=== PATIENT | female | born 1940 | race Caucasian/White ===

== ENCOUNTER 2019-03-04 18:37 | Observation (INO) | payer MEDICARE, OTHER, SELFPAY ==
[2019-03-04 18:38] VITALS: BP 172/74; PULSE 99; RESP 14; RESP 18; TEMP 37.1; O2SAT 98; O2SAT 99; BMI 20.7
--- NOTE | 2019-03-04 18:53 | EKG12_ITS ---
Test Reason : Blood Pressure : / mmHG Vent. Rate : 085 BPM Atrial Rate : 085 BPM P-R Int : 136 ms QRS Dur : 132 ms QT Int : 410 ms P-R-T Axes : 063 071 048 degrees QTc Int : 487 ms Normal sinus rhythm Right bundle branch block Abnormal ECG Confirmed by LAURA CARLIN ([id number]), copy editor NAY DAVIS ([id number]) on 03/07/2019 11:24:24 AM Referred By: Marcus Cavazos Confirmed By:LAURA CARLIN
[2019-03-04 19:15] LABS: Absolute Lymphocyte Count 2.12 X10^3/uL (0.83-4.51); Absolute Neutrophil Count 5.9 X10^3/uL (2.0-7.7); Basophil# 0.05 X10^3/uL; Basophil% 0.5 % (0-1); Eosinophil# 0.14 X10^3/uL; Eosinophils% 1.5 % (0-5); Hematocrit 33.9 % (37-47); Hemoglobin 10.9 g/dL (12.0-15.0); Lymphocyte # 2.12 X10^3/ul (4.0); Lymphocyte % 22.8 % (19-41); Mean Corp Hgb Conc 32.2 g/dL (32-36); Mean Corpuscular Hgb 28.9 pg (27.0-32.0); Mean Corpuscular Volume 89.9 fL (81-99); Mean Platelet Vol. 11.3 fl (6.2-12.0); Monocyte# 1.07 X10^3/uL; Monocyte% 11.5 % (0-10); NRBC Flagged by Analyzer 0 % (0-5); Neutrophil % 63.4 % (47-70); Platelet Count 306 K/mm3 (150-450); RBC Distribution Width SD 49.2 fl (35.1-43.9); Red Blood Count 3.77 M/mm3 (4.2-5.4); White Blood Count 9.3 K/mm3 (4.4-11.0)
[2019-03-04 19:21] LABS: Anion Gap 7 (5-15); BUN 20 mg/dL (7-18); BUN/Creat Ratio 21.6 RATIO (10-20); Calcium,Total 9.5 mg/dL (8.5-10.1); Chloride 107 mmol/L (98-107); Creatinine, Serum 0.93 mg/dL (0.55-1.02); EST Glomerular Filtration Rate 62 mL/min (>60); Est Glom Filt Rate - Afr Amer 75 mL/min (>60); Estimated Creatinine Clearance 43.05 ml/min; Glucose 109 mg/dL (74-106); Potassium 3.6 mmol/L (3.5-5.1); Sodium Level 141 mmol/L (136-145)
[2019-03-04] MEDS: Aspirin 81 MG TAB.CHEW 324 MG PO (19:28)
[2019-03-04 19:39] VITALS: BP 159/63; PULSE 84; RESP 17; O2SAT 100
--- NOTE | 2019-03-04 19:50 | RAD_ITS ---
STUDY: X-RAY CHEST REASON FOR EXAM: Female, 78 years old. Chest pain TECHNIQUE: Frontal and lateral views COMPARISON: None. FINDINGS: The lungs are hyperaerated with mild interstitial prominence. Calcified left upper lobe granuloma. Normal size heart. Normal mediastinum. Granulomas calcifications of the left hilum. Normal visualized pulmonary arteries. Mildly calcified visualized aortic arch and descending thoracic aorta. Degenerative changes of the thoracic spine. Normal visualized ribs, clavicles, and shoulders. There is no demonstrated abnormality of the visualized soft tissue structures of the upper abdomen. RAD/Chest PA and Lateral IMPRESSION: Hyperaeration with mild interstitial prominence. Granulomatous calcifications. Electronically Signed: Bryant Araya DO at 20:12 EST Tel [phone], Service support ,
[2019-03-04 19:54] LABS: D-Dimer Quantitative (DVT/PE) 2.21 FEU/ug/m (0.27-0.49)
--- NOTE | 2019-03-04 19:56 | ED.RN ---
D DIMER 2.21. MD HERNANDEZ NOTIFIED
--- NOTE | 2019-03-04 20:00 | CT_ITS ---
STUDY: CTA CHEST REASON FOR EXAM: Female, 78 years old. Chest pain RADIATION DOSAGE (If Supplied By Facility): CTDIvol = ( 4.4 ) mGy, DLP = ( 155.65 ) mGycm TECHNIQUE: The examination was performed with the intravenous administration of IV 75mL [id number] 75. Post-processing of the angiographic images was performed, with multiplanar reformation and 3D reconstruction. Individualized dose optimization techniques were used for this CT. COMPARISON: None. FINDINGS: Normal enhancement of the main pulmonary artery and right and left pulmonary arteries. Normal enhancement of the bilateral peripheral pulmonary arteries. There is no demonstrated pulmonary embolism. Normal thoracic aorta and visualized great vessels. There is no demonstrated aortic dissection. Normal heart and pericardium. Normal mediastinum. Normal hilar regions. Normal visualized trachea and bronchi. The lungs are well expanded. Normal pulmonary parenchyma. Normal pleura. Normal chest wall structures. Normal osseous structures. Mild atherosclerotic calcifications and thrombus slightly narrowing the superior mesenteric artery. CT/CTA Chest W/WO Contrast IMPRESSION: No demonstrated pulmonary embolism or arterial dissection. Mild SMA stenosis. Electronically Signed: Bryant Araya DO at 21:03 EST Tel [phone], Service support ,
--- NOTE | 2019-03-04 21:44 | HP.PCM_ITS ---
Problem List (1) Chest pain Status: Acute History of Present Illness Date of Admission: 03/04/19 Chief Complaint: chest pain The patient is a 78 year old F with a significant history of osteoporosis; bilateral knee replacement (on December 17, 2018 and January 28, 2019) presenting with chest pain that started few hours before presentation. Her chest pain was transient and it lasted about 10 minutes as such there were no aggravating or ameliorating factors. The chest pain went away by itself. Her chest pain came on after walking the stairs at her home. Her chest pain was preceded with abdominal pain. Also she reported that about a week ago she had abdominal pain that resolved. She denies any nausea; vomiting; or diaphoresis in association with her chest pain. At the emergency department EKG showed right bundle branch block. Because of elevated d-dimer CTPA was done. However CTPA was unremarkable. At the emergency department patient was noted to have severely elevated blood pressure. However patient denied prior history of hypertension. Past Medical History Medical History: Medical History (Last Reviewed 03/05/19 @ 03:51 by Marcus Cavazos MD) Osteoporosis M81.0 Allergies amoxicillin Allergy (Verified 03/04/19 18:37) Unknown Penicillins [PCN] Allergy (Verified 03/04/19 18:37) Unknown Home Medications: Ambulatory Orders Medication Instructions Recorded Calcitriol 0.5 mcg PO SUTUWETHSA 03/04/19 Calcitriol 1 mcg PO MOFR 03/04/19 Calcium Carb/Vitamin D3/Vit K1 1 ea PO DAILY 03/04/19 [Calcium + D Soft Chewable Tab] Cyanocobalamin (Vitamin B-12) 500 mcg PO DAILY 03/04/19 [Vitamin B-12] Multivit-Minerals/Folic Acid 200 mg PO DAILY 03/04/19 [Centrum Vitamints Chew Tab] Raloxifene HCl 60 mg PO DAILY 03/04/19 Surgical History: total knee arthroplasty Lives: Spouse/ Significant Other Smoking Status: Never smoker Alcohol: Occasional - *Family History Maternal History Items: Hypertension Paternal History Items: Heart Disease - His father had to bypass surgery., - - His father was prediabetic. His father was a smoker. Review of Systems Constitutional: Denies: Chills, Fever, Weight Change HEENT: Denies: Head Aches, Sinus Congestion, Sinus Drainage Cardiovascular: Reports: Chest Pain. Denies: Palpitations Respiratory: Denies: Cough, Shortness of breath at rest, Sputum production Gastrointestinal: Reports: Abdominal Pain. Denies: Nausea, Vomiting Genitourinary: Denies: Dysuria Musculoskeletal: Denies: Joint Pain, Joint Tenderness Skin: Denies: Rash, Wounds Neurological: Denies: Numbness, Tingling, Focal weakness Psychiatric: Denies: Anxiety, Depression, Homicidal Ideations, Suicidal Ideations Hematologic/ Lymphatic: Denies: Easy Bruising, Easy Bleeding VTE Information - Inpt Only VTE Present on Admission: No VTE Mechan Device Prophylaxis: SCD's VTE Pharm Prophylaxis ordered?: No Patient Problems: Active and Suspected Problems (Last Updated 03/05/19 @ 02:15 by Marcus Cavazos MD) Chest pain (Acute) - Physical Exam Vitals/I&O's: Vital Signs Temp Pulse Resp BP Pulse Ox 98.8 F 84 17 159/63 H 100 03/04/19 18:38 03/04/19 19:39 03/04/19 19:39 03/04/19 19:39 03/04/19 19:39 Oxygen Flow Rate (L/min) 2 Oxygen Delivery Method Nasal Cannula Weight: 55.7 kg Body Mass Index (BMI) 20.7 General: Alert, Oriented x3, Cooperative HEENT: Atraumatic, PERRLA, EOMI, Normocephalic Neck: Supple, No JVD, Negative Carotid Bruits Lungs: Clear to auscultation, Normal air movement Cardiovascular: Regular rate, No murmurs Abdomen: Bowel Sounds Present, Soft, Non Tender Extremities: No edema, Capillary Refill Less than 3 Seconds Skin: No rashes, No breakdown Musculoskeletal: No Tenderness to Palpation of Joints or Extremities Neurological: Cranial nerves II-XII grossly intact Psych/Mental Status: Normal Affect, Appropriate Laboratory Results 03/04/19 18:50: WBC 9.3, RBC 3.77 L, Hgb 10.9 L, Hct 33.9 L, MCV 89.9, MCH 28.9, MCHC 32.2, RDW Std Deviation 49.2 H, RDW Coeff of Vidal 15.0 H, Plt Count 306, MPV 11.3, Immature Gran % (Auto) 0.300, Neut % (Auto) 63.4, Lymph % (Auto) 22.8, [place] % (Auto) 11.5 H, Eos % (Auto) 1.5, Baso % (Auto) 0.5, Absolute Neuts (auto) 5.9, Absolute Lymphs (auto) 2.12, Nucleated RBC % 0 03/04/19 18:50: Sodium 141, Potassium 3.6, Chloride 107, Carbon Dioxide 27.0, Anion Gap 7, BUN 20 H, Creatinine 0.93, Estim Creat Clear Calc 43.05, Est GFR (MDRD) Af Amer 75, Est GFR (MDRD) Non-Af 62, BUN/Creatinine Ratio 21.6 H, Glucose 109 H, Calcium 9.5, Troponin I < 0.015 03/04/19 18:50: D-Dimer Quant (PE/DVT) 2.21 H* Assessment/Plan All Active Problems (Last Updated 03/05/19 @ 02:15 by Marcus Cavazos MD) Chest pain (Acute) The patient is a 78 year old F with a significant history of osteoporosis; bilateral knee replacement (on December 17, 2018 and January 28, 2019) presenting with chest pain. Chest Pain Place on a monitored bed at PCU CXR showed granulomatous calcifications. Hyper aeration with mild interstitial prominence. Because of high d-dimer chest CT was done. Chest CT showed no demonstrated pulmonary embolism or arterial disease. It showed mild SMA stenosis. EKG independently reviewed confirms right bundle branch block Received aspirin 324 mg in emergency department. ASA 81 mg p.o. daily We will check lipid panel. Serial cardiac enzymes are intermittent unremarkable. Stat EKG as needed for chest pain Nuclear stress test in the AM. Patient is not a candidate of treadmill stress test because of knee replacements. Elevated blood pressure diagnosis of hypertension We will start patient on amlodipine. Trend blood pressure and adjust blood pressure medication as necessary. DVT prophylaxis SCD while planning for cardiac work up for chest pain Code Visit OBSV E&M: 23614 Initial observation care L3
--- NOTE | 2019-03-04 22:03 | ED.DCSUM_ITS ---
History of Present Illness Chief Complaint: Chest Pain Informant: Patient Narrative: Patient presenting for evaluation secondary to chest pain. Patient states that about 5 PM prior to arrival she had onset of chest pain. She describes this as a burning type sensation that was associated with pressure, it lasted about 10 minutes and then spontaneously resolved. No necessarily exacerbating or relieving factors were associated with this. She is never had any prior similar episodes in the past. Patient does report that she had a recent history of partial knee replacements bilaterally in her knees most recently being in January. She denies any history of DVT or PE hemoptysis or shortness of breath associated with this. No fevers associated with this. She is never had a stress test, denies any cardiovascular risk factors and is a non-smoker. Past Medical History - Allergies and Home Meds Allergies/Adverse Reactions: Allergies amoxicillin Allergy (Verified 03/04/19 18:37) Unknown Penicillins [PCN] Allergy (Verified 03/04/19 18:37) Unknown Past Medical History: None Surgical History: - - Recent knee surgery Smoking Status: Never smoker Review of Systems All systems negative except as indicated General: Denies: Chills, Fever, Sweats Eyes: Denies: Visual changes - bilaterally, Diplopia ENT: Denies: Rhinorrhea, Sore throat Cardiovascular: Reports: Chest pain Respiratory: Denies: Dyspnea, Cough, Dyspnea on exertion Gastrointestinal: Denies: Abdominal pain, Nausea, Vomiting, Diarrhea, Melena, Hematochezia Genitourinary: Denies: Dysuria, Hematuria, Frequency Musculoskeletal: Denies: Back pain, Extremity Pain Skin: Denies: Rash, Wounds Neurological: Denies: Headache, Weakness, Numbness Psych: Denies: Depression Endocrine: Denies: Polyuria Hematologic: Denies: Easy bruising, Easy bleeding Allergy: Denies: Swelling of the mouth Physical Exam Vital Signs/Narrative: Vital Signs Temp Pulse Resp BP Pulse Ox 03/04/19 19:39 84 17 159/63 H 100 03/04/19 18:38 98.8 F 99 18 172/74 H 99 Inital Vital Signs reviewed: Yes General: Well nourished, Well developed, No Acute Distress Head: Normocephalic, Atraumatic Eyes: Perrl, EOMI ENT: Moist mucous membranes, No rhinorrhea Neck: Supple, Nontender Cardiovascular: Regular rate, Regular rhythm, No murmurs Respiratory: No distress, CTA bilaterally, Chest nontender Abdomen: Soft, Nontender, Nondistended, Normal bowel sounds Back: Nontender, Normal Inspection Extremities: No edema, - - Incisions from the patient's surgeries are clean dry and intact and noninfected Skin: Normal color, No rash Neurological: Alert, Oriented x3, Cranial nerves II-XII grossly intact, Normal Strength, Normal Sensation Psychological: Normal affect, Normal Mood Diagnostic/Tx/Re-eval Chest X-Ray - ED: 2 View, Read by ED Physician, Read by Radiologist, Normal - EKG Initial EKG Interpretation: - - Sinus rhythm of 85 with right bundle branch block morphology. No evidence of acute ischemia or arrhythmia. - Medical Decision Making Patient presented secondary to chest pain. Cardiac work-up was obtained patient was given aspirin. CBC chemistry troponin were found to be unremarkable. D- dimer was initiated due to the patient's recent surgery and was found to be significantly elevated. Chest x-ray negative by my personal review as well as radiology. CT angiogram of the chest was found to be negative. Patient's heart score is a 4, I believe she requires admission for cardiac rule out. This will be discussed with the hospitalist. ED Disposition - Plan for ED Patient: Disposition: Acute Care Hospital [facility] Diagnosis: Chest pain
[2019-03-04 22:04] VITALS: BP 161/63; PULSE 75; PULSE 76; RESP 15; RESP 18; O2SAT 97
--- NOTE | 2019-03-04 22:26 | EKG12_ITS ---
Test Reason : CP ADMIT Blood Pressure : / mmHG Vent. Rate : 076 BPM Atrial Rate : 076 BPM P-R Int : 126 ms QRS Dur : 126 ms QT Int : 440 ms P-R-T Axes : 059 074 053 degrees QTc Int : 495 ms Normal sinus rhythm Right bundle branch block Abnormal ECG When compared with ECG of 09-DEC-1999 17:44, Right bundle branch block is now Present Confirmed by LAURA CARLIN ([id number]), publication editor NAY DAVIS ([id number]) on 03/07/2019 11:59:15 AM Referred By: Marcus Cavazos Confirmed By:LAURA CARLIN
[2019-03-04 22:31] VITALS: PULSE 75
[2019-03-04 22:35] VITALS: BP 150/89; PULSE 75; RESP 18; TEMP 36.6; O2SAT 97
[2019-03-04 22:38] VITALS: BP 162/71
[2019-03-04 22:47] VITALS: BMI 20.1
[2019-03-04] MEDS: amLODIPine 5 MG Tablet PO (23:22)
[2019-03-05 01:30] VITALS: O2SAT 94
[2019-03-05 03:23] VITALS: PULSE 78
[2019-03-05] MEDS: Aspirin E.C. 81 MG Tablet PO (04:34)
[2019-03-05 04:35] VITALS: BP 135/73; PULSE 89; RESP 18; TEMP 36.8; O2SAT 98
[2019-03-05 06:00] LABS: Cholesterol 174 mg/dL (200); High Density Lipoprotein 47 mg/dL; Triglycerides 98 mg/dL; Very Low Density Lipoprotein 20 mg/dL (5-40)
[2019-03-05 07:14] VITALS: PULSE 75
[2019-03-05 07:50] VITALS: O2SAT 97
[2019-03-05 11:06] VITALS: BP 122/62; PULSE 95; RESP 16; TEMP 36.8; O2SAT 100
--- NOTE | 2019-03-05 11:07 | NURSING ---
[facility]SA LATE DUE TO PT BEING OFF FLOOR FOR STRESS TEST
[2019-03-05] MEDS: amLODIPine 5 MG Tablet PO (11:11)
--- NOTE | 2019-03-05 11:25 | DCINST_ITS ---
- Discharge Diagnoses Current Active Problems: Current Active and Chronic Problems (Last Reviewed 03/05/19 @ 03:51 by Marcus Cavazos MD) Chest pain (Acute) You will use the following diet at home:: No restrictions Your food should be the consistency of: Regular Your liquids should be the consistency of: Regular/Thin Discharge Activity: Return to Normal Activity Weight Bearing Status: Full weight bearing Allergies/Adverse Reactions: Allergies amoxicillin Allergy (Verified 03/04/19 18:37) Unknown Penicillins [PCN] Allergy (Verified 03/04/19 18:37) Unknown Medications to take at Discharge Calcitriol 0.5 mcg PO SUTUWETHSA 03/04/19 Calcitriol 1 mcg PO MOFR 03/04/19 Calcium Carb/Vitamin D3/Vit K1 [Calcium + D Soft Chewable Tab] 1 ea PO DAILY 03/04/19 Cyanocobalamin (Vitamin B-12) [Vitamin B-12] 500 mcg PO DAILY 03/04/19 Multivit-Minerals/Folic Acid [Centrum Vitamints Chew Tab] 200 mg PO DAILY 03/04/19 Raloxifene HCl 60 mg PO DAILY 03/04/19 Primary Care Physician: Jordan Brumfield III, MD [Primary Care Provider] - Please follow up with your Primary Care Physician in: in 7-10 days Test Results: Test results from this visit will be discussed in further detail at your follow- up appointment, if applicable.
--- NOTE | 2019-03-05 15:47 | DS.PCM_ITS ---
Discharge Date and Diagnosis Date of Admission: 03/04/19 Date of Discharge: 03/05/19 - Primary Discharge Diagnosis #1 musculoskeletal chest pain Hospital Course and Treatment Operations: None Procedures: Nuclear stress test Summary of Care Provided: The patient is a 78 year old F seen and examined in the emergency room at [facility] with chief complaint of chest pain. Labs obtained in the emergency room showed her cardiac enzymes to be normal, d-dimer was elevated at 2.21, patient underwent a CT of the chest which showed no evidence of pulmonary embolism or acute infiltrate. Patient was placed in observation status on PCU, cardiac enzymes are cycled and these remain normal. On 03/05/2019, patient underwent a nuclear stress test which was negative for reversible ischemia. On that date, patient was seen and examined: On examination she appeared in good health and spirits. Vital signs as documented. Skin warm and dry and without overt rashes. Neck without JVD. Lungs clear. Heart exam notable for regular rhythm, normal sounds and absence of murmurs, rubs or gallops. Abdomen unremarkable and without evidence of organomegaly, masses, or abdominal aortic enlargement. Extremities nonedematous. Neuro: Cranial nerves II through XII are grossly intact, no focal motor deficits were noted, sensation to light touch and pinprick is intact. Psych: Patient is alert and oriented x3, she does not appear anxious or depressed On 03/05/2019, patient was seen and examined felt to be in stable condition for discharge home. - Physical Exam Vitals/I&O's: Vital Signs Temp Pulse Resp BP Pulse Ox 98.3 F 95 16 122/62 H 100 03/05/19 11:06 03/05/19 11:06 03/05/19 11:06 03/05/19 11:06 03/05/19 11:06 Oxygen Flow Rate (L/min) 2 Oxygen Delivery Method Room Air Weight: 53 kg Body Mass Index (BMI) 20.0 Intake and Output for Last 24 Hours 03/03/19 03/04/19 03/05/19 23:59 23:59 23:59 Intake Total 120 / 120 240 / 240 Balance 120 / 120 240 / 240 Laboratory Results 03/04/19 18:50: WBC 9.3, RBC 3.77 L, Hgb 10.9 L, Hct 33.9 L, MCV 89.9, MCH 28.9, MCHC 32.2, RDW Std Deviation 49.2 H, RDW Coeff of Vidal 15.0 H, Plt Count 306, MPV 11.3, Immature Gran % (Auto) 0.300, Neut % (Auto) 63.4, Lymph % (Auto) 22.8, [place] % (Auto) 11.5 H, Eos % (Auto) 1.5, Baso % (Auto) 0.5, Absolute Neuts (auto) 5.9, Absolute Lymphs (auto) 2.12, Nucleated RBC % 0 03/04/19 18:50: Sodium 141, Potassium 3.6, Chloride 107, Carbon Dioxide 27.0, Anion Gap 7, BUN 20 H, Creatinine 0.93, Estim Creat Clear Calc 43.05, Est GFR (MDRD) Af Amer 75, Est GFR (MDRD) Non-Af 62, BUN/Creatinine Ratio 21.6 H, Glucose 109 H, Calcium 9.5, Troponin I < 0.015 03/04/19 18:50: D-Dimer Quant (PE/DVT) 2.21 H* 03/04/19 21:56: Troponin I < 0.015 03/05/19 00:30: Troponin I < 0.015 03/05/19 05:24: Triglycerides 98, Cholesterol 174, LDL Cholesterol 107, VLDL Cholesterol 20, HDL Cholesterol 47 Discharge Activity: Return to Normal Activity Weight Bearing Status: Full weight bearing Home Medications: Medications to take at Discharge Calcitriol 0.5 mcg PO SUTUWETHSA 03/04/19 Calcitriol 1 mcg PO MOFR 03/04/19 Calcium Carb/Vitamin D3/Vit K1 [Calcium + D Soft Chewable Tab] 1 ea PO DAILY 03/04/19 Cyanocobalamin (Vitamin B-12) [Vitamin B-12] 500 mcg PO DAILY 03/04/19 Multivit-Minerals/Folic Acid [Centrum Vitamints Chew Tab] 200 mg PO DAILY 03/04/19 Raloxifene HCl 60 mg PO DAILY 03/04/19 Primary Care Physician: Jordan Brumfield III, MD [Primary Care Provider] - Please follow up with your Primary Care Physician in: in 7-10 days Disposition: Home Minutes spent on discharge:: 30 Patient Condition:: Stable Medical Necessity - Tobacco Use Smoking Status: Never smoker Meaningful Use Info Meaningful Use Diagnoses (Choose all that apply): None applicable Code Visit OBSV E&M: 94141 Observation care discharge
--- NOTE | 2019-03-05 16:44 | STRESSREP ---
Stress Test Report Pharmacologic myocardial perfusion stress test. 78-year-old lady with a history of chest pain. Stress protocol: Resting EKG demonstrates normal sinus rhythm with a rate of 80 bpm normal intervals are noted resting blood pressure is 130/84 mmHg. 0.4 mg of regadenoson was infused per usual protocol followed up intravenous saline flush injection continuous monitoring engineer was performed. The maximum heart rate attained was 109 bpm which was 76% of maximum predicted heart rate maximum workload was 1 metabolic equivalent. At rest with no ST or T wave changes noted suggest abnormal flow reserve at peak infusion nonspecific ST-T wave changes were noted. Myocardial perfusion protocol. 10.0 mCi of technetium 99m sestamibi was injected at rest. 0.4 mg of regadenoson was infused per usual protocol peak infusion 30.0 mCi of technetium 99m sestamibi was injected stress images were obtained stress and rest images were reconstructed in comparing the short axis vertical long horizontal long axis. Gated images was obtained PACS Perfusion SPECT analysis: Review of the stress images demonstrate normal uptake of tracer noted in all areas of myocardium. The resting images similarly demonstrate normal uptake of tracer noted in all areas of myocardium no reversibility is no suggest ischemia. Gated SPECT analysis: The gated ejection fraction is over 80%. Conclusion: Normal pharmacologic myocardial perfusion stress test. Preserved ejection fraction.
== END 2019-03-05 11:25 | disposition home or self-care (01) ==
LOC: ED 19:06 → PCU 22:04
PROVIDERS: Admitting Provider Hospitalist; Emergency Provider Emergency Medicine; Family Provider Family Medicine; PCP Family Medicine; Referring Provider Hospitalist; Visit Provider Internal Medicine
DX: R07.89 Other chest pain (principal); I45.10 Unspecified right bundle-branch block; M81.0 Age-related osteoporosis without current pathological fracture; Z79.899 Other long term (current) drug therapy; I10 Essential (primary) hypertension
CPT/HCPCS: 36415; 71046; 71275; 78452; 80048; 80061; 84484; 85025; 85379; 93005; 93017; 99218; 99285; A9500; J7030; Q9967; A4216; G0378; J2785

== ENCOUNTER 2019-08-15 08:58 | Emergency (ER) | payer MEDICARE, SELFPAY ==
[2019-08-15] VITALS (10 sets, daily range): BP systolic 125–215; BP diastolic 64–104; PULSE 66–99; RESP 12–17; TEMP 36.8; O2SAT 96–99; BMI 20.8
--- NOTE | 2019-08-15 09:17 | EKG12_ITS ---
Test Reason : HEAD INJURY Blood Pressure : / mmHG Vent. Rate : 091 BPM Atrial Rate : 091 BPM P-R Int : 174 ms QRS Dur : 140 ms QT Int : 436 ms P-R-T Axes : 073 084 052 degrees QTc Int : 536 ms Normal sinus rhythm Right bundle branch block Abnormal ECG Confirmed by PHUC ZUÑIGA MD ([id number]), editorial cartoonist NAY DAVSI ([id number]) on 08/18/2019 3:14:14 PM Referred By: BARBIE Confirmed By:PHUC ZUÑIGA MD
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
--- NOTE | 2019-08-15 09:17 | RAD_ITS ---
STUDY: X-RAY CHEST REASON FOR EXAM: Female, 79 years old. FALL. PAIN LEFT HIP TECHNIQUE: Single AP portable view of the chest. COMPARISON: Comparison is made with prior study dated March 04, 2019. FINDINGS: EKG electrodes are seen. Hyperinflation. Scattered calcified granulomas. There is no demonstrated pleural abnormality. Normal size heart. Normal mediastinum and cely. Normal visualized pulmonary arteries. There is atherosclerotic calcification of the aortic arch with tortuosity. There is a levoscoliosis of the thoracic spine. Normal visualized ribs, clavicles, and shoulders. There is no demonstrated abnormality of the visualized soft tissue structures of the upper abdomen. RAD/Chest 1 View (Portable) IMPRESSION: Hyperinflation. Electronically Signed: James Bell, at 10:19 EDT , Service support ,
--- NOTE | 2019-08-15 09:18 | RAD_ITS ---
STUDY: X-RAY - PELVIS AND LEFT HIP REASON FOR EXAM: Female, 79 years old. FALL. PAIN LEFT HIP TECHNIQUE: 3 views of the pelvis and hip. COMPARISON: None. FINDINGS: There is a non-specific bowel gas pattern. There are multiple calcified phleboliths. There is narrowing with cortical sclerosis and osteophyte formation of the sacroiliac joint consistent with degenerative osteoarthritic changes. Normal bilateral superior and inferior pubic rami. Normal pubic symphysis. There is prominent enthesophyte formation involving the hamstring tendon origins from the ischial tuberosities. Normal visualized femoral head. Normal acetabulum. There is moderate articular joint space narrowing of the hip. RAD/HIP, UNI W/ Pelvis 2-3 Views IMPRESSION: Degenerative changes. No fracture is seen. Electronically Signed: James Bell, at 10:18 EDT , Service support ,
--- NOTE | 2019-08-15 09:19 | ED.VISSUMM ---
- ER Visit Summary Date of Service: 08/15/19 Chief Complaint: Weakness, fall, confusion, hypertension History of Present Illness: The patient is a 79 F who presents with the above symptoms. EMS was called today for elevated blood pressure at home. It was 215/109. Patient has been complaining of diffuse overall weakness. She states that she has the starting of dementia. She had a fall 5 days ago. They were outside looking at birds when she fell and hit the left side of her head. She also hit her left arm and left hip. She has been walking ever since but she has been a little bit off balance according to family. Her confusion has been a little bit worse since then. The patient states that she feels shaky she complains of a little bit of a headache on the left side but denies any left shoulder or left hip pain. Physical Examination: Vital signs reviewed. HEENT exam unremarkable. Heart is regular rate and rhythm without murmurs. Lungs are clear to auscultation. Abdomen is soft and nontender. Extremities reveal no edema. She does have evidence of ecchymosis in the left deltoid and left greater trochanter area. There is no tenderness. She has full range of motion of these joints. Skin exam normal. Neurologic exam has diffuse overall weakness. No slurred speech or facial droop. She is alert and oriented to person and place but not oriented to time. Test Results: Hemoglobin 11.3, potassium 3.0, chloride 108. Creatinine 1.76. Calcium is 12.6. Troponin is normal. EKG was sinus rhythm with a right bundle branch block. CAT scan of the head reveals a hemorrhagic contusion measuring 4 x 4 mm in the left frontal lobe. Chest x-ray and left hip x-ray revealed no acute findings. Emergency Department Course and Treatment: Due to the patient's history of a fall and the cerebral contusion I feel she likely needs transferred for trauma care and neurosurgical consultation. Patient requested [facility] as she has been there before for a surgery. Patient was discussed with Dr. Ruffin and will be transferred by ground ambulance. I did give her 1 dose of labetalol because her blood pressure was 170/100. Treatment Plan: [] Disposition: Transfer Impression: Cerebral contusion status post fall, acute kidney injury This note was generated with ebookpieation software. It may contain incorrect words, spelling, and punctuation that were not noted in review of the chart prior to signing ED Disposition - Plan for ED Patient: Referrals: Jordan Brumfield III, MD [Primary Care Provider] -
[2019-08-15 09:29] LABS: Absolute Lymphocyte Count 2.13 X10^3/uL (0.83-4.51); Absolute Neutrophil Count 4.9 X10^3/uL (2.0-7.7); Basophil# 0.04 X10^3/uL; Basophil% 0.5 % (0-1); Eosinophil# 0.08 X10^3/uL; Hematocrit 35.8 % (37-47); Hemoglobin 11.3 g/dL (12.0-15.0); Lymphocyte # 2.13 X10^3/ul (4.0); Lymphocyte % 26.6 % (19-41); Mean Corp Hgb Conc 31.6 g/dL (32-36); Mean Corpuscular Hgb 28.5 pg (27.0-32.0); Mean Corpuscular Volume 90.4 fL (81-99); Mean Platelet Vol. 11.6 fl (6.2-12.0); Monocyte# 0.79 X10^3/uL; Monocyte% 9.9 % (0-10); NRBC Flagged by Analyzer 0 % (0-5); Neutrophil # 4.93 X10^3/uL (2.7-7.7); Neutrophil % 61.6 % (47-70); Platelet Count 209 K/mm3 (150-450); RBC Distribution Width CV 14.6 % (11.6-14.6); RBC Distribution Width SD 48.1 fl (35.1-43.9); Red Blood Count 3.96 M/mm3 (4.2-5.4)
[2019-08-15 10:06] LABS: AST(SGOT) 32 U/L (15-37); Alanine Aminotransfer ALT/SGPT 24 U/L (13-56); Albumin, Serum 3.7 g/dL (3.2-5.0); Alkaline Phosphatase 67 U/L (45-117); Anion Gap 7 (5-15); BUN 27 mg/dL (7-18); BUN/Creat Ratio 15.3 RATIO (10-20); Calcium,Total 12.6 mg/dL (8.5-10.1); Chloride 108 mmol/L (98-107); Creatinine, Serum 1.76 mg/dL (0.55-1.02); EST Glomerular Filtration Rate 30 mL/min (>60); Est Glom Filt Rate - Afr Amer 36 mL/min (>60); Globulin 3.6 g/dL (2.2-4.2); Glucose 88 mg/dL (74-106); Protein, Total 7.3 g/dL (6.4-8.2); Sodium Level 145 mmol/L (136-145)
[2019-08-15 10:32] LABS: Bacteria 0 SEEN /hpf (None Seen); Mucous, Urine 0 SEEN /hpf (<or=2+); Red Blood Cells-Urine 0 SEEN /hpf (0-5); Squamous Epithelial Cells - UA 0 SEEN /hpf (5-10); White Blood Cells 0 SEEN /hpf (0-5)
[2019-08-15 10:34] LABS: Color, Urine Yellow (Yellow); Glucose, Dipstick Normal (Normal); Ketone-Dipstick Negative (Negative); Leukocyte Esterase-Dipstick Negative /ul (Negative); Nitrite-Dipstick Negative (Negative); Occult Blood-Urine 25 /ul (Negative); Protein-Dipstick 30 mg/dl (Negative); Specific Gravity, Urine 1.015 (1.002-1.030); Urine Bilirubin Dipstick Negative (Negative); Urine Clarity Clear (Clear); Urine Urobilinogen Normal (Normal)
[2019-08-15] MEDS: hydrALAZINE 20 MG/ML Vial IV (11:46)
== END 2019-08-15 12:05 | disposition short-term general hospital (02) ==
PROVIDERS: Emergency Provider Emergency Medicine; PCP Family Medicine
DX: S06.329A Contusion and laceration of left cerebrum with loss of consciousness of unspecified duration, initial encounter (principal); W19.XXXA Unspecified fall, initial encounter; Y93.89 Activity, other specified; Y92.007 Garden or yard of unspecified non-institutional (private) residence as the place of occurrence of the external cause; N17.9 Acute kidney failure, unspecified; I45.10 Unspecified right bundle-branch block; F03.90 Unspecified dementia, unspecified severity, without behavioral disturbance, psychotic disturbance, mood disturbance, and anxiety; R03.0 Elevated blood-pressure reading, without diagnosis of hypertension
CPT/HCPCS: 70450; 71045; 73502; 80053; 81001; 84484; 85025; 93005; 96374; 96375; 99285; A4216

== ENCOUNTER → 2020-01-13 09:41 | Outpatient (CLI) | payer MEDICARE, SELFPAY ==
[2019-12-23 10:04] VITALS: BMI 20.8
--- NOTE | 2020-01-13 09:49 | BD_ITS ---
STUDY: DUAL ENERGY X-RAY ABSORPTIOMETRY / DXA REASON FOR EXAM: Female, 79 years old. 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 COMPARISON: Comparison is made with prior examination dated 06/26/2000. FINDINGS: Lumbar Spine (L1-L4): g/cm2 (0.843) / T-score (-2.8) / Z-score (-1.0) Findings are suggestive of osteoporosis with a high fracture risk. Left Femur Total: g/cm2 (0.831) / T-score (-1.4) / Z-score (0.6) Left Femoral Neck: g/cm2 (1.033) / T-score (0.0) / Z-score (2.1) Right Femur Total: g/cm2 (0.800) / T-score (-1.6) / Z-score (0.6) Right Femoral Neck: g/cm2 (1.012) / T-score (-0.2) / Z-score (1.9) The T-Scores on the most recent prior examination were: Lumbar Spine (L1-L4): There has been worsening of bone density since the previous examination. BD/Dexa Bone Density Study IMPRESSION: The patient is considered osteoporotic as outlined below according to World Delgado Organization (WHO) criteria with a high fracture risk. There has been worsening of bone density since the previous examination. Reference Information: The T-score is the number of standard deviations above or below the standard which is normal for young adults at their peak bone mineral density. The World Health Organization (WHO) interprets the T-scores as follows: Above -1 Normal bone density Between -1 and -2.5 Osteopenia Equal to / or below -2.5 Osteoporosis As a practical clinical guideline, osteopenia may be graded as follows: Mild -1 through -1.5 Moderate -1.6 through -2.0 Severe -2.1 through -2.4 The Z-score is the number of standard deviations above or below age-matched controls. A Z-score of less than -1.5 would be considered abnormal. References: 1. NIH Osteoporosis and Related Bone Diseases www osteo.org 2. International Society for Clinical Densitometry www iscd.org 3. National Osteoporosis Foundation www nof.org Electronically Signed: James Bell, at 8:38 EDT , Service support ,
== END ==
PROVIDERS: PCP Family Medicine; Referring Provider Internal Medicine Endocrinology, Diabetes & Metabolism; Visit Provider Internal Medicine Endocrinology, Diabetes & Metabolism
DX: M81.0 Age-related osteoporosis without current pathological fracture (principal)
CPT/HCPCS: 77080

== ENCOUNTER → 2020-02-11 14:29 | Outpatient (CLI) | payer MEDICARE, SELFPAY ==
[2019-12-23 10:04] VITALS: BMI 20.8
[2020-02-11 14:41] VITALS: BP 127/70; PULSE 90; RESP 16; TEMP 36.7; O2SAT 97; BMI 18.3
[2020-02-11] MEDS: DENOSUMAB 60 MG/ML SQ (14:43)
== END ==
PROVIDERS: PCP Family Medicine; Referring Provider Internal Medicine Endocrinology, Diabetes & Metabolism; Visit Provider Internal Medicine Endocrinology, Diabetes & Metabolism
DX: M85.80 Other specified disorders of bone density and structure, unspecified site (principal)
CPT/HCPCS: 96372; J0897

== ENCOUNTER → 2020-05-12 14:36 | Outpatient (CLI) | payer MEDICARE, SELFPAY ==
[2020-02-11 14:41] VITALS: BMI 18.3
[2020-05-12 15:48] LABS: Vitamin D,25 Hydroxy 47.8 ng/mL
[2020-05-12 15:59] LABS: Free T3 1.9 pg/mL (2.18-3.98); T4 Free Direct 1.24 ng/dL (0.76-1.46); Thyroid Stim Hormone (TSH) 2.47 uIU/mL (0.358-3.74)
== END ==
PROVIDERS: PCP Family Medicine; Referring Provider Internal Medicine Endocrinology, Diabetes & Metabolism; Visit Provider Internal Medicine Endocrinology, Diabetes & Metabolism
DX: R94.6 Abnormal results of thyroid function studies (principal); E55.9 Vitamin D deficiency, unspecified; T45.2X1A Poisoning by vitamins, accidental (unintentional), initial encounter
CPT/HCPCS: 36415; 82306; 84439; 84443; 84481

== ENCOUNTER → 2020-08-11 14:27 | Outpatient (CLI) | payer MEDICARE, SELFPAY ==
[2019-12-23 10:04] VITALS: BMI 20.8
[2020-02-11 14:41] VITALS: BMI 18.3
[2020-08-11 14:55] VITALS: BP 139/52; PULSE 72; RESP 16; TEMP 36.6; O2SAT 98; BMI 18.5
[2020-08-11] MEDS: DENOSUMAB 60 MG/ML SC (15:10)
== END ==
PROVIDERS: PCP Family Medicine; Referring Provider Internal Medicine Endocrinology, Diabetes & Metabolism; Visit Provider Internal Medicine Endocrinology, Diabetes & Metabolism
DX: M85.80 Other specified disorders of bone density and structure, unspecified site (principal)
CPT/HCPCS: 96372; J0897

== ENCOUNTER → 2020-12-27 | Outpatient (CLI) | payer MEDICARE, SELFPAY ==
[2020-12-27 12:51] LABS: (24 HR) Urine Calcium 56.4 mg/24 HR (42.0-353.0); 24HR UR TOTAL VOLUME 575 ml; Calcium Urine pH Range 1; Urine Calcium (Random) 9.8 (Not Estab.)
== END | disposition home or self-care (01) ==
LOC: LABSPEC 09:39
PROVIDERS: PCP Family Medicine; Referring Provider Internal Medicine Endocrinology, Diabetes & Metabolism; Visit Provider Internal Medicine Endocrinology, Diabetes & Metabolism
DX: E21.3 Hyperparathyroidism, unspecified (principal)
CPT/HCPCS: 81050; 82340

== ENCOUNTER 2021-03-14 19:18 | Emergency (ER) | payer MEDICARE, SELFPAY ==
[2021-03-14 19:20] VITALS: PULSE 103; RESP 12; TEMP 39.6; O2SAT 96; BMI 23.4
[2021-03-14 19:23] VITALS: BP 153/66; PULSE 103; RESP 12; TEMP 39.6; O2SAT 96
--- NOTE | 2021-03-14 19:48 | EKG12_ITS ---
Test Reason : FEVER Blood Pressure : / mmHG Vent. Rate : 094 BPM Atrial Rate : 094 BPM P-R Int : 136 ms QRS Dur : 136 ms QT Int : 392 ms P-R-T Axes : 054 073 032 degrees QTc Int : 490 ms Normal sinus rhythm Right bundle branch block Abnormal ECG Confirmed by CATALINA AGUIRRE, KASANDRA ([id number]), news video editor CHEVY NOEL ([id number]) on 03/16/2021 10:46:32 AM Referred By: MÓNICA Confirmed By:KASANDRA ARNOLD MD
--- NOTE | 2021-03-14 19:49 | EX.ED.DYSGE1 ---
HPI History of Present Illness Chief Complaint: Weakness Informant: patient and spouse/S.O. Narrative Narrative: 80-year-old female presenting to the emergency department with confusion and weakness. Her provides the history but unfortunately he is very distracted and rubbing the patient's foot that she is having a cramp so it is difficult to get clear answers to questions such as what happened today. Reportedly he patient was on an unknown antibiotic recently for urinary tract infection. states that today around noon the patient seemed well. Suddenly when she was upstairs on the commode she was unable to get up and was confused. Nursing now notes a fever of 103. Patient denies any cough shortness of breath sore throat runny nose dysuria diarrhea or vomiting. She states that she is chilled [facility] Medical History Allergies Arthritis Hearing disorder History of back problems HTN (hypertension) Hypercalcemia Hyperparathyroidism Osteoporosis Home Medications multivit with min-folic acid 200 mg PO DAILY 03/04/19 [History Last Taken 03/03/19] magnesium 30 mg tablet 1,000 mg PO DAILY tab 12/23/19 [History Last Taken Unknown] levothyroxine 25 mcg tablet 25 mcg PO DAILY #1 tab 05/18/20 [Rx Last Taken Unknown] alendronate 70 mg PO QWEEK 03/14/21 [History Last Taken Unknown] Allergy/AdvReac Type Severity Reaction Status Date / Time amoxicillin Allergy Unknown Verified 03/14/21 19:23 Penicillins [PCN] Allergy Unknown Verified 03/14/21 19:23 Family History Other Asthma Social History Smoking Status: Never smoker alcohol intake: never substance use type: does not use ROS ROS ED ROS Narrative Confusion and fatigue Constitutional Constitutional ED: Reports chills and fever(s); Denies weight loss Eyes Eyes: Denies change in vision or diplopia ENT ENT ED: Denies ear pain, rhinorrhea or sore throat Cardiovascular Cardiovascular: Denies chest pain, orthopnea, palpitations or racing heartbeat Respiratory/Chest Respiratory/Chest: Denies cough, dyspnea or orthopnea Gastrointestinal Gastrointestinal: Denies abdominal pain, diarrhea, nausea or vomiting Genitourinary Genitourinary ED: Denies dysuria, hematuria or urinary frequency Musculoskeletal Musculoskeletal: Denies arthralgias or myalgias Integumentary Denies abscess or rash Neurologic Neurologic: Denies headache(s) or weakness Psychiatric Psychiatric: Denies anxiety, depression, suicidal ideation or suicidal thoughts Endocrine Endocrinology: Denies polydipsia, polyphagia or polyuria Allergic/Immunologic Allergic/Immunologic ED: Denies mouth swelling, tongue swelling or urticaria EXAM Physical Exam Const Vital Signs: 03/14/21 19:20 03/14/21 19:23 03/14/21 19:24 Temperature 103.3 F H 103.3 F H Temperature Source Oral Oral Pulse Rate 103 H 103 H Respiratory Rate 12 12 Respiratory Effort Normal Non-Labored Blood Pressure 153/66 H Blood Pressure Mean 95 Pulse Ox 96 96 Oxygen Delivery Method Room Air Room Air 03/14/21 19:52 03/14/21 21:09 Temperature 103.2 F H 98.8 F Temperature Source Oral Oral Pulse Rate 95 86 Respiratory Rate 14 Respiratory Effort Blood Pressure 120/56 L Blood Pressure Mean 77 Pulse Ox 94 Oxygen Delivery Method Room Air Positive well nourished and well developed General Appearance ED: well developed HEENT Reports normocephalic, head/scalp atraumatic, TM's clear and moist mucous membranes Tympanic Membrane ED: Yes TM's clear Eyes PERRL and EOMs intact bilaterally Neck no lymphadenopathy, supple and no JVD Resp normal respiratory effort and clear to auscultation bilaterally Cardio regular rate and no murmurs Rate: tachycardic GI normal to inspection, nondistended, normoactive bowel sounds and non-tender Palpation: soft Back/Spine no CVA tenderness and normal ROM Extremity normal to inspection General Extremety ED: Negative for edema General Extremity: Negative for edema Neuro CN's II-XII intact bilaterally Sensorium / Orientation: alert and orientation impaired Motor Exam: strength 5/5 throughout Psych Mood & Affect: Negative for depressed or tearful Skin no rashes or lesions noted and no wounds MDM MDM MDM Narrative Medical decision making narrative: White count slightly elevated 12.1. Platelet count normal at 191 with hemoglobin 12.9. Coags are normal. Creatinine 1.17 with a BUN of 21 otherwise electrolytes are within normal limits. Glucose 134. Liver enzymes are normal. Lactic acid and urinalysis are normal. My interpretation of the chest x-ray is no acute process. Influenza and Covid testing is negative. Patient received Tylenol and her fever has been reduced. Once her fever is down the patient feels pretty good and would like to go home. We do have blood cultures pending. Patient was advised that she will most likely spike a fever again. I do not have a strong explanation for the patient's fever but I feel like this may be more viral in nature. and patient were advised to return instructions the note understanding and comfort with the plan Lab Data Attestation: I reviewed the patient's lab results. Labs: Laboratory Results - last 24 hr 03/14/21 03/14/21 03/14/21 19:25 19:25 19:25 WBC 12.1 H RBC 4.68 Hgb 12.9 Hct 40.3 MCV 86.1 MCH 27.6 MCHC 32.0 RDW Std Deviation 45.5 H RDW Coeff of Vidal 14.6 Plt Count 191 MPV 12.1 H Immature Gran % (Auto) 1.100 H Neut % (Auto) 90.9 H Lymph % (Auto) 3.0 L [place] % (Auto) 4.6 Eos % (Auto) 0.2 Baso % (Auto) 0.2 Absolute Neuts (auto) 11.1 H Absolute Lymphs (auto) 0.36 L Nucleated RBC % 0 Differential Comment SEE COMMENT Platelet Estimate ADEQUATE RBC Morphology N CHROM Anisocytosis RARE PT 12.8 INR 1.0 APTT 28.9 Sodium 140 Potassium 3.8 Chloride 105 Carbon Dioxide 28.0 Anion Gap 7 BUN 21 H Creatinine 1.17 H Estim Creat Clear Calc 28.94 Est GFR (MDRD) Af Amer 57 L Est GFR (MDRD) Non-Af 47 L BUN/Creatinine Ratio 17.9 Glucose 134 H Lactic Acid Calcium 9.6 Total Bilirubin 0.30 AST 37 ALT 33 Alkaline Phosphatase 82 Troponin I High Sens 32 Total Protein 7.8 Albumin 3.4 Globulin 4.4 H Albumin/Globulin Ratio 0.8 L Urine Color Urine Clarity Urine pH Ur Specific [place] Urine Protein Urine Glucose (UA) Urine Ketones Urine Occult Blood Urine Nitrite Urine Bilirubin Urine Urobilinogen Ur Leukocyte Esterase Urine RBC Urine WBC Ur Squamous Epith Cells Urine Bacteria Urine Mucus 03/14/21 03/14/21 19:25 19:42 WBC RBC Hgb Hct MCV MCH MCHC RDW Std Deviation RDW Coeff of [place] Plt Count MPV Immature Gran % (Auto) Neut % (Auto) Lymph % (Auto) [place] % (Auto) Eos % (Auto) Baso % (Auto) Absolute Neuts (auto) Absolute Lymphs (auto) Nucleated RBC % Differential Comment Platelet Estimate RBC Morphology Anisocytosis PT INR APTT Sodium Potassium Chloride Carbon Dioxide Anion Gap BUN Creatinine Estim Creat Clear Calc Est GFR (MDRD) Af Amer Est GFR (MDRD) Non-Af BUN/Creatinine Ratio Glucose Lactic Acid 1.2 Calcium Total Bilirubin AST ALT Alkaline Phosphatase Troponin I High Sens Total Protein Albumin Globulin Albumin/Globulin Ratio Urine Color Yellow Urine Clarity Clear Urine pH 8.0 Ur Specific [place] 1.015 Urine Protein Negative Urine Glucose (UA) Normal Urine Ketones Negative Urine Occult Blood 250 H Urine Nitrite Negative Urine Bilirubin Negative Urine Urobilinogen Normal Ur Leukocyte Esterase Negative Urine RBC 0 SEEN Urine WBC 0 SEEN Ur Squamous Epith Cells 0 SEEN Urine Bacteria 0 SEEN Urine Mucus 0 SEEN Radiography Diagnostic Testing: Clinical Impression(s) from Imaging Studies Chest X-Ray 03/14/21 20:10 IMPRESSION: There are no acute findings. Electronically Signed: Burak Stone MD at 20:52 EST , Service support , EKG Initial EKG: Attestation: I personally reviewed and interpreted this EKG as follows: Comments: Normal sinus rhythm with a right bundle branch block and a ventricular rate of 94 bpm Discharge Plan Triage Chief Complaint: Weakness ED Provider: Jacob Caro Dx/Rx/DC Orders Clinical Impression: Acute febrile illness, Acute confusion Instructions: ED FUO Adult Prescriptions: No Action magnesium 30 mg tablet 1,000 mg PO DAILY RF: 0 multivit with min-folic acid 200 MCG tablet,chewable 200 mg PO DAILY RF: 0 alendronate 70 mg/75 mL Solution 70 mg PO QWEEK RF: 0 levothyroxine 25 mcg tablet 25 mcg PO DAILY Qty: 1 RF: 0 Primary Care Provider: Ashley Howard Referrals: Ashley Howard MD [Primary Care Provider] - 3-5 Days if not improving Activity Restrictions/Additional Instructions: Please understand that you will most likely develop a fever again. Please treat appropriately with Tylenol/Motrin. If you are worsening or developing new symptoms please return to the emergency department Disposition Disposition: Home, Self Care
[2021-03-14 19:52] VITALS: PULSE 95; TEMP 39.6
[2021-03-14 19:59] LABS: Absolute Lymphocyte Count 0.36 X10^3/uL (0.83-4.51); Absolute Neutrophil Count 11.1 X10^3/uL (2.0-7.7); Basophil# 0.02 X10^3/uL; Basophil% 0.2 % (0-1); Eosinophil# 0.02 X10^3/uL; Eosinophils% 0.2 % (0-5); Hematocrit 40.3 % (37-47); Hemoglobin 12.9 g/dL (12.0-15.0); Lymphocyte # 0.36 X10^3/ul (0.83-4.51); Mean Corpuscular Hgb 27.6 pg (27.0-32.0); Mean Corpuscular Volume 86.1 fL (81-99); Mean Platelet Vol. 12.1 fl (6.2-12.0); Monocyte# 0.56 X10^3/uL; Monocyte% 4.6 % (0-10); NRBC Flagged by Analyzer 0 % (0-5); Neutrophil # 11.05 X10^3/uL (2.7-7.7); Neutrophil % 90.9 % (47-70); POSITIVE DIFFERENTIAL YES; Platelet Count 191 K/mm3 (150-450); RBC Distribution Width CV 14.6 % (11.6-14.6); RBC Distribution Width SD 45.5 fl (35.1-43.9); Red Blood Count 4.68 M/mm3 (4.2-5.4); White Blood Count 12.1 K/mm3 (4.4-11.0)
[2021-03-14 20:01] LABS: Bacteria 0 SEEN /hpf (None Seen); Mucous, Urine 0 SEEN /hpf (<or=2+); Red Blood Cells-Urine 0 SEEN /hpf (0-5); Squamous Epithelial Cells - UA 0 SEEN /hpf (5-10); White Blood Cells 0 SEEN /hpf (0-5)
[2021-03-14] MEDS: Acetaminophen 500 MG Tablet 1000 MG PO (20:04)
[2021-03-14 20:07] LABS: Partial Thromboplast Time 28.9 Seconds (24.1-36.2); Prothrombin Time (Protime)PT. 12.8 SECONDS (11.7-14.9)
--- NOTE | 2021-03-14 20:10 | RAD_ITS ---
STUDY: XR Chest 1 View 03/14/2021 8:03 PM REASON FOR EXAM: Female, 80 years old. CHEST PAIN fever COMPARISON: 08/15/2019 TECHNIQUE: XR Chest 1 View FINDINGS: There is no demonstrated pleural abnormality. Enlarged heart size. Normal mediastinum. Normal cely. Prominent appearing increased interstitial lung markings. Normal visualized pulmonary arteries. There is atherosclerotic calcification of the aortic arch with tortuosity. There are diffuse degenerative changes of the visualized thoracic spine. There is degenerative osteoarthritis of the bilateral shoulders. There is no demonstrated abnormality of the visualized soft tissue structures of the upper abdomen. RAD/Chest 1 View (Portable) IMPRESSION: There are no acute findings. Electronically Signed: Burak Stone MD at 20:52 EST , Service support ,
[2021-03-14 20:16] LABS: Color, Urine Yellow (Yellow); Glucose, Dipstick Normal (Normal); Ketone-Dipstick Negative (Negative); Leukocyte Esterase-Dipstick Negative /ul (Negative); Nitrite-Dipstick Negative (Negative); Occult Blood-Urine 250 /ul (Negative); Protein-Dipstick Negative (Negative); Specific Gravity, Urine 1.015 (1.002-1.030); Urine Bilirubin Dipstick Negative (Negative); Urine Clarity Clear (Clear); Urine Urobilinogen Normal (Normal)
[2021-03-14 20:19] LABS: Differential Indicated SCAN CRITERIA MET
[2021-03-14 20:20] LABS: Anisocytosis RARE; Platelet Estimate ADEQUATE (ADEQ); Red Cell Morphology N CHROM NORMAL (NORM C&C)
[2021-03-14 20:37] LABS: ALB/GLOB Ratio 0.8 RATIO (0.9-2.4); AST(SGOT) 37 U/L (15-37); Alanine Aminotransfer ALT/SGPT 33 U/L (13-56); Albumin, Serum 3.4 g/dL (3.2-5.0); Alkaline Phosphatase 82 U/L (45-117); Anion Gap 7 (5-15); BUN 21 mg/dL (7-18); BUN/Creat Ratio 17.9 RATIO (10-20); Calcium,Total 9.6 mg/dL (8.5-10.1); Chloride 105 mmol/L (98-107); Creatinine, Serum 1.17 mg/dL (0.55-1.02); EST Glomerular Filtration Rate 47 mL/min (>60); Est Glom Filt Rate - Afr Amer 57 mL/min (>60); Estimated Creatinine Clearance 28.94 ml/min; Globulin 4.4 g/dL (2.2-4.2); Glucose 134 mg/dL (74-106); Potassium 3.8 mmol/L (3.5-5.1); Protein, Total 7.8 g/dL (6.4-8.2); Sodium Level 140 mmol/L (136-145); Troponin-I HS 32 pg/mL (3.0-54.0)
[2021-03-14 20:45] LABS: Lactic Acid 1.2 mmol/L (0.4-1.9)
[2021-03-14 21:09] VITALS: BP 120/56; PULSE 86; RESP 14; TEMP 37.1; O2SAT 94
--- NOTE | 2021-03-14 22:23 | ED.RN ---
AMBULATED PT IN ROOM. NO C/O'S OF DIZZINESS. STEADY.
[2021-03-14 22:55] VITALS: BP 129/59; PULSE 82; RESP 18; O2SAT 95
== END 2021-03-14 22:56 | disposition home or self-care (01) ==
PROVIDERS: Emergency Provider Emergency Medicine; PCP Internal Medicine
DX: R50.9 Fever, unspecified (principal); R41.0 Disorientation, unspecified; M81.0 Age-related osteoporosis without current pathological fracture; E21.3 Hyperparathyroidism, unspecified; Z79.899 Other long term (current) drug therapy
CPT/HCPCS: 71045; 80053; 81001; 83605; 84484; 85025; 85610; 85730; 87040; 87086; 87426; 87804; 93005; 99285; J7030; A4216

== ENCOUNTER 2021-05-18 08:29 | Outpatient (CLI) | payer MEDICARE, SELFPAY ==
--- NOTE | 2021-05-18 08:33 | BI_ITS ---
MAMMOGRAPHY - BILATERAL SCREENING REASON FOR EXAM: Female, 81 years old. Routine annual screening examination. PERTINENT HISTORY: Non-contributory. TECHNIQUE: Digital bilateral breast yariel (3D mammographic acquisition) in the CC and MLO projections. 2-D mediolateral oblique (MLO) and craniocaudad (CC) views of both breasts were obtained. CAD: Full Field Digital Mammography with Computer Added Detection was performed. COMPARISON: Comparison is made with prior examination dated 12/08/2016. FINDINGS: Breast Composition: There are scattered areas of fibroglandular density. There are no dominant masses or suspicious calcifications. No other significant abnormalities are identified. There has been no significant change since the prior study. BI/SCRN MAMM (CAD)W/YARIEL BILAT IMPRESSION: Stable bilateral screening mammogram. Yearly follow-up mammogram recommended. (A) ASSESSMENT CATEGORY: BIRADS Category 1: Negative. A letter regarding these results will be sent to the patient by the facility within 30 days. Approximately 10% of breast cancers are not detected by mammography. A normal mammogram should not delay biopsy of a clinically suspicious abnormality. [id number] Electronically Signed: James Bell MD at 9:31 EST ,
== END 2021-05-18 23:59 | disposition home or self-care (01) ==
PROVIDERS: PCP Internal Medicine; Referring Provider Internal Medicine; Visit Provider Internal Medicine
DX: Z12.31 Encounter for screening mammogram for malignant neoplasm of breast (principal)
CPT/HCPCS: 77063; 77067

== ENCOUNTER 2021-06-20 16:21 | Emergency (ER) | payer MEDICARE, SELFPAY ==
[2021-06-20 16:23] VITALS: BP 190/72; PULSE 79; RESP 16; TEMP 36.3; O2SAT 100; BMI 22.6
[2021-06-20 16:27] VITALS: BP 190/72; PULSE 75; RESP 16; TEMP 36.3; O2SAT 100
--- NOTE | 2021-06-20 17:15 | EDS_ITS ---
HPI HPI - Fall History of Present Illness Chief Complaint: Fall Informant: patient and EMS Occured/Mechanism Occurred: Today Mechanism/Context: Yes same level fall and Yes trip Usually ambulates: Without assistance Pain/Injury Pain Location: head and neck (right posterior and shoulder blade area) Quality of Pain: Aching (and sore) Current Severity: Mild Maximum Severity: Moderate Worsened by: moving Relieved by: remaining still Associated Symptoms Associated Symptoms: Negative for Parasthesias, Weakness and Loss of consciousness Narrative Narrative: Patient states she was in her kitchen and she tripped over her own feet. She thinks maybe she hit her head on a nearby cabinet, and she also fell to the floor. No loss of consciousness, she has a mild headache and pain in the right side of her posterior neck and into the shoulder blade area. She denies any pain in her right shoulder or arm except for an abrasion she has in her elbow. She also noticed after fall before the paramedics got there that she has had some tingling in her left index and thumb. She denies any pain throughout the left upper extremity or other injuries. No changes in her vision, no focal neurologic symptoms, she had no prodromal symptoms prior to the fall. She takes no anticoagulants or antiplatelets. When she was helped to her feet, she was off balance and did not feel stable. [facility] Medical History Allergies Arthritis Hearing disorder History of back problems HTN (hypertension) Hypercalcemia Hyperparathyroidism Osteoporosis Home Medications magnesium 30 mg tablet 1,000 mg PO DAILY tab 12/23/19 [History Last Taken Unknown] levothyroxine 25 mcg tablet 25 mcg PO DAILY #1 tab 05/18/20 [Rx Last Taken Unknown] alendronate 70 mg PO QWEEK 03/14/21 [History Last Taken Unknown] Allergy/AdvReac Type Severity Reaction Status Date / Time amoxicillin Allergy Unknown Verified 03/14/21 19:23 Penicillins [PCN] Allergy Unknown Verified 03/14/21 19:23 Family History Other Asthma Social History Smoking Status: Never smoker alcohol intake: never substance use type: does not use ROS ROS ED Constitutional Constitutional ED: Denies chills or fever(s) Eyes Eyes: Denies change in vision or diplopia ENT ENT ED: Denies ear pain, epistaxis, facial pain or rhinorrhea Cardiovascular Cardiovascular: Denies chest pain or palpitations Respiratory/Chest Respiratory/Chest: Denies cough or dyspnea Gastrointestinal Gastrointestinal: Denies abdominal pain, diarrhea, melena, nausea or vomiting Genitourinary Genitourinary ED: Denies dysuria or hematuria Musculoskeletal Musculoskeletal: Reports as per HPI, back pain and neck pain; Denies extremity pain Integumentary Denies abscess, Abrasions, laceration or rash Neurologic Neurologic: Denies confusion, headache(s), paresthesias or weakness EXAM Physical Exam Const Vital Signs: 06/20/21 16:23 06/20/21 16:27 06/20/21 16:28 Temperature 97.3 F L 97.3 F L Temperature Source Temporal Temporal Pulse Rate 79 75 Respiratory Rate 16 16 Respiratory Effort Normal Respiratory Depth Normal Respiratory Pattern Normal Blood Pressure 190/72 H 190/72 H Blood Pressure Mean 111 111 Pulse Ox 100 100 Oxygen Delivery Method Room Air Room Air Room Air 06/20/21 19:17 Temperature Temperature Source Pulse Rate 88 Respiratory Rate 16 Respiratory Effort Respiratory Depth Respiratory Pattern Blood Pressure 142/74 H Blood Pressure Mean 96 Pulse Ox 98 Oxygen Delivery Method Room Air Positive well nourished and well developed General Appearance ED: well developed and NAD HEENT Reports TM's clear and nasal mucous membranes and turbinates normal HEENT Narrative: Mild tenderness right temporoparietal scalp, no crepitance, depression, obvious signs of trauma, hematoma. Face and Sinus: Negative for facial tenderness Tympanic Membrane ED: Yes TM's clear Eyes PERRL and EOMs intact bilaterally Visual Acuity: other Other Details: no entrapment or pain with extraocular movements Neck full ROM and supple General: Negative for tenderness Chest Wall inspection of chest normal and palpation of chest normal Chest: symmetrical chest wall rise; Negative for crepitus or tenderness Resp normal respiratory effort and clear to auscultation bilaterally Percussion: other equal BS bilat Cardio no murmurs Rate: regular rate Rhythm: regular rhythm GI normal to inspection, nondistended, normoactive bowel sounds, soft to palpation and non-tender Back/Spine normal ROM Cervical Spine: Negative for cervical spine tenderness and paracervical muscle tenderness Paracervical Muscle Tenderness Details: right (Throughout cervical portion of trapezius, also including other dorsal portions of trapezius into the rhomboids area but no cervical midline or thoracic midline tenderness. No bony clavicular or scapular tenderness.) Thoracic Spine / Upper Back: Negative for thoracic spinal tenderness Lumbar Spine / Lower Back: Negative for lumbar spinal tenderness Extremity normal to inspection and full ROM Extremity Narrative: No tenderness throughout the right upper extremity including the shoulder and acromioclavicular joint. Full range of motion i ncluding supination pronation, she can raise her arm up over her head and abduct over 90 degrees without any difficulty. She has more pain when she turns her head, and her periscapular area and neck/trapezius. No deformities. Negative Tinel's left carpal tunnel. Full range of motion throughout all joints including the legs and hips. General Extremety ED: Negative for tenderness Neuro oriented x3, CN's II-XII intact bilaterally, moves all extremities, no focal motor deficits and no sensory deficits noted [place] Coma Scale: document GCS findings Spontaneous Obeys Commands Oriented 15 Sensorium / Orientation: awake and alert Psych mental status grossly normal and thought process normal Skin no wounds Lesions: no lesions Rashes: no rashes MDM MDM MDM Narrative Medical decision making narrative: Patient underwent CT of the head which was unremarkable, and because she had the tingling in her left index finger and thumb which was unexplained, although she does not have any bony neck tenderness, CT of the neck. The cervical spine shows fractures involving levels C6 and C7 which also include articular pillars, lamina, and part of the C7 vertebral body. She was placed in a collar, her neurologic exam is unchanged, she can move everything well and they prefer to be transferred to [facility]. I discussed with Dr. Cuenca they are in the emergency department who accepts the patient in transfer there for trauma reasons. Radiography Diagnostic Testing: Clinical Impression(s) from Imaging Studies Brain CT 06/20/21 17:35 IMPRESSION: Chronic involutional and white matter changes. No acute intracranial process. Individualized dose optimization techniques were used for this CT. at 1915 Reported and signed by: Rosalio Humphrey MD Electronically Signed: Rosalio Humphrey MD at 19:14 EDT Reading Location ID and State: Critical access hospital / ID Tel , Service support , Cervical Spine CT 06/20/21 17:35 IMPRESSION: Acute comminuted fracture left C6-7 articular pillars, left C6 lamina, left anterior tubercle C7 vertebral body. Degenerative changes. Individualized dose optimization techniques were used for this CT. at 1852 Reported and signed by: Rosalio Humphrey MD Electronically Signed: Rosalio Humphrey MD at 18:51 EDT Reading Location ID and State: Critical access hospital / ID Tel , Service support , ADDENDUM: 06/20/21 1915 IMPRESSION: Acute comminuted fracture left C6-7 articular pillars, left C6 lamina, left anterior tubercle C7 vertebral body. Degenerative changes. Individualized dose optimization techniques were used for this CT. at 1852 Reported and signed by: Rosalio Humphrey MD N.B. : The above Results were Read Back by Rosalio Humphrey MD to Dereck Warner MD, and understanding confirmed on 06/20/2021 19:08:12 (ET). Electronically Signed: Rosalio Humphrey MD at 18:51 EDT Reading Location ID and State: [facility] / ID Tel , Service support , Discharge Plan Triage Chief Complaint: Fall ED Provider: Dereck Warner Dx/Rx/DC Orders Clinical Impression: C6 cervical fracture, C7 cervical fracture, Closed head injury without loss of consciousness, Fall from slip, trip, or stumble Prescriptions: No Action magnesium 30 mg tablet 1,000 mg PO DAILY RF: 0 alendronate 70 mg/75 mL Solution 70 mg PO QWEEK RF: 0 levothyroxine 25 mcg tablet 25 mcg PO DAILY Qty: 1 RF: 0 Primary Care Provider: Ashley Howard Referrals: Ashley Howard MD [Primary Care Provider] - Disposition Disposition: Acute Care Hospital Discharge Location: [facility]
--- NOTE | 2021-06-20 17:35 | CT_ITS ---
We are attempting to reach an attending provider to discuss findings. An addendum with communication details will be sent when the communication is complete. HISTORY: trauma EXAMINATION: CT Spine Cervical W/O Contrast Injection TECHNIQUE: Helically acquired images were obtained of the cervical spine. 2D reformatted images were reviewed. A radiation dose optimization technique was used for this scan. IV Contrast dosage and agent: None. COMPARISON: None FINDINGS: VERTEBRAE: Acute comminuted fracture of the left C6-7 articular pillars, left C6 lamina and the anterior tubercle of the C7 vertebral body, no significant displacement of fracture fragments. No discrete lytic or blastic abnormality observed. Normal alignment. Normal craniocervical junction and cervicothoracic junction. DISCS and SPINAL CANAL: Degenerative discogenic changes are noted. No critical stenosis. NECK SOFT TISSUES: No prevertebral soft tissue swelling. LUNG APICES: Clear. CT/Spine Cervical without Contras IMPRESSION: Acute comminuted fracture left C6-7 articular pillars, left C6 lamina, left anterior tubercle C7 vertebral body. Degenerative changes. Individualized dose optimization techniques were used for this CT. at 1852 Reported and signed by: Rosalio Humphrey MD Electronically Signed: Rosalio Humphrey MD at 18:51 EDT Reading Location ID and State: [address] [place] [address] Tel , Service support ,
--- NOTE | 2021-06-20 17:35 | CT_ITS ---
HISTORY: trauma TECHNIQUE: Multiple axial images were obtained of the brain without intravenous contrast. A radiation dose optimization technique was used for this scan. IV Contrast dosage and agent: None. COMPARISON: 08/15/19 FINDINGS: # of images incl. paperwork: [id number] PARANASAL SINUSES AND MASTOID AIR CELLS: Clear. INTRACRANIAL HEMORRHAGE: None. BRAIN PARENCHYMA: No CT evidence of acute territorial infarction. Small focus of encephalomalacia in the high left parietal vertex at the location of the parenchymal hemorrhage on the prior study. No intracranial masses. Posterior fossa structures are unremarkable. There is hypoattenuation of the periventricular white matter. Chronic involutional changes are noted. CSF SPACES: Appropriate for age. There is no hydrocephalus. MASS EFFECT: None. CALVARIUM: No acute fracture. CT/Brain/Head without Contrast IMPRESSION: Chronic involutional and white matter changes. No acute intracranial process. Individualized dose optimization techniques were used for this CT. at 1915 Reported and signed by: Rosalio Humphrey MD Electronically Signed: Rosalio Humphrey MD at 19:14 EDT ,
[2021-06-20 19:17] VITALS: BP 142/74; PULSE 88; RESP 16; O2SAT 98
== END 2021-06-20 20:37 | disposition short-term general hospital (02) ==
PROVIDERS: Emergency Provider Emergency Medicine; PCP Internal Medicine; Visit Provider Emergency Medicine
DX: M80.08XA Age-related osteoporosis with current pathological fracture, vertebra(e), initial encounter for fracture (principal); E21.3 Hyperparathyroidism, unspecified; S09.90XA Unspecified injury of head, initial encounter; W01.198A Fall on same level from slipping, tripping and stumbling with subsequent striking against other object, initial encounter; Y92.000 Kitchen of unspecified non-institutional (private) residence as the place of occurrence of the external cause; Z79.899 Other long term (current) drug therapy
CPT/HCPCS: 70450; 72125; 99285; A4216

== ENCOUNTER → 2022-01-17 | Outpatient (CLI) | payer MEDICARE, SELFPAY ==
--- NOTE | 2022-01-17 14:36 | BD_ITS ---
STUDY: DUAL ENERGY X-RAY ABSORPTIOMETRY / DXA REASON FOR EXAM: Female, 81 years old. M810 TECHNIQUE: Bone Mineral Density (BMD) measurements of lumbar spine and bilateral hips were obtained. COMPARISON: Comparison is made with prior study dated 01/13/2020. FINDINGS: Lumbar Spine (L1-L4): g/cm2 (0.820) / T-score (-2.1) / Z-score (0.7) Findings are suggestive of osteopenia with a moderate fracture risk. Left Femur Total: g/cm2 (0.779) / T-score (-1.3) / Z-score (0.8) Left Femoral Neck: g/cm2 (0.787) / T-score (-0.6) / Z-score (1.8) Right Femur Total: g/cm2 (0.748) / T-score (-1.6) / Z-score (0.6) Right Femoral Neck: g/cm2 (0.891) / T-score (0.4) / Z-score (2.8) The T-Scores on the most recent prior examination were: Lumbar Spine (L1-L4): There has been improvement of bone density since the previous examination. Left Femur Total: which represents an improvement of 1.2%. Right Femur Total: which represents an improvement of 1.1%. BD/Dexa Bone Density Study IMPRESSION: The patient is considered osteopenic as outlined below according to World Delgado Organization (WHO) criteria with a moderate fracture risk. There has been improvement of bone density since the previous examination. Reference Information: The T-score is the number of standard deviations above or below the standard which is normal for young adults at their peak bone mineral density. The World Health Organization (WHO) interprets the T-scores as follows: Above -1 Normal bone density Between -1 and -2.5 Osteopenia Equal to / or below -2.5 Osteoporosis As a practical clinical guideline, osteopenia may be graded as follows: Mild -1 through -1.5 Moderate -1.6 through -2.0 Severe -2.1 through -2.4 The Z-score is the number of standard deviations above or below age-matched controls. A Z-score of less than -1.5 would be considered abnormal. References: 1. NIH Osteoporosis and Related Bone Diseases www osteo.org 2. International Society for Clinical Densitometry www iscd.org 3. National Osteoporosis Foundation www nof.org Electronically Signed: James Bell MD at 10:25 EDT ,
== END | disposition home or self-care (01) ==
PROVIDERS: PCP Internal Medicine; Visit Provider Internal Medicine
DX: M81.0 Age-related osteoporosis without current pathological fracture (principal)
CPT/HCPCS: 77080

== ENCOUNTER → 2024-06-17 | Outpatient (CLI) | payer MEDICARE, SELFPAY ==
--- NOTE | 2024-06-17 10:14 | BD_ITS ---
PROCEDURE: DEXA BONE DENSITY STUDY REASON FOR EXAM: F, age 84 y/o . Postmenopausal. TECHNIQUE: DEXA scan of the lumbar spine and both hips. COMPARISON: Comparison is made with prior study dated January 17, 2022. FINDINGS: Lumbar Spine (L1-L4): g/cm2 (0.826)/T-score (-2.0)/Z-score (0.8) findings are suggestive of osteopenia with a moderate fracture risk. Left Femur Total: g/cm2 (0.810)/T-score (-1.1)/Z-score (1.2) Left Femoral Neck: g/cm2 (0.844)/T-score (0.0)/Z-score (2.4) Right Femur Total: g/cm2 (0.781)/T-score (-1.3)/Z-score (1.0) Right Femoral Neck: g/cm2 (0.814)/T-score (-0.3)/Z-score (2.2) The T-Scores on the most recent prior examination were: Lumbar Spine (L1-L4): There has been improvement of bone density since the previous examination. Left Femur Total: Improvement of 3.9%. Right Femur Total: Improvement of 4.4%. BD/Dexa Bone Density Study IMPRESSION: The patient is considered osteopenic as outlined below according to World Delgado Organization (WHO) criteria with a moderate fracture risk. There has been improvement of bone density since the previous e xamination. Reading Location: [place] [address]
== END | disposition home or self-care (01) ==
LOC: OPBD 10:09
PROVIDERS: PCP Internal Medicine; Referring Provider Internal Medicine; Visit Provider Internal Medicine
DX: M81.0 Age-related osteoporosis without current pathological fracture (principal)
CPT/HCPCS: 77080

== ENCOUNTER 2025-01-24 09:10 | Inpatient (IN) | payer MEDICARE, SELFPAY ==
[2025-01-24 09:12] VITALS: BP 130/76; PULSE 104; RESP 14; TEMP 36.9; O2SAT 95; BMI 20.5
[2025-01-24 10:08] LABS: Hematocrit 36.3 % (37-47); Hemoglobin 12.1 g/dL (12.0-15.0); Immature Granulocytes Count 0.060 X10^3/uL (0.0-0.0); Mean Corp Hgb Conc 33.3 g/dL (32-36); Mean Corpuscular Volume 86.0 fL (81-99); Mean Platelet Vol. 11.5 fl (6.2-12.0); NRBC Flagged by Analyzer 0 % (0-5); POSITIVE DIFFERENTIAL YES; Platelet Count 180 K/mm3 (150-450); RBC Distribution Width CV 14.4 % (11.6-14.6); RBC Distribution Width SD 45.1 fl (35.1-43.9); Red Blood Count 4.22 M/mm3 (4.2-5.4); White Blood Count 14.4 K/mm3 (4.4-11.0)
[2025-01-24 10:09] LABS: Differential Indicated SCAN CRITERIA MET
[2025-01-24 10:41] LABS: Anion Gap 13 (5-15); BUN 14 mg/dL (4-19); BUN/Creat Ratio 18.1 RATIO (10-20); CRP 86.90 mg/L (0.0-3.0); Calcium,Total 9.1 mg/dL (7.6-11.0); Carbon Dioxide 21.9 mmol/L (21.0-32.0); Chloride 103 mmol/L (98-108); Estimated Creatinine Clearance 46.26 ml/min (50-250); Glucose 139 mg/dL (70-99); Potassium 4.0 mmol/L (3.3-5.1); Uric Acid 4.2 mg/dL (2.6-6.0)
[2025-01-24 10:45] LABS: Differential Comment SCANNED
[2025-01-24] MEDS: Lidocaine 1% (20 ml mdv) 20 ML Vial 5 ML INFILT (11:32)
[2025-01-24 12:29] LABS: Mucous, Urine 0 SEEN /hpf (<or=2+)
[2025-01-24 12:40] LABS: Color, Urine Yellow (Yellow); Glucose, Dipstick Normal (Normal); Leukocyte Esterase-Dipstick Negative /ul (Negative); Nitrite-Dipstick Negative (Negative); Occult Blood-Urine 250 /ul (Negative); Protein-Dipstick 30 mg/dl (Negative); Specific Gravity, Urine 1.025 (1.002-1.030); Urine Bilirubin Dipstick Negative (Negative)
[2025-01-24 12:52] LABS: Ketone-Dipstick 150 mg/dl (Negative)
[2025-01-24 12:53] LABS: Red Blood Cells-Urine 5-10 SEEN /hpf (0-5); Squamous Epithelial Cells - UA 0-5 SEEN /hpf (5-10)
[2025-01-24 13:12] VITALS: BP 153/80; PULSE 90; RESP 18; O2SAT 95
[2025-01-24 13:45] LABS: AUTO B FLUID DILUENT BKGD CT WBC <0.1 RBC <0.01 (W<.1,R<.01); Color / Synovial Fluid Red (Pale Yellow); Source- Body Fluid SYNOVIAL
[2025-01-24 13:46] LABS: Appearance /Synovial Fluid Cloudy (CLEAR); RBC /Synovial Fluid 0.657 10^6/uL (0); Synovial Fld Polynuclear WBC % 85.4 %; Total Cell Count Synovial Fld 43.0700 10^3/uL (0.000-0.000); WBC / Synovial Fluid 42.9700 10^3/uL (0.000-0.002)
[2025-01-24 13:47] LABS: Synovial Fld Mononuclear WBC # 6.092 10^3/ul; Synovial Fld Mononuclear WBC % 14.6 %; Synovial Fld Polynuclear WBC # 35.746 10^3/uL
[2025-01-24 13:48] LABS: Source / Synovial Fluid RIGHT WRIST
[2025-01-24 14:25] LABS: Monocyte /Synovial Fluid 9 %
[2025-01-24 14:31] LABS: Body Fluid QC Type(s) BF1Q,BF2Q
[2025-01-24] MEDS: Vancomycin HCl 750 MG in 0.9% Normal Saline (250mL Bag) 250 ML 250 MG IV (15:27)
[2025-01-24 16:15] VITALS: BP 141/77; PULSE 98; RESP 18; TEMP 36.9; O2SAT 99
[2025-01-24 16:17] VITALS: BP 141/77; PULSE 95; RESP 18; TEMP 36.9; O2SAT 99
[2025-01-24 17:11] VITALS: BMI 20.5
[2025-01-24 17:21] VITALS: BP 159/79; PULSE 100; RESP 16; TEMP 36.8; O2SAT 95
[2025-01-24] MEDS: 0.9% Normal Saline (250mL Bag) 250 ML 15 ML IV (18:14)
[2025-01-24] MEDS: 0.9% Saline Lock 10 ML Syringe IV (18:14)
[2025-01-24 19:59] VITALS: BP 124/61; PULSE 93; RESP 16; TEMP 36.7; O2SAT 95
[2025-01-24] MEDS: Heparin Injection (Vial) 5,000 UNIT/ML VIAL 5000 UNIT SC (21:06)
[2025-01-25 02:05] VITALS: BP 116/69; PULSE 86; RESP 16; TEMP 36.9; O2SAT 96
[2025-01-25] MEDS: Vancomycin HCl 500 MG in 0.9% Normal Saline (100mL Bag) 100 ML 100 MG IV ×2 (03:31→16:14)
[2025-01-25] MEDS: 0.9% Saline Lock 10 ML Syringe IV ×2 (03:31→20:00)
[2025-01-25 04:40] LABS: Hematocrit 34.3 % (37-47); Hemoglobin 11.2 g/dL (12.0-15.0); Immature Granulocytes Count 0.040 X10^3/uL (0.0-0.0); Mean Corp Hgb Conc 32.7 g/dL (32-36); Mean Corpuscular Volume 86.2 fL (81-99); Mean Platelet Vol. 11.9 fl (6.2-12.0); NRBC Flagged by Analyzer 0 % (0-5); POSITIVE DIFFERENTIAL YES; Platelet Count 173 K/mm3 (150-450); RBC Distribution Width CV 14.5 % (11.6-14.6); RBC Distribution Width SD 45.6 fl (35.1-43.9); Red Blood Count 3.98 M/mm3 (4.2-5.4); White Blood Count 12.2 K/mm3 (4.4-11.0)
[2025-01-25 05:04] LABS: Differential Indicated SCAN CRITERIA MET
[2025-01-25 05:15] LABS: Anion Gap 12 (5-15); BUN 14 mg/dL (4-19); BUN/Creat Ratio 21.8 RATIO (10-20); Calcium,Total 8.7 mg/dL (7.6-11.0); Carbon Dioxide 21.3 mmol/L (21.0-32.0); Chloride 105 mmol/L (98-108); Estimated Creatinine Clearance 46.26 ml/min (50-250); Glucose 105 mg/dL (70-99); Potassium 3.6 mmol/L (3.3-5.1)
[2025-01-25 06:13] LABS: Differential Comment SCANNED
[2025-01-25 08:36] VITALS: BP 127/66; PULSE 99; RESP 16; TEMP 36.7; O2SAT 96
[2025-01-25] MEDS: Heparin Injection (Vial) 5,000 UNIT/ML VIAL 5000 UNIT SC ×2 (08:43→22:17)
[2025-01-25 14:22] VITALS: BP 128/65; PULSE 99; RESP 16; TEMP 36.9; O2SAT 98
[2025-01-25 19:44] VITALS: BP 122/85; PULSE 98; RESP 16; TEMP 37.1; O2SAT 96
[2025-01-26 01:51] VITALS: BP 125/87; PULSE 92; RESP 16; TEMP 37.1; O2SAT 96
[2025-01-26 03:16] LABS: Hematocrit 33.3 % (37-47); Hemoglobin 11.0 g/dL (12.0-15.0); Immature Granulocytes Count 0.030 X10^3/uL (0.0-0.0); Mean Corp Hgb Conc 33.0 g/dL (32-36); Mean Corpuscular Volume 86.5 fL (81-99); Mean Platelet Vol. 11.6 fl (6.2-12.0); NRBC Flagged by Analyzer 0 % (0-5); Platelet Count 185 K/mm3 (150-450); RBC Distribution Width CV 14.5 % (11.6-14.6); RBC Distribution Width SD 46.0 fl (35.1-43.9); Red Blood Count 3.85 M/mm3 (4.2-5.4); White Blood Count 10.4 K/mm3 (4.4-11.0)
[2025-01-26 03:45] LABS: Anion Gap 8 (5-15); BUN 16 mg/dL (4-19); BUN/Creat Ratio 25.3 RATIO (10-20); Calcium,Total 8.3 mg/dL (7.6-11.0); Carbon Dioxide 23.9 mmol/L (21.0-32.0); Chloride 106 mmol/L (98-108); Estimated Creatinine Clearance 46.26 ml/min (50-250); Glucose 102 mg/dL (70-99); Potassium 3.8 mmol/L (3.3-5.1)
[2025-01-26 03:47] LABS: Vancomycin, Trough Level 8.0 ug/mL (5.0-15.0)
[2025-01-26] MEDS: Vancomycin HCl 750 MG in 0.9% Normal Saline (250mL Bag) 250 ML 250 MG IV ×2 (04:27→16:23)
[2025-01-26 06:44] VITALS: BP 135/71; PULSE 90; RESP 16; TEMP 36.7; O2SAT 98
[2025-01-26 09:27] VITALS: BP 134/78; PULSE 99; RESP 16; TEMP 36.6; O2SAT 99
[2025-01-26] MEDS: 0.9% Saline Lock 10 ML Syringe IV ×3 (09:33→16:56)
[2025-01-26] MEDS: Heparin Injection (Vial) 5,000 UNIT/ML VIAL 5000 UNIT SC ×2 (09:33→20:40)
[2025-01-26 14:15] VITALS: BP 107/68; PULSE 99; RESP 16; TEMP 37.2; O2SAT 100
[2025-01-26 14:53] LABS: CRYSTALS, BODY FLUID CALCIUM PYROPHOS
[2025-01-26 20:21] VITALS: BP 133/68; PULSE 90; RESP 18; TEMP 37.4; O2SAT 98
[2025-01-27 02:45] VITALS: BP 129/67; PULSE 71; RESP 14; TEMP 36.6; O2SAT 96
[2025-01-27] MEDS: Vancomycin HCl 750 MG in 0.9% Normal Saline (250mL Bag) 250 ML 250 MG IV (04:05)
[2025-01-27 05:32] LABS: Hematocrit 33.8 % (37-47); Hemoglobin 11.1 g/dL (12.0-15.0); Immature Granulocytes Count 0.030 X10^3/uL (0.0-0.0); Mean Corp Hgb Conc 32.8 g/dL (32-36); Mean Corpuscular Volume 84.9 fL (81-99); Mean Platelet Vol. 11.2 fl (6.2-12.0); NRBC Flagged by Analyzer 0 % (0-5); Platelet Count 206 K/mm3 (150-450); RBC Distribution Width CV 14.6 % (11.6-14.6); RBC Distribution Width SD 45.2 fl (35.1-43.9); Red Blood Count 3.98 M/mm3 (4.2-5.4); White Blood Count 8.0 K/mm3 (4.4-11.0)
[2025-01-27] MEDS: 0.9% Saline Lock 10 ML Syringe IV (05:56)
[2025-01-27 06:06] LABS: Anion Gap 10 (5-15); BUN 13 mg/dL (4-19); BUN/Creat Ratio 23.0 RATIO (10-20); Calcium,Total 8.7 mg/dL (7.6-11.0); Carbon Dioxide 22.9 mmol/L (21.0-32.0); Chloride 108 mmol/L (98-108); Estimated Creatinine Clearance 46.26 ml/min (50-250); Glucose 114 mg/dL (70-99); Potassium 3.4 mmol/L (3.3-5.1)
[2025-01-27 09:31] VITALS: BP 105/55; PULSE 87; RESP 16; TEMP 36.4; O2SAT 98
== END 2025-01-27 13:08 | disposition home or self-care (01) | DRG 554 ==
LOC: ED 15:16 → MS3 16:12
PROVIDERS: Admitting Provider Internal Medicine; Emergency Provider Emergency Medicine; PCP Internal Medicine
DX: M10.031 Idiopathic gout, right wrist (principal); E03.9 Hypothyroidism, unspecified; Z66 Do not resuscitate; F03.90 Unspecified dementia, unspecified severity, without behavioral disturbance, psychotic disturbance, mood disturbance, and anxiety; M71.22 Synovial cyst of popliteal space [Baker], left knee; Z79.890 Hormone replacement therapy
CPT/HCPCS: 36415; 70450; 73110; 80048; 80202; 81001; 83605; 84443; 84550; 85025; 85652; 86140; 87070; 87075; 87205; 87640; 89050; 89051; 89060; 93005; 97110; 97116; 97162; 97166; 97530; 97535; 99284; A4216

== ENCOUNTER 2025-03-11 07:00 | Emergency (ER) | payer MEDICARE, SELFPAY ==
[2025-03-11 07:00] VITALS: BP 152/94; PULSE 110; RESP 18; TEMP 36.7; O2SAT 98; BMI 21.5
--- NOTE | 2025-03-11 07:06 | RAD_ITS ---
PROCEDURE: KNEE 4 OR MORE VIEWS 03/11/2025 REASON FOR EXAM: PAIN TECHNIQUE: Procedure Code: RADKN Modality: DX Procedure: KNEE 4 OR MORE VIEWS Laterality: Left. COMPARISON: None. FINDINGS: Lateral hemiarthroplasty of the left knee. Unremarkable metallic prosthesis. Mild osteopenia of the visualized bones. Degenerative joint disease. No fracture or dislocation is seen. No lytic or blastic bone lesion is noted. Mild suprapatellar knee joint effusion. Periarticular soft tissue edema and swelling. RAD/Knee 4 or More Views IMPRESSION: Mild suprapatellar knee joint effusion. Periarticular soft tissue edema and swelling. Unremarkable metallic hardware of the left knee. Reading Location: [place]
--- NOTE | 2025-03-11 07:08 | EDS_ITS ---
HPI History of Present Illness Chief Complaint: Lower Extremity Injury Narrative Narrative: Patient is a 84-year-old female presenting to the emergency department for left knee pain. Patient has a past medical history of dementia, CKD stage II and osteopenia. Patient is alert and oriented x 2. She is unsure why she is here. She denies any pain at time of evaluation. Will obtain additional history from . [facility] Medical History Dementia without behavioral disturbance Hyperparathyroidism HTN (hypertension) Hypercalcemia Hearing disorder History of back problems Arthritis Allergies Osteoporosis Home Medications ?Medication ?Instructions ?Recorded ?Last Taken ?Type levothyroxine 25 mcg tablet 25 mcg PO DAILY #1 TAB 12/28 Unknown Rx alendronate 70 mg/75 mL oral 70 mg PO QWEEK 03/14/21 U nknown History solution escitalopram oxalate 10 mg tablet 10 mg PO DAILY DEPRE SSION 01/25/25 Unknown History rosuvastatin 10 mg tablet 10 mg PO QHS CHOLESTEROL Unknown History prednisone 20 mg tablet 40 mg (2 x 20 mg) PO DAILY # 10 tabs 01/27/25 Unknown Rx Allergy/AdvReac Type Severity Reaction Status Date / Time amoxicillin Allergy Unknown Verified 03/11/25 07:04 Penicillins (PCN) Allergy Unknown Verified 03/11/25 07:04 Family History Other Asthma Social History Smoking Status: Never smoker alcohol intake: never substance use type: does not use ROS ROS ED ROS Narrative see HPI EXAM Physical Exam Narrative Exam Narrative: Vital signs: Reviewed General: Alert and oriented x 2. No acute distress. Well-appearing, nontoxic HEENT: Head is normocephalic and atraumatic, sinuses nontender, pupils equal round and reactive. Nares are patent. Oropharynx and throat exams normal. Neck: Supple without lymphadenopathy nontender Cardiovascular: Regular rate and rhythm, no murmurs. No rubs or gallops. Normal S1 and S2 Respiratory: Clear to auscultation bilaterally. No wheezes, rales, rhonchi Abdominal: Soft and nontender. Normal bowel sounds. No guarding or rebound. Nonsurgical abdomen Extremities: There is mild swelling to the left medial knee. There is no erythema or warmth of the joint. Patient has normal active and passive range of motion of the left knee. There is no swelling or pain on palpation of the calf. No obvious deformities. No tenderness to palpation of the left hip or upper leg. DP and PT pulses intact. Sensation intact. No bruising. Normal sensation. Skin: No rash or redness. The rest of the physical exam is unremarkable Const Vital Signs: 03/11/25 07:00 03/11/25 08:37 03/11/25 09:00 Temperature 98.0 F 98.0 F Temperature Source Oral Pulse Rate 110 H 101 H 96 Respiratory Rate 18 16 16 Blood Pressure 152/94 H 139/82 H 139/82 H Blood Pressure Mean 113 101 101 Pulse Ox 98 98 98 Oxygen Delivery Method Room Air MDM MDM MDM Narrative Medical decision making narrative: Patient is an 84-year-old female presenting to the emergency department for left knee pain. Patient was seen and examined. Vitals are stable. Patient resting in bed comfortably in no acute distress. Patient is a poor historian, will obtain additional history from . On physical exam the left knee is mildly swollen compared to the right. There is no erythema or warmth of the joint. There is no decreased range of motion to s uspect septic joint. Will obtain x-ray imaging. arrived at bedside about 30 minutes after arrival. Additional history obtained from him. He states she started complaining of pain behind her left knee yesterday intermittently. Last night complained of pain shooting down into her foot. She was given Tylenol at around 2 AM last evening. He states she has had no falls or trauma to the knee. Denies fever or chills. Has had bilateral knee replacements years ago. He was concerned this morning because she would not get out of bed due to pain. He is concerned about a blood clot. X-ray was reviewed by myself, no fractures or dislocations. Radiology read with mild suprapatellar knee joint effusion. Periarticular soft tissue edema and swelling. Unremarkable metallic hardware of the left knee. DVT US is negative. Patient reevaluated and updated on the findings. Likely the patient strained/sprained her knee. Patient ambulated with walker without difficulty. She denied any pain in her knee when ambulating. states that she has been sitting a lot for the past 4 to 5 days and was asking about physical therapy. I recommended calling her primary care doctor for home physical therapy outpatient. I recommended RICE therapy for home which was extensively discussed with at bedside. Gave strict return precautions if shops any worsening pain, swelling, redness or warmth of her knee joint. Patient discharged from the Emergency Department. I do not feel that the patient's evaluation reveals any acute reason for admission at this time. I instructed them to either follow-up with their primary care physician or promptly return to the Emergency Department for reevaluation should symptoms worsen or new symptoms develop. I explained what symptoms would indicate the need to return to the emergency department. Shared decision making was used. The patient voiced understanding of the treatment plan and is agreeable with it. Clinical impression Left knee pain History & Record Review Discussion w/independent historian: Patient and Significant other Radiography X-Ray: Read by ED Physician and No Fracture Diagnostic Testing: Clinical Impression(s) from Imaging Studies Knee X-Ray 03/11/25 07:06 IMPRESSION: Mild suprapatellar knee joint effusion. Periarticular soft tissue edema and swelling. Unremarkable metallic hardware of the left knee. Reading Location: [place] [address] Discharge Plan Triage Chief Complaint: Lower Extremity Injury ED Provider: Annita Hatch Dx/Rx/DC Orders Clinical Impression: Knee pain, left Instructions: ED Knee Sprain, ED RICE Prescriptions: No Action alendronate 70 mg/75 mL Solution 70 mg PO QWEEK escitalopram oxalate 10 mg tablet 10 mg PO DAILY rosuvastatin 10 mg tablet 10 mg PO QHS prednisone 20 mg tablet 40 mg PO DAILY Qty: 10 0RF levothyroxine 25 mcg tablet 25 mcg PO DAILY Qty: 1 0RF Primary Care Provider: Ashley Howard Referrals: Ashley Howard MD [Primary Care Provider, Internal Medicine] - As soon as possible Activity Restrictions/Additional Instructions: Please follow up with your primary care doctor as soon as possible, you can discuss possible home physical therapy. Refer to the RICE therapy instructions I provided and discussed with you. Your evaluation in the Emergency Department did not reveal any acute reason for admission. However, I want to emphasize that you may be early in the course of a disease process or illness even if it is not present. For this reason you should follow-up within 24 hours for reevaluation with either your primary care physician or if necessary back here in the Emergency Department. You should return to the Emergency Department immediately if your symptoms worsen or new symptoms develop. Print Language: Kenyan Disposition Disposition: Home, Self Care
--- NOTE | 2025-03-11 07:33 | VDLE_ITS ---
Reason For Study Reason For Study: Pain RIGHT LEFT CFV is compressible, spontaneous, phasic, competent GSV is normal. and demonstrates normal augmentation. CFV is compressible, spontaneous, phasic, competent, Procedure and demonstrates normal augmentation. This is a venous duplex using B-mode, color flow and FV is compressible, spontaneous, phasic, competent spectral Doppler. and demonstrates normal augmentation. Exam performed portable in ED. POP V is compressible, spontaneous, phasic, competent A preliminary report was called and/or faxed to Annita and demonstrates normal augmentation. MD Mamie. T/P Trunk is compressible. PTV is compressible. LT PerV is compressible. VL/Venous Duplex US, Unilateral Interpretation Summary Deep veins of the left lower extremity are patent and compressible segmentally. There is no evidence of left lower extremity deep vein thrombosis. Valvular competence appears intact within the p roximal deep venous system on the left . The left great saphenous vein appears patent and compressible segmentally. The right common femoral vein is patent and compressible . Ordering Physician: Annita Hatch Referring Physician: Ashley Howard MD Performed By: Camila Franks RVT
--- OUTSIDE RECORDS SUMMARY | 2025-03-11 07:46 | XMS RPT_ITS | CCD ---
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 Ashley Roberson MD Primary Care Provider Dr. Ashley Roberson MD Attending Provider Dr. Ashley Roberson MD Referring Provider Brice Avila Admitting Unavailable Lico Chance Consulting Unavailable JosepheletskyBrice Attending Unavailable Ganta, Ashley Primary Care Unavailable Brice Avila Consulting Unavailable Mahin Brice Admitting Unavailable Jonah Mckoy Attending Unavailable Jimmy Chanceolas Consulting Unavailable Ganta, Ashley Primary Care Unavailable Josepheletsky, Brice Consulting Unavailable Oscar Saravia Consulting Unavailable Ganta, Ashley Primary Care Unavailable Ganta, Ashley Attending Unavailable Ganta, Ashley Referring Unavailable Jopperi, Jonah Attending Unavailable Rani Oscar Consulting Unavailable Kitappkeiry Jonah Consulting Unavailable GANTA, ASHLEY Attending Unavailable GANTA, ASHLEY Primary Care Unavailable GANTA, ASHLEY Attending Unavailable GANTA, ASHLEY Primary Care Unavailable LUANNE CRAIG Referring Unavailable GANTA, ASHLEY Primary Care Unavailable GANTA, ASHLEY Referring Unavailable GANTA, ASHLEY Primary Care Unavailable GANTA, ASHLEY Attending Unavailable GANTA, ASHLEY Primary Care Unavailable LYN MCKEON Attending Unavailable GANTA, ASHLEY Primary Care Unavailable MODLO, LYN BALLESTEROS Referring Unavailable GANTA, ASHLEY Primary Care Unavailable GANTA, ASHLEY Primary Care Unavailable GANTA, ASHLEY Attending Unavailable GANTA, ASHLEY Primary Care Unavailable GANTA, ASHLEY Attending Unavailable GANTA, ASHLEY Primary Care Unavailable GANTA, ASHLEY Attending Unavailable GANTA, ASHLEY Primary Care Unavailable MODLO, LYN LESLI Attending Unavailable GANTA, ASHLEY Primary Care Unavailable GANTA, ASHLEY Attending Unavailable GANTA, ASHLEY Primary Care Unavailable GANTA, ASHLEY Referring Unavailable GANTA, ASHLEY Primary Care Unavailable VAZQUEZ, LILIA Attending Unavailable GANTA, ASHLEY Primary Care Unavailable OLDER, KRISTIN Attending Unavailable VAZQUEZ, LILIA Referring Unavailable GANTA, ASHLEY Primary Care Unavailable Ganta , Dr. Ramirez Primary Care Physician [phone] Timmy AGUIRRE, Dr. Harden Emergency Department Phys ician Dr. Brice Avila DO Admitting Physician Dr. Brice Avila DO Nurse Practitioner Dr. Lico Chance DO Nurse Practitioner [phone] Dr. Jonah Mckoy DO Attending Physician Dr. Oscar Saravia MD Nurse Practitioner Dr. Brice Avila DO Attending Physician Dr. Alec Jack MD Attending Physician [phone] Dr. Brice Avila DO Referring Provider Dr. Jonah Mckoy DO Nurse Practitioner Allergies Allergy Classification Reported Allergen(s) Allergy Type Date of Onset Reaction(s) Facility (20 sources) Amoxicillin; Translations: [AMOXICILLIN] Drug Allergy 6 [facility] Work Phone: (20 sources) Penicillins; Translations: [PENICILLINS] Drug Allergy 9 [facility] (20 sources) fall allergy [Other] Propensity to adverse reactions 7 [facility] Work Phone: (20 sources) Seasonal allergy; Translations: [SEASONAL ALLERGIES] Allergy to substance 2 Itching [facility] (20 sources) oxyCODONE; Translations: [OXYCODONE] Drug Allergy 2 GI Upset [facility] (20 sources) Penicillins Drug Allergy 9 [facility] (3 sources) Penicillins Allergy to substance 1 Unknown [facility] (1 source) OTHER; Translations: [OTHER] Propensity to adverse reactions (disorder) 7 [facility] Other [facility] (17 sources) Penicillins Drug Allergy 9 [facility] (1 source) Amoxicillin Drug Allergy 5 [facility] Rep[facility] (1 source) Penicillins Drug allergy (disorder) 5 [facility] Repository Medications Current Medications Medication Drug Class(es) Dates Sig (Normalized) Sig (Original) alendronic acid 0.933 mg/ml oral solution (20 sources) Bisphosphonate Start: 03-14-2021 End: 10-18-2023 take 70 mg by mouth every week Comment on above: Take 75 mL by mouth one time a week. aspirin 81 mg chewable tablet (5 sources) Platelet Aggregation Inhibitor, Nonsteroidal Anti-inflammatory Drug Start: 06-23-2021 End: 09-21-2021 take 1 tablet by mouth once daily aspirin 81 mg chewable tablet Take 1 tablet by mouth once daily. 30 tablet 2 06/23/2021 09/21/2021 Suspended Comment on above: Take 1 tablet by the [facility] once daily. cholestyramine resin 4000 mg powder for oral suspension (20 sources) Bile Acid Sequestrant Start: 05-30-2024 End: 11-25-2024 take 1 dose by mouth three times daily at mealtime cholestyramine (QUESTRAN) 4 gram packet Take 1 packet by mouth three times a day with meals. 90 packet 2 11/25/2024 Active colestipol hydrochloride 1000 mg oral tablet (20 sources) Bile Acid Sequestrant Start: 04-28-2024 End: 05-13-2024 take 1 tablet by mouth twice daily colestipol (COLESTID) 1 gram tablet Indications: Diarrhea, unspecified type Take 1 tablet by mouth two times a day. 60 tablet 1 05/13/2024 Active Start: 04-25-2024 take 5 g by mouth once daily c olestipol (COLESTID) 5 gram packet Take 5 g by mouth once daily. 30 Packet 5 04/25/2024 Active 1 ml denosumab 60 mg/ml prefilled syringe (20 sources) RANK Ligand Inhibitor Start: 05-19-2024 End: 05-13-2025 60 mg, SUBCUTANEOUS, EVERY 6 MONTHS, 2 doses, First dose on 05/19/24 at 0000, Last dose on 11/15/24 at 0000, Allow To Come To Room Temperature Before Administration. REFRIGERATE Start: 06-21-2023 End: 05-13-2025 denosumab 60 mg injection (P ROLIA) Start: 06-21-2023 End: 12-24-2023 60 mg, SUBCUTANEOUS, EVERY 6 MONTHS, 2 doses, First dose on Heidi 06/21/23 at 0000, Last dose on 12/18/23 at 0000, Allow To Come To Room Temperature Before Administration. REFRIGERATE donepezil hydrochloride 10 mg oral tablet (20 sources) Start: 07-17-2024 End: 07-17-2025 take 1 tablet by mouth once daily after breakfast donepezil (ARICEPT) 10 mg tablet Take 1 tablet by mouth daily after breakfast. 90 tablet 3 07/17/2024 07/17/2025 Active Start: 07-16-2023 End: 06-06-2025 take 1 tablet by mouth once daily at breakfast donepezil (ARICEPT) 5 mg tablet Indications: Dementia without behavioral disturbance (HCC) Take 1 tablet by mouth daily with breakfast. 90 tablet 3 06/06/2024 07/17/2024 Discontinued Comment on above: Take 1 tablet by [facility] daily at bedtime. escitalopram 10 mg oral tablet (7 sources) Serotonin Reuptake Inhibitor Start: 01-25-2025 take 1 tablet by mouth once daily Start: 10-22-2024 take 1 tablet by [facility] th once daily at bedtime escitalopram oxalate (LEXAPRO) 10 mg tablet Take 1 tablet by mouth daily at bedtime. 30 tablet 3 10/22/2024 Active levothyroxine sodium 0.025 mg oral tablet (20 sources) l-Thyroxine Start: 05-18-2020 End: 10-07-2024 take 1 tablet by mouth once daily levothyroxine (SYNTHROID) 25 mcg tablet Indications: Hypothyroidism, acquired Take 1 tablet by mouth once daily. 90 tablet 3 10/07/2024 Active Comment on above: Take 1 tablet by garrison th once daily. Take on empty stomach. For thyroid. Take 1 tablet by garrison th once daily. Take 1 tablet by garrison th once daily. Except take 1.5 tablets on Sunday memantine hydrochloride 10 mg oral tablet (20 sources) A-rcubdl-D-aspart ate Receptor Antagonist Start: 09-11-2024 take 1 tablet by mouth twice daily memantine (NAMENDA) 10 mg tablet Indications: Dementia without behavioral disturbance (HCC) Take 1 tablet by mouth two times a day. 60 tablet 3 09/11/2024 Active Start: 12-28-2023 End: 03-09-2025 take 5 mL by mouth twice daily memantine (NAMENDA) 10 mg/5 mL oral liquid Indications: Dementia without behavioral disturbance, psychotic disturbance, mood disturbance, or anxiety, unspecified dementia severity, unspecified dementia type (HCC) 5ml po twice daily 900 mL 3 09/08/2024 10/31/2024 Discontinued Start: 09-10-2023 End: 12-28-2023 memantine (NAMENDA) 10 mg/5 mL oral liquid Indications: Dementia without behavioral disturbance, psychotic disturbance, mood disturbance, or anxiety, unspecified dementia severity, unspecified dementia type (HCC) Take 2.5ml daily x1 week, then increase to 2.5ml twice dailiy x1 week, then increase to 5ml in AM and 2.5ml in PM x1 week, then increase to 5ml twice daily and continue. 1080 mL 1 09/10/2023 12/28/2023 Discontinued Start: 09-10-2023 End: 09-10-2023 memantine (NAMENDA) 5 mg tab let Take 1 tablet in the AM for 1 week, then increase to 1 tablet BID for 1 week, then increase to 1 tablet in the AM and 2 tablets in the PM x1 week. After you complete this titration you will then transition to the 10mg tablets (separate Rx). 42 tablet 0 09/10/2023 09/10/2023 Discontinued predniSONE 20 mg oral tablet (1 source) Start: 01-27-2025 take 2 tablets by mouth once daily rosuvastatin calcium 10 mg oral tablet (20 sources) HMG-CoA Reductase Inhibitor Start: 01-25-2025 take 1 tablet by mouth at bedtime Start: 08-16-2022 End: 10-22-2024 take 1 tablet by mouth once daily at bedtime rosuvastatin (CRESTOR) 10 mg tablet Indications: Hyperlipidemia, unspecified hyperlipidemia type Take 1 tablet by mouth daily at bedtime. 90 tablet 3 10/07/2024 10/22/2024 Discontinued Comment on above: Take 1 tablet by [facility] th daily at bedtime. sulfamethoxazole 800 mg / trimethoprim 160 mg oral tablet (3 sources) Dihydrofolate Reductase Inhibitor Antibacterial, Sulfonamide Antimicrobial Start: 3 End: take 1 tablet by mouth twice daily sulfamethoxazo le-trimethopri m (BACTRIM DS) 800-160 mg per tablet Take 1 tablet by mouth twice daily for 7 days. 14 tablet 0 12/08/2022 12/15/2022 Active Start: 12-23-2021 End: 12-26-2021 take 1 tablet by mouth twice daily sulfamethoxazole-trimethoprim (BACTRIM D S) 800-160 mg per tablet Take 1 tablet by mouth twice daily for 3 days. 6 tablet 0 12/23/2021 12/26/2021 Active Comment on above: Take 1 tablet by garrison th twice daily for 3 days. Take 1 tablet by garrison th twice daily for 7 days. Completed/Discontinued Medications Medication Drug Class(es) Dates Sig (Normalized) Sig (Original) acetaminophen 325 mg oral tablet (20 sources) Start: 07-18-2021 End: 09-29-2024 take 2 tablets by mouth every four hours as needed acetaminophen (TYLENOL) 325 mg tablet Take 2 tablets by mouth every 4 hours as needed for pain (acute post operative pain). 07/18/2021 09/29/2024 Discontinued take 1 tablet by garrison th every eight hours as needed acetaminophen (TYLENOL EXTRA STRENGTH) 5 00 mg tablet Take 500 mg by mouth every 8 hours as needed. 0 Suspended Comment on above: Take 500 mg by mouth every 8 hours as needed. Take 2 tablets by mo ut every 4 hours as needed for pain (acute post operative pain). Ascorbic Acid (20 sources) Vitamin C Start: 11-11-2021 End: 06-23-2025 take 1 dose by mouth once daily Ascorbic Acid (VITAMIN C) powd Take 1 Each by mouth once daily. 11/11/2021 09/29/2024 Discontinued Start: 11-11-2021 take 1 dose by mouth once alesha y Ascorbic Acid (VITAMIN C) powd Take 1 Each by mouth once daily. 11/11/2021 Active Start: 11-11-2021 take 1 dose by mouth once alesha y Ascorbic Acid (VITAMIN C) powd Take 1 Each by mouth once daily. 0 11/11/2021 Active Comment on above: Take 1 Each by mouth once daily. B-Complex Plus (Pure Encapsulations) - 1qD stress/energy/horm ones/detox/weight loss (20 sources) Start: 11-17-2021 End: 11-21-2023 take 1 capsule by mouth once daily B-Complex Plus (Pure Encapsulations) - 1qD stress/energy/hormones /detox/weight loss Take 1 capsule by mouth once daily. 0 11/17/2021 11/21/2023 Discontinued (Other) Start: 11-17-2021 take 1 capsule by mouth once daily B-Complex Plus (Pure Encapsulations) - 1 qD stress/energy/hormones/detox/weight loss Take 1 capsule by mouth once daily. 0 11/17/2021 Active Comment on above: Take 1 capsule by mo uth once daily. Biocidin Advanced Formula ([employer]) (20 sources) Start: 01-09-2022 End: 10-18-2023 take 5 drop(s) by mouth three times daily Biocidin Advanced Formula ([email or web address]) Take 5 Drops by mouth three times daily. 0 01/09/2022 10/18/2023 Discontinued Start: 01-09-2022 take 5 drop(s) by mo uth three times daily Biocidin Advanced Formula ([employer]) Take 5 Drops by mouth three times daily. 0 01/09/2022 Active Comment on above: Take 5 Drops by mout h three times daily. bisacodyl 10 mg rectal suppository (13 sources) Stimulant Laxative Start: 07-18-2021 End: 11-11-2021 bisacodyl (DULCOLAX) 10 mg supp 1 Suppository by RECTAL route once daily as needed. 0 07/18/2021 11/11/2021 Discontinued (Discontinued by Patient) Comment on above: 1 Suppository by REC CHERIE route once daily as needed. calcitriol 0.0005 mg oral capsule (6 sources) Vitamin D3 Analog Start: 03-04-2019 End: 12-23-2019 Calcitriol 0.5 MCG capsule Discontinued 1 ug PO MOFR March 04, 2019 12:00am December 23, 2019 8:45am SUPPLEMENT Start: 03-04-2019 End: 12-23-2019 Calcitriol 0.5 MCG capsule D iscontinued 0.5 ug PO SUTUWETHSA March 04, 2019 12:00am December 23, 2019 8:45am SUPPLEMENT Start: 03-04-2019 End: 12-23-2019 Calcitriol Discontinued 1 MC G PO MOFR March 04, 2019 1:00am December 23, 2019 9:45am calcium carbonate 1250 mg / cholecalciferol 1000 unt / vitamin k 0.4 mg chewable tablet (3 sources) Vitamin D Start: 03-04-2019 End: 12-23-2019 take 1 tablet by mouth once daily Calcium-Vitamin D3-Vitamin K 1 EACH tablet,chewable Discontinued 1 NMA PO DAILY March 04, 2019 12:00am December 23, 2019 8:45am SUPPLEMENT Start: 03-04-2019 End: 12-23-2019 Calcium-Vitamin D3-Vitamin K Discontinued 1 EACH PO DAILY March 04, 2019 1:00am December 23, 2019 9:45am calcium citrate-vitamin D3 5 00 mg-12.5 mcg (500 unit) chew (20 sources) Start: 01-23-2023 End: 11-21-2023 calcium citrate-vitamin D3 5 00 mg-12.5 mcg (500 unit) chew Take one tablet daily 100 tablet 3 01/23/2023 11/21/2023 Discontinued (Other) Start: 01-23-2023 calcium citrat e-vitamin D3 500 mg-12.5 mcg (500 unit) chew Take one tablet daily 100 tablet 3 01/23/2023 Active Comment on above: Take one tablet alesha y cholecalciferol 0.05 mg chewable tablet (20 sources) Vitamin D Start: 2022 End: 2023 cholecalciferol, vitamin D3, 50 mcg (2,000 unit) chew Take one daily with your largest meal 100 tablet 3 01/23/2023 11/21/2023 Discontinued (Other) Comment on above: Take one daily with your largest meal cyclobenzaprine hydrochloride 5 mg oral tablet (13 sources) Muscle Relaxant Start: 2021 End: 2021 take 1 tablet by mouth three times daily cyclobenzaprine (FLEXERIL) 5 mg tablet Take 1 tablet by mouth three times daily. 0 07/18/2021 11/11/2021 Discontinued (Discontinued by Patient) Comment on above: Take 1 tablet by garrison three times daily. Digestive Enzymes Ultra 180 ct. (Pure Encapsulations) (1 source) Start: 2020 End: 2021 Digestive Enzymes Ultra 180 ct. (Pure Encapsulations) Take 2 capsules with meals 0 04/15/2020 06/06/2021 Discontinued Comment on above: Take 2 capsules with meals docusate sodium 50 mg / sennosides, senior care 8.6 mg oral tablet (13 sources) Start: 2021 End: 2021 take 1 tablet by mouth twice daily senna-docusate (SENNA-S) 8.6-50 mg per tablet 1 tablet by ORAL/FEEDING TUBE route twice daily. 0 07/18/2021 11/11/2021 Discontinued (Discontinued by Patient) Comment on above: 1 tablet by ORAL/FEE DING TUBE route twice daily. G.I. Detox ([employer]) (1 source) Start: 2020 End: 2021 G.I. Detox ([employer]) 1-2 capsules with full glass of water once daily as needed between meals to help with off reactions 0 08/03/2020 06/06/2021 Discontinued Comment on above: 1-2 capsules with fu ll glass of water once daily as needed between meals to help with off reactions 1 ml heparin sodium, porcine 5000 unt/ml injection (13 sources) Unfractionated Heparin, Anti-coagulant Start: 2021 End: 2021 inject 1 mL by subcutaneous injection every twelve hours heparin 5,000 unit/mL injection Inject 1 mL subcutaneously every 12 hours. 0 07/18/2021 11/11/2021 Discontinued (Discontinued by Patient) Comment on above: Inject 1 mL subcutan eously every 12 hours. L-Glutamine Powder ( Pure Encapsulations ) 3 grams/teaspoon (1 source) Start: 2020 End: 2021 L-Glutamine Powder ( Pure Encapsulations ) 3 grams/teaspoon One tsp twice daily in water or smoothie between meals or as directed by your health care practitioner. 0 04/15/2020 06/06/2021 Discontinued Comment on above: One tsp twice daily in water or smoothie between meals or as directed by your health care practitioner. Magnesium (12 sources) End: 2024 take 1 tablet by mouth once daily Magnesium 200 mg tab Take 200 mg by mouth once daily. 05/13/2024 Discontinued take 1 tablet by mouth once alesha y Magnesium 200 mg tab Take 200 mg by mouth once daily. Active magnesium gluconate 550 mg oral tablet (3 sources) Start: 12-23-2019 End: 01-25-2025 Magnesium 30 mg tablet Discontinued 1000 mg PO DAILY December 22, 2019 11:00pm January 24, 2025 11:01pm Start: 12-23-2019 take 1000 mg by mouth once joseph ly Magnesium Active 1000 MG PO DAILY December 23, 2019 12:00am magnesium hydroxide 80 mg/ml oral suspension (13 sources) Start: 07-18-2021 End: 11-11-2021 take 30 mL by mouth once daily as needed magnesium hydroxide (MOM) 400 mg/5 mL suspension 30 mL by ORAL/FEEDING TUBE route once daily as needed. 0 07/18/2021 11/11/2021 Discontinued (Discontinued by Patient) Comment on above: 30 mL by ORAL/FEEDIN G TUBE route once daily as needed. Heoc-Bmwm-LF ([employer]) (1 source) Start: 08-17-2020 End: 06-06-2021 Gtai-Jand-FC ([employer]) Take 1 capsule, 2 times daily with 4 oz or more of water. 0 08/17/2020 06/06/2021 Discontinued Comment on above: Take 1 capsule, 2 ti mes daily with 4 oz or more of water. MEDICATION, NON-DATABASE (12 sources) End: 07-14-2021 take 1 tablet by mouth once daily MEDICATION, NON-DATABASE Take 1 tablet by mouth once daily. MagEnhance (Magnesium) 0 07/14/2021 Discontinued (Discontinued by Patient) End: 07-14-2021 MEDICATION, NON-DATABASE Levothyroxine 25 mcg ProOmega Liquid - 1 tsp daily L-Glutamine Powder - 1 tsp twice daily Digestive Enzymes Ultra - 1 capsule with small meal, 2 with large meal G.I. Detox - 1 capsule, 2 times a week Medi-Hasmukh 500mg - 1 capsule, 2 times a week Ortho Biotic Probiotic - 1 capsule daily Trifortify Waldo Gel - 1/4 tsp daily (will increase by 1/4 tsp each week up to 1 tsp daily) NAC 600 mg - Has not started yet. Was supposed to be started after she got to 3 capsules Medi-Hasmukh. 0 07/14/2021 Discontinued (Discontinued by Patient) take 1 tablet by garrison th once daily MEDICATION, NON-DATABASE Take 1 tablet by mouth once daily. MagEnhance (Magnesium) 0 Suspended MEDICATION, NON- DATABASE Levothyroxine 25 mcg ProOmega Liquid - 1 tsp daily L-Glutamine Powder - 1 tsp twice daily Digestive Enzymes Ultra - 1 capsule with small meal, 2 with large meal G.I. Detox - 1 capsule, 2 times a week Medi-Hasmukh 500mg - 1 capsule, 2 times a week Ortho Biotic Probiotic - 1 capsule daily Trifortify Waldo Gel - 1/4 tsp daily (will increase by 1/4 tsp each week up to 1 tsp daily) NAC 600 mg - Has not started yet. Was supposed to be started after she got to 3 capsules Medi-Hasmukh. 0 Suspended take 1 tablet by garrison th once daily MEDICATION, NON-DATABASE Take 1 tablet by mouth once daily. MagEnhance (Magnesium) 0 Active MEDICATION, NON- DATABASE Levothyroxine 25 mcg ProOmega Liquid - 1 tsp daily L-Glutamine Powder - 1 tsp twice daily Digestive Enzymes Ultra - 1 capsule with small meal, 2 with large meal G.I. Detox - 1 capsule, 2 times a week Medi-Hasmukh 500mg - 1 capsule, 2 times a week Ortho Biotic Probiotic - 1 capsule daily Trifortify Waldo Gel - 1/4 tsp daily (will increase by 1/4 tsp each week up to 1 tsp daily) NAC 600 mg - Has not started yet. Was supposed to be started after she got to 3 capsules Medi-Hasmukh. 0 Active Comment on above: Take 1 tablet by garrison th once daily. MagEnhance (Magnesium) Levothyroxine 25 mcg ProOmega Liquid - 1 tsp daily L-Glutamine Powder - 1 tsp twice daily Digestive Enzymes Ultra - 1 capsule with small meal, 2 with large meal G.I. Detox - 1 capsule, 2 times a week Medi-Hasmukh 500mg - 1 capsule, 2 times a week Ortho Biotic Probiotic - 1 capsule daily Trifortify Waldo Gel - 1/4 tsp daily (will increase by 1/4 tsp each week up to 1 tsp daily) NAC 600 mg - Has not started yet. Was supposed to be started after she got to 3 capsules Medi-Hasmukh. melatonin 3 mg oral tablet (13 sources) Start: 07-19-19 End: 11-12-19 take 1 tablet by mouth once daily at bedtime melatonin 3 mg tablet Take 1 tablet by mouth daily at bedtime. 0 07/18/2021 11/11/2021 Discontinued (Discontinued by Patient) Comment on above: Take 1 tablet by garrison th daily at bedtime. ondansetron 4 mg oral tablet (13 sources) Serotonin-3 Receptor Antagonist Start: 07-19-19 End: 11-12-19 take 1 tablet by mouth every six hours as needed ondansetron (ZOFRAN) 4 mg tablet Take 1 tablet by mouth every 6 hours as needed. 0 07/18/2021 11/11/2021 Discontinued (Discontinued by Patient) Comment on above: Take 1 tablet by garrison th every 6 hours as needed. PhytoMulti ([employer]) (20 sources) Start: 01-10-20 End: 11-21-19 PhytoMulti (Metagen[employer]) Take 2 tablets daily with food 0 01/09/2022 11/21/2023 Discontinued (Other) Start: 01-09-2022 PhytoMulti (Me [employer]agenics) Take 2 tablets daily with food 0 01/09/2022 Active Comment on above: Take 2 tablets daily with food Probiotic 50B (Pure Encapsulations) (6 sources) Start: 04-15-2020 End: 07-14-2021 Probiotic 50B (Pure Encapsulations) Take 1 capsule daily 0 04/15/2020 07/14/2021 Discontinued (Course of therapy completed) Start: 04-15-2020 Probiotic 50B (Pure Encapsulations) Take 1 capsule daily 0 04/15/2020 Suspended Start: 04-15-2020 Probiotic 50B (Pure Encapsulations) Take 1 capsule daily 0 04/15/2020 Active Comment on above: Take 1 capsule daily ProOmega Liquid ([employer]) (6 sources) Start: 01-29-2020 End: 07-14-2021 ProOmega Liquid ([employer]) Take one teaspoonful daily with food 0 01/29/2020 07/14/2021 Discontinued (Course of therapy completed) Start: 01-29-2020 ProOmega Liqui d ([employer]) Take one teaspoonful daily with food 0 01/29/2020 Suspended Start: 01-29-2020 ProOmega Liqui d ([employer]) Take one teaspoonful daily with food 0 01/29/2020 Active Comment on above: Take one teaspoonful daily with food raloxifene hydrochloride 60 mg oral tablet (3 sources) Estrogen Agonist/Antagonist Start: 9 End: 0 take 1 tablet by mouth once daily Raloxifene 60 MG tablet Discontinued 60 mg PO DAILY March 04, 2019 12:00am December 23, 2019 8:46am BONES TriFortify Waldo Gel ([employer]) (20 sources) Start: End: TriFortify Waldo Gel (Oravel) Squeeze tube to fill 1 teaspoon, then swallow twice daily as tolerated Start with 1/4 tsp 0 12/29/2020 11/11/2021 Discontinued (Discontinued by Patient) Start: 12-29-2020 TriFortify Ora nge Gel (Oravel) Squeeze tube to fill 1 teaspoon, then swallow twice daily as tolerated Start with 1/4 tsp 0 12/29/2020 Suspended Start: 12-29-2020 TriFortify Ora nge Gel ([employer]) Squeeze tube to fill 1 teaspoon, then swallow twice daily as tolerated Start with 1/4 tsp 0 12/29/2020 Active Comment on above: Squeeze tube to fill 1 teaspoon, then swallow twice daily as tolerated Start with 1/4 tsp ubidecarenone/naldo min E mixed (COQ10 SG 100 ORAL) (20 sources) End: 09-29-2024 take 1 tablet by mouth once daily ubidecarenone/vitamin E mixed (COQ10 SG 100 ORAL) Take 1 tablet by mouth once daily. 09/29/2024 Discontinued take 1 tablet by mouth once alesha y ubidecarenone/vitamin E mixed (COQ10 SG 100 ORAL) Take 1 tablet by mouth once daily. Active vitamin b12 0.5 mg oral lozenge (3 sources) Vitamin B12 Start: 03-04-2019 End: 12-23-2019 take 500 ug by mouth once daily Cyanocobalamin (Vitamin B-12) 500 MCG lozenge Discontinued 500 ug PO DAILY March 04, 2019 12:00am December 23, 2019 8:49am SUPPLEMENT Vitamin C with R-Lipoic Acid ([employer]) (20 sources) Start: 01-09-2022 End: 11-21-2023 Vitamin C with R-Lipoic Acid ([employer]) Use 8 pumps daily (1000mg of Vitamin C and 50 mg of R-Lipoate). 0 01/09/2022 11/21/2023 Discontinued Start: 01-09-2022 Vitamin C with R-Lipoic Acid ([employer]) Use 8 pumps daily (1000mg of Vitamin C and 50 mg of R-Lipoate). 0 01/09/2022 Active Comment on above: Use 8 pumps daily (1 000mg of Vitamin C and 50 mg of R-Lipoate). Problems Active Problems Problem Classification Problem Date Documented Da te Episodic/Chronic Administrative/social admission (2 sources) Bed-ridden; Translations: [Bed confinement status] Episodic Chronic kidney disease (20 sources) Chronic kidney disease stage 3; Translations: [CKD (chronic kidney disease), stage III] Onset: 0 08-18-2019 Chronic Deficiency and other anemia (1 source) Anemia; Translations: [Anemia, unspecified] Episodic Delirium, dementia, and amnestic and other cognitive disorders (20 sources) Dementia; Translations: [Unspecified dementia without behavioral disturbance] Onset: 0 Chronic Disorders of lipid metabolism (11 sources) Hyperlipidemia; Translations: [Hyperlipidemia, unspecified] Onset: 5 Chronic E Codes: Fall (1 source) Fall 08-19-2024 Essential hypertension (20 sources) Essential hypertension; Translations: [Essential (primary) hypertension] Onset: 0 Chronic Fever of unknown origin (3 sources) Fever; Translations: [Fever, unspecified] 03-22-2021 Episodic Genitourinary symptoms and ill-defined conditions (2 sources) Increased frequency of urination; Translations: [Frequency of micturition] 12-08-2022 Episodic Gout and other crystal arthropathies (1 source) Other chondrocalcinosis, unspecified site; Translations: [Pseudogout] Onset: 5 Chronic Infective arthritis and osteomyelitis (except that caused by tuberculosis or sexually transmitted disease) (3 sources) Pyogenic arthritis, unspecified; Translations: [Wrist pyogenic arthritis] Onset: 5 01-27-2025 Episodic Intracranial injury (2 sources) H/O: head injury; Translations: [Personal history of traumatic brain injury] 09-10-2023 Episodic Menopausal disorders (20 sources) Atrophic vaginitis; Translations: [Postmenopausal atrophic vaginitis] Onset: 5 11-30-2014 Chronic Miscellaneous mental health disorders (1 source) Other symptoms and signs involving emotional state; Translations: [Crying associated with mood] Onset: 5 Episodic Mood disorders (1 source) Depressive disorder; Translations: [Depression, unspecified depression type] 10-22-2024 Chronic Mood disorders (1 source) Mood disorders; Translations: [Depression, unspecified depression type] Onset: 5 Mycoses (1 source) Infection by Jaret albicans; Translations: [Candidiasis, unspecified] Episodic Nonspecific chest pain (4 sources) Chest pain; Translations: [Chest pain, unspecified] 06-27-2023 Episodic Nutritional deficiencies (20 sources) Vitamin D deficiency, unspecified; Translations: [Vitamin D deficiency] Onset: 4 01-23-2023 Chronic Osteoarthritis (20 sources) Arthritis of right acromioclavicular joint; Translations: [Primary osteoarthritis, right shoulder] Onset: 5 Chronic Osteoporosis (20 sources) Senile osteoporosis; Translations: [Age-related osteoporosis without current pathological fracture] Onset: 5 02-05-2020 Chronic Other aftercare (1 source) Surgical follow-up; Translations: [Encounter for follow-up examination after completed treatment for conditions other than malignant neoplasm] Episodic Other and ill-defined cerebrovascular disease (20 sources) Cerebral amyloid angiopathy; Translations: [Cerebral amyloid angiopathy] Onset: 2 06-06-2021 Chronic Other and ill-defined cerebrovascular disease (20 sources) Small vessel cerebrovascular disease; Translations: [Other cerebrovascular disease] Onset: 2 06-09-2021 Chronic Other bone disease and musculoskeletal deformities (20 sources) Osteopenia; Translations: [Other specified disorders of bone density and structure, unspecified site] Onset: 5 03-08-2015 Episodic Other connective tissue disease (2 sources) Recurrent falls ; Translations: [Repeated falls] 09-10-2023 Episodic Other connective tissue disease (1 source) Cramp in lower limb; Translations: [Cramp and spasm] 10-18-2023 Episodic Other connective tissue disease (1 source) Cramp; Translations: [Cramp and spasm] 10-22-2024 Episodic Other endocrine disorders (3 sources) Hyperparathyroidism; Translations: [Hyperparathyroidism, unspecified] 12-24-2020 Chronic Other fractures (20 sources) Fracture of sixth cervical vertebra; Translations: [Unspecified displaced fracture of sixth cervical vertebra, initial encounter for closed fracture] Onset: 2 07-07-2021 Episodic Other fractures (3 sources) Fracture of seventh cervical vertebra; Translations: [Unspecified displaced fracture of seventh cervical vertebra, initial encounter for closed fracture] 06-28-2021 Episodic Other gastrointestinal disorders (20 sources) Irritable bowel syndrome; Translations: [Irritable bowel syndrome without diarrhea] Onset: 9 02-24-2009 Chronic Other gastrointestinal disorders (1 source) Incontinence of feces; Translations: [Full incontinence of feces] 04-25-2024 Episodic Other gastrointestinal disorders (1 source) Functional diarrhea; Translations: [Functional diarrhea] 07-17-2024 Episodic Other gastrointestinal disorders (1 source) Umbilical discharge; Translations: [Other specified symptoms and signs involving the digestive system and abdomen] 09-29-2024 Episodic Other gastrointestinal disorders (1 source) Urgent desire for stool; Translations: [Fecal urgency] 10-31-2024 Episodic Other hematologic conditions (1 source) Raised cardiac enzyme or marker; Translations: [Other specified abnormalities of plasma proteins] Episodic Other hereditary and degenerative nervous system conditions (20 sources) Essential tremor; Translations: [Essential tremor] Onset: 6 03-08-2016 Chronic Other injuries and conditions due to external causes (3 sources) Closed injury of head; Translations: [Unspecified injury of head, initial encounter] 06-28-2021 Episodic Other injuries and conditions due to external causes (2 sources) At risk for falls ; Translations: [History of falling] 11-22-2022 Episodic Other injuries and conditions due to external causes (3 sources) H/O: vertebral fracture; Translations: [Personal history of (healed) traumatic fracture] 09-10-2023 Episodic Other injuries and conditions due to external causes (1 source) Foreign body in right ear; Translations: [Foreign body in right ear, initial encounter] 10-08-2023 Episodic Other injuries and conditions due to external causes (1 source) History of fall; Translations: [History of falling] 10-31-2024 Episodic Other nervous system disorders (2 sources) Cervical myelopathy; Translations: [Disease of spinal cord, unspecified] 09-10-2023 Chronic Other nervous system disorders (1 source) Numbness of hand; Translations: [Anesthesia of skin] Episodic Other nervous system disorders (3 sources) Tremor; Translations: [Tremor, unspecified] 06-27-2023 Episodic Other nervous system disorders (3 sources) Ataxia; Translations: [Ataxia, unspecified] 09-10-2023 Episodic Other non-traumatic joint disorders (20 sources) Bilateral rotator cuff arthropathy of shoulder; Translations: [Other specific arthropathies, not elsewhere classified, right shoulder] Onset: 9 09-20-2018 Chronic Other nutritional; endocrine; and metabolic disorders (20 sources) Hypervitaminosis D; Translations: [Hypervitaminosis D] Onset: 8 03-13-2018 Chronic Other nutritional; endocrine; and metabolic disorders (1 source) Hypermagnesemia; Translations: [Hypermagnesemia] 04-25-2024 Chronic Other nutritional; endocrine; and metabolic disorders (1 source) Hypomagnesemia; Translations: [Hypomagnesemia] 10-19-2023 Chronic Other nutritional; endocrine; and metabolic disorders (1 source) Hypermagnesemia; Translations: [Hypermagnesemia] Onset: Chronic Other nutritional; endocrine; and metabolic disorders (1 source) H/O: metabolic disorder; Translations: [Personal history of other endocrine, nutritional and metabolic disease] 02-26-2023 Episodic Other screening for suspected conditions (not mental disorders or infectious disease) (20 sources) Other specified abnormal findings of blood chemistry; Translations: [Other abnormal blood chemistry] Onset: 0 11-18-2019 Episodic Other skin disorders (2 sources) Disorder of hand; Translations: [Disorder of the skin and subcutaneous tissue, unspecified] 09-30-2024 Episodic Poisoning by other medications and drugs (20 sources) Poisoning by vitamin D; Translations: [Poisoning by vitamins, accidental (unintentional), initial encounter] Onset: 1 03-31-2021 Episodic Residual codes; unclassified (1 source) Obstructive sleep apnea syndrome; Translations: [Obstructive sleep apnea (adult) (pediatric)] 11-21-2023 Chronic Residual codes; unclassified (20 sources) Acute confusion; Translations: [Disorientation, unspecified] Onset: 1 03-31-2021 Episodic Residual codes; unclassified (4 sources) Memory impairment; Translations: [Other amnesia] Episodic Residual codes; unclassified (1 source) Intolerant of heat; Translations: [Other general symptoms and signs] 11-22-2022 Episodic Superficial injury; contusion (1 source) Contusion of scalp; Translations: [Contusion of scalp, sequela] 08-19-2024 Episodic Thyroid disorders (20 sources) Acquired hypothyroidism; Translations: [Hypothyroidism, unspecified] Onset: 1 Chronic Unclassified (1 source) 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, unspecified dementia severity (HCC); Translations: [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, unspecified dementia severity (HCC)] Onset: 5 Urinary tract infections (2 sources) Urinary tract infectious disease; Translations: [Urinary tract infection, site not specified] Episodic Past or Other Problems Problem Classification Problem Date Documented Date Episodic/Chronic Acute and unspecified renal failure (20 sources) Acute renal failure syndrome; Translations: [Acute kidney failure, unspecified] Onset: 020 Resolve d: 020 08-25-2019 Episodic Complications of surgical procedures or medical care (2 sources) Drug therapy finding; Translations: [Unspecified adverse effect of drug or medicament, initial encounter] Onset: 04-25-2024 Episodic E Codes: Fall (20 sources) Fall on same level from slipping, tripping or stumbling ; Translations: [Fall on same level from slipping, tripping and stumbling without subsequent striking against object, initial encounter] Onset: Resolve d: 06-22-2021 Episodic Malaise and fatigue (20 sources) Fatigue; Translations: [Other fatigue] Onset: 11-18-2019 Episodic Nutritional deficiencies (20 sources) Vitamin B-complex deficiency ; Translations: [Vitamin B deficiency, unspecified] Onset: Resolve d: 01-29-2020 Episodic Other bone disease and musculoskeletal deformities (20 sources) X-ray evidence of poor mineralization; Translations: [Other specified disorders of bone density and structure, unspecified site] Onset: 03-31-2021 Episodic Other diseases of kidney and ureters (20 sources) Secondary hyperparathyroidism; Translations: [Secondary hyperparathyroidism of renal origin] Onset: 011 Resolve d: 017 03-08-2017 Chronic Other female genital disorders (20 sources) Vaginal dryness; Translations: [Other specified noninflammatory disorders of vagina] Onset: 014 Resolve d: 015 11-30-2014 Episodic Other fractures (20 sources) Closed fracture of sixth cervical vertebra; Translations: [Unspecified nondisplaced fracture of sixth cervical vertebra, initial encounter for closed fracture] Onset: 06-22-2021 Episodic Other fractures (20 sources) Closed fracture of seventh cervical vertebra; Translations: [Unspecified nondisplaced fracture of seventh cervical vertebra, initial encounter for closed fracture] Onset: 06-22-2021 Episodic Other fractures (20 sources) Closed fracture cervical vertebra, transverse process; Translations: [Fracture of neck, unspecified, initial encounter] Onset: 06-22-2021 Episodic Other gastrointestinal disorders (20 sources) Diarrhea; Translations: [Diarrhea, unspecified] Onset: 010 Resolve d: 016 03-08-2016 Episodic Other gastrointestinal disorders (1 source) Other specified symptoms and signs involving the digestive system and abdomen; Translations: [Umbilicus discharge] Onset: Episodic Other gastrointestinal disorders (1 source) Diarrhea, unspecified; Translations: [Diarrhea, unspecified type] Onset: Episodic Other gastrointestinal disorders (1 source) Full incontinence of feces; Translations: [Incontinence of feces, unspecified fecal incontinence type] Onset: Episodic Other nervous system disorders (20 sources) Impairment of balance; Translations: [Other abnormalities of gait and mobility] Onset: 06-27-2023 Episodic Other nervous system disorders (1 source) Other abnormalities of gait and mobility; Translations: [Balance disorder] Onset: Episodic Other nutritional; endocrine; and metabolic disorders (20 sources) Metabolic syndrome X; Translations: [Dysmetabolic syndrome X] Onset: Resolve d: 03-08-2017 Chronic Other nutritional; endocrine; and metabolic disorders (20 sources) Hypercalcemia; Translations: [Hypercalcemia] Onset: 018 Resolve d: 08-25-2019 Chronic Other skin disorders (1 source) Disorder of the skin and subcutaneous tissue, unspecified; Translations: [Skin lesion of hand] Onset: Episodic Residual codes; unclassified (20 sources) Contact with and (suspected) exposure to mold (toxic); Translations: [Contact with and (suspected) exposure to mold] Onset: 11-18-2019 Episodic Residual codes; unclassified (20 sources) Exposure to mercury; Translations: [Contact with and (suspected) exposure to other hazardous metals] Onset: 01-29-2020 Episodic Residual codes; unclassified (20 sources) Heterozygous methylenetetrahydrofolate reductase mutation; Translations: [Genetic susceptibility to other disease] Onset: 01-29-2020 Episodic Residual codes; unclassified (20 sources) At risk of disease; Translations: [Other specified personal risk factors, not elsewhere classified] Onset: 01-23-2023 Episodic Viral infection (2 sources) Verruca vulgaris; Translations: [Other viral warts] Onset: 025 09-29-2024 Episodic Results Test Name Value Interpretation Reference Range Facility [facility] 02-03-2025 [facility] Telephone (INTMWS) CARMENFIONA Valeri ([id number]) 1940 F T Date Time Provider Department 02/03/25 ASHLEY ROBERSON INTWS During your visit today, we recorded the following information about you: Carolyn Steele RN 02/03/2025 8:41 AM Signed Pt's Dong, calling in regarding recent sertraline liquid prescription that was ordered for pt on 02/02/25. Dong states the liquid form is too expensive and asking if Dr. Roberson would order the pill form. Moriah Hernandez. Thank you. Ashley Roberson MD 02/03/2025 5:15 PM Signed Sent 50 mgs tablet Ashley Reyes MD Allergies As of Date: 02/03/2025 Noted Allergy Reaction AMOXICILLIN 05/04/2005 4 - Hives Comments: GI upset OXYCODONE 07/12/2021 8 - GI Upset PENICILLINS 11/11/2018 4 - Hives SEASONAL ALLERGIES 07/07/2021 9 - Itching Comments: Fall Date Reviewed: 02/02/2025 Reviewed by: Nikki Higgins MA - Fully Assessed Reason for Visit: Medication Request [138] Order(s):sertraline (ZOLOFT) 50 mg tabletTake 1 tablet by mouth once daily.Disp: 90 tabletRfl: 3 Prescriptions as of 02/04/2025 - sertraline (ZOLOFT) 50 mg tablet Take 1 tablet by mouth once daily. - predniSONE (DELTASONE) 20 mg tablet 20 mg two times a day. - rosuvastatin (CRESTOR) 10 mg tablet Take 1 tablet by mouth daily at bedtime. - cholestyramine (QUESTRAN) 4 gram packet Take 1 packet by mouth three times a day with meals. - levothyroxine (SYNTHROID) 25 mcg tablet Take 1 tablet by mouth once daily. - donepezil (ARICEPT) 10 mg tablet Take 1 tablet by mouth daily after breakfast. - colestipol (COLESTID) 1 gram tablet Take 1 tablet by mouth two times a day. Facility-Administered Medications as of 02/04/2025 - denosumab 60 mg injection (PROLIA) Meds Comments as of 03/08/2015: Ebony Noah Problem List As Of Date 02/03/2025 Noted Resolved Age-related osteoporosis without current pathol*02/06/2005 Dysmetabolic syndrome X [E88.810] 07/10/2006 03/08/2017 Spastic Colitis [K58.9] 02/24/2009 Diarrhea [R19.7] 04/12/2009 03/08/2016 Secondary hyperparathyroidism (HCC) [N25.81] 08/02/2010 03/08/2017 Vaginal dryness [N89.8] 11/26/2013 11/30/2014 Vitamin D deficiency [E55.9] 01/19/2014 Postmenopausal atrophic vaginitis [N95.2] 11/30/2014 Osteopenia [M85.80] 03/08/2015 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] 03/08/2015 Essential tremor [G25.0] 03/08/2016 Hypercalcemia [E83.52] 03/13/2018 08/25/2019 High vitamin D level [E67.3] 03/13/2018 Rotator cuff arthropathy of both shoulders [M12*09/20/2018 Essential hypertension [I10] 08/18/2019 CKD (chronic kidney disease), stage III (HCC) [*08/18/2019 DEMETRA (acute kidney injury) (HCC) [N17.9] 08/18/2019 08/25/2019 Vitamin B 12 deficiency [E53.8] 08/18/2019 08/25/2019 Fatigue [R53.83] 11/18/2019 Elevated LFTs [R79.89] 11/18/2019 Mold exposure [Z77.120] 11/18/2019 B-complex deficiency [E53.9] 01/29/2020 Essential fatty acid (EFA) deficiency [E63.0] 01/29/2020 Exposure to mercury [Z77.018] 01/29/2020 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 Dementia without behavioral disturbance (HCC) [*02/20/2020 Hypothyroidism, acquired [E03.9] 05/22/2020 Abnormal finding on thyroid function test [R94.*03/31/2021 Acute confusion [R41.0] 03/31/2021 Osteopenia determined by x-ray [M85.80] 03/31/2021 Vitamin D toxicity [T45.2X1A] 03/31/2021 Cerebral amyloid angiopathy (CODE) [I68.0] 06/06/2021 Cerebral microvascular disease [I67.89] 06/09/2021 Closed nondisplaced fracture of sixth cervical *06/22/2021 Closed nondisplaced fracture of seventh cervica*06/22/2021 Closed fracture of transverse process of cervic*06/22/2021 Fall [W19.XXXA] 06/22/2021 06/22/2021 C6 cervical fracture (HCC) [S12.500A] 07/07/2021 At high risk for fracture [Z91.89] 01/23/2023 Balance disorder [R26.89] 07/17/2023 Pseudogout [M11.20] 02/02/2025 Prescriptions ordered this encounter Disp Refills Start End SERTRALINE 50 MG TABLET 90 t* 3 02/03/2025 Route: PO Sig: Take 1 tablet by mouth once daily. Medications Discontinued During This Encounter Prescriptions - sertraline (ZOLOFT) 20 mg/mL concentrated solution (Discontinued) Take 2.5 mL by mouth once daily. For the first week please take 1.25 mgs Encounter Status:Closed by TSERING LOO on 02/04/25 [facility] 02-02-2025 [facility] Office Visit (INTMWS ) FIONA GRUBER ([id number]) 1940 F [facility] Date Time Provider Department 02/02/25 11:00 AM ASHLEY ROBERSON During your visit today, we recorded the following information about you: Pulse Respiration Blood pressure Weight 108/minute 16/minute 110/73 54.7 kg Ashley Roberson MD 02/02/2025 1:17 PM Signed Reason for Visit Follow up HPI Fiona Gruber is a 84-year-old female with a history of pseudogout, dementia, and chronic diarrhea, presenting for follow-up after recent hospitalization for right wrist pain and acute pseudogouty arthritis. She is accompanied by her and daughter, who are providing history on her behalf. Fiona was admitted from 01/24 to 01/26 for right wrist pain, initially suspected to be septic arthritis. However, after a right wrist arthrocentesis revealed minimal cloudiness of the synovial fluid, septic arthritis was ruled out, and she was diagnosed with acute pseudogouty arthritis of the right wrist. She was treated with Prednisone for 5 days, which reportedly improved her symptoms. She still experiences some pain when pressure is applied to her hand, but denies current pain. Since her hospitalization, Fiona has been experiencing increased mood swings and crying spells. Her Lexapro was discontinued during her hospital stay. Prior to discontinuation, her had been administering it every other day, which he believes contributed to mood swings. When given daily, it reportedly caused lethargy. Fiona expresses a desire to go home, which her family believes is contributing to her emotional distress. Fiona has also been experiencing headaches over the past few days. She denies any recent falls. Fiona has a history of chronic diarrhea and has been prescribed cholestyramine, but she is non-compliant with the medication. Her daughter reports that even when taken regularly, the medication did not consistently prevent episodes of diarrhea. Recently, her stools have been solid, and she denies any current issues with diarrhea. She also denies constipation. Her daughter notes that Fiona does not go to the bathroom regularly and may go a couple of days without a bowel movement. She has an upcoming appointment with a functional medicine specialist to further investigate the cause of her diarrhea. Fiona is currently taking donepezil, but is non-compliant with memantine due to difficulty swallowing pills. She is also taking thyroid medication. Fiona reportedly sleeps 10-11 hours per night and takes naps during the day. She is able to eat independently but requires assistance with other activities of daily living, such as dressing, washing, and toileting. Her family notes that her ability to perform these tasks varies from day to day. She has been experiencing increased confusion and difficulty remembering family members, which her family believes is a progression of her dementia. SOCIAL HISTORY[1] Past medical history, appointments, medications, allergies reviewed. Pertinent Lab/Diagnostic Studies are reviewed and discussed today Current Outpatient Medications: rosuvastatin (CRESTOR) 10 mg tablet cholestyramine (QUESTRAN) 4 gram packet donepezil (ARICEPT) 10 mg tablet colestipol (COLESTID) 1 gram tablet predniSONE (DELTASONE) 20 mg tablet sertraline (ZOLOFT) 20 mg/mL concentrated solution levothyroxine (SYNTHROID) 25 mcg tablet Current Facility-Administered Medications: denosumab 60 mg injection (PROLIA) Health Maintenance Bone Density Screening Advance Directive Discussion Medicare Advantage Annual Wellness Visit@ Review Of Systems Constitutional: (+) excessive sleepiness Head: (+) headaches Gastrointestinal: (+) constipation, (-) diarrhea Musculoskeletal: (-) right wrist pain, (-) falls Neurological: (+) confusion, (+) memory impairment Psychiatric: (+) crying spells, (+) mood swings Physical Exam BP 110/73 Pulse 108 Resp 16 Wt 54.7 kg (120 lb 9.6 oz) BMI 20.70 kg/m? GENERAL: NAD, alert and oriented. SKIN: Unremarkable, no rash or skin lesions. HEAD: Normocephalic. EYES: PERRLA, EOMI, conjunctiva clear. NECK: Supple, no lymphadenopathy, normal thyroid, no carotid bruits. LUNGS: Clear to auscultation bilaterally, no wheezes/rhonchi/rales. HEART: Regular rate and rhythm, no murmurs. No ectopy. EXTREMITIES: Normal, no deformities, no skin discoloration, no edema. NEURO: Awake, alert and oriented x3, cranial nerves II-XII grossly intact, normal gait, no involuntary motions. 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 - Left knee: Pain attributed to a Delong?s cyst. Assessment and Plan 1. 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, unspecified dementia s (more content not included)... Normal [facility] Absolute lymphocyte countOrd ered By: Jonah Mckoy on 01-27-2025 Lymphocytes Auto (Unsp spec) [#/Vol] 1.85 10*3/uL 0.83-4.51 [facility] Absolute neutrophil countOrd ered By: Jonah Mckoy on 01-27-2025 Neutrophils (Bld) [#/Vol] 5.0 10*3/uL 2.0-7.7 [facility] Anion gap in Serum or Plasma Ordered By: Jonah Mckoy on 01-27-2025 Anion gap [Moles/Vol] 10 mmol/L 5-15 [facility] Automated lymphocyte count a s percentage of total leukocytesOrdered By: Jonah Mckoy on 01-27-2025 Lymphocytes/100 WBC Auto (Unsp spec) 23.1 % 19-41 [facility] BUN/creatinine ratioOrdered By: Jonah Mckoy on 01-27-2025 Urea nitrogen/Creatinine [Mass ratio] 23.0 mg/mg High 01-26 [facility] Basic Metabolic Profile (BMP )on 01-27-2025 BUN/CRE 23.0 RATIO High 01-26 [facility] Comment on above: Performed By: #### L 500.2500, L100.0100 #### [facility] [address] [place], [address] Calcium [Mass/Vol] 8.7 mg/dL Normal 7.6-11.0 [facility] Comment on above: Performed By: #### L 500.2500, L100.0100 #### [facility] [address] [place], [address] Chloride [Moles/Vol] 108 mmol/L Normal 98-108 [facility] Comment on above: Performed By: #### L 500.2500, L100.0100 #### [facility] [address] [place], [address] CO2 [Moles/Vol] 22.9 mmol/L Normal 21.0-32.0 [facility] Comment on above: Performed By: #### L 500.2500, L100.0100 #### [facility] [address] [place], [address] Creatinine [Mass/Vol] 0.57 mg/dL Low 0.70-1.20 [facility] Comment on above: Performed By: #### L 500.2500, L100.0100 #### [facility] [address] [place], [address] ECRCL 46.26 ml/min Low 50-250 [facility] Comment on above: Performed By: #### L 500.2500, L100.0100 #### [facility] [address] [place], [address] GAP 10 Normal 5-15 [facility] Comment on above: Performed By: #### L 500.2500, L100.0100 #### [facility] [address] [place], [address] GFR/1.73 sq M.predicted among non-blacks MDRD (S/P/Bld) [Vol rate/Area] 90 mL/min/{1.73_m2} Normal >60 [facility] Comment on above: Result Comment: mL/m in/1.73m2 CKD-EPI Creatinine Equation (2020) Performed By: #### L 500.2500, L100.0100 #### [facility] [address] [place], [address] Glucose [Mass/Vol] 114 mg/dL High 70-99 [facility] Comment on above: Performed By: #### L 500.2500, L100.0100 #### [facility] [address] [place], [address] Potassium [Moles/Vol] 3.4 mmol/L Normal 3.3-5.1 [facility] Comment on above: Performed By: #### L 500.2500, L100.0100 #### [facility] [address] [place], [address] Sodium [Moles/Vol] 141 mmol/L Normal 133-145 [facility] Comment on above: Performed By: #### L 500.2500, L100.0100 #### [facility] [address] [place], [address] Urea nitrogen [Mass/Vol] 13 mg/dL Normal 4-19 [facility] Comment on above: Performed By: #### L 500.2500, L100.0100 #### [facility] [address] [place], [address] Basophil percentageOrdered B y: Jonah Mckoy on 01-27-2025 Basophils/100 WBC (Bld) 0.4 % 0-1 [facility] CBC W/Diff, Automatedon 01-08 Absolute Lymph 1.85 X10 3/uL Normal 0.83-4.51 [facility] Comment on above: Performed By: #### L 500.2500, L100.0100 #### [facility] [address] [place], [address] Absolute Neut 5.0 X10 3/uL Normal 2.0-7.7 [facility] Comment on above: Performed By: #### L 500.2500, L100.0100 #### [facility] [address] [place], [address] Basophils/100 WBC (Bld) 0.4 % Normal 0-1 [facility] Comment on above: Performed By: #### L 500.2500, L100.0100 #### [facility] [address] [place], [address] Eosinophils/100 WBC (Bld) 0.7 % Normal 0-5 [facility] Comment on above: Performed By: #### L 500.2500, L100.0100 #### [facility] [address] [place], [address] Erythrocyte distribution width (RBC) [Ratio] 14.6 % Normal 11.6-14.6 [facility] Comment on above: Performed By: #### L 500.2500, L100.0100 #### [facility] [address] [place], [address] Hematocrit (Bld) [Volume fraction] 33.8 % Low 37-47 [facility] Comment on above: Performed By: #### L 500.2500, L100.0100 #### [facility] [address] [place], [address] Hemoglobin (Bld) [Mass/Vol] 11.1 g/dL Low 12.0-15.0 [facility] Comment on above: Performed By: #### L 500.2500, L100.0100 #### [facility] [address] [place], [address] IG% 0.400 Normal 0.0-0.9 [facility] Comment on above: Result Comment: IG% - Immature Granulocytes (promyelocytes, myelocytes and metamyelocytes) > 1% indicates that a LEFT SHIFT is Present. Performed By: #### L 500.2500, L100.0100 #### [facility] [address] [place], [address] Lymphocytes/100 WBC (Bld) 23.1 % Normal 19-41 [facility] Comment on above: Performed By: #### L 500.2500, L100.0100 #### [facility] [address] [place], [address] MCH (RBC) [Entitic mass] 27.9 pg Normal 27.0-32.0 [facility] Comment on above: Performed By: #### L 500.2500, L100.0100 #### [facility] [address] [place], [address] MCHC (RBC) [Mass/Vol] 32.8 g/dL Normal 32-36 [facility] Comment on above: Performed By: #### L 500.2500, L100.0100 #### [facility] [address] [place], [address] MCV (RBC) [Entitic vol] 84.9 fL Normal 81-99 [facility] Comment on above: Performed By: #### L 500.2500, L100.0100 #### [facility] [address] [place], [address] Monocytes/100 WBC (Bld) 13.1 % High 0-10 [facility] Comment on above: Performed By: #### L 500.2500, L100.0100 #### [facility] [address] [place], [address] Neutrophils/100 WBC (Bld) 62.3 % Normal 47-70 [facility] Comment on above: Performed By: #### L 500.2500, L100.0100 #### [facility] [address] [place], [address] Nucleated RBC (Bld) [#/Vol] 0 10*3/uL Normal 0-5 [facility] Comment on above: Performed By: #### L 500.2500, L100.0100 #### [facility] [address] [place], [address] Platelet mean volume (Bld) [Entitic vol] 11.2 fL Normal 6.2-12.0 [facility] Comment on above: Performed By: #### L 500.2500, L100.0100 #### [facility] [address] [place], [address] Platelets (Bld) [#/Vol] 206 10*3/uL Normal 150-450 [facility] Comment on above: Performed By: #### L 500.2500, L100.0100 #### [facility] [address] [place], [address] RBC (Bld) [#/Vol] 3.98 10*6/uL Low 4.2-5.4 [facility] Comment on above: Performed By: #### L 500.2500, L100.0100 #### [facility] [address] [place], [address] RDW SD 45.2 fl High 35.1-43.9 [facility] Comment on above: Performed By: #### L 500.2500, L100.0100 #### [facility] [address] [place], [address] WBC (Bld) [#/Vol] 8.0 10*3/uL Normal 4.4-11.0 [facility] Comment on above: Performed By: #### L 500.2500, L100.0100 #### [facility] [address] [place], [address] CNPNon 01-27-2025 [facility] Telephone (INTMWS) FIONA GRUBER ([id number]) 1940 F T Date Time Provider Department 01/27/25 ASHLEY ROBERSON INTWS During your visit today, we recorded the following information about you: Ann Thompson, TYRON 01/27/2025 10:14 AM Signed Pt's Dong calling in asking if Dr. Roberson could order pt a different medication to calm pt down. He states the medication she is on makes her sleepy and she is like a zombie. also states pt has sundowners and cries a lot in the evenings. After multiple questions, is talking about pt's Lexapro. He states they abruptly stopped her Lexapro a few months ago and then last week restarted it for a couple of days and then stopped it again. He also states that pt is currently in [facility] as she was admitted for an infection in her wrist this past Sunday. They are awaiting culture results to see if pt gets to go home today. unsure if pt is currently receiving the Lexapro. Called and spoke with nursing staff and pt is currently not receiving the Lexapro. Explained to that pt will probably need a hospital follow up and to call us within 2 days of discharge. Also explained that we would need to see pt to discuss different options of medications. Will wait to hear back from pt's or will check in with him tomorrow. Ashley Roberson MD 01/28/2025 4:40 PM Signed Set patient to see me in the next 2 weeks Eric, Tsering Mayo MD, MA 01/28/2025 5:10 PM Signed Patient scheduled this coming Sunday. Allergies As of Date: 01/27/2025 Noted Allergy Reaction AMOXICILLIN 05/04/2005 4 - Hives Comments: GI upset OXYCODONE 07/12/2021 8 - GI Upset PENICILLINS 11/11/2018 4 - Hives SEASONAL ALLERGIES 07/07/2021 9 - Itching Comments: Fall Date Reviewed: 10/22/2024 Reviewed by: Nikki Higgins MA - Fully Assessed Reason for Visit: Medication Question [8988] Prescriptions as of 01/28/2025 - rosuvastatin (CRESTOR) 10 mg tablet Take 1 tablet by mouth daily at bedtime. - cholestyramine (QUESTRAN) 4 gram packet Take 1 packet by mouth three times a day with meals. - escitalopram oxalate (LEXAPRO) 10 mg tablet Take 1 tablet by mouth daily at bedtime. - levothyroxine (SYNTHROID) 25 mcg tablet Take 1 tablet by mouth once daily. - memantine (NAMENDA) 10 mg tablet Take 1 tablet by mouth two times a day. - donepezil (ARICEPT) 10 mg tablet Take 1 tablet by mouth daily after breakfast. - colestipol (COLESTID) 1 gram tablet Take 1 tablet by mouth two times a day. Facility-Administered Medications as of 01/28/2025 - denosumab 60 mg injection (PROLIA) Meds Comments as of 03/08/2015: Ebony Zamora Problem List As Of Date 01/27/2025 Noted Resolved Age-related osteoporosis without current pathol*02/06/2005 Dysmetabolic syndrome X [E88.810] 07/10/2006 03/08/2017 Spastic Colitis [K58.9] 02/24/2009 Diarrhea [R19.7] 04/12/2009 03/08/2016 Secondary hyperparathyroidism (HCC) [N25.81] 08/02/2010 03/08/2017 Vaginal dryness [N89.8] 11/26/2013 11/30/2014 Vitamin D deficiency [E55.9] 01/19/2014 Postmenopausal atrophic vaginitis [N95.2] 11/30/2014 Osteopenia [M85.80] 03/08/2015 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] 03/08/2015 Essential tremor [G25.0] 03/08/2016 Hypercalcemia [E83.52] 03/13/2018 08/25/2019 High vitamin D level [E67.3] 03/13/2018 Rotator cuff arthropathy of both shoulders [M12*09/20/2018 Essential hypertension [I10] 08/18/2019 CKD (chronic kidney disease), stage III (HCC) [*08/18/2019 DEMETRA (acute kidney injury) (HCC) [N17.9] 08/18/2019 08/25/2019 Vitamin B 12 deficiency [E53.8] 08/18/2019 08/25/2019 Fatigue [R53.83] 11/18/2019 Elevated LFTs [R79.89] 11/18/2019 Mold exposure [Z77.120] 11/18/2019 B-complex deficiency [E53.9] 01/29/2020 Essential fatty acid (EFA) deficiency [E63.0] 01/29/2020 Exposure to mercury [Z77.018] 01/29/2020 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 Dementia without behavioral disturbance (HCC) [*02/20/2020 Hypothyroidism, acquired [E03.9] 05/22/2020 Abnormal finding on thyroid function test [R94.*03/31/2021 Acute confusion [R41.0] 03/31/2021 Osteopenia determined by x-ray [M85.80] 03/31/2021 Vitamin D toxicity [T45.2X1A] 03/31/2021 Cerebral amyloid angiopathy (CODE) [I68.0] 06/06/2021 Cerebral microvascular disease [I67.89] 06/09/2021 Closed nondisplaced fracture of sixth cervical *06/22/2021 Closed nondisplaced fracture of seventh cervica*06/22/2021 Closed fracture of transverse process of cervic*06/22/2021 Fall [W19.XXXA] 06/22/2021 06/22/2021 C6 cervical fracture (HCC) [S12.500A] 07/07/2021 At high risk for fracture [Z91.89] 01/23/2023 Balance disorder [R26.89] 07/17/2023 Encounter Status:Closed by TSERING LOO on 01/28/25 Normal [facility] Carbon dioxide, total [Moles /volume] in Central venous bloodOrdered By: Jonah Mckoy on 01-27-2025 CO2 [Moles/Vol] 22.9 mmol/L 21.0-32.0 [facility] Chloride assayOrdered By: Mike Mckoy on 01-27-2025 Chloride [Moles/Vol] 108 mmol/L 98-108 [facility] Electrocardiogram reportOrde red By: Alec Jack on 01-27-2025 EKG study [facility] [address] [place] [address] 12 Lead EKG 01/25/25 0439 MR#: [id number] Acct: [id number] Name: FIONA GRUBER Rep #:[id number] : 1940 84 From: Alec fajardo MD Attending Dr: Dr. Jonah Mckoy, DO Status: DIS IN Ordering Dr: Jonah White MD Date: Location: [facility] Sex: F C Admitted: 01/24/25 Test Reason : AM EKG Blood Pressure : */* mmHG Vent. Rate : 85 BPM Atrial Rate : 85 BPM P-R Int : 126 ms QRS Dur : 146 ms QT Int : 432 ms P-R-T Axes : 81 60 53 degrees QTcB Int : 514 ms Normal sinus rhythm Right bundle branch block Abnormal ECG When compared with ECG of 14-Mar-2021 20:00, No significant change was found Confirmed by Alec Jack ([id number]), desk editor JAYY SOSA ([id number]) on :16:53 AM Referred By: MAHIN Confirmed By: Alec Jack 01/28/25 0916 Date _ Alec Jack MD CC: Dr. Ashley Roberson MD; Dr. Jonah White MD; Dr. Jonah Mckoy, DO ~ Signed [facility] Work Phone: Eosinophil percentageOrdered By: Jonah Mckoy on 01-27-2025 Eosinophils/100 WBC (Bld) 0.7 % 0-5 [facility] Erythrocyte distribution wid th ratioOrdered By: Jonah Mckoy on 01-27-2025 Erythrocyte distribution width (RBC) [Ratio] 14.6 % 11.6-14.6 [facility] Erythrocyte distribution wid th standard deviationOrdered By: Jonah Mckoy on 01-27-2025 Erythrocyte distribution width (RBC) [Ratio] 45.2 fl High 35.1-43.9 [facility] Glomerular filtration rate ( GFR) estimation/1.73 sq m using serum, plasma, or whole bOrdered By: Jonah Mckoy on 01-27-2025 GFR/1.73 sq M.predicted among non-blacks MDRD (S/P/Bld) [Vol rate/Area] 90 mL/min/{1.73_m2} >60 [facility] Comment on above: mL/min/1.73m2 CKD-EP I Creatinine Equation (2020) Hematocrit Auto (Bld) [Volum e fraction]Ordered By: Jonah Mckoy on 01-27-2025 Hematocrit (Bld) [Volume fraction] 33.8 % Low 37-47 [facility] Hemoglobin measurementOrdere d By: Jonah Mckoy on 01-27-2025 Hemoglobin (Bld) [Mass/Vol] 11.1 g/dL Low 12.0-15.0 [facility] Immature granulocytes/100 WB C Auto (Bld)Ordered By: Jonah Mckoy on 01-27-2025 Immature granulocytes/100 WBC (Bld) 0.400 % 0.0-0.9 [facility] Comment on above: IG% - Immature Granu locytes (promyelocytes, myelocytes and metamyelocytes) > 1% indicates that a LEFT SHIFT is Present. MCV (mean corpuscular volume ) determinationOrdered By: Jonah Mckoy on 01-27-2025 MCV (RBC) [Entitic vol] 84.9 fL 81-99 [facility] Mean corpuscular hemoglobin (MCH) determinationOrdered By: Jonah Mckoy on 01-27-2025 MCH (RBC) [Entitic mass] 27.9 pg 27.0-32.0 [facility] Mean corpuscular hemoglobin concentration (MCHC) determinationOrdered By: Jonah Mckoy on 01-27-2025 MCHC (RBC) [Mass/Vol] 32.8 g/dL 32-36 [facility] Mean platelet volume determi nationOrdered By: Jonah Mckoy on 01-27-2025 Platelet mean volume (Bld) [Entitic vol] 11.2 fL 6.2-12.0 [facility] Monocyte percentageOrdered B y: Jonah Mckoy on 01-27-2025 Monocytes/100 WBC (Bld) 13.1 % High 0-10 [facility] Neutrophil percentageOrdered By: Jonah Mckoy on 01-27-2025 Neutrophils/100 WBC (Bld) 62.3 % 47-70 [facility] Nucleated red blood cell per centageOrdered By: Jonah Mckoy on 01-27-2025 Nucleated RBC/100 WBC (Bld) [Ratio] 0 % 0-5 [facility] Platelet countOrdered By: Mike Mckoy on 01-27-2025 Platelets (Bld) [#/Vol] 206 10*3/uL 150-450 [facility] Potassium measurement (mass/ volume)Ordered By: Jonah Mckoy on 01-27-2025 Potassium (Unsp spec) [Mass/Vol] 3.4 mmol/L 3.3-5.1 [facility] RBC Auto (Bld) [#/Vol]Ordere d By: Jonah Mckoy on 01-27-2025 RBC (Bld) [#/Vol] 3.98 10*6/uL Low 4.2-5.4 [facility] Serum creatinine measurement (mass/volume)Ordered By: Jonah Mckoy on 01-27-2025 Creatinine [Mass/Vol] 0.57 mg/dL Low 0.70-1.20 [facility] Serum glucose measurement (m ass/volume)Ordered By: Jonah Mckoy on 01-27-2025 Glucose [Mass/Vol] 114 mg/dL High 70-99 [facility] Serum or plasma calcium heydi urement (mass/volume)Ordered By: Jonah Mckoy on 01-27-2025 Calcium [Mass/Vol] 8.7 mg/dL 7.6-11.0 [facility] Serum or plasma urea nitroge n measurement (mass/volume)Ordered By: Jonah Mckoy on 01-27-2025 Urea nitrogen [Mass/Vol] 13 mg/dL 4-19 [facility] Sodium levelOrdered By: Jonah Mckoy on 01-27-2025 Sodium [Moles/Vol] 141 mmol/L 133-145 [facility] White blood cell (WBC) count Ordered By: Jonah Mckoy on 01-27-2025 WBC (Bld) [#/Vol] 8.0 10*3/uL 4.4-11.0 [facility] Basic Metabolic Profile (BMP )on 01-26-2025 BUN/CRE 25.3 RATIO High 01-26 [facility] Comment on above: Performed By: #### L 500.2500, L100.0100 #### [facility] [address] [place] [address], [id number] Calcium [Mass/Vol] 8.3 mg/dL Normal 7.6-11.0 [facility] Comment on above: Performed By: #### L 500.2500, L100.0100 #### [facility] [address] [place], [address] Chloride [Moles/Vol] 106 mmol/L Normal 98-108 [facility] Comment on above: Performed By: #### L 500.2500, L100.0100 #### [facility] [address] [place], [address] CO2 [Moles/Vol] 23.9 mmol/L Normal 21.0-32.0 [facility] Comment on above: Performed By: #### L 500.2500, L100.0100 #### [facility] [address] [place], [address] Creatinine [Mass/Vol] 0.61 mg/dL Low 0.70-1.20 [facility] Comment on above: Performed By: #### L 500.2500, L100.0100 #### [facility] [address] [place], [address] ECRCL 46.26 ml/min Low 50-250 [facility] Comment on above: Performed By: #### L 500.2500, L100.0100 #### [facility] [address] [place], [address] GAP 8 Normal 5-15 [facility] Comment on above: Performed By: #### L 500.2500, L100.0100 #### [facility] [address] [place], [address] GFR/1.73 sq M.predicted among non-blacks MDRD (S/P/Bld) [Vol rate/Area] 88 mL/min/{1.73_m2} Normal >60 [facility] Comment on above: Result Comment: mL/m in/1.73m2 CKD-EPI Creatinine Equation (2020) Performed By: #### L 500.2500, L100.0100 #### [facility] [address] [place], [address] Glucose [Mass/Vol] 102 mg/dL High 70-99 [facility] Comment on above: Performed By: #### L 500.2500, L100.0100 #### [facility] [address] [place], [address] Potassium [Moles/Vol] 3.8 mmol/L Normal 3.3-5.1 [facility] Comment on above: Performed By: #### L 500.2500, L100.0100 #### [facility] [address] [place], [address] Sodium [Moles/Vol] 138 mmol/L Normal 133-145 [facility] Comment on above: Performed By: #### L 500.2500, L100.0100 #### [facility] [address] [place], [address] Urea nitrogen [Mass/Vol] 16 mg/dL Normal 4-19 [facility] Comment on above: Performed By: #### L 500.2500, L100.0100 #### [facility] [address] [place], [address] CBC W/Diff, Automatedon 10-2 0-2025 Absolute Lymph 1.99 X10 3/uL Normal 0.83-4.51 [facility] Comment on above: Performed By: #### L 500.2500, L100.0100 #### [facility] [address] [place], [address] Absolute Neut 7.1 X10 3/uL Normal 2.0-7.7 [facility] Comment on above: Performed By: #### L 500.2500, L100.0100 #### [facility] [address] [place], [address] Basophils/100 WBC (Bld) 0.2 % Normal 0-1 [facility] Comment on above: Performed By: #### L 500.2500, L100.0100 #### [facility] [address] [place], [address] Eosinophils/100 WBC (Bld) 0.3 % Normal 0-5 [facility] Comment on above: Performed By: #### L 500.2500, L100.0100 #### [facility] [address] [place], [address] Erythrocyte distribution width (RBC) [Ratio] 14.5 % Normal 11.6-14.6 [facility] Comment on above: Performed By: #### L 500.2500, L100.0100 #### [facility] [address] [place], [address] Hematocrit (Bld) [Volume fraction] 33.3 % Low 37-47 [facility] Comment on above: Performed By: #### L 500.2500, L100.0100 #### [facility] [address] [place], [address] Hemoglobin (Bld) [Mass/Vol] 11.0 g/dL Low 12.0-15.0 [facility] Comment on above: Performed By: #### L 500.2500, L100.0100 #### [facility] [address] [place], [address] IG% 0.300 Normal 0.0-0.9 [facility] Comment on above: Result Comment: IG% - Immature Granulocytes (promyelocytes, myelocytes and metamyelocytes) > 1% indicates that a LEFT SHIFT is Present. Performed By: #### L 500.2500, L100.0100 #### [facility] [address] [place], [address] Lymphocytes/100 WBC (Bld) 19.1 % Normal 19-41 [facility] Comment on above: Performed By: #### L 500.2500, L100.0100 #### [facility] [address] [place], [address] MCH (RBC) [Entitic mass] 28.6 pg Normal 27.0-32.0 [facility] Comment on above: Performed By: #### L 500.2500, L100.0100 #### [facility] [address] [place], [address] MCHC (RBC) [Mass/Vol] 33.0 g/dL Normal 32-36 [facility] Comment on above: Performed By: #### L 500.2500, L100.0100 #### [facility] [address] [place], [address] MCV (RBC) [Entitic vol] 86.5 fL Normal 81-99 [facility] Comment on above: Performed By: #### L 500.2500, L100.0100 #### [facility] [address] [place], [address] Monocytes/100 WBC (Bld) 12.3 % High 0-10 [facility] Comment on above: Performed By: #### L 500.2500, L100.0100 #### [facility] [address] [place], [address] Neutrophils/100 WBC (Bld) 67.8 % Normal 47-70 [facility] Comment on above: Performed By: #### L 500.2500, L100.0100 #### [facility] [address] [place], [address] Nucleated RBC (Bld) [#/Vol] 0 10*3/uL Normal 0-5 [facility] Comment on above: Performed By: #### L 500.2500, L100.0100 #### [facility] [address] [place], [address] Platelet mean volume (Bld) [Entitic vol] 11.6 fL Normal 6.2-12.0 [facility] Comment on above: Performed By: #### L 500.2500, L100.0100 #### [facility] [address] [place], [address] Platelets (Bld) [#/Vol] 185 10*3/uL Normal 150-450 [facility] Comment on above: Performed By: #### L 500.2500, L100.0100 #### [facility] [address] [place], [address] RBC (Bld) [#/Vol] 3.85 10*6/uL Low 4.2-5.4 [facility] Comment on above: Performed By: #### L 500.2500, L100.0100 #### [facility] [address] [place], [address] RDW SD 46.0 fl High 35.1-43.9 [facility] Comment on above: Performed By: #### L 500.2500, L100.0100 #### [facility] [address] [place], [address] WBC (Bld) [#/Vol] 10.4 10*3/uL Normal 4.4-11.0 [facility] Comment on above: Performed By: #### L 500.2500, L100.0100 #### [facility] [address] [place], [address] Consultation - Infectious Dx on 01-26-2025 Consultation - Infectious Dx [facility] Medical Records Department [address] [place] [address] Consultation - Infectious Dx 01/26/25 1554 MR#: [id number] Acct: [id number] Name: FIONA GRUBER Rep #: [id number] : 1940 84 From: Oscar Saravia MD PCP: Dr. Ashley Roberson MD Status:ADM IN Location: [facility] [place] [id number] Assessment Plan Assessment/Plan (1) Septic arthritis of right wrist: QUALIFIERS: Septic arthritis organism: due to unspecified organism Qualified Code(s): M00.9 - Pyogenic arthritis, unspecified PLAN: Fluid cx neg so far, improving on vanc/ceftriaxone will follow, thank you HPI Consult Data Date of Consult: 01/26/25 HPI Narrative Reason for Consultation: septic arthritis HPI Narrative: FIONA GRUBER, is a 84 F with h/o dementia, presented 01/24 to ED with two days progressive R wrist pain, swelling, redness. No fever or chiills, no known inciting event. Admitted here on vanc/ceftriaxone, wrist less sore. Full ROS performed and neg except as noted above PFSH Medical History Hyperparathyroidism HTN (hypertension) Hypercalcemia Hearing disorder History of back problems Arthritis Allergies Osteoporosis Home Medications ???Medication ???Instructions ???Recorded ???Last Taken ???Type levothyroxine 25 mcg tablet 25 mcg PO DAILY #1 TAB 05/18/20 Un known Rx alendronate 70 mg/75 mL oral 70 mg PO QWEEK 03/14/21 Unknown Hi story solution escitalopram oxalate 10 mg tablet 10 mg PO DAILY DEPRESSION 5 Unknown History rosuvastatin 10 mg tablet 10 mg PO QHS CHOLESTEROL 01/25/25 Unknown History Allergy/AdvReac Type Severity Reaction Status Date / Time amoxicillin Allergy Unknown Verified 01/24/25 09:15 Penicillins (PCN) Allergy Unknown Verified 01/24/25 09:15 Family History Other Asthma Social History Smoking Status: Never smoker alcohol intake: never substance use type: does not use Physical Exam Const alert and no apparent distress General Appearance: cooperative HEENT normocephalic and head/scalp atraumatic Eyes PERRL and EOMs intact bilaterally Neck supple and No nodes Resp normal air movement and clear to auscultation bilaterally Cardio regular rate and regular rhythm GI soft to palpation, non-tender and non-distended Extremity General Extremity: edema Skin Skin Narrative: R wrist swelling, warmth, tenderness Neuro CN's II-XII intact bilaterally Lab / Micro Data Attestation: I reviewed the patient's lab results. 01/26/25 03:00 01/26/25 03:00 Labs: Laboratory Results - last 24 hr 01/24/25 12:50: Fluid Crystals CALCIUM PYROPHOS, Synovial Path Comment Reviewed 01/26/25 03:00: WBC 10.4, RBC 3.85 L, Hgb 11.0 L, Hct 33.3 L, MCV 86.5, MCH 28.6, MCHC 33.0, RDW Std Deviation 46.0 H, RDW Coeff of [place] 14.5, Plt Count 185, MPV 11.6, Immature Gran % (Auto) 0.300, Neut % (Auto) 67.8, Lymph % (Auto) 19.1, [place] % (Auto) 12.3 H, Eos % (Auto) 0.3, Baso % (Auto) 0.2, Absolute Neuts (auto) 7.1, Absolute Lymphs (auto) 1.99, Nucleated RBC % 0, Sodium 138, Potassium 3.8, Chloride 106, Carbon Dioxide 23.9, Anion Gap 8, BUN 16, Creatinine 0.61 L, Estim Creat Clear Calc 46.26 L, Est GFR (MDRD) Non-Af 88, BUN/Creatinine Ratio 25.3 H, Glucose 102 H, Calcium 8.3, Vancomycin Trough 8.0 Micro: Microbiology 01/24/25 12:50 Fluid - Synovial (joint) Gram Stain - Final 01/24/25 12:50 Fluid - Synovial (joint) Body Fluid Culture - Preliminary No growth-Final to follow 01/24/25 12:50 Fluid - Synovial (joint) Anaerobic Culture - Preliminary No growth in 48 hours. 01/26/25 5436 Cosigner Signature (if applicable): CC: Dr. Ashley Roberson MD Signed Normal [facility] Crystals, Body Fluidon 01-26 CRYSTALS/BF CALCIUM PYROPHOS Normal [facility] Comment on above: Result Comment: CR YSTAL RESULT IS PRELIMINARY. SEE PATH REVIEW FOR FINAL REPORT. AMENDED REPORT 01/26/25 9202 CRYSTALS/BF previously reported as: NO CRYSTALS SEEN Performed By: #### L 500.2500, L100.0100 #### [facility] [address] [place], [address] Culture, Anaerobic Any Sourc lizzie 01-26-2025 CUAN n/a . No anaerobic bacteria isolated. Normal [facility] Comment on above: Performed By: #### L 500.2500, L100.0100 #### [facility] [address] [place], [address] Synovial Fluid RBC, WBC AND Diffon 01-26-2025 PATH COM/SYFL Reviewed Normal [facility] Comment on above: Result Comment: ACUT E INFLAMMATION. CRYSTALS CONSISTENT WITH CALCIUM PYROPHOSPHATE AND A FEW CRYSTALS SUGGESTIVE OF URIC ACID ARE PRESENT. Candelraia Alexander MD 01/26/2025 AMENDED REPORT 01/26/25 1155 PATH COM/SYFL previously reported as: May follow Performed By: #### L 500.2500, L100.0100 #### [facility] [address] [place], [address] Trough vancomycin levelOrder ed By: Brice Avila on 01-26-2025 Vancomycin trough [Mass/Vol] 8.0 ug/mL 5.0-15.0 [facility] Comment on above: Recommended goal tro ugh ranges are generally 10-15 mcg/ml for less severe/complicated infections such as cellulitis or UTI and 15-20 mcg/ml for more severe/complicated infections such as bacteremia/sepsis, osteomyelitis, pneumonia or meningitis. Goal trough ranges should take into account indication, patient-specific factors and organism HODA.VANCOMYCIN STANDARED DRUG THERAPY TROUGH LEVEL: 5.0 - 15.0 mg/L VANCOMYCIN HIGH INTENSITY THERAPY TROUGH LEVEL: 15.0 - 20.0 mg/L High Intensity therapy recommended for serious lifethreatening infections include:- Kfzyxbbebh-Xdbxauykezqd-Vkndupqak (Ventilator/Healtcare Associated)-Sepsis PLEASE CONTACT PHARMACY SERVICES (#[id number]) FOR INTERPRETATIONOF RESULTS. Vancomycin, Trough Levelon VANCO, TROUGH 8.0 ug/mL Normal 5.0-15.0 [facility] Comment on above: Order Comment: Comme nts: Trough to be drawn 30 mins prior to scheduled dose 0330 Result Comment: Fernando mmended goal trough ranges are generally 10-15 mcg/ml for less severe/complicated infections such as cellulitis or UTI and 15-20 mcg/ml for more severe/complicated infections such as bacteremia/sepsis, osteomyelitis, pneumonia or meningitis. Goal trough ranges should take into account indication, patient-specific factors and organism HODA. VANCOMYCIN STANDARED DRUG THERAPY TROUGH LEVEL: 5.0 - 15.0 mg/L VANCOMYCIN HIGH INTENSITY THERAPY TROUGH LEVEL: 15.0 - 20.0 mg/L High Intensity therapy recommended for serious life threatening infections include: - Meningitis -Endocarditis -Pneumonia (Ventilator/Healtcare Associated) -Sepsis PLEASE CONTACT PHARMACY SERVICES (#[id number]) FOR INTERPRETATION OF RESULTS. Performed By: #### L 501.8820 #### [facility] [address] [place], [address] 12 Lead EKGon 01-25-2025 12 Lead EKG [facility] Services [address] [place] [address] 12 Lead EKG 01/25/25 0439 MR#: [id number] Acct: [id number] Name: FIONA GRUBER Rep #: [id number] : 1940 84 From: Alec Jack MD Attending Dr: Dr. Jonah Mckoy, Status: DIS IN Ordering Dr: Jonah White MD Date: 01/25/25 Location: [facility] [place] Sex: F C Admitted: 01/24/25 Test Reason : AM EKG Blood Pressure : */* mmHG Vent. Rate : 85 BPM Atrial Rate : 85 BPM P-R Int : 126 ms QRS Dur : 146 ms QT Int : 432 ms P-R-T Axes : 81 60 53 degrees QTcB Int : 514 ms Normal sinus rhythm Right bundle branch block Abnormal ECG When compared with ECG of 14-Mar-2021 20:00, No significant change was found Confirmed by Alec Jack ([id number]), desk editor JAYY SOSA ([id number]) on 01/28/2025 9:16:53 AM Referred By: MAHIN Confirmed By: Alec Jack 01/28/25 0916 Date Alec Jack MD CC: Dr. Ashley Roberson MD; Dr. Jonah White MD; Dr. Jonah Mckoy DO Signed Normal [facility] Basic Metabolic Profile (BMP )on 01-25-2025 BUN/CRE 21.8 RATIO High 01-26 [facility] Comment on above: Performed By: #### L 500.2500, L100.0100 #### [facility] [address] [place], [address] Calcium [Mass/Vol] 8.7 mg/dL Normal 7.6-11.0 [facility] Comment on above: Performed By: #### L 500.2500, L100.0100 #### [facility] [address] [place], [address] Chloride [Moles/Vol] 105 mmol/L Normal 98-108 [facility] Comment on above: Performed By: #### L 500.2500, L100.0100 #### [facility] [address] [place], [address] CO2 [Moles/Vol] 21.3 mmol/L Normal 21.0-32.0 [facility] Comment on above: Performed By: #### L 500.2500, L100.0100 #### [facility] [address] [place], [address] Creatinine [Mass/Vol] 0.62 mg/dL Low 0.70-1.20 [facility] Comment on above: Performed By: #### L 500.2500, L100.0100 #### [facility] [address] [place], [address] ECRCL 46.26 ml/min Low 50-250 [facility] Comment on above: Performed By: #### L 500.2500, L100.0100 #### [facility] [address] [place], [address] GAP 12 Normal 5-15 [facility] Comment on above: Performed By: #### L 500.2500, L100.0100 #### [facility] [address] [place], [address] GFR/1.73 sq M.predicted among non-blacks MDRD (S/P/Bld) [Vol rate/Area] 88 mL/min/{1.73_m2} Normal >60 [facility] Comment on above: Result Comment: mL/m in/1.73m2 CKD-EPI Creatinine Equation (2020) Performed By: #### L 500.2500, L100.0100 #### [facility] [address] [place], [address] Glucose [Mass/Vol] 105 mg/dL High 70-99 [facility] Comment on above: Performed By: #### L 500.2500, L100.0100 #### [facility] [address] [place], [address] Potassium [Moles/Vol] 3.6 mmol/L Normal 3.3-5.1 [facility] Comment on above: Performed By: #### L 500.2500, L100.0100 #### [facility] [address] [place], [address] Sodium [Moles/Vol] 138 mmol/L Normal 133-145 [facility] Comment on above: Performed By: #### L 500.2500, L100.0100 #### [facility] [address] [place], [address] Urea nitrogen [Mass/Vol] 14 mg/dL Normal 4-19 [facility] Comment on above: Performed By: #### L 500.2500, L100.0100 #### [facility] [address] [place], [address] Blood manual differential co mment interpretation (narrative result)Ordered By: Brice Avila on 01-25-2025 Manual differential comment Philip (Bld) [Interp] SCANNED [facility] Body Fluid Culton 01-25-2025 BFC n/a . Culture exhibits no growth. Normal [facility] Comment on above: Performed By: #### L 500.2500, L100.0100 #### [facility] [address] [place], [address] CBC W/Diff, Automatedon 01-07 SMEAR COMMENT SCANNED Normal [facility] Comment on above: Performed By: #### L 100.0100 #### [facility] [address] [place], [address] Consultation - Orthopedicson 01-25-2025 Consultation - Orthopedics [facility] Medical Records Department [address] [place] [address] Consultation - Orthopedics 01/25/25 0840 MR#: [id number] Acct: [id number] Name: FIONA GRUEBR Rep #: [id number] : 1940 84 From: Lico Chance DO PCP: Dr. Ashley Roberson MD Status:ADM IN Location: [place] [address] HPI Consult Data Date of Consult: 01/25/25 HPI Narrative Reason for Consultation: Concern for right wrist septic arthritis HPI Narrative: FIONA GRUBER, is a 84 F who presented to [facility] emergency department 01/24/2025 with 1 day of right wrist pain and redness, swelling. Denies any injury predating the symptoms other than a nevus on the dorsal wrist that patient tends to pick at. Past medical history significant for CKD, osteopenia, dementia. Patient was seen in the emergency department by the ED physician and an arthrocentesis was performed. I saw patient in the emergency department yesterday and recommended admission with IV antibiotics and elevation of the right hand with possible surgery today. I evaluated the patient again this morning. Pain is improved and not present at rest. Her range of motion is slightly improving. She denies any fevers, chills, nausea vomiting, chest pain or shortness of breath. [facility] Medical History Hyperparathyroidism HTN (hypertension) Hypercalcemia Hearing disorder History of back problems Arthritis Allergies Osteoporosis Home Medications ???Medication ???Instructions ???Recorded ???Last Taken ???Type levothyroxine 25 mcg tablet 25 mcg PO DAILY #1 TAB 05/18/20 Un known Rx alendronate 70 mg/75 mL oral 70 mg PO QWEEK 03/14/21 Unknown Hi story solution escitalopram oxalate 10 mg tablet 10 mg PO DAILY DEPRESSION 5 Unknown History rosuvastatin 10 mg tablet 10 mg PO QHS CHOLESTEROL 01/25/25 Unknown History Allergy/AdvReac Type Severity Reaction Status Date / Time amoxicillin Allergy Unknown Verified 01/24/25 09:15 Penicillins (PCN) Allergy Unknown Verified 01/24/25 09:15 Family History Other Asthma Social History Smoking Status: Never smoker alcohol intake: never substance use type: does not use ROS ROS Narrative 12 point review systems obtained, negative unless otherwise noted in HPI. Vital Signs Vital Signs Vital Signs: 01/24/25 09:12 01/24/25 13:12 01/24/25 16:15 Temperature 98.4 F 98.5 F Temperature Source Oral Pulse Rate 104 H 90 98 Pulse Strength Respiratory Rate 14 18 18 Respiratory Effort Respiratory Depth Respiratory Pattern Blood Pressure 130/76 H 153/80 H 141/77 H Blood Pressure Mean 94 104 98 Blood Pressure Source Blood Pressure Position Blood Pressure Location Pulse Ox 95 95 99 Oxygen Delivery Method Room Air Room Air 01/24/25 16:17 01/24/25 17:21 01/24/25 17:46 Temperature 98.5 F 98.3 F Temperature Source Oral Oral Pulse Rate 95 100 Pulse Strength Respiratory Rate 18 16 Respiratory Effort Normal Non-Labored Respiratory Depth Normal Respiratory Pattern Normal Blood Pressure 141/77 H 159/79 H Blood Pressure Mean 98 105 Blood Pressure Source Monitor Blood Pressure Position Semi-Fowlers Blood Pressure Location Left Arm Pulse Ox 99 95 Oxygen Delivery Method Room Air Room Air Room Air 01/24/25 19:59 01/24/25 20:05 01/25/25 02:05 Temperature 98.1 F 98.5 F Temperature Source Oral Oral Pulse Rate 93 86 Pulse Strength Respiratory Rate 16 16 Respiratory Effort Normal Non-Labored Respiratory Depth Normal Respiratory Pattern Normal Blood Pressure 124/61 H 116/69 Blood Pressure Mean 82 84 Blood Pressure Source Monitor Monitor Blood Pressure Position Semi-Fowlers Semi-Fowlers Blood Pressure Location Left Arm Left Arm Pulse Ox 95 96 Oxygen Delivery Method Room Air Room Air Room Air 01/25/25 08:34 Temperature Temperature Source Pulse Rate Pulse Strength Normal (2+) Respiratory Rate Respiratory Effort Respiratory Depth Respiratory Pattern Blood Pressure Blood Pressure Mean Blood Pressure Source Blood Pressure Position Blood Pressure Location Pulse Ox Oxygen Delivery Method Weight Weight: 123 lb 6.4 oz Body Mass Index (BMI) 20.5 Physical Exam Narrative General -A Ox3, NAD, appears stated age. Vital signs stable, afebrile. Respiratory -normal work of breathing, no intercostal retractions. CV -pulses regular, brisk capillary refill ???4 limbs. Abdomen-soft, nontender, nondistended. No guarding, rigidity, rebound tenderness. Musculoskeletal/neurol ogic -full range of m (more content not included)... Normal [facility] TSH DL <= 0.005 mIU/L QnOrde red By: Jonah White on 01-25-2025 TSH Qn 2.050 uIU/mL 0.300-4.200 [facility] Thyroid Stim Hormone (TSH)on 01-25-2025 TSH 2.050 uIU/mL Normal 0.300-4.200 [facility] Comment on above: Performed By: #### L 500.2500, L100.0100 #### [facility] [address] [place], [place] [address] [place], [place], [id number] Anaerobic cultureOrdered By: Dereck Warner on 01-24-2025 Bacteria identified Anaer cx Nom (Unsp spec) No anaerobic bacteria isolated. [facility] Automated synovial fluid mon onuclear cell count (number/volume)Ordered By: Dereck Warner on 01-24-2025 Mononuclear cells Auto (Syn fld) [#/Vol] 6.092 10^3/ul [facility] Automated synovial fluid edward ymorphonuclear cell count (number/volume)Ordered By: Dereck Warner on 01-24-2025 Polymorphonuclear cells Auto (Syn fld) [#/Vol] 35.746 10^3/uL [facility] Automated synovial fluid edward ymorphonuclear cells as percentage of leukocytesOrdered By: Dereck Warner on 01-24-2025 Polymorphonuclear cells/100 WBC Auto (Syn fld) 85.4 % [facility] Basic Metabolic Profile (BMP )on 01-24-2025 BUN/CRE 18.1 RATIO Normal 10-20 [facility] Comment on above: Performed By: #### L 501.1400, L501.6710, L503.6005, L101.9900, L500.2500, L100.0100 #### [facility] [address] [place], [address] Calcium [Mass/Vol] 9.1 mg/dL Normal 7.6-11.0 [facility] Comment on above: Performed By: #### L 501.1400, L501.6710, L503.6005, L101.9900, L500.2500, L100.0100 #### [facility] [address] [place], [address] Chloride [Moles/Vol] 103 mmol/L Normal 98-108 [facility] Comment on above: Performed By: #### L 501.1400, L501.6710, L503.6005, L101.9900, L500.2500, L100.0100 #### [facility] [address] [place], [address] CO2 [Moles/Vol] 21.9 mmol/L Normal 21.0-32.0 [facility] Comment on above: Performed By: #### L 501.1400, L501.6710, L503.6005, L101.9900, L500.2500, L100.0100 #### [facility] [address] [place], [address] Creatinine [Mass/Vol] 0.77 mg/dL Normal 0.70-1.20 [facility] Comment on above: Performed By: #### L 501.1400, L501.6710, L503.6005, L101.9900, L500.2500, L100.0100 #### [facility] [address] [place], [address] ECRCL 46.26 ml/min Low 50-250 [facility] Comment on above: Performed By: #### L 501.1400, L501.6710, L503.6005, L101.9900, L500.2500, L100.0100 #### [facility] [address] [place], [address] GAP 13 Normal 5-15 [facility] Comment on above: Performed By: #### L 501.1400, L501.6710, L503.6005, L101.9900, L500.2500, L100.0100 #### [facility] [address] [place], [address] GFR/1.73 sq M.predicted among non-blacks MDRD (S/P/Bld) [Vol rate/Area] 76 mL/min/{1.73_m2} Normal >60 [facility] Comment on above: Result Comment: mL/m in/1.73m2 CKD-EPI Creatinine Equation (2020) Performed By: #### L 501.1400, L501.6710, L503.6005, L101.9900, L500.2500, L100.0100 #### [facility] [address] [place], [address] Glucose [Mass/Vol] 139 mg/dL High 70-99 [facility] Comment on above: Performed By: #### L 501.1400, L501.6710, L503.6005, L101.9900, L500.2500, L100.0100 #### [facility] [address] [place], [address] Potassium [Moles/Vol] 4.0 mmol/L Normal 3.3-5.1 [facility] Comment on above: Performed By: #### L 501.1400, L501.6710, L503.6005, L101.9900, L500.2500, L100.0100 #### [facility] [address] [place], [address] Sodium [Moles/Vol] 138 mmol/L Normal 133-145 [facility] Comment on above: Performed By: #### L 501.1400, L501.6710, L503.6005, L101.9900, L500.2500, L100.0100 #### [facility] [address] [place], [address] Urea nitrogen [Mass/Vol] 14 mg/dL Normal 4-19 [facility] Comment on above: Performed By: #### L 501.1400, L501.6710, L503.6005, L101.9900, L500.2500, L100.0100 #### [facility] [address] [place], [address] Bilirubin Test strip Ql (U)O rdered By: Dereck Warner on 01-24-2025 Bilirubin Ql (U) Negative Negative [facility] Blood lymphocytes/100 leukoc ytesOrdered By: Dereck Warner on 01-24-2025 Lymphocytes/100 WBC (Bld) 1 % [facility] Body Fluid Cell Count+Diffon 01-24-2025 APPEAR/BF Normal [facility] Comment on above: Performed By: #### L 500.2500, L100.0100 #### [facility] [address] [place], [address] COLOR/BF Normal [facility] Comment on above: Performed By: #### L 500.2500, L100.0100 #### [facility] [address] [place], [address] BFTC# Normal [facility] Comment on above: Result Comment: This is the Total Number of Nucleated Cell Types in the Body Fluid. Performed By: #### L 500.2500, L100.0100 #### [facility] [address] [place], [address] WBC/BF Normal [facility] Comment on above: Performed By: #### L 500.2500, L100.0100 #### [facility] [address] [place], [address] BF MN WBC# Normal [facility] Comment on above: Performed By: #### L 500.2500, L100.0100 #### [facility] [address] [place], [address] BF MN WBC% Normal [facility] Comment on above: Performed By: #### L 500.2500, L100.0100 #### [facility] [address] [place], [address] BF PMN WBC# Normal [facility] Comment on above: Performed By: #### L 500.2500, L100.0100 #### [facility] [address] [place], [address] BF PMN WBC% Normal [facility] Comment on above: Performed By: #### L 500.2500, L100.0100 #### [facility] [address] [place], [address] RBC/BF Normal [facility] Comment on above: Performed By: #### L 500.2500, L100.0100 #### [facility] [address] [place], [address] qBKG ANALYZ OK? Normal [facility] Comment on above: Performed By: #### L 500.2500, L100.0100 #### [facility] [address] [place], [address] Body fluid crystal identific ation by light microscopyOrdered By: Dereck Warner on 01-24-2025 Crystals LM Nom (Body fld) CALCIUM PYROPHOS [facility] Comment on above: Previous reported re sult: NO CRYSTALS SEEN Edited by: HERMINIA on 01/26/25:1452 AMENDED REPORT 01/26/25 1452 CRYSTALS/BF previously reported as: NO CRYSTALS SEEN CRYSTAL RESULT IS PRELIMINARY. SEE PATH REVIEW FOR FINAL REPORT. Body fluid cultureOrdered By : Dereck Warner on 01-24-2025 Microbial culture, body fluid Culture exhibits no growth. [facility] Brain/Head without Contrasto n 01-24-2025 Brain/Head without Contrast [facility] Imaging Services [address] [place] [address] Brain/Head without Contrast MR#: [id number] Acct: [id number] Name: FIONA GRUBER Rep #: [id number] : 1940 F 84 From: Eder Bermudez MD PCP: Dr. Ashley Roberson MD Status: REG ER Study: Brain/Head without Contrast Date of Exam: 01/07 12/01 Exam# [id number] Ordering Dr: Dereck Warner MD PROCEDURE: BRAIN/HEAD WITHOUT CONTRAST 01/24/2025 REASON FOR EXAM: CONFUSION, HX CAA TECHNIQUE: Procedure Code: CTBR Modality: CT Procedure: BRAIN/HEAD WITHOUT CONTRAST Coronal and Sagittal reconstruction series were provided. One or more dose reduction techniques were used (e.g., Automated exposure control, adjustment of the mA and/or kV according to patient size, use of iterative reconstruction technique. RADIATION DOSE SUMMARY: CTDlvol: 44.99 mGy DLP: 796.11 mGycm COMPARISON: None. FINDINGS: Brain: Extensive low density in the deep cerebral white matter most likely represents advanced chronic small vessel ischemic disease. No acute territorial infarction. No acute intracranial hemorrhage. No mass-effect or midline shift. CSF Spaces: Mild generalized cerebral atrophy Sinuses/Mastoids: Clear. Bones: No acute bony abnormalities. CT/Brain/Head without Contrast IMPRESSION: No acute intracranial abnormalities. Reading Location: [facility] CC: Dr. Dereck Warner MD; Dr. Ashley Roberson MD Neonatologist: Signed Normal [facility] CBC W/Diff, Automatedon 01-07 SMEAR COMMENT SCANNED Normal [facility] Comment on above: Performed By: #### L 501.1400, L501.6710, L503.6005, L101.9900, L500.2500, L100.0100 #### [facility] [address] [place], [address] CRPon 01-24-2025 C-REACTIVE PROT 86.90 mg/L High 0.0-3.0 [facility] Comment on above: Performed By: #### L 501.1400, L501.6710, L503.6005, L101.9900, L500.2500, L100.0100 #### [facility] [address] [place], [address] Determination of appearance of synovial fluid (nominal result)Ordered By: Dereck Warner on 01-24-2025 Appearance (Syn fld) Cloudy CLEAR [facility] [facility] Emergency Department Summary on 01-24-2025 Emergency Department Summary [facility] Medical Records Department [address] [place] [address] Emergency Department Summary 01/24/25 MR#: [id number] Acct: [id number] Name: FIONA GRUBER Rep #: [id number] : 1940 84 From: Dereck Warner MD PCP: Dr. Ashley Roberson MD Status:REG ER Location: ED HPI History of Present Illness Chief Complaint: Upper Extremity Injury Informant: patient and spouse/S.O. Narrative Narrative: Patient is an 84-year-old female with a history of dementia, presenting with acute right wrist pain and swelling. Patient is accompanied by who is supplementing history. - Onset of symptoms began last night. - No known trauma or injury to the wrist. - Family member reports patient has been picking at a mole on the wrist. - Severe pain with movement and palpation; unable to move wrist without significant discomfort. - Observed a linear area of erythema on the volar forearm last night. - Denies fever. - No history of gout or similar joint issues. - No history of DM or use of immunosuppressants. - Takes pravastatin and a thyroid medication. PFSH [facility] Medical History Hyperparathyroidism HTN (hypertension) Hypercalcemia Hearing disorder History of back problems Arthritis Allergies Osteoporosis Home Medications ???Medication ???Instructions ???Recorded ???Last Taken ???Type magnesium 30 mg tablet 1,000 mg PO DAILY 12/23/19 Unknown History levothyroxine 25 mcg tablet 25 mcg PO DAILY #1 TAB 05/18/20 Un known Rx alendronate 70 mg/75 mL oral 70 mg PO QWEEK 03/14/21 Unknown Hi story solution Allergy/AdvReac Type Severity Reaction Status Date / Time amoxicillin Allergy Unknown Verified 01/24/25 09:15 Penicillins (PCN) Allergy Unknown Verified 01/24/25 09:15 Family History Other Asthma Social History Smoking Status: Never smoker alcohol intake: never substance use type: does not use ROS ROS ED Review of Systems ROS Unobtainable: other Details: Limited due to dementia Constitutional Constitutional ED: Denies chills or fever(s) Cardiovascular Cardiovascular: Denies chest pain Respiratory/Chest Respiratory/Chest: Denies dyspnea Gastrointestinal Gastrointestinal: Denies abdominal pain, nausea or vomiting Musculoskeletal Musculoskeletal: Reports extremity pain; Denies back pain or neck pain Integumentary Reports rash Neurologic Neurologic: Denies headache(s), paresthesias or weakness EXAM Physical Exam Const Vital Signs: 01/24/25 09:12 Temperature 98.4 F Temperature Source Oral Pulse Rate 104 H Respiratory Rate 14 Blood Pressure 130/76 H Blood Pressure Mean 94 Pulse Ox 95 Oxygen Delivery Method Room Air Positive well nourished and well developed General Appearance ED: well developed and NAD Eyes PERRL and EOMs intact bilaterally Neck full ROM and supple Back/Spine normal ROM and normal to inspection Extremity Extremity Narrative: Very limited range of motion of the right wrist, any passive range of motion the patient jerks in pain and has trouble moving it. Tender swollen erythema over the dorsum of the right wrist mainly. No clear spreading up the forearm although there is some faint erythema at the volar right forearm but not dorsally. No epitrochlear lymphadenopathy. Full range of motion of the elbow and shoulder without difficulty. Neuro no focal motor deficits and no sensory deficits noted Neuro Narrative: Disoriented, at baseline per spouse Sensorium / Orientation: alert Psych mental status grossly normal Skin no wounds Skin Narrative: Warm swollen erythema without fluctuance/abscess or obvious nidus for infection over the dorsum of the right wrist, mildly at the volar aspect, there is some mild erythema in the volar forearm, but no clear lymphangitis/streaking . MDM MDM MDM Narrative Medical decision making narrative: Concern here is for a monoarthritis of the right wrist. It is possible this could be cellulitis, but there is no induration, and the small mole lesion on the dorsum of the wrist, although within the area of erythema, does not appear different from other areas or necessarily infected. Therefore, I am less inclined to think this is cellulitis. Furthermore, the patient is reluctant to move the wrist at all, and any slight passive movement causes significant discomfort. I believe the joint should be evaluated for the possibility of infection versus an inflammatory monoarthritis. We obtained x-rays (three views of the right wrist), which show no acute fracture on my interpretation, and labs. The labs are notable for a leukocytosis of 14.4 with a leftward shift but no ba (more content not included)... Normal [facility] Erythrocyte Sed Rateon 01-24 SED RATE 61 mm/hr High 0-30 [facility] Comment on above: Performed By: #### L 501.1400, L501.6710, L503.6005, L101.9900, L500.2500, L100.0100 #### [facility] [address] [place], [address] Erythrocyte sedimentation ra teOrdered By: Dereck Warner on 01-24-2025 ESR (Bld) [Velocity] 61 mm/h High 0-30 [facility] Gram Stainon 01-24-2025 GS n/a Centrifuged Specimen? Unable to centrifuge specimen due to insufficient volume. Gram Stain 4+ Red Blood Cells 1+ White Blood Cells No organisms seen Normal [facility] Comment on above: Performed By: #### L 500.2500, L100.0100 #### [facility] [address] [place], [address] Gram stainOrdered By: Dillon Warner on 01-24-2025 Microscopic observation Gram stain Nom (Unsp spec) [facility] H AND P Exam - Hospitaliston 01-24-2025 H&P Exam - Hospitalist [facility] Medical Records Department [address] [place] [address] H P Exam - Hospitalist 01/24/25 1909 MR#: [id number] Acct: [id number] Name: FIONA GRUBER Rep #: [id number] : 1940 84 From: Brice Avila DO PCP: Dr. Ashley Roberson MD Status:ADM IN Location: [facility] [place] [facility] [id number] HPI - General General Date of Admission: 01/24/25 Date of Service: 01/24/25 Chief Complaint: Right wrist pain and swelling with redness HPI Narrative FIONA GRUBER, is a 84 F who presents to the emergency room at [facility] with complaints of right wrist swelling, pain, and redness. The is providing medical history as the patient has dementia and is not able to provide any information. It is unknown whether the patient had an injury to the wrist, she had been picking at skin on a mole on her wrist recently according to the . Workup in the emergency room included x-rays of the right wrist which shows soft tissue swelling and possible widening of the joint space which could be due to projection or ligamentous injury. White blood cell count was 14.4, chemistry profile was unremarkable. Arthrocentesis of the right wrist was performed in the emergency room and 1 cc of bloody fluid was obtained for testing. I asked that a PCR be sent to rule out staph. The case was discussed with Dr. Chance who came to the ER to evaluate the patient, he advised admitting the patient for IV antibiotic treatment and possible washout of the right wrist tomorrow. Patient will be admitted to [facility] 3, I discussed CODE STATUS with the patient's -she is a DNR CC arrest no intubation. [facility] Medical History Hyperparathyroidism HTN (hypertension) Hypercalcemia Hearing disorder History of back problems Arthritis Allergies Osteoporosis Home Medications ???Medication ???Instructions ???Recorded ???Last Taken ???Type magnesium 30 mg tablet 1,000 mg PO DAILY 12/23/19 Unknown History levothyroxine 25 mcg tablet 25 mcg PO DAILY #1 TAB 05/18/20 Un known Rx alendronate 70 mg/75 mL oral 70 mg PO QWEEK 03/14/21 Unknown Hi story solution Allergy/AdvReac Type Severity Reaction Status Date / Time amoxicillin Allergy Unknown Verified 01/24/25 09:15 Penicillins (PCN) Allergy Unknown Verified 01/24/25 09:15 Family History Other Asthma Social History Smoking Status: Never smoker alcohol intake: never substance use type: does not use ROS ROS Narrative Review of systems was unobtainable due to patient's dementia Vital Signs Vital Signs Vital Signs: 01/24/25 09:12 01/24/25 13:12 01/24/25 16:15 Temperature 98.4 F 98.5 F Temperature Source Oral Pulse Rate 104 H 90 98 Respiratory Rate 14 18 18 Respiratory Effort Respiratory Depth Respiratory Pattern Blood Pressure 130/76 H 153/80 H 141/77 H Blood Pressure Mean 94 104 98 Blood Pressure Source Blood Pressure Position Blood Pressure Location Pulse Ox 95 95 99 Oxygen Delivery Method Room Air Room Air 01/24/25 16:17 01/24/25 17:21 01/24/25 17:46 Temperature 98.5 F 98.3 F Temperature Source Oral Oral Pulse Rate 95 100 Respiratory Rate 18 16 Respiratory Effort Normal Non-Labored Respiratory Depth Normal Respiratory Pattern Normal Blood Pressure 141/77 H 159/79 H Blood Pressure Mean 98 105 Blood Pressure Source Monitor Blood Pressure Position Semi-Fowlers Blood Pressure Location Left Arm Pulse Ox 99 95 Oxygen Delivery Method Room Air Room Air Room Air Weight Weight: 55.973 kg Body Mass Index (BMI) 20.5 Physical Exam Const alert Constitutional Narrative: Patient is alert but confused, she appears comfortable at this time, patient appears somewhat cachectic General Appearance: cooperative, well kempt and well developed Orientation / Consciousness: awake and confused HEENT normocephalic, head/scalp atraumatic, hearing grossly normal bilaterally and moist oral mucous membranes Eyes PERRL, EOMs intact bilaterally and conjunctivae normal Neck supple, no JVD, thyroid normal and no carotid bruits General: trachea midline Resp normal respiratory effort, no retractions, no use of accessory muscles and clear to auscultation bilaterally Auscultation: Negative for rales, rhonchi or wheezes Cardio regular rate, regular rhythm, S1 normal heart sound, S2 normal heart sound, no murmurs, no rub and no gallops GI normal to inspection, nondistended, normoactive bowel sounds, soft to palpation, non-tender and non- distended Extremity Extremity Narrative: There is a significant amount of edema in the right wrist along wi (more content not included)... Normal [facility] Ketones Test strip Ql (U)Ord ered By: Dereck Warner on 01-24-2025 Ketones Ql (U) 150 mg/dl Negative [facility] Comment on above: CRITICAL VALUE *HCRI TICAL VALUE CALLED TO CORNEL ESPINOSA01/24/25 1252 Anil Narayanan.RESULTS READ BACK BY SAME. Lactic Acidon 01-24-2025 Lactate [Moles/Vol] mmol/L Normal 0.0-2.0 [facility] Comment on above: Order Comment: Y Performed By: #### L 501.1400, L501.6710, L503.6005, L101.9900, L500.2500, L100.0100 #### [facility] [address] [facility] [place], [place], [address] Lactic acid measurementOrder ed By: Dereck Warner on 01-24-2025 Lactate [Moles/Vol] mmol/L 0.0-2.0 [facility] M R Staph Aureus DNA by PCRo n 01-24-2025 MRSA DNA ASSAY Normal Negative [facility] Comment on above: Order Comment: on sy novial fluid Result Comment: COY Hernandez ORDER, CHANGED PER CRISSY GATICA Performed By: #### L 500.2500, L100.0100 #### [facility] [address] [facility] [place], [address] PROBE CHECK Normal [facility] Comment on above: Order Comment: on sy novial fluid Result Comment: WRON G ORDER, CHANGED PER CRISSY EN Performed By: #### L 500.2500, L100.0100 #### [facility] [address] [place], [address] SPC Normal [facility] Comment on above: Order Comment: on sy novial fluid Result Comment: COY G ORDER, CHANGED PER CRISSY GATICA Performed By: #### L 500.2500, L100.0100 #### [facility] [address] [place], [address] M8200.1075on 01-24-2025 M8200.1075 on synovial fluid Normal Reference Range = Negative MRSA/SAUR WOUND PCR GeneXpert Instrument, PCR method MRSA PCR MRSA NEGATIVE STAPH. AUREUS PCR STAPH. AUREUS NEGATIVE Normal [facility] Comment on above: Performed By: #### L 500.2500, L100.0100 #### [facility] [address] [place], [address] Microscopic analysis of urin e for red blood cells (RBC)Ordered By: Dereck Warner on 01-24-2025 Microscopic analysis of urine for red blood cells (RBC) 5-10 SEEN /hpf 0-5 [facility] Mucus LM Ql (Urine sed)Order ed By: Dereck Warner on 01-24-2025 Mucus Ql (Urine sed) 0 SEEN /hpf [facility] Nitrite Test strip Ql (U)Ord ered By: Dereck Warner on 01-24-2025 Nitrite Ql (U) Negative Negative [facility] Pathologist review of result s (narrative result)Ordered By: Dereck Warner on 01-24-2025 Pathologist review Philip (Unsp spec) [Interp] Reviewed [facility] Comment on above: Previous reported re sult: May follow Edited by: JUAN on 01/26/25:1155ACUTE INFLAMMATION.CRYSTALS CONSISTENT WITH CALCIUM PYROPHOSPHATE AND A FEW CRYSTALS SUGGESTIVE OF URIC ACID ARE PRESENT.Candelaria Alexander MD 01/26/2025 AMENDED REPORT 01/26/25 1155 PATH COM/SYFL previously reported as: May follow Protein Test strip Ql (U)Ord ered By: Dereck Warner on 01-24-2025 Protein Ql (U) 30 mg/dl High Negative [facility] Serum or plasma C reactive p rotein measurement (mass/volume)Ordered By: Dereck Warner on 01-24-2025 CRP [Mass/Vol] 86.90 mg/L High 0.0-3.0 [facility] Serum or plasma uric acid me asurement (mass/volume)Ordered By: Dereck Warner on 01-24-2025 Urate [Mass/Vol] 4.2 mg/dL 2.6-6.0 [facility] Comment on above: The drugs N-Acetylcy steine and Metamizole may falsely depress this assay. Specimen source identificati on of body fluidOrdered By: Dereck Warner on 01-24-2025 Specimen source Nom (Body fld) SYNOVIAL [facility] Specimen source Nom (Body fld) RIGHT WRIST [facility] Squamous epithelial cells de tection in urine sediment by light microscopyOrdered By: Dereck Warner on 01-24-2025 Epithelial cells.squamous LM Ql (Urine sed) 0-5 SEEN /hpf 5-10 [facility] Synovial fluid color determi nation (nominal result)Ordered By: Dereck Warner on 01-24-2025 Color (Syn fld) Red Pale Yellow [facility] Synovial fluid erythrocytes count (number/volume)Ordered By: Dereck Warner on 01-24-2025 RBC (Syn fld) [#/Vol] 0.657 10^6/uL High 0-0 [facility] Synovial fluid leukocytes co unt (number/volume)Ordered By: Dereck Warner on 01-24-2025 WBC (Syn fld) [#/Vol] 42.9700 10^3/uL High 0.000-0.0 02 [facility] Synovial fluid monocyte perc entageOrdered By: Dereck Warner on 01-24-2025 Monocytes/100 WBC (Syn fld) 9 % [facility] Synovial fluid mononuclear c ells/100 leukocytesOrdered By: Dereck Warner on 01-24-2025 Mononuclear cells/100 WBC (Syn fld) 14.6 % [facility] Synovial fluid neutrophil pe rcentageOrdered By: Dereck Warner on 01-24-2025 Neutrophils/100 WBC (Syn fld) 90 % High 0-25 [facility] Synovial fluid total cell co untOrdered By: Dereck Warner on 01-24-2025 Cells Counted Total (Syn fld) [#] 43.0700 10^3/uL High 0.000-0.000 [facility] Comment on above: This is the Total Nu mber of Nucleated Cell Types in the Body Fluid. Uric Acidon 01-24-2025 URIC 4.2 mg/dL Normal 2.6-6.0 [facility] Comment on above: Result Comment: The drugs N-Acetylcysteine and Metamizole may falsely depress this assay. Performed By: #### L 501.1400, L501.6710, L503.6005, L101.9900, L500.2500, L100.0100 #### [facility] [address] [place], [address] Urinalysis, Completeon 01-24 BACTERIA 1+ /hpf Normal None Seen [facility] Comment on above: Order Comment: CLEAN CATCH Performed By: #### L 500.2500, L100.0100 #### [facility] [address] [place], [address] EPI,SQUAMOUS 0-5 SEEN Normal 5-10 [facility] Comment on above: Order Comment: CLEAN CATCH Performed By: #### L 500.2500, L100.0100 #### [facility] [address] [place], [address] RBC 5-10 SEEN Normal 0-5 [facility] Comment on above: Order Comment: CLEAN CATCH Performed By: #### L 500.2500, L100.0100 #### [facility] [address] [place], [address] WBC 0-5 SEEN Normal 0-5 [facility] Comment on above: Order Comment: CLEAN CATCH Performed By: #### L 500.2500, L100.0100 #### [facility] [address] [place], [address] Mucus Ql (Urine sed) [address] [facility] Comment on above: Order Comment: CLEAN CATCH Performed By: #### L 500.2500, L100.0100 #### [facility] [address] [place], [place], [address] Urine clarityOrdered By: Forest Warner on 01-24-2025 Clarity (U) Clear Clear [facility] Urine color determinationOrd ered By: Dereck Warner on 01-24-2025 Color (U) Yellow Yellow [facility] Urine glucose detectionOrder ed By: Dereck Warner on 01-24-2025 Glucose Ql (U) Normal mg/dl Normal [facility] Urine leukocyte esterase det ection by dipstickOrdered By: Dereck Warner on 01-24-2025 Leukocyte esterase Test strip Ql (U) Negative Negative [facility] Urine pHOrdered By: Dereck Warner on 01-24-2025 pH (U) 6.0 [pH] 5.0 - 8.0 [facility] Urine sediment bacteria coun t by microscopy (number/high power field)Ordered By: Dereck Warner on 01-24-2025 Bacteria LM.HPF (Urine sed) [#/Area] 1 /[HPF] None Seen [facility] Urine specific gravity measu rementOrdered By: Dereck Warner on 01-24-2025 Specific gravity (U) [Rel density] 1.025 1.002-1.030 [facility] Urine urobilinogen measureme ntOrdered By: Dereck Warner on 01-24-2025 Urobilinogen Ql (U) Normal mg/dl Normal [facility] White blood cell countOrdere d By: Dereck Warner on 01-24-2025 White blood cell count 0-5 SEEN /hpf 0-5 [facility] Wrist min 3 Viewson 01-25-20 25 Wrist min 3 Views [facility] Services [address] [place], [place] [address] (159) Wrist min 3 Views MR#: [id number] Acct: [id number] Name: FIONA GRUBER Rep #: [id number] : 1940 F 84 From: Brice Santiago MD PCP: Dr. Ashley Roberson MD Status: REG ER Study: Wrist min 3 Views Date of Exam: 01/24/25 Exam# [id number] Ordering Dr: Dereck Warner MD EXAM: XR Right Wrist Complete, 3 or More Views CLINICAL INDICATION: PAIN TECHNIQUE: Frontal, lateral and oblique views of the right wrist. COMPARISON: No relevant prior studies available. FINDINGS: BONES/JOINTS: Mild degenerative changes of the intercarpal joints. Mild degenerative changes of the 1st carpometacarpal joint. Possible widening of the scapholunate joint space could be projection or ligamentous injury. Correlation with point tenderness is recommended. No acute fracture. No dislocation. SOFT TISSUES: Soft tissue swelling. No radiopaque foreign body. RAD/Wrist min 3 Views IMPRESSION: 1. Soft tissue swelling. 2. Possible widening of the scapholunate joint space could be projection or ligamentous injury. Correlation with point tenderness is recommended. Reading Location: [facility] CC: Dr. Dereck Warner MD; Dr. Ashley Roberson MD Neonatologist: Signed [facility] 12-29-2024 [facility] Telephone (NIQ) FIONA GRUBER ([id number]) 1940 F CHT Date Time Provider Department 12/29/24 [facility] During your visit today, we recorded the following information about you: Levi Frank 12/29/2024 8:36 AM Signed 12/29/24. Left VM with call center # for Pt to schedule [place] [facility] consult. [place] Allergies As of Date: 12/29/2024 Noted Allergy Reaction AMOXICILLIN 05/04/2005 4 - Hives Comments: GI upset OXYCODONE 07/12/2021 8 - GI Upset PENICILLINS 11/11/2018 4 - Hives SEASONAL ALLERGIES 07/07/2021 9 - Itching Comments: Fall Date Reviewed: 10/22/2024 Reviewed by: Nikki Higgins MA - Fully Assessed Reason for Visit: Appointment [186] Cmt: 12/29/24. Left VM with call center # for Pt to schedule [place] [facility] consult. [place] Prescriptions as of 12/29/2024 - cholestyramine (QUESTRAN) 4 gram packet Take 1 packet by mouth three times a day with meals. - escitalopram oxalate (LEXAPRO) 10 mg tablet Take 1 tablet by mouth daily at bedtime. - levothyroxine (SYNTHROID) 25 mcg tablet Take 1 tablet by mouth once daily. - memantine (NAMENDA) 10 mg tablet Take 1 tablet by mouth two times a day. - donepezil (ARICEPT) 10 mg tablet Take 1 tablet by mouth daily after breakfast. - colestipol (COLESTID) 1 gram tablet Take 1 tablet by mouth two times a day. Facility-Administered Medications as of 12/29/2024 - denosumab 60 mg injection (PROLIA) Meds Comments as of 03/08/2015: Ebony Zamora Problem List As Of Date 12/29/2024 Noted Resolved Age-related osteoporosis without current pathol*02/06/2005 Dysmetabolic syndrome X [E88.810] 07/10/2006 03/08/2017 Spastic Colitis [K58.9] 02/24/2009 Diarrhea [R19.7] 04/12/2009 03/08/2016 Secondary hyperparathyroidism (HCC) [N25.81] 08/02/2010 03/08/2017 Vaginal dryness [N89.8] 11/26/2013 11/30/2014 Vitamin D deficiency [E55.9] 01/19/2014 Postmenopausal atrophic vaginitis [N95.2] 11/30/2014 Osteopenia [M85.80] 03/08/2015 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] 03/08/2015 Essential tremor [G25.0] 03/08/2016 Hypercalcemia [E83.52] 03/13/2018 08/25/2019 High vitamin D level [E67.3] 03/13/2018 Rotator cuff arthropathy of both shoulders [M12*09/20/2018 Essential hypertension [I10] 08/18/2019 CKD (chronic kidney disease), stage III (HCC) [*08/18/2019 DEMETRA (acute kidney injury) (HCC) [N17.9] 08/18/2019 08/25/2019 Vitamin B 12 deficiency [E53.8] 08/18/2019 08/25/2019 Fatigue [R53.83] 11/18/2019 Elevated LFTs [R79.89] 11/18/2019 Mold exposure [Z77.120] 11/18/2019 B-complex deficiency [E53.9] 01/29/2020 Essential fatty acid (EFA) deficiency [E63.0] 01/29/2020 Exposure to mercury [Z77.018] 01/29/2020 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 Dementia without behavioral disturbance (HCC) [*02/20/2020 Hypothyroidism, acquired [E03.9] 05/22/2020 Abnormal finding on thyroid function test [R94.*03/31/2021 Acute confusion [R41.0] 03/31/2021 Osteopenia determined by x-ray [M85.80] 03/31/2021 Vitamin D toxicity [T45.2X1A] 03/31/2021 Cerebral amyloid angiopathy (CODE) [I68.0] 06/06/2021 Cerebral microvascular disease [I67.89] 06/09/2021 Closed nondisplaced fracture of sixth cervical *06/22/2021 Closed nondisplaced fracture of seventh cervica*06/22/2021 Closed fracture of transverse process of cervic*06/22/2021 Fall [W19.XXXA] 06/22/2021 06/22/2021 C6 cervical fracture (HCC) [S12.500A] 07/07/2021 At high risk for fracture [Z91.89] 01/23/2023 Balance disorder [R26.89] 07/17/2023 Encounter Status:Closed by LEVI FRANK on 12/29/24 Normal [facility] CNNURSEon 12-25-2024 CNNURSE Nurse Visit (FAMPWS) FIONA GRUBER ([id number]) 1940 F [facility] Date Time Provider Department 12/25/24 10:30 AM [place] NURSE [facility] During your visit today, we recorded the following information about you: KAILEE CASTILLO 12/25/2024 10:31 AM Signed Patient arrived with for Prolia injection. Reports that they recently received a bill for over $1000 for her last injection. has an information paper on contacts to reach out to for further instruction on what needs to be done to correct incorrect coding. Also recommended that they contact both the medical insurance and prescription insurance company to see who will cover the Prolia with their coverage. states that the did not have any issues last year, but they changed insurance this year. He will contact them and then let office know. Kailee Castillo LPN Allergies As of Date: 12/25/2024 Noted Allergy Reaction AMOXICILLIN 05/04/2005 4 - Hives Comments: GI upset OXYCODONE 07/12/2021 8 - GI Upset PENICILLINS 11/11/2018 4 - Hives SEASONAL ALLERGIES 07/07/2021 9 - Itching Comments: Fall Date Reviewed: 10/22/2024 Reviewed by: Nikki Higgins MA - Fully Assessed Reason for Visit: Appointment Cancelled [1023] Primary Visit Diagnosis:APPOINTMENT CANCELLED Prescriptions as of 12/25/2024 - cholestyramine (QUESTRAN) 4 gram packet Take 1 packet by mouth three times a day with meals. - escitalopram oxalate (LEXAPRO) 10 mg tablet Take 1 tablet by mouth daily at bedtime. - levothyroxine (SYNTHROID) 25 mcg tablet Take 1 tablet by mouth once daily. - memantine (NAMENDA) 10 mg tablet Take 1 tablet by mouth two times a day. - donepezil (ARICEPT) 10 mg tablet Take 1 tablet by mouth daily after breakfast. - colestipol (COLESTID) 1 gram tablet Take 1 tablet by mouth two times a day. Facility-Administered Medications as of 12/25/2024 - denosumab 60 mg injection (PROLIA) Meds Comments as of 03/08/2015: Ebony Zamora Problem List As Of Date 12/25/2024 Noted Resolved Age-related osteoporosis without current pathol*02/06/2005 Dysmetabolic syndrome X [E88.810] 07/10/2006 03/08/2017 Spastic Colitis [K58.9] 02/24/2009 Diarrhea [R19.7] 04/12/2009 03/08/2016 Secondary hyperparathyroidism (HCC) [N25.81] 08/02/2010 03/08/2017 Vaginal dryness [N89.8] 11/26/2013 11/30/2014 Vitamin D deficiency [E55.9] 01/19/2014 Postmenopausal atrophic vaginitis [N95.2] 11/30/2014 Osteopenia [M85.80] 03/08/2015 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] 03/08/2015 Essential tremor [G25.0] 03/08/2016 Hypercalcemia [E83.52] 03/13/2018 08/25/2019 High vitamin D level [E67.3] 03/13/2018 Rotator cuff arthropathy of both shoulders [M12*09/20/2018 Essential hypertension [I10] 08/18/2019 CKD (chronic kidney disease), stage III (HCC) [*08/18/2019 DEMETRA (acute kidney injury) (HCC) [N17.9] 08/18/2019 08/25/2019 Vitamin B 12 deficiency [E53.8] 08/18/2019 08/25/2019 Fatigue [R53.83] 11/18/2019 Elevated LFTs [R79.89] 11/18/2019 Mold exposure [Z77.120] 11/18/2019 B-complex deficiency [E53.9] 01/29/2020 Essential fatty acid (EFA) deficiency [E63.0] 01/29/2020 Exposure to mercury [Z77.018] 01/29/2020 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 Dementia without behavioral disturbance (HCC) [*02/20/2020 Hypothyroidism, acquired [E03.9] 05/22/2020 Abnormal finding on thyroid function test [R94.*03/31/2021 Acute confusion [R41.0] 03/31/2021 Osteopenia determined by x-ray [M85.80] 03/31/2021 Vitamin D toxicity [T45.2X1A] 03/31/2021 Cerebral amyloid angiopathy (CODE) [I68.0] 06/06/2021 Cerebral microvascular disease [I67.89] 06/09/2021 Closed nondisplaced fracture of sixth cervical *06/22/2021 Closed nondisplaced fracture of seventh cervica*06/22/2021 Closed fracture of transverse process of cervic*06/22/2021 Fall [W19.XXXA] 06/22/2021 06/22/2021 C6 cervical fracture (HCC) [S12.500A] 07/07/2021 At high risk for fracture [Z91.89] 01/23/2023 Balance disorder [R26.89] 07/17/2023 Encounter Status:Closed by KAILEE CASTILLO on 12/25/24 [facility] CNPNon 11-21-2024 CNPN Telephone (INTMWS) FIONA GRUBER ([id number]) 1940 F [facility] Date Time Provider Department 11/21/24 ASHLEY ROBERSON INTWS During your visit today, we recorded the following information about you: Izabella Nunez 11/21/2024 1:07 PM Signed Prescription Refill Information The patient has been identified by name and date of : Yes Caregiver verified no other encounters exist for this prescription request: Yes Caregiver confirmed with patient/requestor that no other refills are due, in the near future, with this provider at this time: Yes The last office visit in the department: 09-30-24 Does the patient have a future office visit with this provider/department: Yes Requested Prescriptions Pending Prescriptions Disp Refills cholestyramine (QUESTRAN) 4 gram packet 90 packet 2 Sig: Take 1 packet by mouth three times a day with meals. Patient has 1 pill left. Izabella Nunez November 21, 2024 1:05 PM Izabella Nunez 11/21/2024 1:08 PM Signed REROUTING Ann Thompson RN 11/21/2024 5:11 PM Signed Called and spoke with pt and her Dong. Per pt has only been taking the Cholestyramine packets twice a day. They said originally they were taking it once a day and then Dr. Roberson told pt to take it twice a day. Pt's read the instructions on the box that say pt should be taking it three times a day with meals. Also noted on the box is 2 refills from [facility]. He is instructed to call [facility] to get the refill to them as soon as possible. states pt only has one packet left to use tomorrow. Pt did a virtual visit with Dr. Lyn Mckeon with functional medicine at [facility]. Per his msgs and notes, he documents that pt has been taking it BID and he stated the following in his post visit instructions: Patient Instructions We discussed your ongoing diarrhea and related symptoms: - You have been experiencing loose, watery stools with urgency and accidents for about a year. You have tried colestipol and cholestyramine twice daily without improvement. - I recommend stool microbiome testing (GI Effects by [facility]) to evaluate for potential imbalances, inflammation, or other underlying causes. A kit will be mailed to you, and you should collect three separate stool samples (on the same or different days) and return them as instructed. Results typically take 3-4 weeks to process. - Continue taking cholestyramine but adjust the timing: take it at least 1 hour before or 4-6 hours after food, medications, or supplements to avoid interference with absorption. Ashley Roberson MD 11/25/2024 4:43 PM Signed I sent an rx to the local pharmacy Ashley Reyes MD, Brittany L, MA 11/25/2024 4:44 PM Signed The following approved medication requests have been transmitted electronically. Requested Prescriptions Signed Prescriptions Disp Refills cholestyramine (QUESTRAN) 4 gram packet 90 packet 2 Sig: Take 1 packet by mouth three times a day with meals. Authorizing Provider: ASHLEY ROBERSON MA Allergies As of Date: 11/21/2024 Noted Allergy Reaction AMOXICILLIN 05/04/2005 4 - Hives Comments: GI upset OXYCODONE 07/12/2021 8 - GI Upset PENICILLINS 11/11/2018 4 - Hives SEASONAL ALLERGIES 07/07/2021 9 - Itching Comments: Fall Date Reviewed: 10/22/2024 Reviewed by: Nikki Higgins MA - Fully Assessed Reason for Visit: Refill Request [94] Order(s):cholestyramin e (QUESTRAN) 4 gram packetTake 1 packet by mouth three times a day with meals.Disp: 90 packetRfl: 2 Prescriptions as of 11/25/2024 - cholestyramine (QUESTRAN) 4 gram packet Take 1 packet by mouth three times a day with meals. - escitalopram oxalate (LEXAPRO) 10 mg tablet Take 1 tablet by mouth daily at bedtime. - levothyroxine (SYNTHROID) 25 mcg tablet Take 1 tablet by mouth once daily. - memantine (NAMENDA) 10 mg tablet Take 1 tablet by mouth two times a day. - donepezil (ARICEPT) 10 mg tablet Take 1 tablet by mouth daily after breakfast. - colestipol (COLESTID) 1 gram tablet Take 1 tablet by mouth two times a day. Facility-Administered Medications as of 11/25/2024 - denosumab 60 mg injection (PROLIA) Meds Comments as of 03/08/2015: Ebony Zamora Problem List As Of Date 11/21/2024 Noted Resolved Age-related osteoporosis without current pathol*02/06/2005 Dysmetabolic syndrome X [E88.810] 07/10/2006 03/08/2017 Spastic Colitis [K58.9] 02/24/2009 Diarrhea [R19.7] 04/12/2009 03/08/2016 Secondary hyperparathyroidism (HCC) [N25.81] 08/02/2010 03/08/2017 Vaginal dryness [N89.8] 11/26/2013 11/30/2014 Vitamin D deficiency [E55.9] 01/19/2014 Postmenopausal atrophic vaginitis [N95.2] 11/30/2014 Osteopenia [M85.80] 03/08/2015 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] 03/08/2015 Essential tremor [G25.0] 03/08/2016 Hypercalcemia [E83.52] 03/13/2018 08/25/2019 Hi (more content not included)... Normal [facility] CNPNon 11-10-2024 CNPN Telephone (INTMWS) CARMENFIONA Valeri ([id number]) 1940 F T Date Time Provider Department 11/10/24 ASHLEY ROBERSON INTMWS During your visit today, we recorded the following information about you: Radha Mario RN 11/10/2024 3:04 PM Signed Spouse (Dong) calling with an update since patient was started on escitalopram 10 mg at bedtime. Dong reports that shortly after patient started taking the escitalopram (within a few days) they noticed that patient was sleeping majority of the day as well as the usual at bedtime. Dong also noticed that patient is requiring assistance with dressing and ADL's that she was able to complete on her own prior to starting the escitalopram with occasional cuing. Also reports noticing increased incontinence during the night with the escitalopram. Please review and advise, TYRON Kelly Chitra, MD 11/10/2024 5:25 PM Signed Well we can stop the medication. For the first week take the pill every other day and then stop the medication. Regards, Chevy Cornejo MD, RN 11/10/2024 5:43 PM Signed Pt's called and is notified of providers results and instructions. He voices understanding. Chevy Narayan RN Allergies As of Date: 11/10/2024 Noted Allergy Reaction AMOXICILLIN 05/04/2005 4 - Hives Comments: GI upset OXYCODONE 07/12/2021 8 - GI Upset PENICILLINS 11/11/2018 4 - Hives SEASONAL ALLERGIES 07/07/2021 9 - Itching Comments: Fall Date Reviewed: 10/22/2024 Reviewed by: Nikki Higgins MA - Fully Assessed Reason for Visit: Patient Update [1234] Prescriptions as of 11/10/2024 - escitalopram oxalate (LEXAPRO) 10 mg tablet Take 1 tablet by mouth daily at bedtime. - levothyroxine (SYNTHROID) 25 mcg tablet Take 1 tablet by mouth once daily. - memantine (NAMENDA) 10 mg tablet Take 1 tablet by mouth two times a day. - cholestyramine (QUESTRAN) 4 gram packet Take 1 packet by mouth three times a day with meals. - donepezil (ARICEPT) 10 mg tablet Take 1 tablet by mouth daily after breakfast. - colestipol (COLESTID) 1 gram tablet Take 1 tablet by mouth two times a day. Facility-Administered Medications as of 11/10/2024 - denosumab 60 mg injection (PROLIA) Meds Comments as of 03/08/2015: Ebony Noah Problem List As Of Date 11/10/2024 Noted Resolved Age-related osteoporosis without current pathol*02/06/2005 Dysmetabolic syndrome X [E88.810] 07/10/2006 03/08/2017 Spastic Colitis [K58.9] 02/24/2009 Diarrhea [R19.7] 04/12/2009 03/08/2016 Secondary hyperparathyroidism (HCC) [N25.81] 08/02/2010 03/08/2017 Vaginal dryness [N89.8] 11/26/2013 11/30/2014 Vitamin D deficiency [E55.9] 01/19/2014 Postmenopausal atrophic vaginitis [N95.2] 11/30/2014 Osteopenia [M85.80] 03/08/2015 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] 03/08/2015 Essential tremor [G25.0] 03/08/2016 Hypercalcemia [E83.52] 03/13/2018 08/25/2019 High vitamin D level [E67.3] 03/13/2018 Rotator cuff arthropathy of both shoulders [M12*09/20/2018 Essential hypertension [I10] 08/18/2019 CKD (chronic kidney disease), stage III (HCC) [*08/18/2019 DEMETRA (acute kidney injury) (HCC) [N17.9] 08/18/2019 08/25/2019 Vitamin B 12 deficiency [E53.8] 08/18/2019 08/25/2019 Fatigue [R53.83] 11/18/2019 Elevated LFTs [R79.89] 11/18/2019 Mold exposure [Z77.120] 11/18/2019 B-complex deficiency [E53.9] 01/29/2020 Essential fatty acid (EFA) deficiency [E63.0] 01/29/2020 Exposure to mercury [Z77.018] 01/29/2020 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 Dementia without behavioral disturbance (HCC) [*02/20/2020 Hypothyroidism, acquired [E03.9] 05/22/2020 Abnormal finding on thyroid function test [R94.*03/31/2021 Acute confusion [R41.0] 03/31/2021 Osteopenia determined by x-ray [M85.80] 03/31/2021 Vitamin D toxicity [T45.2X1A] 03/31/2021 Cerebral amyloid angiopathy (CODE) [I68.0] 06/06/2021 Cerebral microvascular disease [I67.89] 06/09/2021 Closed nondisplaced fracture of sixth cervical *06/22/2021 Closed nondisplaced fracture of seventh cervica*06/22/2021 Closed fracture of transverse process of cervic*06/22/2021 Fall [W19.XXXA] 06/22/2021 06/22/2021 C6 cervical fracture (HCC) [S12.500A] 07/07/2021 At high risk for fracture [Z91.89] 01/23/2023 Balance disorder [R26.89] 07/17/2023 Encounter Status:Closed by CHEVY NARAYAN on 11/10/24 Normal [facility] COPPER BLOODon 11-07-2024 Copper [Mass/Vol] 120 ug/dL Normal 80-155 [facility] Comment on above: Order Comment: Speci men Type: BLOOD SPECIMENOrdering Facility: [facility] Address: [address] [place] [address] Result Comment: This test was developed, and its performance characteristics determined by the [facility] Department of Pathology and Laboratory Medicine. It has not been cleared or approved by the FDA. The [facility] Department of Pathology and Laboratory Medicine is regulated under CLIA as qualified to perform high-complexity testing. This test is used for clinical purposes. It should not be regarded as investigational or for research. Performed By: #### C KENNETH, 5763-8 ####[facility] LABCLIA [id number] [place] [address] [place] CRP SerPl HS-mCncon 11-08-19 25 CRP High sensitivity method [Mass/Vol] 0.9 mg/L Normal <3.1 [facility] Comment on above: Order Comment: Speci men Type: BLOOD SPECIMENOrdering Facility: [facility] Address: [address] [place] [address] Result Comment: hsCR P < 1.0 mg/L, relative risk is low hsCRP 1.0-3.0 mg/L, relative risk is average hsCRP > 3.0 mg/L, relative risk is high Reference: Zion TA, Raudel GA, Shabbir RW, et al. Markers of Inflammation and Cardiovascular Disease. Application to Clinical and Public Health Practice. A Statement for Healthcare Professionals from the Centers for Disease Control and Prevention and the [place] [employer]. Circulation 2003;107:499-511. Performed By: #### 3 0522-7, 93923-9, 2132-9 ####[facility] LABCLIA [id number] [place] [address] [place] MAGNESIUM RBCon 11-07-2024 Magnesium (RBC) [Moles/Vol] 3.9 mg/dL Low 4.0-6.5 [facility] Comment on above: Order Comment: Speci men Type: BLOOD SPECIMENOrdering Facility: [facility] Address: [address] [place] [address] Result Comment: This test was developed, and its performance characteristics determined by the [facility] Department of Pathology and Laboratory Medicine. It has not been cleared or approved by the FDA. The [facility] Department of Pathology and Laboratory Medicine is regulated under CLIA as qualified to perform high-complexity testing. This test is used for clinical purposes. It should not be regarded as investigational or for research. Performed By: #### M AGRBC ####[facility] LABCLIA [id number] [facility] [id number] [place] [address] [place] OMEGACHECKon 11-07-2024 ARACHIDONIC ACID 14.3 % by wt Normal 8.6-15.6 [facility] Comment on above: Order Comment: Speci men Type: BLOOD SPECIMENOrdering Facility: [facility] Address: [address] [place] [address] Performed By: #### O MEGAC ####[facility] [id number] [address] [place], [place] [id number] ARACHIDONIC ACID/EPA RATIO 40.5 Normal 3.7-40.7 [facility] Comment on above: Order Comment: Speci men Type: BLOOD SPECIMENOrdering Facility: [facility] Address: [address] [place] [address] Result Comment: Rece ived Date: Performed By: #### O MEGAC ####[facility] [id number] [address] [place], [place] [address] DHA 3.0 % by wt Normal 1.4-5.1 [facility] Comment on above: Order Comment: Speci men Type: BLOOD SPECIMENOrdering Facility: [facility] Address: [address] [place] [address] Performed By: #### O MEGAC ####[facility] [id number] [address] [place], [place] [address] DPA 0.8 % by wt Normal 0.8-1.8 [facility] Comment on above: Order Comment: Speci men Type: BLOOD SPECIMENOrdering Facility: [facility] Address: [address] [place] [address] Performed By: #### O MEGAC ####[facility] [id number] [address] [place], [place] [address] EPA 0.4 % by wt Normal 0.2-2.3 [facility] Comment on above: Order Comment: Speci men Type: BLOOD SPECIMENOrdering Facility: [facility] Address: [address] [place], [place] [id number] Performed By: #### O MEGAC ####[facility] [id number] [address] [place] [address] LINOLEIC ACID 23.5 % by wt Normal 18.6-29.5 [facility] Comment on above: Order Comment: Speci men Type: BLOOD SPECIMENOrdering Facility: [facility] Address: [address] [place] [address] Performed By: #### O MEGAC ####[facility]CL[facility] [id number] [address] [place] [address] OMEGA-3 TOTAL 4.2 % by wt Normal [facility] Comment on above: Order Comment: Speci men Type: BLOOD SPECIMENOrdering Facility: [facility] Address: [address] [place] [address] Performed By: #### O MEGAC ####[facility]LABCLIA [id number] [address] [place] [address] OMEGA-6 TOTAL 40.3 % by wt Normal [facility] Comment on above: Order Comment: Speci men Type: BLOOD SPECIMENOrdering Facility: [facility] Address: [address] [place] [address] Result Comment: [facility] measures a number of omega-6 fatty acids with AA and LA being the two most abundant forms reported. Performed By: #### O MEGAC ####[facility] [id number] [address] [place] [address] OMEGA-6/OMEGA-3 RATIO 9.7 Normal 3.7-14.4 [facility] Comment on above: Order Comment: Speci men Type: BLOOD SPECIMENOrdering Facility: [facility] Address: [address] [place], [place] [id number] Performed By: #### O MEGAC ####[facility] [id number] [address] [place] [address] OMEGACHECK 4.2 % by wt Low >5.4 [facility] Comment on above: Order Comment: Speci men Type: BLOOD SPECIMENOrdering Facility: [facility] Address: [address] [place] [address] Result Comment: Incr easing blood levels of long-chain n-3 fatty acids are associated with a lower risk of sudden cardiac (1). Based on the top (75th percentile) and bottom (25th percentile) quartiles of the CHL reference population, the following relative risk categories were established for OmegaCheck: A cut-off of >=5.5% by wt defines a population at optimal relative risk, 3.8-5.4% by wt defines a population at moderate relative risk, and <=3.7% by wt defines a population at high relative risk of sudden cardiac . The totality of the scientific evidence demonstrates that when consumption of fish oils is limited to 3 g/day or less of EPA and DHA, there is no significant risk for increased bleeding time beyond the normal range. A daily dosage of 1 gram of EPA and DHA lowers the circulating triglycerides by about 7-10% within 2 to 3 weeks. (Reference: 1-Sergio et al. [facility]. 2002; 346: 8260-3072).This test was developed and its analytical performance characteristics have been determined by [facility]. It has not been cleared or approved by the U.S. Food and Drug Administration. This assay has been validated pursuant to the CLIA regulations and is used for clinical purposes. Performed By: #### O MEGAC ####[facility]LABCLIA [id number] [place] [address] Prealb SerPl-mCncon 11-08-19 25 Prealbumin [Mass/Vol] 16 mg/dL Low 17-36 [facility] Comment on above: Order Comment: Speci men Type: BLOOD SPECIMENOrdering Facility: [facility] Address: [address] [place] [address] Performed By: #### 3 0522-7, 05570-9, 2132-9 ####[facility] LABCLIA [id number] [facility] [id number] [place] [address] [place] TMAOon 11-07-2024 TMAO 9.7 uM High <6.2 [facility] Comment on above: Order Comment: Specbrinda johanne Type: BLOOD SPECIMENOrdering Facility: [facility] Address: [address] [place] [address] Result Comment: Base d on a population (V=[id number]) defined as ambulatory stable patients without acute coronary syndrome who underwent elective diagnostic coronary angiography (1) and a reference range study of apparently healthy donors (N=180), we have defined the following cut-offs for TMAO to assess relative risk of a cardiovascular event: A cut-off of <6.2 uM defines a population at optimal relative risk for a cardiovascular event relative to those above this level. 6.2-9.9 uM defines a population at moderate relative risk for a cardiovascular event (two-fold increased risk of MACE at 3 years) relative to those with TMAO <6.2 uM (1). Given the dose-dependent relationship between TMAO and cardiovascular event risk demonstrated across multiple clinical subgroups (2), those above the upper limit of the [facility] 95% population interval (>=10.0 uM) are defined as high relative risk for a cardiovascular event relative to those with TMAO <6.2 uM. (References: 1-Tapan et al. N Engl J Med. 2013; 368:8522-0806. 2-Ursula Jose et al. J Am Heart Assoc. 2017;6(7)).This test was developed and its analytical performance characteristics have been determined by [facility]. It has not been cleared or approved by the U.S. Food and Drug Administration. This assay has been validated pursuant to the CLIA regulations and is used for clinical purposes. Received Date: [id number] Performed By: #### T MAO ####[facility] [id number] [facility] [address] [address] VITAMIN B1 (THIAMINE), WHOLE BLOODon 11-07-2024 Thiamine (Bld) [Moles/Vol] 182.2 nmol/L Normal 84.3-213.3 [facility] Comment on above: Order Comment: Steph johanne Type: BLOOD SPECIMENOrdering Facility: [facility] Address: [address] [place] [address] Result Comment: This assay measures the concentration of thiamine diphosphate (TDP), the primary active form of vitamin B1. Approximately 90 percent of vitamin B1 present in whole blood is TDP. Thiamine and thiamine monophosphate, which comprise the remaining 10 percent, are not measured. This test was developed, and its performance characteristics determined by the [facility] Department of Pathology and Laboratory Medicine. It has not been cleared or approved by the FDA. The [facility] Department of Pathology and Laboratory Medicine is regulated under CLIA as qualified to perform high-complexity testing. This test is used for clinical purposes. It should not be regarded as investigational or for research. Performed By: #### B 1WB ####[facility] LABCLIA [id number] [address] OF [facility] VITAMIN B2/RIBOFLAVon 2024 VITAMIN B2 14 nmol/L Normal 5-50 [facility] Comment on above: Order Comment: Speci johanne Type: BLOOD SPECIMENOrdering Facility: [facility] Address: [address] [place] [address] Result Comment: INTE RPRETIVE INFORMATION: Vitamin B2, Plasma This test was developed and its performance characteristics determined by [facility]. It has not been cleared or approved by the US Food and Drug Administration. This test was performed in a CLIA certified laboratory and is intended for clinical purposes. Performed By: [facility] [address] [place] [address] [employer] Supervisor: Keenan Loza MD, PhD [place] Number: [id number] Performed By: #### V ITB2 ####[facility]ITAL[facility] [id number] [place] [address] VITAMIN B6/PYRIDOXINon 11-07 VITAMIN B6 14.7 nmol/L Low 20.0-125.0 [facility] Comment on above: Order Comment: Speci men Type: BLOOD SPECIMENOrdering Facility: [facility] [facility] Address: [address] [place] [address] Result Comment: INTE RPRETIVE INFORMATION: Vitamin B6 (Pyridoxal 5-Phosphate) Pyridoxal 5'-phosphate measured in a specimen collected following an 8-hour or overnight fast accurately indicates vitamin B6 nutritional status. Non-fasting specimen concentration reflects recent vitamin intake. This test was developed and its performance characteristics determined by [employer]. It has not been cleared or approved by the [place] Food and Drug Administration. This test was performed in a CLIA certified laboratory and is intended for clinical purposes. Performed By: [facility] [address] [place], [place] [id number] Paperhanger Supervisor: Keenan Loza MD, PhD CLIA Number: [id number] Performed By: #### V ITB6 ####[facility] [id number] [place] [id number] VITAMIN Con 11-07-2024 VITAMIN C 9 umol/L Low 23-114 [facility] Comment on above: Order Comment: Speci men Type: BLOOD SPECIMENOrdering Facility: [facility] Address: [address] [place] [address] Result Comment: Naldo min C concentrations lower than 11 umol/L indicate deficiency. Concentrations between 11 and 23 umol/L are consistent with a moderate risk of deficiency due to inadequate tissue stores. Vitamin C concentration is reported as micromoles per liter (umol/L). To convert concentration to milligrams per deciliter (mg/dL), multiply the result by 0.0176. This test was developed and its performance characteristics determined by [employer]. It has not been cleared or approved by the US Food and Drug Administration. This test was performed in a CLIA certified laboratory and is intended for clinical purposes. Performed By: [facility] [address] [place], [place] [id number] [employer]anger Supervisor: Keenan Loza MD, PhD CLIA Number: [id number] Performed By: #### V ITC ####[facility] [id number] [place] [id number] Vit A SerPl-mCncon 5 Retinol [Mass/Vol] 0.28 mg/L Low 0.30-1.20 [facility] Comment on above: Order Comment: Speci johanne Type: BLOOD SPECIMENOrdering Facility: [facility] Address: [address] [place] [address] Result Comment: This test was developed, and its performance characteristics determined by the [facility] Department of Pathology and Laboratory Medicine. It has not been cleared or approved by the FDA. The [facility] Department of Pathology and Laboratory Medicine is regulated under CLIA as qualified to perform high-complexity testing. This test is used for clinical purposes. It should not be regarded as investigational or for research. Performed By: #### 2 923-1 ####[facility] LABIA [id number] [place] [id number] [facility] Vit B12 [facility] Cobalamin (Vitamin B12) [Mass/Vol] 723 pg/mL Normal 232-1245 [facility] Comment on above: Order Comment: Steph whiting Type: BLOOD SPECIMENOrdering Facility: [facility] Address: [address] [place] [address] Performed By: #### 3 0522-7, 95862-8, 2132-9 ####[facility] [id number] [address] Zinc [facility] 11-07-2024 Zinc [Mass/Vol] 71 ug/dL Normal 60-120 [facility] Comment on above: Order Comment: Steph whiting Type: BLOOD SPECIMENOrdering Facility: [facility] Address: [address] [place] [address] Result Comment: This test was developed, and its performance characteristics determined by the [facility] Department of Pathology and Laboratory Medicine. It has not been cleared or approved by the FDA. The [facility] Department of Pathology and Laboratory Medicine is regulated under CLIA as qualified to perform high-complexity testing. This test is used for clinical purposes. It should not be regarded as investigational or for research. Performed By: #### C KENNETH, 5763-8 ####[facility] [id number] [address] OF [place] CNOVon 10-22-2024 CNOV [facility] FIONA GRUBER ([id number]) 1940 F T Date Time Provider Department 10/22/24 3:30 PM ASHLEY ROBERSON During your visit today, we recorded the following information about you: Pulse Respiration Blood pressure Weight 91/minute 16/minute 117/76 58.7 kg Ashley Roberson MD 10/22/2024 4:34 PM Addendum We discussed several concerns and made adjustments to your care plan: 1. Crying Spells and Mood: - I prescribed Lexapro (10 mg once daily) to help with your crying spells. Please take this at night. [facility] - If Lexapro does not help, we will consider switching to Zoloft. 2. Cramps at Night: - Your nighttime cramps may be related to Crestor. We will stop Crestor for 3 months to see if the cramps improve. Let us know if the cramps persist or worsen. 3. Shortness of Breath: - You mentioned experiencing shortness of breath when walking. Please monitor this and let us know if it worsens or becomes more frequent. 4. Runny Stool: - Occasional runny stool is normal. Continue staying hydrated by drinking water with meals. 5. Blood Pressure: - Your blood pressure was slightly elevated today. We will recheck it at your next visit. 6. Prolia Injection: - You are due for your Prolia injection every 6 months. Your last injection was administered at [place]. Please ensure you stay on schedule for this treatment. 7. Cholesterol and Thyroid: - Your cholesterol and thyroid levels were checked 2 months ago and are within normal limits. No further action is needed at this time. 8. Namenda: - Continue taking Namenda twice daily as prescribed. It is okay to take it with or without food. Please monitor your symptoms and let us know if there are any changes or concerns. We will follow up on your blood pressure and the effects of stopping Crestor at your next visit. Ashley Roberson MD 10/22/2024 5:25 PM Signed Reason for Visit Follow up HPI Fiona Gruber is a 84-year-old female with a history of hypercholesterolemia, hypothyroidism, and dementia, presenting for evaluation of multiple concerns, accompanied by a family member who is providing history on behalf of Fiona. Fiona has a wart that was previously biopsied and confirmed to be benign. She inquires about the possibility of cryotherapy for removal. She also reports experiencing nocturnal leg cramps, which she believes are related to inadequate hydration. She has been increasing her water intake, consuming water with breakfast and lunch, but notes that her intake is still not substantial. She denies daily episodes of loose stools, but mentions occasional occurrences. Fiona is currently taking a stool softener and inquires about the proper timing of administration in relation to meals. She is also on Namenda, which she takes BID, and receives Prolia injections every 6 months. She denies any issues with these medications. Fiona has been experiencing dyspnea with prolonged ambulation, which she attributes to forgetting to breathe. She also has episodes of nocturnal crying, which she describes as a way to cope with emotional distress. She expresses a desire to return to her childhood home in [place] and frequently thinks about her younger sister, who lives there. She reports feeling confused about her current residence and misses her family. She also mentions feeling isolated when her family is outside, especially in hot weather, but states that she does not mind being alone as long as it is not for extended periods. Fiona's family member notes that she has been wetting her Depends more frequently. Recent laboratory results from 2 months ago show normal cholesterol and thyroid levels. Social History Tobacco Use Smoking status: Never Smokeless tobacco: Never Vaping Use Vaping status: Never Used Substance Use Topics Alcohol use: Yes Comment: Occasionally wine Drug use: No Past medical history, appointments, medications, allergies reviewed. Pertinent Lab/Diagnostic Studies are reviewed and discussed today Current Outpatient Medications: levothyroxine (SYNTHROID) 25 mcg tablet memantine (NAMENDA) 10 mg tablet cholestyramine (QUESTRAN) 4 gram packet donepezil (ARICEPT) 10 mg tablet colestipol (COLESTID) 1 gram tablet escitalopram oxalate (LEXAPRO) 10 mg tablet memantine (NAMENDA) 10 mg/5 mL oral liquid Current Facility-Administered Medications: denosumab 60 mg injection (PROLIA) Health Maintenance Bone Density Screening Advance Directive Discussion Medicare Advantage Annual Wellness Visit Covid-19 Vaccine( season)@ Review Of Systems Respiratory: (+) dyspnea on exertion Gastrointestinal: (+) intermittent diarrhea Genitourinary: (+) urinary incontinence Musculoskeletal: (+) nocturnal cramps Skin: (+) cutaneous war (more content not included)... Normal [facility] CNOVon 09-30-2024 CNOV Office Visit (INTMWS ) FIONA GRUBER ([id number]) 1940 F T Date Time Provider Department 09/30/24 1:40 PM KRISTIN DEAN INTWS During your visit today, we recorded the following information about you: Pulse Respiration Blood pressure Weight 100/minute 12/minute 132/84 59.3 kg Kristin Dean, LOFT WORKER.ICT ACCOUNT MANAGER 09/30/2024 1:51 PM Addendum [facility] dermatology [phone] Kristin Dean, LOFT WORKER.[facility] 09/30/2024 2:00 PM Signed CC: Patient presents with: Wart: RT hand x 6 months HPI Fiona Trammell Carmen is a 84 year old female who presents today for above. Skin lesion present for six months. Has tried numerous OTC treatments without effect. Lesion seems to be getting larger. Denies pain, drainage, itching. Denies history of skin cancer. BP 132/84 Pulse 100 Resp 12 Wt 59.3 kg (130 lb 11.7 oz) SpO2 99% BMI 22.44 kg/m? Physical Exam Vitals reviewed. Constitutional: Appearance: Normal appearance. Musculoskeletal: Arms: Neurological: Mental Status: She is alert. ASSESSMENT/PLAN: 1. Skin lesion of hand - ICD9: 709.9, ICD10: L98.9 Differentials include squamous cell carcinoma, actinic keratosis, viral wart. Recommend referral to dermatology for further evaluation and possible skin biopsy. Patient agreeable, prefers to stay local at [facility]. Order faxed and patient was given phone number to call and schedule. I spent a total of 20 minutes on the date of the service which included preparing to see the patient, uygt-[id number] patient care, completing clinical documentation, performing a medically appropriate examination, and counseling and educating the patient/family/caregiv er. Prescription instructions reviewed with patient as applicable. Potential red flag symptoms discussed with the patient. Reviewed appropriate action plan to take if red flag symptoms occur. Patient agreeable to treatment plan. Kristin Dean APRN.ICT ACCOUNT MANAGER Referring Provider: LILIA VAZQUEZ [[id number]] Allergies As of Date: 09/30/2024 Noted Allergy Reaction AMOXICILLIN 05/04/2005 4 - Hives Comments: GI upset OXYCODONE 07/12/2021 8 - GI Upset PENICILLINS 11/11/2018 4 - Hives SEASONAL ALLERGIES 07/07/2021 9 - Itching Comments: Fall Date Reviewed: 09/30/2024 Reviewed by: Lin Bee MA - Fully Assessed Reason for Visit: Wart [927] Cmt: RT hand x 6 months Primary Visit Diagnosis:Skin lesion of hand [L98.9] Order(s):CONSULT TO DERMATOLOGY [9006] Order #: [id number]: 1 FUTURE Prescriptions as of 09/30/2024 - memantine (NAMENDA) 10 mg tablet Take 1 tablet by mouth two times a day. - memantine (NAMENDA) 10 mg/5 mL oral liquid 5ml po twice daily - cholestyramine (QUESTRAN) 4 gram packet Take 1 packet by mouth three times a day with meals. - donepezil (ARICEPT) 10 mg tablet Take 1 tablet by mouth daily after breakfast. - levothyroxine (SYNTHROID) 25 mcg tablet Take 1 tablet by mouth once daily. - rosuvastatin (CRESTOR) 10 mg tablet Take 1 tablet by mouth daily at bedtime. - colestipol (COLESTID) 1 gram tablet Take 1 tablet by mouth two times a day. Facility-Administered Medications as of 09/30/2024 - denosumab 60 mg injection (PROLIA) Meds Comments as of 03/08/2015: Ebony Zamora Problem List As Of Date 09/30/2024 Noted Resolved Age-related osteoporosis without current pathol*02/06/2005 Dysmetabolic syndrome X [E88.810] 07/10/2006 03/08/2017 Spastic Colitis [K58.9] 02/24/2009 Diarrhea [R19.7] 04/12/2009 03/08/2016 Secondary hyperparathyroidism (HCC) [N25.81] 08/02/2010 03/08/2017 Vaginal dryness [N89.8] 11/26/2013 11/30/2014 Vitamin D deficiency [E55.9] 01/19/2014 Postmenopausal atrophic vaginitis [N95.2] 11/30/2014 Osteopenia [M85.80] 03/08/2015 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] 03/08/2015 Essential tremor [G25.0] 03/08/2016 Hypercalcemia [E83.52] 03/13/2018 08/25/2019 High vitamin D level [E67.3] 03/13/2018 Rotator cuff arthropathy of both shoulders [M12*09/20/2018 Essential hypertension [I10] 08/18/2019 CKD (chronic kidney disease), stage III (HCC) [*08/18/2019 DEMETRA (acute kidney injury) (HCC) [N17.9] 08/18/2019 08/25/2019 Vitamin B 12 deficiency [E53.8] 08/18/2019 08/25/2019 Fatigue [R53.83] 11/18/2019 Elevated LFTs [R79.89] 11/18/2019 Mold exposure [Z77.120] 11/18/2019 B-complex deficiency [E53.9] 01/29/2020 Essential fatty acid (EFA) deficiency [E63.0] 01/29/2020 Exposure to mercury [Z77.018] 01/29/2020 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 Normal [facility] CNOVon 09-29-2024 CNOV Office Visit (INTMWS ) ISMA GRUBERMARC Trammell ([id number]) 1940 F T Date Time Provider Department 09/29/24 12:00 PM LILIA VAZQUEZ INTMWS During your visit today, we recorded the following information about you: Pulse Respiration Blood pressure 94/minute 16/minute 147/83 Lilia Vazquez APRN.[facility] 09/29/2024 12:41 PM Signed Subjective Patient ID: Fiona is a 84 year old female who presents for inflammed navel. HPI Fiona Gruber is an 84-year-old female presenting with umbilical soreness and a wart on the back of her hand. Umbilical Soreness: - Onset 2-3 weeks ago. - Noticed soreness after a particularly hot day. - No pruritus or malodor. - Applied peroxide to the area. - Denies any recent trauma or injury to the area. Wart on Hand: - Located on the back of the hand. - Has attempted to remove it multiple times using [id number] treatments without success. - Occasionally gets caught on clothing due to its protrusion. ROS Skin: (+) hand lesion, (-) umbilical pain, (-) pruritus, (-) umbilical discharge Objective BP 147/83 Pulse 94 Resp 16 Physical Exam Vitals and nursing note reviewed. Constitutional: Appearance: Normal appearance. HENT: Head: Normocephalic and atraumatic. Eyes: Conjunctiva/sclera: Conjunctivae normal. Cardiovascular: Rate and Rhythm: Normal rate. Pulmonary: Effort: Pulmonary effort is normal. Skin: General: Skin is warm and dry. Comments: Erythema and scant serous drainage present, proximal greater than distal at umbilicus. No induration or warmth. Wart anterior surface right hand Neurological: General: No focal deficit present. Mental Status: She is alert and oriented to person, place, and time. 1. Umbilicus discharge (R19.8) - Mild discomfort, not pruritic, no significant drainage or odor noted; has been applying hydrogen peroxide. - Advised to discontinue use of hydrogen peroxide due to its potential to irritate the skin. - Recommended cleaning the area with soap and water, ensuring thorough drying. - Prescribed application of triple antibiotic ointment to the umbilical area. - If factitious manipulation occurs, advised to cover the area with a dry gauze to prevent further irritation. 2. Common wart (B07.8) - Located on the back of the hand; previous attempts to remove with oeek-hll-brzenis treatments have been unsuccessful. - Scheduled for cryotherapy in the office to remove the wart. Lilia Vazquez APRN.CLASSIFICATION AND TREATMENT DIRECTOR Medical Decision Making: Problems: Low: 2+ self-limited or minor problems Risk: Moderate: Drug management Medical Decision Making Level: 3 - Lilia Diaz APRN.CLASSIFICATION AND TREATMENT DIRECTOR 09/29/2024 12:34 PM Signed - Stop using hydrogen peroxide on your belly button. - Clean the area gently with soap and water, then dry completely with a towel. - Apply the triple-antibiotic ointment provided to the sore area. - If you feel the urge to pick or dig at it, cover the area with dry gauze - The soreness should clear up in a few days, let us know if not continuing to improve Allergies As of Date: 09/29/2024 Noted Allergy Reaction AMOXICILLIN 05/04/2005 4 - Hives Comments: GI upset OXYCODONE 07/12/2021 8 - GI Upset PENICILLINS 11/11/2018 4 - Hives SEASONAL ALLERGIES 07/07/2021 9 - Itching Comments: Fall Date Reviewed: 09/29/2024 Reviewed by: Katarzyna Velazquez LPN - Fully Assessed Reason for Visit: inflammed navel [Other] Primary Visit Diagnosis:Umbilicus discharge [R19.8] Other Visit Diagnosis:Common wart [B07.8] Prescriptions as of 09/29/2024 - memantine (NAMENDA) 10 mg tablet Take 1 tablet by mouth two times a day. - memantine (NAMENDA) 10 mg/5 mL oral liquid 5ml po twice daily - cholestyramine (QUESTRAN) 4 gram packet Take 1 packet by mouth three times a day with meals. - donepezil (ARICEPT) 10 mg tablet Take 1 tablet by mouth daily after breakfast. - levothyroxine (SYNTHROID) 25 mcg tablet Take 1 tablet by mouth once daily. - rosuvastatin (CRESTOR) 10 mg tablet Take 1 tablet by mouth daily at bedtime. - colestipol (COLESTID) 1 gram tablet Take 1 tablet by mouth two times a day. Facility-Administered Medications as of 09/29/2024 - denosumab 60 mg injection (PROLIA) Meds Comments as of 03/08/2015: Ebony Noah Problem List As Of Date 09/29/2024 Noted Resolved Age-related osteoporosis without current pathol*02/06/2005 Dysmetabolic syndrome X [E88.810] 07/10/2006 03/08/2017 Spastic Colitis [K58.9] 02/24/2009 Diarrhea [R19.7] 04/12/2009 03/08/2016 Secondary hyperparathyroidism (HCC) [N25.81] 08/02/2010 03/08/2017 Vaginal dryness [N89.8] 11/26/2013 11/30/2014 Vitamin D deficiency [E55.9] 01/19/2014 Postmenopausal atrophic vaginitis [N95.2] 11/30/2014 Osteopenia [M85.80] 03/08/2015 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] 03/08/2015 Essential tremor [G25.0] 03/08/2016 Hypercalcemia [E83.52] 03/13/2018 08/25/2019 (more content not included)... Normal [facility] Susie 09-10-2024 MARCELAN Telephone (INTMWS) FOINA GRUBER ([id number]) 1940 F T Date Time Provider Department 09/10/24 ASHLEY ROBERSON During your visit today, we recorded the following information about you: Shanell LylesMARCOS 09/10/2024 1:57 PM Signed Patient Dong chinmay since the PA for Memantine was denied. said it would cost almost 6 hundred dollars for a 90 day rx, asking if there is another medication that would not be so costly? Patient uses [facility] for [facility]. Please advise Ashley Roberson MD 09/10/2024 4:43 PM Signed Unfortunately none that we know of I will ask my pharmacist to see if she has any ideas Regards, [facility], Memantine is costing them 600 dollars. Is there anything we can give that would not cost as much to the patient? Regards, Mary Anderson MD, [facility] 09/11/2024 10:43 AM Signed Using a GoodRx coupon, she could get a 360 mL bottle of memantine 2mg/mL (36 day supply) for ~$144 at [facility]. A 3 month supply would be ~$432. That is still very expensive, but would this be affordable for the patient? [facility] coupon: I noticed on the med list that she takes some pills. Any chance she would be able to take memantine 10mg tablets and take those if they were crushed and mixed with applesauce? That would be the most economical option if possible. Mary Omalley, PharmD, [facility] Primary Care Clinical Pharmacist Radha Mario RN 09/11/2024 4:32 PM Signed Spouse returns call and messages below reviewed. Spouse reports that patient would be able to take medication in applesauce crushed and requests that prescription be sent to [facility]. TYRON Kelly Brittany L, MA 09/12/2024 9:28 AM Signed The following approved medication requests have been transmitted electronically. Requested Prescriptions Signed Prescriptions Disp Refills memantine (NAMENDA) 10 mg tablet 60 tablet 3 Sig: Take 1 tablet by mouth two times a day. Authorizing Provider: ASHLEY ROBERSON MA Allergies As of Date: 09/10/2024 Noted Allergy Reaction AMOXICILLIN 05/04/2005 4 - Hives Comments: GI upset OXYCODONE 07/12/2021 8 - GI Upset PENICILLINS 11/11/2018 4 - Hives SEASONAL ALLERGIES 07/07/2021 9 - Itching Comments: Fall Date Reviewed: 08/19/2024 Reviewed by: Patti Oakes LPN - Fully Assessed Reason for Visit: Medication Question [7978] Primary Visit Diagnosis:Dementia without behavioral disturbance (HCC) [F03.90] Order(s):memantine (NAMENDA) 10 mg tabletTake 1 tablet by mouth two times a day.Disp: 60 tabletRfl: 3 Prescriptions as of 09/12/2024 - memantine (NAMENDA) 10 mg tablet Take 1 tablet by mouth two times a day. - memantine (NAMENDA) 10 mg/5 mL oral liquid 5ml po twice daily - cholestyramine (QUESTRAN) 4 gram packet Take 1 packet by mouth three times a day with meals. - donepezil (ARICEPT) 10 mg tablet Take 1 tablet by mouth daily after breakfast. - levothyroxine (SYNTHROID) 25 mcg tablet Take 1 tablet by mouth once daily. - rosuvastatin (CRESTOR) 10 mg tablet Take 1 tablet by mouth daily at bedtime. - colestipol (COLESTID) 1 gram tablet Take 1 tablet by mouth two times a day. - ubidecarenone/vitamin E mixed (COQ10 SG 100 ORAL) Take 1 tablet by mouth once daily. - Ascorbic Acid (VITAMIN C) powd Take 1 Each by mouth once daily. - acetaminophen (TYLENOL) 325 mg tablet Take 2 tablets by mouth every 4 hours as needed for pain (acute post operative pain). Facility-Administered Medications as of 09/12/2024 - denosumab 60 mg injection (PROLIA) Meds Comments as of 03/08/2015: Ebony Zamora Problem List As Of Date 09/10/2024 Noted Resolved Age-related osteoporosis without current pathol*02/06/2005 Dysmetabolic syndrome X [E88.810] 07/10/2006 03/08/2017 Spastic Colitis [K58.9] 02/24/2009 Diarrhea [R19.7] 04/12/2009 03/08/2016 Secondary hyperparathyroidism (HCC) [N25.81] 08/02/2010 03/08/2017 Vaginal dryness [N89.8] 11/26/2013 11/30/2014 Vitamin D deficiency [E55.9] 01/19/2014 Postmenopausal atrophic vaginitis [N95.2] 11/30/2014 Osteopenia [M85.80] 03/08/2015 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] 03/08/2015 Essential tremor [G25.0] 03/08/2016 Hypercalcemia [E83.52] 03/13/2018 08/25/2019 High vitamin D level [E67.3] 03/13/2018 Rotator cuff arthropathy of both shoulders [M12*09/20/2018 Essential hypertension [I10] 08/18/2019 CKD (chronic kidney disease), stage III (HCC) [*08/18/2019 DEMETRA (acute kidney injury) (HCC) [N17.9] 08/18/2019 08/25/2019 Vitamin B 12 deficiency [E53.8] 08/18/2019 08/25/2019 Fatigue [R53.83] 11/18/2019 Elevated LFTs [R79.89] 11/18/2019 Mold exposure [Z77.120] 11/18/2019 B-complex deficiency [E53.9] 01/29/2020 Essential fatty acid (EFA) deficiency [E63.0] 01/29/2020 Exposure to mercury [Z77.018] 01/29/2020 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 [facility] CNPMariah 09-09-2024 CNPN Telephone (FAMPWS) FIONA GRUBER ([id number]) 1940 F CHT Date Time Provider Department 09/09/24 ASHLEY ROBERSON FAMPWS During your visit today, we recorded the following information about you: Shannan Santos LPN 09/09/2024 9:05 AM Signed Pt's calls to report that Namenda 10 mg/5 ml is a Tier 5 and the cost is $1,000 a month. Insurance advised that they would split the cost so pt's portion would be $500 a month. reports that is still too expensive. Insurance advised if dr would call: [phone] and speak to insurance that it could be moved to a Tier 4 and then would cost $110. is asking if office will do this. PRIOR AUTHORIZATION Medication for Prior Authorization: Namenda Other formulary meds available : unknown Insurance Company: [employer] phone number: [phone] Patient insurance ID number: [id number] MARCOS Sweeney Janice, LPN 09/09/2024 9:45 AM Signed [facility]. They report the memantine is a tier 4. They do not know the cost if the tier reduction is decreased to a tier 3. Clinical questions reviewed over the phone. They report 24-72 hours for review. They will fax response to the office and call and mail results to pt. This case number is [id number]. Radha Mario RN 09/09/2024 2:33 PM Signed Spouse calls to report that he was contacted by insurance to let them know that the request has been denied for memantine. Spouse aware that we are waiting on faxed response. TYRON Kelly Janice, LPN 09/09/2024 2:57 PM Signed Fax rec'd and yes it was denied. Denial is in scanned documents. Allergies As of Date: 09/09/2024 Noted Allergy Reaction AMOXICILLIN 05/04/2005 4 - Hives Comments: GI upset OXYCODONE 07/12/2021 8 - GI Upset PENICILLINS 11/11/2018 4 - Hives SEASONAL ALLERGIES 07/07/2021 9 - Itching Comments: Fall Date Reviewed: 08/19/2024 Reviewed by: Patti Oakes LPN - Fully Assessed Reason for Visit: Insurance Authorization [[id number]] Prescriptions as of 09/10/2024 - memantine (NAMENDA) 10 mg/5 mL oral liquid 5ml po twice daily - cholestyramine (QUESTRAN) 4 gram packet Take 1 packet by mouth three times a day with meals. - donepezil (ARICEPT) 10 mg tablet Take 1 tablet by mouth daily after breakfast. - levothyroxine (SYNTHROID) 25 mcg tablet Take 1 tablet by mouth once daily. - rosuvastatin (CRESTOR) 10 mg tablet Take 1 tablet by mouth daily at bedtime. - colestipol (COLESTID) 1 gram tablet Take 1 tablet by mouth two times a day. - ubidecarenone/vitamin E mixed (COQ10 SG 100 ORAL) Take 1 tablet by mouth once daily. - Ascorbic Acid (VITAMIN C) powd Take 1 Each by mouth once daily. - acetaminophen (TYLENOL) 325 mg tablet Take 2 tablets by mouth every 4 hours as needed for pain (acute post operative pain). Facility-Administered Medications as of 09/10/2024 - denosumab 60 mg injection (PROLIA) Meds Comments as of 03/08/2015: Ebony Zamora Problem List As Of Date 09/09/2024 Noted Resolved Age-related osteoporosis without current pathol*02/06/2005 Dysmetabolic syndrome X [E88.810] 07/10/2006 03/08/2017 Spastic Colitis [K58.9] 02/24/2009 Diarrhea [R19.7] 04/12/2009 03/08/2016 Secondary hyperparathyroidism (HCC) [N25.81] 08/02/2010 03/08/2017 Vaginal dryness [N89.8] 11/26/2013 11/30/2014 Vitamin D deficiency [E55.9] 01/19/2014 Postmenopausal atrophic vaginitis [N95.2] 11/30/2014 Osteopenia [M85.80] 03/08/2015 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] 03/08/2015 Essential tremor [G25.0] 03/08/2016 Hypercalcemia [E83.52] 03/13/2018 08/25/2019 High vitamin D level [E67.3] 03/13/2018 Rotator cuff arthropathy of both shoulders [M12*09/20/2018 Essential hypertension [I10] 08/18/2019 CKD (chronic kidney disease), stage III (HCC) [*08/18/2019 DEMETRA (acute kidney injury) (HCC) [N17.9] 08/18/2019 08/25/2019 Vitamin B 12 deficiency [E53.8] 08/18/2019 08/25/2019 Fatigue [R53.83] 11/18/2019 Elevated LFTs [R79.89] 11/18/2019 Mold exposure [Z77.120] 11/18/2019 B-complex deficiency [E53.9] 01/29/2020 Essential fatty acid (EFA) deficiency [E63.0] 01/29/2020 Exposure to mercury [Z77.018] 01/29/2020 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 Dementia without behavioral disturbance (HCC) [*02/20/2020 Hypothyroidism, acquired [E03.9] 05/22/2020 Abnormal finding on thyroid function test [R94.*03/31/2021 Acute confusion [R41.0] 03/31/2021 Osteopenia determined by x-ray [M85.80] 03/31/2021 Vitamin D toxicity [T45.2X1A] 03/31/2021 Cerebral amyloid angiopathy (CODE) [I68.0] 06/06/2021 Cerebral microvascular disease [I67.89] 06/09/2021 Closed nondisplaced fracture of sixth cervical *06/22/2021 Closed nondisplaced fracture of seventh cervica*06/22/2021 Closed fracture of transverse process of cervic*06/22/2021 Fall [W19.XXXA] 06/22/2021 06/22/2021 C6 cer (more content not included)... [facility] Susie 09-08-2024 CNPN Telephone (ARIELWS) FIONA GRUBER ([id number]) 1940 F CHT Date Time Provider Department 09/08/24 YVONNE VALENTE During your visit today, we recorded the following information about you: Yvonne Valente APRN.MARCELA 09/08/2024 3:13 PM Signed Please fax namenda prescription to [facility] as our system will not eprescribe this. Thank you Yvonne Valente APRN.ICT ACCOUNT MANAGER Tsering LooHUGH 09/08/2024 3:14 PM Signed Faxed to [facility]. Allergies As of Date: 09/08/2024 Noted Allergy Reaction AMOXICILLIN 05/04/2005 4 - Hives Comments: GI upset OXYCODONE 07/12/2021 8 - GI Upset PENICILLINS 11/11/2018 4 - Hives SEASONAL ALLERGIES 07/07/2021 9 - Itching Comments: Fall Date Reviewed: 08/19/2024 Reviewed by: Patti Oakes LPN - Fully Assessed Visit Diagnosis:Dementia without behavioral disturbance, psychotic disturbance, mood disturbance, or anxiety, unspecified dementia severity, unspecified dementia type (HCC) [F03.90] Prescriptions as of 09/08/2024 - memantine (NAMENDA) 10 mg/5 mL oral liquid 5ml po twice daily - cholestyramine (QUESTRAN) 4 gram packet Take 1 packet by mouth three times a day with meals. - donepezil (ARICEPT) 10 mg tablet Take 1 tablet by mouth daily after breakfast. - levothyroxine (SYNTHROID) 25 mcg tablet Take 1 tablet by mouth once daily. - rosuvastatin (CRESTOR) 10 mg tablet Take 1 tablet by mouth daily at bedtime. - colestipol (COLESTID) 1 gram tablet Take 1 tablet by mouth two times a day. - ubidecarenone/vitamin E mixed (COQ10 SG 100 ORAL) Take 1 tablet by mouth once daily. - Ascorbic Acid (VITAMIN C) powd Take 1 Each by mouth once daily. - acetaminophen (TYLENOL) 325 mg tablet Take 2 tablets by mouth every 4 hours as needed for pain (acute post operative pain). Facility-Administered Medications as of 09/08/2024 - denosumab 60 mg injection (PROLIA) Meds Comments as of 03/08/2015: Ebony Zamora Problem List As Of Date 09/08/2024 Noted Resolved Age-related osteoporosis without current pathol*02/06/2005 Dysmetabolic syndrome X [E88.810] 07/10/2006 03/08/2017 Spastic Colitis [K58.9] 02/24/2009 Diarrhea [R19.7] 04/12/2009 03/08/2016 Secondary hyperparathyroidism (HCC) [N25.81] 08/02/2010 03/08/2017 Vaginal dryness [N89.8] 11/26/2013 11/30/2014 Vitamin D deficiency [E55.9] 01/19/2014 Postmenopausal atrophic vaginitis [N95.2] 11/30/2014 Osteopenia [M85.80] 03/08/2015 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] 03/08/2015 Essential tremor [G25.0] 03/08/2016 Hypercalcemia [E83.52] 03/13/2018 08/25/2019 High vitamin D level [E67.3] 03/13/2018 Rotator cuff arthropathy of both shoulders [M12*09/20/2018 Essential hypertension [I10] 08/18/2019 CKD (chronic kidney disease), stage III (HCC) [*08/18/2019 DEMETRA (acute kidney injury) (HCC) [N17.9] 08/18/2019 08/25/2019 Vitamin B 12 deficiency [E53.8] 08/18/2019 08/25/2019 Fatigue [R53.83] 11/18/2019 Elevated LFTs [R79.89] 11/18/2019 Mold exposure [Z77.120] 11/18/2019 B-complex deficiency [E53.9] 01/29/2020 Essential fatty acid (EFA) deficiency [E63.0] 01/29/2020 Exposure to mercury [Z77.018] 01/29/2020 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 Dementia without behavioral disturbance (HCC) [*02/20/2020 Hypothyroidism, acquired [E03.9] 05/22/2020 Abnormal finding on thyroid function test [R94.*03/31/2021 Acute confusion [R41.0] 03/31/2021 Osteopenia determined by x-ray [M85.80] 03/31/2021 Vitamin D toxicity [T45.2X1A] 03/31/2021 Cerebral amyloid angiopathy (CODE) [I68.0] 06/06/2021 Cerebral microvascular disease [I67.89] 06/09/2021 Closed nondisplaced fracture of sixth cervical *06/22/2021 Closed nondisplaced fracture of seventh cervica*06/22/2021 Closed fracture of transverse process of cervic*06/22/2021 Fall [W19.XXXA] 06/22/2021 06/22/2021 C6 cervical fracture (HCC) [S12.500A] 07/07/2021 At high risk for fracture [Z91.89] 01/23/2023 Balance disorder [R26.89] 07/17/2023 Encounter Status:Closed by TSERING LOO on 09/08/24 [facility] CT BRAIN WO IVCONon 08-28-19 CT BRAIN WO IVCON * * *Final Report* * * DATE OF EXAM: Aug 27 2024 12:01PM [facility] 0504 - CT BRAIN WO IVCON / PROCEDURE REASON: Fall, sequela * * * * Physician Interpretation * * * * CT BRAIN WO IVCON HISTORY: Fall, sequela TECHNIQUE: Serial axial images without IV contrast were obtained from the vertex to the foramen magnum. MQ: [id number]_[id number] CT Radiation dose: Integrated Dose-Length Product (DLP) for this visit = 719 mGy*cm CT Dose Reduction Employed: Automated exposure control(AEC) and iterative recon COMPARISON: MRI brain 12/15/2023 and prior. RESULT: Localizer images: No additional findings. Post-operative change: None. Acute change: No evidence of an acute infarct. Hemorrhage: The innumerable microhemorrhages and sequela of prior subarachnoid hemorrhage demonstrated on the prior MRI are not well visualized on CT. No evidence of acute hemorrhage. ECASS hemorrhagic transformation score: Not Applicable Mass Lesion / Mass Effect: There is no evidence of an intracranial mass or extraaxial fluid collection. No significant mass effect. White matter: There is hypoattenuation in the left superior frontal region centered in the left precentral gyrus, which has mildly progressed more notably since 05/16/2021. Patchy white matter hypoattenuation is otherwise prior, mostly chronic microvascular ischemic changes. Parenchyma: There is mild to moderate generalized volume loss. Ventricles: Ventricular enlargement concordant with the degree of parenchymal volume loss. Paranasal sinuses and skull base: The visualized paranasal sinuses are grossly clear. The skull base and imaged soft tissues are unremarkable. 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 No evidence of acute intracranial hemorrhage. COMMUNICATION: Communicated with DR. ASHLEY ROBERSON on 08/27/2024 12:38 PM via verbal communication. [facility] Transcribe Date/Time: Aug 27 2024 12:17P Dictated by : KENAN ERVIN MD This examination was interpreted and the report reviewed and electronically signed by: KENAN ERVIN MD on Aug 27 2024 12:41PM EST [id number] [facility] CNOVon 08-19-2024 CNOV Office Visit (INTMWS ) FIONA GRUBER ([id number]) 1940 F [facility] Date Time Provider Department 08/19/24 9:40 AM ASHLEY ROBERSON INTMWS During your visit today, we recorded the following information about you: Pulse Blood pressure Weight Height 102/minute 110/73 59.9 kg 1.626 m Ashley Roberson MD 08/19/2024 10:22 AM Signed We discussed your recent fall: - You fell out of bed on Sunday night, landing on your side and hitting your head. You do not have a headache or any signs of a serious injury at this time. - I examined you and found no evidence of fractures or significant injuries. Your joints, shoulders, and neck appear to be fine, and there is no pain with movement. - If you develop a headache, confusion, dizziness, or any other concerning symptoms, please let me know immediately, as we may need to perform a CT scan of your head to rule out internal bleeding. - A bed rail has been ordered and will arrive soon. This will help prevent future falls and provide support when getting in and out of bed. Please use it once it is installed. We discussed your diarrhea: - Continue taking the cholestyramine (Questran) powder once daily in the morning. - If your stools become very loose or watery, you may increase the dose to twice daily until symptoms improve, then return to once daily. - Let me know if your diarrhea persists or worsens despite these adjustments. We discussed your medications: - Continue taking Namenda (memantine) 5 mL twice daily as prescribed. - If you need a refill, I can provide it for you. We discussed your knee pain: - Your knees continue to bother you, likely due to your history of partial knee replacements. If the pain worsens or becomes unmanageable, let me know so we can explore additional treatment options. Follow-Up: - Please monitor for any new or worsening symptoms, especially after your fall. Contact me if you experience a headache, confusion, or other concerning changes. - Adjust your cholestyramine dose as needed based on your symptoms, and let me know if you have any issues. - If you have any questions or concerns, please call our office. Ashley Roberson MD 08/19/2024 11:06 AM Signed Reason for Visit Fall KATHERINE Jaimes is a 84-year-old female, with a history of dementia, presenting for evaluation after a fall from bed. Fiona fell from her goodwin-sized bed at approximately 0330 on Sunday night. She reports attempting to sit up on the edge of the bed but scooted too far, resulting in a fall onto her side. She landed on her hand and then her head, with her head reportedly hitting the shelf of the nightstand. She denies loss of consciousness and was able to recall the event. She denies current cephalalgia but reports a sore spot on the side of her head, particularly above the ears. She also reports pain in her hand, which she attributes to the fall. She denies any visible bruising on her head. Fiona has a history of knee pain, which she reports has been worsening. She has had partial knee replacements in the past, which provided temporary relief. She also reports chronic neck pain, which is exacerbated by cold weather. She uses a neck covering at home to keep warm. Fiona has a history of diarrhea, for which she is taking cholestyramine powder once daily in the morning. She reports that the medication has been effective in managing her symptoms, but she experienced episodes of diarrhea recently despite not missing any doses. She also takes Namenda 5 mL twice daily for dementia. She denies any changes in her cognitive function since the fall. Fiona has ordered a bed rail to prevent future falls and is trying to sleep in the center of the bed to avoid getting too close to the edge. She also wears a life alert system for fall detection. Social History Tobacco Use Smoking status: Never Smokeless tobacco: Never Vaping Use Vaping status: Never Used Substance Use Topics Alcohol use: Yes Comment: Occasionally wine Drug use: No Past medical history, appointments, medications, allergies reviewed. Pertinent Lab/Diagnostic Studies are reviewed and discussed today Current Outpatient Medications: donepezil (ARICEPT) 10 mg tablet levothyroxine (SYNTHROID) 25 mcg tablet rosuvastatin (CRESTOR) 10 mg tablet cholestyramine (QUESTRAN) 4 gram packet colestipol (COLESTID) 1 gram tablet memantine (NAMENDA) 10 mg/5 mL oral liquid ubidecarenone/vitamin E mixed (COQ10 SG 100 ORAL) Ascorbic Acid (VITAMIN C) powd acetaminophen (TYLENOL) 325 mg tablet Current Facility-Administered Medications: denosumab 60 mg injection (PROLIA) Health Maintenance Bone Density Screening Advance Directive Discussion Covid-19 Vaccine( season)@ Review Of Systems Head: (+) head injury, (-) headache Neck: (+) neck pain Gastrointestinal: (+) diarrhea Musculoskeletal: ( (more content not included)... [facility] Lipid 1996 panelon 5 Cholesterol [Mass/Vol] 138 mg/dL Normal <200 Cl [facility] Comment on above: Order Comment: Speci men Type: BLOOD SPECIMENOrdering Facility: [facility] Address: [address] [place] [address] Result Comment: <200 mg/dL, Desirable 200-239 mg/dL, Borderline high >239 mg/dL, High Performed By: #### 2 4331-1, 3016-3 ####[facility] LABCLIA [id number] [facility] [id number] [facility] Cholesterol in HDL [Mass/Vol] 72 mg/dL Normal >39 [facility] Comment on above: Order Comment: Ruthbrinda whiting Type: BLOOD SPECIMENOrdering Facility: [facility] Address: [address] [place] [address] Result Comment: 40-5 9 mg/dL, Acceptable >59 mg/dL, High: Negative risk factor for coronary heart disease <40 mg/dL, Low: Positive risk factor for coronary heart disease Performed By: #### 2 4331-1, 6-3 ####[facility] LABCLIA [id number] [address] Cholesterol in LDL [Mass/Vol] 53 mg/dL Normal <100 [facility] Comment on above: Order Comment: Steph johanne Type: BLOOD SPECIMENOrdering Facility: [facility] Address: [address] [place] [address] Result Comment: <100 mg/dL, Optimal 100-129 mg/dL, Near optimal/above optimal 130-159 mg/dL, Borderline high 160-189 mg/dL, High >189 mg/dL, Very high Secondary prevention optimal LDL Cholesterol levels are recommended to be <70 mg/dL LDL cholesterol is calculated using the Cortez-NIH equation. Performed By: #### 2 4331-1, 6-3 ####[facility] LABCLIA [id number] [place] [id number] [facility] Cholesterol in LDL/Cholesterol in HDL [Mass ratio] 0.74 {ratio} Normal <2.54 [facility] Comment on above: Order Comment: Ruthbrinda whiting Type: BLOOD SPECIMENOrdering Facility: [facility] Address: [address] [place] [address] Result Comment: Homer kaba: 1. National Cholesterol Education Program ATP III Guideline At-A-Glance Quick Desk Reference: National Heart, Lung, and Blood Romeo. National Institutes of Health. 2001: NIH Publication No. 01-3305. 2. An International Atherosclerosis Society position paper: global recommendations for the management of dyslipidemia: executive summary, Atherosclerosis. 2014: 232(2):410-413. Performed By: #### 2 4331-1, 3015-3 ####[facility] LABCLIA [id number] [facility] [address] [place] [address] [place] Cholesterol in VLDL [Mass/Vol] 8 mg/dL Normal <30 [facility] Comment on above: Order Comment: Speci men Type: BLOOD SPECIMENOrdering Facility: [facility] Address: [address] [place], [place] [id number] Performed By: #### 2 4331-1, 3015- ####[facility] LABCLIA [id number] [facility] [address] [place] [address] [place] Cholesterol non HDL [Mass/Vol] 66 mg/dL Normal <130 [facility] Comment on above: Order Comment: Speci men Type: BLOOD SPECIMENOrdering Facility: [facility] Address: [address] [place] [address] Result Comment: <130 mg/dL, Optimal 130-159 mg/dL, Near optimal/above optimal 160-189 mg/dL, Borderline high 190-219 mg/dL, High >219 mg/dL, Very high Secondary prevention optimal non HDL Cholesterol levels are recommended to be <100 mg/dL Performed By: #### 2 4331-1, 3015-3 ####[facility] LABCLIA [id number] [facility] [address] [place] [address] [place] Cholesterol.total/Jeaneth sterol in HDL [Mass ratio] 1.92 {ratio} Normal <5.10 [facility] Comment on above: Order Comment: Speci men Type: BLOOD SPECIMENOrdering Facility: [facility] Address: [address] [place] [address] Performed By: #### 2 4331-1, 3015-06 ####[facility] LABCLIA [id number] [facility] [address] [place] [address] [place] FASTING TIME 12 hrs Normal [facility] Comment on above: Order Comment: Speci men Type: BLOOD SPECIMENOrdering Facility: [facility] Address: [address] [place] [address] Performed By: #### 2 4331-1, 6-3 ####[facility] LABCLIA [id number] [address] Triglyceride [Mass/Vol] 59 mg/dL Normal <150 C [facility] Comment on above: Order Comment: Speci men Type: BLOOD SPECIMENOrdering Facility: [facility] Address: [address] [place] [address] Result Comment: <150 mg/dL, Normal 150-199 mg/dL, Borderline high 200-499 mg/dL, High >499 mg/dL, Very high Performed By: #### 2 4331-1, 3015-3 ####[facility] LABIA [id number] [address] [place] TSH SerPl-aCncon 08-18-2024 TSH Qn 1.980 m[IU]/L Normal 0.270-4.200 [facility] Comment on above: Order Comment: Speci men Type: BLOOD SPECIMENOrdering Facility: [facility] Address: [address] [place] [address] Performed By: #### 2 4331-1, 3015-3 ####[facility] LABIA [id number] [place] [address] [place] CNOVon 07-17-2024 CNOV Office Visit (BRIANNA ) FIONA GRUBER ([id number]) 1940 F T Date Time Provider Department 07/17/24 11:00 AM ASHLEY ROBERSON During your visit today, we recorded the following information about you: Pulse Blood pressure Weight Height 102/minute 118/78 59 kg 1.626 m Ashley Roberson MD 07/17/2024 11:35 AM Signed Reason for Visit Diarrhea KATHERINE Jaimes is a 84-year-old female with a history of HTN, balance disorder, MTHFR gene mutation, hypothyroidism, osteoporosis, and CAA, presenting for follow-up on chronic diarrhea. Fiona has been experiencing chronic diarrhea, and was started on colestipol during the last visit. She reports that the medication has been effective in reducing the frequency of loose stools. However, she notes that she missed two doses recently, which coincided with episodes of loose stools, including one today prior to the visit. She denies any accidents and uses a pad for protection. Fiona has been consuming a diet that includes cheese, and her caregiver suspects that large quantities of cheese may be contributing to the diarrhea. She also reports occasional forgetfulness and asks about appointments multiple times. She is currently taking Aricept 5 mg and Namenda in liquid form, and her caregiver reports that she is tolerating these medications well. She engages in activities such as attending [employer] and singing, and plans to visit her sister for lunch today. Social History Tobacco Use Smoking status: Never Smokeless tobacco: Never Vaping Use Vaping status: Never Used Substance Use Topics Alcohol use: Yes Comment: Occasionally wine Drug use: No Past medical history, appointments, medications, allergies reviewed. Pertinent Lab/Diagnostic Studies are reviewed and discussed today Current Outpatient Medications: levothyroxine (SYNTHROID) 25 mcg tablet rosuvastatin (CRESTOR) 10 mg tablet cholestyramine (QUESTRAN) 4 gram packet colestipol (COLESTID) 1 gram tablet memantine (NAMENDA) 10 mg/5 mL oral liquid ubidecarenone/vitamin E mixed (COQ10 SG 100 ORAL) donepezil (ARICEPT) 10 mg tablet Ascorbic Acid (VITAMIN C) powd acetaminophen (TYLENOL) 325 mg tablet Current Facility-Administered Medications: denosumab 60 mg injection (PROLIA) Health Maintenance Bone Density Screening Advance Directive Discussion Covid-19 Vaccine( season)@ Review Of Systems Gastrointestinal: (+) diarrhea, (+) constipation Neurological: (+) forgetfulness Physical Exam BP 118/78 Pulse 102 Ht 162.6 cm (5' 4) Wt 59 kg (130 lb) SpO2 99% BMI 22.31 kg/m? GENERAL: NAD, alert and oriented SKIN: unremarkable, no rash or skin lesions. HEAD: normocephalic EYES: PERRLA, EOMI, conjunctiva clear EARS: external ears normal, canals clear, TM's normal. NOSE/SINUSES: Nares normal. Septum midline. OROPHARYNX: lips, mucosa, and tongue normal, good dentition. No oral lesions noted. NECK: Supple, no lymphadenopathy, normal thyroid, no carotid bruits. LUNGS: Clear to auscultation bilaterally, no wheezes/rhonchi/rales. HEART: Regular rate and rhythm, no murmurs. No ectopy. EXTREMITIES: Normal, No deformities, No skin discoloration, No edema. NEURO: Awake, alert and oriented x3, cranial nerves II-XII grossly intact, normal gait, no involuntary motions Labs: - Stool test for Clostridium difficile: Negative - WBC: Negative Assessment and Plan 1. 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 Dietary intake includes significant amounts of cheese, which may contribute to symptoms. - Continue colestipol as needed. - Advised reducing large quantities of cheese in the diet to potentially decrease diarrhea episodes. 2. Moderate late onset Alzheimer's dementia without behavioral disturbance, psychotic disturbance, mood disturbance, or anxiety (HCC) (G30.1) Currently managed with Aricept 5 mg and Namenda. Patient exhibits forgetfulness and repetitive questioning. - Increase Aricept to 10 mg daily; instructed to take after breakfast. - Sent prescription to [facility]. - Follow-up in 3 months. 3. Hypothyroidism, unspecified type (E03.9) Condition is stable. Voice recognition software was used to compose this office note. Please excuse any unintended typographical errors. The patient consented to the use of ambient AI software for draft documentation of the visit consistent with [facility]?s Notice of Privacy Practices. Ashley Roberson, MD Ashley 07/17/2024 11:29 AM Signed We discussed your diarrhea: - Continue taking colestipol as needed to manage diarrhea. It appears to be helping when taken consistently. - Avoid large quantities of cheese, as this may be contributing to your symptoms. For example, broccoli and cheese soup or pizza with multiple types of c (more content not included)... [facility] CNNURSEon 06-23-2024 [facility] Nurse Visit (FAMPWS) FIONA GRUBER ([id number]) 1940 F [facility] Date Time Provider Department 06/23/24 10:45 AM [facility] your visit today, we recorded the following information about you: KAILEE CASTILLO 06/23/2024 10:45 AM Signed Patient presents for Prolia injection. Denies any problems at this time. Patient instructed on any SE of medication, verbalized understanding and agreed to proceed with treatment. Tolerated injection well. Kailee Castilol LPN Referring Provider: LUANNE CRAIG [[id number]] Allergies As of Date: 06/23/2024 Noted Allergy Reaction AMOXICILLIN 05/04/2005 4 - Hives Comments: GI upset OXYCODONE 07/12/2021 8 - GI Upset PENICILLINS 11/11/2018 4 - Hives SEASONAL ALLERGIES 07/07/2021 9 - Itching Comments: Fall Date Reviewed: 05/13/2024 Reviewed by: Patti Oakes LPN - Fully Assessed Reason for Visit: Imm/Inj [58] Primary Visit Diagnosis:Osteopenia of multiple sites [M85.89] Prescriptions as of 06/23/2024 - levothyroxine (SYNTHROID) 25 mcg tablet Take 1 tablet by mouth once daily. - rosuvastatin (CRESTOR) 10 mg tablet Take 1 tablet by mouth daily at bedtime. - donepezil (ARICEPT) 5 mg tablet Take 1 tablet by mouth daily with breakfast. - cholestyramine (QUESTRAN) 4 gram packet Take 1 Packet by mouth three times a day with meals. - colestipol (COLESTID) 1 gram tablet Take 1 tablet by mouth two times a day. - memantine (NAMENDA) 10 mg/5 mL oral liquid 5ml po twice daily - ubidecarenone/vitamin E mixed (COQ10 SG 100 ORAL) Take 1 tablet by mouth once daily. - Ascorbic Acid (VITAMIN C) powd Take 1 Each by mouth once daily. - acetaminophen (TYLENOL) 325 mg tablet Take 2 tablets by mouth every 4 hours as needed for pain (acute post operative pain). Facility-Administered Medications as of 06/23/2024 - denosumab 60 mg injection (PROLIA) Meds Comments as of 03/08/2015: Ebony Noah Problem List As Of Date 06/23/2024 Noted Resolved Age-related osteoporosis without current pathol*02/06/2005 Dysmetabolic syndrome X [E88.810] 07/10/2006 03/08/2017 Spastic Colitis [K58.9] 02/24/2009 Diarrhea [R19.7] 04/12/2009 03/08/2016 Secondary hyperparathyroidism (HCC) [N25.81] 08/02/2010 03/08/2017 Vaginal dryness [N89.8] 11/26/2013 11/30/2014 Vitamin D deficiency [E55.9] 01/19/2014 Postmenopausal atrophic vaginitis [N95.2] 11/30/2014 Osteopenia [M85.80] 03/08/2015 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] 03/08/2015 Essential tremor [G25.0] 03/08/2016 Hypercalcemia [E83.52] 03/13/2018 08/25/2019 High vitamin D level [E67.3] 03/13/2018 Rotator cuff arthropathy of both shoulders [M12*09/20/2018 Essential hypertension [I10] 08/18/2019 CKD (chronic kidney disease), stage III (HCC) [*08/18/2019 DEMETRA (acute kidney injury) (HCC) [N17.9] 08/18/2019 08/25/2019 Vitamin B 12 deficiency [E53.8] 08/18/2019 08/25/2019 Fatigue [R53.83] 11/18/2019 Elevated LFTs [R79.89] 11/18/2019 Mold exposure [Z77.120] 11/18/2019 B-complex deficiency [E53.9] 01/29/2020 Essential fatty acid (EFA) deficiency [E63.0] 01/29/2020 Exposure to mercury [Z77.018] 01/29/2020 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 Dementia without behavioral disturbance (HCC) [*02/20/2020 Hypothyroidism, acquired [E03.9] 05/22/2020 Abnormal finding on thyroid function test [R94.*03/31/2021 Acute confusion [R41.0] 03/31/2021 Osteopenia determined by x-ray [M85.80] 03/31/2021 Vitamin D toxicity [T45.2X1A] 03/31/2021 Cerebral amyloid angiopathy (CODE) [I68.0] 06/06/2021 Cerebral microvascular disease [I67.89] 06/09/2021 Closed nondisplaced fracture of sixth cervical *06/22/2021 Closed nondisplaced fracture of seventh cervica*06/22/2021 Closed fracture of transverse process of cervic*06/22/2021 Fall [W19.XXXA] 06/22/2021 06/22/2021 C6 cervical fracture (HCC) [S12.500A] 07/07/2021 At high risk for fracture [Z91.89] 01/23/2023 Balance disorder [R26.89] 07/17/2023 Encounter Status:Closed by KAILEE CASTILLO on 06/23/24 [facility] Bone density reportOrdered B y: James Bell on 06-17-2024 Study report Skeletal system DXA [facility] Imaging Services [address] [place], [place] [id number] Dexa Bone Density Study MR#: [id number] Acct: [id number] Name: FIONA GRUBER Rep #: [id number] : 1940 F 84 From: Gaudencio Bell MD PCP: Dr. Ashley Roberson MD Status: KELLIE RENTERIA Study:Dexa Bone Density Study Date of Exam: 06/17/24 Exam# [id number] Ordering Dr: Michela Roberson MD PROCEDURE: DEXA BONE DENSITY STUDY REASON FOR EXAM: F, age 84 y/o . Postmenopausal. TECHNIQUE: DEXA scan of the lumbar spine and both hips. COMPARISON: Comparison is made with prior study dated January 17, 2022. FINDINGS: Lumbar Spine (L1-L4): g/cm2 (0.826)/T-score (-2.0)/Z-score (0.8) findings are suggestive of osteopenia with a moderate fracture risk. Left Femur Total: g/cm2 (0.810)/T-score (-1.1)/Z-score (1.2) Left Femoral Neck: g/cm2 (0.844)/T-score (0.0)/Z-score (2.4) Right Femur Total: g/cm2 (0.781)/T-score (-1.3)/Z-score (1.0) Right Femoral Neck: g/cm2 (0.814)/T-score (-0.3)/Z-score (2.2) The T-Scores on the most recent prior examination were: Lumbar Spine (L1-L4): There has been improvement of bone density since the previous examination. Left Femur Total: Improvement of 3.9%. Right Femur Total: Improvement of 4.4%. BD/Dexa Bone Density Study IMPRESSION: The patient is considered osteopenic as outlined below according to World Delgado Organization (WHO) criteria with a moderate fracture risk. There has been improvement of bone density since the previous examination. Reading Location: [place] [address] CC: Dr. Ashley Roberson MD ~ Neonatologist: Signed [facility] Dexa Bone Density Studyon Dexa Bone Density Study [facility] Imaging Services [address] [place] [id number] Dexa Bone Density Study MR#: [id number] Acct: [id number] Name: FIONA GRUBER Rep #: [id number] : 1940 F 84 From: James chacko MD PCP: Dr. Ashley Roberson MD Status: REG CLI Study: Dexa Bone Density Study Date of Exam: 06/17/24 Exam# [id number] Ordering Dr: Ashley Roberson MD PROCEDURE: DEXA BONE DENSITY STUDY REASON FOR EXAM: F, age 84 y/o . Postmenopausal. TECHNIQUE: DEXA scan of the lumbar spine and both hips. COMPARISON: Comparison is made with prior study dated January 17, 2022. FINDINGS: Lumbar Spine (L1-L4): g/cm2 (0.826)/T-score (-2.0)/Z-score (0.8) findings are suggestive of osteopenia with a moderate fracture risk. Left Femur Total: g/cm2 (0.810)/T-score (-1.1)/Z-score (1.2) Left Femoral Neck: g/cm2 (0.844)/T-score (0.0)/Z-score (2.4) Right Femur Total: g/cm2 (0.781)/T-score (-1.3)/Z-score (1.0) Right Femoral Neck: g/cm2 (0.814)/T-score (-0.3)/Z-score (2.2) The T-Scores on the most recent prior examination were: Lumbar Spine (L1-L4): There has been improvement of bone density since the previous examination. Left Femur Total: Improvement of 3.9%. Right Femur Total: Improvement of 4.4%. BD/Dexa Bone Density Study IMPRESSION: The patient is considered osteopenic as outlined below according to World Delgado Organization (WHO) criteria with a moderate fracture risk. There has been improvement of bone density since the previous examination. Reading Location: [place] [address] CC: Dr. Ashley Roberson MD Neonatologist: Signed [facility] 05-30-2024 [facility] Telephone (INTMWS) FIONA GRUBER ([id number]) 1940 F [facility] Date Time Provider Department 05/30/24 ASHLEY ROBERSON During your visit today, we recorded the following information about you: Chuy Nguyen RN 05/30/2024 11:25 AM Signed Faxed bone density orders to [facility] per request. Reports it's suppose to be done at the same place each time and patient's last one was done at [facility]. Allergies As of Date: 05/30/2024 Noted Allergy Reaction AMOXICILLIN 05/04/2005 4 - Hives Comments: GI upset OXYCODONE 07/12/2021 8 - GI Upset PENICILLINS 11/11/2018 4 - Hives SEASONAL ALLERGIES 07/07/2021 9 - Itching Comments: Fall Date Reviewed: 05/13/2024 Reviewed by: Patti Oakes LPN - Fully Assessed Reason for Visit: Faxed to [facility] [Other] Prescriptions as of 05/30/2024 - colestipol (COLESTID) 1 gram tablet Take 1 tablet by mouth two times a day. - memantine (NAMENDA) 10 mg/5 mL oral liquid 5ml po twice daily - levothyroxine (SYNTHROID) 25 mcg tablet Take 1 tablet by mouth once daily. - rosuvastatin (CRESTOR) 10 mg tablet Take 1 tablet by mouth daily at bedtime. - ubidecarenone/vitamin E mixed (COQ10 SG 100 ORAL) Take 1 tablet by mouth once daily. - donepezil (ARICEPT) 5 mg tablet Take 1 tablet by mouth daily with breakfast. - Ascorbic Acid (VITAMIN C) powd Take 1 Each by mouth once daily. - acetaminophen (TYLENOL) 325 mg tablet Take 2 tablets by mouth every 4 hours as needed for pain (acute post operative pain). Facility-Administered Medications as of 05/30/2024 - denosumab 60 mg injection (PROLIA) Meds Comments as of 03/08/2015: Ebony Zamora Problem List As Of Date 05/30/2024 Noted Resolved Age-related osteoporosis without current pathol*02/06/2005 Dysmetabolic syndrome X [E88.810] 07/10/2006 03/08/2017 Spastic Colitis [K58.9] 02/24/2009 Diarrhea [R19.7] 04/12/2009 03/08/2016 Secondary hyperparathyroidism (HCC) [N25.81] 08/02/2010 03/08/2017 Vaginal dryness [N89.8] 11/26/2013 11/30/2014 Vitamin D deficiency [E55.9] 01/19/2014 Postmenopausal atrophic vaginitis [N95.2] 11/30/2014 Osteopenia [M85.80] 03/08/2015 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] 03/08/2015 Essential tremor [G25.0] 03/08/2016 Hypercalcemia [E83.52] 03/13/2018 08/25/2019 High vitamin D level [E67.3] 03/13/2018 Rotator cuff arthropathy of both shoulders [M12*09/20/2018 Essential hypertension [I10] 08/18/2019 CKD (chronic kidney disease), stage III (HCC) [*08/18/2019 DEMETRA (acute kidney injury) (HCC) [N17.9] 08/18/2019 08/25/2019 Vitamin B 12 deficiency [E53.8] 08/18/2019 08/25/2019 Fatigue [R53.83] 11/18/2019 Elevated LFTs [R79.89] 11/18/2019 Mold exposure [Z77.120] 11/18/2019 B-complex deficiency [E53.9] 01/29/2020 Essential fatty acid (EFA) deficiency [E63.0] 01/29/2020 Exposure to mercury [Z77.018] 01/29/2020 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 Dementia without behavioral disturbance (HCC) [*02/20/2020 Hypothyroidism, acquired [E03.9] 05/22/2020 Abnormal finding on thyroid function test [R94.*03/31/2021 Acute confusion [R41.0] 03/31/2021 Osteopenia determined by x-ray [M85.80] 03/31/2021 Vitamin D toxicity [T45.2X1A] 03/31/2021 Cerebral amyloid angiopathy (CODE) [I68.0] 06/06/2021 Cerebral microvascular disease [I67.89] 06/09/2021 Closed nondisplaced fracture of sixth cervical *06/22/2021 Closed nondisplaced fracture of seventh cervica*06/22/2021 Closed fracture of transverse process of cervic*06/22/2021 Fall [W19.XXXA] 06/22/2021 06/22/2021 C6 cervical fracture (HCC) [S12.500A] 07/07/2021 At high risk for fracture [Z91.89] 01/23/2023 Balance disorder [R26.89] 07/17/2023 Encounter Status:Closed by Chuy NGUYEN on 05/30/24 [facility] CNPNon 05-22-2024 [facility] Telephone (INTMWS) FIONA GRUBER ([id number]) 1940 F T Date Time Provider Department 05/22/24 ASHLEY ROBERSON INTWS During your visit today, we recorded the following information about you: Ena Martin 05/22/2024 12:48 PM Signed Spouse is requesting to have bone density order faxed to [facility]. Previous bone density scan was performed at their facility. Please fax to [phone]. Patti Oakes LPN 05/22/2024 3:29 PM Signed Faxed orders and face sheet to [facility] radiology per patient spouse request. Patti Oakes LPN May 22, 2024 3:29 PM Allergies As of Date: 05/22/2024 Noted Allergy Reaction AMOXICILLIN 05/04/2005 4 - Hives Comments: GI upset OXYCODONE 07/12/2021 8 - GI Upset PENICILLINS 11/11/2018 4 - Hives SEASONAL ALLERGIES 07/07/2021 9 - Itching Comments: Fall Date Reviewed: 05/13/2024 Reviewed by: Patti Oakes LPN - Fully Assessed Reason for Visit: External Referrals/resources [909] Cmt: Bone Density Prescriptions as of 05/22/2024 - colestipol (COLESTID) 1 gram tablet Take 1 tablet by mouth two times a day. - memantine (NAMENDA) 10 mg/5 mL oral liquid 5ml po twice daily - levothyroxine (SYNTHROID) 25 mcg tablet Take 1 tablet by mouth once daily. - rosuvastatin (CRESTOR) 10 mg tablet Take 1 tablet by mouth daily at bedtime. - ubidecarenone/vitamin E mixed (COQ10 SG 100 ORAL) Take 1 tablet by mouth once daily. - donepezil (ARICEPT) 5 mg tablet Take 1 tablet by mouth daily with breakfast. - Ascorbic Acid (VITAMIN C) powd Take 1 Each by mouth once daily. - acetaminophen (TYLENOL) 325 mg tablet Take 2 tablets by mouth every 4 hours as needed for pain (acute post operative pain). Facility-Administered Medications as of 05/22/2024 - denosumab 60 mg injection (PROLIA) Meds Comments as of 03/08/2015: Ebony Zamora Problem List As Of Date 05/22/2024 Noted Resolved Age-related osteoporosis without current pathol*02/06/2005 Dysmetabolic syndrome X [E88.810] 07/10/2006 03/08/2017 Spastic Colitis [K58.9] 02/24/2009 Diarrhea [R19.7] 04/12/2009 03/08/2016 Secondary hyperparathyroidism (HCC) [N25.81] 08/02/2010 03/08/2017 Vaginal dryness [N89.8] 11/26/2013 11/30/2014 Vitamin D deficiency [E55.9] 01/19/2014 Postmenopausal atrophic vaginitis [N95.2] 11/30/2014 Osteopenia [M85.80] 03/08/2015 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] 03/08/2015 Essential tremor [G25.0] 03/08/2016 Hypercalcemia [E83.52] 03/13/2018 08/25/2019 High vitamin D level [E67.3] 03/13/2018 Rotator cuff arthropathy of both shoulders [M12*09/20/2018 Essential hypertension [I10] 08/18/2019 CKD (chronic kidney disease), stage III (HCC) [*08/18/2019 DEMETRA (acute kidney injury) (HCC) [N17.9] 08/18/2019 08/25/2019 Vitamin B 12 deficiency [E53.8] 08/18/2019 08/25/2019 Fatigue [R53.83] 11/18/2019 Elevated LFTs [R79.89] 11/18/2019 Mold exposure [Z77.120] 11/18/2019 B-complex deficiency [E53.9] 01/29/2020 Essential fatty acid (EFA) deficiency [E63.0] 01/29/2020 Exposure to mercury [Z77.018] 01/29/2020 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 Dementia without behavioral disturbance (HCC) [*02/20/2020 Hypothyroidism, acquired [E03.9] 05/22/2020 Abnormal finding on thyroid function test [R94.*03/31/2021 Acute confusion [R41.0] 03/31/2021 Osteopenia determined by x-ray [M85.80] 03/31/2021 Vitamin D toxicity [T45.2X1A] 03/31/2021 Cerebral amyloid angiopathy (CODE) [I68.0] 06/06/2021 Cerebral microvascular disease [I67.89] 06/09/2021 Closed nondisplaced fracture of sixth cervical *06/22/2021 Closed nondisplaced fracture of seventh cervica*06/22/2021 Closed fracture of transverse process of cervic*06/22/2021 Fall [W19.XXXA] 06/22/2021 06/22/2021 C6 cervical fracture (HCC) [S12.500A] 07/07/2021 At high risk for fracture [Z91.89] 01/23/2023 Balance disorder [R26.89] 07/17/2023 Encounter Status:Closed by PATTI OAKES on 05/22/24 [facility] CNOVon 05-13-2024 CNOV Office Visit (INTMWS ) FIOAN GRUBER ([id number]) 1940 F CHT Date Time Provider Department 05/13/24 11:00 AM ASHLEY ROBERSON During your visit today, we recorded the following information about you: Pulse Blood pressure Weight Height 106/minute 118/80 59 kg 1.626 m Ashley Roberson MD 05/13/2024 6:31 PM Signed Reason for Visit Patient presents with: Recheck: Bone density test Fiona Gruber is a 82 year old female who presents here today for Above Complaints.. Health Maintenance ADVANCE DIRECTIVE DISCUSSION HPI Fiona is 83-year-old woman with a past medical history of essential tremor, balance disorder, essential hypertension, MTHFR gene mutation, hypothyroidism, osteoporosis, CAA. Since the last time she saw me a lot has transpired. Since last visit diagnosed with osteoporosis and treated with Prolia, changed to Fosamax as it was thought Prolia may be causing worsening memory. Diagnosed with MTHFR mutation. Diagnosed with hypothyroidism and started on thyroxine. 10/30: Diarrhea: started a couple months ago, mostly in the night time, once is while she has it in the day. Watery and a lot of gas. Has not lost weight but gained some weight. No blood in diarrhea or changes in appetite She was started on aricept a couple months ago which she has been taking at night time, which coincides with her time line Leg cramps: has been having leg cramps at night , triggers seem to be dehydration. Has had it on and off for a long time but getting worse currently. Daughter started on magnesium. But levels was too high so that was stopped. She is using soap under her sheets, actually is putting it under sheets and he thinks it is helping her CAA: she is following up with Neurology. I wonder if diarrhea is a cause of the CAA> last year she had a cervical fracture post injury in a fall at home in June, she was taken to [facility] and they fused 6 vertebrae, had Physical Therapy at that time at [facility] for a week. Still has left hand numbness and jerky movements, neck does not hurt unless she is bent over a puzzle for a long time 04/25/24: notes diarrhea for the past 6 months or more, it happens once every 2 weeks, happens at night, so she has been using the depends now at night time. Watery and gassy, family member asked to use benefiber, but it has not helped much. This coincides with the time that she started aricept , notes that aricept definitely has helped her. Not clear if this is medication related, progression of dementia or organic issue going on. 05/13/2024: She has been having episodes of diarrhea, watery , brown, along with incontinence, since October 2023. There also is some urgency, can't wait to get to the restroom. It is not consistent, she is having diarrhea 3 times a week and sometimes once a week. The incontinence is a huge issue for patient and family. Last visit in evaluating this we did the C. difficile toxin and the fecal WBCs which were negative and have also given her colestipol but patient and family somehow missed taking the colestipol. Likely medication side effect. No problem-specific Assessment AND Plan notes found for this encounter. PAST MEDICAL HISTORY Diagnosis Date Age related osteoporosis DEMETRA (acute kidney injury) (HCC) 08/18/2019 Arthritis of both knees 03/08/2015 Diarrhea Diverticulosis of colon (without mention of hemorrhage) Essential tremor 03/08/2016 Hypercalcemia 03/13/2018 Hyperparathyroidism, unspecified ([facility]) Hypothyroidism, acquired 05/22/2020 Irritable bowel syndrome Osteopenia Pill dysphagia Sciatica Secondary hyperparathyroidism (HCC) 08/02/2010 Vitamin B 12 deficiency 08/18/2019 Vitamin D deficiency 01/19/2014 PAST SURGICAL HISTORY Procedure Laterality Date ADENOIDECTOMY PRIMARY Adenoidectomy COLONOSCOPY FLX DX W/COLLJ SPEC WHEN PFRMD 08/19/1999 Colonoscopy COLONOSCOPY FLX DX W/COLLJ SPEC WHEN PFRMD 07/14/2009 Repeat in COLONOSCOPY FLX DX W/COLLJ SPEC WHEN PFRMD 09/30/2019 Colonoscopy NECK SURGERY HX 07/12/2021 C4-T2 Fusion and C5-7 Laminectomy PAST SURGICAL HISTORY OF Bilateral partial knee replacemenet TONSILLECTOMY PRIMARY/SECONDARY Tonsillectomy FAMILY HISTORY Problem Relation Age of Onset Arthritis Mother other (Dementia) Mother Heart Father [place], bi-pass surgery X-2/diabetes Headache Sister Thyroid Sister Calcium Disorder No Family History Social History Tobacco Use Smoking status: Never Smokeless tobacco: Never Vaping Use Vaping status: Never Used Substance Use Topics Alcohol use: Yes Comment: Occasionally wine Drug use: No Past medical history, appointments, medications, allergies reviewed. Pertinent Lab/Diagnostic Studies are reviewed and discussed today Current Outpatient Medications: colestipol (COLESTID) 1 gram tablet m (more content not included)... [facility] CNPNon 05-12-2024 CNPN Telephone (FAMPWS) CARMENFIONA Valeri ([id number]) 1940 F CHT Date Time Provider Department 05/12/24 ASHLEY ROBERSON During your visit today, we recorded the following information about you: Shannan Santos LPN 05/12/2024 10:02 AM Signed calls to report that pt has an appt 05/14 with de ionizer operator. reports pt submitted stool samples and those are resulted. is asking if pt still needs to see gastro on . Please review and advise. MARCOS Sweeney Chitra, MD 05/12/2024 5:34 PM Signed She has no infection and this could just be functional diarrhea possibly from some of her medications. Aricept could be 1 that is causing that. Did she have any improvement with the colestipol in terms of her stool consistency? Regards, Chevy Cornejo MD, RN 05/12/2024 6:44 PM Signed Pt and called and is notified of providers results and instructions. They voice understanding. Pts said she had diarrhea yesterday morning and this morning, right after she eats. Pt said it wasn't as runny, so the Colestipol must be helping. Chevy Narayan, Ashley Sprague MD 05/13/2024 5:19 PM Signed Discussed at office visit Allergies As of Date: 05/12/2024 Noted Allergy Reaction AMOXICILLIN 05/04/2005 4 - Hives Comments: GI upset OXYCODONE 07/12/2021 8 - GI Upset PENICILLINS 11/11/2018 4 - Hives SEASONAL ALLERGIES 07/07/2021 9 - Itching Comments: Fall Date Reviewed: 04/25/2024 Reviewed by: Patti Oakes LPN - Fully Assessed Reason for Visit: lab results/appointment question [Other] Prescriptions as of 05/13/2024 - colestipol (COLESTID) 1 gram tablet Take 1 tablet by mouth two times a day. - memantine (NAMENDA) 10 mg/5 mL oral liquid 5ml po twice daily - levothyroxine (SYNTHROID) 25 mcg tablet Take 1 tablet by mouth once daily. - rosuvastatin (CRESTOR) 10 mg tablet Take 1 tablet by mouth daily at bedtime. - ubidecarenone/vitamin E mixed (COQ10 SG 100 ORAL) Take 1 tablet by mouth once daily. - donepezil (ARICEPT) 5 mg tablet Take 1 tablet by mouth daily with breakfast. - Ascorbic Acid (VITAMIN C) powd Take 1 Each by mouth once daily. - acetaminophen (TYLENOL) 325 mg tablet Take 2 tablets by mouth every 4 hours as needed for pain (acute post operative pain). Facility-Administered Medications as of 05/13/2024 - denosumab 60 mg injection (PROLIA) Meds Comments as of 03/08/2015: Ebony Zamora Problem List As Of Date 05/12/2024 Noted Resolved Age-related osteoporosis without current pathol*02/06/2005 Dysmetabolic syndrome X [E88.810] 07/10/2006 03/08/2017 Spastic Colitis [K58.9] 02/24/2009 Diarrhea [R19.7] 04/12/2009 03/08/2016 Secondary hyperparathyroidism (HCC) [N25.81] 08/02/2010 03/08/2017 Vaginal dryness [N89.8] 11/26/2013 11/30/2014 Vitamin D deficiency [E55.9] 01/19/2014 Postmenopausal atrophic vaginitis [N95.2] 11/30/2014 Osteopenia [M85.80] 03/08/2015 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] 03/08/2015 Essential tremor [G25.0] 03/08/2016 Hypercalcemia [E83.52] 03/13/2018 08/25/2019 High vitamin D level [E67.3] 03/13/2018 Rotator cuff arthropathy of both shoulders [M12*09/20/2018 Essential hypertension [I10] 08/18/2019 CKD (chronic kidney disease), stage III (HCC) [*08/18/2019 DEMETRA (acute kidney injury) (HCC) [N17.9] 08/18/2019 08/25/2019 Vitamin B 12 deficiency [E53.8] 08/18/2019 08/25/2019 Fatigue [R53.83] 11/18/2019 Elevated LFTs [R79.89] 11/18/2019 Mold exposure [Z77.120] 11/18/2019 B-complex deficiency [E53.9] 01/29/2020 Essential fatty acid (EFA) deficiency [E63.0] 01/29/2020 Exposure to mercury [Z77.018] 01/29/2020 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 Dementia without behavioral disturbance (HCC) [*02/20/2020 Hypothyroidism, acquired [E03.9] 05/22/2020 Abnormal finding on thyroid function test [R94.*03/31/2021 Acute confusion [R41.0] 03/31/2021 Osteopenia determined by x-ray [M85.80] 03/31/2021 Vitamin D toxicity [T45.2X1A] 03/31/2021 Cerebral amyloid angiopathy (CODE) [I68.0] 06/06/2021 Cerebral microvascular disease [I67.89] 06/09/2021 Closed nondisplaced fracture of sixth cervical *06/22/2021 Closed nondisplaced fracture of seventh cervica*06/22/2021 Closed fracture of transverse process of cervic*06/22/2021 Fall [W19.XXXA] 06/22/2021 06/22/2021 C6 cervical fracture (HCC) [S12.500A] 07/07/2021 At high risk for fracture [Z91.89] 01/23/2023 Balance disorder [R26.89] 07/17/2023 Encounter Status:Closed by ASHLEY ROBERSON on 05/13/24 Normal [facility] C diff Tox gens Stl Ql KY+p robeon 05-08-2024 C. difficile toxin genes [place]+probe Ql (Stl) Negative Normal Negative for C. difficile toxin by PCR [facility] Comment on above: Order Comment: Speci men Type: STOOL SPECIMENOrdering Facility: [facility] Address: [address] [place] [address] Performed By: #### F ECWBC, 41328-8 ####[facility] LABCLIA [id number] [address] FECAL LACTOFERRIN/LEUKOCYTES on 05-08-2024 Lactoferrin IA Ql (Stl) Negative for lactoferrin, which may indicate the absence of fecal white blood cells Normal Negative [facility] Comment on above: Order Comment: Speci men Type: STOOL SPECIMENOrdering Facility: [facility] Address: [address] [place] [address] Performed By: #### F ECWBC, 76953-5 ####[facility] LABCLIA [id number] [address] [facility] CNPMariah 04-28-2024 CNPN Telephone (INTMWS) FIONA GRUBER ([id number]) 1940 F T Date Time Provider Department 04/28/24 ASHLEY ROBERSON INTWS During your visit today, we recorded the following information about you: Sussy Shahid LPN 04/28/2024 10:35 AM Signed Spouse called in to request referral for GI be faxed to Dr. Sorensen. Done. Sussy Shahid LPN Allergies As of Date: 04/28/2024 Noted Allergy Reaction AMOXICILLIN 05/04/2005 4 - Hives Comments: GI upset OXYCODONE 07/12/2021 8 - GI Upset PENICILLINS 11/11/2018 4 - Hives SEASONAL ALLERGIES 07/07/2021 9 - Itching Comments: Fall Date Reviewed: 04/25/2024 Reviewed by: Patti Oakes LPN - Fully Assessed Reason for Visit: referral to outside' [Other] Prescriptions as of 04/28/2024 - colestipol (COLESTID) 5 gram packet Take 5 g by mouth once daily. - memantine (NAMENDA) 10 mg/5 mL oral liquid 5ml po twice daily - levothyroxine (SYNTHROID) 25 mcg tablet Take 1 tablet by mouth once daily. - levothyroxine (SYNTHROID) 25 mcg tablet Take 1 tablet by mouth once daily. - rosuvastatin (CRESTOR) 10 mg tablet Take 1 tablet by mouth daily at bedtime. - ubidecarenone/vitamin E mixed (COQ10 SG 100 ORAL) Take 1 tablet by mouth once daily. - Magnesium 200 mg tab Take 200 mg by mouth once daily. - donepezil (ARICEPT) 5 mg tablet Take 1 tablet by mouth daily with breakfast. - Ascorbic Acid (VITAMIN C) powd Take 1 Each by mouth once daily. - acetaminophen (TYLENOL) 325 mg tablet Take 2 tablets by mouth every 4 hours as needed for pain (acute post operative pain). Facility-Administered Medications as of 04/28/2024 - denosumab 60 mg injection (PROLIA) Meds Comments as of 03/08/2015: Ebony Zamora Problem List As Of Date 04/28/2024 Noted Resolved Age-related osteoporosis without current pathol*02/06/2005 Dysmetabolic syndrome X [E88.810] 07/10/2006 03/08/2017 Spastic Colitis [K58.9] 02/24/2009 Diarrhea [R19.7] 04/12/2009 03/08/2016 Secondary hyperparathyroidism (HCC) [N25.81] 08/02/2010 03/08/2017 Vaginal dryness [N89.8] 11/26/2013 11/30/2014 Vitamin D deficiency [E55.9] 01/19/2014 Postmenopausal atrophic vaginitis [N95.2] 11/30/2014 Osteopenia [M85.80] 03/08/2015 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] 03/08/2015 Essential tremor [G25.0] 03/08/2016 Hypercalcemia [E83.52] 03/13/2018 08/25/2019 High vitamin D level [E67.3] 03/13/2018 Rotator cuff arthropathy of both shoulders [M12*09/20/2018 Essential hypertension [I10] 08/18/2019 CKD (chronic kidney disease), stage III (HCC) [*08/18/2019 DEMETRA (acute kidney injury) (HCC) [N17.9] 08/18/2019 08/25/2019 Vitamin B 12 deficiency [E53.8] 08/18/2019 08/25/2019 Fatigue [R53.83] 11/18/2019 Elevated LFTs [R79.89] 11/18/2019 Mold exposure [Z77.120] 11/18/2019 B-complex deficiency [E53.9] 01/29/2020 Essential fatty acid (EFA) deficiency [E63.0] 01/29/2020 Exposure to mercury [Z77.018] 01/29/2020 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 Dementia without behavioral disturbance (HCC) [*02/20/2020 Hypothyroidism, acquired [E03.9] 05/22/2020 Abnormal finding on thyroid function test [R94.*03/31/2021 Acute confusion [R41.0] 03/31/2021 Osteopenia determined by x-ray [M85.80] 03/31/2021 Vitamin D toxicity [T45.2X1A] 03/31/2021 Cerebral amyloid angiopathy (CODE) [I68.0] 06/06/2021 Cerebral microvascular disease [I67.89] 06/09/2021 Closed nondisplaced fracture of sixth cervical *06/22/2021 Closed nondisplaced fracture of seventh cervica*06/22/2021 Closed fracture of transverse process of cervic*06/22/2021 Fall [W19.XXXA] 06/22/2021 06/22/2021 C6 cervical fracture (HCC) [S12.500A] 07/07/2021 At high risk for fracture [Z91.89] 01/23/2023 Balance disorder [R26.89] 07/17/2023 Encounter Status:Closed by SUSSY SHAHID on 04/28/24 Normal [facility] CNOVon 04-25-2024 CNOV Office Visit (INTMWS ) FIONA GRUBER ([id number]) 1940 F T Date Time Provider Department 04/25/24 9:00 AM ASHLEY ROBERSON During your visit today, we recorded the following information about you: Pulse Blood pressure Weight 90/minute 116/78 58.3 kg Ashley Roberson MD 04/25/2024 1:02 PM Signed Reason for Visit Patient presents with: Diarrhea: Loose stool and incontinence Fiona Gruber is a 82 year old female who presents here today for Above Complaints.. Health Maintenance ADVANCE DIRECTIVE DISCUSSION HPI Fiona is 83-year-old woman with a past medical history of essential tremor, balance disorder, essential hypertension, MTHFR gene mutation, hypothyroidism, osteoporosis, CAA. Since the last time she saw me a lot has transpired. Since last visit diagnosed with osteoporosis and treated with Prolia, changed to Fosamax as it was thought Prolia may be causing worsening memory. Diagnosed with MTHFR mutation. Diagnosed with hypothyroidism and started on thyroxine. 10/30: Diarrhea: started a couple months ago, mostly in the night time, once is while she has it in the day. Watery and a lot of gas. Has not lost weight but gained some weight. No blood in diarrhea or changes in appetite She was started on aricept a couple months ago which she has been taking at night time, which coincides with her time line Leg cramps: has been having leg cramps at night , triggers seem to be dehydration. Has had it on and off for a long time but getting worse currently. Daughter started on magnesium. But levels was too high so that was stopped. She is using soap under her sheets, actually is putting it under sheets and he thinks it is helping her CAA: she is following up with Neurology. I wonder if diarrhea is a cause of the CAA> last year she had a cervical fracture post injury in a fall at home in June, she was taken to [facility] and they fused 6 vertebrae, had Physical Therapy at that time at [facility] for a week. Still has left hand numbness and jerky movements, neck does not hurt unless she is bent over a puzzle for a long time 04/25/24: notes diarrhea for the past 6 months or more, it happens once every 2 weeks, happens at night, so she has been using the depends now at night time. Watery and gassy, family member asked to use benefiber, but it has not helped much. This coincides with the time that she started aricept , notes that aricept definitely has helped her. Not clear if this is medication related, progression of dementia or organic issue going on. No problem-specific Assessment AND Plan notes found for this encounter. PAST MEDICAL HISTORY Diagnosis Date Age related osteoporosis DEMETRA (acute kidney injury) ([facility]) 08/18/2019 Arthritis of both knees 03/08/2015 Diarrhea Diverticulosis of colon (without mention of hemorrhage) Essential tremor 03/08/2016 Hypercalcemia 03/13/2018 Hyperparathyroidism, unspecified ([facility]) Hypothyroidism, acquired 05/22/2020 Irritable bowel syndrome Osteopenia Pill dysphagia Sciatica Secondary hyperparathyroidism ([facility]) 08/02/2010 Vitamin B 12 deficiency 08/18/2019 Vitamin D deficiency 01/19/2014 PAST SURGICAL HISTORY Procedure Laterality Date ADENOIDECTOMY PRIMARY Adenoidectomy COLONOSCOPY FLX DX W/COLLJ SPEC WHEN PFRMD 08/19/1999 Colonoscopy COLONOSCOPY FLX DX W/COLLJ SPEC WHEN PFRMD 07/14/2009 Repeat in -2019 COLONOSCOPY FLX DX W/COLLJ SPEC WHEN PFRMD 09/30/2019 Colonoscopy NECK SURGERY HX 07/12/2021 C4-T2 Fusion and C5-7 Laminectomy PAST SURGICAL HISTORY OF Bilateral partial knee replacemenet TONSILLECTOMY PRIMARY/SECONDARY Tonsillectomy FAMILY HISTORY Problem Relation Age of Onset Arthritis Mother other (Dementia) Mother Heart Father [place], bi-pass surgery X-2/diabetes Headache Sister Thyroid Sister Calcium Disorder No Family History Social History Tobacco Use Smoking status: Never Smokeless tobacco: Never Vaping Use Vaping status: Never Used Substance Use Topics Alcohol use: Yes Comment: Occasionally wine Drug use: No Past medical history, appointments, medications, allergies reviewed. Pertinent Lab/Diagnostic Studies are reviewed and discussed today Current Outpatient Medications: memantine (NAMENDA) 10 mg/5 mL oral liquid rosuvastatin (CRESTOR) 10 mg tablet ubidecarenone/vitamin E mixed (COQ10 SG 100 ORAL) donepezil (ARICEPT) 5 mg tablet levothyroxine (SYNTHROID) 25 mcg tablet levothyroxine (SYNTHROID) 25 mcg tablet Magnesium 200 mg tab Ascorbic Acid (VITAMIN C) powd acetaminophen (TYLENOL) 325 mg tablet Current Facility-Administered Medications: [START ON 05/19/2024] denosumab 60 mg injection (PROLIA) Review of Systems CONSTITUTIONAL: No fevers, chills night sweats, unintended weight loss CARDIOVASCULAR: No chest pain, dyspnea, palpitations, or (more content not included)... Normal [facility] CNPNon 04-25-2024 CNPN Telephone (INTMWS) FIONA GRUBER ([id number]) 1940 F [facility] Date Time Provider Department 04/25/24 ASHLEY ROBERSON INTWS During your visit today, we recorded the following information about you: Teresa Caban RN 04/25/2024 1:34 PM Addendum Vandana from [facility] calls and states that colestipol 5 gram packets have been discontinued by manufacture. Provider can order: the colestipol power suspension which comes with a scoop and each scoop is 5 grams. Bottles are 500 grams which would be a 100 day supply. Colestipol 1 gram tablets. [facility] has both in stock. TYRON Riley Chitra, MD 04/28/2024 5:39 PM Signed I sent the colestipol 1 gms 2 times a day Ashley Reyes MD, Chitra, MD 04/28/2024 5:39 PM Signed Addended by: ASHLEY ROBERSON on: 04/28/2024 05:39 PM Modules accepted: Orders Allergies As of Date: 04/25/2024 Noted Allergy Reaction AMOXICILLIN 05/04/2005 4 - Hives Comments: GI upset OXYCODONE 07/12/2021 8 - GI Upset PENICILLINS 11/11/2018 4 - Hives SEASONAL ALLERGIES 07/07/2021 9 - Itching Comments: Fall Date Reviewed: 04/25/2024 Reviewed by: Patti Oakes LPN - Fully Assessed Reason for Visit: Medication Problem [65] Order(s):colestipol (COLESTID) 1 gram tabletTake 1 tablet by mouth two times a day.Disp: 60 tabletRfl: 1 Prescriptions as of 04/28/2024 - colestipol (COLESTID) 1 gram tablet Take 1 tablet by mouth two times a day. - memantine (NAMENDA) 10 mg/5 mL oral liquid 5ml po twice daily - levothyroxine (SYNTHROID) 25 mcg tablet Take 1 tablet by mouth once daily. - levothyroxine (SYNTHROID) 25 mcg tablet Take 1 tablet by mouth once daily. - rosuvastatin (CRESTOR) 10 mg tablet Take 1 tablet by mouth daily at bedtime. - ubidecarenone/vitamin E mixed (COQ10 SG 100 ORAL) Take 1 tablet by mouth once daily. - Magnesium 200 mg tab Take 200 mg by mouth once daily. - donepezil (ARICEPT) 5 mg tablet Take 1 tablet by mouth daily with breakfast. - Ascorbic Acid (VITAMIN C) powd Take 1 Each by mouth once daily. - acetaminophen (TYLENOL) 325 mg tablet Take 2 tablets by mouth every 4 hours as needed for pain (acute post operative pain). Facility-Administered Medications as of 04/28/2024 - denosumab 60 mg injection (PROLIA) Meds Comments as of 03/08/2015: Ebony Zamora Problem List As Of Date 04/25/2024 Noted Resolved Age-related osteoporosis without current pathol*02/06/2005 Dysmetabolic syndrome X [E88.810] 07/10/2006 03/08/2017 Spastic Colitis [K58.9] 02/24/2009 Diarrhea [R19.7] 04/12/2009 03/08/2016 Secondary hyperparathyroidism (HCC) [N25.81] 08/02/2010 03/08/2017 Vaginal dryness [N89.8] 11/26/2013 11/30/2014 Vitamin D deficiency [E55.9] 01/19/2014 Postmenopausal atrophic vaginitis [N95.2] 11/30/2014 Osteopenia [M85.80] 03/08/2015 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] 03/08/2015 Essential tremor [G25.0] 03/08/2016 Hypercalcemia [E83.52] 03/13/2018 08/25/2019 High vitamin D level [E67.3] 03/13/2018 Rotator cuff arthropathy of both shoulders [M12*09/20/2018 Essential hypertension [I10] 08/18/2019 CKD (chronic kidney disease), stage III (HCC) [*08/18/2019 DEMETRA (acute kidney injury) (HCC) [N17.9] 08/18/2019 08/25/2019 Vitamin B 12 deficiency [E53.8] 08/18/2019 08/25/2019 Fatigue [R53.83] 11/18/2019 Elevated LFTs [R79.89] 11/18/2019 Mold exposure [Z77.120] 11/18/2019 B-complex deficiency [E53.9] 01/29/2020 Essential fatty acid (EFA) deficiency [E63.0] 01/29/2020 Exposure to mercury [Z77.018] 01/29/2020 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 Dementia without behavioral disturbance (HCC) [*02/20/2020 Hypothyroidism, acquired [E03.9] 05/22/2020 Abnormal finding on thyroid function test [R94.*03/31/2021 Acute confusion [R41.0] 03/31/2021 Osteopenia determined by x-ray [M85.80] 03/31/2021 Vitamin D toxicity [T45.2X1A] 03/31/2021 Cerebral amyloid angiopathy (CODE) [I68.0] 06/06/2021 Cerebral microvascular disease [I67.89] 06/09/2021 Closed nondisplaced fracture of sixth cervical *06/22/2021 Closed nondisplaced fracture of seventh cervica*06/22/2021 Closed fracture of transverse process of cervic*06/22/2021 Fall [W19.XXXA] 06/22/2021 06/22/2021 C6 cervical fracture (HCC) [S12.500A] 07/07/2021 At high risk for fracture [Z91.89] 01/23/2023 Balance disorder [R26.89] 07/17/2023 Prescriptions ordered this encounter Disp Refills Start End COLESTIPOL 1 GRAM TABLET 60 t* 1 04/28/2024 Route: ORAL Sig: Take 1 tablet by mouth two times a day. Medications Discontinued During This Encounter Prescriptions - colestipol (COLESTID) 5 gram packet (Discontinued) Take 5 g by mouth once daily. Encounter Status:Closed by SUSSY SHAHID on 04/28/24 [facility] Susie 04-16-2024 JUAN Telephone (INTMWS) FIONA GRUBER ([id number]) 1940 [facility] Date Time Provider Department 04/16/24 YVONNE VALENTE During your visit today, we recorded the following information about you: Shanell Lyles LPN 04/16/2024 10:40 AM Signed Patient Dong calling asking for an order for a chair lift. His has been having issues falling and he does not want her falling down the stairs. He is calling his insurance to find out if covered and what DME to use. He would like to excelsior picker order when it is ready. Pending order put several diagnosis on order. Please advise Yvonne Valente APRN.MARCELA 04/16/2024 11:14 AM Signed Order placed as requested Thank you Yvonne Valente APRN.ICT ACCOUNT MANAGER Tsering Loo MA 04/16/2024 1:06 PM Signed Dong notified order is ready for excelsior picker in Medical Records. Allergies As of Date: 04/16/2024 Noted Allergy Reaction AMOXICILLIN 05/04/2005 4 - Hives Comments: GI upset OXYCODONE 07/12/2021 8 - GI Upset PENICILLINS 11/11/2018 4 - Hives SEASONAL ALLERGIES 07/07/2021 9 - Itching Comments: Fall Date Reviewed: 02/19/2024 Reviewed by: Elin Johnson MA - Fully Assessed Reason for Visit: Orders [681] Primary Visit Diagnosis:Balance disorder [R26.89] Other Visit Diagnoses:At risk for falls [Z91.81] Dementia without behavioral disturbance (HCC) [F03.90] Age-related osteoporosis without current pathological fracture [M81.0] Order(s):MOVEABLE PATIENT LIFT SYSTEM [[id number]] Order #: [id number] Prescriptions as of 04/16/2024 - memantine (NAMENDA) 10 mg/5 mL oral liquid 5ml po twice daily - levothyroxine (SYNTHROID) 25 mcg tablet Take 1 tablet by mouth once daily. - levothyroxine (SYNTHROID) 25 mcg tablet Take 1 tablet by mouth once daily. - rosuvastatin (CRESTOR) 10 mg tablet Take 1 tablet by mouth daily at bedtime. - ubidecarenone/vitamin E mixed (COQ10 SG 100 ORAL) Take 1 tablet by mouth once daily. - Magnesium 200 mg tab Take 200 mg by mouth once daily. - donepezil (ARICEPT) 5 mg tablet Take 1 tablet by mouth daily with breakfast. - Ascorbic Acid (VITAMIN C) powd Take 1 Each by mouth once daily. - acetaminophen (TYLENOL) 325 mg tablet Take 2 tablets by mouth every 4 hours as needed for pain (acute post operative pain). Facility-Administered Medications as of 04/16/2024 - denosumab 60 mg injection (PROLIA) Meds Comments as of 03/08/2015: Ebony Zamora Problem List As Of Date 04/16/2024 Noted Resolved Age-related osteoporosis without current pathol*02/06/2005 Dysmetabolic syndrome X [E88.810] 07/10/2006 03/08/2017 Spastic Colitis [K58.9] 02/24/2009 Diarrhea [R19.7] 04/12/2009 03/08/2016 Secondary hyperparathyroidism (HCC) [N25.81] 08/02/2010 03/08/2017 Vaginal dryness [N89.8] 11/26/2013 11/30/2014 Vitamin D deficiency [E55.9] 01/19/2014 Postmenopausal atrophic vaginitis [N95.2] 11/30/2014 Osteopenia [M85.80] 03/08/2015 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] 03/08/2015 Essential tremor [G25.0] 03/08/2016 Hypercalcemia [E83.52] 03/13/2018 08/25/2019 High vitamin D level [E67.3] 03/13/2018 Rotator cuff arthropathy of both shoulders [M12*09/20/2018 Essential hypertension [I10] 08/18/2019 CKD (chronic kidney disease), stage III (HCC) [*08/18/2019 DEMETRA (acute kidney injury) (HCC) [N17.9] 08/18/2019 08/25/2019 Vitamin B 12 deficiency [E53.8] 08/18/2019 08/25/2019 Fatigue [R53.83] 11/18/2019 Elevated LFTs [R79.89] 11/18/2019 Mold exposure [Z77.120] 11/18/2019 B-complex deficiency [E53.9] 01/29/2020 Essential fatty acid (EFA) deficiency [E63.0] 01/29/2020 Exposure to mercury [Z77.018] 01/29/2020 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 Dementia without behavioral disturbance (HCC) [*02/20/2020 Hypothyroidism, acquired [E03.9] 05/22/2020 Abnormal finding on thyroid function test [R94.*03/31/2021 Acute confusion [R41.0] 03/31/2021 Osteopenia determined by x-ray [M85.80] 03/31/2021 Vitamin D toxicity [T45.2X1A] 03/31/2021 Cerebral amyloid angiopathy (CODE) [I68.0] 06/06/2021 Cerebral microvascular disease [I67.89] 06/09/2021 Closed nondisplaced fracture of sixth cervical *06/22/2021 Closed nondisplaced fracture of seventh cervica*06/22/2021 Closed fracture of transverse process of cervic*06/22/2021 Fall [W19.XXXA] 06/22/2021 06/22/2021 C6 cervical fracture (HCC) [S12.500A] 07/07/2021 At high risk for fracture [Z91.89] 01/23/2023 Balance disorder [R26.89] 07/17/2023 Encounter Status:Closed by MARIA DEL CARMENSHIE on 04/16/24 [facility] CNOVon 02-19-2024 CNOV Office Visit (INTMWS ) FIONA GRUBER ([id number]) 1940 F [facility] Date Time Provider Department 02/19/24 11:40 AM ASHLEY ROBERSON INTMWS During your visit today, we recorded the following information about you: Pulse Respiration Blood pressure Weight 73/minute 16/minute 110/70 56.7 kg Ashley Roberson MD 02/19/2024 1:12 PM Signed Fiona Trammell Carmen is a 83 year old female here for a Medicare wellness visit. Medicare Health Risk Assessment General Health She does not exercise. But willing to go to [place]. Exercise: Minutes/Day 0 min Exercise: Days/Week 0 days Alcohol: Daily Use Monthly or less Alcohol: Drinks/Day 1 or 2 Alcohol: 6 or more drinks Never Feel off balance No Concerns: Teeth/Dentures No Concerns: Sexual function No Troubled by feelings No Frequency: Eating healthy diet No ADLs requiring help Mostly everything Safety precautions in home/vehicle Yes Smoke, vape, chews tobacco No Difficulty hearing No Difficulty seeing No Current Providers Specialists: I have reviewed specialist-related care of the patient in the medical record. Medical/Family history review Reviewed and updated problem list, medical/surgical/famil y/social history, medications, and allergies. Opioid use review Opioid Medications (last 90 days) No data to display Anxiety/Depression screening Recommendation: no further intervention at this time Cognitive screening Cognitive screening reviewed and No further action needed (score 3-5). Functional Observation Was the patient's Timed Up AND Go test unsteady or >= 12 seconds? No Advance Care Planning Surrogate decision maker and/or advance care plan documented Measurements BP 110/70 Pulse 73 Resp 16 Wt 56.7 kg (125 lb) BMI (P) 21.46 kg/m? Vision Screening: Follows with optometry/ophthalmolog y Assessment/Plan Medicare annual wellness visit, subsequent (Z00.00) - Counseled on healthy diet and regular exercise - Fall avoidance information provided - Personalized prevention plan provided. Referring Provider: SELF [200] Allergies As of Date: 02/19/2024 Noted Allergy Reaction AMOXICILLIN 05/04/2005 4 - Hives Comments: GI upset OXYCODONE 07/12/2021 8 - GI Upset PENICILLINS 11/11/2018 4 - Hives SEASONAL ALLERGIES 07/07/2021 9 - Itching Comments: Fall Date Reviewed: 02/19/2024 Reviewed by: Elin Johnson MA - Fully Assessed Reason for Visit: Medicare Wellness Exam [4060] Primary Visit Diagnosis:Medicare annual wellness visit, subsequent [Z00.00] Other Visit Diagnosis:Stage 3a chronic kidney disease (HCC) [N18.31] Prescriptions as of 04/25/2024 - colestipol (COLESTID) 5 gram packet Take 5 g by mouth once daily. - memantine (NAMENDA) 10 mg/5 mL oral liquid 5ml po twice daily - levothyroxine (SYNTHROID) 25 mcg tablet Take 1 tablet by mouth once daily. - levothyroxine (SYNTHROID) 25 mcg tablet Take 1 tablet by mouth once daily. - rosuvastatin (CRESTOR) 10 mg tablet Take 1 tablet by mouth daily at bedtime. - ubidecarenone/vitamin E mixed (COQ10 SG 100 ORAL) Take 1 tablet by mouth once daily. - Magnesium 200 mg tab Take 200 mg by mouth once daily. - donepezil (ARICEPT) 5 mg tablet Take 1 tablet by mouth daily with breakfast. - Ascorbic Acid (VITAMIN C) powd Take 1 Each by mouth once daily. - acetaminophen (TYLENOL) 325 mg tablet Take 2 tablets by mouth every 4 hours as needed for pain (acute post operative pain). Facility-Administered Medications as of 04/25/2024 - denosumab 60 mg injection (PROLIA) Meds Comments as of 03/08/2015: Ebony Zamora Problem List As Of Date 02/19/2024 Noted Resolved Age-related osteoporosis without current pathol*02/06/2005 Dysmetabolic syndrome X [E88.810] 07/10/2006 03/08/2017 Spastic Colitis [K58.9] 02/24/2009 Diarrhea [R19.7] 04/12/2009 03/08/2016 Secondary hyperparathyroidism (HCC) [N25.81] 08/02/2010 03/08/2017 Vaginal dryness [N89.8] 11/26/2013 11/30/2014 Vitamin D deficiency [E55.9] 01/19/2014 Postmenopausal atrophic vaginitis [N95.2] 11/30/2014 Osteopenia [M85.80] 03/08/2015 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] 03/08/2015 Essential tremor [G25.0] 03/08/2016 Hypercalcemia [E83.52] 03/13/2018 08/25/2019 High vitamin D level [E67.3] 03/13/2018 Rotator cuff arthropathy of both shoulders [M12*09/20/2018 Essential hypertension [I10] 08/18/2019 CKD (chronic kidney disease), stage III (HCC) [*08/18/2019 DEMETRA (acute kidney injury) (HCC) [N17.9] 08/18/2019 08/25/2019 Vitamin B 12 deficiency [E53.8] 08/18/2019 08/25/2019 Fatigue [R53.83] 11/18/2019 Elevated LFTs [R79.89] 11/18/2019 Mold exposure [Z77.120] 11/18/2019 B-complex deficiency [E53.9] 01/29/2020 Essential fatty acid (EFA) deficiency [E63.0] 01/29/2020 Exposure to mercury [Z77.018] 01/29/2020 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 Normal [facility] Comprehensive metabolic 2000 panelOrdered By: Sonal Steward on 11-01-2023 Albumin [Mass/Vol] 4.4 g/dL 3.9 - 4.9 g/dL [facility] ALP [Catalytic activity/Vol] 55 U/L 34 - 123 U/L [facility] ALT [Catalytic activity/Vol] 19 U/L 7 - 38 U/L [facility] Anion gap [Moles/Vol] 8 mmol/L 8 - 15 mmol/L [facility] AST [Catalytic activity/Vol] 27 U/L 13 - 35 U/L [facility] Bilirubin [Mass/Vol] 0.4 mg/dL 0.2 - 1 .3 mg/dL [facility] Calcium [Mass/Vol] 9.7 mg/dL 8.5 - 10. 2 mg/dL [facility] Chloride [Moles/Vol] 104 mmol/L 98 - 10 7 mmol/L [facility] CO2 [Moles/Vol] 28 mmol/L 22 - 30 mmol/L [facility] Creatinine [Mass/Vol] 0.87 mg/dL 0.58 - 0.96 mg/dL [facility] GFR/1.73 sq M.predicted among non-blacks MDRD (S/P/Bld) [Vol rate/Area] 66 mL/min/{1.73_m2} - PINF [facility] Comment on above: Estimated Glomerular Filtration Rate (eGFR) is calculated using the 2020 CKD-EPI creatinine equation. This equation utilizes serum creatinine, sex, and age as parameters. The creatinine assay has traceable calibration to isotope dilution-mass spectrometry. Refer to KDIGO guidelines for clinical interpretation. In patients with unstable renal function, e.g. those with acute kidney injury, the eGFR may not accurately reflect actual GFR. Glucose [Mass/Vol] 92 mg/dL 74 - 99 mg/dL [facility] Comment on above: The [place] Di[employer] Association (ADA) provides guidance for cutoff values for fasting glucose and random glucose. The ADA defines fasting as no caloric intake for at least 8 hours. Fasting plasma glucose results between 100 to 125 mg/dL indicate increased risk for diabetes (prediabetes). Fasting plasma glucose results greater than or equal to 126 mg/dL meet the criteria for diagnosis of diabetes. In the absence of unequivocal hyperglycemia, results should be confirmed by repeat testing. In a patient with classic symptoms of hyperglycemia or hyperglycemic crisis, random plasma glucose results greater than or equal to 200 mg/dL meet the criteria for diagnosis of diabetes. Reference: Standards of Medical Care in Diabetes 2016, [place] [employer]. Diabetes Care. 2016.39(Suppl 1). Interpretation and review of laboratory results Abnormal [facility] Potassium [Moles/Vol] 4.3 mmol/L 3.7 - 5.1 mmol/L [facility] Protein [Mass/Vol] 7.1 g/dL 6.3 - 8.0 g/dL [facility] Sodium [Moles/Vol] 140 mmol/L 136 - 144 mmol/L [facility] Urea nitrogen [Mass/Vol] 23 mg/dL High 7 - 21 mg/dL [facility] MAGNESIUMon 11-01-2023 Magnesium [Mass/Vol] 2.1 mg/dL 1.7 - 2 .3 mg/dL [facility] Magnesium [Mass/Vol]on 10-31 Interpretation and review of laboratory results Normal [facility] No Panel InformationOrdered By: Sonal Steward on 11-01-2023 [facility] MR Cervical spine WO contras ton 10-16-2023 IMPRESSION: Interval cervical posterior decompression and instrumented fusion with resolution of previous spinal canal stenosis at C5-6 and C6-7; no residual cord impingement. Residual degenerative foraminal stenosis described. Anatomic Variant: None. Assume 7 cervical vertebrae with counting from the craniocervical junction. Neonatologist: PSCJarocho Transcribe Date/Time: Oct 16 2023 3:00P Dictated by : BEN SERRANO MD This examination was interpreted and the report reviewed and electronically signed by: BEN SERRANO MD on Oct 16 2023 3:10PM [facility] DIVISION OF RADIOLOGY * * *Final Report* * * DATE OF EXAM: Oct 16 2023 2:10PM [facility] 0297 - MRI CERVICAL SPINE WO IVCON / PROCEDURE REASON: multiple diagnoses * * * * Physician Interpretation * * * * EXAMINATION: MRI CERVICAL SPINE WO IVCON CLINICAL HISTORY: Balance disorder Cervical myelopathy (HCC) Ataxia History of cervical fracture TECHNIQUE: Routine cervical spine MR protocol without gadolinium. MQ: [id number] COMPARISON: 06/21/2021 RESULT: Counting reference: Craniocervical junction. Anatomic Variants: None. Localizer images: No additional findings. Alignment: Alignment is anatomic. Craniocervical junction: Craniocervical junction is normal. Cord: The visualized cord is within normal limits of signal intensity and morphology. Bone marrow signal/fracture: Posterior instrumented fusion spanning C4-T2. Edema like signal T1 spinous processes likely postsurgical. No evidence of pathologic marrow infiltration otherwise. No evidence of prior fracture. Cervical soft tissues: The paraspinal soft tissues are within normal limits. C2-C3: Degenerative facet changes with buckling of ligamentum flavum. Minimal narrowing of the spinal canal. C3-C4: Facet hypertrophy contributing to mild bilateral neural foraminal narrowing. Spinal canal is patent. C4-C5: Canal and foramina are patent. C5-C6: Disc osteophyte complex indents the ventral thecal sac but the spinal canal is decompressed by laminectomy. Uncovertebral and facet hypertrophy causing mild bilateral neural foraminal narrowing. C6-C7: Disc osteophyte complex indents the ventral thecal sac but the spinal canal is decompressed by laminectomy. Uncovertebral and facet hypertrophy causing mild bilateral neural foraminal narrowing. C7-T1: Canal and foramina are patent. DIVISION OF RADIOLOGY Provider, [facility] - 10/16/2023 * * *Final Report* * * DATE OF EXAM: Oct 16 2023 2:10PM [facility] 0297 - MRI CERVICAL SPINE WO IVCON / PROCEDURE REASON: multiple diagnoses * * * * Physician Interpretation * * * * EXAMINATION: MRI CERVICAL SPINE WO IVCON CLINICAL HISTORY: Balance disorder Cervical myelopathy (HCC) Ataxia History of cervical fracture TECHNIQUE: Routine cervical spine MR protocol without gadolinium. MQ: [id number] COMPARISON: 06/21/2021 RESULT: Counting reference: Craniocervical junction. Anatomic Variants: None. Localizer images: No additional findings. Alignment: Alignment is anatomic. Craniocervical junction: Craniocervical junction is normal. Cord: The visualized cord is within normal limits of signal intensity and morphology. Bone marrow signal/fracture: Posterior instrumented fusion spanning C4-T2. Edema like signal T1 spinous processes likely postsurgical. No evidence of pathologic marrow infiltration otherwise. No evidence of prior fracture. Cervical soft tissues: The paraspinal soft tissues are within normal limits. C2-C3: Degenerative facet changes with buckling of ligamentum flavum. Minimal narrowing of the spinal canal. C3-C4: Facet hypertrophy contributing to mild bilateral neural foraminal narrowing. Spinal canal is patent. C4-C5: Canal and foramina are patent. C5-C6: Disc osteophyte complex indents the ventral thecal sac but the spinal canal is decompressed by laminectomy. Uncovertebral and facet hypertrophy causing mild bilateral neural foraminal narrowing. C6-C7: Disc osteophyte complex indents the ventral thecal sac but the spinal canal is decompressed by laminectomy. Uncovertebral and facet hypertrophy causing mild bilateral neural foraminal narrowing. C7-T1: Canal and foramina are patent. IMPRESSION IMPRESSION: Interval cervical posterior decompression and instrumented fusion with resolution of previous spinal canal stenosis at C5-6 and C6-7; no residual cord impingement. Residual degenerative foraminal stenosis described. Anatomic Variant: None. Assume 7 cervical vertebrae with counting from the craniocervical junction. Neonatologist: PSCB Transcribe Date/Time: Oct 16 2023 3:00P Dictated by : BEN SERRANO MD This examination was interpreted and the report reviewed and electronically signed by: BEN SERRANO MD on Oct 16 2023 3:10PM EST [facility] Radiology Study observation (narrative) [facility] MR Cervical spine WO contras tOrdered By: Ccf Provider on 10-16-2023 [facility] ECG COMPLETEon 06-27-2023 Atrial Rate 85 BPM [facility] Calculated P [place] 81 degrees [facility] Calculated R [place] 55 degrees [facility] Calculated T [place] 58 degrees [facility] P-R Interval 130 ms [facility] QRS Duration 130 ms [facility] QT Interval 420 ms [facility] QTC Calculation (Bazett) 499 ms [facility] Ventricular Rate 85 BPM [facility] Urinalysis complete panel (U )on 06-27-2023 Bacteria LM.HPF (Urine sed) [#/Area] Negative Negative /HPF [facility] Bilirubin Ql (U) Negative Negative [facility] Clarity (Unsp spec) Clear Clear [facility] Color (U) Yellow Yellow [facility] Epithelial cells LM.HPF (Urine sed) [#/Area] None Seen [facility] Glucose Test strip (U) [Mass/Vol] Negative Negative [facility] Hemoglobin Ql (U) 2+ Abnormal Negative [facility] Hyaline casts (Urine sed) [#/Area] 0 /[LPF] 0 /LPF [facility] Ketones Ql (U) Negative Negative [facility] Leukocyte esterase Test strip Ql (U) Trace Abnormal Negative [facility] Nitrite Ql (U) Negative Negative [facility] pH (U) 6.5 [pH] <8.5 [facility] Protein (U) [Mass/Vol] Negative Negative Cl [facility] RBC LM.HPF (Urine sed) [#/Area] 11-20 /HPF Abnormal 0-2 /HPF [facility] Specific gravity (U) [Rel density] 1.015 1.005 - 1.030 [facility] Urobilinogen Ql (U) 0.2 EU/dL 0.2-1.0 EU/dL [facility] WBC LM.HPF (Urine sed) [#/Area] 0-5 /HPF 0-5 /HPF [facility] UA DIP, URINE (POC)on 2022 BILIRUBIN UA (POCT) Negative Negative [facility] CLARITY UA (POCT) Slightly Cloudy Cl [facility] COLOR UA (POCT) Yellow [facility] GLUCOSE UA (POCT) Negative Negative mg/dL [facility] Hemoglobin Ql (U) Trace-intact Abnormal Negative [facility] KETONE UA (POCT) Negative Negative mg/dL [facility] LEUKOCYTES UA (POCT) Small Abnormal Negative [facility] NITRITE UA (POCT) Negative Negative [facility] PH UA (POCT) 5.5 4.5 - 8.0 [facility] Protein Ql (U) Negative Negative mg/dL [facility] SPECIFIC GRAVITY UA (POCT) 1.025 1.005 - 1.030 [facility] UROBILINOGEN UA (POCT) 0.2 E.U./dL Ree l E.U./dL [facility] CBC W Auto Differential pane l (Bld)on 11-22-2022 Basophils (Bld) [#/Vol] 0.04 10*3/uL <0.11 k/uL [facility] Basophils/100 WBC (Bld) 0.4 % C [facility] Differential cell count method Nom (Bld) Auto [facility] Eosinophils (Bld) [#/Vol] 0.16 10*3/uL <0.46 k/uL [facility] Eosinophils/100 WBC (Bld) 1.7 % [facility] Erythrocyte distribution width (RBC) [Ratio] 14.3 % 11.5 - 15.0 % [facility] Hematocrit (Bld) [Volume fraction] 39.9 % 36.0 - 46.0 % [facility] Hemoglobin (Bld) [Mass/Vol] 12.8 g/dL 11.5 - 15.5 g/dL [facility] Immature granulocytes (Bld) [#/Vol] 0.03 10*3/uL <0.10 k/uL [facility] Immature granulocytes/100 WBC (Bld) 0.3 % [facility] Lymphocytes (Bld) [#/Vol] 2.57 10*3/uL 1.00 - 4.00 k/uL [facility] Lymphocytes/100 WBC (Bld) 27.6 % [facility] MCH (RBC) [Entitic mass] 29.2 pg 26.0 - 34.0 pg [facility] MCHC (RBC) [Mass/Vol] 32.1 g/dL 30.5 - 36.0 g/dL [facility] MCV (RBC) [Entitic vol] 91.1 fL 80.0 - 100.0 fL [facility] Monocytes (Bld) [#/Vol] 0.95 10*3/uL High <0.87 k/uL [facility] Monocytes/100 WBC (Bld) 10.2 % [facility] Neutrophils (Bld) [#/Vol] 5.55 10*3/uL 1.45 - 7.50 k/uL [facility] Neutrophils/100 WBC (Bld) 59.8 % [facility] Nucleated RBC (Bld) [#/Vol] <0.01 k/uL [facility] Nucleated RBC/100 WBC (Bld) [Ratio] 0.0 /100 WBC [facility] Platelet mean volume (Bld) [Entitic vol] 12.6 fL 9.0 - 12.7 fL [facility] Platelets (Bld) [#/Vol] 197 10*3/uL 150 - 400 k/uL [facility] RBC (Bld) [#/Vol] 4.38 10*6/uL 3.90 - 5.2 0 m/uL [facility] WBC (Bld) [#/Vol] 9.30 10*3/uL 3.70 - 11. 00 k/uL [facility] Comprehensive metabolic 2000 panelon 11-22-2022 Albumin [Mass/Vol] 4.4 g/dL 3.9 - 4.9 g/dL [facility] ALP [Catalytic activity/Vol] 75 U/L 34 - 123 U/L [facility] ALT [Catalytic activity/Vol] 28 U/L 7 - 38 U/L [facility] Anion gap [Moles/Vol] 10 mmol/L 9 - 18 mmol/L [facility] AST [Catalytic activity/Vol] 34 U/L 13 - 35 U/L [facility] Bilirubin [Mass/Vol] 0.3 mg/dL 0.2 - 1 .3 mg/dL [facility] Calcium [Mass/Vol] 9.7 mg/dL 8.5 - 10. 2 mg/dL [facility] Chloride [Moles/Vol] 107 mmol/L High 97 - 10 5 mmol/L [facility] CO2 [Moles/Vol] 26 mmol/L 22 - 30 mmol/L [facility] Creatinine [Mass/Vol] 0.79 mg/dL 0.58 - 0.96 mg/dL [facility] Estimated Glomerular Filtration Rate 75 mL/min/1.73m >=60 mL/min/1.73m [facility] Glucose [Mass/Vol] 77 mg/dL 74 - 99 mg/dL [facility] Potassium [Moles/Vol] 4.3 mmol/L 3.7 - 5.1 mmol/L [facility] Protein [Mass/Vol] 7.1 g/dL 6.3 - 8.0 g/dL [facility] Sodium [Moles/Vol] 143 mmol/L 136 - 144 mmol/L [facility] Urea nitrogen [Mass/Vol] 24 mg/dL High 7 - 21 mg/dL [facility] Lipid 1996 panelon 3 Cholesterol [Mass/Vol] 134 mg/dL <200 mg/dL [facility] Cholesterol in HDL [Mass/Vol] 64 mg/dL >39 mg/dL [facility] Cholesterol in LDL [Mass/Vol] 61 mg/dL <100 mg/dL [facility] Cholesterol in LDL/Cholesterol in HDL [Mass ratio] 0.95 {ratio} <2.54 [facility] Cholesterol in VLDL [Mass/Vol] 9 mg/dL <30 mg/dL [facility] Cholesterol non HDL [Mass/Vol] 70 mg/dL <130 mg/dL [facility] Cholesterol.total/Jeaneth sterol in HDL [Mass ratio] 2.09 {ratio} <5.10 [facility] Fasting Time 13 hrs [facility] Triglyceride [Mass/Vol] 43 mg/dL <150 mg/dL C [facility] T4 FREE/FREE THYROXon 2022 Free T4 [Mass/Vol] 1.2 ng/dL 0.9 - 1.7 ng/dL [facility] TSH BLDon 11-22-2022 TSH Qn 2.390 m[IU]/L 0.270 - 4.200 mIU/L [facility] VITAMIN D 25 HYDROXYon 11-22 25-hydroxyvitamin D3 [Mass/Vol] 30.9 ng/mL Low 31.0 - 80.0 ng/mL [facility] UA DIP, URINE (POC)on 2021 BILIRUBIN UA (POCT) Negative Negative [facility] CLARITY UA (POCT) Clear [facility] COLOR UA (POCT) Yellow [facility] GLUCOSE UA (POCT) Negative Negative mg/dL [facility] HEMOGLOBIN/BLOOD UA (POCT) Moderate Abnormal Negative [facility] KETONE UA (POCT) Negative Negative mg/dL [facility] LEUKOCYTES UA (POCT) Small Abnormal Negative [facility] NITRITE UA (POCT) Negative Negative [facility] PH UA (POCT) 5.5 4.5 - 8.0 [facility] Protein Ql (U) Negative Negative mg/dL [facility] SPECIFIC GRAVITY UA (POCT) 1.025 1.005 - 1.030 [facility] UROBILINOGEN UA (POCT) 0.2 E.U./dL Ree l E.U./dL [facility] CBC W Auto Differential pane l (Bld)on 11-11-2021 Abs Immature Gran <0.03 <0.10 k/uL [facility] Basophils (Bld) [#/Vol] 0.05 10*3/uL <0.11 k/uL [facility] Basophils/100 WBC (Bld) 0.7 % C [facility] Differential cell count method Nom (Bld) Auto [facility] Eosinophils (Bld) [#/Vol] 0.12 10*3/uL <0.46 k/uL [facility] Eosinophils/100 WBC (Bld) 1.6 % [facility] Erythrocyte distribution width (RBC) [Ratio] 15.1 % High 11.5 - 15.0 % [facility] Hematocrit (Bld) [Volume fraction] 40.4 % 36.0 - 46.0 % [facility] Hemoglobin (Bld) [Mass/Vol] 12.4 g/dL 11.5 - 15.5 g/dL [facility] Immature Gran % 0.3 % [facility] Lymphocytes (Bld) [#/Vol] 2.07 10*3/uL 1.00 - 4.00 k/uL [facility] Lymphocytes/100 WBC (Bld) 27.8 % [facility] MCH (RBC) [Entitic mass] 26.7 pg 26.0 - 34.0 pg [facility] MCHC (RBC) [Mass/Vol] 30.7 g/dL 30.5 - 36.0 g/dL [facility] MCV (RBC) [Entitic vol] 86.9 fL 80.0 - 100.0 fL [facility] Monocytes (Bld) [#/Vol] 0.82 10*3/uL <0.87 k/uL [facility] Monocytes/100 WBC (Bld) 11.0 % [facility] Neutrophils (Bld) [#/Vol] 4.37 10*3/uL 1.45 - 7.50 k/uL [facility] Neutrophils/100 WBC (Bld) 58.6 % [facility] Nucleated RBC (Bld) [#/Vol] 10*3/uL <0.01 k/uL [facility] Nucleated RBC/100 WBC (Bld) [Ratio] 0.0 /100 WBC [facility] Platelet mean volume (Bld) [Entitic vol] 12.2 fL 9.0 - 12.7 fL [facility] Platelets (Bld) [#/Vol] 247 10*3/uL 150 - 400 k/uL [facility] RBC (Bld) [#/Vol] 4.65 10*6/uL 3.90 - 5.2 0 m/uL [facility] WBC (Bld) [#/Vol] 7.45 10*3/uL 3.70 - 11. 00 k/uL [facility] CNOVon 09-12-2021 CNOV Office Visit (NEAGCL M) FIONA GRUBER ([id number]) 1940 F T Date Time Provider Department 09/12/21 10:00 AM SAHRA AMADOR During your visit today, we recorded the following information about you: Temperature Pulse Blood pressure Weight 97 degrees 63/minute 128/62 52.2 kg Height 1.6 m Sahra Amador MD 09/12/2021 10:33 AM Signed NEUROSURGERY POST-OP NOTE Sahra Amador MD PhD Date of visit: September 12, 2021 Patient Name: Ms.Diane Valeri Gruber Date of : 1940 Current Age: [age] year old Sex: female MRN/E# [id number] Last Office Visit: 08/15/2021 SURGERY: Cervical 4-Thoracic 2 posterior instrumented fusion, Cervical 5-7 laminectomy decompression ? Pre-Surgical Symptoms:numbness to left thumb, gait imbalance with falls, weakness to arms bilaterally d/t fall? ? Patient is having their 9 week post operative visit. Patient feels that surgery has helped with her post operative symptoms. She states she still is having left hand numbness. States she has not yet started physical therapy, first session is tomorrow 09/13/2021. States she feels weak in her upper extremities and has some neck stiffness. States she has a hard lump to the right of her incision, denies pain. States she wears the cervical collar intermittently for comfort while driving in the car. States she is taking tylenol intermittently for pain. Denies bowel or bladder dysfunction, gait instability. Denies fever or chills. She is here for evaluation and plan of care. Incision: Healed Current Outpatient Medications Medication Sig Dispense Refill - Alendronate Sodium (FOSAMAX) 70 mg/75 mL solution Take 75 mL by mouth one time a week. 300 mL 11 - acetaminophen (TYLENOL) 325 mg tablet Take 2 tablets by mouth every 4 hours as needed for pain (acute post operative pain). - levothyroxine (SYNTHROID) 25 mcg tablet Take 1 tablet by mouth once daily. - melatonin 3 mg tablet Take 1 tablet by mouth daily at bedtime. - ondansetron (ZOFRAN) 4 mg tablet Take 1 tablet by mouth every 6 hours as needed. - heparin 5,000 unit/mL injection Inject 1 mL subcutaneously every 12 hours. - magnesium hydroxide (MOM) 400 mg/5 mL suspension 30 mL by ORAL/FEEDING TUBE route once daily as needed. - TriFortify Waldo Gel ([employer]) Squeeze tube to fill 1 teaspoon, then swallow twice daily as tolerated Start with 04/12 tsp - cyclobenzaprine (FLEXERIL) 5 mg tablet Take 1 tablet by mouth three times daily. (Patient not taking: Reported on 09/12/2021 ) - senna-docusate (SENNA-S) 8.6-50 mg per tablet 1 tablet by ORAL/FEEDING TUBE route twice daily. (Patient not taking: Reported on 09/12/2021 ) - bisacodyl (DULCOLAX) 10 mg supp 1 Suppository by RECTAL route once daily as needed. (Patient not taking: Reported on 09/12/2021 ) No current facility-administered medications for this visit. Review of Systems Constitutional: Negative for appetite change, chills and fever. HENT: Negative for ear discharge, tinnitus and trouble swallowing. Eyes: Negative for pain, redness and visual disturbance. Respiratory: Negative for cough, shortness of breath and wheezing. Cardiovascular: Negative for chest pain, palpitations and leg swelling. Gastrointestinal: Negative for diarrhea, nausea and vomiting. Endocrine: Negative for cold intolerance and heat intolerance. Genitourinary: Negative for difficulty urinating, frequency and urgency. Musculoskeletal: Positive for neck pain and neck stiffness. Negative for back pain and gait problem. Skin: Negative for color change, rash and wound. Allergic/Immunologic: Negative for environmental allergies and food allergies. Neurological: Positive for numbness. Negative for weakness and headaches. Hematological: Does not bruise/bleed easily. Psychiatric/Behavioral : Negative for agitation and confusion. The patient is not nervous/anxious. PAIN EVALUATION 09/12/2021 0947 Pain Level: 2 Pain Location: Neck Description: Stiffness Duration Units: Weeks Frequency: Intermittent Intervention/Comfort measure: Medication;Therapeutic techniques-CPRP PHYSICAL EXAM: WOUND ASSESSMENT: Incision healing, Well approximated incision, Non-reddened Hard perisagittal lump along right side of incision line w/out breakdown of skin around lump Aaox3, nad, follows commands Strength: L: Delt?5/5, Bi?5/5, Tri?5/5, Refrigerating Machine Operator?5/5, Intrins?5/5 R: Delt?5/5, Bi?5/5, Tri?5/5, Refrigerating Machine Operator?5/5, Intrins?5/5 L: HF?5/5, KE?5/5, DF?5/5, EHL?5/5, PF?5/5 R: HF?5/5, KE?5/5, DF?5/5, EHL?5/5, PF?5/5 Numbness along distal 2-5 digits on left hand Mild left sided thenar eminence wasting ? Negative tafoya's bilaterally No clonus ? Narrow based gait 81 y/o?F?s/p mechanical fall w/ resultant left sided C6/7 facet fracture w/ less than 50% facet fracture area and very mild subluxation?w/?upper extremity weakness, gait imbalance and coronally imb (more content not included)... Normal [facility] XR CERVICAL 2V AP/LATon XR CERVICAL 2V AP/LAT * * *Final Report* * * DATE OF EXAM: Sep 12 2021 10:38AM [id number] - XR CERVICAL 2V AP/LAT / PROCEDURE REASON: Closed nondisplaced fracture of sixth cervical vertebra with delayed healing, un * * * * Physician Interpretation * * * * EXAM: CERVICAL SPINE, 2 VIEWS CLINICAL: 81-year-old female status post closed fracture of sixth cervical vertebrae and surgery TECHNIQUE: AP, lateral, COMPARISON: 07/13/2021 RESULTS: Counting reference: Craniocervical junction.. Status post C4 through T L2 posterior fusion with pedicle screw and russell and laminectomy at C4-C7. Facet degenerative changes from C2 through C4. The facet fracture seen on the previous CT scan of 07/10/2021 are not visualized on this examination. Skin edin have been removed since the previous exam. IMPRESSION: C4-T2 POSTERIOR FUSION WITH LAMINECTOMY AT C4-C7. NO CHANGE COMPARED TO THE PREVIOUS EXAM. Neonatologist: PSCB Transcribe Date/Time: Sep 13 2021 5:25P Dictated by : JAYDON FLOYD MD This examination was interpreted and the report reviewed and electronically signed by: JAYDON FLOYD MD on Sep 13 2021 5:28PM EST [id number] Normal [facility] CNOVon 08-15-2021 CNOV Office Visit (NEAGCL M) FIONA GRUBER ([id number]) 1940 F CHT Date Time Provider Department 08/15/21 2:00 PM SAHRA AMADOR NEAGCLM During your visit today, we recorded the following information about you: Temperature Pulse Blood pressure Weight 97.9 degrees 77/minute 144/65 52.2 kg Height 1.6 m Sahra Amador MD 08/15/2021 2:27 PM Signed NEUROSURGERY POST-OP NOTE Sahra Amador MD PhD Date of visit: August 15, 2021 Patient Name: Ms.Diane Valeri Gruber Date of : 1940 Current Age: [age] year old Sex: female MRN/E# [id number] Last Office Visit: 07/25/2021 SURGERY: Cervical 4-Thoracic 2 posterior instrumented fusion, Cervical 5-7 laminectomy decompression ? Pre-Surgical Symptoms:numbness to left thumb, gait imbalance with falls, weakness to arms bilaterally d/t fall Patient is having their 6 week post operative visit. Patient feels that surgery has improved her presurgical symptoms. She notes some neck pain and stiffness to the right side, but notes this is improving. She states 1-2 weeks after her last post operative appointment she developed all digit numbness to her left hand without any weakness. She denies any weakness to her bilateral upper extremities. She notes her weakness to her bilateral lower extremities has improved. Overall, she is pleased with surgery. Incision: Dry and intact, without redness Current Outpatient Medications Medication Sig Dispense Refill - Alendronate Sodium (FOSAMAX) 70 mg/75 mL solution Take 75 mL by mouth one time a week. 300 mL 11 - acetaminophen (TYLENOL) 325 mg tablet Take 2 tablets by mouth every 4 hours as needed for pain (acute post operative pain). - levothyroxine (SYNTHROID) 25 mcg tablet Take 1 tablet by mouth once daily. - cyclobenzaprine (FLEXERIL) 5 mg tablet Take 1 tablet by mouth three times daily. - melatonin 3 mg tablet Take 1 tablet by mouth daily at bedtime. - ondansetron (ZOFRAN) 4 mg tablet Take 1 tablet by mouth every 6 hours as needed. - heparin 5,000 unit/mL injection Inject 1 mL subcutaneously every 12 hours. - magnesium hydroxide (MOM) 400 mg/5 mL suspension 30 mL by ORAL/FEEDING TUBE route once daily as needed. - senna-docusate (SENNA-S) 8.6-50 mg per tablet 1 tablet by ORAL/FEEDING TUBE route twice daily. - bisacodyl (DULCOLAX) 10 mg supp 1 Suppository by RECTAL route once daily as needed. - TriFortify Waldo Gel ([employer]) Squeeze tube to fill 1 teaspoon, then swallow twice daily as tolerated Start with 04/12 tsp No current facility-administered medications for this visit. Review of Systems Constitutional: Negative for chills, fatigue and fever. HENT: Negative for congestion and sore throat. Eyes: Negative for discharge, itching and visual disturbance. Respiratory: Negative for cough and shortness of breath. Cardiovascular: Negative for chest pain and palpitations. Gastrointestinal: Negative for constipation, diarrhea, nausea and vomiting. Endocrine: Negative for cold intolerance and heat intolerance. Genitourinary: Negative for difficulty urinating, frequency and urgency. Musculoskeletal: Positive for neck pain and neck stiffness. Negative for back pain and gait problem. Skin: Negative for rash and wound. Allergic/Immunologic: Negative for environmental allergies and food allergies. Neurological: Negative for dizziness, weakness, light-headedness, numbness and headaches. Hematological: Does not bruise/bleed easily. Psychiatric/Behavioral : Negative for agitation. The patient is not nervous/anxious. PAIN EVALUATION No data found in the last 1 encounters. PHYSICAL EXAM: WOUND ASSESSMENT: Well approximated incision, Non-reddened Aaox3, nad, follows commands Strength: L: Delt 5/5, Bi 5/5, Tri 5/5, Refrigerating Machine Operator 5/5, Intrins 5/5 R: Delt 5/5, Bi 5/5, Tri 5/5, Refrigerating Machine Operator 5/5, Intrins 5/5 L: HF 5/5, KE 5/5, DF 5/5, EHL 5/5, PF 5/5 R: HF 5/5, KE 5/5, DF 5/5, EHL 5/5, PF 5/5 Numbness along distal 2-5 digits on left hand Mild left sided thenar eminence wasting ? Negative tafoya's bilaterally No clonus ? Narrow based gait 81 y/o?F?s/p mechanical fall w/ resultant left sided C6/7 facet fracture w/ less than 50% facet fracture area and very mild subluxation w/ upper extremity weakness, gait imbalance and coronally imbalanced cervical spine w/ widening of right sided C5/6 facet joint s/p C4-T2 PSF, C5-7 decompression now 6 wks post op recovering appropriately This note was partially generated using [employer] voice recognition system, and there may be some incorrect words, spellings, and punctuation that were not noted in checking the note before saving. - no emergent neurosurgical intervention required - patient with improving weakness; no need for further imaging or medication at this time or if symptoms continue to improve - will monitor left hand numbness for now - patient to follow up in 4 we (more content not included)... Normal [facility] CNOVon 07-25-2021 CNOV Office Visit (NEAGCL M) FIONA GRUBER ([id number]) 1940 F [facility] Date Time Provider Department 07/25/21 11:00 AM SAHRA AMADOR NEAGCLM During your visit today, we recorded the following information about you: Pulse Respiration Blood pressure Weight 93/minute 16/minute 125/60 52.2 kg Height 1.619 m Sahra Amador MD 07/26/2021 10:01 AM Signed NEUROSURGERY POST-OP NOTE Sahra Amador MD PhD Date of visit: July 25, 2021 Patient Name: Ms.Diane Valeri Gruber Date of : 1940 Current Age: [age] year old Sex: female MRN/E# [id number] Last Office Visit: 07/07/2021 SURGERY: Cervical 4-Thoracic 2 posterior instrumented fusion, Cervical 5-7 laminectomy decompression Pre-Surgical Symptoms:numbness to left thumb, gait imbalance with falls, weakness to arms bilaterally d/t fall Patient is having their 1st post operative visit. Patient feels that she is improving since her surgery. She notes cervical pain and stiffness, but notes this has improved. She reports numbness into her her first two fingers to her left hand, but also notes this has improved. She reports her bilateral upper extremity weakness has improved. She denies any recent falls. She reports taking Tylenol as needed for pain. Overall, she is pleased with surgery. Incision: Dry and intact, without redness. Edin removed, patient tolerated well. Current Outpatient Medications Medication Sig Dispense Refill - acetaminophen (TYLENOL) 325 mg tablet Take 2 tablets by mouth every 4 hours as needed for pain (acute post operative pain). - levothyroxine (SYNTHROID) 25 mcg tablet Take 1 tablet by mouth once daily. - cyclobenzaprine (FLEXERIL) 5 mg tablet Take 1 tablet by mouth three times daily. - melatonin 3 mg tablet Take 1 tablet by mouth daily at bedtime. - ondansetron (ZOFRAN) 4 mg tablet Take 1 tablet by mouth every 6 hours as needed. - heparin 5,000 unit/mL injection Inject 1 mL subcutaneously every 12 hours. - magnesium hydroxide (MOM) 400 mg/5 mL suspension 30 mL by ORAL/FEEDING TUBE route once daily as needed. - senna-docusate (SENNA-S) 8.6-50 mg per tablet 1 tablet by ORAL/FEEDING TUBE route twice daily. - bisacodyl (DULCOLAX) 10 mg supp 1 Suppository by RECTAL route once daily as needed. - TriFortify Waldo Gel ([employer]) Squeeze tube to fill 1 teaspoon, then swallow twice daily as tolerated Start with 1/4 tsp No current facility-administered medications for this visit. Review of Systems Constitutional: Negative for chills, fatigue and fever. HENT: Negative for congestion and sore throat. Eyes: Negative for discharge, itching and visual disturbance. Respiratory: Negative for cough and shortness of breath. Cardiovascular: Negative for chest pain and palpitations. Gastrointestinal: Negative for constipation, diarrhea, nausea and vomiting. Endocrine: Negative for cold intolerance and heat intolerance. Genitourinary: Negative for difficulty urinating, frequency and urgency. Musculoskeletal: Positive for neck pain. Negative for back pain, gait problem and neck stiffness. Skin: Negative for rash and wound. Allergic/Immunologic: Negative for environmental allergies and food allergies. Neurological: Negative for dizziness, weakness, light-headedness, numbness and headaches. Hematological: Does not bruise/bleed easily. Psychiatric/Behavioral : Negative for agitation. The patient is not nervous/anxious. PAIN EVALUATION No data found in the last 1 encounters. PHYSICAL EXAM: WOUND ASSESSMENT: Incision healing, Well approximated incision, Non-reddened Aaox3, nad, follows commands Strength: L: Delt 5/5, Bi 5/5, Tri 5/5, Refrigerating Machine Operator 5/5, Intrins 5/5 R: Delt 5/5, Bi 5/5, Tri 5/5, Refrigerating Machine Operator 5/5, Intrins 5/5 L: HF 5/5, KE 5/5, DF 5/5, EHL 5/5, PF 5/5 R: HF 5/5, KE 5/5, DF 5/5, EHL 5/5, PF 5/5 Mild numbness along C8 distribution of left hand Negative tafoya's bilaterally No clonus Narrow based gait 81 y/o?F?s/p mechanical fall w/ resultant left sided C6/7 facet fracture w/ less than 50% facet fracture area and very mild subluxation w/ upper extremity weakness, gait imbalance and coronally imbalanced cervical spine w/ widening of right sided C5/6 facet joint s/p C4-T2 PSF, C5-7 decompression now 2 wks post op recovering appropriately This note was partially generated using [employer] voice recognition system, and there may be some incorrect words, spellings, and punctuation that were not noted in checking the note before saving. - no emergent neurosurgical intervention required - patient recovering appropriately, edin removed while in office - patient with improving weakness, and with residual numbness that is also improving; no need for further imaging or medication at this time or if symptoms continue to improve - patient to follow up in 4 weeks to assess continued improvement in symptoms - patient to we (more content not included)... Normal [facility] Basic metabolic 2000 panelon 07-18-2021 Anion gap [Moles/Vol] 11 mmol/L Normal 9-18 [facility] Comment on above: Order Comment: Speci men Type: BLOOD SPECIMENOrdering Facility: [facility] Address: [address] [address] Performed By: #### 1 3317-3 #### [facility] CLIA [id number] [address] [place] Calcium [Mass/Vol] 9.0 mg/dL Normal 8.5-10.2 [facility] Comment on above: Order Comment: Speci men Type: BLOOD SPECIMENOrdering Facility: [facility] Address: [address] [address] Performed By: #### 1 3317-3 #### [facility] CLIA [id number] [address] [place] Chloride [Moles/Vol] 99 mmol/L Normal 97-105 [facility] Comment on above: Order Comment: Speci men Type: BLOOD SPECIMENOrdering Facility: [facility] Address: [address] [place] [address] Performed By: #### 1 7-3 #### [facility] CLIA [id number] [address] [place] CO2 [Moles/Vol] 25 mmol/L Normal 22-30 [facility] Comment on above: Order Comment: Speci men Type: BLOOD SPECIMENOrdering Facility: [facility] Address: [address] [place] [address] Performed By: #### 1 3317-3 #### [facility] CLIA [id number] [address] [place] Creatinine [Mass/Vol] 0.67 mg/dL Normal 0.58-0.96 [facility] Comment on above: Order Comment: Speci men Type: BLOOD SPECIMENOrdering Facility: [facility] Address: [address] [place] [address] Performed By: #### 1 3317-3 #### [facility] CLIA [id number] [address] [place] ESTIMATED GLOMERULAR FILTRATION RATE 88 mL/min/1.73m??? Normal >=60 [facility] Comment on above: Order Comment: Steph whiting Type: BLOOD SPECIMENOrdering Facility: [facility] Address: [address] [address] Result Comment: Lawanda mated Glomerular Filtration Rate (eGFR) is calculated using the 2020 CKD-EPI creatinine equation. This equation utilizes serum creatinine, sex, and age as parameters. The creatinine assay has traceable calibration to isotope dilution-mass spectrometry. Refer to KDIGO guidelines for clinical interpretation. In patients with unstable renal function, e.g. those with acute kidney injury, the eGFR may not accurately reflect actual GFR. Performed By: #### 1 3317-3 #### [facility] CLIA [id number] [address] [place] [address] [place] Glucose [Mass/Vol] 95 mg/dL Normal 74-99 [facility] Comment on above: Order Comment: tSeph whiting Type: BLOOD SPECIMENOrdering Facility: [facility] Address: [address] [place] [address] Result Comment: The [place] Diabetes Association (ADA) provides guidance for cutoff values for fasting glucose and random glucose. The ADA defines fasting as no caloric intake for at least 8 hours. Fasting plasma glucose results between 100 to 125 mg/dL indicate increased risk for diabetes (prediabetes). Fasting plasma glucose results greater than or equal to 126 mg/dL meet the criteria for diagnosis of diabetes. In the absence of unequivocal hyperglycemia, results should be confirmed by repeat testing. In a patient with classic symptoms of hyperglycemia or hyperglycemic crisis, random plasma glucose results greater than or equal to 200 mg/dL meet the criteria for diagnosis of diabetes. Reference: Standards of Medical Care in Diabetes 2016, [place] Diabetes Association. Diabetes Care. 2016.39(Suppl 1). Performed By: #### 1 3317-3 #### [facility] CLIA [id number] [address] [place] [address] [place] Potassium [Moles/Vol] 3.7 mmol/L Normal 3.7-5.1 [facility] Comment on above: Order Comment: Steph whiting Type: BLOOD SPECIMENOrdering Facility: [facility] Address: [address] [address] Performed By: #### 1 3317-3 #### [facility] CLIA [id number] [address] [place] [facility] Sodium [Moles/Vol] 135 mmol/L Low 136-144 [facility] Comment on above: Order Comment: Speci men Type: BLOOD SPECIMENOrdering Facility: [facility] Address: [address] [place] [address] Performed By: #### 1 7-3 #### [facility] CLIA [id number] [address] [place] Urea nitrogen [Mass/Vol] 15 mg/dL Normal 7-21 [facility] Comment on above: Order Comment: Speci men Type: BLOOD SPECIMENOrdering Facility: [facility] Address: [address] [place] [address] Performed By: #### 1 7-3 #### [facility] CLIA [id number] [address] CBC panel Auto (Bld)on 07-18 Erythrocyte distribution width (RBC) [Ratio] 15.0 % Normal 11.5-15.0 [facility] Comment on above: Order Comment: Speci men Type: BLOOD SPECIMENOrdering Facility: [facility] Address: [address] [place] [address] Performed By: #### 1 7-3 #### [facility] CLIA [id number] [address] [place] Hematocrit (Bld) [Volume fraction] 31.8 % Low 36.0-46.0 [facility] Comment on above: Order Comment: Speci men Type: BLOOD SPECIMENOrdering Facility: [facility] Address: [address] [place] [address] Performed By: #### 1 3317-3 #### [facility] CLIA [id number] [address] [place] Hemoglobin (Bld) [Mass/Vol] 10.2 g/dL Low 11.5-15.5 [facility] Comment on above: Order Comment: Speci men Type: BLOOD SPECIMENOrdering Facility: [facility] Address: [address] [place] [address] Performed By: #### 1 7-3 #### [facility] CLIA [id number] [address] MCH (RBC) [Entitic mass] 28.4 pg Normal 26.0-34.0 [facility] Comment on above: Order Comment: Speci men Type: BLOOD SPECIMENOrdering Facility: [facility] Address: [address] [place] [address] Performed By: #### 1 7-3 #### [facility] CLIA [id number] [address] MCHC (RBC) [Mass/Vol] 32.1 g/dL Normal 30.5-36.0 [facility] Comment on above: Order Comment: Speci men Type: BLOOD SPECIMENOrdering Facility: [facility] Address: [address] [place] [address] Performed By: #### 1 7-3 #### [facility] CLIA [id number] [address] MCV (RBC) [Entitic vol] 88.6 fL Normal 80.0-100.0 [facility] Comment on above: Order Comment: Speci men Type: BLOOD SPECIMENOrdering Facility: [facility] Address: [address] [place] [address] Performed By: #### 1 7-3 #### [facility] CLIA [id number] [address] Nucleated RBC (Bld) [#/Vol] 10*3/uL Normal <0.01 [facility] Comment on above: Order Comment: Speci men Type: BLOOD SPECIMENOrdering Facility: [facility] Address: [address] [place] [address] Performed By: #### 1 7-3 #### [facility] CLIA [id number] [address] [place] Platelet mean volume (Bld) [Entitic vol] 10.5 fL Normal 9.0-12.7 [facility] Comment on above: Order Comment: Speci men Type: BLOOD SPECIMENOrdering Facility: [facility] Address: [address] [place] [address] Performed By: #### 1 3317-3 #### [facility] CLIA [id number] [address] [place] Platelets (Bld) [#/Vol] 307 10*3/uL Normal 150-400 [facility] Comment on above: Order Comment: Speci men Type: BLOOD SPECIMENOrdering Facility: [facility] Address: [address] [place] [address] Performed By: #### 1 7-3 #### [facility] CLIA [id number] [address] RBC (Bld) [#/Vol] 3.59 10*6/uL Low 3.90-5.20 [facility] Comment on above: Order Comment: Speci men Type: BLOOD SPECIMENOrdering Facility: [facility] Address: [address] [place] [address] Performed By: #### 1 7-3 #### [facility] CLIA [id number] [address] WBC (Bld) [#/Vol] 9.62 10*3/uL Normal 3.70-11.00 [facility] Comment on above: Order Comment: Speci men Type: BLOOD SPECIMENOrdering Facility: [facility] Address: [address] [place] [address] Performed By: #### 1 3317-3 #### [facility] CLIA [id number] [address] CNDSon 07-18-2021 CNDS HNO ID: [id number] Author: Indira Villaseñor PA-C Service: Neurosurgery Author Type: Physician Zipper Setter Chainstitch Type: Discharge Summary Filed: 07/18/2021 11:51 AM Note Text: DISCHARGE SUMMARY PATIENT NAME: Fiona Gruber Code Status: Not on file ADMISSION DATE: 07/07/2021 DISCHARGE DATE: July 18, 2021 Highest Readmission Risk Score: 6 The 30 day readmissions risk score is derived from an internally validated risk model which evaluates patient level characteristics, utilization history, medication orders and lab results up until the day of discharge. Patients with a score of 40 or above are considered highest risk for readmission. Specific patient level drivers will be listed at the bottom of the summary. REASON FOR HOSPITALIZATION: elective spine surgery DIAGNOSIS: Active Problems: Hypothyroidism, acquired POA: Yes C6 cervical fracture (HCC) POA: Yes Resolved Problems: * No resolved hospital problems. * HOSPITAL COURSE: You had cervical spine surgery as planned. You were then taken to Neurology ICU for close management and blood pressure stabilization. In the ICU you did well and you were then transferred to 8100 for excellent nursing care, pain control and therapy. You did very well with your recovery and on you were ambulating with therapy, voiding without issue and tolerating your diet. Your pain was well controlled and you were found to be stable for discharge to custodial facility. CONSULTING TEAMS DURING HOSPITALIZATION: Neurology ICU, anesthesia, hospital medicine, PT/OT, care management, speech therapy PATIENT CONDITION AT DISCHARGE: Stable DISCHARGE DISPOSITION: [facility] Facility PHYSICAL EXAM: Exam: GENERAL: No distress, Alert, resting comfortably in bed NEURO: oriented x 3, makes eye contact, speech clear and fluent, hearing grossly intact Strength: pain limited RUE ? LUE D 4-/5 ? D 4-/5 B 5/5 ? B 5/5 T 5/5 ? T 4-/5 G 5/5 ? G 5/5 ? ? ? RLE ? LLE HF 5/5 ? HF 5/5 KE 5/5 ? KE 5/5 KF 5/5 ? KF 5/5 DF 5/5 ? DF 5/5 PF 5/5 ? PF 5/5 Sensory: normal sensation to touch in the UE and LE Motor: normal muscle tone, no tremor or spasticity, no pronator drift HEENT: normocephalic, atraumatic NECK/BACK: cervical collar in place, edin in place on post-op cervical wound, wound is clean, dry, and intact LUNGS: Unlabored reathing CARDIAC: Regular rate and rhythm EXTREMITIES: MANRIQUE, No deformities, No edema PSYCH: appropriate mood, affect, and conversation INFORMATION PROVIDED TO PATIENT: see D/C instructions ALLERGIES No Known Allergies DISCHARGE MEDICATION: Current Discharge Medication List START taking these medications cyclobenzaprine (FLEXERIL) 5 mg Take 5 mg by mouth three times daily. melatonin 3 mg Take 3 mg by mouth daily at bedtime. ondansetron (ZOFRAN) 4 mg Take 4 mg by mouth every 6 hours as needed. heparin 5,000 Units Inject 5,000 Units subcutaneously every 12 hours. magnesium hydroxide (MOM) 30 mL 30 mL by ORAL/FEEDING TUBE route once daily as needed. senna-docusate (SENNA-S) 1 tablet 1 tablet by ORAL/FEEDING TUBE route twice daily. bisacodyl (DULCOLAX) 10 mg 10 mg by RECTAL route once daily as needed. CONTINUE these medications which have CHANGED acetaminophen (TYLENOL) 650 mg Take 650 mg by mouth every 4 hours as needed for pain (acute post operative pain). levothyroxine (SYNTHROID) 25 mcg Take 25 mcg by mouth once daily. CONTINUE these medications which have NOT CHANGED TriFortify Waldo Gel ([employer]) Squeeze tube to fill 1 teaspoon, then swallow twice daily as tolerated Start with 1/4 tsp STOP taking these medications aspirin 81 mg Comments: Reason for Stopping: Alendronate Sodium (FOSAMAX) 70 mg Comments: Reason for Stopping: I evaluated the patient, and have reviewed their diagnosis and clinical course. They were evaluated for non-narcotic pain medications as the sole course of therapy, and were not a candidate. I find the opiate prescribed upon discharge, although greater than a 30 morphine equivalent dose and/or greater than a one week duration, is an appropriate dose for this patient. FUTURE APPOINTMENTS: Follow Up with Dr Amador in 1 week TIME OF CARE: Discharge Management: I personally spent greater than 30 minutes involved in the discharge management of this patient. SIGNATURE: Indira Villaseñor PA-C Pager: [phone] DATE: July 18, 2021 TIME: 11:44 AM Normal [facility] SARS-CoV-2 RNA Resp Ql KY+p chanda 07-18-2021 SARS-CoV-2 (COVID-19) RNA KY+probe Ql (Resp) COVID 19 RESULT: SARS-CoV-2 (Agent of COVID-19) Not Detected by RT-PCR or equivalent method. This test has been authorized by FDA under an Emergency Use Authorization (EUA). Normal [facility] Comment on above: Performed By: #### 9 4500-6 #### [facility] CLIA [id number] [address] THERAPY NTon 07-17-2021 THERAPY NT HNO ID: [id number] Author: Oneida Farfan OTR/L Service: Occupational Therapy Author Type: Occupational Therapist Type: Therapy (PT/OT/Speech/Resp) Filed: 07/17/2021 12:00 PM Note Text: Occupational Therapy Treatment SERVICE DATE: 07/17/2021 SERVICE TIME: 1133 to 1153 ROOM: [place] [address] Recommended Discharge Disposition: Subacute/SNF Recommended Discharge Disposition Comments: Pt is currently functioning well below functional baseline at this time and was completly independent with all ADL's and functional transfers 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 Pt requiring increased assist with all tasks at this date due to increased pain, weakness, and decreased safety awareness. Would benefit from SNF once medically stable to assist with returning to PLOF and maximizing independence. Recommended Discharge Disposition Due to: Patient requires daily, facility-based rehabilitation from at least one discipline due to:;ADL impairment resulting in caregiver dependence;decline in functional status requiring daily skilled care;new / worsened cognitive deficits related to current diagnosis;ongoing intervention of multiple therapy disciplines OT 6 Clicks Score: 15 Patient sitting up in chair upon OT arrival with family present at bedside. Patient able to mobilize up and down hallway the session. Patient only able to verbalize 1 out of 3 cervical precautions. Precautions/Activity Restrictions: Fall Risk;Spine Precaution/Activity Restriction Comments: C-Collar at all times Current Hospital Course: 81 y/o female presented to hospital on 07/07/2021 for increased numbness and tingling in L hand. Pt with recent hospital admission after ground level fall with C6-C7 fx. Pt POD 07/12/2021 C5-C7 lami. transfer to [facility] 07/14 Reason for Hospital Admission: numbess/tingling L index finger Relevant Past Medical History: osteoporosis, DEMETRA, arthritis of knees, hypothyroidism, osteopenia, IBS, sciatica Response to Therapy Interventions: Good participation in activities Occupational Therapy Problem List: Cognitive Deficit;Impaired Self Care;Safety Deficits;Decreased Activity Tolerance;Decreased Range Of Motion;Functional Mobility Impairment;Balance Impaired;Decreased Strength Cognition/Communicatio n Deficits Orientation Deficits: (n/a) Responsiveness: Alert Follows Commands: 2-step Commands, Cueing Needed Cueing to Follow Commands: Minimum Treatment Interventions: Education;Self Care / Home Management;Energy Conservation Training;Strengthening ;Functional Mobility Training;Balance Training;Cognitive Training Home Environment Patient Lives With: Spouse Assistance Available: 24 Hour Entry To Home: With Rail;Stairs Number Of Stairs Into Home: 2 Number Of Stairs To Bed/Bath: 0 Tub/Shower Type: tub with extended tub bench Laundry: Basement, will complete Equipment Owned: Wheeled Walker;Extended tub bench Prior Functional Level: Within Functional Limits Prior Functional Level Comments: 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 Educated on figure 4 technique due to bending restriction. Toileting Maximal Assistance Completed while seated, cues for safety. Functional Mobility Assist Level Additional Information Rolling Moderate Assistance Supine to Sit Moderate Assistance Sit to Supine Scooting Minimal Assistance Sit to Stand Minimal Assistance Min verbal direction for proper hand placement, so patient does not pull on walker frame. Stand to Sit Minimal Assistance Cues to back up until she fell chair behind both legs. Instructed patient to reach back while demonstrating good eccentric control when sitting down into chair. Bed to Chair Toilet/Commode Minimal Assistance Min verbal direction for hand and body placement when getting on and off the commode. Increased direction to use grab rail on the right side. Shower Functional Mobility Contact Guard Assistance;Additional Information Wheeled Walker Challenged patient to complete functional mobility up and down the hallway for about 8 minutes. Discussed energy conservation, good walker management and fall prevention techniques. Instructed patient on the benefit and value of receiving continued OT services at d/c to increased independence with self care and functional transfers. Discussed energy conservation throughout session as needed. Blank hill indicate activity not attempted Balance: Static Sitting;Dynamic Sitting;Static Standing;Dynamic Standing Static Sitting Balance: Good Patient able to maintain balance witho (more content not included)... Normal [facility] THERAPY NT HNO ID: [id number] Author: Carlos A White, PT Service: Physical Therapy Author Type: Physical Therapist Type: Therapy (PT/OT/Speech/Resp) Filed: 07/17/2021 9:49 AM Note Text: Physical Therapy Treatment SERVICE DATE: 07/17/2021 SERVICE TIME: 899 to 922 ROOM: [place] [address] Recommended Discharge Disposition: Subacute/SNF Recommended Discharge Disposition Comments: Patient previously IND and is now functioning below baseline this date. Patient would benefit from discharge to SNF to maximize functional mobility, progress overall strength and improve activity tolerance to progress toward PLOF Recommended Discharge Disposition Due to: Patient requires daily, facility-based rehabilitation from at least one discipline due to:;ADL impairment resulting in caregiver dependence;decline in functional status requiring daily skilled care PT 6 Clicks Score: 18 Patient continues to progress with mobility, able to trial stairs today however continues to have difficulty remembering precautions with one loss of balance during ambulation requiring minimal assistance to recover. Continues to also require assistance with bed mobility and sit>stand transfer. Continue to recommend further therapies in a custodial facility prior to return home to maximize her functional outcomes. Will continue to follow during acute stay as appropriate to facilitate improved independent functional mobility. Precautions/Activity Restrictions: Fall Risk;Spine Precaution/Activity Restriction Comments: C-Collar at all times Current Hospital Course: 81 y/o female presented to hospital on 07/07/2021 for increased numbness and tingling in L hand. Pt with recent hospital admission after ground level fall with C6-C7 fx. Pt POD 07/12/2021 C5-C7 lami. transfer to [facility] 07/14 Reason for Hospital Admission: numbess/tingling L index finger Relevant Past Medical History: osteoporosis, DEMETRA, arthritis of knees, hypothyroidism, osteopenia, IBS, sciatica Response to Therapy Interventions: Good participation in activities Continue skilled needs due to: Functional mobility/skill impairments, Safety concerns Physical Therapy Problem List: Cognitive Deficit;Pain;Safety Deficits;Impaired Self Care;Decreased Activity Tolerance;Decreased Strength;Functional Mobility Impairment;Balance Impaired Treatment Interventions: Education;Self Care / Home Management;Energy Conservation Training;Strengthening ;Functional Mobility Training;Balance Training;Neuromuscular Re-education;Pain Management Plan for next visit: Bed mobility, Chair transfer training, Sit to Stand Transfers, Gait training, Fall prevention, Stairs training, Family instruction Home Environment Patient Lives With: Spouse Assistance Available: 24 Hour Entry To Home: With Rail;Stairs Number Of Stairs Into Home: 2 Number Of Stairs To Bed/Bath: 0 Tub/Shower Type: tub with extended tub bench Laundry: Basement, will complete Equipment Owned: Wheeled Walker;Extended tub bench Prior Functional Level: Within Functional Limits Prior Functional Level Comments: 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 Current Functional Mobility Assist Level Additional Information Rolling Minimal Assistance;Additional Information cues/assist for log roll technique Supine to Sit Minimal Assistance;Additional Information from flat bed, use of bed rail. cues/assist at trunk, patient able to manage her LEs, assist needed to ligt trunk Sit to Supine Moderate Assistance;Additional Information Scooting Sit to Stand Minimal Assistance;Additional Information cues for hand placement and to power up through her legs. patient attempted first, cued to scoot closer to edge of bed, she used momentum however still unable to achieve upright stance without assistance Stand to Sit Contact Guard Assistance;Additional Information cues to complete full turn with walker and reach back for armrest Bed to Chair Moderate Assistance (x2) Bed To Chair Transfer Type: Stepping Bed To Chair Transfer Equipment: Gait Belt Toilet/Commode Contact Guard Assistance;Additional Information Gait Contact Guard Assistance;Minimal Assistance;Additional Information Gait Device: Wheeled Walker Gait Distance (feet): 50x2 cues for upright posture, slow amirah with 1 LOB when she was worried about hitting therapist with walker requiring [place] to recover Stairs Minimal Assistance;Additional Information Stairs Device: Rail (x2) Number of Stairs: 4 non-alternating stepping, cues to feel for stairs with feet secondary to c (more content not included)... Normal [facility] THERAPY NTon 07-16-2021 THERAPY NT HNO ID: [id number] Author: Carlos A White, PT Service: Physical Therapy Author Type: Physical Therapist Type: Therapy (PT/OT/Speech/Resp) Filed: 07/16/2021 9:51 AM Note Text: Physical Therapy Treatment SERVICE DATE: 07/16/2021 SERVICE TIME: 830 to 902 ROOM: [place] [address] Recommended Discharge Disposition: Subacute/SNF Recommended Discharge Disposition Comments: Patient previously IND and is now functioning below baseline this date. Patient would benefit from discharge to SNF to maximize functional mobility, progress overall strength and improve activity tolerance to progress toward PLOF Recommended Discharge Disposition Due to: Patient requires daily, facility-based rehabilitation from at least one discipline due to:;ADL impairment resulting in caregiver dependence;decline in functional status requiring daily skilled care PT 6 Clicks Score: 17 Patient progressing well with PT goals, met mobility goals of minimal assistance with goals updated below. At this time she still requires assistance with bed mobility and sit<>stand transfers however once she is on her feet only requires contact guard assistance for safety with use of a walker. Would continue to recommend ongoing therapies in a custodial facility at this time however pending ongoing progress she may be able to return home with home therapies if she has / assistance available. Will continue to work with her during acute stay to progress mobility and update discharge recommendations as appropriate. Precautions/Activity Restrictions: Fall Risk;Spine Precaution/Activity Restriction Comments: C-Collar at all times Current Hospital Course: 81 y/o female presented to hospital on 07/07/2021 for increased numbness and tingling in L hand. Pt with recent hospital admission after ground level fall with C6-C7 fx. Pt POD 07/12/2021 C5-C7 lami. transfer to [facility] 07/14 Reason for Hospital Admission: numbess/tingling L index finger Relevant Past Medical History: osteoporosis, DEMETRA, arthritis of knees, hypothyroidism, osteopenia, IBS, sciatica Response to Therapy Interventions: Good participation in activities, On-track to achieve discharge goals Continue skilled needs due to: Functional mobility/skill impairments, Safety concerns Physical Therapy Problem List: Cognitive Deficit;Pain;Safety Deficits;Impaired Self Care;Decreased Activity Tolerance;Decreased Strength;Functional Mobility Impairment;Balance Impaired Treatment Interventions: Education;Self Care / Home Management;Energy Conservation Training;Strengthening ;Functional Mobility Training;Balance Training;Neuromuscular Re-education;Pain Management Plan for next visit: Bed mobility, Chair transfer training, Sit to Stand Transfers, Gait training, Fall prevention, Stairs training, Family instruction Home Environment Patient Lives With: Spouse Assistance Available: 24 Hour Entry To Home: With Rail;Stairs Number Of Stairs Into Home: 2 Number Of Stairs To Bed/Bath: 0 Tub/Shower Type: tub with extended tub bench Laundry: Basement, will complete Equipment Owned: Wheeled Walker;Extended tub bench Prior Functional Level: Within Functional Limits Prior Functional Level Comments: 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 hopeful to go home. stated her memory is poor when initially asked if she remembered her precautions CURRENT FUNCTIONAL STATUS: Most recent performance, mobility performed during session in bold, other mobility completed during prior session and may no longer be correct or appropriate to complete. Current Functional Mobility Assist Level Additional Information Rolling Minimal Assistance;Additional Information cues/assist for log roll technique Supine to Sit Minimal Assistance;Additional Information from flat bed, use of bed rail. cues/assist at trunk, patient able to manage her LEs with verbal cues only for log roll technique Sit to Supine Moderate Assistance;Additional Information Scooting Sit to Stand Minimal Assistance;Additional Information cues for hand placement and to power up through her legs Stand to Sit Contact Guard Assistance;Additional Information cues to complete full turn with walker and reach back for armrest Bed to Chair Moderate Assistance (x2) Bed To Chair Transfer Type: Stepping Bed To Chair Transfer Equipment: Gait Belt Toilet/Commode Contact Guard Assistance;Additional Information patient independence with frontal pericares Gait Contact Guard Assistance;Additional Information Gait Device: Wheeled Walker Gait Distance (feet): 50x2, 20x2 cues for upright posture, avoidance of obstacles in room. slow gait but no overt LOB Stairs Curb Step Car Transfer Blank hill indicate activity not attempted General Deviations/Observation s: Amirah decreased;Step length decreased;Non-function al gait speed (more content not included)... Normal [facility] THERAPY NTon 07-15-2021 THERAPY NT HNO ID: [id number] Author: Shanell Lynch PTA Service: Physical Therapy Author Type: Executive Vice President Type: Therapy (PT/OT/Speech/Resp) Filed: 07/15/2021 2:19 PM Note Text: Attestation signed by Sheila Galvez PT at 07/15/2021 4:14 PM I reviewed and agree with the documentation corresponding to this therapy visit. SIGNATURE: Sheila Galvez PT DATE: July 15, 2021 TIME: 4:14 PM Physical Therapy Treatment SERVICE DATE: 07/15/2021 SERVICE TIME: 1325 to 1352 ROOM: [id number] Recommended Discharge Disposition: Subacute/SNF Recommended Discharge Disposition Comments: Patient previously IND and is now functioning below baseline this date. Patient would benefit from discharge to SNF to maximize functional mobility, progress overall strength and improve activity tolerance to progress toward PLOF Recommended Discharge Disposition Due to: Patient requires daily, facility-based rehabilitation from at least one discipline due to:;ADL impairment resulting in caregiver dependence;decline in functional status requiring daily skilled care PT 6 Clicks Score: 15 Patient making progress toward goals with improvement today with her bed mobility and gait stability/endurance with use of wheeled walker. Patient required cues to recall and adhere to her spine precautions and reports that pain improved to 4-5/10 by end of session. Spouse present and observed session. Patient reports feeling more stable with use of wheeled walker at this time. Goals ongoing. Precautions/Activity Restrictions: Fall Risk;Spine Precaution/Activity Restriction Comments: C-Collar at all times Current Hospital Course: 81 y/o female presented to hospital on 07/07/2021 for increased numbness and tingling in L hand. Pt with recent hospital admission after ground level fall with C6-C7 fx. Pt POD 07/12/2021 C5-C7 lami. transfer to [facility] 07/14 Reason for Hospital Admission: numbess/tingling L index finger Relevant Past Medical History: osteoporosis, DEMETRA, arthritis of knees, hypothyroidism, osteopenia, IBS, sciatica Response to Therapy Interventions: Good participation in activities, Improved tolerance for activity, Notable progression with functional activities/skills, Requires additional time to complete activities Continue skilled needs due to: Functional mobility/skill impairments, Safety concerns Physical Therapy Problem List: Cognitive Deficit;Pain;Safety Deficits;Impaired Self Care;Decreased Activity Tolerance;Decreased Strength;Functional Mobility Impairment;Balance Impaired Treatment Interventions: Education;Self Care / Home Management;Energy Conservation Training;Strengthening ;Functional Mobility Training;Balance Training;Neuromuscular Re-education;Pain Management Home Environment Patient Lives With: Spouse Assistance Available: 24 Hour Entry To Home: With Rail;Stairs Number Of Stairs Into Home: 2 Number Of Stairs To Bed/Bath: 0 Tub/Shower Type: tub with extended tub bench Laundry: Basement, will complete Equipment Owned: Wheeled Walker;Extended tub bench Prior Functional Level: Within Functional Limits Prior Functional Level Comments: 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 Current Functional Mobility Assist Level Additional Information Rolling Minimal Assistance;Additional Information cues/assist to bend/push through her legs and reach crossbody for rail and cues to avoid twisting Supine to Sit Moderate Assistance;Additional Information cues/assist for logroll to her right, placement of hands to help raise her trunk and to move legs over EOB, required extra time Sit to Supine Moderate Assistance;Additional Information cues to lower onto her right shoulder with assistance to return legs into bed Scooting Sit to Stand Minimal Assistance;Additional Information cues for hand placement and to power up through her legs Stand to Sit Minimal Assistance;Additional Information cues to align closer to EOB/HOB, reach for bed and eccentric control Bed to Chair Moderate Assistance (x2) Bed To Chair Transfer Type: Stepping Bed To Chair Transfer Equipment: Gait Belt Toilet/Commode Gait Minimal Assistance;Additional Information Gait Device: Wheeled Walker Gait Distance (feet): intervals of 20-22ft cues to keep within walker frame with erect posture and increase foot clearance, cues to safely navigate obstacles Stairs Curb Step Car Transfer Blank hill indicate activity not attempted General Deviations/Observation s: Amirah decreased;Step length decreased;Improper distancing from a (more content not included)... Normal [facility] THERAPY NT HNO ID: [id number] Author: Germania Castro CCC-SALES ASSISTANT Service: Speech/Swallow Author Type: Speech Language Pathologist Type: Therapy (PT/OT/Speech/Resp) Filed: 07/15/2021 11:27 AM Note Text: Speech Therapy Clinical Swallow Evaluation SERVICE DATE: 07/15/2021 SERVICE TIME: 1110 to 1125 ROOM: [place] [address] IMPRESSION: Functional oropharyngeal phases of swallowing: without identified risk for aspiration Diet Recommendations: Regular Consistency Thin Liquids IDDSI Level 0 Swallowing Precautions Recommendations: Feed / Eat at a slow rate Self-monitoring Sit upright 90 degrees for all PO Nursing Recommendations: Reinforce use of swallowing strategies Recommended Discharge Disposition: No further skilled speech therapy services anticipated Current Hospital Course: 07/07: Chest xray: no acute abnormality. 07/12 OR for C4-T2 posterior fusion, C5-7 laminectomy decompression. 07/13 CT Cervical Spine: post op changes Reason for Hospital Admission: numbess/tingling L index finger Rehabilitation Precautions: Dysphagia;Spine Reason for Speech Therapy Consult: Dysphagia Relevant Past Medical History: fall with cervical spine fx, pill dysphagia Response to Therapy Interventions: Good Participation in activities, Receptive Family / Caregivers Patient Report: I chew my pills Current Status Oral Hygiene: Clear, moist oral cavity, Oral Health Assessment Tool (OHAT) Dentition: Retains Natural Dentition Current Feeding Method: Oral Current Diet Textures: Regular Consistency, Thin Liquids IDDSI Level 0 Current Level Of Communication: Verbal Current Management Of Secretions: Able to expectorate adequately Oral Motor Exam: Within Functional Limits Oral Health Assessment Tool (OHAT) Lips: 0 Tongue: 0 Gums and Tissues: 0 Saliva: 0 Natural Teeth: 0 Dentures: N/A Oral Cleanliness: 0 Dental Pain: 0 OHAT Total Score: 0 Swallow Assessment Position Of Patient During Assessment: Upright In Chair Consistencies Presented: Thin Liquids IDDSI Level 0, Solid Compensatory Strategies Utilized During Assessment: Feed / Eat at a slow rate, Sit upright 90 degrees for all PO, Small Bite/Sip Previous Swallow Study: Clinical Swallow (07/07/21 regular/thin) Clinical Swallow Assessment Oral Pharyngeal Swallow Assessment: Within Functional Limits -Patient alert, up in chair on SALES ASSISTANT arrival, agreeable to evaluation with son present -Able to feed self -Mastication timely for solids -No oral residuals post swallow -Laryngeal movement detected upon palpation of swallow -No cough, throat clear, or change in vocal quality with po trials -Completed 3 oz water challenge with no cough, throat clear, or change in vocal quality -Oropharyngeal swallow function appears clinically WFL at this time -Recommend diet and strategies as above -Cannot rule out aspiration with clinical assessment only, if further concern, recommend instrumental assessment -Will sign off, please re-consult if change in Patient status Patient /Caregiver Goals: Eat/Drink Without Restrictions PLAN: ST Frequency: Discontinue therapy services Reasons Inpatient Therapy Services Discontinued: No skilled needs Plan of Care Developed with: Patient;Family Results and Recommendations Discussed With: Patient;Family TREATMENT INTERVENTIONS: Therapy Diagnosis: No Skilled Need Interventions Provided: Clinical Swallow Evaluation (91158) $ Clinical Swallow Evaluation (80860) Billed Units: 1 unit Training and education provided in: Dietary Consistencies, Dysphagia Management, Swallowing Strategies The following therapeutic skills were used:: Discharge planning, Education on role of discipline / importance of activity, Family / caregiver counseling / training Skilled Treatment Time (minutes): 15 Home Environment Prior Functional Level: Required Assistance Patient Lives With: Spouse Assistance Available: PRN Prior Swallowing Function/Diet Textures: Regular Consistency;Thin Liquids IDDSI Level 0 Please see discipline specific clinical documentation flowsheet for complete details for this therapy evaluation/treatment. SIGNATURE: Germania Castro CCC-SALES ASSISTANT PATIENT NAME: Fiona Gruber DATE: July 15, 2021 TIME: 11:26 AM Normal [facility] THERAPY NT HNO ID: [id number] Author: ANIYA Banks/Balwinder Service: Occupational Therapy Author Type: Occupational Therapist Type: Therapy (PT/OT/Speech/Resp) Filed: 07/15/2021 11:26 AM Note Text: Occupational Therapy Evaluation SERVICE DATE: 07/15/2021 SERVICE TIME: 1020 to 1050 ROOM: [id number] Recommended Discharge Disposition: Subacute/SNF Recommended Discharge Disposition Comments: Pt is currently functioning well below functional baseline at this time and was completly independent with all ADL's and functional transfers 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 Pt requiring increased assist with all tasks at this date due to increased pain, weakness, and decreased safety awareness. Would benefit from SNF once medically stable to assist with returning to PLOF and maximizing independence. Recommended Discharge Disposition Due to: Patient requires daily, facility-based rehabilitation from at least one discipline due to:;ADL impairment resulting in caregiver dependence;decline in functional status requiring daily skilled care;new / worsened cognitive deficits related to current diagnosis;ongoing intervention of multiple therapy disciplines OT 6 Clicks Score: 15 Patient making progress towards OT goals. Cognition seems to be improving. Educated patient on BLT precautions to protect spine/neck with ADLs / IADLs. Discussed how techniques apply to pt's individual situation/needs and provided handout. Therapist demonstrated figure four technique to complete LB dressing. Patient was able to demonstrate carry over by doffing/donning socks using technique. Patient was able to stand with some physical assist and perform functional mobility to/from bathroom. In bathroom, patient performed oral care standing at sink. Patient required some extended time and verbal cueing to maintain precautions to not bend forward. Patient also required assist with opening toothpaste and toothbrush due to weakness in hands. Patient stated her legs were feeling a little weak during ADL but not too bad. To sit, patient required cueing to back up far enough and reach for arm rests along with some physical assist for a slow, controlled sit. Precautions/Activity Restrictions: Fall Risk;Spine Precaution/Activity Restriction Comments: C-Collar at all times Current Hospital Course: 81 y/o female presented to hospital on 07/07/2021 for increased numbness and tingling in L hand. Pt with recent hospital admission after ground level fall with C6-C7 fx. Pt POD 07/12/2021 C5-C7 lami. transfer to [facility] 07/14 Reason for Hospital Admission: numbess/tingling L index finger Relevant Past Medical History: osteoporosis, DEMETRA, arthritis of knees, hypothyroidism, osteopenia, IBS, sciatica Response to Therapy Interventions: Good participation in activities, Low activity tolerance, Requires additional time to complete activities Occupational Therapy Problem List: Cognitive Deficit;Impaired Self Care;Safety Deficits;Decreased Activity Tolerance;Decreased Range Of Motion;Functional Mobility Impairment;Balance Impaired;Decreased Strength Cognition/Communicatio n Deficits Responsiveness: Alert, Awake Follows Commands: 2-step Commands, Cueing Needed Cueing to Follow Commands: Minimum Treatment Interventions: Education;Self Care / Home Management;Energy Conservation Training;Strengthening ;Functional Mobility Training;Balance Training;Cognitive Training Home Environment Patient Lives With: Spouse Assistance Available: 24 Hour Entry To Home: With Rail;Stairs Number Of Stairs Into Home: 2 Number Of Stairs To Bed/Bath: 0 Tub/Shower Type: tub with extended tub bench Laundry: Basement, will complete Equipment Owned: Wheeled Walker;Extended tub bench Prior Functional Level: Within Functional Limits Prior Functional Level Comments: SALES SUPPORT ASSISTANT, patient IND with ADLs and ambulated without AD Patient Report: Pt pleasant and agreeable to therapy CURRENT FUNCTIONAL STATUS: Most recent performance Current Activities of Daily Living Assist Level Additional Information Feeding Set Up Grooming Contact Guard Assistance standing at sink Bathing Upper Body Moderate Assistance Bathing Lower Body Maximal Assistance Dressing Upper Body Moderate Assistance Dressing Lower Body Minimal Assistance figure four, cueing to maintain precautions, extended time, some assist Toileting Maximal Assistance Instrumental Activities of Daily Living Assist Level Additional Information Meal/Beverage Prep Cleaning Laundry Medication Management with Strategies Functional Mobility Assist Level Additional Information Rolling Moderate Assistance Supine to Sit Moderate Assistance Sit to Supine Scooting Minimal Assistance Sit to Stand Minimal Assistance Stand to Sit Minimal Assistance Bed to Chair Moderate Assistance Stepping (hand held) Toilet/Commode Shower Functional Mobility Contact Guard Assistance Wheeled Walker Blank hill indicate activity not attempted Ba (more content not included)... Normal [facility] THERAPY NT HNO ID: [id number] Author: Germania Castro CCC-IRWIN Service: Speech/Swallow Author Type: Speech Language Pathologist Type: Therapy (PT/OT/Speech/Resp) Filed: 07/15/2021 10:45 AM Note Text: SPEECH THERAPY MISSED VISIT SERVICE DATE: 07/15/2021 SERVICE TIME: 1044 to 1044 ROOM: [place] [address] Patient not seen due to Another service at bedside. SIGNATURE: LUCERO RoachSALES ASSISTANT PATIENT NAME: Fiona Gruber DATE: July 15, 2021 TIME: 10:45 AM Normal [facility] Basic metabolic 2000 panelon 07-14-2021 Anion gap [Moles/Vol] 8 mmol/L Low 9-18 [facility] Comment on above: Order Comment: Speci men Type: BLOOD SPECIMENOrdering Facility: [facility] Address: [address] [place] [phone] Performed By: #### 2 6506-2, , 2776-04 ####[facility] LABORATORYCLIA [id number] [place] [address] [place] [facility] Calcium [Mass/Vol] 8.3 mg/dL Low 8.5-10.2 [facility] Comment on above: Order Comment: Speci men Type: BLOOD SPECIMENOrdering Facility: [facility] Address: [address] [place] [address] Performed By: #### 2 4321-2, , 2776-04 ####[facility]ATORYCLIA [id number] [place] [address] [place] Chloride [Moles/Vol] 108 mmol/L High 97-105 [facility] Comment on above: Order Comment: Speci men Type: BLOOD SPECIMENOrdering Facility: [facility] Address: [address] [place] [address] Performed By: #### 2 432-2, , 2776-04 ####[facility]ORATORYCLIA [id number] [address] [place] CO2 [Moles/Vol] 23 mmol/L Normal 22-30 [facility] Comment on above: Order Comment: Speci men Type: BLOOD SPECIMENOrdering Facility: [facility] Address: [address] [place] [address] Performed By: #### 2 1-2, , 2776-04 ####[facility]ATORYCLIA [id number] [address] [place] Creatinine [Mass/Vol] 0.47 mg/dL Low 0.58-0.96 [facility] Comment on above: Order Comment: Speci men Type: BLOOD SPECIMENOrdering Facility: [facility] Address: [address] [place] [address] Performed By: #### 2 4321-2, , 2776-04 ####[facility]ORATORYCLIA [id number] [address] [place] ESTIMATED GLOMERULAR FILTRATION RATE 96 mL/min/1.73m??? Normal >=60 [facility] Comment on above: Order Comment: Steph whiting Type: BLOOD SPECIMENOrdering Facility: [facility] Address: [address] [place], [place] [address] Result Comment: Lawanda mated Glomerular Filtration Rate (eGFR) is calculated using the 2020 CKD-EPI creatinine equation. This equation utilizes serum creatinine, sex, and age as parameters. The creatinine assay has traceable calibration to isotope dilution-mass spectrometry. Refer to KDIGO guidelines for clinical interpretation. In patients with unstable renal function, e.g. those with acute kidney injury, the eGFR may not accurately reflect actual GFR. Performed By: #### 2 4321-2, , 2776-04 ####[facility]ATORYCLIA [id number] [place] [address] [place] Glucose [Mass/Vol] 88 mg/dL Normal 74-99 [facility] Comment on above: Order Comment: Steph whiting Type: BLOOD SPECIMENOrdering Facility: [facility] Address: [address] [place] [address] Result Comment: The [place] Diabetes Association (ADA) provides guidance for cutoff values for fasting glucose and random glucose. The ADA defines fasting as no caloric intake for at least 8 hours. Fasting plasma glucose results between 100 to 125 mg/dL indicate increased risk for diabetes (prediabetes). Fasting plasma glucose results greater than or equal to 126 mg/dL meet the criteria for diagnosis of diabetes. In the absence of unequivocal hyperglycemia, results should be confirmed by repeat testing. In a patient with classic symptoms of hyperglycemia or hyperglycemic crisis, random plasma glucose results greater than or equal to 200 mg/dL meet the criteria for diagnosis of diabetes. Reference: Standards of Medical Care in Diabetes 2016, [place] Diabetes Association. Diabetes Care. 2016.39(Suppl 1). Performed By: #### 2 4321-2, , 2776-04 ####[facility]ATORYCLIA [id number] [place] [id number] [place] Potassium [Moles/Vol] 3.6 mmol/L Low 3.7-5.1 [facility] Comment on above: Order Comment: Speci men Type: BLOOD SPECIMENOrdering Facility: [facility] Address: [address] [place] [address] Performed By: #### 2 4321-2, , 2776-04 ####[facility]ORYCLIA [id number] [address] [place] Sodium [Moles/Vol] 139 mmol/L Normal 136-144 [facility] Comment on above: Order Comment: Speci men Type: BLOOD SPECIMENOrdering Facility: [facility] Address: [address] [place] [address] Performed By: #### 2 4321-2, , 2776-04 ####[facility]ORYCLIA [id number] [address] [place] Urea nitrogen [Mass/Vol] 8 mg/dL Normal 7-21 [facility] Comment on above: Order Comment: Speci men Type: BLOOD SPECIMENOrdering Facility: [facility] Address: [address] [place] [address] Performed By: #### 2 4321-2, , 2776-04 ####[facility]ORYCLIA [id number] [address] [place] CBC W Auto Differential pane l (Bld)on 07-14-2021 Basophils (Bld) [#/Vol] 0.03 10*3/uL Normal <0.11 [facility] Comment on above: Order Comment: Speci men Type: BLOOD SPECIMENOrdering Facility: [facility] Address: [address] [place] [address] Performed By: #### 9 4500-6 #### [facility] CLIA [id number] [address] Basophils/100 WBC (Bld) 0.3 % Normal [facility] Comment on above: Order Comment: Speci men Type: BLOOD SPECIMENOrdering Facility: [facility] Address: [address] [place] [address] Performed By: #### 9 4500-6 #### [facility] CLIA [id number] [address] Differential cell count method Nom (Bld) Auto Normal [facility] Comment on above: Order Comment: Speci men Type: BLOOD SPECIMENOrdering Facility: [facility] Address: [address] [place] [address] Performed By: #### 9 4500-6 #### [facility] CLIA [id number] [address] Eosinophils (Bld) [#/Vol] 10*3/uL Normal <0.46 [facility] Comment on above: Order Comment: Speci men Type: BLOOD SPECIMENOrdering Facility: [facility] Address: [address] [place] [address] Performed By: #### 9 4500-6 #### [facility] CLIA [id number] [address] Eosinophils/100 WBC (Bld) 0.1 % Normal [facility] Comment on above: Order Comment: Speci men Type: BLOOD SPECIMENOrdering Facility: [facility] Address: [address] [place] [address] Performed By: #### 9 4500-6 #### [facility] CLIA [id number] [address] Erythrocyte distribution width (RBC) [Ratio] 15.0 % Normal 11.5-15.0 [facility] Comment on above: Order Comment: Speci men Type: BLOOD SPECIMENOrdering Facility: [facility] Address: [address] [place] [address] Performed By: #### 9 4500-6 #### [facility] CLIA [id number] [address] Hematocrit (Bld) [Volume fraction] 32.8 % Low 36.0-46.0 [facility] Comment on above: Order Comment: Speci men Type: BLOOD SPECIMENOrdering Facility: [facility] Address: [address] [place] [address] Performed By: #### 9 4500-6 #### [facility] CLIA [id number] [address] Hemoglobin (Bld) [Mass/Vol] 10.6 g/dL Low 11.5-15.5 [facility] Comment on above: Order Comment: Speci men Type: BLOOD SPECIMENOrdering Facility: [facility] Address: [address] [place] [address] Performed By: #### 9 4500-6 #### [facility] CLIA [id number] [address] IMMATURE GRAN % 0.6 % Normal [facility] Comment on above: Order Comment: Speci men Type: BLOOD SPECIMENOrdering Facility: [facility] Address: [address] [place] [address] Performed By: #### 9 4500-6 #### [facility] CLIA [id number] [address] IMMATURE GRAN ABS 0.07 k/uL Normal <0.10 [facility] Comment on above: Order Comment: Speci men Type: BLOOD SPECIMENOrdering Facility: [facility] Address: [address] [place] [address] Performed By: #### 9 4500-6 #### [facility] CLIA [id number] [address] Lymphocytes (Bld) [#/Vol] 1.89 10*3/uL Normal 1.00-4.00 [facility] Comment on above: Order Comment: Speci men Type: BLOOD SPECIMENOrdering Facility: [facility] Address: [address] [place] [address] Performed By: #### 9 4500-6 #### [facility] CLIA [id number] [address] Lymphocytes/100 WBC (Bld) 16.4 % Normal [facility] Comment on above: Order Comment: Speci men Type: BLOOD SPECIMENOrdering Facility: [facility] Address: [address] [place] [address] Performed By: #### 9 4500-6 #### [facility] CLIA [id number] [address] MCH (RBC) [Entitic mass] 28.7 pg Normal 26.0-34.0 [facility] Comment on above: Order Comment: Speci men Type: BLOOD SPECIMENOrdering Facility: [facility] Address: [address] [place] [address] Performed By: #### 9 4500-6 #### [facility] CLIA [id number] [address] MCHC (RBC) [Mass/Vol] 32.3 g/dL Normal 30.5-36.0 [facility] Comment on above: Order Comment: Speci men Type: BLOOD SPECIMENOrdering Facility: [facility] Address: [address] [place] [address] Performed By: #### 9 4500-6 #### [facility] CLIA [id number] [address] MCV (RBC) [Entitic vol] 88.9 fL Normal 80.0-100.0 [facility] Comment on above: Order Comment: Speci men Type: BLOOD SPECIMENOrdering Facility: [facility] Address: [address] [place] [address] Performed By: #### 9 4500-6 #### [facility] CLIA [id number] [address] Monocytes (Bld) [#/Vol] 1.22 10*3/uL High <0.87 [facility] Comment on above: Order Comment: Speci men Type: BLOOD SPECIMENOrdering Facility: [facility] Address: [address] [place] [address] Performed By: #### 9 4500-6 #### [facility] CLIA [id number] [address] [place] Monocytes/100 WBC (Bld) 10.6 % Normal A [facility] Comment on above: Order Comment: Speci men Type: BLOOD SPECIMENOrdering Facility: [facility] Address: [address] [place] [address] Performed By: #### 9 4500-6 #### [facility] CLIA [id number] [address] [place] Neutrophils (Bld) [#/Vol] 8.27 10*3/uL High 1.45-7.50 [facility] Comment on above: Order Comment: Speci men Type: BLOOD SPECIMENOrdering Facility: [facility] Address: [address] [place] [address] Performed By: #### 9 4500-6 #### [facility] CLIA [id number] [address] Neutrophils/100 WBC (Bld) 72.0 % Normal [facility] Comment on above: Order Comment: Speci men Type: BLOOD SPECIMENOrdering Facility: [facility] Address: [address] [place] [address] Performed By: #### 9 4500-6 #### [facility] CLIA [id number] [address] [place] Nucleated RBC (Bld) [#/Vol] 10*3/uL Normal <0.01 [facility] Comment on above: Order Comment: Speci men Type: BLOOD SPECIMENOrdering Facility: [facility] Address: [address] [place] [address] Performed By: #### 9 4500-6 #### [facility] CLIA [id number] [address] Nucleated RBC/100 WBC (Bld) [Ratio] 0.0 /100 WBC Normal [facility] Comment on above: Order Comment: Speci men Type: BLOOD SPECIMENOrdering Facility: [facility] Address: [address] Performed By: #### 9 4500-6 #### [facility] CLIA [id number] [address] Platelet mean volume (Bld) [Entitic vol] 10.7 fL Normal 9.0-12.7 [facility] Comment on above: Order Comment: Speci men Type: BLOOD SPECIMENOrdering Facility: [facility] Address: [address] Performed By: #### 9 4500-6 #### [facility] CLIA [id number] [address] OF [facility] Platelets (Bld) [#/Vol] 243 10*3/uL Normal 150-400 [facility] Comment on above: Order Comment: Speci men Type: BLOOD SPECIMENOrdering Facility: [facility] Address: [address] [place] [address] Performed By: #### 9 4500-6 #### [facility] CLIA [id number] [address] [place] RBC (Bld) [#/Vol] 3.69 10*6/uL Low 3.90-5.20 [facility] Comment on above: Order Comment: Speci men Type: BLOOD SPECIMENOrdering Facility: [facility] Address: [address] Performed By: #### 9 4500-6 #### [facility] CLIA [id number] [address] [place] WBC (Bld) [#/Vol] 11.49 10*3/uL High 3.70-11.00 [facility] Comment on above: Order Comment: Speci men Type: BLOOD SPECIMENOrdering Facility: [facility] Address: [address] [place] [address] Performed By: #### 9 4500-6 #### [facility] CLIA [id number] [address] [place] Magnesium SerPl-mCncon 07-14 Magnesium [Mass/Vol] 1.8 mg/dL Normal 1.7-2.3 [facility] Comment on above: Order Comment: Speci men Type: BLOOD SPECIMENOrdering Facility: [facility] Address: [address] [place] [id number] Performed By: #### 2 4321-2, 71465-0, 2777-1 ####[facility]ORYCLIA [id number] [address] NUTRITIONon 07-14-2021 NUTRITION HNO ID: [id number] Author: Alyse aMnning RD Service: Nutrition Therapy Author Type: Registered Dietitian Type: Nutrition Filed: 07/14/2021 2:12 PM Note Text: NUTRITION THERAPY INITIAL ASSESSMENT Supervising therapist was present and guided the care of the patient for the entire session on this date. All documentation was reviewed and agreed upon. Alyse Manning MS RD SERVICE DATE: 07/14/2021 SERVICE TIME: 1020 REASON FOR VISIT: LOS Nutrition Assessment: Recommended Malnutrition Diagnosis: No Malnutrition Identified Nutrition Diagnosis: Problem: Increased nutrient needs Related to: Suboptimal protein/energy intake As evidenced by: Medical condition;Procedure/infante rgery;Patient/family self-report;Intake records Estimated kilocalorie needs: 4311-6209 Calorie Calculation Method: 25-30 kcals/kg Estimated protein needs (grams): 52-78 Grams protein determined by: 1.0 - 1.5 g/kg Care Plan: Continue current diet Supplements: Boost Glucose Control;Boost [facility] Pt reported usual wt of 116#. Also reported appetite and PO intake improving since surgery on 07/12. Discussed adding sups to trays for extra energy/protein intake, pt agreed. Monitor and Evaluation: Meet greater than 75% of estimated needs;Monitor bowel function;Monitor fluid/electrolyte balance;Monitor labs, I/Os, vital signs, weight HPI: Pt previously admitted from 06/20-06/23 subsequent to fall. Sustained L C6 and L C7 facet fractures, as well as L C7 transverse and C6 irregularity. Pt was admitted to [facility] on 07/07 experiencing L triceps weakness and worsening stability at C6/C7. Had surgery on 07/12. On a regular diet, PO intake is improving. Medications and labs reviewed, no edema and GI wnl. Past med hx includes, DEMETRA, diverticulosis, essential tremor, hypercalcemia, hypothyroidism, osteopenia, vitamin B deficiency, and Vitamin D deficiency. Intake History: Nutrition Intake Prior to Admission: Greater than 75% estimated energy needs greater than or equal to 3 months Current Intake: Less than 75% estimated energy needs Over: 2 days (due to surgery on 07/12. Pt reports appetite and intake is improving) Diet Orders (From admission, onward) Start Ordered 07/14/21 1045 DIET SUPPLEMENTS START NOW Question Answer Comment Supplement 1 BOOST [facility] STRAWBERRY Supplement 1 Frequency 3. LUNCH Supplement 2 BOOST GLUCOSE CONTROL CHOCOLATE Supplement 2 Frequency 5. DINNER 07/14/21 1035 07/12/215 DIET REGULAR START NOW 07/12/212133 Anthropometrics: Height: 162.2 cm (5' 3.86) Weight: 52.6 kg (115 lb 15.4 oz) Dosing Weight: 52.2 kg (115 lb) Usual Weight: 52.6 kg (116 lb) Usual Weight Obtained From: Patient Body mass index is 19.99 kg/m?. 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 PATIENT NAME: Fiona Gruber DATE: July 14, 2021 TIME: 11:06 AM 1074 Normal [facility] Phosphate SerPl-mCncon 07-14 Phosphate [Mass/Vol] 2.1 mg/dL Low 2.7-4.8 [facility] Comment on above: Order Comment: Speci men Type: BLOOD SPECIMENOrdering Facility: [facility] Address: [address] [place] [phone] Performed By: #### 2 4204-6, 65894-9, 2777-1 ####[facility]ORYCLIA [id number] [address] OF [facility] ALLIED HEALTHon 07-13-2021 ALLIED HEALTH HNO ID: [id number] Author: RT Jelena(R) Service: Radiology Author Type: Technologist Type: Allied Health Filed: 07/13/2021 9:48 AM Note Text: Radiology Service Progress Note PATIENT NAME: Fiona Gruber DATE OF SERVICE: July 13, 2021 TIME: 9:48 AM PATIENT IDENTITY VERIFICATION COMPLETED USING TWO (2) IDENTIFIERS: Name and Date of confirmed by patient verbally and Name and Date of confirmed by identification band. FALL SCREENING: Has the patient had 2 falls in the last year or 1 fall with injury or currently using an Ambulatory Assistive Device (Walker, Cane, Wheelchair, Crutches, etc.)? Inpatient: Screened on floor PATIENT GENDER DATA: Female. status: : No status: NO. PATIENT RELEVANT IMPLANT DATA REVIEWED: Not Applicable RADIOLOGY DEPARTMENT: General X-ray: Exam(s) Completed: Spine X-Ray(s): Cervical AP / LAT PERIPHERAL IV DATA: Not applicable SIGNED BY: RT Quynh(R) July 13, 2021 9:48 AM Normal [facility] ANES POSTPROC EVALon 022 ANES POSTPROC EVAL HNO ID: [id number] Author: Kenan Rubio MD Service: ? Author Type: Physician Type: Anesthesia Postprocedure Evaluation Filed: 07/13/2021 11:11 AM Note Text: POST ANESTHESIA EVALUATION NOTE : 1940 Procedure Summary Date: 07/12/21 Room / Location: OR OR 26 / [place] OR Anesthesia Start: 1243 Anesthesia Stop: 1647 Procedures: Cervical 4-Thoracic 2 posterior instrumented fusion, Cervical 5-7 laminectomy decompression (Bilateral Neck) ARTHRODESIS CERVICAL BELOW C2, 2ND CERVICAL LEVEL (N/A Neck) ARTHRODESIS CERVICAL BELOW C2, 3RD CERVICAL LEVEL (Bilateral Neck) ARTHRODESIS CERVICAL BELOW C2, 4TH CERVICAL LEVEL (N/A Neck) DECOMPRESSION LAMINECTOMY CERVICAL, FACETECTOMY AND FORAMINOTOMY, SINGLE VERT SEGMENT LEVEL 2 (N/A Neck) DECOMPRESSION LAMINECTOMY 2ND ADD?L CERVICAL SEGMENT (N/A Neck) DECOMPRESSION LAMINECTOMY 3RD ADD?L CERVICAL SEGMENT (N/A Neck) INSERT SPINE FIXATION DEVICE (N/A Neck) AUTOGRAFT FOR SPINE SURGERY ONLY, OBTAINED FROM SAME INCISION (N/A Back) DECOMPRESSION LAMINECTOMY 1ST ADD?L CERVICAL SEGMENT (N/A Neck) Diagnosis: Closed traumatic nondisplaced fracture of sixth cervical vertebra with delayed healing (Closed traumatic nondisplaced fracture of sixth cervical vertebra with delayed healing [S12.501G]) Surgeons: Sahra Amador MD Responsible Provider: Kenan Rubio MD Anesthesia Type: general ASA Status: 3 Anesthesia Type: general Airway Type: ETT Last Vitals Vitals Value Taken Time BP 138/66 07/13/21 1100 Temp 36.2 ?C (97.2 ?F) 07/13/21 0715 Pulse 86 07/13/21 1110 Resp 23 07/13/21 1110 SpO2 100 % 07/13/21 1109 Vitals shown include unvalidated device data. Post Anesthesia Patient Status Patient Evaluation: PACU. PACU/ICU Patient Condition: stable. Anticipated Disposition: inpatient floor planned admission. Neurological Status: aware and responsive. Pulmonary Status: breathing comfortably on room air Airway Control: returned to baseline unsupported. Cardiovascular Status: stable. Pain Management: clinically adequate Postoperative Hydration: acceptable. Intraoperative Events: no significant anesthesia events Post Operative Nausea/Vomiting Status: no significant post operative nausea or vomiting Anesthetic Observations: Recommendation: continue current plan of care. Anesthesia Observations No Documentation SIGNATURE: Kenan Rubio MD PATIENT NAME: Fiona Gruber DATE: July 13, 2021 TIME: 11:11 AM CSN: [id number] Normal [facility] Basic metabolic 2000 panelon 07-13-2021 Anion gap [Moles/Vol] 10 mmol/L Normal 9-18 [facility] Comment on above: Order Comment: Speci men Type: BLOOD SPECIMENOrdering Facility: [facility] Address: [address] [place] [id number] Performed By: #### 1 9123-9, 2777-1, 16048-2 ####[facility] LABORATORYCLIA [id number] [address] OF [facility] Calcium [Mass/Vol] 8.6 mg/dL Normal 8.5-10.2 [facility] Comment on above: Order Comment: Speci men Type: BLOOD SPECIMENOrdering Facility: [facility] Address: [address] [place] [address] Performed By: #### 1 9123-9, 2777-1, 15917-8 ####[facility] LABORATORYCLIA [id number] [place] [address] [place] Chloride [Moles/Vol] 104 mmol/L Normal 97-105 [facility] Comment on above: Order Comment: Speci men Type: BLOOD SPECIMENOrdering Facility: [facility] Address: [address] [place] [address] Performed By: #### 1 9123-9, 2777, 80933-8 ####[facility] LABORATORYCLIA [id number] [address] STATES OF [facility] CO2 [Moles/Vol] 20 mmol/L Low 22-30 [facility] Comment on above: Order Comment: Speci men Type: BLOOD SPECIMENOrdering Facility: [facility] Address: [address] [place] [address] Performed By: #### 1 9123-9, 2777, 49226-0 ####[facility] LABORATORYCLIA [id number] [address] [place] Creatinine [Mass/Vol] 0.59 mg/dL Normal 0.58-0.96 [facility] Comment on above: Order Comment: Speci men Type: BLOOD SPECIMENOrdering Facility: [facility] Address: [address] [place] [address] Performed By: #### 1 9123-9, 2777, 63561-6 ####[facility] LABORATORYCLIA [id number] [address] OF [place] ESTIMATED GLOMERULAR FILTRATION RATE 91 mL/min/1.73m??? Normal >=60 [facility] Comment on above: Order Comment: Speci men Type: BLOOD SPECIMENOrdering Facility: [facility] Address: [address] [id number] Result Comment: Lawanda mated Glomerular Filtration Rate (eGFR) is calculated using the 2020 CKD-EPI creatinine equation. This equation utilizes serum creatinine, sex, and age as parameters. The creatinine assay has traceable calibration to isotope dilution-mass spectrometry. Refer to KDIGO guidelines for clinical interpretation. In patients with unstable renal function, e.g. those with acute kidney injury, the eGFR may not accurately reflect actual GFR. Performed By: #### 1 9123-9, 2777-1, 76420-3 ####[facility] LABORATORYCLIA [id number] [place] [address] [place] Glucose [Mass/Vol] 144 mg/dL High 74-99 [facility] Comment on above: Order Comment: Steph whiting Type: BLOOD SPECIMENOrdering Facility: [facility] Address: [address] Result Comment: The [place] Diabetes Association (ADA) provides guidance for cutoff values for fasting glucose and random glucose. The ADA defines fasting as no caloric intake for at least 8 hours. Fasting plasma glucose results between 100 to 125 mg/dL indicate increased risk for diabetes (prediabetes). Fasting plasma glucose results greater than or equal to 126 mg/dL meet the criteria for diagnosis of diabetes. In the absence of unequivocal hyperglycemia, results should be confirmed by repeat testing. In a patient with classic symptoms of hyperglycemia or hyperglycemic crisis, random plasma glucose results greater than or equal to 200 mg/dL meet the criteria for diagnosis of diabetes. Reference: Standards of Medical Care in Diabetes 2016, [place] [employer] Association. Diabetes Care. 2016.39(Suppl 1). Performed By: #### 1 9123-9, 2777-1, 89608-1 ####[facility] LABORATORYCLIA [id number] [place] [address] [place] Potassium [Moles/Vol] 4.2 mmol/L Normal 3.7-5.1 [facility] Comment on above: Order Comment: Steph whiting Type: BLOOD SPECIMENOrdering Facility: [facility] Address: [address] [phone] Performed By: #### 1 9123-9, 2777-1, 71698-4 ####[facility]ATORYCLIA [id number] [address] Sodium [Moles/Vol] 134 mmol/L Low 136-144 [facility] Comment on above: Order Comment: Speci men Type: BLOOD SPECIMENOrdering Facility: [facility] Address: [address] [place] [address] Performed By: #### 1 9123-9, 2777-, 84628-6 ####[facility]ATORYCLIA [id number] [address] [place] Urea nitrogen [Mass/Vol] 11 mg/dL Normal 7-21 [facility] Comment on above: Order Comment: Speci men Type: BLOOD SPECIMENOrdering Facility: [facility] Address: [address] [place] [address] Performed By: #### 1 9123-9, 2777, 85608-7 ####[facility]ATORYCLIA [id number] [address] [place] CBC panel Auto (Bld)on 07-13 Erythrocyte distribution width (RBC) [Ratio] 14.9 % Normal 11.5-15.0 [facility] Comment on above: Order Comment: Speci men Type: BLOOD SPECIMENOrdering Facility: [facility] Address: [address] [place] [address] Performed By: #### 5 8410-2 ####[facility]ATORYCLIA [id number] [address] Hematocrit (Bld) [Volume fraction] 35.6 % Low 36.0-46.0 [facility] Comment on above: Order Comment: Speci men Type: BLOOD SPECIMENOrdering Facility: [facility] Address: [address] [place] [address] Performed By: #### 5 8410-2 ####[facility]ATORYCLIA [id number] [address] Hemoglobin (Bld) [Mass/Vol] 11.5 g/dL Normal 11.5-15.5 [facility] Comment on above: Order Comment: Speci men Type: BLOOD SPECIMENOrdering Facility: [facility] Address: [address] [place] [address] Performed By: #### 5 8410-2 ####[facility]ATORYCLIA [id number] [address] MCH (RBC) [Entitic mass] 28.4 pg Normal 26.0-34.0 [facility] Comment on above: Order Comment: Speci men Type: BLOOD SPECIMENOrdering Facility: [facility] Address: [address] [place] [address] Performed By: #### 5 8410-2 ####[facility]ORYCLIA [id number] [address] MCHC (RBC) [Mass/Vol] 32.3 g/dL Normal 30.5-36.0 [facility] Comment on above: Order Comment: Speci men Type: BLOOD SPECIMENOrdering Facility: [facility] Address: [address] [place] [address] Performed By: #### 5 8410-2 ####[facility]ORYCLIA [id number] [address] MCV (RBC) [Entitic vol] 87.9 fL Normal 80.0-100.0 [facility] Comment on above: Order Comment: Speci men Type: BLOOD SPECIMENOrdering Facility: [facility] Address: [address] [place] [address] Performed By: #### 5 8410-2 ####[facility]ATORYCLIA [id number] [address] Nucleated RBC (Bld) [#/Vol] 10*3/uL Normal <0.01 [facility] Comment on above: Order Comment: Speci men Type: BLOOD SPECIMENOrdering Facility: [facility] Address: [address] Performed By: #### 5 8410-2 ####[facility]ATORYCLIA [id number] [address] Platelet mean volume (Bld) [Entitic vol] 11.1 fL Normal 9.0-12.7 [facility] Comment on above: Order Comment: Speci men Type: BLOOD SPECIMENOrdering Facility: [facility] Address: [address] [place] [address] Performed By: #### 5 8410-2 ####[facility]ATORYCLIA [id number] [address] Platelets (Bld) [#/Vol] 274 10*3/uL Normal 150-400 [facility] Comment on above: Order Comment: Speci men Type: BLOOD SPECIMENOrdering Facility: [facility] Address: [address] [place] [address] Performed By: #### 5 8410-2 ####[facility]ORYCLIA [id number] [address] RBC (Bld) [#/Vol] 4.05 10*6/uL Normal 3.90-5.20 [facility] Comment on above: Order Comment: Speci men Type: BLOOD SPECIMENOrdering Facility: [facility] Address: [address] [place] [address] Performed By: #### 5 8410-2 ####[facility]ATORYCLIA [id number] [address] [place] WBC (Bld) [#/Vol] 13.61 10*3/uL High 3.70-11.00 [facility] Comment on above: Order Comment: Speci men Type: BLOOD SPECIMENOrdering Facility: [facility] Address: [address] [place] [address] Performed By: #### 5 8410-2 ####[facility]ATORYCLIA [id number] [address] Magnesium SerPl-mCncon 07-13 Magnesium [Mass/Vol] 1.7 mg/dL Normal 1.7-2.3 [facility] Comment on above: Order Comment: Steph whiting Type: BLOOD SPECIMENOrdering Facility: [facility] Address: [address] [place] [address] Performed By: #### 1 9123-9, 2777-1, 13876-1 ####[facility]ATORYCLIA [id number] [address] OF [facility] PT panel Coag (PPP)on 2021 INR Coag (PPP) [Relative time] {INR} Low 0.9-1.3 [facility] Comment on above: Order Comment: Steph whiting Type: BLOOD SPECIMENOrdering Facility: [facility] Address: [address] [place] [address] Result Comment: Naldo min K Antagonist (VKA) Therapeutic Range: INR 2 to 3 (Target INR of 2.5) Note: For patients treated with VKA drugs, such as warfarin, the [place] [employer] 2012 Guideline recommends a therapeutic INR range of 2 to 3 (target INR of 2.5). This recommendation includes high-risk patients with antiphospholipid syndrome with previous arterial or venous thromboembolism, current-generation mechanical or bioprosthetic aortic heart valve replacement. Note: Patients with mechanical aortic valve replacement and additional risk factors for thromboembolic events (atrial fibrillation, previous thromboembolism, LV dysfunction, hypercoagulable conditions) or an older generation mechanical AVR (i.e., ball in-Cage) or any mechanical MVR should have a INR therapeutic range of 2.5 to 3.5 (target INR of 3). Kai GH, et al. Chest 2012, 141:7S-47S Gus RA, et al. JAC 2017, 70: 252-289 Performed By: #### 3 4528-0, 39059-1 ####[facility]ATORYCLIA [id number] [address] [place] PT Coag (PPP) [Time] 10.3 s Normal 9.7-13.0 [facility] Comment on above: Order Comment: Speci men Type: BLOOD SPECIMENOrdering Facility: [facility] Address: [address] [place] [address] Performed By: #### 3 4528-0, 55595-0 ####[facility]ATORYCLIA [id number] [address] OF [facility] Phosphate SerPl-mCncon 07-13 Phosphate [Mass/Vol] 2.9 mg/dL Normal 2.7-4.8 [facility] Comment on above: Order Comment: Speci men Type: BLOOD SPECIMENOrdering Facility: [facility] Address: [address] [place] [address] Performed By: #### 1 9123-9, 2777-1, 86744-4 ####[facility]ORYCLIA [id number] [address] OF [facility] THERAPY NTon 07-13-2021 THERAPY NT HNO ID: [id number] Author: Kelton Baron, PT Service: Physical Therapy Author Type: Physical Therapist Type: Therapy (PT/OT/Speech/Resp) Filed: 07/13/2021 1:58 PM Note Text: Physical Therapy Evaluation SERVICE DATE: 07/13/2021 SERVICE TIME: 0830 to 0845 ROOM: [place] [address] Recommended Discharge Disposition: Subacute/SNF Recommended Discharge Disposition Comments: Patient previously IND and is now functioning below baseline this date. Patient would benefit from discharge to SNF to maximize functional mobility, progress overall strength and improve activity tolerance to progress toward PLOF Recommended Discharge Disposition Due to: Patient requires daily, facility-based rehabilitation from at least one discipline due to:;ADL impairment resulting in caregiver dependence;decline in functional status requiring daily skilled care PT 6 Clicks Score: 12 Patient previously IND and is now completing functional mobility with moderate assistance x2 with unsteady gait noted. Patient would greatly benefit from discharge to SNF to maximize functional mobility, overall strength and to progress activity tolerance to progress toward PLOF. Precautions/Activity Restrictions: Fall Risk;Spine Precaution/Activity Restriction Comments: C-Collar at all times Current Hospital Course: 81 y/o female presented to hospital on 07/07/2021 for increased numbness and tingling in L hand. Pt with recent hospital admission after ground level fall with C6-C7 fx. Pt POD 07/12/2021 C5-C7 lami Reason for Hospital Admission: numbess/tingling L index finger Relevant Past Medical History: osteoporosis, DEMETRA, arthritis of knees, hypothyroidism, osteopenia, IBS, sciatica Response to Therapy Interventions: Good participation in activities, Pain, Needs frequent redirection or re-instruction Continue skilled needs due to: Functional mobility/skill impairments, Safety concerns Physical Therapy Problem List: Cognitive Deficit;Pain;Safety Deficits;Impaired Self Care;Decreased Activity Tolerance;Decreased Strength;Functional Mobility Impairment;Balance Impaired Treatment Interventions: Education;Self Care / Home Management;Energy Conservation Training;Strengthening ;Functional Mobility Training;Balance Training;Neuromuscular Re-education;Pain Management Home Environment Patient Lives With: Spouse Assistance Available: 24 Hour Entry To Home: With Rail;Stairs Number Of Stairs Into Home: 2 Number Of Stairs To Bed/Bath: 0 Tub/Shower Type: tub with extended tub bench Laundry: Basement, will complete Equipment Owned: Wheeled Walker;Extended tub bench Prior Functional Level: Within Functional Limits 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 Current Functional Mobility Assist Level Additional Information Rolling Supine to Sit Moderate Assistance Patient requires moderate tactile/verbal cueing for sequencing with assist at upper extremities for guiding to bed rail and at trunk for elevation Sit to Supine Scooting Sit to Stand Moderate Assistance (x2) Cues for hand placement, increased trunk flexion noted and increased time for steadying in standing Stand to Sit Moderate Assistance (x2) Cues for reaching back with limited carryover Bed to Chair Moderate Assistance (x2) Bed To Chair Transfer Type: Stepping Bed To Chair Transfer Equipment: Gait Belt Moderate cues for sequencing with assist for stability Toilet/Commode Gait Moderate Assistance (x2) Gait Device: None Gait Distance (feet): x4 side steps to the chair Short, shuffling steps noted with hand held assist due to poor stability demo'd throughout Stairs Curb Step Car Transfer Blank hill indicate activity not attempted General Deviations/Observation s: Arm swing decreased;Amirah decreased;Difficulty changing direction/turning;Flex ed trunk posture;Lateral sway increased;Loss of Balance;Narrow Base of Support;Shuffling Gait;Step length decreased;Trunk Control Decreased Range of Motion: WFL Except (within spinal precautions) Strength: Strength Limitation Comments Strength Limitation Comments: Patient demo's good quad control bilaterally. General lower extremity weakness, at least 3/5 Balance: Static Sitting;Static Standing Static Sitting Balance: Good Patient able to maintain balance without handhold support, limited postural sway Static Standing Balance: Poor Patient requires handhold support and moderate to maximal assistance to maintain position -HLM: 4: Move to chair / commode Learning/Educational Needs: Discharge Plan;Functional Activities/Mobility;Pa in Management;Plan of Care;Precautions Goals for Plan of Care: Patient (more content not included)... 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 Pt requiring increased assist with all tasks at this date due to increased pain, weakness, and decreased safety awareness. Would benefit from SNF once medically stable to assist with returning to OF and maximizing independence. Recommended Discharge Disposition Due to: Patient requires daily, facility-based rehabilitation from at least one discipline due to:;ADL impairment resulting in caregiver dependence;decline in functional status requiring daily skilled care;new / worsened cognitive deficits related to current diagnosis;ongoing intervention of multiple therapy disciplines OT 6 Clicks Score: 14 Precautions/Activity Restrictions: Fall Risk;Spine Precaution/Activity Restriction Comments: C-Collar at all times Current Hospital Course: 81 y/o female presented to hospital on 07/07/2021 for increased numbness and tingling in L hand. Pt with recent hospital admission after ground level fall with C6-C7 fx. Pt POD 07/12/2021 C5-C7 lami Reason for Hospital Admission: numbess/tingling L index finger Relevant Past Medical History: osteoporosis, DEMETRA, arthritis of knees, hypothyroidism, osteopenia, IBS, sciatica Response to Therapy Interventions: Good participation in activities, Low activity tolerance, Needs frequent redirection or re-instruction Continue skilled needs due to: Safety concerns, Functional impairment, Cognitive deficits Occupational Therapy Problem List: Cognitive Deficit;Impaired Self Care;Safety Deficits;Decreased Activity Tolerance;Decreased Range Of Motion;Functional Mobility Impairment;Balance Impaired;Decreased Strength Cognition/Communicatio n Deficits Orientation Deficits: Not oriented to Time (day of week and month) Responsiveness: Awake, Alert Follows Commands: 1-step Commands, Cueing Needed Cueing to Follow Commands: Moderate Attention Deficits: Divided, Distractible Memory Deficits: Short Term Executive Function Deficits: Sequencing, Judgement, Problem Solving, Motor Planning, Safety Awareness Sequencing Deficit: Moderate impairment Judgement Deficit: Moderate impairment Problem Solving Deficit: Moderate impairment Motor Planning Deficit: Moderate impairment Safety Awareness Deficit: Moderate impairment Cognitive Clinical Tests and Screens: 4AT Screening 4AT Screening Assess alertness (ask patient to state their name and address): Normal (fully alert, but not agitated, throughout assessment) Ask patient: age, date of , current year, and current location: 1 mistake Ask patient to tell me the months of the year backwards order, starting with March: Starts but states <7 months / refuses to start Acute change or fluctuating mental status: Yes 4AT Score: (!) 6 Name of LIP Notified of New Positive 4AT Score: Nursing aware Delirium Positive/Negative: Positive Treatment Interventions: Education;Self Care / Home Management;Energy Conservation Training;Strengthening ;Functional Mobility Training;Balance Training;Cognitive Training Home Environment Patient Lives With: Spouse Assistance Available: 24 Hour Entry To Home: With Rail;Stairs Number Of Stairs To Bed/Bath: 0 Tub/Shower Type: tub with extended tub bench Laundry: Basement, will complete Equipment Owned: Wheeled Walker;Extended tub bench Prior Functional Level: Within Functional Limits Prior Functional Level Comments: Prior to admission, patient was independent with ADLs and ambulated without device Patient Report: Pt pleasant and agreeable to OT evaluation CURRENT FUNCTIONAL STATUS: Most recent performance Current Activities of Daily Living Assist Level Additional Information Feeding Set Up Grooming Minimal Assistance Bathing Upper Body Moderate Assistance Bathing Lower Body Maximal Assistance Dressing Upper Body Moderate Assistance Dressing Lower Body Maximal Assistance Toileting Maximal Assistance Instrumental Activities of Daily Living Assist Level Additional Information Meal/Beverage Prep Cleaning Laundry Medication Management with Strategies Functional Mobility Assist Level Additional Information Rolling Moderate Assistance Proper technique provided on log roll technique to maximize safety with transfer. Required CHIGNIK LAGOON assist with correct hand placement and cueing for sequencing of steps. Supine to Sit Moderate Assistance assist at trunk to achieve upright position. Sit to Supine Scooting Minimal Assistan (more content not included)... Normal [facility] XR CERVICAL 2V AP/LATon - XR CERVICAL 2V AP/LAT * * *Final Report* * * DATE OF EXAM: Jul 13 2021 9:49AM AKX [id number] - XR CERVICAL 2V AP/LAT / PROCEDURE REASON: Post-operative / post-procedure assessment, symptomatic * * * * Physician Interpretation * * * * EXAM TITLE: X-RAY CERVICAL SPINE DATE: July 13, 2021 CLINICAL INDICATION/HISTORY: Fracture, postoperative assessment COMPARISON: CT cervical spine July 10, 2021 TECHNIQUE: AP and lateral views of the cervical spine are presented. Images were performed in the upright position with the patient in c-collar. FINDINGS: There are bilateral pedicle screws at C4 and C5, a right pedicle screw at C6 and bilateral pedicle screws at T1 and T2. There is a vertical rodding between the pedicle screws and laminectomies at C4-C7. No spondylolisthesis. The fractures of the C6 and C7 facets are not visible on this study. Severe degenerative disc space narrowing at C5-C6 and C6-C7. No lytic or blastic osseous lesions. No prevertebral soft tissue swelling. Skin edin along the midline of the neck. IMPRESSION: Status post posterior fusion C4-T2 and laminectomy changes at C4-C7. Fractures of C6 and C7 are not well-seen on this study. . Neonatologist: PSCB Transcribe Date/Time: Jul 13 2021 10:08A Dictated by : BRICE RODRIGUEZ MD This examination was interpreted and the report reviewed and electronically signed by: BRICE RODRIGUEZ MD on Jul 13 2021 10:12AM EST [id number] Normal [facility] aPTT PPPon 07-13-2021 aPTT Coag (PPP) [Time] 24.5 s Normal 23.0-32.4 [facility] Comment on above: Order Comment: Speci men Type: BLOOD SPECIMENOrdering Facility: [facility] Address: [address], [place] [id number] Performed By: #### 3 4528-0, 80753-4 ####[facility]ORY[facility] [id number] [place] [address] [facility] ALLIED HEALTHon 07-12-2021 ALLIED HEALTH HNO ID: [id number] Author: Chaplain Layla Service: Spiritual Care Author Type: Mixer Diamond Powder Type: Allied Health Filed: 07/12/2021 10:07 AM Note Text: SPIRITUAL CARE ASSESSMENT SERVICE DATE: 07/12/2021 SERVICE TIME: 9:20am Visit with: Patient and Family / Friend / Significant Other Length of visit (minutes): 20 Mandaen / Spirituality: mosque Reason: Follow-up ASSESSMENT Emotional Disposition: Nervous Relational Concerns: Not assessed Spiritual Concerns: Not assessed INTERVENTIONS Empowerment: None / Not Applicable Exploration: None / Not Applicable Relationship Building: Provided silent and supportive presence Ritual: Provided prayer OUTCOMES Patient debriefed/defused their experience PLAN Will follow as circumstances allow COMMENTS: SIGNATURE: Chaplain Layla PATIENT NAME: Fiona Gruber DATE: July 12, 2021 TIME: 10:06 AM PAGER/CONTACT #: [phone] [facility] ANES PRE-OPon 07-12-2021 ANES PRE-OP HNO ID: [id number] Author: Kenan Rubio MD Service: ? Author Type: Physician Type: Anesthesia Preprocedure Evaluation Filed: 07/12/2021 10:41 AM Note Text: ANESTHESIOLOGY DAY OF SURGERY NOTE : 1940 Procedure Information Date/Time: 07/12/21 1140 Procedures: Cervical 4-Thoracic 2 posterior instrumented fusion, Cervical 5-7 laminectomy decompression (Bilateral Neck) ARTHRODESIS CERVICAL BELOW C2, 2ND CERVICAL LEVEL (N/A Neck) ARTHRODESIS CERVICAL BELOW C2, 3RD CERVICAL LEVEL (Bilateral Neck) ARTHRODESIS CERVICAL BELOW C2, 4TH CERVICAL LEVEL (N/A Neck) DECOMPRESSION LAMINECTOMY CERVICAL, FACETECTOMY AND FORAMINOTOMY, SINGLE VERT SEGMENT LEVEL 2 (N/A Neck) DECOMPRESSION LAMINECTOMY 2ND ADD?L CERVICAL SEGMENT (N/A Neck) DECOMPRESSION LAMINECTOMY 3RD ADD?L CERVICAL SEGMENT (N/A Neck) INSERT SPINE FIXATION DEVICE (N/A Neck) BONE MARROW ASPIRATION FOR BONE GRAFTING,SPINE SURGERY ONLY,VIA SEPARATE SKIN OR FASCIAL INCISION (N/A Neck) AUTOGRAFT FOR SPINE SURGERY ONLY, OBTAINED FROM SAME INCISION (N/A Back) DECOMPRESSION LAMINECTOMY 1ST ADD?L CERVICAL SEGMENT (N/A Neck) Location: [place] [facility] / [place] Surgeons: Sahra Amador MD Estimated body mass index is 19.99 kg/m? as calculated from the following: Height as of this encounter: 162.2 cm (5' 3.86). Weight as of this encounter: 52.6 kg (115 lb 15.4 oz). Most recent hematocrit and potassium results: Hematocrit 40.9 07/07/2021 Potassium 3.8 07/11/2021 Relevant Problems CARDIO (+) Essential hypertension ENDO (+) Hypothyroidism, acquired -RENAL (+) CKD (chronic kidney disease), stage III (HCC) Other (+) Arthritis of both knees I - PHYSICAL EVALUATION AIRWAY Patient intubated: No. Tracheostomy tube not present Mallampati: II. TM distance: >3 FB. Neck ROM: full ROM without neurological symptoms. Mouth opening: adequate. Short neck: no. Thick neck: no DENTAL Normal dental observations. Additional exam findings: no II - ANESTHESIA PLAN ASA Score: 3 Anesthetic Plan: general Airway type: ETT NPO Status: adequate Monitoring plan: standard ASA. Postoperative analgesic plan: parenteral or oral opioids. Patient / Surrogate agrees to blood products: Yes Significant changes in the patient condition since the History and Physical, not otherwise documented in primary service progress note: no. Potential Anesthesia issues that may suggest increased risk of complications or contraindication to planned procedure: none. No vitals data found for the desired time range. Facility-Administered Medications as of 07/12/2021 Medication Dose Route Frequency - [JUN Hold due to Transfer] melatonin 3 mg tab(s) 3 mg ORAL DAILY (8 PM) - [JUN Hold due to Transfer] levothyroxine 25 mcg tab(s) (SYNTHROID) 25 mcg ORAL DAILY - [COMPLETED] heparin 5,000 Units injection 5,000 Units SUBCUTANEOUS q 12 H - [JUN Hold due to Transfer] NaCl 0.9% iv flush bag 20 mL INTRAVENOUS PRN - [MAR Hold due to Transfer] sodium chloride 0.9 % (flush) 3-5 mL (BD POSIFLUSH) 3-5 mL INTRAVENOUS q 12 H - [MAR Hold due to Transfer] acetaminophen 650 mg tab(s) (TYLENOL) 650 mg ORAL q 4 H PRN - [JUN Hold due to Transfer] docusate sodium 100 mg cap(s) (COLACE) 100 mg ORAL BID - [MAR Hold due to Transfer] HYDROcodone 5 mg - acetaminophen 325 mg tablet (NORCO) 1-2 tablet ORAL q 6 H PRN Outpatient Medications as of 07/12/2021 Medication Sig - levothyroxine (SYNTHROID) 25 mcg tablet Take 1 tablet by mouth once daily. Take on empty stomach. For thyroid. - aspirin 81 mg chewable tablet Take 1 tablet by mouth once daily. - Alendronate Sodium (FOSAMAX) 70 mg/75 mL solution Take 75 mL by mouth one time a week. - MEDICATION, NON-DATABASE Levothyroxine 25 mcg ProOmega Liquid - 1 tsp daily L-Glutamine Powder - 1 tsp twice daily Digestive Enzymes Ultra - 1 capsule with small meal, 2 with large meal G.I. Detox - 1 capsule, 2 times a week Medi-Hasmukh 500mg - 1 capsule, 2 times a week Ortho Biotic Probiotic - 1 capsule daily Trifortify Waldo Gel - 1/4 tsp daily (will increase by 1/4 tsp each week up to 1 tsp daily) NAC 600 mg - Has not started yet. Was supposed to be started after she got to 3 capsules Medi-Hasmukh. (Patient not taking: Reported on 06/09/2021 ) - TriFortify Waldo Gel ([employer]go Nutritionals) Squeeze tube to fill 1 teaspoon, then swallow twice daily as tolerated Start with 1/4 tsp - Probiotic 50B (Pure Encapsulations) Take 1 capsule daily - ProOmega Liquid ([employer] Take one teaspoonful daily with food - MEDICATION, NON-DATABASE Take 1 tablet by mouth once daily. MagEnhance (Magnesium) (Patient not taking: Reported on 07/07/2021 ) I have interviewed and examined the patient. I have reviewed the medical record and/or the pre-anesthesia evaluation, pertinent labs, and test results. This contains updated information obtained within 48 hours of Surgery/Procedure. SIGNATURE: MD ARNALDO Narayan (more content not included)... Normal [facility] HISTORY PHYSICALon 2 HISTORY PHYSICAL HNO ID: [id number] Author: Lucy Martin PA-C Service: Neurology ICU Author Type: Physician Zipper Setter Chainstitch Type: HANDP Filed: 07/12/2021 11:11 PM Note Text: SERVICE DATE: 07/12/2021 SERVICE TIME: 9:00PM NEUROLOGICAL INTENSIVE CARE UNIT CONSULT REASON FOR ADMISSION: Post op cervical spine decompression and fixation C6-C7 Subjective HPI: Fiona Gruber is an 81 year old female with a past medical history significant for DEMETRA, diverticulosis, essential tremor, hypercalcemia, hypothyroidism, osteopenia, vitamin B deficiency, and Vitamin D deficiency. She was previously admitted from 06/20-06/23 s/p fall while at home on 06/20 with C6 and C7 facet fractures. Discharged home with home health care. She presented to outpatient clinic with Dr. Amador 07/07 with follow up imaging which demonstrated worsening stability centered at C6/C7. She was admitted to inpatient directly from clinic on 07/07 for further imaging and surgical planning.OR with Dr. Amador 07/12/2021 for surgical decompression and fixation. Intraoperatively, experienced some issues with intra nerve. She is being admitted to NSICU post operatively for close neuro monitoring and blood pressure augmentation. PAST MEDICAL HISTORY Diagnosis Date - Age related osteoporosis - DEMETRA (acute kidney injury) (HCC) 08/18/2019 - Arthritis of both knees 03/08/2015 - Diarrhea - Diverticulosis of colon (without mention of hemorrhage) - Essential tremor 03/08/2016 - Hypercalcemia 03/13/2018 - Hyperparathyroidism, unspecified (HCC) - Hypothyroidism, acquired 05/22/2020 - Irritable bowel syndrome - Osteopenia - Pill dysphagia - Sciatica - Secondary hyperparathyroidism (HCC) 08/02/2010 - Vitamin B 12 deficiency 08/18/2019 - Vitamin D deficiency 01/19/2014 PAST SURGICAL HISTORY Procedure Laterality Date - ADENOIDECTOMY PRIMARY Adenoidectomy - COLONOSCOPY FLX DX W/COLLJ SPEC WHEN PFRMD 08/19/1999 Colonoscopy - COLONOSCOPY FLX DX W/COLLJ SPEC WHEN PFRMD 07/14/2009 Repeat in - COLONOSCOPY FLX DX W/COLLJ SPEC WHEN PFRMD 09/30/2019 Colonoscopy - PAST SURGICAL HISTORY OF Bilateral partial knee replacemenet - TONSILLECTOMY PRIMARY/SECONDARY Tonsillectomy FAMILY HISTORY Problem Relation Age of Onset - Arthritis Mother - other (Dementia) Mother - Heart Father [place], bi-pass surgery X-2/diabetes - Headache Sister - Thyroid Sister - Calcium Disorder No Family History ALLERGIES Allergen Reactions - Amoxicillin Hives GI upset - Fall Allergy [Other] - Oxycodone GI Upset - Penicillins Hives - Seasonal Allergies Itching Fall PRIOR TO ADMISSION MEDICATIONS: acetaminophen (TYLENOL EXTRA STRENGTH) 500 mg tablet, Take 500 mg by mouth every 8 hours as needed., Disp: , Rfl: levothyroxine (SYNTHROID) 25 mcg tablet, Take 1 tablet by mouth once daily. Take on empty stomach. For thyroid., Disp: 90 tablet, Rfl: 3 aspirin 81 mg chewable tablet, Take 1 tablet by mouth once daily., Disp: 30 tablet, Rfl: 2 Alendronate Sodium (FOSAMAX) 70 mg/75 mL solution, Take 75 mL by mouth one time a week., Disp: 300 mL, Rfl: 11 MEDICATION, NON-DATABASE, Levothyroxine 25 mcg ProOmega Liquid - 1 tsp daily L-Glutamine Powder - 1 tsp twice daily Digestive Enzymes Ultra - 1 capsule with small meal, 2 with large meal G.I. Detox - 1 capsule, 2 times a week Medi-Hasmukh 500mg - 1 capsule, 2 times a week Ortho Biotic Probiotic - 1 capsule daily Trifortify Waldo Gel - 1/4 tsp daily (will increase by 1/4 tsp each week up to 1 tsp daily) NAC 600 mg - Has not started yet. Was supposed to be started after she got to 3 capsules Medi-Hasmukh. (Patient not taking: Reported on 06/09/2021 ), Disp: , Rfl: TriFortify Waldo Gel ([employer] Nutritionals), Squeeze tube to fill 1 teaspoon, then swallow twice daily as tolerated Start with 1/4 tsp, Disp: , Rfl: Probiotic 50B (Pure Encapsulations), Take 1 capsule daily, Disp: , Rfl: ProOmega Liquid ([employer] Take one teaspoonful daily with food, Disp: , Rfl: MEDICATION, NON-DATABASE, Take 1 tablet by mouth once daily. MagEnhance (Magnesium) (Patient not taking: Reported on 07/07/2021 ), Disp: , Rfl: Social History Tobacco Use - Smoking status: Never Smoker - Smokeless tobacco: Never Used Substance Use Topics - Alcohol use: Yes Comment: Occasionally wine - Drug use: No Employer And Job Title: [employer] (Retired ) Years Of Education Completed: Not specified Marital Status: to [place] with 3 children REVIEW OF SYSTEMS: COMPLETE REVIEW OF SYSTEMS PAIN ASSESSMENT: Denies pain currently GENERAL: No weight loss, malaise or fevers HEENT: No changes in hearing or vision, no nose bleeds or other nasal problems. and Negative for frequent or significant headaches NECK: Negative for pain and significant neck swelling RESPIRATORY: Negative for cough, wheezing or shortness of breath. CARDIOVASCULAR: Negative for chest pain, leg swelling or palpitations. GI: Negative for (more content not included)... Normal [facility] MRSA Spec Ql Culton 07-13-19 22 MRSA isol Org specific cx Ql (Unsp spec) CULTURE, MRSA/MSSA SCREEN: Negative for Staphylococcus aureus Normal [facility] Comment on above: Performed By: #### 1 3317-3 #### [facility] CLIA [id number] [address] [place] [address] OF [facility] OPERATIVE NOon 07-12-2021 OPERATIVE NO HNO ID: [id number] Author: Sahra Amador MD Service: Neurosurgery Author Type: Physician Type: Operative Report Filed: 08/01/2021 6:32 AM Note Text: OPERATIVE/PROCEDURE REPORT LOG ID: [id number] SURGERY/PROCEDURE DATE: 07/12/2021 INCISION/PROCEDURE START TIME: 1:56 PM INCISION CLOSE/PROCEDURE END TIME: 4:04 PM SURGEON(S)/PROCEDURALI ST(S) AND WINDOW UNIT AIR CONDITIONING MECHANIC(S): Surgeon(s) and Role: * Sahra Amador MD - Primary * Julio Maciel MD - Assisting * Javier Yousif MD - Resident - Assisting No Additional Staff SURGERY/PROCEDURE(S): C4-T2 posterior instrumented fusion Intraoperative reduction of cervical fracture C5-C7 posterior laminectomy, decompression Use of intraoperative neuromonitoring FINDINGS: SSEP signals along left C8/ulnar distribution decreased to 50 percent of baseline during instrumentation, remained constant Motor signals decreased during decompression, but started recovering appropriately Satisfactory decompression of spinal cord and placement of hardware confirmed by intraoperative xray ANESTHESIA: General OPERATIVE INDICATIONS: Patient is an 81 year old female with a prior mechanical fall w/ resultant left sided C6/7 facet fracture w/ less than 50% facet fracture area and very mild subluxation who was initially managed conservatively who presented w/ worsening upper extremity weakness, gait imbalance and coronally imbalanced cervical spine w/ widening of right sided C5/6 facet joint. Due to the failure of conservative management and her coronal imbalance, the recommendation was made for a surgical decompression, reduction of fracture, and decompression. After counseling the patient on the risks and benefits, she agreed and consented to the procedure. SURGERY/PROCEDURE DETAILS: The patient was brought into the operating room. Prior to induction of anesthesia, an audible huddle was performed confirming site of operation, planned operation, need for antibiotics, and other anticipated needs with the patient and/or the patient's surrogate decision maker, surgical, nursing, and anesthesia teams. All agreed to proceed. The patient was positioned in a Allan headholder, placed in a prone position on the regular OR table in neutral flexion, affixed to the operating table and a linear incision was planned. Pre and post flip neuromonitoring was at baseline. Perioperative antibiotics were administered. The surgical region was prepped and draped in the usual sterile fashion. All pressure points were verified to be padded appropriately. Prior to starting the operation the surgical team paused and performed an audible timeout. The surgical, nursing, and anesthesia personnel agreed with the procedure to be performed. The skin was incised using a #10 blade scalpel. The subcutaneous tissues were dissected down to the level of the the midline raphe in the avascular plane using monopolar electrocautery with hemostasis being maintained using bipolar electrocautery. Dissection continued down the midline avascular raphe until the spinous processes were identified. Dissection using monopolar electrocautery continued laterally in the subperiosteal plane down the lamina until the lamina, lateral masses of C4-C7, and T1 and T2 facet joints and transverse processes/rib heads were exposed. Self retaining retractors were placed into the incision. A [place] #4 dissector was placed in the C3/4 facet joint and a cross table xray using C arm was performed to confirm proper localization and independently confirmed by two attending surgeons. The fracture was noted to be almost completely reduced, and the decision was made to fuse the patient in situ due to the reduction. Attention was then turned toward instrumentation. Neuromonitoring of sensory and motor evoked potentials continued throughout the case. The midpoints of the lateral masses of C4-C6 were identified, and maritime pilot holes were drilled 1mm medial and inferior to the midpoints of the lateral masses. Screw trajectories were drilled, confirmed to be in proper orientation using palpation, and sequentially, 14mm cervical lateral mass screws were placed into the lateral masses. Attention was then turned toward instrumentation of T1 and T2. The joint spaces between C7/T1 and T1/T2 were identified and maritime pilot holes were drilled at the starting trajectories. Sequentially, the trajectories were drilled, tapped with a lenke probe, and confirmed to be in proper trajectory using palpation. During the placement of the T1 screw, SSEP signals along left C8/ulnar distribution decreased to 50 percent of baseline, remained constant. To confirm proper trajectories, probes were placed along the drilled trajectories and confirmed using intraoperative C arm radiographs. The T1 and T2 screws were then placed along the drilled trajectories without difficulty. Attention was then turned toward decompression. The laminae of C4-C6 were drill (more content not included)... Normal [facility] XR CERVICAL 2V AP/LATon XR CERVICAL 2V AP/LAT * * *Final Report* * * DATE OF EXAM: Jul 12 2021 3:42PM AKO [id number] - XR CERVICAL 2V AP/LAT / PROCEDURE REASON: CSPINE POSTERIOR FUSION * * * * Physician Interpretation * * * * EXAM TITLE: XR CERVICAL 2V AP/LAT DATE: 07/12/2021 at 1331 INDICATION: Intraoperative films for cervical decompression and fixation. COMPARISON: None. Frontal lateral views of the cervical spine show pedicle screws and stabilizing rods extending from C4 down to approximately T2. Endotracheal tube seen anteriorly. 26 seconds of fluoroscopic time utilized. IMPRESSION: Intraoperative films of cervical spine during posterior decompression and fixation. Neonatologist: LAURA Transcribe Date/Time: Jul 14 2021 8:52A Dictated by : FREDI TSANG MD This examination was interpreted and the report reviewed and electronically signed by: FREDI TSANG MD on Jul 14 2021 8:55AM EST [id number] [facility] ALLIED HEALTHon 07-11-2021 ALLIED HEALTH HNO ID: [id number] Author: Chaplain Layla Service: Spiritual Care Author Type: Mixer Diamond Powder Type: Allied Health Filed: 07/11/2021 1:29 PM Note Text: SPIRITUAL CARE PROGRESS NOTE SERVICE DATE: 07/11/2021 SERVICE TIME: 1:10pm attempted to follow up with patient, but patient was sleeping To contact the Spiritual Care Department: Please call . SIGNATURE: Chaplain Layla PATIENT NAME: Fiona Gruber DATE: July 11, 2021 TIME: 1:29 PM PAGER/CONTACT #: [phone] Normal [facility] ALLIED HEALTH HNO ID: [id number] Author: Chaplain Luis Service: Spiritual Care Author Type: Mixer Diamond Powder Type: Allied Health Filed: 07/11/2021 12:32 PM Note Text: SPIRITUAL CARE ASSESSMENT SERVICE DATE: 07/11/2021 SERVICE TIME: 11:25am Visit with: Patient Length of visit (minutes): 60 Mandaen / Spirituality: Shinto Reason: Initial visit ASSESSMENT Emotional Disposition: Grateful Relational Concerns: None Spiritual Concerns: None INTERVENTIONS Empowerment: Encouraged self-care Exploration: None / Not Applicable Relationship Building: Provided hospitality Ritual: Provided prayer OUTCOMES Patient expressed gratitude PLAN Will follow as circumstances allow COMMENTS: SIGNATURE: Chaplain Luis PATIENT NAME: Fiona Gruber DATE: July 11, 2021 TIME: 12:30 PM PAGER/CONTACT #: [phone] Normal [facility] Basic metabolic 2000 panelon 07-11-2021 Anion gap [Moles/Vol] 10 mmol/L Normal 9-18 [facility] Comment on above: Order Comment: Speci men Type: BLOOD SPECIMENOrdering Facility: [facility] Address: [address] [place] [address] Performed By: #### 2 432-, ####[facility]IA [id number] [address] [place] Calcium [Mass/Vol] 9.4 mg/dL Normal 8.5-10.2 [facility] Comment on above: Order Comment: Speci men Type: BLOOD SPECIMENOrdering Facility: [facility] Address: [address] [place] [address] Performed By: #### 2 432-, ####[facility]ORYCLIA [id number] [place] [address] [place] Chloride [Moles/Vol] 103 mmol/L Normal 97-105 [facility] Comment on above: Order Comment: Speci men Type: BLOOD SPECIMENOrdering Facility: [facility] Address: [address] [place] [address] Performed By: #### 2 4322, ####[facility]CLIA [id number] [address] OF [facility] CO2 [Moles/Vol] 23 mmol/L Normal 22-30 [facility] Comment on above: Order Comment: Speci men Type: BLOOD SPECIMENOrdering Facility: [facility] Address: [address] [place] [address] Performed By: #### 2 4322, ####[facility]ORYCLIA [id number] [address] Creatinine [Mass/Vol] 0.67 mg/dL Normal 0.58-0.96 [facility] Comment on above: Order Comment: Speci men Type: BLOOD SPECIMENOrdering Facility: [facility] Address: [address] [place] [address] Performed By: #### 2 43204-10, ####[facility]ORYCLIA [id number] [address] ESTIMATED GLOMERULAR FILTRATION RATE 88 mL/min/1.73m??? Normal >=60 [facility] Comment on above: Order Comment: Speci men Type: BLOOD SPECIMENOrdering Facility: [facility] Address: [address] [place] [address] Result Comment: Lawanda mated Glomerular Filtration Rate (eGFR) is calculated using the 2020 CKD-EPI creatinine equation. This equation utilizes serum creatinine, sex, and age as parameters. The creatinine assay has traceable calibration to isotope dilution-mass spectrometry. Refer to KDIGO guidelines for clinical interpretation. In patients with unstable renal function, e.g. those with acute kidney injury, the eGFR may not accurately reflect actual GFR. Performed By: #### 2 432 ####[facility]ORYCLIA [id number] [place] [address] [place] Glucose [Mass/Vol] 114 mg/dL High 74-99 [facility] Comment on above: Order Comment: Speci men Type: BLOOD SPECIMENOrdering Facility: [facility] Address: [address] [place] [address] Result Comment: The [place] Diabetes Association (ADA) provides guidance for cutoff values for fasting glucose and random glucose. The ADA defines fasting as no caloric intake for at least 8 hours. Fasting plasma glucose results between 100 to 125 mg/dL indicate increased risk for diabetes (prediabetes). Fasting plasma glucose results greater than or equal to 126 mg/dL meet the criteria for diagnosis of diabetes. In the absence of unequivocal hyperglycemia, results should be confirmed by repeat testing. In a patient with classic symptoms of hyperglycemia or hyperglycemic crisis, random plasma glucose results greater than or equal to 200 mg/dL meet the criteria for diagnosis of diabetes. Reference: Standards of Medical Care in Diabetes 2016, [place] Diabetes Association. Diabetes Care. 2016.39(Suppl 1). Performed By: #### 2 ####[facility]ORYCLIA [id number] [place] [address] [place] Potassium [Moles/Vol] 3.8 mmol/L Normal 3.7-5.1 [facility] Comment on above: Order Comment: Speci men Type: BLOOD SPECIMENOrdering Facility: [facility] Address: [address] [place], [place] [id number] Performed By: #### 2 ####[facility]ORYCLIA [id number] [place] [address] [place] Sodium [Moles/Vol] 136 mmol/L Normal 136-144 [facility] Comment on above: Order Comment: Speci men Type: BLOOD SPECIMENOrdering Facility: [facility] Address: [address] [place], [place] [id number] Performed By: #### 2 ####[facility]ORYCLIA [id number] [address] [place] Urea nitrogen [Mass/Vol] 16 mg/dL Normal 7-21 [facility] Comment on above: Order Comment: Speci men Type: BLOOD SPECIMENOrdering Facility: [facility] Address: [address] [place] [address] Performed By: #### 2 4321-2, 59277-4 ####[facility]ORYCLIA [id number] [address] [place] CASE MANAGEMon 07-11-2021 CASE MANAGEM HNO ID: [id number] Author: Sherin Dior RN Service: Nursing Author Type: Registered Nurse Type: Care Mgt Progress Note Filed: 07/11/2021 1:05 PM Note Text: CARE MANAGEMENT PROGRESS NOTE SERVICE DATE: 07/11/2021 SERVICE TIME: 1:03 PM LOS: 4 days Needs Prior to Discharge: To Be Determined;Procedure Patient s/p mechanical fall a few weeks ago with cervical fracture. Patient now with worsening instability. Scheduled for cervical fusion and lami with Dr. Amador, tomorrow 07/12. Postoperatively, PT/OT evals will be completed. Care Management will continue to follow for discharge planning. SIGNATURE: Sherin Dior RN PATIENT NAME: Fiona Gruber DATE: July 11, 2021 TIME: 1:03 PM PAGER/CONTACT #: [phone] Normal [facility] CONFIRM BLOOD TYPEon 022 ABO A Normal [facility] Comment on above: Order Comment: Speci men Type: BLOOD SPECIMEN Ordering Facility: [facility] Address: [address] [place] [address] Performed By: #### C ONABO #### [facility] CLIA [id number] [address] OF [facility] Rh Nom (Bld) Positive Normal [facility] Comment on above: Order Comment: Speci men Type: BLOOD SPECIMEN Ordering Facility: [facility] Address: [address] [place] [address] Performed By: #### C ONABO #### [facility] CLIA [id number] [address] [place] [id number] [place] Magnesium SerPl-mCncon 07-11 Magnesium [Mass/Vol] 2.0 mg/dL Normal 1.7-2.3 [facility] Comment on above: Order Comment: Speci men Type: BLOOD SPECIMENOrdering Facility: [facility] Address: [address] [place] [address] Performed By: #### 2 4321-2, 08540-7 ####[facility]ORATORYCLIA [id number] [place] [id number] [place] NURSING PROGon 07-11-2021 NURSING PROG HNO ID: [id number] Author: Akua Fields RN Service: ? Author Type: Registered Nurse Type: Nursing Progress Note Filed: 07/11/2021 8:09 AM Note Text: Nursing Progress Note Patient Name: Fiona Gruber Patient Location: [id number]/[facility]00-8 104-02 __ Code jim was called at 0654. Patient baseline is AANDOX3, this morning patient became confused and didn't know where she was. Patient became agitated and frustrated and wanted to leave. She became agitated due to bed alarm and stated she felt captive and didn't trust any of the staff members including me. Patient was confused about her scheduled surgery tomorrow and thought she already had it. Patient is normally aware about the day of her surgery. Patient agreed to stay if she could talk to her and have breakfast with him. Patient was on his way to hospital. Patient last seen eating breakfast with and stated she felt better. Will continue to monitor. This note was completed by: Akua Fields Normal [facility] PT panel Coag (PPP)on 2021 INR Coag (PPP) [Relative time] 1.0 {INR} Normal 0.9-1.3 [facility] Comment on above: Order Comment: Steph whiting Type: BLOOD SPECIMENOrdering Facility: [facility] Address: [address] [place], [place] [id number] Result Comment: Naldo min K Antagonist (VKA) Therapeutic Range: INR 2 to 3 (Target INR of 2.5) Note: For patients treated with VKA drugs, such as warfarin, the [place] [employer] 2012 Guideline recommends a therapeutic INR range of 2 to 3 (target INR of 2.5). This recommendation includes high-risk patients with antiphospholipid syndrome with previous arterial or venous thromboembolism, current-generation mechanical or bioprosthetic aortic heart valve replacement. Note: Patients with mechanical aortic valve replacement and additional risk factors for thromboembolic events (atrial fibrillation, previous thromboembolism, LV dysfunction, hypercoagulable conditions) or an older generation mechanical AVR (i.e., ball in-Cage) or any mechanical MVR should have a INR therapeutic range of 2.5 to 3.5 (target INR of 3). Kai GH, et al. Chest 2012, 141:7S-47S Gus RA, et al. [facility] 2017, 70: 252-289 Performed By: #### 1 4979-9, 64529-4 ####[facility] [id number] [place] [address] [place] PT Coag (PPP) [Time] 10.7 s Normal 9.7-13.0 [facility] Comment on above: Order Comment: Steph whiting Type: BLOOD SPECIMENOrdering Facility: [facility] Address: [address] [place] [address] Performed By: #### 1 4979-9, 23294-4 ####[facility]OR[facility]ORYIA [id number] [address] [place] SARS-CoV-2 RNA Resp Ql KY+p emeritaeon 07-11-2021 SARS-CoV-2 (COVID-19) RNA KY+probe Ql (Resp) COVID 19 RESULT: SARS-CoV-2 (Agent of COVID-19) Not Detected by RT-PCR or equivalent method. This test has been authorized by FDA under an Emergency Use Authorization (EUA). [facility] Comment on above: Performed By: #### 9 4500-6 #### [facility] CLIA [id number] [address] TYPE AND SCREENon 07-11-2021 ABO A Normal [facility] Comment on above: Order Comment: Speci men Type: BLOOD SPECIMEN Ordering Facility: [facility] Address: [address] [place] [address] Performed By: #### T SCR #### [facility] CLIA [id number] [address] HISTORICAL AB SCR STATUS Negative [facility] Comment on above: Order Comment: Speci men Type: BLOOD SPECIMEN Ordering Facility: [facility] Address: [address] [place] [address] Performed By: #### T SCR #### [facility] CLIA [id number] [address] Rh Nom (Bld) Positive [facility] Comment on above: Order Comment: Speci men Type: BLOOD SPECIMEN Ordering Facility: [facility] Address: [address] [place] [address] Performed By: #### T SCR #### [facility] CLIA [id number] [address] TYPE AND SCREEN EXPIRATION 07/14/2021 23:59 [facility] Comment on above: Order Comment: Speci men Type: BLOOD SPECIMEN Ordering Facility: [facility] Address: [address] [place] [address] Performed By: #### T SCR #### [facility] CLIA [id number] [address] aPTT PPPon 07-11-2021 aPTT Coag (PPP) [Time] 25.6 s Normal 23.0-32.4 [facility] Comment on above: Order Comment: Speci men Type: BLOOD SPECIMENOrdering Facility: [facility] Address: [address] [place] [address] Performed By: #### 1 4979-9, 75922-3 ####[facility]ORATORYCLIA [id number] [place] [id number] [place] CT CERVICAL SPINE WO IVCONon 07-10-2021 CT CERVICAL SPINE WO IVCON * * *Final Report* * * DATE OF EXAM: Jul 10 2021 2:06PM [facility] 0505 - CT CERVICAL SPINE WO IVCON / PROCEDURE REASON: C-spine fx, traumatic * * * * Physician Interpretation * * * * EXAMINATION: CT CERVICAL SPINE WO IVCON CLINICAL HISTORY: C-spine fx, traumatic TECHNIQUE: Spiral, high resolution axial unenhanced images were obtained from the skull base to the cervicothoracic junction with sagittal and coronal planar reconstructions. MQ: [id number] CT Radiation dose: Integrated CT Dose-Length Product (DLP) for this visit = 286 mGy*cm CT Dose Reduction Employed: Automated exposure control(AEC) and iterative recon COMPARISON: MRI dated 06/21/2021 and C-spine CT dated 06/20/2021 RESULT: Counting reference: Craniocervical junction. Anatomic Variants: None. Manager Leasing (topogram) images: No additional findings. Alignment: Grade 1 anterolisthesis of C6 on C7 which is new in the interval. Additionally, there is widening of the right C6-C7 facet articulation. Craniocervical junction: Craniocervical junction is normal. Osseous structures/fracture: No evidence of a lytic or blastic process in the visualized spine. Again identified are fractures of the left C6 and C7 facets with slight anterior rotation of the fracture fragment at the C6 facet, the C7 facet is not significantly changed in alignment. No discrete new fracture is identified. Cervical soft tissues: The paraspinal soft tissues are within normal limits. Degenerative changes: Moderate to severe degenerative disc changes at C6-C7 which appear to have slightly progressed in the interval. IMPRESSION: Fractures of the C6 and C7 facets with minimal progressed anterior location of the fracture fragment at the C6 facet. Widening of the C6-C7 facet articulation on the right with new grade 1 anterolisthesis of C6 on C7 worrisome for ligamentous injury. No new fracture. Anatomic Variant: None. Assume 7 cervical vertebrae with counting from the craniocervical junction. Neonatologist: PSCB Transcribe Date/Time: Jul 10 2021 4:06P Dictated by : CHINA SRINIVASAN MD This examination was interpreted and the report reviewed and electronically signed by: CHINA SRINIVASAN MD on Jul 10 2021 4:15PM EST [id number] [facility] 07-08-2021 [facility] HNO ID: [id number] Author: Chaplain Layla Service: Spiritual Care Author Type: Mixer Diamond Powder Type: [facility] Filed: 07/08/2021 2:43 PM Note Text: SPIRITUAL CARE ASSESSMENT SERVICE DATE: 07/08/2021 SERVICE TIME: 2:15pm Visit with: Patient Length of visit (minutes): 30 Mandaen / Spirituality: mosque Reason: Initial visit ASSESSMENT Emotional Disposition: Nervous Relational Concerns: Lack of clarity about diagnosis or treatment Spiritual Concerns: Not assessed INTERVENTIONS Empowerment: Encouraged self-care Exploration: Explored emotional needs and resources Relationship Building: Provided silent and supportive presence Ritual: Provided prayer OUTCOMES Patient debriefed/defused their experience and Patient's distress reduced PLAN Will follow as circumstances allow COMMENTS: SIGNATURE: Chaplain Layla PATIENT NAME: Fiona Gruber DATE: July 08, 2021 TIME: 2:42 PM PAGER/CONTACT #: [phone] [facility] 07-07-2021 [facility] HNO ID: [id number] Author: RT Mar(Alvin) Service: Radiology Author Type: Technologist Type: [facility] Filed: 07/07/2021 5:39 PM Note Text: Radiology Service Progress Note PATIENT NAME: Fiona Gruber DATE OF SERVICE: July 07, 2021 TIME: 5:39 PM PATIENT IDENTITY VERIFICATION COMPLETED USING TWO (2) IDENTIFIERS: Name and Date of confirmed by patient verbally and Name and Date of confirmed by identification band. FALL SCREENING: Has the patient had 2 falls in the last year or 1 fall with injury or currently using an Ambulatory Assistive Device (Walker, Cane, Wheelchair, Crutches, etc.)? Inpatient: Screened on floor PATIENT GENDER DATA: Female. status: : No status: NO. PATIENT RELEVANT IMPLANT DATA REVIEWED: Not Applicable RADIOLOGY DEPARTMENT: General X-ray: Exam(s) Completed: Chest X-Ray PERIPHERAL IV DATA: Not applicable SIGNED BY: RT Gita(R) July 07, 2021 5:39 PM Normal [facility] Basic metabolic 2000 panelon 07-07-2021 Anion gap [Moles/Vol] 11 mmol/L Normal 9-18 [facility] Comment on above: Order Comment: Speci men Type: BLOOD SPECIMENOrdering Facility: [facility] Address: [address] [place] [address] Performed By: #### 2 4321-2 ####[facility] LABORATORYCLIA [id number] [place] [address] [place] Calcium [Mass/Vol] 9.6 mg/dL Normal 8.5-10.2 [facility] Comment on above: Order Comment: Speci men Type: BLOOD SPECIMENOrdering Facility: [facility] Address: [address] [place] [address] Performed By: #### 2 4321-2 ####[facility]ATORYCLIA [id number] [place] [address] [place] Chloride [Moles/Vol] 101 mmol/L Normal 97-105 [facility] Comment on above: Order Comment: Speci men Type: BLOOD SPECIMENOrdering Facility: [facility] Address: [address] [place] [address] Performed By: #### 2 4321-2 ####[facility]ORATORYCLIA [id number] [place] [address] [place] CO2 [Moles/Vol] 25 mmol/L Normal 22-30 [facility] Comment on above: Order Comment: Speci men Type: BLOOD SPECIMENOrdering Facility: [facility] Address: [address] [place] [address] Performed By: #### 2 4321-2 ####[facility]ORATORYCLIA [id number] [place] [address] [place] Creatinine [Mass/Vol] 0.66 mg/dL Normal 0.58-0.96 [facility] Comment on above: Order Comment: Ruthbrinda whiting Type: BLOOD SPECIMENOrdering Facility: [facility] Address: [address] [place] [id number] Performed By: #### 2 4321-2 ####[facility]ORATORYCLIA [id number] [place] [address] [place] ESTIMATED GLOMERULAR FILTRATION RATE 88 mL/min/1.73m??? Normal >=60 [facility] Comment on above: Order Comment: Ruthbrinda whiting Type: BLOOD SPECIMENOrdering Facility: [facility] Address: [address] [place] [address] Result Comment: Lawanda mated Glomerular Filtration Rate (eGFR) is calculated using the 2020 CKD-EPI creatinine equation. This equation utilizes serum creatinine, sex, and age as parameters. The creatinine assay has traceable calibration to isotope dilution-mass spectrometry. Refer to KDIGO guidelines for clinical interpretation. In patients with unstable renal function, e.g. those with acute kidney injury, the eGFR may not accurately reflect actual GFR. Performed By: #### 2 4321-2 ####[facility]ORYCLIA [id number] [place] [address] [place] Glucose [Mass/Vol] 93 mg/dL Normal 74-99 [facility] Comment on above: Order Comment: Steph whiting Type: BLOOD SPECIMENOrdering Facility: [facility] Address: [address] [place] [address] Result Comment: The [place] Diabetes Association (ADA) provides guidance for cutoff values for fasting glucose and random glucose. The ADA defines fasting as no caloric intake for at least 8 hours. Fasting plasma glucose results between 100 to 125 mg/dL indicate increased risk for diabetes (prediabetes). Fasting plasma glucose results greater than or equal to 126 mg/dL meet the criteria for diagnosis of diabetes. In the absence of unequivocal hyperglycemia, results should be confirmed by repeat testing. In a patient with classic symptoms of hyperglycemia or hyperglycemic crisis, random plasma glucose results greater than or equal to 200 mg/dL meet the criteria for diagnosis of diabetes. Reference: Standards of Medical Care in Diabetes 2016, [place] [employer] Association. Diabetes Care. 2016.39(Suppl 1). Performed By: #### 2 4321-2 ####[facility]ATORYCLIA [id number] [address] [place] Potassium [Moles/Vol] 4.3 mmol/L Normal 3.7-5.1 [facility] Comment on above: Order Comment: Speci men Type: BLOOD SPECIMENOrdering Facility: [facility] Address: [address] [place] [address] Performed By: #### 2 4321-2 ####[facility]ORATORYCLIA [id number] [address] STATES OF [facility] Sodium [Moles/Vol] 137 mmol/L Normal 136-144 [facility] Comment on above: Order Comment: Speci men Type: BLOOD SPECIMENOrdering Facility: [facility] Address: [address] [place] [address] Performed By: #### 2 4321-2 ####[facility]ORATORYCLIA [id number] [address] STATES [facility] Urea nitrogen [Mass/Vol] 16 mg/dL Normal 7-21 [facility] Comment on above: Order Comment: Speci men Type: BLOOD SPECIMENOrdering Facility: [facility] Address: [address] [place] [address] Performed By: #### 2 4321-2 ####[facility]ORYCLIA [id number] [address] [place] CBC W Auto Differential pane l (Bld)on 07-07-2021 Basophils (Bld) [#/Vol] 0.03 10*3/uL Normal <0.11 [facility] Comment on above: Order Comment: Speci men Type: BLOOD SPECIMENOrdering Facility: [facility] Address: [address] [place] [address] Performed By: #### 5 7021-8 ####[facility]ORYCLIA [id number] [address] Basophils/100 WBC (Bld) 0.4 % Normal A [facility] Comment on above: Order Comment: Speci men Type: BLOOD SPECIMENOrdering Facility: [facility] Address: [address] [place] [address] Performed By: #### 5 7021-8 ####[facility]ORYCLIA [id number] [address] Differential cell count method Nom (Bld) Auto Normal [facility] Comment on above: Order Comment: Speci men Type: BLOOD SPECIMENOrdering Facility: [facility] Address: [address] [place] [address] Performed By: #### 5 7021-8 ####[facility]ORYCLIA [id number] [address] Eosinophils (Bld) [#/Vol] 10*3/uL Normal <0.46 [facility] Comment on above: Order Comment: Speci men Type: BLOOD SPECIMENOrdering Facility: [facility] Address: [address] [place] [address] Performed By: #### 5 7021-8 ####[facility]ATORYCLIA [id number] [address] Eosinophils/100 WBC (Bld) 0.3 % Normal [facility] Comment on above: Order Comment: Speci men Type: BLOOD SPECIMENOrdering Facility: [facility] Address: [address] [place] [address] Performed By: #### 5 7021-8 ####[facility]ATORYCLIA [id number] [address] Erythrocyte distribution width (RBC) [Ratio] 15.5 % High 11.5-15.0 [facility] Comment on above: Order Comment: Speci men Type: BLOOD SPECIMENOrdering Facility: [facility] Address: [address] [place] [address] Performed By: #### 5 7021-8 ####[facility]ATORYCLIA [id number] [address] [place] Hematocrit (Bld) [Volume fraction] 40.9 % Normal 36.0-46.0 [facility] Comment on above: Order Comment: Speci men Type: BLOOD SPECIMENOrdering Facility: [facility] Address: [address] [place] [address] Performed By: #### 5 7021-8 ####[facility]ATORYCLIA [id number] [address] [place] Hemoglobin (Bld) [Mass/Vol] 13.1 g/dL Normal 11.5-15.5 [facility] Comment on above: Order Comment: Speci men Type: BLOOD SPECIMENOrdering Facility: [facility] Address: [address] [place] [address] Performed By: #### 5 7021-8 ####[facility]ATORYCLIA [id number] [address] IMMATURE GRAN % 0.3 % Normal [facility] Comment on above: Order Comment: Speci men Type: BLOOD SPECIMENOrdering Facility: [facility] Address: [address] [place] [address] Performed By: #### 5 7021-8 ####[facility]ATORYCLIA [id number] [address] IMMATURE GRAN ABS <0.03 Normal <0.10 [facility] Comment on above: Order Comment: Speci men Type: BLOOD SPECIMENOrdering Facility: [facility] Address: [address] [place] [address] Performed By: #### 5 7021-8 ####[facility]ORYCLIA [id number] [address] OF [place] Lymphocytes (Bld) [#/Vol] 1.29 10*3/uL Normal 1.00-4.00 [facility] Comment on above: Order Comment: Speci men Type: BLOOD SPECIMENOrdering Facility: [facility] Address: [address] [place] [address] Performed By: #### 5 7021-8 ####[facility]ORYCLIA [id number] [address] Lymphocytes/100 WBC (Bld) 17.7 % Normal [facility] Comment on above: Order Comment: Speci men Type: BLOOD SPECIMENOrdering Facility: [facility] Address: [address] [place] [address] Performed By: #### 5 7021-8 ####[facility]ATORYCLIA [id number] [address] MCH (RBC) [Entitic mass] 28.1 pg Normal 26.0-34.0 [facility] Comment on above: Order Comment: Speci men Type: BLOOD SPECIMENOrdering Facility: [facility] Address: [address] [place] [address] Performed By: #### 5 7021-8 ####[facility]ORYCLIA [id number] [address] MCHC (RBC) [Mass/Vol] 32.0 g/dL Normal 30.5-36.0 [facility] Comment on above: Order Comment: Speci men Type: BLOOD SPECIMENOrdering Facility: [facility] Address: [address] [place] [address] Performed By: #### 5 7021-8 ####[facility]ORYCLIA [id number] [address] MCV (RBC) [Entitic vol] 87.8 fL Normal 80.0-100.0 [facility] Comment on above: Order Comment: Speci men Type: BLOOD SPECIMENOrdering Facility: [facility] Address: [address] [place] [address] Performed By: #### 5 7021-8 ####[facility]ORYCLIA [id number] [address] Monocytes (Bld) [#/Vol] 0.89 10*3/uL High <0.87 [facility] Comment on above: Order Comment: Speci men Type: BLOOD SPECIMENOrdering Facility: [facility] Address: [address] [place] [address] Performed By: #### 5 7021-8 ####[facility] LABORATORYCLIA [id number] [address] [place] Monocytes/100 WBC (Bld) 12.2 % Normal A [facility] Comment on above: Order Comment: Speci men Type: BLOOD SPECIMENOrdering Facility: [facility] Address: [address] [place] [address] Performed By: #### 5 7021-8 ####[facility]ORATORYCLIA [id number] [place] [address] [place] Neutrophils (Bld) [#/Vol] 5.04 10*3/uL Normal 1.45-7.50 [facility] Comment on above: Order Comment: Speci men Type: BLOOD SPECIMENOrdering Facility: [facility] Address: [address] [place] [address] Performed By: #### 5 7021-8 ####[facility]ATORYCLIA [id number] [address] [place] Neutrophils/100 WBC (Bld) 69.1 % Normal [facility] Comment on above: Order Comment: Speci men Type: BLOOD SPECIMENOrdering Facility: [facility] Address: [address] [place] [address] Performed By: #### 5 7021-8 ####[facility] LABORATORYCLIA [id number] [place] [address] [place] Nucleated RBC (Bld) [#/Vol] 10*3/uL Normal <0.01 [facility] Comment on above: Order Comment: Speci men Type: BLOOD SPECIMENOrdering Facility: [facility] Address: [address] [place] [address] Performed By: #### 5 7021-8 ####[facility] LABORATORYCLIA [id number] [place] [address] [place] Nucleated RBC/100 WBC (Bld) [Ratio] 0.0 /100 WBC Normal [facility] Comment on above: Order Comment: Speci men Type: BLOOD SPECIMENOrdering Facility: [facility] Address: [address] [place] [address] Performed By: #### 5 7021-8 ####[facility]ORYCLIA [id number] [place] [address] [place] Platelet mean volume (Bld) [Entitic vol] 10.4 fL Normal 9.0-12.7 [facility] Comment on above: Order Comment: Speci men Type: BLOOD SPECIMENOrdering Facility: [facility] Address: [address] [place] [address] Performed By: #### 5 7021-8 ####[facility]ORYCLIA [id number] [address] [place] Platelets (Bld) [#/Vol] 297 10*3/uL Normal 150-400 [facility] Comment on above: Order Comment: Speci men Type: BLOOD SPECIMENOrdering Facility: [facility] Address: [address] [place] [address] Performed By: #### 5 7021-8 ####[facility]ATORYCLIA [id number] [address] [place] RBC (Bld) [#/Vol] 4.66 10*6/uL Normal 3.90-5.20 [facility] Comment on above: Order Comment: Speci men Type: BLOOD SPECIMENOrdering Facility: [facility] Address: [address] [place] [address] Performed By: #### 5 7021-8 ####[facility]ATORYCLIA [id number] [place] [address] [place] WBC (Bld) [#/Vol] 7.29 10*3/uL Normal 3.70-11.00 [facility] Comment on above: Order Comment: Speci men Type: BLOOD SPECIMENOrdering Facility: [facility] Address: [address] [place], [place] [id number] Performed By: #### 5 7021-8 ####[facility] [id number] [place] [address] [facility] CNOVon 07-07-2021 CNOV Office Visit (NEAGCL M) FIONA GRUBER ([id number]) 1940 F [facility] Date Time Provider Department 07/07/21 1:00 PM SAHRA AMADOR NEAGCLM During your visit today, we recorded the following information about you: Temperature Pulse Blood pressure Weight 98.2 degrees 98/minute 133/60 52.6 kg Height 1.626 m Sahra Amador MD 07/07/2021 11:01 PM Signed NEUROSURGERY CONSULT NOTE Sahra Amador MD PhD Date of visit: July 07, 2021 Patient Name: Ms.Diane Valeri Gruber Date of : 1940 Current Age: [age] year old Sex: female MRN/E# [id number] Chief Complaint: Patient presents with: Established Patient: hospital discharge HISTORY OF PRESENT ILLNESS : The patient is a 81 year old female with a past medical history of demetra, tremor, hypercalcemia, IS, osteopenia, sciatica, hyperparathyroidism, b12 and d deficiency who is here for a follow up after hospital discharge. The patient was evaluated at [facility] after a ground level fall in her home. CT imaging demonstrated a left C6 superior facet and C7 inferior fracture. Patient was transferred to [facility] ER on 06/20/21. At the time she noted numbness in her left thumb. She did not require surgical intervention at this time. She was to wear her cervical collar and follow up outpatient, prompting her visit today. Today she states symptoms are worsening. She notes increased gait imbalance since the fall. She continues to have unchanged sensory deficits in the left hand. Additionally notes weakness in her triceps bilaterally. She denies further falls. She denies bowel or bladder incontinence. Upright cervical xrays from 07/07/21 demonstrated coronally imbalanced cervical spine w/ widening of right sided C5/6 facet joint PREVIOUS CONSERVATIVE TREATMENTS: Cervical collar PREVIOUS SURGERY: none PAIN EVALUATION 07/07/2021 1301 Pain Level: 5 Pain Location: Neck Description: Aching;Sore;Spasm Duration Units: Weeks Frequency: Continuous Intervention/Comfort measure: Medication PAST MEDICAL HISTORY Diagnosis Date - Age related osteoporosis - DEMETRA (acute kidney injury) ([facility]) 08/18/2019 - Arthritis of both knees 03/08/2015 - Diarrhea - Diverticulosis of colon (without mention of hemorrhage) - Essential tremor 03/08/2016 - Hypercalcemia 03/13/2018 - Hyperparathyroidism, unspecified ([facility]) - Hypothyroidism, acquired 05/22/2020 - Irritable bowel syndrome - Osteopenia - Pill dysphagia - Sciatica - Secondary hyperparathyroidism ([facility]) 08/02/2010 - Vitamin B 12 deficiency 08/18/2019 - Vitamin D deficiency 01/19/2014 PAST SURGICAL HISTORY Procedure Laterality Date - ADENOIDECTOMY PRIMARY Adenoidectomy - COLONOSCOPY FLX DX W/COLLJ SPEC WHEN PFRMD 08/19/1999 Colonoscopy - COLONOSCOPY FLX DX W/COLLJ SPEC WHEN PFRMD 07/14/2009 Repeat in - COLONOSCOPY FLX DX W/COLLJ SPEC WHEN PFRMD 09/30/2019 Colonoscopy - PAST SURGICAL HISTORY OF Bilateral partial knee replacemenet - TONSILLECTOMY PRIMARY/SECONDARY Tonsillectomy FAMILY HISTORY Problem Relation Age of Onset - Arthritis Mother - other (Dementia) Mother - Heart Father [place], bi-pass surgery X-2/diabetes - Headache Sister - Thyroid Sister - Calcium Disorder No Family History ALLERGIES Allergen Reactions - Amoxicillin Hives GI upset - Fall Allergy [Other] - Penicillins Hives - Seasonal Allergies Itching Fall Current Outpatient Medications Medication Sig Dispense Refill - acetaminophen (TYLENOL EXTRA STRENGTH) 500 mg tablet Take 500 mg by mouth every 8 hours as needed. - levothyroxine (SYNTHROID) 25 mcg tablet Take 1 tablet by mouth once daily. Take on empty stomach. For thyroid. 90 tablet 3 - aspirin 81 mg chewable tablet Take 1 tablet by mouth once daily. 30 tablet 2 - Alendronate Sodium (FOSAMAX) 70 mg/75 mL solution Take 75 mL by mouth one time a week. 300 mL 11 - TriFortify Waldo Gel (Researched Nutritionals) Squeeze tube to fill 1 teaspoon, then swallow twice daily as tolerated Start with 1/4 tsp - Probiotic 50B (Pure Encapsulations) Take 1 capsule daily - ProOmega Liquid ([place] Naturals) Take one teaspoonful daily with food - MEDICATION, NON-DATABASE Levothyroxine 25 mcg ProOmega Liquid - 1 tsp daily L-Glutamine Powder - 1 tsp twice daily Digestive Enzymes Ultra - 1 capsule with small meal, 2 with large meal G.I. Detox - 1 capsule, 2 times a week Medi-Hasmukh 500mg - 1 capsule, 2 times a week Ortho Biotic Probiotic - 1 capsule daily Trifortify Waldo Gel - 1/4 tsp daily (will increase by 1/4 tsp each week up to 1 tsp daily) NAC 600 mg - Has not started yet. Was supposed to be started after she got to 3 capsules Medi-Hasmukh. (Patient not taking: Reported on 06/09/2021 ) - MEDICATION, NON-DATABASE Take 1 tablet by mouth once daily. MagEnhance (Magnesium) (Patient not taking: Reported on 07/07/2021 ) No current facility-administered medicati (more content not included)... Normal [facility] CONSULTon 07-07-2021 CONSULT HNO ID: [id number] Author: Adore Mccoy DO Service: Hospital Medicine Author Type: Physician Type: Consults Filed: 07/07/2021 5:28 PM Note Text: DEPARTMENT OF HOSPITAL MEDICINE Consult EXAM SERVICE DATE: 07/07/2021 SERVICE TIME: *07/07/2021 Primary Care Physician: Ashley Roberson MD NIGHT AND WEEKEND COVERAGE: [place] COVERAGE: After 7pm, please call cross cover pager #[phone] Subjective CHIEF COMPLAINT: Neck pain HPI: 81 year old female with PMHx of DEMETRA, diverticulosis, essential tremor, hypercalcemia, hypothyroidism, osteopenia, vitamin B deficiency, and Vitamin D deficiency. Patient admitted from 06/20-06/23 after a fall at home. She was admitted to the trauma team from OSH where imaging showed C6 and C7 facet fractures. Patient was seen by trauma and NS and she was discharged from [facility] to home with healthcare in cervical collar to be worn at all times. She was also started on aspirin 81 mg due to grade 1 left vertebral artery injury versus vasospasm. Patient was seen in the outpatient clinic today by Dr. Amador, where follow up imaging demonstrated worsening stability centered at C6/C7. Concerned that fractures are worsening and she was referred to the hospital for admission. Noted intermittent gait imbalance and has sensory deficits in her left hand primarily in her first index finger. She states she was having paresthesias in her thumb as well but this is resolved. He has not had further falls and has been wearing her c-collar as indicated. Admitted by the neurosurgery team with plans for surgery next Sunday. Medicine was consulted for medical management and preop optimization. Denies any previous issues with surgery in the past. She denies any cardiovascular history. She denies any history of CAD. She denies any history of blood clots. She does not take insulin. She denies any trouble swallowing or issues breathing with a c-collar on. She denies any history of COPD or asthma. She is a non-smoker and does not drink alcohol. She states that she is settled in the hospital now and is doing okay. Denies any chest pain, shortness of breath, abdominal pain, nausea vomiting or diarrhea, lower extremity edema, headache, fever or chills. Patient's is at bedside. PAST MEDICAL HISTORY Diagnosis Date - Age related osteoporosis - DEMETRA (acute kidney injury) (HCC) 08/18/2019 - Arthritis of both knees 03/08/2015 - Diarrhea - Diverticulosis of colon (without mention of hemorrhage) - Essential tremor 03/08/2016 - Hypercalcemia 03/13/2018 - Hyperparathyroidism, unspecified ([facility]) - Hypothyroidism, acquired 05/22/2020 - Irritable bowel syndrome - Osteopenia - Pill dysphagia - Sciatica - Secondary hyperparathyroidism (HCC) 08/02/2010 - Vitamin B 12 deficiency 08/18/2019 - Vitamin D deficiency 01/19/2014 PAST SURGICAL HISTORY Procedure Laterality Date - ADENOIDECTOMY PRIMARY Adenoidectomy - COLONOSCOPY FLX DX W/COLLJ SPEC WHEN PFRMD 08/19/1999 Colonoscopy - COLONOSCOPY FLX DX W/COLLJ SPEC WHEN PFRMD 07/14/2009 Repeat in -2019 - COLONOSCOPY FLX DX W/COLLJ SPEC WHEN PFRMD 09/30/2019 Colonoscopy - PAST SURGICAL HISTORY OF Bilateral partial knee replacemenet - TONSILLECTOMY PRIMARY/SECONDARY Tonsillectomy FAMILY HISTORY Problem Relation Age of Onset - Arthritis Mother - other (Dementia) Mother - Heart Father [place], bi-pass surgery X-2/diabetes - Headache Sister - Thyroid Sister - Calcium Disorder No Family History Social History Tobacco Use - Smoking status: Never Smoker - Smokeless tobacco: Never Used Substance Use Topics - Alcohol use: Yes Comment: Occasionally wine - Drug use: No MEDICATIONS: Reviewed acetaminophen (TYLENOL EXTRA STRENGTH) 500 mg tablet, Take 500 mg by mouth every 8 hours as needed., Disp: , Rfl: levothyroxine (SYNTHROID) 25 mcg tablet, Take 1 tablet by mouth once daily. Take on empty stomach. For thyroid., Disp: 90 tablet, Rfl: 3 aspirin 81 mg chewable tablet, Take 1 tablet by mouth once daily., Disp: 30 tablet, Rfl: 2 Alendronate Sodium (FOSAMAX) 70 mg/75 mL solution, Take 75 mL by mouth one time a week., Disp: 300 mL, Rfl: 11 MEDICATION, NON-DATABASE, Levothyroxine 25 mcg ProOmega Liquid - 1 tsp daily L-Glutamine Powder - 1 tsp twice daily Digestive Enzymes Ultra - 1 capsule with small meal, 2 with large meal G.I. Detox - 1 capsule, 2 times a week Medi-Hasmukh 500mg - 1 capsule, 2 times a week Ortho Biotic Probiotic - 1 capsule daily Trifortify Waldo Gel - 1/4 tsp daily (will increase by 1/4 tsp each week up to 1 tsp daily) NAC 600 mg - Has not started yet. Was supposed to be started after she got to 3 capsules Medi-Hasmukh. (Patient not taking: Reported on 06/09/2021 ), Disp: , Rfl: TriFortify Waldo Gel (Researched Nutritionals), Squeeze tube to fill 1 teaspoon, then swallow twice daily as tolerated Start with 1/4 tsp, Disp: , Rfl: Probiotic 50B (Pure Encapsulations), Take 1 capsule daily, (more content not included)... Normal [facility] HISTORY PHYSICALon 2 HISTORY PHYSICAL HNO ID: [id number] Author: Sahra Amador MD Service: Neurosurgery Author Type: Physician Type: HANDP Filed: 07/12/2021 11:38 AM Note Text: HANDP: NEUROSURGERY SERVICE SERVICE DATE: 07/07/2021 SERVICE TIME: 1520 PRIMARY CARE PHYSICIAN: Ashley Roberson MD HISTORY OF PRESENT ILLNESS: Subjective Ms. Gruber is a 81 year old female with PMHx of DEMETRA, diverticulosis, essential tremor, hypercalcemia, hypothyroidism, osteopenia, vitamin B deficiency, and Vitamin D deficiency. Patient previously admitted from 06/20-06/23 subsequent to fall while at home on 06/20. Patient admitted to [facility] from an outside hospital where imaging demonstrated C6 and C7 facet fractures. Patient was discharged from [facility] to home with healthcare in cervical collar to be worn at all times, and started on aspirin 81 mg due to grade 1 left vertebral artery injury versus vasospasm. Patient seen in the clinic today by Dr. Amador, where follow up imaging demonstrated worsening stability centered at C6/C7. Currently, patient admits to left index finger numbness/tingling, which presented after injury. Denies neck pain but admits to neck soreness. Denies any other upper extremity symptoms. Denies lower extremity pain, numbness/tingling. Denies bowel/bladder incontinence. Denies headaches, nausea, emesis, chest pain, palpitations, or shortness of breath. FUNCTIONAL STATUS: Independent PAST MEDICAL HISTORY Diagnosis Date - Age related osteoporosis - DEMETRA (acute kidney injury) (HCC) 08/18/2019 - Arthritis of both knees 03/08/2015 - Diarrhea - Diverticulosis of colon (without mention of hemorrhage) - Essential tremor 03/08/2016 - Hypercalcemia 03/13/2018 - Hyperparathyroidism, unspecified ([facility]) - Hypothyroidism, acquired 05/22/2020 - Irritable bowel syndrome - Osteopenia - Pill dysphagia - Sciatica - Secondary hyperparathyroidism ([facility]) 08/02/2010 - Vitamin B 12 deficiency 08/18/2019 - Vitamin D deficiency 01/19/2014 PAST SURGICAL HISTORY Procedure Laterality Date - ADENOIDECTOMY PRIMARY Adenoidectomy - COLONOSCOPY FLX DX W/COLLJ SPEC WHEN PFRMD 08/19/1999 Colonoscopy - COLONOSCOPY FLX DX W/COLLJ SPEC WHEN PFRMD 07/14/2009 Repeat in - COLONOSCOPY FLX DX W/COLLJ SPEC WHEN PFRMD 09/30/2019 Colonoscopy - PAST SURGICAL HISTORY OF Bilateral partial knee replacemenet - TONSILLECTOMY PRIMARY/SECONDARY Tonsillectomy FAMILY HISTORY Problem Relation Age of Onset - Arthritis Mother - other (Dementia) Mother - Heart Father [place], bi-pass surgery X-2/diabetes - Headache Sister - Thyroid Sister - Calcium Disorder No Family History Social History Tobacco Use - Smoking status: Never Smoker - Smokeless tobacco: Never Used Substance Use Topics - Alcohol use: Yes Comment: Occasionally wine - Drug use: No COMPLETE REVIEW OF SYSTEMS: PAIN ASSESSMENT: Neck soreness GENERAL: Negative for fever, chills HEENT: Negative for frequent or significant headaches NECK: positive for soreness RESPIRATORY: Negative for cough, hemoptysis, wheezing, COPD, dyspnea or shortness of breath CARDIOVASCULAR: Negative for chest pain, leg swelling, hypertension, CHF or palpitations GI: No nausea, vomiting, or diarrhea : No history of dysuria, frequency or incontinence MUSCULOSKELETAL: neck soreness ENDOCRINE: Admits to cold intolerance NEURO: SEE HPI Objective MEDS: acetaminophen (TYLENOL EXTRA STRENGTH) 500 mg tablet, Take 500 mg by mouth every 8 hours as needed., Disp: , Rfl: levothyroxine (SYNTHROID) 25 mcg tablet, Take 1 tablet by mouth once daily. Take on empty stomach. For thyroid., Disp: 90 tablet, Rfl: 3 aspirin 81 mg chewable tablet, Take 1 tablet by mouth once daily., Disp: 30 tablet, Rfl: 2 Alendronate Sodium (FOSAMAX) 70 mg/75 mL solution, Take 75 mL by mouth one time a week., Disp: 300 mL, Rfl: 11 MEDICATION, NON-DATABASE, Levothyroxine 25 mcg ProOmega Liquid - 1 tsp daily L-Glutamine Powder - 1 tsp twice daily Digestive Enzymes Ultra - 1 capsule with small meal, 2 with large meal G.I. Detox - 1 capsule, 2 times a week Medi-Hasmukh 500mg - 1 capsule, 2 times a week Ortho Biotic Probiotic - 1 capsule daily Trifortify Waldo Gel - 1/4 tsp daily (will increase by 1/4 tsp each week up to 1 tsp daily) NAC 600 mg - Has not started yet. Was supposed to be started after she got to 3 capsules Medi-Hasmukh. (Patient not taking: Reported on 06/09/2021 ), Disp: , Rfl: TriFortify Waldo Gel (Researched Nutritionals), Squeeze tube to fill 1 teaspoon, then swallow twice daily as tolerated Start with 1/4 tsp, Disp: , Rfl: Probiotic 50B (Pure Encapsulations), Take 1 capsule daily, Disp: , Rfl: ProOmega Liquid ([place] Naturals), Take one teaspoonful daily with food, Disp: , Rfl: MEDICATION, NON-DATABASE, Take 1 tablet by mouth once daily. MagEnhance (Magnesium) (Patient not taking: Reported on 07/07/2021 ), Disp: , Rfl: No current facility-administered medications for this encou (more content not included)... Normal [facility] XR CERV GENERAL 2V AP/LATon 07-07-2021 [facility] XR CERVICAL 2V AP/LATon 06-09 XR CERVICAL 2V AP/LAT * * *Final Report* * * DATE OF EXAM: Jul 07 2021 12:47PM [id number] - XR CERVICAL 2V AP/LAT / PROCEDURE REASON: Closed nondisplaced fracture of seventh cervical vertebra, unspecified fracture * * * * Physician Interpretation * * * * EXAM TITLE: XR CERVICAL 2V AP/LAT DATE: 07/07/2021 INDICATION: Follow-up C6 and C7 facet fractures. COMPARISON: CT scan dated 06/20/2021, MRI dated 06/21/2021, and plain films dated 06/22/2021. AP and lateral views of the cervical spine are very limited due to patient positioning. On the AP view, patient's neck is held in left lateral flexion. Alignment is otherwise normal. On lateral view, there is overlap of bony structures. Again noted is anterolisthesis of C4 on C5 now there is questionable anterolisthesis of C6 on C7. Vertebral soft tissues are grossly unremarkable. IMPRESSION: Very limited study due to difficulty in positioning patient. There is question of anterolisthesis of C6 on C7. This is at the level patient's known facet fractures. Repeat CT scan would be most helpful to more carefully delineate alignment and assess for any change in fractures at the C6-7 level. Neonatologist: LAURA Transcribe Date/Time: Jul 07 2021 5:07P Dictated by : FREDI TSANG MD This examination was interpreted and the report reviewed and electronically signed by: FREDI TSANG MD on Jul 07 2021 5:13PM EST [id number] Normal [facility] XR CHEST 1V FRONTALon 2021 XR CHEST 1V FRONTAL * * *Final Report* * * DATE OF EXAM: Jul 07 2021 5:39PM [id number] - XR CHEST 1V FRONTAL / PROCEDURE REASON: Shortness of breath * * * * Physician Interpretation * * * * EXAMINATION: CHEST RADIOGRAPH (SINGLE VIEW AP OR PA) CLINICAL HISTORY: Shortness of breath MQ: XC1_5 Comparison: No previous chest x-rays to compare with. Correlation is made with chest CT dated 06/20/2021. RESULT: Lines, tubes, and devices: None. Lungs and pleura: No consolidation. No lung mass. No pleural effusion. Small calcified lymph nodes are seen at the left hilar area. Cardiomediastinal silhouette: Normal cardiomediastinal silhouette. Other: Osteopenia. IMPRESSION: No acute radiographic abnormality. Small calcified lymph nodes at the left hilar area that may represent sequela of old granulomatous process. Clinical correlation is recommended. Neonatologist: PSCB Transcribe Date/Time: Jul 07 2021 5:56P Dictated by : RANDY SCHWAB MD This examination was interpreted and the report reviewed and electronically signed by: RANDY SCHWAB MD on Jul 07 2021 6:37PM EST [id number] [facility] HNO ID: [id number] Author: Chaplain Windy Service: ? Author Type: Mixer Diamond Powder Type: Allied Health Filed: 06/22/2021 1:08 PM Note Text: SPIRITUAL CARE PROGRESS NOTE SERVICE DATE: 06/22/2021 SERVICE TIME: 8:30am Mixer Diamond Powder Rounds: Checked in on the patient as per her cafeteria attendant's request. Patient talked about her fall and possible surgery. I prayed with patient and her and provided words of comfort. To contact the Spiritual Care Department: Please call [phone]. SIGNATURE: Chaplain Windy PATIENT NAME: Fiona Gruber DATE: June 22, 2021 TIME: 1:05 PM PAGER/CONTACT #: [phone] [facility] HNO ID: [id number] Author: RT Warren(R) Service: Radiology Author Type: Technologist Type: Allied Health Filed: 06/22/2021 11:59 AM Note Text: Radiology Service Progress Note PATIENT NAME: Fiona Gruber DATE OF SERVICE: June 22, 2021 TIME: 11:45 AM PATIENT IDENTITY VERIFICATION COMPLETED USING TWO (2) IDENTIFIERS: Name and Date of confirmed by patient verbally and Name and Date of confirmed by identification band. FALL SCREENING: Has the patient had 2 falls in the last year or 1 fall with injury or currently using an Ambulatory Assistive Device (Walker, Cane, Wheelchair, Crutches, etc.)? Inpatient: Screened on floor PATIENT GENDER DATA: Female. status: : No status: NO. PATIENT RELEVANT IMPLANT DATA REVIEWED: Not Applicable RADIOLOGY DEPARTMENT: General X-ray: Exam(s) Completed: Spine X-Ray(s): Cervical AP / LAT PERIPHERAL IV DATA: Not applicable SIGNED BY: Darlene Drake RT(R) June 22, 2021 11:45 AM Normal [facility] Basic metabolic 2000 panelon 06-22-2021 Anion gap [Moles/Vol] 9 mmol/L Normal 9-18 [facility] Comment on above: Order Comment: Speci men Type: BLOOD SPECIMENOrdering Facility: [facility] Address: [address] [place] [address] Performed By: #### 1 3317-3 #### [facility] CLIA [id number] [address] [place] [address] [place] Calcium [Mass/Vol] 8.9 mg/dL Normal 8.5-10.2 [facility] Comment on above: Order Comment: Speci men Type: BLOOD SPECIMENOrdering Facility: [facility] Address: [address] [place] [address] Performed By: #### 1 3317-3 #### [facility] CLIA [id number] [address] [place] [address] [place] Chloride [Moles/Vol] 105 mmol/L Normal 97-105 [facility] Comment on above: Order Comment: Speci men Type: BLOOD SPECIMENOrdering Facility: [facility] Address: [address] [place] [address] Performed By: #### 1 3317-3 #### [facility] CLIA [id number] [address] [place] [address] [place] CO2 [Moles/Vol] 25 mmol/L Normal 22-30 [facility] Comment on above: Order Comment: Speci men Type: BLOOD SPECIMENOrdering Facility: [facility] Address: [address] [address] Performed By: #### 1 3317-3 #### [facility] CLIA [id number] [address] [place] Creatinine [Mass/Vol] 0.62 mg/dL Normal 0.58-0.96 [facility] Comment on above: Order Comment: Speci men Type: BLOOD SPECIMENOrdering Facility: [facility] Address: [address] [place] [address] Performed By: #### 1 3317-3 #### [facility] CLIA [id number] [address] ESTIMATED GLOMERULAR FILTRATION RATE 90 mL/min/1.73m??? Normal >=60 [facility] Comment on above: Order Comment: Speci men Type: BLOOD SPECIMENOrdering Facility: [facility] Address: [address] [place] [address] Result Comment: Lawanda mated Glomerular Filtration Rate (eGFR) is calculated using the 2020 CKD-EPI creatinine equation. This equation utilizes serum creatinine, sex, and age as parameters. The creatinine assay has traceable calibration to isotope dilution-mass spectrometry. Refer to KDIGO guidelines for clinical interpretation. In patients with unstable renal function, e.g. those with acute kidney injury, the eGFR may not accurately reflect actual GFR. Performed By: #### 1 3317-3 #### [facility] CLIA [id number] [address] [place] Glucose [Mass/Vol] 106 mg/dL High 74-99 [facility] Comment on above: Order Comment: Speci men Type: BLOOD SPECIMENOrdering Facility: [facility] Address: [address] [address] Result Comment: The [place] Diabetes Association (ADA) provides guidance for cutoff values for fasting glucose and random glucose. The ADA defines fasting as no caloric intake for at least 8 hours. Fasting plasma glucose results between 100 to 125 mg/dL indicate increased risk for diabetes (prediabetes). Fasting plasma glucose results greater than or equal to 126 mg/dL meet the criteria for diagnosis of diabetes. In the absence of unequivocal hyperglycemia, results should be confirmed by repeat testing. In a patient with classic symptoms of hyperglycemia or hyperglycemic crisis, random plasma glucose results greater than or equal to 200 mg/dL meet the criteria for diagnosis of diabetes. Reference: Standards of Medical Care in Diabetes 2016, [place] Diabetes Association. Diabetes Care. 2016.39(Suppl 1). Performed By: #### 1 3317-3 #### [facility] CLIA [id number] [address] [place] [address] [place] Potassium [Moles/Vol] 3.7 mmol/L Normal 3.7-5.1 [facility] Comment on above: Order Comment: Speci men Type: BLOOD SPECIMENOrdering Facility: [facility] Address: [address] [place] [address] Performed By: #### 1 7-3 #### [facility] CLIA [id number] [address] [place] [address] [place] [facility] Sodium [Moles/Vol] 139 mmol/L Normal 136-144 [facility] Comment on above: Order Comment: Ruthi men Type: BLOOD SPECIMENOrdering Facility: [facility] Address: [address] [place] [address] Performed By: #### 1 7-3 #### [facility] CLIA [id number] [address] [place] Urea nitrogen [Mass/Vol] 10 mg/dL Normal 7-21 [facility] Comment on above: Order Comment: Speci men Type: BLOOD SPECIMENOrdering Facility: [facility] [facility] Address: [address] [place] [address] Performed By: #### 1 7-3 #### [facility] CLIA [id number] [address] OF [place] CASE MANAGEMon 06-22-2021 CASE MANAGEM HNO ID: [id number] Author: RANDA Araujo Service: ? Author Type: Research Greenhouse Supervisor Type: Care Mgt Progress Note Filed: 06/22/2021 3:54 PM Note Text: CARE MANAGEMENT DISCHARGE NOTE SERVICE DATE: 06/22/2021 SERVICE TIME: 3:49 PM LOS: 2 days Admission Date: 06/20/2021 DISCHARGE ARRANGEMENT (list agency and phone number) Discharge Arrangement: Home with Home Health Provider Name: [facility] CAREGIVER ASSESSMENT: Caregiver is ready, willing and able to meet the patient's needs as recommended by the inter-professional team:: Yes Does the patient have an acute stroke diagnosis, or has the patient had a stroke during this admission?: No Patient's transition needs and plan for meeting these needs: home with HHC- [facility] and spouse support HANDOFF COMMUNICATION: Handoff to: Primary Care Physician;Other Caregiver Primary Care Physician Name/Phone: summary of care to PCP Other Caregiver Name/Phone: [facility] TRANSPORTATION ARRANGEMENTS: Transportation Arrangements: Car ADDITIONAL CONTACT RESOURCES: PT/OT were consulted and recommended acute rehab. Pt and spouse have declined AR LOC and are requesting to return home. SULTANA spoke with ICT ACCOUNT MANAGER and there are no concerns with pt's dc plan. Pt would benefit from AR however has a safe dc plan. SULTANA met with the pt and spouse. Provided FOC for HHC. Referrals sent. [facility] declined. [facility] accepted. SULTANA updated the pt and spouse on [facility]. Final HCO sent to agency. Pt's spouse will transport home. There are no dc concerns. SIGNATURE: RANDA Araujo PATIENT NAME: Fiona Gruber DATE: June 22, 2021 TIME: 3:49 PM PAGER/CONTACT #: [phone] Normal [facility] CBC panel Auto (Bld)on 06-22 Erythrocyte distribution width (RBC) [Ratio] 14.3 % Normal 11.5-15.0 [facility] Comment on above: Order Comment: Speci men Type: BLOOD SPECIMENOrdering Facility: [facility] Address: [address] [place] [id number] Performed By: #### 5 8410-2 ####[facility] [id number] [place] [address] Hematocrit (Bld) [Volume fraction] 40.2 % Normal 36.0-46.0 [facility] Comment on above: Order Comment: Speci men Type: BLOOD SPECIMENOrdering Facility: [facility] Address: [address] [place] [address] Performed By: #### 5 8410-2 ####[facility] [id number] [address] OF [facility] Hemoglobin (Bld) [Mass/Vol] 13.1 g/dL Normal 11.5-15.5 [facility] Comment on above: Order Comment: Speci men Type: BLOOD SPECIMENOrdering Facility: [facility] Address: [address] [place] [address] Performed By: #### 5 8410-2 ####[facility] [id number] [address] MCH (RBC) [Entitic mass] 28.1 pg Normal 26.0-34.0 [facility] Comment on above: Order Comment: Speci men Type: BLOOD SPECIMENOrdering Facility: [facility] Address: [address] [place] [address] Performed By: #### 5 8410-2 ####[facility] [id number] [address] [place] MCHC (RBC) [Mass/Vol] 32.6 g/dL Normal 30.5-36.0 [facility] Comment on above: Order Comment: Speci men Type: BLOOD SPECIMENOrdering Facility: [facility] Address: [address] [place] [address] Performed By: #### 5 8410-2 ####[facility] [id number] [address] MCV (RBC) [Entitic vol] 86.3 fL Normal 80.0-100.0 [facility] Comment on above: Order Comment: Speci men Type: BLOOD SPECIMENOrdering Facility: [facility] Address: [address] [place] [address] Performed By: #### 5 8410-2 ####[facility] [id number] [address] OF [place] Nucleated RBC (Bld) [#/Vol] 10*3/uL Normal <0.01 [facility] Comment on above: Order Comment: Speci men Type: BLOOD SPECIMENOrdering Facility: [facility] Address: [address] [place] [address] Performed By: #### 5 8410-2 ####[facility] [id number] [address] [place] Platelet mean volume (Bld) [Entitic vol] 11.9 fL Normal 9.0-12.7 [facility] Comment on above: Order Comment: Speci men Type: BLOOD SPECIMENOrdering Facility: [facility] Address: [address] [place] [address] Performed By: #### 5 8410-2 ####[facility]ORYCLIA [id number] [address] [place] Platelets (Bld) [#/Vol] 211 10*3/uL Normal 150-400 [facility] Comment on above: Order Comment: Speci men Type: BLOOD SPECIMENOrdering Facility: [facility] Address: [address] [place] [address] Performed By: #### 5 8410-2 ####[facility] [id number] [address] RBC (Bld) [#/Vol] 4.66 10*6/uL Normal 3.90-5.20 [facility] Comment on above: Order Comment: Speci men Type: BLOOD SPECIMENOrdering Facility: [facility] Address: [address] [place] [address] Performed By: #### 5 8410-2 ####[facility] [id number] [address] OF [place] WBC (Bld) [#/Vol] 9.62 10*3/uL Normal 3.70-11.00 [facility] Comment on above: Order Comment: Speci men Type: BLOOD SPECIMENOrdering Facility: [facility] Address: [address] [place] [address] Performed By: #### 5 8410-2 ####[facility]ORYCLIA [id number] [place] [address] [facility] CNDSon 06-22-2021 CNDS HNO ID: [id number] Author: Eli Nicholson MD Service: General Surgery Author Type: Physician Type: Discharge Summary Filed: 06/23/2021 11:04 PM Note Text: DISCHARGE SUMMARY PATIENT NAME: Fiona Gruber Code Status: Not on file Highest Readmission Risk Score: 11 The 30 day readmissions risk score is derived from an internally validated risk model which evaluates patient level characteristics, utilization history, medication orders and lab results up until the day of discharge. Patients with a score of 40 or above are considered highest risk for readmission. Specific patient level drivers will be listed at the bottom of the summary. Admission Information Admission Information ADMIT DATE: 06/20/2021 DISCHARGE DATE: 06/22/2021 MY DOCTORS AND MEDICAL TEAM: My Main Hospital Doctor: Myrna Bunn MD Primary Care Provider: Ashley Roberson MD My Medical Team Members: Treatment Team: Attending Provider: Myrna Bunn MD Consulting: Sahra Amador MD MY CONDITION AT DISCHARGE: Stable REASON I WAS IN THE HOSPITAL: Fall SUMMARY OF WHAT HAPPENED WHILE I WAS IN THE HOSPITAL: You were admitted at [facility] on 06/20/2021 following a fall. As part of your trauma evaluation you received CT scans of your neck, chest, abdomen, and pelvis as well as x-rays of your right shoulder. These images revealed fractures at C6 and C7. During your hospitalization you were seen by specialists in neurosurgery who obtained an MRI of your neck as well as special CT scans of the blood vessels in your neck. They determined that your fractures can be treated with a neck brace and you will not require surgery. You need to wear this neck brace at all times, including eating/sleeping/bathin g. The CT scan of the blood vessels in your neck showed a possible injury to your left vertebral artery. For this reason you should take a baby aspirin every day. In 3 months you should have another CT scan of the blood vessels in your neck with your primary care provider to see if this has healed. You were evaluated by physical and occupational therapy who recommended Acute Rehab but you and your declined rehab placement, preferring to return home. You will need to make follow up appointments with neurosurgery and your primary care provider. OTHER PROBLEMS/DIAGNOSIS: Active Problems: Closed nondisplaced fracture of sixth cervical vertebra (HCC) Closed nondisplaced fracture of seventh cervical vertebra (HCC) Closed fracture of transverse process of cervical vertebra (HCC) Resolved Problems: Fall OPERATIONS PERFORMED WHILE IN THE HOSPITAL: None IMPORTANT TEST/PROCEDURES: No procedures performed TEST RESULTS NOT AVAILABLE AT THIS TIME: No pending results Discharge Disposition Discharge Disposition: Home With Home Care Activity When You Leave the Hospital Limited to: Wear neck brace at all times Diet Instructions Resume your pre-hospital diet For Pain When You Leave the Hospital Some muscle ache can be expected for a day or two Use acetaminophen (Tylenol) as recommended on the bottle Call Your Doctor If You have a severe headache You have difficulty urinating or pain when urinating You have lightheadedness, fainting, or confusion You have pain and swelling in your legs, especially if it is only on one side and not the other You have pain with urination, cloudy urine or foul smelling urine You have persistent nausea/vomiting over 24 hours Your temperature is greater than 101F Follow Up Appointments Follow-Up Appointment When: In 2 weeks Patient/Parents to call for appointment?: Yes Sahra Amador MD [phone] [place] [address] PCP Requested Referral Follow-Up Appointment Mrs. Gruber will require a follow up CTA head/neck in 3 months to ensure resolution of possible left vertebral artery injury. She has been prescribed ASA 81mg daily x3 months. When: In 2 weeks Patient/Parents to call for appointment?: Yes Ashley Roberson MD [phone] [address] [place] [address] PCP Requested Referral Additional Provider to Provider Information: Active Problems: Closed nondisplaced fracture of sixth cervical vertebra (HCC) Closed nondisplaced fracture of seventh cervical vertebra (HCC) Closed fracture of transverse process of cervical vertebra (HCC) Resolved Problems: Fall Treatment Team: Attending Provider: Myrna Bunn MD Consulting: Sahra Amador MD Transitions of Care Critical Issues: SPECIALIST FOLLOW-UP: Neurosurgery, primary care provider LABS AND PROCEDURES PENDING AT DISCHARGE: No pending results. FOLLOW-UP APPOINTMENTS ALREADY SCHEDULED WITH A [facility] PROVIDER: Future Appointments Date Time Provider Department Center 07/04/2021 10:20 AM Ashley Roberson MD [facility] 07/18/2021 11:15 AM Rosangela Vaughn MD [facility] Chag ALLERGIES Allergen Reactions Amoxicil (more content not included)... Normal [facility] THERAPY NTon 06-22-2021 THERAPY NT HNO ID: [id number] Author: Elin Abreu OTR/L Service: Occupational Therapy Author Type: Occupational Therapist Type: Therapy (PT/OT/Speech/Resp) Filed: 06/22/2021 3:14 PM Note Text: Occupational Therapy Evaluation SERVICE DATE: 06/22/2021 SERVICE TIME: 1325 to 1345 ROOM: [place] [address] Recommended Discharge Disposition: Acute Rehab Recommended Discharge Disposition Comments: Pt states she would like to return home today or tomorrow, states that her spouse will be able to assist as needed with ADLs/self-care/functio nal mobility. Pt currently demonstrating low activity tolerance due to pain and functioning significantly below her baseline and would benefit from intensive therapy. Reccomend acute rehab at discharge in order to maximize activity tolerance, ADL completion and functional mobility. If pt declines acute rehab, would reccomend 24 hour assist and home OT. Recommended Discharge Disposition Due to: Patient requires an active, intensive rehabilitation therapy program due to:;ADL impairment resulting in caregiver dependence;decline in functional status requiring daily skilled care OT 6 Clicks Score: 15 Pt supine in bed, agreeable to therapy. Educated pt on role of OT in acute care. Prior to bed mobility, pt stated pain 7/10 in neck/back/shoulder. Pt able to bring bilateral LEs off side of bed and trunk upright to sit EOB with verbal cues to adhere to precautions. Pt required assist at drawsheet in order to scoot hips toward EOB. Pt with increased pain upon sitting up, stated 10/10. Pt attempted to stand, was unable, requested to return to supine. Provided assist at bilateral LEs to bring legs back into bed. Boosted pt toward HOB with use of drawsheet. Pt declined completing oral hygiene, provided pt with toothbrush/toothpaste and kidney basin, educated pt on kidney basin use while brushing teeth while maintaining precautions and wearing collar. Discussed acute rehab with pt and spouse, pt states she would like to return home and feels that her spouse can provide adequate support and she can regain UE strength by lifting weights at home. Encouraged pt and spouse to consider going to acute rehab in order to be more independent with functional mobility. Pt stated understanding. Pt supine in bed with call light in reach and family at bedside. Precautions/Activity Restrictions: Spine;Brace Precaution/Activity Restriction Comments: C collar Current Hospital Course: Head CT negative, CT of cervical spine positive for C6 superior facet fx and C7 inferior facet fx, nondisplaced C7 transverse process fx, multilevel degenerated disc disease, and anterior syndesmophytes to C5-7. MRI positive for right paraspinous injury, stenosis and cord compression at C5-6. Reason for Hospital Admission: Fall at home, hit head/neck on lazliliana luanne on table Relevant Past Medical History: osteoporosis, DEMETRA, arthritis of knees, hypothyroidism, osteopenia, IBS, sciatica Response to Therapy Interventions: Good participation in activities, Low activity tolerance, Pain, Requires additional time to complete activities, Requires encouragement to complete activities Continue skilled needs due to: Functional impairment Occupational Therapy Problem List: Pain;Impaired Self Care;Decreased Activity Tolerance;Functional Mobility Impairment Cognition/Communicatio n Deficits Responsiveness: Alert, Awake Follows Commands: 2-step Commands Attention Deficits: Distractible Memory Deficits: Short Term Treatment Interventions: Education;Self Care / Home Management;Functional Mobility Training;Cognitive Training Home Environment Patient Lives With: Spouse Assistance Available: 24 Hour Entry To Home: With Rail;Stairs Number Of Stairs Into Home: 2 Number Of Stairs To Bed/Bath: 0 Tub/Shower Type: tub with extended tub bench Laundry: Basement, will complete Equipment Owned: Wheeled Walker;Extended tub bench Prior Functional Level: Within Functional Limits Prior Functional Level Comments: Prior to admission, patient was independent with ADLs and ambulated without device Patient Report: pt very pleasant and agreeable to therapy CURRENT FUNCTIONAL STATUS: Most recent performance Current Activities of Daily Living Assist Level Additional Information Feeding Set Up Grooming Minimal Assistance Bathing Upper Body Minimal Assistance Bathing Lower Body Moderate Assistance Dressing Upper Body Minimal Assistance Dressing Lower Body Moderate Assistance Toileting Moderate Assistance Functional Mobility Assist Level Additional Information Rolling Supine to Sit Minimal Assistance Sit to Supine Minimal Assistance Scooting Minimal Assistance Sit to Stand Pt attempted but unable to stand from EOB, increased pain/spasms in shoulder/back upon sitting up. Stand to Sit Bed to Chair Toilet/Commode Shower Functional Mobility Blank hill indicate activity not attempted Range of (more content not included)... Normal [facility] THERAPY NT HNO ID: [id number] Author: Marla Lee PT Service: Physical Therapy Author Type: Physical Therapist Type: Therapy (PT/OT/Speech/Resp) Filed: 06/22/2021 3:36 PM Note Text: Physical Therapy Evaluation SERVICE DATE: 06/22/2021 SERVICE TIME: 1115 to 1135 ROOM: [place] [address] ([facility]) Recommended Discharge Disposition: Acute Rehab Recommended Discharge Disposition Comments: Patient requires physical assist for transfers, ambulation, and ADLs Recommended Discharge Disposition Due to: Patient requires daily, facility-based rehabilitation from at least one discipline due to:;ADL impairment resulting in caregiver dependence Anticipated Discharge Needs: Physical Assist at Home Physical Assist at Home for: Cleaning;Laundry;Meals ;Self Care;Transfers PT 6 Clicks Score: 15 Mrs. Gruber required physical assistance for transfers and ambulation during today's evaluation. PT cued for proper body mechanics and hand placement during sit to stand transfers. Patient was undsteady on her feet upon standing and exhibited increased lateral sway and decreased speed with gait. Acute rehab placement is recommended due to physical assistance needed and functional mobility decificits noted. Precautions/Activity Restrictions: Spine;Brace Precaution/Activity Restriction Comments: C collar Current Hospital Course: Head CT negative, CT of cervical spine positive for C6 superior facet fx and C7 inferior facet fx, nondisplaced C7 transverse process fx, multilevel degenerated disc disease, and anterior syndesmophytes to C5-7. MRI positive for right paraspinous injury, stenosis and cord compression at C5-6. Reason for Hospital Admission: Fall at home, hit head/neck on lazy luanne on table Relevant Past Medical History: osteoporosis, DEMETRA, arthritis of knees, hypothyroidism, osteopenia, IBS, sciatica Response to Therapy Interventions: Good participation in activities Continue skilled needs due to: Functional mobility/skill impairments Physical Therapy Problem List: Functional Mobility Impairment Treatment Interventions: Functional Mobility Training Plan for next visit: Sit to Stand Transfers, Gait training Home Environment Patient Lives With: Spouse Assistance Available: 24 Hour Entry To Home: With Rail;Stairs Number Of Stairs Into Home: 2 Number Of Stairs To Bed/Bath: 0 Laundry: Basement, will complete Equipment Owned: Wheeled Walker Prior Functional Level: Within Functional Limits Prior Functional Level Comments: Prior to admission, patient was independent with ADLs and ambulated without device Patient Report: Patient reports feeling some pain in her right upper paraspinal, agreeable to therapy CURRENT FUNCTIONAL STATUS: Most recent performance Current Functional Mobility Assist Level Additional Information Rolling Independent Supine to Sit Contact Guard Assistance Sit to Supine Minimal Assistance Scooting Contact Guard Assistance Sit to Stand Moderate Assistance Stand to Sit Moderate Assistance Bed to Chair Toilet/Commode Gait Moderate Assistance Gait Device: Wheeled Walker Gait Distance (feet): 20 small shuffles steps, assisted to guide the walker to turn Stairs Curb Step Car Transfer Blank hill indicate activity not attempted General Deviations/Observation s: Lateral sway increased Range of Motion: WFL Strength: WFL Balance: Static Sitting;Static Standing;Dynamic Standing Static Sitting Balance: Good Patient able to maintain balance without handhold support, limited postural sway Static Standing Balance: Good Patient able to maintain balance without handhold support, limited postural sway Dynamic Standing Balance: Fair Patient accepts minimal challenge, able to maintain balance while turning head/trunk JH-HLM: 6: Walk 10 steps or more Learning/Educational Needs: Functional Activities/Mobility Goals for Plan of Care: Patient /Caregiver Goals: Go Home Goals: Patient will demonstrate understanding of importance of mobility during hospital stay and resolve all functional needs identified. Transfer sit to/from stand with: Contact Guard Assistance Ambulate with: Contact Guard Assistance Distance: 50 Device: Wheeled Walker Ambulate up and down steps with: Contact Guard Assistance Number of steps: 2 Device: Rail Rehab Potential: Good Patient will be discontinued from Physical Therapy when no further skilled needs are identified in this setting. PLAN: PT Frequency: 3 times per week (1-3) Plan of Care developed with: Patient TREATMENT INTERVENTIONS: Therapy Diagnosis: Unsteadiness on feet;Abnormalities of gait and mobility-other Interventions Provided: Evaluation $ Evaluation-Moderate (27673) Billed Units: 1 unit Training AND education provided in: Transfers, Benefits of in-hospital mobility The following therapeutic skills were used: Cuing verbal, Physical assist Skilled Treatment Time (minutes): 20 Please (more content not included)... Normal [facility] THERAPY NT HNO ID: [id number] Author: Germania Castro [facility]-SALES ASSISTANT Service: Speech/Swallow Author Type: Speech Language Pathologist Type: Therapy (PT/OT/Speech/Resp) Filed: 06/22/2021 9:26 AM Note Text: Speech Therapy Clinical Swallow Evaluation SERVICE DATE: 06/22/2021 SERVICE TIME: 854 to 909 ROOM: [place] [address] IMPRESSION: Swallow Deficits Identified / Suspected: Pharyngeal dysphagia Diet Recommendations: Regular Consistency Thin Liquids IDDSI Level 0 Swallowing Precautions Recommendations: Feed / Eat at a slow rate Sit upright 90 degrees for all PO Small Bite/Sip Nursing Recommendations: Reinforce use of swallowing strategies Recommended Discharge Disposition: Continued Skilled Speech Therapy Current Hospital Course: 06/20 CT Cervical Spine: minimal caliber change and luminal wall irregularity of left C6 and C7 extracranial first segment vertebral artery, comminuted left C6-7 facet fxs with some degree of slight sublaxation without overt perching or nonarticulation, nondisplaced left C7 transverse process fx; CT Chest: no acute injury. 06/21 MRI Cervical Spine: acute left C6-7 facet joint fx, nuchal ligament and right paraspinous muscle injury, canal stenosis and cord compression at C5-6, severe foraminal stenosis at left C5-6 and C6-7 Reason for Hospital Admission: GLF Rehabilitation Precautions: Aspiration Precautions Reason for Speech Therapy Consult: Concern for dysphagia - cervical spine fx Relevant Past Medical History: Dysphagia to pills - chews them, essential tremor Response to Therapy Interventions: Good Participation in activities, Receptive Family / Caregivers Continue skilled SALES ASSISTANT services due to : Dysphagia Speech Therapy Problem List: Dysphagia Patient Report: I feel fine Current Status Oral Hygiene: Clear, moist oral cavity, Oral Health Assessment Tool (OHAT) Dentition: Retains Natural Dentition Current Feeding Method: Oral Current Diet Textures: Regular Consistency, Thin Liquids IDDSI Level 0 Current Level Of Communication: Verbal Current Management Of Secretions: Able to expectorate adequately Oral Motor Exam: Within Functional Limits Oral Health Assessment Tool (OHAT) Lips: 0 Tongue: 0 Gums and Tissues: 0 Saliva: 0 Natural Teeth: 0 Dentures: N/A Oral Cleanliness: 0 Dental Pain: 0 OHAT Total Score: 0 Swallow Assessment Position Of Patient During Assessment: Upright In Bed Consistencies Presented: Thin Liquids IDDSI Level 0, Pureed IDDSI Level 4, Solid Compensatory Strategies Utilized During Assessment: Feed / Eat at a slow rate, Sit upright 90 degrees for all PO, Small Bite/Sip Clinical Swallow Assessment Oral Pharyngeal Swallow Assessment: Preparatory / Oral Phase: Within Functional Limits Pharyngeal Phase: Reflexive Throat Clear and Cough after Swallowing: Yes -Patient alert, up in bed on SALES ASSISTANT arrival, agreeable to evaluation with present - + [place] collar, denied odynophagia or dysphonia, + prior dysphagia to pills -Able to feed self -Mastication timely for solids -No significant oral residuals post swallow -Laryngeal movement detected upon palpation of swallow -No cough, throat clear, or change in vocal quality with po trials - + Throat clear with attempt to complete 3 oz water challenge, required several breaks -Recommend diet and strategies as above -May benefit from instrumental assessment to further evaluate oropharyngeal swallow function as clinically indicated Functional Communication Measure (FCM) Current FCM Level: Swallowing Level FCM Swallowing Level: 6 Patient /Caregiver Goals: Eat/Drink Without Restrictions Goals for Plan of Care: Goals: SWALLOWING: Patient / Caregiver will demonstrate knowledge of taught compensatory strategies and dietary consistency recommendations to optimize functional swallow function without overt clinical signs and symptoms of aspiration or dysphagia Swallow Goals: Patient will tolerate Regular Consistency diet consistency while utilizing compensatory/swallowin g strategies given minimal cues in 90% of trials so that the patient will minimize the signs/symptoms of dysphagia. Patient will tolerate Thin Liquids IDDSI Level 0 consistency while utilizing compensatory/swallowin g strategies given minimal cues in 90% of trials so that the patient will minimize the signs/symptoms of dysphagia. Patient will demonstrate adequate return of knowledge of all compensatory strategies/instruction to effectively assist the patient in immediate safety with oral intake and swallowing. Speech Rehab Potential: Good Patient will be discontinued from speech therapy when no further skilled needs are identified in this setting. PLAN: ST Frequency: 1 time per week Treatment Interventions: Dysphagia Management Plan for next visit: Dysphagia Management, Swallowing Strategies Plan of Care Developed with: Family;Patient Results and Recommendations Discussed With: Patient;Fam (more content not included)... Normal [facility] XR CERVICAL 2V AP/LATon 06-07 XR CERVICAL 2V AP/LAT * * *Final Report* * * DATE OF EXAM: Jun 22 2021 12:02PM [id number] - XR CERVICAL 2V AP/LAT / PROCEDURE REASON: C-spine fx, known * * * * Physician Interpretation * * * * EXAMINATION: XR CERVICAL 2V AP/LAT HISTORY: C-spine fx, known. Left C6 and C7 facet fractures, left C7 transverse process fracture. . COMPARISON: MRI cervical spine 06/21/2021, CT cervical spine 06/20/2021 TECHNIQUE: XR CERVICAL 2V AP/LAT Laterality: N/A Number of different views (projections): 2 M: XB_1 FINDINGS: C7 is obscured on the lateral view. C6 facet fracture does not appear significantly changed. There is widening of the C5-C6 facet joint on the right on the anterior view which could be positional. Slight anterolisthesis of C3 on C4 and C4 on C5. Degenerative endplate changes at C5-C6 and C6-C7. IMPRESSION: Left C6 facet fracture without significant change. Other cervical spine fractures not well seen. Widening of the right C5-C6 facet joint which could be positional. Neonatologist: PSCB Transcribe Date/Time: Jun 22 2021 12:16P Dictated by : KELTON DUBOIS MD This examination was interpreted and the report reviewed and electronically signed by: KELTON DUBOIS MD on Jun 22 2021 12:30PM EST [id number] Normal [facility] ALLIED HEALTHon 06-21-2021 ALLIED HEALTH HNO ID: [id number] Author: RT Samuel(Alvin) Service: Radiology Author Type: Technologist Type: Allied Health Filed: 06/21/2021 4:00 PM Note Text: Radiology Service Progress Note PATIENT NAME: Fiona Gruber DATE OF SERVICE: June 21, 2021 TIME: 4:00 PM PATIENT IDENTITY VERIFICATION COMPLETED USING TWO (2) IDENTIFIERS: Name and Date of confirmed by patient verbally and Name and Date of confirmed by identification band. FALL SCREENING: Has the patient had 2 falls in the last year or 1 fall with injury or currently using an Ambulatory Assistive Device (Walker, Cane, Wheelchair, Crutches, etc.)? Inpatient: Screened on floor PATIENT GENDER DATA: Female. status: : No status: N/A PATIENT RELEVANT IMPLANT DATA REVIEWED: Yes RADIOLOGY DEPARTMENT: MR; Exam(s) Completed: Spine: Cervical spine PERIPHERAL IV DATA: Not applicable SIGNED BY: RT Samuel(R) June 21, 2021 4:00 PM Normal [facility] ALLIED HEALTH HNO ID: [id number] Author: RT Tiarra(R) Service: ? Author Type: Rn Progressive Care Type: Allied Health Filed: 06/21/2021 2:10 PM Note Text: Radiology Service Progress Note PATIENT NAME: Fiona Gruber DATE OF SERVICE: June 21, 2021 TIME: 2:09 PM PATIENT IDENTITY VERIFICATION COMPLETED USING TWO (2) IDENTIFIERS: Name and Date of confirmed by patient verbally and Name and Date of confirmed by identification band. FALL SCREENING: Has the patient had 2 falls in the last year or 1 fall with injury or currently using an Ambulatory Assistive Device (Walker, Cane, Wheelchair, Crutches, etc.)? Inpatient: Screened on floor PATIENT GENDER DATA: Female. status: : No status: NO. PATIENT RELEVANT IMPLANT DATA REVIEWED: Not Applicable RADIOLOGY DEPARTMENT: General X-ray: Exam(s) Completed: Chest X-Ray PERIPHERAL IV DATA: Not applicable SIGNED BY: RT Tiarra(R) June 21, 2021 2:09 PM Normal [facility] Basic metabolic 2000 panelon 06-21-2021 Anion gap [Moles/Vol] 12 mmol/L Normal 9-18 [facility] Comment on above: Order Comment: Speci johanne Type: BLOOD SPECIMENOrdering Facility: [facility] Address: [address] [place] [address] Performed By: #### 9 4500-6 #### [facility] CLIA [id number] [address] [place] [address] [place] Calcium [Mass/Vol] 8.6 mg/dL Normal 8.5-10.2 [facility] Comment on above: Order Comment: Speci men Type: BLOOD SPECIMENOrdering Facility: [facility] Address: [address] [place] [address] Performed By: #### 9 4500-6 #### [facility] CLIA [id number] [address] Chloride [Moles/Vol] 104 mmol/L Normal 97-105 [facility] Comment on above: Order Comment: Speci men Type: BLOOD SPECIMENOrdering Facility: [facility] Address: [address] [place] [address] Performed By: #### 9 4500-6 #### [facility] CLIA [id number] [address] OF [facility] CO2 [Moles/Vol] 24 mmol/L Normal 22-30 [facility] Comment on above: Order Comment: Speci men Type: BLOOD SPECIMENOrdering Facility: [facility] Address: [address] [place] [address] Performed By: #### 9 4500-6 #### [facility] CLIA [id number] [address] Creatinine [Mass/Vol] 0.66 mg/dL Normal 0.58-0.96 [facility] Comment on above: Order Comment: Speci men Type: BLOOD SPECIMENOrdering Facility: [facility] Address: [address] [place] [address] Performed By: #### 9 4500-6 #### [facility] CLIA [id number] [address] ESTIMATED GLOMERULAR FILTRATION RATE 88 mL/min/1.73m??? Normal >=60 [facility] Comment on above: Order Comment: Speci men Type: BLOOD SPECIMENOrdering Facility: [facility] Address: [address] [place] [address] Result Comment: Lawanda mated Glomerular Filtration Rate (eGFR) is calculated using the 2020 CKD-EPI creatinine equation. This equation utilizes serum creatinine, sex, and age as parameters. The creatinine assay has traceable calibration to isotope dilution-mass spectrometry. Refer to KDIGO guidelines for clinical interpretation. In patients with unstable renal function, e.g. those with acute kidney injury, the eGFR may not accurately reflect actual GFR. Performed By: #### 9 4500-6 #### [facility] CLIA [id number] [address] [place] [address] [place] Glucose [Mass/Vol] 118 mg/dL High 74-99 [facility] Comment on above: Order Comment: Steph johanne Type: BLOOD SPECIMENOrdering Facility: [facility] Address: [address] [place] [address] Result Comment: The [place] Diabetes Association (ADA) provides guidance for cutoff values for fasting glucose and random glucose. The ADA defines fasting as no caloric intake for at least 8 hours. Fasting plasma glucose results between 100 to 125 mg/dL indicate increased risk for diabetes (prediabetes). Fasting plasma glucose results greater than or equal to 126 mg/dL meet the criteria for diagnosis of diabetes. In the absence of unequivocal hyperglycemia, results should be confirmed by repeat testing. In a patient with classic symptoms of hyperglycemia or hyperglycemic crisis, random plasma glucose results greater than or equal to 200 mg/dL meet the criteria for diagnosis of diabetes. Reference: Standards of Medical Care in Diabetes 2016, [place] Diabetes Association. Diabetes Care. 2016.39(Suppl 1). Performed By: #### 9 4500-6 #### [facility] CLIA [id number] [address] [place] [address] [place] Potassium [Moles/Vol] 4.0 mmol/L Normal 3.7-5.1 [facility] Comment on above: Order Comment: Steph johanne Type: BLOOD SPECIMENOrdering Facility: [facility] Address: [address] [address] Performed By: #### 9 4500-6 #### [facility] CLIA [id number] 1 [place] [address] [place] Sodium [Moles/Vol] 140 mmol/L Normal 136-144 [facility] Comment on above: Order Comment: Steph johanne Type: BLOOD SPECIMENOrdering Facility: [facility] Address: [address] [place] [address] Performed By: #### 9 4500-6 #### [facility] CLIA [id number] [address] [place] [id number] [place] Urea nitrogen [Mass/Vol] 12 mg/dL Normal 7-21 [facility] Comment on above: Order Comment: Speci men Type: BLOOD SPECIMENOrdering Facility: [facility] Address: [address] [place] [address] [place] [address] Performed By: #### 9 4500-6 #### [facility] CLIA [id number] [address] [place] [id number] [place] CASE MGT INIT ASSESon 2021 CASE MGT INIT ASSES HNO ID: [id number] Author: RANDA Araujo Service: ? Author Type: Research Greenhouse Supervisor Type: Care Mgt Initial Assessment Filed: 06/21/2021 11:50 AM Note Text: CARE MANAGEMENT: ASSESSMENT AND DISCHARGE PLAN SERVICE DATE: June 21, 2021 SERVICE TIME: 11:46 AM PRIMARY CARE PHYSICIAN: Ashley Roberson MD ADMISSION STATUS: Inpatient Needs Prior to Discharge: To Be Determined;OT/PT Evaluation MEDICAL: [employer] MEDICARE HMO Patient/Circular [place] Stated Goals: To have reduction in symptoms;To improve my functional status;To return home to life as it was;To have reduction in pain Health Insurance: [facility] Medicare Health Issues Impacting Discharge Plan: Newly diagnosed;Chronic Newly Diagnosed: Cervical spine fx. Chronic: Osteopenia, osteoporosis, hypertension, arthritis Last Discharge Date: 09/30/19 Is this Within the Past 30 days? 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 : 1 - Never How confident are you filling out medical forms by yourself?: 1 - Extremely If Patient scores > 3 on either question, the following interventions were put into place:: Patient did not score > 3 on either question. Baseline Mental Status Prior to this Illness what was the patient's Baseline Mental Status?: Alert AND Oriented Prior to this illness, has anyone described the patient having any of the following behaviors?: Not Applicable Relationship of the informant to the patient:: Self Functional Status: Independent Does Patient Currently Receive Any Community Services or Home Care?: None Equipment Prior to Admission: Walker;Tub bench/chair;Cane (Pt does not use any DME at baseline) Has the Patient Been in a Fpc Facility in the Past 30 days?: No SOCIAL: Living Arrangements: Home Lives With: Spouse Financial Resources: Retired Primary Contact: Extended Emergency Contact Information Primary Emergency Contact: Dong Gruber Mobile Relation: Spouse Supportive Patient Contact:: Yes Contact Resources: Family Family Name/Phone: spouse Caregiver AssessmentCaregiver is ready, willing and able to meet the patient's needs as recommended by the inter-professional team:: Yes Does the patient have an acute stroke diagnosis, or has the patient had a stroke during this admission?: No Patient's transition needs and plan for meeting these needs: Pt would like to return home with spouse, self care. DC plan TBD Patient's perception of need for this admission: fall with cervical spine fx Medication Adherance I am convinced of the importance of my prescription medication: 0 - Agree Completely I worry that my prescription medication will do more harm than good to me : 0 - Disagree Completely I feel financially burdened by my crd-vy-hxscnh expenses for my prescription medication:: 0 - Disagree Completely Risk Score: 0 Patient is categorized as: Low risk < 2 Are you interested in bedside delivery of your medications? No Is Patient Psychosocially Complex?: No ASSESSMENT AND PLAN: Medical Needs: Medical Needs: Two or more chronic diseases;Fall risk or frequent falls Psychosocial Needs: Psychosocial Needs: None FREEDOM OF CHOICE EXPLAINED: POTENTIAL TRANSITION PLANS To Be Determined;Home Care;Fpc Facility/Intermediate Care Facility (Pending PT/OT recs) Pt presented to the hospital after she fell at home. Pt with a cervical spine fx. MRI pending +PCP, +RX, +DME although does not use DME at baseline. 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 Pt was independent with mobility and self care. Pt does not drive any longer but spouse does. There are no social concerns. Pt was not active with any services 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 Pt is hopeful to return home at dc. She is aware that PT/OT recommendations are pending and SW will assist with dc planning, once it is more clear what her needs will be. MRI is pending. SULTANA/RUDY to follow. SIGNATURE: RANDA Araujo PATIENT NAME: Fiona Gruber DATE: June 21, 2021 TIME: 11:46 AM PAGER/CONTACT #: [phone] Normal [facility] CBC panel Auto (Bld)on 06-21 Erythrocyte distribution width (RBC) [Ratio] 14.2 % Normal 11.5-15.0 [facility] Comment on above: Order Comment: Speci men Type: BLOOD SPECIMENOrdering Facility: [facility] Address: [address] [place] [address] Performed By: #### 5 8410-2 ####[facility] [id number] [address] Hematocrit (Bld) [Volume fraction] 40.9 % Normal 36.0-46.0 [facility] Comment on above: Order Comment: Speci men Type: BLOOD SPECIMENOrdering Facility: [facility] Address: [address] [place] [address] Performed By: #### 5 8410-2 ####[facility] [id number] [address] [place] Hemoglobin (Bld) [Mass/Vol] 13.2 g/dL Normal 11.5-15.5 [facility] Comment on above: Order Comment: Speci men Type: BLOOD SPECIMENOrdering Facility: [facility] Address: [address] [place] [address] Performed By: #### 5 8410-2 ####[facility] [id number] [address] [place] MCH (RBC) [Entitic mass] 28.0 pg Normal 26.0-34.0 [facility] Comment on above: Order Comment: Speci men Type: BLOOD SPECIMENOrdering Facility: [facility] Address: [address] [place] [address] Performed By: #### 5 8410-2 ####[facility] [id number] [place] [address] [place] MCHC (RBC) [Mass/Vol] 32.3 g/dL Normal 30.5-36.0 [facility] Comment on above: Order Comment: Speci men Type: BLOOD SPECIMENOrdering Facility: [facility] Address: [address] [place] [address] Performed By: #### 5 8410-2 ####[facility] [id number] [place] [address] [place] MCV (RBC) [Entitic vol] 86.8 fL Normal 80.0-100.0 [facility] Comment on above: Order Comment: Speci men Type: BLOOD SPECIMENOrdering Facility: [facility] Address: [address] [place] [address] Performed By: #### 5 8410-2 ####[facility] [id number] [address] STATES OF [facility] Nucleated RBC (Bld) [#/Vol] 10*3/uL Normal <0.01 [facility] Comment on above: Order Comment: Speci men Type: BLOOD SPECIMENOrdering Facility: [facility] Address: [address] [place] [address] Performed By: #### 5 8410-2 ####[facility] [id number] [address] [place] Platelet mean volume (Bld) [Entitic vol] 11.8 fL Normal 9.0-12.7 [facility] Comment on above: Order Comment: Speci men Type: BLOOD SPECIMENOrdering Facility: [facility] Address: [address] [place] [address] Performed By: #### 5 8410-2 ####[facility] [id number] [address] [place] Platelets (Bld) [#/Vol] 208 10*3/uL Normal 150-400 [facility] Comment on above: Order Comment: Speci men Type: BLOOD SPECIMENOrdering Facility: [facility] Address: [address] [place] [address] Performed By: #### 5 8410-2 ####[facility]IA [id number] [address] OF [facility] RBC (Bld) [#/Vol] 4.71 10*6/uL Normal 3.90-5.20 [facility] Comment on above: Order Comment: Speci men Type: BLOOD SPECIMENOrdering Facility: [facility] Address: [address] [place] [address] Performed By: #### 5 8410-2 ####[facility] [id number] [address] WBC (Bld) [#/Vol] 10.36 10*3/uL Normal 3.70-11.00 [facility] Comment on above: Order Comment: Speci men Type: BLOOD SPECIMENOrdering Facility: [facility] Address: [address] [place] [address] Performed By: #### 5 8410-2 ####[facility] [id number] [address] ED NOTEon 06-21-2021 ED NOTE HNO ID: [id number] Author: Joan Henley RN Service: Emergency Medicine Author Type: Registered Nurse Type: ED Notes Filed: 06/20/2021 11:47 PM Note Text: MRI filled out by patient and faxed to MRI at this time. Normal [facility] ED PROV NOTEon 06-21-2021 ED PROV NOTE HNO ID: [id number] Author: Kodi Carrera MD Service: Emergency Medicine Author Type: Resident Type: ED Provider Notes Filed: 06/20/2021 11:55 PM Note Text: Attestation signed by Fredi Cuenca MD at 06/21/2021 3:57 PM Attending Note I evaluated the patient and personally participated in the aparicio components. I agree with the resident's findings and plan as documented and have discussed the case and management of the patient's care with the resident. Patient is transferred here from [facility] for evaluation of a C6-C7 fracture she sustained in a mechanical fall. She is not on any blood thinners. [facility] did not have a capacity to take care of of a cervical fracture so she was sent here for evaluation because of her injury she was made a level 2 trauma. On initial evaluation with the trauma team patient's awake alert noted x3 and appropriate GCS is 15 her airway is intact and patent vital signs as documented and stable. Lungs are clear and equal heart regular rate and rhythm without murmurs gallops rubs abdomen soft nontender without guarding rebound mass or distention extremities no clubbing cyanosis or edema there is no long bone deformity or tenderness. There was some decrease sensation to the left upper extremity relatively diffusely. Strength was normal. Patient was tender palpation lower C-spine. [place] collar was placed with trauma. Patient was endorsed to the trauma team for admission. Critical Care I spent a total of 30 minutes of critical care time in the evaluation and management of this patient. This was necessary to treat or prevent deterioration of the following condition(s): level 2 trauma team, which the patient had and/or has a high probability of suddenly developing. The patient received Consultation by level 2 team team during the time that critical care was provided.I discussed the plan of care with the RESIDENT and agree with the findings documented. Critical care time excludes separately billed procedures. Fredi Cuenca MD Clinical Impressions as of 06/21/21 1555 Fall, initial encounter Other closed nondisplaced fracture of sixth cervical vertebra, initial encounter ([facility]) Signature: Fredi Cuenca MD Date: 06/21/2021 Time: 3:55 PM ED Provider Note Patient Name: Fiona Gruber : 1940 SERVICE DATE: 06/20/21 History No chief complaint on file. Patient is a 81-year-old female presenting due to a fall today. She is a transfer from outside hospital and she has concern for C6-C7 fracture was identified on CT imaging. No other imaging was performed. She is on any blood thinners. She complains of pain in the back of her spine near her neck but no other pain. No LOC from the fall. She does report some minor numbness on the first and second digit on the left hand. PAST MEDICAL HISTORY Diagnosis Date - Age related osteoporosis - DEMETRA (acute kidney injury) ([facility]) 08/18/2019 - Arthritis of both knees 03/08/2015 - Diarrhea - Diverticulosis of colon (without mention of hemorrhage) - Essential tremor 03/08/2016 - Hypercalcemia 03/13/2018 - Hyperparathyroidism, unspecified ([facility]) - Hypothyroidism, acquired 05/22/2020 - Irritable bowel syndrome - Osteopenia - Pill dysphagia - Sciatica - Secondary hyperparathyroidism ([facility]) 08/02/2010 - Vitamin B 12 deficiency 08/18/2019 - Vitamin D deficiency 01/19/2014 PAST SURGICAL HISTORY Procedure Laterality Date - ADENOIDECTOMY PRIMARY Adenoidectomy - COLONOSCOPY FLX DX W/COLLJ SPEC WHEN PFRMD 08/19/1999 Colonoscopy - COLONOSCOPY FLX DX W/COLLJ SPEC WHEN PFRMD 07/14/2009 Repeat in -2019 - COLONOSCOPY FLX DX W/COLLJ SPEC WHEN PFRMD 09/30/2019 Colonoscopy - PAST SURGICAL HISTORY OF Bilateral partial knee replacemenet - TONSILLECTOMY PRIMARY/SECONDARY Tonsillectomy FAMILY HISTORY Problem Relation Age of Onset - Arthritis Mother - other (Dementia) Mother - Heart Father [place], bi-pass surgery X-2/diabetes - Headache Sister - Thyroid Sister - Calcium Disorder No Family History Social History Tobacco Use - Smoking status: Never Smoker - Smokeless tobacco: Never Used Substance and Sexual Activity - Alcohol use: Yes Comment: Occasionally wine - Drug use: No - Sexual activity: Yes Partners: Male Comment: POST MENOPAUSAL ALLERGIES Allergen Reactions - Amoxicillin Hives GI upset - Fall Allergy [Other] - Penicillins Hives Review of Systems Constitutional: Negative for chills, diaphoresis, fatigue and fever. HENT: Negative for ear pain, postnasal drip, rhinorrhea, sinus pain and sore throat. Eyes: Negative for pain, discharge and visual disturbance. Respiratory: Negative for chest tightness, shortness of breath and stridor. Cardiovascular: Negative for ch (more content not included)... Normal [facility] HIGH SENSITIVITY TROPONIN To n 06-21-2021 HIGH SENSITIVITY EMRE 48 ng/L High <12 [facility] Comment on above: Order Comment: Speci men Type: BLOOD SPECIMENOrdering Facility: [facility] Address: [address] [place] [address] Result Comment: When assessing risk for acute coronary syndromes: In patients undergoing blood draw greater than or equal to 2 hours from symptom onset, with history of very low to moderate risk and non-ischemic ECG, an initial hs-Troponin T less than 12 ng/L AND a 1 hour delta hs-Troponin T less than 3 ng/L should be considered very low risk for 30 day MACE. Performed By: #### 1 3317-3 #### [facility] CLIA [id number] [address] OF [facility] HISTORY PHYSICALon 2 HISTORY PHYSICAL HNO ID: [id number] Author: Anshu Cardoso MD Service: General Surgery Author Type: Resident Type: HANDP Filed: 06/21/2021 12:29 AM Note Text: Attestation signed by Myrna Bunn MD at 07/13/2021 5:01 PM Trauma Attending Note I have personally seen and evaluated this patient and participated in the aparicio components of this encounter. I discussed the management of this case with the surgery resident team and independently confirmed the findings and plan of care as documented either attached or in their separate note from today. Any corrections or additional notes are made as needed. I evaluated the patient on June 20, 2021 and 2119 pm. Assessment and Plan: Fiona Gruber is a 81 year old female evaluated following a Level 2 activation for ground level fall The patient was evaluated according to ATLS protocols. Injuries and diagnoses are notable for: Ground level fall C6/C7 fx with subluxation R supra-clavicular hematoma C7 transverse process fx Questionable vertebral artery injury versus vasospasm Admit, MRI spine consult, c-collar and precautions, Will likely need geriatric consult, home synthroid, vitamin D level Myrna Bunn MD Delayed entry TRAUMA SURGERY [facility] DATE: 06/20/2021 ARRIVAL TIME: 2127 CATEGORY: Level 2 INJURY DATE: 06/20/2021 INJURY TIME: 4 pm Subjective 81 year old female with a history of microhemorrhages, Essential tremor, Hypothyroidism, IBS, Osteopenia who presented to an outside ED as a ground level fall. Patient was in the kitchen when she had fallen. No LOC but did hit her head. She is not on any blood thinners. She was taken to an outside ED where imaging revealed a comminuted left C6 and C7 facet fractures with some subluxation. She was also complaining of left thumb and index finger numbness. She was brought by EMS as a level 2. In the ED the patient is does not complain of much aside from the previous noted numbness and cervical neck pain. She denies any CP, SOB, abdominal pain or weakness of the extremities. CT Brain at outside ED was negative for brain bleed. GCS at Scene was 15. HPI/CHIEF COMPLAINT: GLF BRIEF DESCRIPTION OF INJURIES: - Comminuted left C6 and C7 facet fractures with some degree of slight subluxation without overt perching or non articulation - Non-displaced Left C7 Transverse Process Fx - Right supraclavicular fat stranding/soft tissue hematoma without associated fracture or arterial injury. LAST FLUIDS/MEAL: uknown CODE STATUS: Not discussed ALLERGIES Allergen Reactions - Amoxicillin Hives GI upset - Fall Allergy [Other] - Penicillins Hives (Not in a hospital admission) DATE OF LAST TETANUS: uknown Immunization History Administered Date(s) Administered COVID-19 vaccine, full dose (MODERNA) 04/29/2020 06/09/2020 06/09/2020 02/01/2021 Influenza Seasonal - High Dose - Age 65+ 01/26/2014 01/19/2015 02/03/2016 02/09/2017 01/11/2018 01/13/2020 Influenza Seasonal Trivalent Adjuvanted Pres Free 01/07/2019 Influenza Seasonal Trivalent Inj Pres Free 01/07/2019 Influenza Vaccine, Split-Non Spec 02/24/2008 02/24/2009 03/24/2010 01/17/2012 Influenza Vaccine, Whole 02/27/2007 02/27/2007 Pneumococcal-13 Vac Conjugate 01/19/2015 Pneumovax 07/10/2006 Tdap (Age 7+) 07/30/2017 Zostavax 12/06/2011 Zoster Recombinant (Shingrix) 01/13/2020 01/13/2020 05/17/2020 05/17/2020 influenza (aIIV4) vaccine, age 65+ yr, quadrivalent, PF (FLUAD QUADRIVALENT) 01/13/2020 influenza, high-dose, quadrivalent vaccine (FLUZONE HIGH DOSE QUADRIVALENT) 01/07/2021 PAST MEDICAL HISTORY Diagnosis Date - Age related osteoporosis - DEMETRA (acute kidney injury) (HCC) 08/18/2019 - Arthritis of both knees 03/08/2015 - Diarrhea - Diverticulosis of colon (without mention of hemorrhage) - Essential tremor 03/08/2016 - Hypercalcemia 03/13/2018 - Hyperparathyroidism, unspecified ([facility]) - Hypothyroidism, acquired 05/22/2020 - Irritable bowel syndrome - Osteopenia - Pill dysphagia - Sciatica - Secondary hyperparathyroidism (HCC) 08/02/2010 - Vitamin B 12 deficiency 08/18/2019 - Vitamin D deficiency 01/19/2014 PAST SURGICAL HISTORY Procedure Laterality Date - ADENOIDECTOMY PRIMARY Adenoidectomy - COLONOSCOPY FLX DX W/COLLJ SPEC WHEN PFRMD 08/19/1999 Colonoscopy - COLONOSCOPY FLX DX W/COLLJ SPEC WHEN PFRMD 07/14/2009 Repeat in - COLONOSCOPY FLX DX W/COLLJ SPEC WHEN PFRMD 09/30/2019 Colonoscopy - PAST SURGICAL HISTORY OF Bilateral partial knee replacemenet - TONSILLECTOMY PRIMARY/SECONDARY Tonsillectomy Social History Tobacco Use - Smoking status: Never Smoker - Smokeless tobacco: Never Used Substance Use Topics - Alcohol use: Yes Comment: Occasionally wine - Drug u (more content not included)... Normal [facility] MRI CERVICAL SPINE WO IVCONo n 06-21-2021 MRI CERVICAL SPINE WO IVCON * * *Final Report* * * DATE OF EXAM: Jun 21 2021 4:04PM [facility] [id number] - MRI CERVICAL SPINE WO IVCON / PROCEDURE REASON: C-spine fx, traumatic * * * * Physician Interpretation * * * * EXAMINATION: MRI CERVICAL SPINE WO IVCON CLINICAL HISTORY: C-spine fx, traumatic. Pain. TECHNIQUE: Routine cervical spine MR protocol without gadolinium. MQ: [id number] COMPARISON: CT cervical spine 06/20/2021 RESULT: Counting reference: Craniocervical junction. Anatomic Variants: None. Localizer images: No additional findings. Alignment: Redemonstration of 2 mm retrolisthesis at C5-6. Craniocervical junction: Craniocervical junction is normal. Cord: The visualized cord is within normal limits of signal intensity but is compressed as outlined below. No susceptibility artifact to suggest cord hemorrhage. Bone marrow signal/fracture: No evidence of pathologic marrow infiltration. Acute mildly displaced fracture at left C6-7 facet joint with mild malalignment. Loss of disc height signal at C5-6 and C6-7. Cervical soft tissues: There is edema in the nuchal ligament, suggesting ligamentous injury. There is edema in the right paraspinous muscle. C2-C3: Canal and foramina are patent. C3-C4: Disc osteophyte complex with mild canal stenosis. Uncovertebral and facet hypertrophy with mild bilateral foraminal stenosis. C4-C5: Canal and foramina are patent. C5-C6: Disc osteophyte complex and retrolisthesis with moderate canal stenosis and cord compression. Uncovertebral and facet hypertrophy with moderate right and severe left foraminal stenosis. C6-C7: Disc osteophyte complex with mild to moderate canal stenosis. Uncovertebral and facet hypertrophy with moderate right and severe left foraminal stenosis. C7-T1: Canal and foramina are patent. IMPRESSION: Acute left C6-C7 facet joint fracture. Nuchal ligament and right paraspinous muscle injury. 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 Normal cord signal. Severe foraminal stenosis at left C5-6 and C6-7. Anatomic Variant: None. Assume 7 cervical vertebrae with counting from the craniocervical junction. The result was submitted to the file room to be conveyed to the ordering physician as a wet read per protocol. Neonatologist: LAURA Transcribe Date/Time: Jun 21 2021 4:25P Dictated by : IESHA ROBERTS MD This examination was interpreted and the report reviewed and electronically signed by: IESHA RBOERTS MD on Jun 21 2021 4:38PM EST [id number] Normal [facility] SARS-CoV-2 RNA Resp Ql KY+p robeon 06-21-2021 SARS-CoV-2 (COVID-19) RNA KY+probe Ql (Resp) COVID 19 RESULT: SARS-CoV-2 (Agent of COVID-19) Not Detected by RT-PCR or equivalent method. This test has been authorized by FDA under an Emergency Use Authorization (EUA). Normal [facility] Comment on above: Performed By: #### 9 4500-6 ####[facility]IA [id number] [address] OF [facility] THERAPY NTon 06-21-2021 THERAPY NT HNO ID: [id number] Author: MELODY Wilhelm Service: Physical Therapy Author Type: Student Type: Therapy (PT/OT/Speech/Resp) Filed: 06/21/2021 3:35 PM Note Text: Attestation signed by Marla Lee PT at 06/21/2021 3:56 PM I reviewed and agree with the documentation corresponding to this therapy visit. SIGNATURE: Marla Lee PT DATE: June 21, 2021 TIME: 3:56 PM PHYSICAL THERAPY MISSED VISIT SERVICE DATE: 06/21/2021 SERVICE TIME: 1030 to 1035 [id number] Patient not seen due to Hold: Clinical Appropriateness. Waiting on neuro consult. SIGNATURE: Stacey Dhillon, MELODY PATIENT NAME: Fiona Gruber DATE: June 21, 2021 TIME: 3:35 PM Normal [facility] TOX SCREEN ROUT URon 022 Amphetamines Confirm (U) [Mass/Vol] Negative Normal Negative [facility] Comment on above: Order Comment: Speci men Type: URINE SPECIMENOrdering Facility: [facility] Address: [address] [place] [address] Result Comment: Cuto ff threshold at 1000 ng/mL. Performed By: #### U TOX2 ####[facility]ORYCLIA [id number] [address] OF [place] BARBITURATES, URINE Negative Normal Negative [facility] Comment on above: Order Comment: Speci men Type: URINE SPECIMENOrdering Facility: [facility] Address: [address] [place] [address] Result Comment: Cuto ff threshold at 200 ng/mL. Performed By: #### U TOX2 ####[facility]ORYCLIA [id number] [place] [address] [place] BENZODIAZEPINES, UR Negative Normal Negative [facility] Comment on above: Order Comment: Speci men Type: URINE SPECIMENOrdering Facility: [facility] Address: [address] [place] [address] Result Comment: Cuto ff threshold at 200 ng/mL. Performed By: #### U TOX2 ####[facility]ORYCLIA [id number] [place] [address] [place] CANNABINOIDS,URINE Negative Normal Negative [facility] Comment on above: Order Comment: Speci men Type: URINE SPECIMENOrdering Facility: [facility] Address: [address] [place] [address] Result Comment: Cuto ff threshold at 50 ng/mL. Performed By: #### U TOX2 ####[facility]ORYCLIA [id number] [place] [address] [place] Cocaine Ql (U) Negative Normal Negative [facility] Comment on above: Order Comment: Speci men Type: URINE SPECIMENOrdering Facility: [facility] Address: [address] [place] [address] Result Comment: Cuto ff threshold at 300 ng/mL. Performed By: #### U TOX2 ####[facility]ORYCLIA [id number] [address] OF [place] Ethanol (U) [Mass/Vol] <11 Normal <11 [facility] Comment on above: Order Comment: Speci men Type: URINE SPECIMENOrdering Facility: [facility] Address: [address] [place] [address] Performed By: #### U TOX2 ####[facility]ORYCLIA [id number] [address] Opiates Screen Ql (U) Negative Normal Negative [facility] Comment on above: Order Comment: Speci men Type: URINE SPECIMENOrdering Facility: [facility] Address: [address] [place] [address] Result Comment: Cuto ff threshold at 300 ng/mL. Performed By: #### U TOX2 ####[facility]ORYCLIA [id number] [address] oxyCODONE cutoff Screen (U) [Mass/Vol] Negative Normal Negative [facility] Comment on above: Order Comment: Speci men Type: URINE SPECIMENOrdering Facility: [facility] Address: [address] [place] [address] Result Comment: Cuto ff threshold at 100 ng/mL. Performed By: #### U TOX2 ####[facility] [id number] [address] Phencyclidine Ql (U) Negative Normal Negative [facility] Comment on above: Order Comment: Speci men Type: URINE SPECIMENOrdering Facility: [facility] Address: [address] [place] [address] Result Comment: Cuto ff threshold at 25 ng/mL. Performed By: #### U TOX2 ####[facility]ORYCLIA [id number] [address] VITAMIN D 25 HYDROXYon 06-21 25-hydroxyvitamin D3 [Mass/Vol] 41.8 ng/mL Normal 30.0-100.0 [facility] Comment on above: Order Comment: Speci men Type: BLOOD SPECIMENOrdering Facility: [facility] Address: [address] [place] [address] Result Comment: Clas sification of 25 [place] Vitamin D status: Deficiency: <= 20.0 ng/ml. Insufficientcy: 21.0-29.0 ng/ml. Sufficiency: >= 30.0 ng/ml. Performed By: #### 9 4500-6 #### [facility] CLIA [id number] [address] XR SHOULDER SPECIFY 1V RTon 06-21-2021 XR SHOULDER SPECIFY 1V RT * * *Final Report* * * DATE OF EXAM: Jun 21 2021 2:14PM [facility] [id number] - XR SHOULDER SPECIFY 1V RT / PROCEDURE REASON: Shoulder pain, traumatic * * * * Physician Interpretation * * * * X-RAYS RIGHT SHOULDER HISTORY: FELL XDAYS AGO, PAIN TO RIGHT SHOULDER. Shoulder pain, traumatic TECHNIQUE: Frontal view right shoulder COMPARISON: None RESULT: There is no evidence of fracture or dislocation. Degenerative changes of the right acromioclavicular and glenohumeral joints. The underlying bony architecture is normal. Significant soft tissue swelling is not seen. Calcified granuloma in the left upper lung zone. IMPRESSION: No acute displaced fracture or dislocation. Neonatologist: PSCJarocho Transcribe Date/Time: Jun 21 2021 2:28P Dictated by : CANDELARIO SOLITARIO MD This examination was interpreted and the report reviewed and electronically signed by: CANDELARIO SOLITARIO MD on Jun 21 2021 2:30PM EST [id number] Normal [facility] ALLIED HEALTHon 06-20-2021 ALLIED HEALTH HNO ID: [id number] Author: RT Timi(R) Service: Radiology Author Type: Technologist Type: Allied Health Filed: 06/20/2021 9:42 PM Note Text: Radiology Service Progress Note DATE OF SERVICE: June 20, 2021 TIME: 9:41 PM PATIENT IDENTITY VERIFICATION COMPLETED USING TWO (2) STANDARD IDENTIFIERS: Name and Date of confirmed by patient verbally and Name and Date of confirmed by identification band. FALL SCREENING: Has the patient had 2 falls in the last year or 1 fall with injury or currently using an Ambulatory Assistive Device (Walker, Cane, Wheelchair, Crutches, etc.)? Emergency Room Patient: Screened in ED PATIENT GENDER DATA: Female. status: : No status: N/A PATIENT RELEVANT IMPLANT DATA REVIEWED: Not Applicable ALLERGIES: Reviewed and unchanged CONTRAST ALLERGY: NO. EXAM: CT -CONTRAST INDUCED NEPHROPATHY RISK FACTORS: Patient age > 60 years CREATININE: Creatinine Date Value Ref Range Status 02/25/2021 0.74 0.58 - 0.96 mg/dL Final 12/20/2020 0.80 0.58 - 0.96 mg/dL Final 06/14/2020 0.80 0.58 - 0.96 mg/dL Final eGFR-All Other Races Date Value Ref Range Status 02/25/2021 >60 . Final Comment: eGFR (Estimated GFR) Units of measure: mL/min/1.73 meters squared eGFR is derived from the reexpressed MDRD Study equation using the following parameters: serum creatinine, age, gender and race. The creatinine assay has been calibrated to be traceable to IDMS. An eGFR <60 mL/min/1.73m2 for >3 months is consistent with chronic kidney disease. Refer to KDOQI guidelines for clinical interpretation. In patients with unstable renal function, e.g. those with acute kidney injury, the eGFR may not accurately reflect actual GFR. Note: On 06/04/2021, the eGFR calculation will be updated to the NKF-ASN Task Force recommended 2020 CKD-EPI creatinine equation which does not include a race variable. For more information or to access a 2020 CKD-EPI calculator, visit the National Kidney Foundation website at kidney.org/professiona ls/kdoqi/gfr_calculato r. eGFR- Date Value Ref Range Status 02/25/2021 >60 Final Comment: Note: On 06/04/2021, the eGFR calculation will be updated to the NKF-ASN Task Force recommended 2020 CKD-EPI creatinine equation which does not include a race variable. For more information or to access a 2020 CKD-EPI calculator, visit the National Kidney Foundation website at kidney.org/professiona ls/kdoqi/gfr_calculato r. P.O.C.T. 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 No family was present at this time. Informed staff that spiritual care is available 30/10 should family arrive or patient request. To contact the Spiritual Care Department: Please call [phone]. SIGNATURE: Chaplain Tani PATIENT NAME: Fiona Gruber DATE: June 20, 2021 TIME: 9:41 PM PAGER/CONTACT #: [phone] Normal [facility] CBC panel Auto (Bld)on 06-20 Erythrocyte distribution width (RBC) [Ratio] 14.2 % Normal 11.5-15.0 [facility] Comment on above: Order Comment: Speci men Type: BLOOD SPECIMENOrdering Facility: [facility] Address: [address] [place] [id number] Performed By: #### 1 7-3 #### [facility] CLIA [id number] [address] Hematocrit (Bld) [Volume fraction] 43.7 % Normal 36.0-46.0 [facility] Comment on above: Order Comment: Speci men Type: BLOOD SPECIMENOrdering Facility: [facility] Address: [address] [place] [address] Performed By: #### 1 7-3 #### [facility] CLIA [id number] [address] OF [facility] Hemoglobin (Bld) [Mass/Vol] 14.1 g/dL Normal 11.5-15.5 [facility] Comment on above: Order Comment: Speci men Type: BLOOD SPECIMENOrdering Facility: [facility] Address: [address] [place] [address] Performed By: #### 1 7-3 #### [facility] CLIA [id number] [address] MCH (RBC) [Entitic mass] 28.3 pg Normal 26.0-34.0 [facility] Comment on above: Order Comment: Speci men Type: BLOOD SPECIMENOrdering Facility: [facility] Address: [address] [place] [address] Performed By: #### 1 7-3 #### [facility] CLIA [id number] [address] MCHC (RBC) [Mass/Vol] 32.3 g/dL Normal 30.5-36.0 [facility] Comment on above: Order Comment: Speci men Type: BLOOD SPECIMENOrdering Facility: [facility] Address: [address] [place] [address] Performed By: #### 1 7-3 #### [facility] CLIA [id number] [address] [facility] MCV (RBC) [Entitic vol] 87.6 fL Normal 80.0-100.0 [facility] Comment on above: Order Comment: Speci men Type: BLOOD SPECIMENOrdering Facility: [facility] Address: [address] Performed By: #### 1 3317-3 #### [facility] CLIA [id number] [address] [place] Nucleated RBC (Bld) [#/Vol] 10*3/uL Normal <0.01 [facility] Comment on above: Order Comment: Speci men Type: BLOOD SPECIMENOrdering Facility: [facility] Address: [address] Performed By: #### 1 7-3 #### [facility] CLIA [id number] [address] [place] Platelet mean volume (Bld) [Entitic vol] 11.9 fL Normal 9.0-12.7 [facility] Comment on above: Order Comment: Speci men Type: BLOOD SPECIMENOrdering Facility: [facility] Address: [address] Performed By: #### 1 7-3 #### [facility] CLIA [id number] [address] [place] Platelets (Bld) [#/Vol] 217 10*3/uL Normal 150-400 [facility] Comment on above: Order Comment: Speci men Type: BLOOD SPECIMENOrdering Facility: [facility] Address: [address] Performed By: #### 1 7-3 #### [facility] CLIA [id number] [address] [place] RBC (Bld) [#/Vol] 4.99 10*6/uL Normal 3.90-5.20 [facility] Comment on above: Order Comment: Speci men Type: BLOOD SPECIMENOrdering Facility: [facility] Address: [address] Performed By: #### 1 7-3 #### [facility] CLIA [id number] [address] [place] [id number] [place] WBC (Bld) [#/Vol] 12.48 10*3/uL High 3.70-11.00 [facility] Comment on above: Order Comment: Speci men Type: BLOOD SPECIMENOrdering Facility: [facility] Address: [address] [place] [address] [place] [address] Performed By: #### 1 3317-3 #### [facility] CLIA [id number] [address] [place] [id number] [facility] CONSULTon 06-20-2021 CONSULT HNO ID: [id number] Author: Sahra Amador MD Service: Neurosurgery Author Type: Physician Type: Consults Filed: 06/27/2021 9:00 AM Note Text: Neurosurgery Consultation Note Reason for Consultation: C6 and C7 Facet Fractures Consulting Physician: Sahra Amador MD Date: June 20, 2021 Time: 9:41 PM History of Present Illness 81 year old female being evaluated today regarding a left C6 superior facet and C7 inferior facet fracture. Patient was at home walking in her kitchen when her feet got tangled up and she fell and the right side of her head on the lazy luanne. She had pain after the fall to her, mostly in her shoulder. EMS was then called and she was taken to [place]. Imaging at [place] revealed the fractures mentioned above. Patient was then transferred to [facility] for further management. Currently patient denies any cervical neck pain. She does complain of numbness in her left thumb. Patient does not take any medication for anticoagulation. Does not use any assistive device for ambulation. Patient lives at home with her . Review of Systems 10-point ROS negative except as in HPI. History PAST MEDICAL HISTORY Diagnosis Date - Age related osteoporosis - DEMETRA (acute kidney injury) (HCC) 08/18/2019 - Arthritis of both knees 03/08/2015 - Diarrhea - Diverticulosis of colon (without mention of hemorrhage) - Essential tremor 03/08/2016 - Hypercalcemia 03/13/2018 - Hyperparathyroidism, unspecified ([facility]) - Hypothyroidism, acquired 05/22/2020 - Irritable bowel syndrome - Osteopenia - Pill dysphagia - Sciatica - Secondary hyperparathyroidism (HCC) 08/02/2010 - Vitamin B 12 deficiency 08/18/2019 - Vitamin D deficiency 01/19/2014 PAST SURGICAL HISTORY Procedure Laterality Date - ADENOIDECTOMY PRIMARY Adenoidectomy - COLONOSCOPY FLX DX W/COLLJ SPEC WHEN PFRMD 08/19/1999 Colonoscopy - COLONOSCOPY FLX DX W/COLLJ SPEC WHEN PFRMD 07/14/2009 Repeat in - COLONOSCOPY FLX DX W/COLLJ SPEC WHEN PFRMD 09/30/2019 Colonoscopy - PAST SURGICAL HISTORY OF Bilateral partial knee replacemenet - TONSILLECTOMY PRIMARY/SECONDARY Tonsillectomy ADVANCE DIRECTIVE DISCUSSION Never done DIABETES SCREEN due on 12/21/2023 DTAP,TDAP,TD(2 - Td or Tdap) due on 07/31/2027 BONE DENSITY Completed INFLUENZA Completed PNEUMOVAX AGE 65 AND OVER WITH 5YR LOOKBACK Completed SHINGRIX VACCINE Completed COVID-19 VACCINE Completed MENINGOCOCCAL CONJUGATE Aged Out A review of the patient's history was completed and is otherwise non-contributory to the patient's presenting condition. Medications Alendronate Sodium (FOSAMAX) 70 mg/75 mL solution Take 75 mL by mouth one time a week. levothyroxine (SYNTHROID) 25 mcg tablet Take 1 tablet by mouth once daily. Take on empty stomach. For thyroid. MEDICATION, NON-DATABASE Levothyroxine 25 mcg ProOmega Liquid - 1 tsp daily L-Glutamine Powder - 1 tsp twice daily Digestive Enzymes Ultra - 1 capsule with small meal, 2 with large meal G.I. Detox - 1 capsule, 2 times a week Medi-Hasmukh 500mg - 1 capsule, 2 times a week Ortho Biotic Probiotic - 1 capsule daily Trifortify Waldo Gel - 1/4 tsp daily (will increase by 1/4 tsp each week up to 1 tsp daily) NAC 600 mg - Has not started yet. Was supposed to be started after she got to 3 capsules Medi-Hasmukh. TriFortify Waldo Gel ([employer]) Squeeze tube to fill 1 teaspoon, then swallow twice daily as toleratedStart with 1/4 tsp Probiotic 50B (Pure Encapsulations) Take 1 capsule daily ProOmega Liquid ([employer] Take one teaspoonful daily with food MEDICATION, NON-DATABASE Take 1 tablet by mouth once daily. MagEnhance (Magnesium) Allergies Amoxicillin, Fall Allergy [Other], and Penicillins Family History Family History Reviewed Including Cardiac Diseases, Psychiatric Diseases, AND Substance Abuse Problem: Arthritis Relation: Mother Age of Onset: (Not Specified) Problem: other (Dementia) Relation: Mother Age of Onset: (Not Specified) Problem: Heart Relation: Father Age of Onset: (Not Specified) Comment: MO, bi-pass surgery X-2/diabetes Problem: Headache Relation: Sister Age of Onset: (Not Specified) Problem: Thyroid Relation: Sister Age of Onset: (Not Specified) Problem: Calcium Disorder Relation: No Family History Age of Onset: (Not Specified) Social History Employer And Job Title: [employer] (Retired ) Years Of Education Completed: Not specified Marital Status: to Dong with 3 children Social History Tobacco Use - Smoking status: Never Smoker - Smokeless tobacco: Never Used Substance Use Topics - Alcohol use: Yes Comment: Occasionally wine - Drug use: No Physical Examination Vitals BP 152/84 Pulse (!) 109 Temp 36.8 ?C (98.2 ?F) Resp 21 SpO2 99% General AANDO. NAD. Cooperative throughout entire interview. Appropriate mood and affect. Spine Inspection: Cervical collar in place Palpat (more content not included)... Normal [facility] CT ABD/PEL W IVCONon 022 CT ABD/PEL W IVCON * * *Final Report* * * DATE OF EXAM: Jun 20 2021 9:51PM [facility] 0530 - CT ABD/PEL W IVCON / PROCEDURE REASON: Abdomen-pelvis trauma, moderate, blunt * * * * Physician Interpretation * * * * EXAM: CT ABD/PEL W IVCON, CT CHEST W IVCON INDICATION: Abdomen-pelvis trauma, moderate, blunt COMPARISON: None. TECHNIQUE: Chest, abdomen and pelvis were scanned utilizing a multidetector helical scanner from the lung apex to the pubic symphysis. IV CONTRAST: 75 mL Isovue 300/370 CT Radiation dose: Integrated Dose-length product (DLP) for this visit = 1178 mGy*cm. CT Dose Reduction Employed: Automated exposure control(AEC) and iterative recon FINDINGS: CT CHEST, ABD PELVIS: Lung parenchyma, pleura, and airways: No contusions or lacerations. No pleural effusion or pneumothorax. Lower neck, lymph nodes, and mediastinum: No mediastinal hematoma. No pathologically enlarged nodes. Heart, pericardium, and thoracic vessels: The heart is within normal size limits. No abnormal pericardial effusion. No evidence of acute traumatic aortic injury. Liver: No mass, laceration or hematoma. Biliary: Normal gallbladder. No duct dilation. Spleen: No laceration or hematoma. Pancreas: No mass or ductal dilation. Adrenals: No mass. Kidneys: No mass, calculus or hydronephrosis. No perinephric fluid. GI tract: No dilation or wall thickening. Appendix: Normal Lymph nodes: No lymphadenopathy. Mesentry/Peritoneum/Re troperitoneum: No ascites or mass. Vasculature: No abdominal aortic aneurysm or branch occlusion. Pelvis: Normal appearance of uterus and adnexa. Normal bladder. Bones/Soft Tissues: Partially visualized fracture of the left C7 pedicle. Right supraclavicular fat stranding. The opacified right subclavian and axillary arteries are patent. Small fat-containing umbilical hernia. IMPRESSION: 1. Right supraclavicular fat stranding/soft tissue hematoma without associated fracture or arterial injury. 2. No evidence of acute intrapulmonary traumatic injury. 3. See separate report for cervical spine injuries. 4. No evidence of acute injury to the abdomen or pelvis. Neonatologist: LAURA Transcribe Date/Time: Jun 20 2021 9:53P Dictated by : DELMAR BLACKBURN MD This examination was interpreted and the report reviewed and electronically signed by: DELMAR BLACKBURN MD on Jun 20 2021 10:09PM EST [id number] Normal [facility] CT C-SPINE W RECON DATA -NBo n 06-20-2021 CT C-SPINE W RECON DATA -NB * * *Final Report* * * DATE OF EXAM: Jun 20 2021 9:44PM [facility] 0478 - CT C-SPINE W RECON DATA -NB / PROCEDURE REASON: C-spine trauma, NEXUS/CCR positive, arterial injury suspected * * * * Physician Interpretation * * * * EXAMINATION: CTA NECK W IVCON, CT C-SPINE W RECON DATA -NB HISTORY: C-spine trauma, NEXUS/CCR positive, arterial injury suspected TECHNIQUE: Spiral high resolution axial images were obtained through the neck and superior mediastinum following bolus administration of intravenous contrast for CT angiography. 3D maximum intensity projection images were created, reviewed and archived . MQ: CTAHN_4 Contrast: 75 mL Omnipaque [address] Radiation dose: Integrated Dose-Length Product (DLP) for this visit = 361 mGy*cm. CT Dose Reduction Employed: Automated exposure control(AEC) and iterative recon COMPARISON: None. RESULT: NECK: Soft tissues: The soft tissue planes are maintained throughout. No evidence of a soft tissue mass in the neck or superior mediastinum. No significant lymphadenopathy is seen. Spine: Slight reversal of normal cervical lordosis with minimal anterolisthesis of C4 on C5, minimal retrolisthesis of C5 on C6, and minimal anterolisthesis of C7 on T1. Comminuted fractures of the left C6 and C7 facets which predominantly involves the mid and inferior aspect of C6 and involves the superior, mid and somewhat inferior aspect of C7. These also minimally extend into the corresponding ipsilateral lamina. Some degree of subluxation of the left C6, C7, and questionably minimally C5 facets without overt perching or non articulation. Some degree of slight vertebral body superior endplate irregularity of C6 which cannot be conclusively evaluated given extent of respiratory motion. Questionable nondisplaced fracture of the superior facet of T1 which could also be osteophyte. Nondisplaced fracture of the left C7 transverse process. No distinct vertebral corner fracture or intervertebral disc space widening. No distinct interspinous ligamentous widening. Lung apices: The visualized lung apices are clear. CT ARTERIOGRAM: Extracranial Circulation: Aortic Arch: There is a normal branching pattern from the aortic arch.. There is no significant stenosis in the proximal brachiocephalic vessels. Carotid Stenosis: Right Common: No significant stenosis. Right Internal Carotid Plaque: Mild plaque formation. Right Internal Carotid Stenosis (% by NASCET Criteria): Less than 40 Left Common: No significant stenosis. Left Internal Carotid Plaque: Mild plaque formation. Left Internal Carotid Stenosis (% by NASCET Criteria): Less than 40 Cervical Vertebral Arteries: Patency: Minimal luminal wall irregularity and slight caliber change of the left foraminal first segment vertebral artery at the level of C6 and C7. No distinct dissection flap. Otherwise, no abrupt short 7 caliber change, intraluminal filling defect, or wall irregularity of the extracranial carotid or vertebral arteries to suggest dissection. Dominance: Left No evidence of extravasation. No expanding hematoma. Intracranial Circulation: No large vessel occlusion or severe stenosis of the included anterior circulation. No filling defect of the included dural venous sinuses. [employer] (topogram) images: IMPRESSION: Minimal caliber change and luminal wall irregularity of the left C6 and C7 extracranial first segment vertebral artery which could reflect either some degree of vasospasm versus minimal grade 1 arterial injury. This can be further evaluated with follow-up CTA if determined clinically warranted. Otherwise, no evidence of acute arterial injury on CTA neck. Comminuted left C6 and C7 facet fractures with some degree of slight subluxation without overt perching or non articulation. Finding is concerning for some degree of possible ligamentous injury and can be conclusively evaluated with MRI if determined clinically warranted. Nondisplaced left C7 transverse process fracture. Some degree of minimal C6 superior endplate vertebral body irregularity which cannot be conclusively evaluated given extent of respiratory motion. This could also be further evaluated for acute edema/fracture with MRI if clinically warranted. Arterial blood flow was measured to detect acute large vessel occlusion by computer aided detection software: Not Performed. Concordance between software and imaging review: Not Applicable. Neonatologist: LAURA Transcribe Date/Time: Jun 20 2021 10:46P Dictated by : JESU ZAMORA MD This examination was interpreted and the report reviewed and electronically signed by: JESU ZAMORA MD on Jun 20 2021 11:13PM EST [id number] Normal [facility] CT CHEST W IVCONon 2 CT CHEST W IVCON * * *Final Report* * * DATE OF EXAM: Jun 20 2021 9:51PM [facility] 0539 - CT CHEST W IVCON / PROCEDURE REASON: Chest trauma, blunt * * * * Physician Interpretation * * * * EXAM: CT ABD/PEL W IVCON, CT CHEST W IVCON INDICATION: Abdomen-pelvis trauma, moderate, blunt COMPARISON: None. TECHNIQUE: Chest, abdomen and pelvis were scanned utilizing a multidetector helical scanner from the lung apex to the pubic symphysis. IV CONTRAST: 75 mL Isovue 300/370 CT Radiation dose: Integrated Dose-length product (DLP) for this visit = 1178 mGy*cm. CT Dose Reduction Employed: Automated exposure control(AEC) and iterative recon FINDINGS: CT CHEST, ABD PELVIS: Lung parenchyma, pleura, and airways: No contusions or lacerations. No pleural effusion or pneumothorax. Lower neck, lymph nodes, and mediastinum: No mediastinal hematoma. No pathologically enlarged nodes. Heart, pericardium, and thoracic vessels: The heart is within normal size limits. No abnormal pericardial effusion. No evidence of acute traumatic aortic injury. Liver: No mass, laceration or hematoma. Biliary: Normal gallbladder. No duct dilation. Spleen: No laceration or hematoma. Pancreas: No mass or ductal dilation. Adrenals: No mass. Kidneys: No mass, calculus or hydronephrosis. No perinephric fluid. GI tract: No dilation or wall thickening. Appendix: Normal Lymph nodes: No lymphadenopathy. Mesentry/Peritoneum/Re troperitoneum: No ascites or mass. Vasculature: No abdominal aortic aneurysm or branch occlusion. Pelvis: Normal appearance of uterus and adnexa. Normal bladder. Bones/Soft Tissues: Partially visualized fracture of the left C7 pedicle. Right supraclavicular fat stranding. The opacified right subclavian and axillary arteries are patent. Small fat-containing umbilical hernia. IMPRESSION: 1. Right supraclavicular fat stranding/soft tissue hematoma without associated fracture or arterial injury. 2. No evidence of acute intrapulmonary traumatic injury. 3. See separate report for cervical spine injuries. 4. No evidence of acute injury to the abdomen or pelvis. Neonatologist: PSCB Transcribe Date/Time: Jun 20 2021 9:53P Dictated by : DELMAR BLACKBURN MD This examination was interpreted and the report reviewed and electronically signed by: DELMAR BLACKBURN MD on Jun 20 2021 10:09PM EST [id number] Normal [facility] CTA NECK W IVCONon 2 CTA NECK W IVCON * * *Final Report* * * DATE OF EXAM: Jun 20 2021 9:44PM [facility] 0024 - CTA NECK W IVCON / PROCEDURE REASON: C-spine trauma, NEXUS/CCR positive, arterial injury suspected * * * * Physician Interpretation * * * * EXAMINATION: CTA NECK W IVCON, CT C-SPINE W RECON DATA -NB HISTORY: C-spine trauma, NEXUS/CCR positive, arterial injury suspected TECHNIQUE: Spiral high resolution axial images were obtained through the neck and superior mediastinum following bolus administration of intravenous contrast for CT angiography. 3D maximum intensity projection images were created, reviewed and archived . MQ: CTAHN_4 Contrast: 75 mL Omnipaque [address] Radiation dose: Integrated Dose-Length Product (DLP) for this visit = 361 mGy*cm. CT Dose Reduction Employed: Automated exposure control(AEC) and iterative recon COMPARISON: None. RESULT: NECK: Soft tissues: The soft tissue planes are maintained throughout. No evidence of a soft tissue mass in the neck or superior mediastinum. No significant lymphadenopathy is seen. Spine: Slight reversal of normal cervical lordosis with minimal anterolisthesis of C4 on C5, minimal retrolisthesis of C5 on C6, and minimal anterolisthesis of C7 on T1. Comminuted fractures of the left C6 and C7 facets which predominantly involves the mid and inferior aspect of C6 and involves the superior, mid and somewhat inferior aspect of C7. These also minimally extend into the corresponding ipsilateral lamina. Some degree of subluxation of the left C6, C7, and questionably minimally C5 facets without overt perching or non articulation. Some degree of slight vertebral body superior endplate irregularity of C6 which cannot be conclusively evaluated given extent of respiratory motion. Questionable nondisplaced fracture of the superior facet of T1 which could also be osteophyte. Nondisplaced fracture of the left C7 transverse process. No distinct vertebral corner fracture or intervertebral disc space widening. No distinct interspinous ligamentous widening. Lung apices: The visualized lung apices are clear. CT ARTERIOGRAM: Extracranial Circulation: Aortic Arch: There is a normal branching pattern from the aortic arch.. There is no significant stenosis in the proximal brachiocephalic vessels. Carotid Stenosis: Right Common: No significant stenosis. Right Internal Carotid Plaque: Mild plaque formation. Right Internal Carotid Stenosis (% by NASCET Criteria): Less than 40 Left Common: No significant stenosis. Left Internal Carotid Plaque: Mild plaque formation. Left Internal Carotid Stenosis (% by NASCET Criteria): Less than 40 Cervical Vertebral Arteries: Patency: Minimal luminal wall irregularity and slight caliber change of the left foraminal first segment vertebral artery at the level of C6 and C7. No distinct dissection flap. Otherwise, no abrupt short 7 caliber change, intraluminal filling defect, or wall irregularity of the extracranial carotid or vertebral arteries to suggest dissection. Dominance: Left No evidence of extravasation. No expanding hematoma. Intracranial Circulation: No large vessel occlusion or severe stenosis of the included anterior circulation. No filling defect of the included dural venous sinuses. [employer] (topogram) images: IMPRESSION: Minimal caliber change and luminal wall irregularity of the left C6 and C7 extracranial first segment vertebral artery which could reflect either some degree of vasospasm versus minimal grade 1 arterial injury. This can be further evaluated with follow-up CTA if determined clinically warranted. Otherwise, no evidence of acute arterial injury on CTA neck. Comminuted left C6 and C7 facet fractures with some degree of slight subluxation without overt perching or non articulation. Finding is concerning for some degree of possible ligamentous injury and can be conclusively evaluated with MRI if determined clinically warranted. Nondisplaced left C7 transverse process fracture. Some degree of minimal C6 superior endplate vertebral body irregularity which cannot be conclusively evaluated given extent of respiratory motion. This could also be further evaluated for acute edema/fracture with MRI if clinically warranted. Arterial blood flow was measured to detect acute large vessel occlusion by computer aided detection software: Not Performed. Concordance between software and imaging review: Not Applicable. Neonatologist: LAURA Transcribe Date/Time: Jun 20 2021 10:46P Dictated by : JESU ZAMORA MD This examination was interpreted and the report reviewed and electronically signed by: JESU ZAMORA MD on Jun 20 2021 11:13PM EST [id number] Normal [facility] Comprehensive metabolic 2000 panelon 06-20-2021 Albumin [Mass/Vol] 4.2 g/dL Normal 3.9-4.9 [facility] Comment on above: Order Comment: Speci men Type: BLOOD SPECIMENOrdering Facility: [facility] Address: [address] [place] [address] Performed By: #### 1 3317-3 #### [facility] CLIA [id number] [address] [place] [address] ALP [Catalytic activity/Vol] 86 U/L Normal 34-123 [facility] Comment on above: Order Comment: Speci men Type: BLOOD SPECIMENOrdering Facility: [facility] Address: [address] [place] [address] Performed By: #### 1 3317-3 #### [facility] CLIA [id number] [address] [place] [address] OF [facility] ALT With P-5'-P [Catalytic activity/Vol] 28 U/L Normal 7-38 [facility] Comment on above: Order Comment: Speci men Type: BLOOD SPECIMENOrdering Facility: [facility] Address: [address] [address] Performed By: #### 1 3317-3 #### [facility] CLIA [id number] [address] OF [facility] Anion gap [Moles/Vol] 11 mmol/L Normal 9-18 [facility] Comment on above: Order Comment: Speci men Type: BLOOD SPECIMENOrdering Facility: [facility] Address: [address] [place] [address] Performed By: #### 1 7-3 #### [facility] CLIA [id number] [address] [place] AST With P-5'-P [Catalytic activity/Vol] 58 U/L High 13-35 [facility] Comment on above: Order Comment: Speci men Type: BLOOD SPECIMENOrdering Facility: [facility] Address: [address] [place] [address] Performed By: #### 1 7-3 #### [facility] CLIA [id number] [address] [place] Bilirubin [Mass/Vol] 0.2 mg/dL Normal 0.2-1.3 [facility] Comment on above: Order Comment: Speci men Type: BLOOD SPECIMENOrdering Facility: [facility] Address: [address] [place] [address] Performed By: #### 1 7-3 #### [facility] CLIA [id number] [address] [place] Calcium [Mass/Vol] 9.6 mg/dL Normal 8.5-10.2 [facility] Comment on above: Order Comment: Speci men Type: BLOOD SPECIMENOrdering Facility: [facility] Address: [address] [place] [address] Performed By: #### 1 3317-3 #### [facility] CLIA [id number] [address] Chloride [Moles/Vol] 101 mmol/L Normal 97-105 [facility] Comment on above: Order Comment: Speci men Type: BLOOD SPECIMENOrdering Facility: [facility] Address: [address] [place] [address] Performed By: #### 1 3317-3 #### [facility] CLIA [id number] [address] OF [facility] CO2 [Moles/Vol] 24 mmol/L Normal 22-30 [facility] Comment on above: Order Comment: Speci men Type: BLOOD SPECIMENOrdering Facility: [facility] Address: [address] [place] [address] Performed By: #### 1 3317-3 #### [facility] CLIA [id number] [address] Creatinine [Mass/Vol] 0.73 mg/dL Normal 0.58-0.96 [facility] Comment on above: Order Comment: Speci men Type: BLOOD SPECIMENOrdering Facility: [facility] Address: [address] [place] [address] Performed By: #### 1 3317-3 #### [facility] CLIA [id number] [address] ESTIMATED GLOMERULAR FILTRATION RATE 83 mL/min/1.73m??? Normal >=60 [facility] Comment on above: Order Comment: Speci men Type: BLOOD SPECIMENOrdering Facility: [facility] Address: [address] [place] [address] Result Comment: Lawanda mated Glomerular Filtration Rate (eGFR) is calculated using the 2020 CKD-EPI creatinine equation. This equation utilizes serum creatinine, sex, and age as parameters. The creatinine assay has traceable calibration to isotope dilution-mass spectrometry. Refer to KDIGO guidelines for clinical interpretation. In patients with unstable renal function, e.g. those with acute kidney injury, the eGFR may not accurately reflect actual GFR. Performed By: #### 1 3317-3 #### [facility] CLIA [id number] [address] [place] [address] [place] Glucose [Mass/Vol] 115 mg/dL High 74-99 [facility] Comment on above: Order Comment: Speci men Type: BLOOD SPECIMENOrdering Facility: [facility] Address: [address] [place] [address] Result Comment: The [place] Diabetes Association (ADA) provides guidance for cutoff values for fasting glucose and random glucose. The ADA defines fasting as no caloric intake for at least 8 hours. Fasting plasma glucose results between 100 to 125 mg/dL indicate increased risk for diabetes (prediabetes). Fasting plasma glucose results greater than or equal to 126 mg/dL meet the criteria for diagnosis of diabetes. In the absence of unequivocal hyperglycemia, results should be confirmed by repeat testing. In a patient with classic symptoms of hyperglycemia or hyperglycemic crisis, random plasma glucose results greater than or equal to 200 mg/dL meet the criteria for diagnosis of diabetes. Reference: Standards of Medical Care in Diabetes 2016, [place] Diabetes Association. Diabetes Care. 2016.39(Suppl 1). Performed By: #### 1 3317-3 #### [facility] CLIA [id number] [address] [place] [address] [place] Potassium [Moles/Vol] 4.1 mmol/L Normal 3.7-5.1 [facility] Comment on above: Order Comment: Ruthi men Type: BLOOD SPECIMENOrdering Facility: [facility] Address: [address] [place] [address] Performed By: #### 1 3317-3 #### [facility] CLIA [id number] [address] [place] [address] [place] Protein [Mass/Vol] 7.6 g/dL Normal 6.3-8.0 [facility] Comment on above: Order Comment: Speci men Type: BLOOD SPECIMENOrdering Facility: [facility] Address: [address] [place] [address] Performed By: #### 1 3317-3 #### [facility] CLIA [id number] [address] [place] [address] [place] Sodium [Moles/Vol] 136 mmol/L Normal 136-144 [facility] Comment on above: Order Comment: Speci men Type: BLOOD SPECIMENOrdering Facility: [facility] Address: [address] [place], [place] [id number] Performed By: #### 1 3317-3 #### [facility] CLIA [id number] [address] OF [facility] Urea nitrogen [Mass/Vol] 14 mg/dL Normal 7-21 [facility] Comment on above: Order Comment: Speci men Type: BLOOD SPECIMENOrdering Facility: [facility] Address: [address] [place] [address] Performed By: #### 1 3317-3 #### [facility] CLIA [id number] [address] ED NOTEon 06-20-2021 ED NOTE HNO ID: [id number] Author: Padmaja Griffin RN Service: Emergency Medicine Author Type: Registered Nurse Type: ED Notes Filed: 06/20/2021 9:55 PM Note Text: Pt moved to room 8, report given to TYRON Franco. [facility] ED NOTE HNO ID: [id number] Author: Padmaja Griffin RN Service: Emergency Medicine Author Type: Registered Nurse Type: ED Notes Filed: 06/20/2021 9:39 PM Note Text: OR and blood bank notified. [facility] ED NOTE HNO ID: [id number] Author: Padmaja Griffin RN Service: Emergency Medicine Author Type: Registered Nurse Type: ED Notes Filed: 06/20/2021 9:38 PM Note Text: Neurosurgery consulted. [facility] ED NOTE HNO ID: [id number] Author: Padmaja Griffin RN Service: Emergency Medicine Author Type: Registered Nurse Type: ED Notes Filed: 06/20/2021 9:37 PM Note Text: Pt to CT with trauma team. [facility] ED NOTE HNO ID: [id number] Author: Iliana Pickering Service: ? Author Type: ? Type: ED Notes Filed: 06/20/2021 9:28 PM Note Text: Bed: 04-ED-BO Expected date: 06/20/21 Expected time: Means of arrival: [facility] Comments: Normal [facility] Ethanol SerPl-mCncon 022 Ethanol [Mass/Vol] mg/dL Normal <11 [facility] Comment on above: Order Comment: Steph whiting Type: BLOOD SPECIMENOrdering Facility: [facility] Address: [address] [place] [address] Performed By: #### 9 4500-6 #### [facility] CLIA [id number] [address] HIGH SENSITIVITY TROPONIN To n 06-20-2021 HIGH SENSITIVITY EMRE 57 ng/L High <12 [facility] Comment on above: Order Comment: Steph whiting Type: BLOOD SPECIMENOrdering Facility: [facility] Address: [address] [place] [address] Result Comment: When assessing risk for acute coronary syndromes: In patients undergoing blood draw greater than or equal to 2 hours from symptom onset, with history of very low to moderate risk and non-ischemic ECG, an initial hs-Troponin T less than 12 ng/L AND a 1 hour delta hs-Troponin T less than 3 ng/L should be considered very low risk for 30 day MACE. Performed By: #### 9 4500-6 #### [facility] CLIA [id number] [address] Lipase SerPl-cCncon 06-21-19 22 Lipase [Catalytic activity/Vol] 40 U/L Normal 16-61 [facility] Comment on above: Order Comment: Steph johanne Type: BLOOD SPECIMENOrdering Facility: [facility] Address: [address] [place] [address] Performed By: #### 1 3317-3 #### [facility] CLIA [id number] [address] OF [place] CNPMariah 05-18-2021 CNPN Telephone ([facility]) FIONA GRUBER ( ) 1940 F Date Time Provider Department 05/18/21 MYRNA PLATA JR During your visit today, we recorded the following information about you: Sussy Shahid LPN 05/18/2021 1:57 PM Signed Daughter Marlen called and pt saw Dr. Enrike Malik DO [facility]. He is referring pt for consult and sleep study. DX sleep apnea. Daughter is faxing the information and referral to you. Daughter was transferred to distribution center assistant to schedule apt. Please watch for fax. FYI: Pt will agree only to a home sleep study. Sussy Shahid LPN 05/27/2021 9:44 AM Signed Pt has apt booked with Neuro at [facility] 06/09/21 Sussy Shahid LPN Allergies As of Date: 05/18/2021 Noted Allergy Reaction AMOXICILLIN 05/04/2005 4 - Hives Comments: GI upset fall allergy [Other] 10/17/2006 PENICILLINS 11/11/2018 4 - Hives Date Reviewed: 05/17/2021 Reviewed by: Tita Cruz MA - Fully Assessed Reason for Visit: referral being faxed [Other] Cmt: outside for sleep consult and study Prescriptions as of 05/27/2021 - Alendronate Sodium (FOSAMAX) 70 mg/75 mL solution Take 75 mL by mouth one time a week. - levothyroxine (SYNTHROID) 25 mcg tablet Take 1 tablet by mouth once daily. Take on empty stomach. For thyroid. - MEDICATION, NON-DATABASE Levothyroxine 25 mcg ProOmega Liquid - 1 tsp daily L-Glutamine Powder - 1 tsp twice daily Digestive Enzymes Ultra - 1 capsule with small meal, 2 with large meal G.I. Detox - 1 capsule, 2 times a week Medi-Hasmukh 500mg - 1 capsule, 2 times a week Ortho Biotic Probiotic - 1 capsule daily Trifortify Waldo Gel - 1/4 tsp daily (will increase by 1/4 tsp each week up to 1 tsp daily) NAC 600 mg - Has not started yet. Was supposed to be started after she got to 3 capsules Medi-Hasmukh. - TriFortify Waldo Gel (117go Nutritionals) Squeeze tube to fill 1 teaspoon, then swallow twice daily as tolerated Start with 1/4 tsp - Mddg-Xynn-AO (PVPower) Take 1 capsule, 2 times daily with 4 oz or more of water. - G.I. Detox (NeuMedics) 1-2 capsules with full glass of water once daily as needed between meals to help with off reactions - Digestive Enzymes Ultra 180 ct. (Pure Encapsulations) Take 2 capsules with meals - Probiotic 50B (Pure Encapsulations) Take 1 capsule daily - L-Glutamine Powder ( Pure Encapsulations ) 3 grams/teaspoon One tsp twice daily in water or smoothie between meals or as directed by your health care practitioner. - ProOmega Liquid (GroupPrice Naturals) Take one teaspoonful daily with food - MEDICATION, NON-DATABASE Take 1 tablet by mouth once daily. MagEnhance (Magnesium) Meds Comments as of 03/08/2015: Ebony Zamora Problem List As Of Date 05/18/2021 Noted Resolved Senile osteoporosis [M81.0] 02/06/2005 Dysmetabolic syndrome X [E88.81] 07/10/2006 03/08/2017 Spastic Colitis [K58.9] 02/24/2009 Diarrhea [R19.7] 04/12/2009 03/08/2016 Secondary hyperparathyroidism (HCC) [N25.81] 08/02/2010 03/08/2017 Vaginal dryness [N89.8] 11/26/2013 11/30/2014 Vitamin D deficiency [E55.9] 01/19/2014 07/04/2017 Postmenopausal atrophic vaginitis [N95.2] 11/30/2014 Osteopenia [M85.80] 03/08/2015 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] 03/08/2015 Essential tremor [G25.0] 03/08/2016 Hypercalcemia [E83.52] 03/13/2018 08/25/2019 High vitamin D level [E67.3] 03/13/2018 Rotator cuff arthropathy of both shoulders [M12*09/20/2018 Essential hypertension [I10] 08/18/2019 CKD (chronic kidney disease), stage III (HCC) [*08/18/2019 DEMETRA (acute kidney injury) (HCC) [N17.9] 08/18/2019 08/25/2019 Vitamin B 12 deficiency [E53.8] 08/18/2019 08/25/2019 Fatigue [R53.83] 11/18/2019 Elevated LFTs [R79.89] 11/18/2019 Mold exposure [Z77.120] 11/18/2019 B-complex deficiency [E53.9] 01/29/2020 Essential fatty acid (EFA) deficiency [E63.0] 01/29/2020 Exposure to mercury [Z77.018] 01/29/2020 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 No abnormality detected. Normal [facility] ([place]) Comment on above: Result Comment: Elec tronically Signed by: BRICE SCHMID DO 08/21/2019 13:58 EDT Performed By: #### C OKSANA TORREZ, ANEU #### [address] [address] #### BMP, GFR #### [address] [address] Albumin [Mass/Vol] 3.3 G/dL Normal 3.3-5.0 [facility] ([place]) Comment on above: Performed By: #### C OKSANA TORREZ, ANEU #### [address] [address] #### BMP, GFR #### [place] [address] Alpha 1 0.2 G/dL Normal 0.1-0.4 [facility] ([place]) Comment on above: Performed By: #### C BC, ADIFF, ANEU #### [address] [address] #### BMP, GFR #### [place] [address] Alpha 2 0.9 G/dL Normal 0.6-1.2 [facility] ([place]) Comment on above: Performed By: #### C BC, ADIFF, ANEU #### [address] [address] #### BMP, GFR #### [place] [address] Beta 1.0 G/dL Normal 0.6-1.3 [facility] ([place]) Comment on above: Performed By: #### C BC, ADIFF, ANEU #### [place] [address] #### BMP, GFR #### [place] [address] Gamma 0.9 G/dL Normal 0.7-1.6 [facility] ([place]) Comment on above: Performed By: #### C BC, ADIFF, ANEU #### [place] [address] #### BMP, GFR #### [place] [address] UPEon 08-21-2019 UPE Interpretation Electrophoresis of concentrated urine demonstrates a trace of albumin. This may be seen in some normal healthy individuals as well as in early renal dysfunction. Normal [facility] ([place]) Comment on above: Result Comment: Elec tronically Signed by: BRICE SCHMID DO 08/21/2019 13:58 EDT Performed By: #### C BC, ADIFF, ANEU #### [place] [address] #### BMP, GFR #### [place] [address] VIDDHon 08-19-2019 Vit. D 1,25 Dihydro. 25.1 pg/mL Normal 15.0-60.0 [facility] ([place]) Comment on above: Result Comment: This test was developed and its performance characteristics determined by [facility]'s [facility] ( [facility]). It has not been cleared or approved by the FDA. [facility] is regulated under CLIA as qualified to perform high complexity testing. This test is used for clinical purposes. It should not be regarded as investigational or for research. Performed By: [facility] [address] [place] [id number] Pipe Cutter: Duarte You III, M.D. CLIA#: [id number] Phone#: Performed By: #### C BC ADIFF, ANEU #### [address] [address] #### BMP, GFR #### [place] [address] Vitamin D2 1,25 <4.0 Normal [facility] ([place]) Comment on above: Result Comment: Perf ormed By: [address] [address] Pipe Cutter: Duarte You III, M.D. CLIA#: [id number] Phone#: Performed By: #### C BC, ADIFF, ANEU #### [address] [address] #### BMP, GFR #### [place] [address] Vitamin D3 1,25 25.1 pg/mL Normal [facility] ([place]) Comment on above: Result Comment: Perf ormed By: [facility] [address] [place], [place] [id number] Pipe Cutter: Duarte You III, M.D. CLIA#: [id number] Phone#: Performed By: #### C BC, ADIFF, ANEU #### [address] [address] #### BMP, GFR #### [address] [address] .Auto Diffon 08-17-2019 Ammonia (P) [Mass/Vol] 0.40 10 3/mcL Normal 0.09-1.40 [facility] ([place]) Comment on above: Performed By: #### C BC, ADIFF, ANEU #### [place] [address] #### BMP, GFR #### [address] [address] Basophils (Bld) [#/Vol] 0.10 10 3/mcL Normal 0.00-0.27 [facility] ([place]) Comment on above: Performed By: #### C BC, ADIFF, ANEU #### [place] [address] #### BMP, GFR #### [place] [address] Basophils/100 WBC (Bld) 0.8 % Normal 0.0-2.5 [facility] ([place]) Comment on above: Performed By: #### C BC, ADIFF, ANEU #### [place] [address] #### BMP, GFR #### [address] [address] Eosinophils (Bld) [#/Vol] 0.10 10 3/mcL Normal 0.00-0.65 [facility] ([place]) Comment on above: Performed By: #### C BC, ADIFF, ANEU #### [place] [address] #### BMP, GFR #### [address] [address] Eosinophils/100 WBC (Bld) 1.3 % Normal 0.0-6.0 [facility] ([place]) Comment on above: Performed By: #### C BC, ADIFF, ANEU #### [place] [address] #### BMP, GFR #### [address] [address] Lymphocytes (Bld) [#/Vol] 1.10 10 3/mcL Normal 0.90-4.32 [facility] ([place]) Comment on above: Performed By: #### C BC, ADIFF, ANEU #### [address] [address] #### BMP, GFR #### [address] [address] Lymphocytes/100 WBC (Bld) 17.0 % Low 20.0-40.0 [facility] ([place]) Comment on above: Performed By: #### C BC, ADIFF, ANEU #### [address] [address] #### BMP, GFR #### [address] [address] Monocytes/100 WBC (Bld) 6.7 % Normal 2.0-13.0 [facility] ([place]) Comment on above: Performed By: #### C BC, ADIFF, ANEU #### [address] [address] #### BMP, GFR #### [address] [address] Neutrophils/100 WBC (Bld) 74.2 % Normal 50.0-75.0 [facility] ([place]) Comment on above: Performed By: #### C BC, ADIFF, ANEU #### [address] [address] #### BMP, GFR #### [address] [address] .GFRon 08-17-2019 GFR 51 ml/min/1.73sqm Normal [facility] ([place]) Comment on above: Result Comment: GFR Population mean for , Non- Americans Ages 20-29 = 116 mL/min/1.73 sq.m. Ages 30-39 = 107 mL/min/1.73 sq.m. Ages 40-49 = 99 mL/min/1.73 sq.m. Ages 50-59 = 93 mL/min/1.73 sq.m. Ages 60-69 = 85 mL/min/1.73 sq.m. Ages 70+ = 75 mL/min/1.73 sq.m. Chronic Kidney Disease: Less than 60 mL/min/1.73 square meters End Stage Renal Disease: Less than 15 mL/min/1.73 square meters Performed By: #### C BCOKSANA, ANEU #### [address] [address] #### BMP, GFR #### [address] [address] GFR Non- 42 ml/min/1.73sqm Normal [facility] ([place]) Comment on above: Result Comment: GFR Population mean for , Non- Americans Ages 20-29 = 116 mL/min/1.73 sq.m. Ages 30-39 = 107 mL/min/1.73 sq.m. Ages 40-49 = 99 mL/min/1.73 sq.m. Ages 50-59 = 93 mL/min/1.73 sq.m. Ages 60-69 = 85 mL/min/1.73 sq.m. Ages 70+ = 75 mL/min/1.73 sq.m. Chronic Kidney Disease: Less than 60 mL/min/1.73 square meters End Stage Renal Disease: Less than 15 mL/min/1.73 square meters Performed By: #### C OKSANA TORREZ, ANEU #### [address] [address] #### BMP, GFR #### [address] [address] .NEUABSon 08-17-2019 Neutrophils (Bld) [#/Vol] 5.00 10 3/mcL Normal 2.25-8.10 [facility] ([place]) Comment on above: Performed By: #### C OKSANA TORREZ, ANEU #### [address] [address] #### BMP, GFR #### [address] [address] BMPon 08-17-2019 Calcium [Mass/Vol] 9.4 mg/dL Normal 8.4-10.1 [facility] ([place]) Comment on above: Performed By: #### C BC, ADIFF, ANEU #### [place] [address] #### BMP, GFR #### [address] [address] Chloride [Moles/Vol] 114 mmol/L High 98-110 [facility] ([place]) Comment on above: Performed By: #### C BC, ADIFF, ANEU #### [address] [address] #### BMP, GFR #### [address] [address] CO2 [Moles/Vol] 25 mmol/L Normal 22-32 [facility] ([place]) Comment on above: Performed By: #### C BC, ADIFF, ANEU #### [place] [address] #### BMP, GFR #### [address] [address] Creatinine [Mass/Vol] 1.24 mg/dL High 0.50-1.20 [facility] ([place]) Comment on above: Performed By: #### C BC, ADIFF, ANEU #### [place] [address] #### BMP, GFR #### [address] [address] Electrolyte Balance 6.0 mEq/L Normal 4.0-15.0 [facility] ([place]) Comment on above: Performed By: #### C BC, ADIFF, ANEU #### [place] [address] #### BMP, GFR #### [address] [address] Glucose [Mass/Vol] 81 mg/dL Low 82-115 [facility] ([place]) Comment on above: Performed By: #### C BC, ADIFF, ANEU #### [place] [address] #### BMP, GFR #### [address] [address] Potassium [Moles/Vol] 3.3 mmol/L Low 3.5-5.0 [facility] ([place]) Comment on above: Performed By: #### C BC, ADIFF, ANEU #### [address] [address] #### BMP, GFR #### [address] [address] Sodium [Moles/Vol] 145 mmol/L Normal 136-145 [facility] ([place]) Comment on above: Performed By: #### C BC, ADIFF, ANEU #### [address] [address] #### BMP, GFR #### [address] [address] Urea nitrogen [Mass/Vol] 18.0 mg/dL Normal 8.0-22.0 [facility] ([place]) Comment on above: Performed By: #### C BC, ADIFF, ANEU #### [address] [address] #### BMP, GFR #### [address] [address] Urea nitrogen/Creatinine [Mass ratio] 14.5 ratio Normal 10.0-22.0 [facility] ([place]) Comment on above: Performed By: #### C BC, SHELBIEIFF, ANEU #### [address] [address] #### BMP, GFR #### [address] [address] CBCon 08-17-2019 Erythrocyte distribution width (RBC) [Ratio] 15.5 % Normal 11.5-15.5 [facility] ([place]) Comment on above: Performed By: #### C BC, ADIFF, ANEU #### [address] [address] #### BMP, GFR #### [address] [address] Hematocrit (Bld) [Volume fraction] 32.8 % Low 34.0-46.0 [facility] ([place]) Comment on above: Performed By: #### C OKSANA TORREZ, ANEU #### [place] [address] #### BMP, GFR #### [place] [address] Hemoglobin (Bld) [Mass/Vol] 10.7 G/dL Low 12.0-16.0 [facility] ([place]) Comment on above: Performed By: #### C OKSANA TORREZ, ANEU #### [place] [address] #### BMP, GFR #### [place] [address] MCH (RBC) [Entitic mass] 28.6 pg Normal 27.0-33.0 [facility] ([place] Comment on above: Performed By: #### OKSANA MACIEL, ANEU #### [place] [address] #### BMP, GFR #### [place] [address] MCHC (RBC) [Mass/Vol] 32.6 G/dL Normal 32.0-36.0 [facility] ([place]) Comment on above: Performed By: #### OKSANA MACIEL, ANEU #### [place] [address] #### BMP, GFR #### [place] [address] MCV (RBC) [Entitic vol] 87.6 fL Normal 80.0-99.0 [facility] ([place]) Comment on above: Performed By: #### OKSANA MACIEL, ANEU #### [place] [address] #### BMP, GFR #### [place] [address] Platelet mean volume (Bld) [Entitic vol] 9.7 fL Normal 6.6-10.5 [facility] ([place]) Comment on above: Performed By: #### C BC, SHELBIEIFF, ANEU #### [address] [address] #### BMP, GFR #### [address] [address] Platelets (Bld) [#/Vol] 196 10 3/mcL Normal 150-450 [facility] ([place]) Comment on above: Performed By: #### C BC, ADIFF, ANEU #### [address] [address] #### BMP, GFR #### [address] [address] RBC (Bld) [#/Vol] 3.75 10 6/mcL Low 4.10-5.30 [facility] ([place]) Comment on above: Performed By: #### C OKSANA TORREZ, ANEU #### [place] [address] #### BMP, GFR #### [address] [address] WBC (Bld) [#/Vol] 6.70 10 3/mcL Normal 4.50-10.80 [facility] ([place]) Comment on above: Performed By: #### C SHELBIE TORREZIFF, ANEU #### [address] [address] #### BMP, GFR #### [address] [address] MGon 08-17-2019 Magnesium [Mass/Vol] 1.9 mg/dL Normal 1.6-2.4 [facility] ([place]) Comment on above: Performed By: #### C BC, ADIFF, ANEU #### [address] [address] #### BMP, GFR #### [address] [address] PHOSon 08-17-2019 Phosphate [Mass/Vol] 1.6 mg/dL Low 2.5-4.5 [facility] ([place]) Comment on above: Performed By: #### C BCOKSANA, ANEU #### [place] [address] [place], [place] [address] #### BMP, GFR #### [address] [address] US RENALon 08-17-2019 US RENAL ORIGINAL US RENAL Clinical Statement: Deranged kidney function Comparison: None Findings: The length and diameter of the kidneys are within normal limits. The right and left kidneys measure 9.4 x 3.8 x 3.4 and 9.5 x 3.8 x 4.8 cm, respectively. The cortex to sinus echoes appear normal in relationship to each other. 1.6 cm cystic areas present in the RIGHT renal sinus. No evidence of hydronephrosis is seen. Masses that distort renal cortical echogenicity or the cortical contours are not seen. There is no free fluid seen in the abdomen or in the retroperitoneum. Urinary bladder is normally distended. IMPRESSION: Normal examination of the kidneys. No hydronephrosis or abnormal parenchymal echogenicity. Small RIGHT parapelvic cyst versus extrarenal pelvis. Interpreted By: Fredi Galvez MD Preliminary Report By: Fredi Galvez MD Electronically Signed By: Fredi Galvez MD Dictated Date: 08/17/2019 3:26:14 AM Prelim Date: 08/17/2019 3:26:14 AM Sign Date: 08/17/2019 3:29:11 AM Ordering Provider:Rick Chino [facility] ([place]) .Auto Diffon 08-16-2019 Ammonia (P) [Mass/Vol] 0.80 10 3/mcL Normal 0.09-1.40 [facility] ([place]) Comment on above: Performed By: #### C OKSANA TORREZ, ANEU #### [place] [address] [place], [place] [address] #### BMP, GFR #### [address] [address] Basophils (Bld) [#/Vol] 0.00 10 3/mcL Normal 0.00-0.27 [facility] ([place]) Comment on above: Performed By: #### C BC, OKSANA, ANEU #### [address] [place] [address] #### BMP, GFR #### [address] [address] Basophils/100 WBC (Bld) 0.6 % Normal 0.0-2.5 [facility] ([place]) Comment on above: Performed By: #### C BC, ADIFF, ANEU #### [address] [address] #### BMP, GFR #### [address] [address] Eosinophils (Bld) [#/Vol] 0.10 10 3/mcL Normal 0.00-0.65 [facility] ([place]) Comment on above: Performed By: #### C BC, ADIFF, ANEU #### [place] [id number] #### BMP, GFR #### [address] [address] Eosinophils/100 WBC (Bld) 0.7 % Normal 0.0-6.0 [facility] ([place]) Comment on above: Performed By: #### C BC, ADIFF, ANEU #### [place] [address] #### BMP, GFR #### [address] [address] Lymphocytes (Bld) [#/Vol] 1.80 10 3/mcL Normal 0.90-4.32 [facility] ([place]) Comment on above: Performed By: #### C BC, ADIFF, ANEU #### [address] [address] #### BMP, GFR #### [address] [address] Lymphocytes/100 WBC (Bld) 22.9 % Normal 20.0-40.0 [facility] ([place]) Comment on above: Performed By: #### C BC, ADIFF, ANEU #### [place] [id number] #### BMP, GFR #### [address] [address] Monocytes/100 WBC (Bld) 10.3 % Normal 2.0-13.0 [facility] ([place]) Comment on above: Performed By: #### C BC, ADIFF, ANEU #### [place] [address] [address] #### BMP, GFR #### [address] [address] Neutrophils/100 WBC (Bld) 65.5 % Normal 50.0-75.0 [facility] ([place]) Comment on above: Performed By: #### C BC, ADIFF, ANEU #### [address] [address] #### BMP, GFR #### [address] [address] .GFRon 08-16-2019 GFR 39 ml/min/1.73sqm Normal [facility] ([place]) Comment on above: Result Comment: GFR Population mean for , Non- Americans Ages 20-29 = 116 mL/min/1.73 sq.m. Ages 30-39 = 107 mL/min/1.73 sq.m. Ages 40-49 = 99 mL/min/1.73 sq.m. Ages 50-59 = 93 mL/min/1.73 sq.m. Ages 60-69 = 85 mL/min/1.73 sq.m. Ages 70+ = 75 mL/min/1.73 sq.m. Chronic Kidney Disease: Less than 60 mL/min/1.73 square meters End Stage Renal Disease: Less than 15 mL/min/1.73 square meters Performed By: #### C BC, ADIFF, ANEU #### [address] [address] #### BMP, GFR #### [address] [address] GFR Non- 32 ml/min/1.73sqm Normal [facility] ([place]) Comment on above: Result Comment: GFR Population mean for , Non- Americans Ages 20-29 = 116 mL/min/1.73 sq.m. Ages 30-39 = 107 mL/min/1.73 sq.m. Ages 40-49 = 99 mL/min/1.73 sq.m. Ages 50-59 = 93 mL/min/1.73 sq.m. Ages 60-69 = 85 mL/min/1.73 sq.m. Ages 70+ = 75 mL/min/1.73 sq.m. Chronic Kidney Disease: Less than 60 mL/min/1.73 square meters End Stage Renal Disease: Less than 15 mL/min/1.73 square meters Performed By: #### C OKSANA TORREZ, ANEU #### [place] [address] #### BMP, GFR #### [place] [address] .NEUABSon 08-16-2019 Neutrophils (Bld) [#/Vol] 5.30 10 3/mcL Normal 2.25-8.10 [facility] ([place]) Comment on above: Performed By: #### OKSANA MACIEL, ANEU #### [place] [address] #### BMP, GFR #### [place] [address] CAIONon 08-16-2019 Calcium Ionized 1.43 mmol/L High 1.12-1.32 [facility] ([place]) Comment on above: Performed By: #### OKSANA MACIEL, ANEU #### [place] [address] #### BMP, GFR #### [place] [address] CAURon 08-16-2019 Calcium [Mass/Vol] 15.2 mg/dL Normal [facility] ([place]) Comment on above: Performed By: #### OKSANA MACIEL, ANEU #### [place] [address] #### BMP, GFR #### [place] [address] CBCon 08-16-2019 Erythrocyte distribution width (RBC) [Ratio] 15.8 % High 11.5-15.5 [facility] ([place]) Comment on above: Performed By: #### C BC, ADIFF, ANEU #### [place] [address] #### BMP, GFR #### [address] [address] Hematocrit (Bld) [Volume fraction] 29.4 % Low 34.0-46.0 [facility] ([place]) Comment on above: Performed By: #### C BC, ADIFF, ANEU #### [place] [address] #### BMP, GFR #### [place] [address] Hemoglobin (Bld) [Mass/Vol] 9.8 G/dL Low 12.0-16.0 [facility] ([place]) Comment on above: Performed By: #### C BC, ADIFF, ANEU #### [place] [address] #### BMP, GFR #### [address] [address] MCH (RBC) [Entitic mass] 28.9 pg Normal 27.0-33.0 [facility] ([place]) Comment on above: Performed By: #### C BC, ADIFF, ANEU #### [place] [address] #### BMP, GFR #### [place] [address] MCHC (RBC) [Mass/Vol] 33.3 G/dL Normal 32.0-36.0 [facility] ([place]) Comment on above: Performed By: #### C BC, ADIFF, ANEU #### [place] [address] #### BMP, GFR #### [address] [address] MCV (RBC) [Entitic vol] 86.6 fL Normal 80.0-99.0 [facility] ([place]) Comment on above: Performed By: #### C BCSHELBIEIFF, ANEU #### [address] [address] #### BMP, GFR #### [address] [address] Platelet mean volume (Bld) [Entitic vol] 9.6 fL Normal 6.6-10.5 [facility] ([place]) Comment on above: Performed By: #### C BC, SHELBIEIFF, ANEU #### [place] [address] #### BMP, GFR #### [address] [address] Platelets (Bld) [#/Vol] 179 10 3/mcL Normal 150-450 [facility] ([place]) Comment on above: Performed By: #### C SHELBIE TORREZIFF, ANEU #### [place] [address] #### BMP, GFR #### [place] [address] RBC (Bld) [#/Vol] 3.39 10 6/mcL Low 4.10-5.30 [facility] ([place]) Comment on above: Performed By: #### C OKSANA TORREZ, ANEU #### [address] [address] #### BMP, GFR #### [address] [address] WBC (Bld) [#/Vol] 8.00 10 3/mcL Normal 4.50-10.80 [facility] ([place]) Comment on above: Performed By: #### C BC, ADIFF, ANEU #### [address] [address] #### BMP, GFR #### [address] [address] CMPon 08-16-2019 Albumin/Globulin [Mass ratio] 1.1 {ratio} Normal 0.9-1.6 [facility] ([place]) Comment on above: Performed By: #### C BC ADIFF, ANEU #### [address] [address] #### BMP, GFR #### [address] [address] ALP [Catalytic activity/Vol] 53 U/L Normal 38-126 [facility] ([place]) Comment on above: Performed By: #### C BC, ADIFF, ANEU #### [address] [address] #### BMP, GFR #### [address] [address] Bili Total 0.4 mg/dL Normal 0.2-1.2 [facility] ([place]) Comment on above: Result Comment: Use of this assay is not recommended for patients undergoing treatment with eltrombopag due to the potential for falsely elevated results. Performed By: #### C BC, ADIFF, ANEU #### [place] [address] #### BMP, GFR #### [address] [address] Creatinine [Mass/Vol] 1.55 mg/dL High 0.50-1.20 [facility] ([place]) Comment on above: Performed By: #### C BC, ADIFF, ANEU #### [place] [address] #### BMP, GFR #### [address] [address] Globulin (S) [Mass/Vol] 2.6 G/dL Normal 1.5-3.8 A [facility] ([place]) Comment on above: Performed By: #### C BC, ADIFF, ANEU #### [address] [address] #### BMP, GFR #### [address] [address] Protein [Mass/Vol] 5.4 G/dL Low 6.0-8.5 [facility] ([place]) Comment on above: Performed By: #### C BC, ADIFF, ANEU #### [address] [address] #### BMP, GFR #### [address] [address] Urea nitrogen/Creatinine [Mass ratio] 16.1 ratio Normal 10.0-22.0 [facility] ([place]) Comment on above: Performed By: #### C BC, ADIFF, ANEU #### [address] [address] #### BMP, GFR #### [address] [address] Albumin [Mass/Vol] 2.8 G/dL Low 3.2-4.8 [facility] ([place]) Comment on above: Performed By: #### C BC, ADIFF, ANEU #### [address] [address] #### BMP, GFR #### [address] [address] ALT [Catalytic activity/Vol] 18 U/L Normal 10-49 [facility] ([place]) Comment on above: Performed By: #### C BC, ADIFF, ANEU #### [address] [address] #### BMP, GFR #### [address] [address] AST [Catalytic activity/Vol] 21 U/L Normal 8-34 [facility] ([place]) Comment on above: Performed By: #### C BC, ADIFF, ANEU #### [address] [address] #### BMP, GFR #### [address] [address] Calcium [Mass/Vol] 10.3 mg/dL High 8.4-10.1 [facility] ([place]) Comment on above: Performed By: #### C BC, ADIFF, ANEU #### [address] [address] #### BMP, GFR #### [address] [address] Chloride [Moles/Vol] 113 mmol/L High 98-110 [facility] ([place]) Comment on above: Performed By: #### C BC, ADIFF, ANEU #### [address] [address] #### BMP, GFR #### [address] [address] CO2 [Moles/Vol] 28 mmol/L Normal 22-32 [facility] ([place]) Comment on above: Performed By: #### C BC, ADIFF, ANEU #### [address] [address] #### BMP, GFR #### [address] [address] Electrolyte Balance 5.0 mEq/L Normal 4.0-15.0 [facility] ([place]) Comment on above: Performed By: #### C BC, ADIFF, ANEU #### [address] [address] #### BMP, GFR #### [address] [address] Glucose [Mass/Vol] 85 mg/dL Normal 82-115 [facility] ([place]) Comment on above: Performed By: #### C BC, ADIFF, ANEU #### [address] [address] #### BMP, GFR #### [address] [address] Potassium [Moles/Vol] 3.2 mmol/L Low 3.5-5.0 [facility] ([place]) Comment on above: Performed By: #### C BC, ADIFF, ANEU #### [address] [address] #### BMP, GFR #### [address] [address] Sodium [Moles/Vol] 146 mmol/L High 136-145 [facility] ([place]) Comment on above: Performed By: #### C BC, ADIFF, ANEU #### [address] [address] #### BMP, GFR #### [place] [address] Urea nitrogen [Mass/Vol] 25.0 mg/dL High 8.0-22.0 [facility] ([place]) Comment on above: Performed By: #### C BC, ADIFF, ANEU #### [address] [address] #### BMP, GFR #### [place] [address] SPEon 08-16-2019 Protein [Mass/Vol] 6.3 G/dL Normal 6.0-8.5 [facility] ([place]) Comment on above: Performed By: #### C BC, ADIFF, ANEU #### [place] [address] #### BMP, GFR #### [place] [address] UAon 08-16-2019 Color (U) Yellow Normal [facility] ([place]) Comment on above: Performed By: #### C BC, ADIFF, ANEU #### [place] [address] #### BMP, GFR #### [place] [address] Glucose (U) [Mass/Vol] Negative Normal Negative [facility] ([place]) Comment on above: Performed By: #### C BC, ADIFF, ANEU #### [place] [address] #### BMP, GFR #### [place] [address] Ketones Ql (U) Negative Normal Neg-Trace [facility] ([place]) Comment on above: Performed By: #### C BC, ADIFF, ANEU #### [place] [address] #### BMP, GFR #### [place] [address] UA Appear Clear Normal Clear [facility] ([place]) Comment on above: Performed By: #### C BC, ADIFF, ANEU #### [address] [address] #### BMP, GFR #### [address] [address] UA Blood Negative Normal Neg-Trace [facility] ([place]) Comment on above: Performed By: #### C BC, ADIFF, ANEU #### [address] [address] #### BMP, GFR #### [address] [address] UA Leuk Est Trace Normal Negative [facility] ([place]) Comment on above: Performed By: #### C BC, ADIFF, ANEU #### [address] [address] #### BMP, GFR #### [address] [address] UA Nitrite Negative Normal Negative [facility] ([place]) Comment on above: Performed By: #### C BC, ADIFF, ANEU #### [address] [address] #### BMP, GFR #### [address] [address] UA pH 7.0 Normal 5.0 - 8.0 [facility] ([place]) Comment on above: Performed By: #### C BC, ADIFF, ANEU #### [place] [address] #### BMP, GFR #### [address] [address] UA Protein 30 mg/dL Normal Negative [facility] ([place]) Comment on above: Performed By: #### C BC, ADIFF, ANEU #### [place] [address] #### BMP, GFR #### [address] [address] UA Spec Grav 1.010 Normal 1.006-1.029 [facility] ([place]) Comment on above: Performed By: #### C BC, ADIFF, ANEU #### [address] [address] #### BMP, GFR #### [place] [address] UA Specimen Type Clean Catch Normal [facility] ([place]) Comment on above: Performed By: #### C BC, ADIFF, ANEU #### [address] [address] #### BMP, GFR #### [place] [address] UA Urobilinogen 0.2 E.U./dL Normal 0.2-1.0 [facility] ([place]) Comment on above: Performed By: #### C BC, ADIFF, ANEU #### [place] [address] #### BMP, GFR #### [place] [address] Urobilinogen Qn (U) Negative Normal Neg-Trace [facility] ([place]) Comment on above: Performed By: #### C BC, ADIFF, ANEU #### [place] [address] #### BMP, GFR #### [place] [address] CAIONon 08-15-2019 Calcium Ionized 1.35 mmol/L High 1.12-1.32 [facility] ([place]) Comment on above: Performed By: #### C BC, ADIFF, ANEU #### [place] [address] #### BMP, GFR #### [place] [address] CKon 08-15-2019 CK [Catalytic activity/Vol] 65 U/L Normal 7-185 [facility] ([place]) Comment on above: Performed By: #### C BC, ADIFF, ANEU #### [address] [address] #### BMP, GFR #### [address] [address] MGon 08-15-2019 Magnesium [Mass/Vol] 2.3 mg/dL Normal 1.6-2.4 [facility] ([place]) Comment on above: Performed By: #### OKSANA MACIEL, ANEU #### [place] [address] #### BMP, GFR #### [place] [address] PHOSon 08-15-2019 Phosphate [Mass/Vol] 2.8 mg/dL Normal 2.5-4.5 [facility] ([place]) Comment on above: Performed By: #### OKSANA MACIEL, ANEU #### [place] [address] #### BMP, GFR #### [place] [address] PTHon 08-15-2019 PTH, Intact 24.8 pg/mL Normal 18.5-88.0 [facility] ([place]) Comment on above: Performed By: #### OKSANA MACIEL, ANEU #### [place] [address] #### BMP, GFR #### [place] [address] TSHon 08-15-2019 TSH Qn 3.380 mcIU/mL Normal 0.360-3.740 [facility] ([place]) Comment on above: Performed By: #### OKSANA MACIEL, ANEU #### [place] [address] #### BMP, GFR #### [place] [address] VIDHon 08-15-2019 Vit. D 25-Hydroxy 92 ng/mL Normal [facility] ([place]) Comment on above: Result Comment: Inte rpretive Values Based on Total 25(OH)D: Severe Deficiency <20 ng/mL Mild to Moderate Deficiency 20-30 ng/mL Optimum Levels 30-100 ng/mL Toxicity Possible >100 ng/mL Performed By: #### OKSANA MACIEL, ANEU #### [place] [address] [place], [place] [address] #### BMP, GFR #### [place] [address] [place] [address] XR CHEST 2 VIEWSon 0 XR CHEST 2 VIEWS ORIGINAL XR CHEST 2 VIEWS CLINICAL STATEMENT: hypercalcemia COMPARISON: 08/15/2019 at 9:56 AM FINDINGS: The cardiomediastinal contours are normal. The aorta is atherosclerotic. The lungs are emphysematous. There is no consolidation, vascular congestion, pleural effusion, or pneumothorax. No displaced fractures are identified. IMPRESSION: No acute radiographic findings. Interpreted By: Sudhakar Mckeon MD Preliminary Report By: Sudhakar Mckeon MD Electronically Signed By: Sudhakar Mckeon MD Dictated Date: 08/15/2019 6:22:14 PM Prelim Date: 08/15/2019 6:22:14 PM Sign Date: 08/15/2019 6:24:02 PM Ordering Provider:Chau Milian [facility] ([place]) XR KNEE 1 OR 2 VIEWS RIGHTon 01-28-2019 XR KNEE 1 OR 2 VIEWS RIGHT ORIGINAL XR KNEE portable AP and crosstable lateral 2 VIEWS RIGHT CLINICAL STATEMENT: Status Post Arthroplasty , follow-up knee replacement surgery COMPARISON: CT 01/13/2019 FINDINGS: There is lateral hemiarthroplasty and placement of the lateral femorotibial compartment with a prosthesis that show satisfactory alignment. Expected postoperative change in the soft tissues. IMPRESSION: Expected postoperative appearance following lateral hemiarthroplasty. Interpreted By: Eulogio Jose MD Preliminary Report By: Eulogio Jose MD Electronically Signed By: Eulogio Jose MD Dictated Date: 01/28/2019 9:21:56 PM Prelim Date: 01/28/2019 9:21:56 PM Sign Date: 01/28/2019 9:22:52 PM Ordering Provider:Rick Smallwood [facility] ([place]) CT KNEE W/O CONTRAST RIGHTon 01-14-2019 CT KNEE W/O CONTRAST RIGHT ORIGINAL \H\CT of the right knee without contrast Technique:\N\ Axial images of the knee are obtained with sagittal and coronal reconstructions. Limited axial imaging is also performed through the ipsilateral hip and ankle joints. This exam was performed according to our departmental dose-optimization program which includes automated exposure control, adjustment of the mA and/or kVp according to patient size and/or use of iterative reconstruction technique where applicable. COMPARISON: None Indication: varus deformity not elsewhere classified right knee, unilateral primary osteoarthritis of the right knee, knee pain chronic \H\Results:\N\ KNEE: Medial compartment: Moderate subchondral sclerosis without joint space narrowing or marginal spurring. Lateral compartment: Marginal spurring, subchondral sclerosis and moderate compartment narrowing. There is faint calcification of the meniscus. Patellofemoral compartment: Moderate patellofemoral marginal spurring and subchondral sclerosis more prominent laterally. There is moderate to high-grade chondromalacia also prominent laterally. Other: There is small joint effusion. There may be a very small medial popliteal cyst. Hip: Limited axial images through the hip joint. 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 Ankle: Limited axial images of the ankle are also obtained. \H\\N\\H\IMPRESSION:\N \ 1. Tricompartment degenerative osteoarthritis. There is some calcification of the lateral meniscus. 2. Small joint effusion. Interpreted By: Eulogio Jose MD Preliminary Report By: Eulogio Jose MD Electronically Signed By: Eulogio Jose MD Dictated Date: 01/14/2019 12:12:59 AM Prelim Date: 01/14/2019 12:12:59 AM Sign Date: 01/14/2019 12:18:03 AM Ordering Provider:Rick Chino [facility] ([place]) .Auto Diffon 01-13-2019 Ammonia (P) [Mass/Vol] 0.90 10 3/mcL Normal 0.15-1.00 [facility] ([place]) Comment on above: Performed By: #### C OKSANA TORREZ ANEU #### [address] [address] #### BMP, GFR #### [address] [address] Basophils (Bld) [#/Vol] 0.10 10 3/mcL Normal 0.00-0.19 [facility] ([place]) Comment on above: Performed By: #### C OKSANA TORREZ ANEU #### [address] [address] #### BMP, GFR #### [address] [address] Basophils/100 WBC (Bld) 0.7 % Normal 0.0-2.5 A [facility] ([place]) Comment on above: Performed By: #### C BC, ADIFF, ANEU #### [address] [address] #### BMP, GFR #### [address] [address] Eosinophils (Bld) [#/Vol] 0.30 10 3/mcL Normal 0.00-0.40 [facility] ([place]) Comment on above: Performed By: #### C BC, ADIFF, ANEU #### [place] [address] #### BMP, GFR #### [address] [address] Eosinophils/100 WBC (Bld) 2.9 % Normal 0.0-7.0 [facility] ([place]) Comment on above: Performed By: #### C BC, ADIFF, ANEU #### [place] [address] #### BMP, GFR #### [address] [address] Lymphocytes (Bld) [#/Vol] 2.10 10 3/mcL Normal 0.77-3.85 [facility] ([place]) Comment on above: Performed By: #### C BC, ADIFF, ANEU #### [place] [address] #### BMP, GFR #### [address] [address] Lymphocytes/100 WBC (Bld) 21.9 % Normal 10.0-50.0 [facility] ([place]) Comment on above: Performed By: #### C BC, ADIFF, ANEU #### [place] [address] #### BMP, GFR #### [address] [address] Monocytes/100 WBC (Bld) 10.0 % Normal 1.7-13.0 A [facility] ([place]) Comment on above: Performed By: #### C BC, ADIFF, ANEU #### [address] [address] #### BMP, GFR #### [address] [address] Neutrophils/100 WBC (Bld) 64.5 % Normal 37.0-80.0 [facility] ([place] Comment on above: Performed By: #### C BC, ADIFF, ANEU #### [place] [address] [address] #### BMP, GFR #### [address] [address] .GFRon 01-13-2019 GFR Non- 54 ml/min/1.73sqm Normal [facility] ([place]) Comment on above: Result Comment: GFR Population mean for , Non- Americans Ages 20-29 = 116 mL/min/1.73 sq.m. Ages 30-39 = 107 mL/min/1.73 sq.m. Ages 40-49 = 99 mL/min/1.73 sq.m. Ages 50-59 = 93 mL/min/1.73 sq.m. Ages 60-69 = 85 mL/min/1.73 sq.m. Ages 70+ = 75 mL/min/1.73 sq.m. Chronic Kidney Disease: Less than 60 mL/min/1.73 square meters End Stage Renal Disease: Less than 15 mL/min/1.73 square meters Performed By: #### C BC ADIFF, ANEU #### [address] [address] #### BMP, GFR #### [address] [address] GFR 66 ml/min/1.73sqm Normal [facility] ([place]) Comment on above: Result Comment: GFR Population mean for , Non- Americans Ages 20-29 = 116 mL/min/1.73 sq.m. Ages 30-39 = 107 mL/min/1.73 sq.m. Ages 40-49 = 99 mL/min/1.73 sq.m. Ages 50-59 = 93 mL/min/1.73 sq.m. Ages 60-69 = 85 mL/min/1.73 sq.m. Ages 70+ = 75 mL/min/1.73 sq.m. Chronic Kidney Disease: Less than 60 mL/min/1.73 square meters End Stage Renal Disease: Less than 15 mL/min/1.73 square meters Performed By: #### C BC ADIFF, ANEU #### [place] [address] #### BMP, GFR #### [address] [address] .NEUABSon 01-13-2019 Neutrophils (Bld) [#/Vol] 6.00 10 3/mcL Normal 2.85-6.16 [facility] ([place]) Comment on above: Performed By: #### C SHELBIE TORREZIFF, ANEU #### [place] [address] #### BMP, GFR #### [place] [address] BMPon 01-13-2019 Calcium [Mass/Vol] 9.8 mg/dL Normal 8.4-10.2 [facility] ([place]) Comment on above: Performed By: #### OKSANA MACIEL, ANEU #### [place] [address] #### BMP, GFR #### [place] [address] Chloride [Moles/Vol] 106 mmol/L Normal 98-107 [facility] ([place]) Comment on above: Performed By: #### C BC ADIFF, ANEU #### [place] [address] #### BMP, GFR #### [place] [address] CO2 [Moles/Vol] 32 mmol/L High 23-31 [facility] ([place]) Comment on above: Performed By: #### [place] BC ADIFF, ANEU #### [place] [address] #### BMP, GFR #### [address] [address] Creatinine [Mass/Vol] 0.99 mg/dL Normal 0.55-1.02 [facility] ([place]) Comment on above: Performed By: #### C BC, ADIFF, ANEU #### [address] [address] #### BMP, GFR #### [address] [address] Electrolyte Balance 6.0 mEq/L Normal [facility] ([place]) Comment on above: Performed By: #### C BC, ADIFF, ANEU #### [address] [address] #### BMP, GFR #### [address] [address] Glucose [Mass/Vol] 107 mg/dL Normal 83-110 [facility] ([place]) Comment on above: Performed By: #### C BC, ADIFF, ANEU #### [address] [address] #### BMP, GFR #### [address] [address] Potassium [Moles/Vol] 4.6 mmol/L Normal 3.5-5.1 [facility] ([place]) Comment on above: Performed By: #### C BC, ADIFF, ANEU #### [address] [address] #### BMP, GFR #### [address] [address] Sodium [Moles/Vol] 144 mmol/L Normal 136-145 [facility] ([place]) Comment on above: Performed By: #### C BC, ADIFF, ANEU #### [address] [address] #### BMP, GFR #### [address] [address] Urea nitrogen [Mass/Vol] 18 mg/dL Normal 7-18 [facility] ([place]) Comment on above: Performed By: #### C BC, ADIFF, ANEU #### [address] [address] #### BMP, GFR #### [address] [address] Urea nitrogen/Creatinine [Mass ratio] 18 ratio Normal 7-27 [facility] ([place]) Comment on above: Performed By: #### C BC, ADIFF, ANEU #### [place] [address] #### BMP, GFR #### [address] [address] CBCon 01-13-2019 Erythrocyte distribution width (RBC) [Ratio] 15.2 % High 11.5-14.5 [facility] ([place]) Comment on above: Performed By: #### C BC, ADIFF, ANEU #### [place] [address] #### BMP, GFR #### [place] [address] Hematocrit (Bld) [Volume fraction] 36.8 % Low 37.0-47.0 [facility] ([place] Comment on above: Performed By: #### C BC, ADIFF, ANEU #### [place] [address] #### BMP, GFR #### [address] [address] Hemoglobin (Bld) [Mass/Vol] 12.3 G/dL Normal 12.0-16.0 [facility] ([place]) Comment on above: Performed By: #### C BC, ADIFF, ANEU #### [address] [address] #### BMP, GFR #### [address] [address] MCH (RBC) [Entitic mass] 29.5 pg Normal 27.0-31.2 [facility] ([place]) Comment on above: Performed By: #### C BC, ADIFF, ANEU #### [place] [address] #### BMP, GFR #### [address] [address] MCHC (RBC) [Mass/Vol] 33.3 G/dL Normal 33.0-37.0 [facility] ([place]) Comment on above: Performed By: #### C BC, ADIFF, ANEU #### [place] [address] #### BMP, GFR #### [address] [address] MCV (RBC) [Entitic vol] 88.5 fL Normal 80.0-94.0 A [facility] ([place]) Comment on above: Performed By: #### C BC, ADIFF, ANEU #### [place] [address] #### BMP, GFR #### [address] [address] Platelet mean volume (Bld) [Entitic vol] 10.6 fL High 7.4-10.4 [facility] ([place]) Comment on above: Performed By: #### C BC, ADIFF, ANEU #### [place] [address] #### BMP, GFR #### [address] [address] Platelets (Bld) [#/Vol] 264 10 3/mcL Normal 130-400 [facility] ([place]) Comment on above: Performed By: #### C BC, ADIFF, ANEU #### [place] [address] #### BMP, GFR #### [address] [address] RBC (Bld) [#/Vol] 4.16 10 6/mcL Low 4.20-5.40 [facility] ([place]) Comment on above: Performed By: #### C BC, ADIFF, ANEU #### [place] [address] #### BMP, GFR #### [address] [address] WBC (Bld) [#/Vol] 9.40 10 3/mcL Normal 4.60-10.80 [facility] ([place]) Comment on above: Performed By: #### C OKSANA TORREZ, ANEU #### [address] [address] #### BMP, GFR #### [address] [address] .Auto Diffon 12-18-2018 Ammonia (P) [Mass/Vol] 1.40 10 3/mcL High 0.15-1.00 [facility] ([place]) Comment on above: Performed By: #### C OKSANA TORREZ, ANEU #### [address] [address] Basophils (Bld) [#/Vol] 0.00 10 3/mcL Normal 0.00-0.19 [facility] ([place]) Comment on above: Performed By: #### OKSANA MACIEL, ANEU #### [address] [address] Basophils/100 WBC (Bld) 0.1 % Normal 0.0-2.5 A [facility] ([place]) Comment on above: Performed By: #### OKSANA MACIEL, ANEU #### [address] [address] Eosinophils (Bld) [#/Vol] 0.00 10 3/mcL Normal 0.00-0.40 [facility] ([place]) Comment on above: Performed By: #### C OKSANA TORREZ, ANEU #### [address] [address] Eosinophils/100 WBC (Bld) 0.0 % Normal 0.0-7.0 [facility] ([place]) Comment on above: Performed By: #### OKSANA MACIEL, ANEU #### [address] [address] Lymphocytes (Bld) [#/Vol] 1.30 10 3/mcL Normal 0.77-3.85 [facility] ([place]) Comment on above: Performed By: #### C OKSANA TORREZ, ANEU #### [address] [address] Lymphocytes/100 WBC (Bld) 7.7 % Low 10.0-50.0 [facility] ([place]) Comment on above: Performed By: #### C OKSANA TORREZ, ANEU #### [place] [address] [address] Monocytes/100 WBC (Bld) 8.0 % Normal 1.7-13.0 [facility] ([place]) Comment on above: Performed By: #### C OKSANA TORREZ, ANEU #### [place] [address] [address] Neutrophils/100 WBC (Bld) 84.2 % High 37.0-80.0 [facility] ([place]) Comment on above: Performed By: #### OKSANA MACIEL, ANEU #### [place] [address] [address] .NEUABSon 12-18-2018 Neutrophils (Bld) [#/Vol] 14.30 10 3/mcL High 2.85-6.16 [facility] ([place] Comment on above: Performed By: #### C OKSANA TORREZ, ANEU #### [place] [address] [address] CBCon 12-18-2018 Erythrocyte distribution width (RBC) [Ratio] 13.8 % Normal 11.5-14.5 [facility] ([place]) Comment on above: Performed By: #### C OKSANA TORREZ, ANEU #### [place] [address] [address] Hematocrit (Bld) [Volume fraction] 36.6 % Low 37.0-47.0 [facility] ([place]) Comment on above: Performed By: #### OKSANA MACIEL, ANEU #### [place] [address] [address] Hemoglobin (Bld) [Mass/Vol] 11.9 G/dL Low 12.0-16.0 [facility] ([place]) Comment on above: Performed By: #### OKSANA MACIEL, JADEN #### [address] [address] MCH (RBC) [Entitic mass] 28.7 pg Normal 27.0-31.2 [facility] ([place]) Comment on above: Performed By: #### OKSANA MACIEL, ANEU #### [address] [address] MCHC (RBC) [Mass/Vol] 32.5 G/dL Low 33.0-37.0 [facility] ([place]) Comment on above: Performed By: #### OKSANA MACIEL ANEU #### [place] [address] [address] MCV (RBC) [Entitic vol] 88.4 fL Normal 80.0-94.0 [facility] ([place]) Comment on above: Performed By: #### OKSANA MACIEL, ANEU #### [address] [address] Platelet mean volume (Bld) [Entitic vol] 10.4 fL Normal 7.4-10.4 [facility] ([place]) Comment on above: Performed By: #### OKSANA MACIEL, JADEN #### [address] [address] Platelets (Bld) [#/Vol] 166 10 3/mcL Normal 130-400 [facility] ([place] Comment on above: Performed By: #### OKSANA MACIEL, ANEU #### [place] [address] [address] RBC (Bld) [#/Vol] 4.14 10 6/mcL Low 4.20-5.40 [facility] ([place]) Comment on above: Performed By: #### OKSANA MACIEL, ANEU #### [address] [address] WBC (Bld) [#/Vol] 17.00 10 3/mcL High 4.60-10.80 [facility] ([place]) Comment on above: Performed By: #### C BC, ADIFF, ANEU #### [place] [address] [place], [place] [address] XR KNEE 1 OR 2 VIEWS LEFTon 12-17-2018 XR KNEE 1 OR 2 VIEWS LEFT ORIGINAL XR KNEE 1 OR 2 VIEWS LEFT CLINICAL STATEMENT: Status Post Arthroplasty COMPARISON: None FINDINGS: A lateral tibiofemoral compartment arthroplasty noted. There is no fracture seen in the [place] bone. Air and fluid seen in the soft tissues. Skin edin noted. IMPRESSION: Status post LEFT knee hemiarthroplasty Interpreted By: Wero Whittaker MD Preliminary Report By: Wero Whittaker MD Electronically Signed By: Wero Whittaker MD Dictated Date: 12/17/2018 3:57:36 PM Prelim Date: 12/17/2018 3:57:36 PM Sign Date: 12/17/2018 3:58:12 PM Normal [facility] ([place] KNEE W/O CONTRAST LEFTon 12-10-2018 CT KNEE W/O CONTRAST LEFT ORIGINAL CT KNEE W/O CONTRAST LEFT This exam was performed according to our departmental dose optimization program, and includes the following measures where applicable: automated exposure control, adjustment of the mAs and/or kVp according to patient size and/or exam, and an iterative reconstruction algorithm. CLINICAL STATEMENT: valgus deformity, chronic LEFT knee pain COMPARISON: None FINDINGS: Images were acquired at the LEFT hip, knee, and ankle. Sagittal and coronal reformations of the knee were performed. There is tricompartmental joint space narrowing and osteophyte formation. Lateral tibiofemoral compartment is most severely narrowed. There is mild lateral positioning of the patella. A small effusion is present. 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 The LEFT hip and ankle are intact. IMPRESSION: Degenerative changes of the LEFT knee. No acute abnormality. Interpreted By: Dasia Mast MD Preliminary Report By: Dasia Mast MD Electronically Signed By: Dasia Mast MD Dictated Date: 12/10/2018 9:08:55 AM Prelim Date: 12/10/2018 9:08:55 AM Sign Date: 12/10/2018 9:38:46 AM Normal [facility] ([place]) .Auto Diffon 12-06-2018 Ammonia (P) [Mass/Vol] 0.70 10 3/mcL Normal 0.15-1.00 [facility] ([place]) Comment on above: Performed By: #### C BC, ADIFF, ANEU #### [address] [address] #### BMP, GFR #### [address] [address] Basophils (Bld) [#/Vol] 0.00 10 3/mcL Normal 0.00-0.19 [facility] ([place]) Comment on above: Performed By: #### C BC, ADIFF, ANEU #### [place] [address] #### BMP, GFR #### [address] [address] Basophils/100 WBC (Bld) 0.7 % Normal 0.0-2.5 [facility] ([place]) Comment on above: Performed By: #### C BC, ADIFF, ANEU #### [place] [address] #### BMP, GFR #### [address] [address] Eosinophils (Bld) [#/Vol] 0.10 10 3/mcL Normal 0.00-0.40 [facility] ([place]) Comment on above: Performed By: #### C BC, ADIFF, ANEU #### [place] [address] #### BMP, GFR #### [address] [address] Eosinophils/100 WBC (Bld) 1.2 % Normal 0.0-7.0 [facility] ([place]) Comment on above: Performed By: #### C BC, ADIFF, ANEU #### [place] [address] #### BMP, GFR #### [address] [address] Lymphocytes (Bld) [#/Vol] 1.70 10 3/mcL Normal 0.77-3.85 [facility] ([place]) Comment on above: Performed By: #### C BC, ADIFF, ANEU #### [address] [address] #### BMP, GFR #### [address] [address] Lymphocytes/100 WBC (Bld) 27.7 % Normal 10.0-50.0 [facility] ([place]) Comment on above: Performed By: #### C BC, ADIFF, ANEU #### [address] [address] #### BMP, GFR #### [address] [address] Monocytes/100 WBC (Bld) 10.8 % Normal 1.7-13.0 [facility] ([place]) Comment on above: Performed By: #### C BC, ADIFF, ANEU #### [address] [address] #### BMP, GFR #### [address] [address] Neutrophils/100 WBC (Bld) 59.6 % Normal 37.0-80.0 [facility] ([place]) Comment on above: Performed By: #### C BC, ADIFF, ANEU #### [address] [address] #### BMP, GFR #### [address] [address] .GFRon 12-06-2018 GFR 67 ml/min/1.73sqm Normal [facility] ([place]) Comment on above: Result Comment: GFR Population mean for , Non- Americans Ages 20-29 = 116 mL/min/1.73 sq.m. Ages 30-39 = 107 mL/min/1.73 sq.m. Ages 40-49 = 99 mL/min/1.73 sq.m. Ages 50-59 = 93 mL/min/1.73 sq.m. Ages 60-69 = 85 mL/min/1.73 sq.m. Ages 70+ = 75 mL/min/1.73 sq.m. Chronic Kidney Disease: Less than 60 mL/min/1.73 square meters End Stage Renal Disease: Less than 15 mL/min/1.73 square meters Performed By: #### C BC, ADIFF, ANEU #### [address] [address] #### BMP, GFR #### [address] [address] GFR Non- 56 ml/min/1.73sqm Normal [facility] ([place]) Comment on above: Result Comment: GFR Population mean for , Non- Americans Ages 20-29 = 116 mL/min/1.73 sq.m. Ages 30-39 = 107 mL/min/1.73 sq.m. Ages 40-49 = 99 mL/min/1.73 sq.m. Ages 50-59 = 93 mL/min/1.73 sq.m. Ages 60-69 = 85 mL/min/1.73 sq.m. Ages 70+ = 75 mL/min/1.73 sq.m. Chronic Kidney Disease: Less than 60 mL/min/1.73 square meters End Stage Renal Disease: Less than 15 mL/min/1.73 square meters Performed By: #### C BC, ADIFF, ANEU #### [address] [address] #### BMP, GFR #### [address] [address] .NEUABSon 12-06-2018 Neutrophils (Bld) [#/Vol] 3.70 10 3/mcL Normal 2.85-6.16 [facility] ([place]) Comment on above: Performed By: #### C BC, ADIFF, ANEU #### [address] [address] #### BMP, GFR #### [address] [address] BMPon 12-06-2018 Calcium [Mass/Vol] 10.7 mg/dL High 8.4-10.2 [facility] ([place]) Comment on above: Performed By: #### C BC, ADIFF, ANEU #### [address] [address] #### BMP, GFR #### [address] [address] Chloride [Moles/Vol] 104 mmol/L Normal 98-107 [facility] ([place]) Comment on above: Performed By: #### C BC, ADIFF, ANEU #### [address] [address] #### BMP, GFR #### [address] [address] CO2 [Moles/Vol] 30 mmol/L Normal 23-31 [facility] ([place]) Comment on above: Performed By: #### C BC, ADIFF, ANEU #### [address] [address] #### BMP, GFR #### [address] [address] Creatinine [Mass/Vol] 0.97 mg/dL Normal 0.55-1.02 [facility] ([place]) Comment on above: Performed By: #### C BC, ADIFF, ANEU #### [address] [address] #### BMP, GFR #### [address] [address] Electrolyte Balance 10.0 mEq/L Normal [facility] ([place]) Comment on above: Performed By: #### C BC, ADIFF, ANEU #### [address] [address] #### BMP, GFR #### [address] [address] Glucose [Mass/Vol] 92 mg/dL Normal 83-110 [facility] ([place]) Comment on above: Performed By: #### C BC, ADIFF, ANEU #### [address] [address] #### BMP, GFR #### [address] [address] Potassium [Moles/Vol] 3.9 mmol/L Normal 3.5-5.1 [facility] ([place]) Comment on above: Performed By: #### C BC, ADIFF, ANEU #### [address] [address] #### BMP, GFR #### [address] [address] Sodium [Moles/Vol] 144 mmol/L Normal 136-145 [facility] ([place]) Comment on above: Performed By: #### C BC, ADIFF, ANEU #### [address] [address] #### BMP, GFR #### [address] [address] Urea nitrogen [Mass/Vol] 12 mg/dL Normal 7-18 [facility] ([place]) Comment on above: Performed By: #### C BC, ADIFF, ANEU #### [address] [address] #### BMP, GFR #### [address] [address] Urea nitrogen/Creatinine [Mass ratio] 12 ratio Normal 7-27 [facility] ([place]) Comment on above: Performed By: #### C BC, ADIFF, ANEU #### [address] [address] #### BMP, GFR #### [address] [address] CBCon 12-06-2018 Erythrocyte distribution width (RBC) [Ratio] 13.5 % Normal 11.5-14.5 [facility] ([place]) Comment on above: Performed By: #### C BC, ADIFF, ANEU #### [address] [address] #### BMP, GFR #### [address] [address] Hematocrit (Bld) [Volume fraction] 39.6 % Normal 37.0-47.0 [facility] ([place]) Comment on above: Performed By: #### C BC, ADIFF, ANEU #### [address] [address] #### BMP, GFR #### [address] [address] Hemoglobin (Bld) [Mass/Vol] 13.2 G/dL Normal 12.0-16.0 [facility] ([place]) Comment on above: Performed By: #### C BC, ADIFF, ANEU #### [address] [address] #### BMP, GFR #### [address] [address] MCH (RBC) [Entitic mass] 29.3 pg Normal 27.0-31.2 [facility] ([place]) Comment on above: Performed By: #### C BC, ADIFF, ANEU #### [place] [address] #### BMP, GFR #### [address] [address] MCHC (RBC) [Mass/Vol] 33.4 G/dL Normal 33.0-37.0 [facility] ([place]) Comment on above: Performed By: #### C BC, ADIFF, ANEU #### [place] [address] #### BMP, GFR #### [address] [address] MCV (RBC) [Entitic vol] 87.8 fL Normal 80.0-94.0 [facility] ([place]) Comment on above: Performed By: #### C BC, ADIFF, ANEU #### [place] [address] #### BMP, GFR #### [address] [address] Platelet mean volume (Bld) [Entitic vol] 10.2 fL Normal 7.4-10.4 [facility] ([place]) Comment on above: Performed By: #### C BC, ADIFF, ANEU #### [address] [address] #### BMP, GFR #### [facility] [address] [place], [place] [address] Platelets (Bld) [#/Vol] 196 10 3/mcL Normal 130-400 [facility] ([place]) Comment on above: Performed By: #### C BC, ADIFF, ANEU #### [address] [address] #### BMP, GFR #### [address] [address] RBC (Bld) [#/Vol] 4.50 10 6/mcL Normal 4.20-5.40 [facility] ([place]) Comment on above: Performed By: #### C BC, ADIFF, ANEU #### [address] [address] #### BMP, GFR #### [address] [address] WBC (Bld) [#/Vol] 6.10 10 3/mcL Normal 4.60-10.80 [facility] ([place]) Comment on above: Performed By: #### C BC, ADIFF, ANEU #### [address] [address] #### BMP, GFR #### [address] [address] Vital Signs Date Time Vital Sign Value Performing Clinician Flor collado 01-27-2025 09:31-0400 Body temperature 97.6 [degF] Dr. Ashley Roberson MD Work Phone: [facility] 01-27-2025 09:31-0400 Diastolic blood pressure 55 mm[Hg] Dr. Ashley Roberson MD Work Phone: [facility] 01-27-2025 09:31-0400 Heart rate 87 /min Dr. Ashley Roberson MD Work Phone: [facility] 01-27-2025 09:31-0400 Respiratory rate 16 /min Dr. Ashley Roberson MD Work Phone: [facility] 01-27-2025 09:31-0400 SaO2% (BldA) [Mass fraction] 98 % Dr. Ashley Roberson MD Work Phone: [facility] 01-27-2025 09:31-0400 Systolic blood pressure 105 mm[Hg] Dr. Ashley Roberson MD Work Phone: [facility] 01-24-2025 17:11-0400 Body height 165.[address] Ashley Roberson MD Work Phone: [facility] 01-24-2025 17:11-0400 Body mass index (BMI) [Ratio] 20.5 kg/m2 Dr. Ashley Roberson MD Work Phone: [facility] 01-24-2025 17:11-0400 Body weight 55.[address] Ashley Roebrson MD Work Phone: [facility] 10-22-2024 16:39-0400 Diastolic blood pressure 76 mm[Hg] Ashley Roberson MD Work Phone: [facility] 10-22-2024 16:39-0400 Heart rate 91 /min Ashley Roberson MD Work Phone: [facility] 10-22-2024 16:39-0400 Systolic blood pressure 117 mm[Hg] Ashley Roberson MD Work Phone: [facility] 10-22-2024 16:12-0400 Body mass index (BMI) [Ratio] 22.21 kg/m2 Ashley Roberson MD Work Phone: [facility] 10-22-2024 16:12-0400 Body weight 58.7 kg Ashley Roberson MD Work Phone: [facility] 10-22-2024 16:12-0400 Respiratory rate 16 /min Ashley Roberson MD Work Phone: [facility] 10-22-2024 16:12-0400 SaO2% (BldA) [Mass fraction] 98 % Ashley Roberson MD Work Phone: [facility] 09-30-2024 13:38-0400 Body mass index (BMI) [Ratio] 22.44 kg/m2 Kristin Dean APRN.CNP Work Phone: [facility] 09-30-2024 13:38-0400 Body weight 59.3 kg Kristin Nicolas LOFT WORKER.ICT ACCOUNT MANAGER Work Phone: [facility] 09-30-2024 13:38-0400 Diastolic blood pressure 84 mm[Hg] Kristin Nicolas LOFT WORKER.ICT ACCOUNT MANAGER Work Phone: [facility] 09-30-2024 13:38-0400 Heart rate 100 /min Kristin Nicolas LOFT WORKER.ICT ACCOUNT MANAGER Work Phone: [facility] 09-30-2024 13:38-0400 Respiratory rate 12 /min Kristin Nicolas LOFT WORKER.ICT ACCOUNT MANAGER Work Phone: [facility] 09-30-2024 13:38-0400 SaO2% (BldA) [Mass fraction] 99 % Kristin Nicolas LOFT WORKER.ICT ACCOUNT MANAGER Work Phone: [facility] 09-30-2024 13:38-0400 Systolic blood pressure 132 mm[Hg] Kristin Nicolas LOFT WORKER.ICT ACCOUNT MANAGER Work Phone: [facility] 09-29-2024 12:06-0400 Diastolic blood pressure 83 mm[Hg] Lilia Vazquez LOFT WORKER.CLASSIFICATION AND TREATMENT DIRECTOR Work Phone: [facility] 09-29-2024 12:06-0400 Heart rate 94 /min Lilia Vazquez LOFT WORKER.CLASSIFICATION AND TREATMENT DIRECTOR Work Phone: [facility] 09-29-2024 12:06-0400 Systolic blood pressure 147 mm[Hg] Lilia Vazquez LOFT WORKER.CLASSIFICATION AND TREATMENT DIRECTOR Work Phone: [facility] 09-29-2024 12:05-0400 Respiratory rate 16 /min Lilia Vazquez LOFT WORKER.CLASSIFICATION AND TREATMENT DIRECTOR Work Phone: [facility] 08-19-2024 09:38-0400 Body height 162.6 cm Ashley Roberson MD Work Phone: [facility] 08-19-2024 09:38-0400 Body mass index (BMI) [Ratio] 22.66 kg/m2 Ashley Roberson MD Work Phone: [facility] 08-19-2024 09:38-0400 Body weight 59.88 kg Ashley Roberson MD Work Phone: [facility] 08-19-2024 09:38-0400 Diastolic blood pressure 73 mm[Hg] Ashley Roberson MD Work Phone: [facility] 08-19-2024 09:38-0400 Heart rate 102 /min Ashley Roberson MD Work Phone: [facility] 08-19-2024 09:38-0400 SaO2% (BldA) [Mass fraction] 97 % Ashley Roberson MD Work Phone: [facility] 08-19-2024 09:38-0400 Systolic blood pressure 110 mm[Hg] Ashley Roberson MD Work Phone: [facility] 07-17-2024 10:48-0400 Body height 162.6 cm Ashley Roberson MD Work Phone: [facility] 07-17-2024 10:48-0400 Body mass index (BMI) [Ratio] 22.31 kg/m2 Ashley Roberson MD Work Phone: [facility] 07-17-2024 10:48-0400 Body weight 58.97 kg Ashley Roberson MD Work Phone: [facility] 07-17-2024 10:48-0400 Diastolic blood pressure 78 mm[Hg] Ashley Roberson MD Work Phone: [facility] 07-17-2024 10:48-0400 Heart rate 102 /min Ashley Roberson MD Work Phone: [facility] 07-17-2024 10:48-0400 SaO2% (BldA) [Mass fraction] 99 % Ashley Roberson MD Work Phone: [facility] 07-17-2024 10:48-0400 Systolic blood pressure 118 mm[Hg] Ashley Roberson MD Work Phone: [facility] 05-13-2024 10:47-0500 Body height 162.6 cm Ashley Roberson MD Work Phone: [facility] 05-13-2024 10:47-0500 Body mass index (BMI) [Ratio] 22.31 kg/m2 Ashley Roberson MD Work Phone: [facility] 05-13-2024 10:47-0500 Body weight 58.97 kg Ashley Roberson MD Work Phone: [facility] 05-13-2024 10:47-0500 Diastolic blood pressure 80 mm[Hg] Ashley Roberson MD Work Phone: [facility] 05-13-2024 10:47-0500 Heart rate 106 /min Ashley Roberson MD Work Phone: [facility] 05-13-2024 10:47-0500 SaO2% (BldA) [Mass fraction] 95 % Ashley Roberson MD Work Phone: [facility] 05-13-2024 10:47-0500 Systolic blood pressure 118 mm[Hg] Ashley Roberson MD Work Phone: [facility] 04-25-2024 09:17-0500 Body mass index (BMI) [Ratio] 22.77 kg/m2 Ashley Roberson MD Work Phone: [facility] 04-25-2024 09:17-0500 Body weight 58.3 kg Ashley Roberson MD Work Phone: [facility] 04-25-2024 09:17-0500 Diastolic blood pressure 78 mm[Hg] Ashley Roberson MD Work Phone: [facility] 04-25-2024 09:17-0500 Heart rate 90 /min Ashley Roberson MD Work Phone: [facility] 04-25-2024 09:17-0500 SaO2% (BldA) [Mass fraction] 99 % Ashley Roberson MD Work Phone: [facility] 04-25-2024 09:17-0500 Systolic blood pressure 116 mm[Hg] Ashley Roberson MD Work Phone: [facility] 02-19-2024 11:54-0500 Body mass index (BMI) [Ratio] 22.14 kg/m2 Ashley Roberson MD Work Phone: [facility] 02-19-2024 11:54-0500 Body weight 56.7 kg Ashley Roberson MD Work Phone: [facility] 02-19-2024 11:54-0500 Diastolic blood pressure 70 mm[Hg] Ashley Roberson MD Work Phone: [facility] 02-19-2024 11:54-0500 Heart rate 73 /min Ashley Roberson MD Work Phone: [facility] 02-19-2024 11:54-0500 Respiratory rate 16 /min Ashley Roberson MD Work Phone: [facility] 02-19-2024 11:54-0500 Systolic blood pressure 110 mm[Hg] Ashley Roberson MD Work Phone: [facility] 12-28-2023 10:42-0400 Body mass index (BMI) [Ratio] 22.21 kg/m2 Myrna Plata Jr., MD Work Phone: [facility] 12-28-2023 10:42-0400 Body weight 56.88 kg Myrna Plata Jr., MD Work Phone: [facility] 12-28-2023 10:42-0400 Diastolic blood pressure 68 mm[Hg] Myrna Plata Jr., MD Work Phone: [facility] 12-28-2023 10:42-0400 Heart rate 82 /min Myrna Plata Jr., MD Work Phone: [facility] 12-28-2023 10:42-0400 SaO2% (BldA) [Mass fraction] 100 % Myrna Plata Jr., MD Work Phone: [facility] 12-28-2023 10:42-0400 Systolic blood pressure 111 mm[Hg] Myrna Plata Jr., MD Work Phone: [facility] 11-21-2023 10:32-0400 Body mass index (BMI) [Ratio] 22.67 kg/m2 Ashley Roberson MD Work Phone: [facility] 11-21-2023 10:32-0400 Body weight 58.06 kg Ashley Roberson MD Work Phone: [facility] 10-18-2023 12:01-0400 Body mass index (BMI) [Ratio] 22.5 kg/m2 Ashley Roberson MD Work Phone: [facility] 10-18-2023 12:01-0400 Body weight 57.61 kg Ashley Roberson MD Work Phone: [facility] 10-18-2023 12:01-0400 Diastolic blood pressure 74 mm[Hg] Ashley Roberson MD Work Phone: [facility] 10-18-2023 12:01-0400 Heart rate 59 /min Ashley Roberson MD Work Phone: [facility] 10-18-2023 12:01-0400 Respiratory rate 14 /min Ashley Roberson MD Work Phone: [facility] 10-18-2023 12:01-0400 SaO2% (BldA) [Mass fraction] 96 % Ashley Roberson MD Work Phone: [facility] 10-18-2023 12:01-0400 Systolic blood pressure 130 mm[Hg] Ashley Roberson MD Work Phone: [facility] 10-08-2023 09:41-0400 Body mass index (BMI) [Ratio] 22.73 kg/m2 Keenan Berger LOFT WORKER.ICT ACCOUNT MANAGER Work Phone: [facility] 10-08-2023 09:41-0400 Body temperature 97.9 [degF] Keenan Berger LOFT WORKER.ICT ACCOUNT MANAGER Work Phone: [facility] 10-08-2023 09:41-0400 Body weight 58.2 kg Keenan Berger APRN.ICT ACCOUNT MANAGER Work Phone: [facility] 10-08-2023 09:41-0400 Diastolic blood pressure 70 mm[Hg] Keenan Ab LOFT WORKER.ICT ACCOUNT MANAGER Work Phone: [facility] 10-08-2023 09:41-0400 Heart rate 66 /min Keenan Berger LOFT WORKER.ICT ACCOUNT MANAGER Work Phone: [facility] 10-08-2023 09:41-0400 Respiratory rate 16 /min Keenan Berger LOFT WORKER.ICT ACCOUNT MANAGER Work Phone: [facility] 10-08-2023 09:41-0400 SaO2% (BldA) [Mass fraction] 96 % Keenan Ab LOFT WORKER.ICT ACCOUNT MANAGER Work Phone: [facility] 10-08-2023 09:41-0400 Systolic blood pressure 118 mm[Hg] Keenan Berger LOFT WORKER.ICT ACCOUNT MANAGER Work Phone: [facility] 09-10-2023 15:37-0400 Body mass index (BMI) [Ratio] 22.5 kg/m2 Myrna Plata Jr., MD Work Phone: [facility] 09-10-2023 15:37-0400 Body weight 57.61 kg Myrna Plata Jr., MD Work Phone: [facility] 09-10-2023 15:37-0400 Diastolic blood pressure 74 mm[Hg] Myrna Plata Jr., MD Work Phone: [facility] 09-10-2023 15:37-0400 Heart rate 93 /min Myrna Plata Jr., MD Work Phone: [facility] 09-10-2023 15:37-0400 Respiratory rate 16 /min Myrna Plata Jr., MD Work Phone: [facility] 09-10-2023 15:37-0400 SaO2% (BldA) [Mass fraction] 96 % Myrna Plata Jr., MD Work Phone: [facility] 09-10-2023 15:37-0400 Systolic blood pressure 136 mm[Hg] Myrna Plata Jr., MD Work Phone: [facility] 07-17-2023 10:00-0400 Diastolic blood pressure 92 mm[Hg] Burak Wilson PT [facility] 07-17-2023 10:00-0400 Heart rate 73 /min Burak Wilson PT [facility] 07-17-2023 10:00-0400 Systolic blood pressure 163 mm[Hg] Burak Wilson PT [facility] 07-16-2023 09:01-0400 Diastolic blood pressure 70 mm[Hg] Yvonne Older LOFT WORKER.ICT ACCOUNT MANAGER Work Phone: [facility] 07-16-2023 09:01-0400 Systolic blood pressure 128 mm[Hg] Yvonne Older LOFT WORKER.ICT ACCOUNT MANAGER Work Phone: [facility] 07-16-2023 08:38-0400 Body height 160 cm Yvonne Older LOFT WORKER.ICT ACCOUNT MANAGER Work Phone: [facility] 07-16-2023 08:38-0400 Body temperature 97.9 [degF] Yvonne Older LOFT WORKER.ICT ACCOUNT MANAGER Work Phone: [facility] 07-16-2023 08:38-0400 Body weight 56.7 kg Yvonne Older LOFT WORKER.ICT ACCOUNT MANAGER Work Phone: [facility] 07-16-2023 08:38-0400 Heart rate 88 /min Yvonne Older LOFT WORKER.ICT ACCOUNT MANAGER Work Phone: [facility] 07-16-2023 08:38-0400 Respiratory rate 12 /min Yvonne Older LOFT WORKER.ICT ACCOUNT MANAGER Work Phone: [facility] 07-16-2023 08:38-0400 SaO2% (BldA) [Mass fraction] 98 % Yvonne Older LOFT WORKER.ICT ACCOUNT MANAGER Work Phone: [facility] 06-27-2023 11:12-0400 Body weight 57.61 kg Yvonne Older LOFT WORKER.ICT ACCOUNT MANAGER Work Phone: [facility] 06-27-2023 11:12-0400 Diastolic blood pressure 84 mm[Hg] Yvonne Older LOFT WORKER.ICT ACCOUNT MANAGER Work Phone: [facility] 06-27-2023 11:12-0400 Heart rate 90 /min Yvonne Older LOFT WORKER.ICT ACCOUNT MANAGER Work Phone: [facility] 06-27-2023 11:12-0400 Respiratory rate 16 /min Yvonne Older LOFT WORKER.ICT ACCOUNT MANAGER Work Phone: [facility] 06-27-2023 11:12-0400 SaO2% (BldA) [Mass fraction] 97 % Yvonne Older LOFT WORKER.ICT ACCOUNT MANAGER Work Phone: [facility] 06-27-2023 11:12-0400 Systolic blood pressure 152 mm[Hg] Yvonne Older LOFT WORKER.ICT ACCOUNT MANAGER Work Phone: [facility] 02-26-2023 08:27-0500 Body height 160 cm Elin Denbow PA-C Work Phone: [facility] 02-26-2023 08:27-0500 Body temperature 97.3 [degF] Elin Denbow PA-C Work Phone: [facility] 02-26-2023 08:27-0500 Body weight 56.25 kg Elin Denbow PA-C Work Phone: [facility] 02-26-2023 08:27-0500 Diastolic blood pressure 56 mm[Hg] Elin Denbow PA-C Work Phone: [facility] 02-26-2023 08:27-0500 Heart rate 97 /min Elin Denbow PA-C Work Phone: [facility] 02-26-2023 08:27-0500 Respiratory rate 12 /min Elin Denbow PA-C Work Phone: [facility] 02-26-2023 08:27-0500 SaO2% (BldA) [Mass fraction] 98 % Elin Denbow PA-C Work Phone: [facility] 02-26-2023 08:27-0500 Systolic blood pressure 130 mm[Hg] Elin Denbow PA-C Work Phone: [facility] 12-08-2022 15:32-0400 Body temperature 99.19 [degF] Chico Mattson LOFT WORKER.ICT ACCOUNT MANAGER Work Phone: [facility] 12-08-2022 15:32-0400 Body weight 57.7 kg Chico Pendlebury LOFT WORKER.ICT ACCOUNT MANAGER Work Phone: [facility] 12-08-2022 15:32-0400 Diastolic blood pressure 76 mm[Hg] Chico Pendlebury LOFT WORKER.ICT ACCOUNT MANAGER Work Phone: [facility] 12-08-2022 15:32-0400 Heart rate 84 /min Chico Pendlebury LOFT WORKER.ICT ACCOUNT MANAGER Work Phone: [facility] 12-08-2022 15:32-0400 Respiratory rate 18 /min [facility] LOFT WORKER.ICT ACCOUNT MANAGER Work Phone: [facility] 12-08-2022 15:32-0400 SaO2% (BldA) [Mass fraction] 100 % [facility] LOFT WORKER.ICT ACCOUNT MANAGER Work Phone: [facility] 12-08-2022 15:32-0400 Systolic blood pressure 135 mm[Hg] Chico Pendlebury LOFT WORKER.ICT ACCOUNT MANAGER Work Phone: [facility] 11-22-2022 08:13-0400 Body height 160 cm Elin Denbow PA-C Work Phone: [facility] 11-22-2022 08:13-0400 Body temperature 97.2 [degF] Elin Denbow PA-C Work Phone: [facility] 11-22-2022 08:13-0400 Body weight 57.61 kg Elin Denbow PA-C Work Phone: [facility] 11-22-2022 08:13-0400 Diastolic blood pressure 70 mm[Hg] Elin Denbow PA-C Work Phone: [facility] 11-22-2022 08:13-0400 Heart rate 91 /min Elin Denbow PA-C Work Phone: [facility] 11-22-2022 08:13-0400 Respiratory rate 12 /min Elin Denbow PA-C Work Phone: [facility] 11-22-2022 08:13-0400 SaO2% (BldA) [Mass fraction] 99 % Elin Lawrence PA-C Work Phone: [facility] 11-22-2022 08:13-0400 Systolic blood pressure 130 mm[Hg] Elin Lawrence PA-C Work Phone: [facility] 08-16-2022 18:39-0400 Body height 160 cm Ashley Roberson MD Work Phone: [facility] 08-16-2022 18:39-0400 Body temperature 97.39 [degF] Ashley Roberson MD Work Phone: [facility] 08-16-2022 18:39-0400 Body weight 56.25 kg Ashley Roberson MD Work Phone: [facility] 08-16-2022 18:39-0400 Diastolic blood pressure 62 mm[Hg] Ashley Roberson MD Work Phone: [facility] 08-16-2022 18:39-0400 Heart rate 69 /min Ashley Roberson MD Work Phone: [facility] 08-16-2022 18:39-0400 Respiratory rate 12 /min Ashley Roberson MD Work Phone: [facility] 08-16-2022 18:39-0400 SaO2% (BldA) [Mass fraction] 98 % Ashley Roberson MD Work Phone: [facility] 08-16-2022 18:39-0400 Systolic blood pressure 128 mm[Hg] Ashley Roberson MD Work Phone: [facility] 12-23-2021 08:40-0400 Body height 160 cm Ashley Roberson MD Work Phone: [facility] 12-23-2021 08:40-0400 Body temperature 98.01 [degF] Ashley Roberson MD Work Phone: [facility] 12-23-2021 08:40-0400 Body weight 52.16 kg Ashley Roberson MD Work Phone: [facility] 12-23-2021 08:40-0400 Diastolic blood pressure 60 mm[Hg] Ashley Roberson MD Work Phone: [facility] 12-23-2021 08:40-0400 Heart rate 64 /min Ashley Roberson MD Work Phone: [facility] 12-23-2021 08:40-0400 Respiratory rate 12 /min Ashley Roberson MD Work Phone: [facility] 12-23-2021 08:40-0400 SaO2% (BldA) [Mass fraction] 99 % Ashley Roberson MD Work Phone: [facility] 12-23-2021 08:40-0400 Systolic blood pressure 118 mm[Hg] Ashley Roberson MD Work Phone: [facility] 11-11-2021 10:02-0400 Body weight 52.62 kg Yvonne Older LOFT WORKER.ICT ACCOUNT MANAGER Work Phone: [facility] 11-11-2021 10:02-0400 Diastolic blood pressure 76 mm[Hg] Yvonne Older LOFT WORKER.ICT ACCOUNT MANAGER Work Phone: [facility] 11-11-2021 10:02-0400 Heart rate 64 /min Yvonne Older LOFT WORKER.ICT ACCOUNT MANAGER Work Phone: [facility] 11-11-2021 10:02-0400 Respiratory rate 16 /min Yvonne Older LOFT WORKER.ICT ACCOUNT MANAGER Work Phone: [facility] 11-11-2021 10:02-0400 Systolic blood pressure 118 mm[Hg] Yvonne Older LOFT WORKER.ICT ACCOUNT MANAGER Work Phone: [facility] 09-12-2021 09:49-0400 Body height 160 cm Sahra Amador MD Work Phone: [facility] 09-12-2021 09:49-0400 Body temperature 97 [degF] Sahra Amador MD Work Phone: [facility] 09-12-2021 09:49-0400 Body weight 52.16 kg Sahra Amador MD Work Phone: [facility] 09-12-2021 09:49-0400 Diastolic blood pressure 62 mm[Hg] Sahra Amador MD Work Phone: [facility] 09-12-2021 09:49-0400 Heart rate 63 /min Sahra Amador MD Work Phone: [facility] 09-12-2021 09:49-0400 SaO2% (BldA) [Mass fraction] 96 % Sahra Amador MD Work Phone: [facility] 09-12-2021 09:49-0400 Systolic blood pressure 128 mm[Hg] Sahra Amador MD Work Phone: [facility] 08-15-2021 13:46-0400 Body height 160 cm Sahra Amador MD Work Phone: [facility] 08-15-2021 13:46-0400 Body temperature 97.9 [degF] Sahra Amador MD Work Phone: [facility] 08-15-2021 13:46-0400 Body weight 52.16 kg Sahra Amador MD Work Phone: [facility] 08-15-2021 13:46-0400 Diastolic blood pressure 65 mm[Hg] Sahra Amador MD Work Phone: [facility] 08-15-2021 13:46-0400 Heart rate 77 /min aShra Amador MD Work Phone: [facility] 08-15-2021 13:46-0400 SaO2% (BldA) [Mass fraction] 99 % Sahra Amador MD Work Phone: [facility] 08-15-2021 13:46-0400 Systolic blood pressure 144 mm[Hg] Sahra Amador MD Work Phone: [facility] 07-25-2021 10:51-0400 Body height 161.9 cm Sahra Amador MD Work Phone: [facility] 07-25-2021 10:51-0400 Body weight 52.16 kg Sahra Amador MD Work Phone: [facility] 07-25-2021 10:51-0400 Diastolic blood pressure 60 mm[Hg] Sahra Amador MD Work Phone: [facility] 07-25-2021 10:51-0400 Heart rate 93 /min Sahra Amador MD Work Phone: [facility] 07-25-2021 10:51-0400 Respiratory rate 16 /min Sahra Amador MD Work Phone: [facility] 07-25-2021 10:51-0400 SaO2% (BldA) [Mass fraction] 98 % Sahra Amador MD Work Phone: [facility] 07-25-2021 10:51-0400 Systolic blood pressure 125 mm[Hg] Sahra Amador MD Work Phone: [facility] 07-07-2021 12:58-0400 Body height 162.6 cm Sahra Amador MD Work Phone: [facility] 07-07-2021 12:58-0400 Body temperature 98.2 [degF] Sahra Amador MD Work Phone: [facility] 07-07-2021 12:58-0400 Body weight 52.62 kg Sahra Amador MD Work Phone: [facility] 07-07-2021 12:58-0400 Diastolic blood pressure 60 mm[Hg] Sahra Amador MD Work Phone: [facility] 07-07-2021 12:58-0400 Heart rate 98 /min Sahra Amador MD Work Phone: [facility] 07-07-2021 12:58-0400 SaO2% (BldA) [Mass fraction] 97 % Sahra Amador MD Work Phone: [facility] 07-07-2021 12:58-0400 Systolic blood pressure 133 mm[Hg] Sahra Amador MD Work Phone: [facility] 07-04-2021 10:47-0400 Body height 163.8 cm Ashley Roberson MD Work Phone: [facility] 07-04-2021 10:47-0400 Body temperature 97.9 [degF] Ashley Roberson MD Work Phone: [facility] 07-04-2021 10:47-0400 Body weight 52.62 kg Ashley Robersno MD Work Phone: [facility] 07-04-2021 10:47-0400 Diastolic blood pressure 60 mm[Hg] Ashley Roberson MD Work Phone: [facility] 07-04-2021 10:47-0400 Heart rate 83 /min Ashley Roberson MD Work Phone: [facility] 07-04-2021 10:47-0400 Respiratory rate 12 /min Ashley Roberson MD Work Phone: [facility] 07-04-2021 10:47-0400 SaO2% (BldA) [Mass fraction] 98 % Ashley Roberson MD Work Phone: [facility] 07-04-2021 10:47-0400 Systolic blood pressure 130 mm[Hg] Ashley Roberson MD Work Phone: [facility] Encounters Encounter Date Encounter Type Care Provider Facility Start: 02-05-2025 End: 02-05-2025 ambulatory LYN MCKEON Facility:[facility] Start: 02-02-2025 End: 02-02-2025 ambulatory ASHLEY ROBERSON Facility:[facility] Start: 01-27-2025 Non-patient / Non-visit Dr. Jonah [facility] Work Phone: Start: 01-26-2025 Non-patient / Non-visit Dr. Jonah [facility] Work Phone: Start: 01-25-2025 Non-patient / Non-visit Dr. Hugh Avila DO [facility] Work Phone: Start: 01-25-2025 Non-patient / Non-visit Dr. Michelle Jack MD -[facility] Work Phone: Start: 01-24-2025 Non-patient / Non-visit Dr. Hugh webster [facility] Work Phone: Start: 01-24-2025 ambulatory Brice Avila Facilit y:[facility] Start: 01-24-2025 End: 01-27-2025 Evaluation and management of inpatient Brice Avila Facility:[facility] Start: 12-25-2024 End: 12-25-2024 ambulatory ASHLEY ROBERSON Facility:[facility] Start: 11-21-2024 End: 11-25-2024 Telephone encounter Ashley Roberson MD Work Phone: [facility] [place] Comment on above: Refill Request Start: 11-15-2024 End: 11-17-2024 Refill Ashley Roberson MD Work Phone: [facility] [place] Comment on above: Refill Request Start: 11-10-2024 End: 11-10-2024 Telephone encounter Ashley Roberson MD Work Phone: [facility] [place] Comment on above: Patient Update Start: 11-07-2024 End: 11-07-2024 ambulatory LYN MCKEON Facility:[facility] Start: 10-31-2024 End: 10-31-2024 Telemedicine consultation with patient yLn Mckeon MD Work Phone: Functional Medicine Start: 10-31-2024 End: 10-31-2024 ambulatory Lyn Mckeon MD Work Phone: Functional Medicine Comment on above: Diarrhea, unspecifie d type (Primary Dx); Fecal urgency; Hypothyroidism, acquired; Dementia without behavioral disturbance (HCC); Cerebral amyloid angiopathy (CODE); Vitamin D deficiency; History of fall After Visit 10/31/24 Start: 10-31-2024 End: 10-31-2024 E-mail encounter from caregiver Lyn Mckeno MD Work Phone: Functional Medicine Start: 10-22-2024 End: 10-22-2024 Office outpatient visit 25 minutes Ashley Roberson MD Work Phone: Geriatrics Comment on above: Depression, unspecif ied depression type (Primary Dx); Hypothyroidism, acquired; Essential hypertension; Dementia without behavioral disturbance (HCC); Muscle cramp Start: 10-22-2024 End: 10-22-2024 ambulatory [facility] Facility:[facility] Start: 09-30-2024 End: 09-30-2024 Office outpatient visit 15 minutes Kristin Dean LOFT WORKER.ICT ACCOUNT MANAGER Work Phone: [facility] [place] Comment on above: Skin lesion of hand (Primary Dx) Start: 09-30-2024 End: 09-30-2024 ambulatory KRISTIN VALENTE Facility:[facility] Start: 09-29-2024 End: 09-29-2024 Office outpatient visit 15 minutes Lilia Vazquez LOFT WORKER.CLASSIFICATION AND TREATMENT DIRECTOR Work Phone: [facility] [place] Comment on above: Umbilicus discharge (Primary Dx); Common wart Start: 09-29-2024 End: 10-07-2024 Refill Ashley Roberson MD Work Phone: [facility] [place] Comment on above: Refill Request ([facility] local [facility]) Start: 09-10-2024 End: 09-12-2024 Telephone encounter Ashley Roberson MD Work Phone: [facility] [place] Comment on above: Medication Question Start: 09-09-2024 End: 09-10-2024 Telephone encounter Ashley Roberson MD Work Phone: [facility] [place] Comment on above: Insurance Authorizat ion Start: 09-08-2024 End: 09-08-2024 Refill Ashley Roberson MD Work Phone: [facility] [place] Comment on above: Refill Request Start: 08-27-2024 ambulatory ASHLEY ROBERSON Facility:[facility] Start: 08-21-2024 End: 10-21-2024 Follow-up encounter Ashley Roberson MD Work Phone: Geriatrics Start: 08-19-2024 End: 08-19-2024 Office outpatient visit 25 minutes Ashley Roberson MD Work Phone: [facility] [place] Comment on above: Fall, sequela (Prima ry Dx); Balance disorder; Essential hypertension; Dementia without behavioral disturbance (HCC); Contusion of scalp, sequela; Diarrhea, unspecified type Start: 08-19-2024 End: 08-19-2024 [facility] Start: 08-18-2024 End: 08-18-2024 ambulatory [facility] Facility:[facility] Start: 08-05-2024 End: 08-08-2024 ambulatory Ashley Roberson MD Work Phone: Internal Medicine [place] [id number] Start: 07-17-2024 End: 07-17-2024 [facility] Start: 07-17-2024 End: 07-17-2024 Office outpatient visit 25 minutes Ashley Roberson MD Work Phone: Geriatrics Comment on above: Functional diarrhea (Primary Dx); Moderate late onset Alzheimer's dementia without behavioral disturbance, psychotic disturbance, mood disturbance, or anxiety (HCC); Hypothyroidism, unspecified type Start: 06-23-2024 End: 06-23-2024 ambulatory LUANNE CRAIG Facility:[facility] Start: 06-23-2024 End: 06-23-2024 Nursing evaluation of patient and report Mi Nurse Work Phone: [facility] [place] Comment on above: Osteopenia of multip le sites (Primary Dx) Start: 06-17-2024 End: 06-17-[address] Ashley Roberson MD Work Phone: [facility] Work Phone: Start: 06-17-2024 End: 06-17-[address] Ashley Roberson MD -Outpatient Bone Densitometry Work Phone: Start: 06-17-2024 End: 06-17-2024 [facility] Start: 06-12-2024 End: 06-13-2024 Refill Ashley Roberson MD Work Phone: [facility] [place] Comment on above: Refill Request Start: 06-06-2024 End: 06-06-2024 Refill Ashley Roberson MD Work Phone: [facility] [place] Comment on above: Refill Request Start: 06-05-2024 End: 06-09-2024 Refill Myrna Plata MD Work Phone: Neurology Comment on above: Refill Request Start: 05-30-2024 End: 05-30-2024 Telephone encounter Ashley Roberson MD Work Phone: [facility] [place] Comment on above: Faxed to [facility] Start: 05-22-2024 End: 05-22-2024 Telephone encounter Ashley Roberson MD Work Phone: [facility] [place] Comment on above: External Referrals/r esources ([facility]) Start: 05-13-2024 End: 05-13-2024 Office outpatient visit 25 minutes Ashley Roberson MD Work Phone: [facility] [place] Comment on above: Diarrhea, unspecifie d type (Primary Dx); Age related osteoporosis, unspecified pathological fracture presence Start: 05-13-2024 End: 05-13-2024 ambulatory ASHLEY ROBERSON Facility:[facility] Start: 05-12-2024 End: 05-13-2024 Telephone encounter Ashley Roberson MD Work Phone: [facility] [place] Comment on above: lab results/appointm ent question Start: 04-28-2024 End: 04-28-2024 Telephone encounter Ashley Roberson MD Work Phone: [facility] [place] Comment on above: referral to outside' Start: 04-25-2024 End: 04-28-2024 Telephone encounter Ashley Roberson MD Work Phone: [facility] [place] Comment on above: Medication Problem Start: 04-25-2024 End: 04-25-2024 Office outpatient visit 25 minutes Ashley Roberson MD Work Phone: [facility] [place] Comment on above: Diarrhea, unspecifie d type (Primary Dx); Incontinence of feces, unspecified fecal incontinence type; Medication side effect; Hypermagnesemia Start: 04-25-2024 End: 04-25-2024 ambulatory [facility] Facility:[facility] Start: 04-16-2024 End: 04-16-2024 Telephone encounter Yvonne Valente APRN.ICT ACCOUNT MANAGER Work Phone: [facility] [place] Comment on above: Orders Start: 03-14-2024 End: 03-14-2024 Refill Myrna Plata MD Work Phone: Neurology Comment on above: Refill Request Start: 02-19-2024 End: 02-19-2024 [facility] Facility:[facility] Start: 02-19-2024 End: 02-19-2024 Patient encounter procedure Ashley Roberson MD Work Phone: [facility] [place] Comment on above: Medicare annual well ness visit, subsequent (Primary Dx); Stage 3a chronic kidney disease (HCC) Start: 02-11-2024 End: 02-11-2024 Refill Ashley Roberson MD Work Phone: [facility] [place] Comment on above: Refill Request Start: 02-05-2024 End: 02-05-2024 ambulatory Ashley Roberson MD Work Phone: [facility] Comment on above: Allied Health Visit (Medication Adherence Outreach ) Start: 01-21-2024 End: 01-21-2024 ambulatory Ashley Roberson MD Work Phone: [facility] Comment on above: Allied Health Visit (Medication Adherence Outreach/) Start: 01-18-2024 End: 01-18-2024 Refill Yvonne Valente APRN.ICT ACCOUNT MANAGER Work Phone: [facility] [place] Comment on above: Refill Request Start: 12-28-2023 End: 12-28-2023 Patient encounter procedure Myrna Plata MD Work Phone: Neurology Comment on above: Dementia without beh avioral disturbance, psychotic disturbance, mood disturbance, or anxiety, unspecified dementia severity, unspecified dementia type (HCC) (Primary Dx); Cerebral amyloid angiopathy (CODE); Balance disorder; Ataxia; Recurrent falls; History of recent traumatic injury of head; History of cervical fracture; Dementia without behavioral disturbance (HCC) Start: 12-24-2023 End: 12-24-2023 Nursing evaluation of patient and report Mi Nurse Work Phone: [facility] [place] Comment on above: Osteopenia of multip le sites (Primary Dx) Start: 11-21-2023 End: 11-21-2023 Patient encounter procedure Ashley Roberson MD Work Phone: [facility] [place] Comment on above: Dementia without beh avioral disturbance (HCC) (Primary Dx); Obstructive sleep apnea syndrome Start: 10-29-2023 ambulatory Ashley Ortega Work Phone: [facility] Comment on above: Allied Health Visit (Medication Adherence Outreach/) Start: 10-19-2023 End: 06-17-2024 Telephone encounter Ashley Roberson MD Work Phone: [facility] [place] Comment on above: Consult Results Start: 10-18-2023 Telephone encounter Myrna Plata MD Work Phone: Neurology Start: 10-18-2023 End: 10-18-2023 Office outpatient visit 25 minutes Ashley Roberson MD Work Phone: [facility] [place] Comment on above: Leg cramps (Primary Dx); Diarrhea, unspecified type; Iron deficiency; Dementia without behavioral disturbance (HCC) Start: 10-16-2023 End: 10-16-2023 Subsequent hospital visit by physician [facility] (I-Stat/1.5t) Work Phone: Radiology Comment on above: Ataxia [R27.0] Start: 10-08-2023 End: 10-08-2023 Patient encounter procedure Keenan Berger APRN.CNP Work Phone: [facility] Comment on above: Foreign body of righ t ear, initial encounter (Primary Dx) Start: 10-02-2023 ambulatory Ashley Ortega Work Phone: Internal Medicine [facility] Start: 09-10-2023 End: 09-10-2023 Patient encounter procedure Myrna Plata MD Work Phone: Neurology Comment on above: Dementia without beh avioral disturbance, psychotic disturbance, mood disturbance, or anxiety, unspecified dementia severity, unspecified dementia type (HCC) (Primary Dx); Balance disorder; Shaking; Cervical myelopathy (HCC); Ataxia; Cerebral amyloid angiopathy (CODE); History of cervical fracture; Recurrent falls; History of recent traumatic injury of head Start: 08-16-2023 End: 08-16-2023 OT/PT/Speech Visit Burak [facility] Comment on above: Balance disorder (Pr imary Dx) Start: 08-02-2023 End: 08-02-2023 OT/PT/Speech Visit Burak Wilson [facility] Comment on above: Balance disorder (Pr imary Dx) Start: 07-26-2023 End: 07-26-2023 OT/PT/Speech Visit Burak Wilson [facility] Comment on above: Balance disorder (Pr imary Dx) Start: 07-17-2023 End: 07-17-2023 OT/PT/Speech Visit Burak Wilson [facility] Comment on above: Balance disorder (Pr imary Dx) Start: 07-16-2023 End: 07-16-2023 Patient encounter procedure Yvonne Valente APRN.CNP Work Phone: [facility] [place] Comment on above: Dementia without beh avioral disturbance (HCC) (Primary Dx); Balance disorder; Shaking; Hypothyroidism, acquired Start: 06-28-2023 Telephone encounter Yvonne Valente APRN.CNP Work Phone: [facility] [place] Comment on above: Results Start: 06-27-2023 End: 06-27-2023 Patient encounter procedure Yvonne Valente APRN.CNP Work Phone: [facility] [place] Comment on above: Memory change (Prima ry Dx); Balance disorder; Tremor; Chest pain, unspecified type; Hypothyroidism, acquired; Age-related osteoporosis without current pathological fracture Start: 06-22-2023 End: 06-22-2023 Nursing evaluation of patient and report Mi Nurse Work Phone: [facility] [place] Comment on above: Osteopenia of multip le sites (Primary Dx) Start: 06-11-2023 Telephone encounter Elin Shultz PA-C Work Phone: [facility] [place] Comment on above: Orders Start: 06-06-2023 Telephone encounter Elin Shultz PA-C Work Phone: [facility] [place] Comment on above: Orders Start: 05-24-2023 ambulatory Elin Lawrence PA-C Work Phone: [facility] [place] Comment on above: Prolia Injections Start: 03-08-2023 Refill Yvonne JoseICT ACCOUNT MANAGER Work Phone: [facility] [place] Comment on above: Refill Request Start: 02-27-2023 Refill Ashley Ortega Work Phone: [facility] [place] Comment on above: Refill Request Start: 02-26-2023 End: 02-26-2023 Patient encounter procedure Elin Lawrence PA-C Work Phone: [facility] [place] Comment on above: Mixed hyperlipidemia (Primary Dx); Vitamin D insufficiency; History of hypercalcemia; Age-related osteoporosis without current pathological fracture Start: 01-23-2023 End: 01-23-2023 ambulatory LUANNE CRAIG Facility:[facility] Start: 12-10-2022 Telephone encounter Zoey Ma APRN.ICT ACCOUNT MANAGER Work Phone: [facility] Comment on above: Results Start: 12-08-2022 End: 12-08-2022 Office outpatient visit 25 minutes Chico Mattson APRN.ICT ACCOUNT MANAGER Work Phone: [place] [facility] Comment on above: Urinary frequency (P rimary Dx) Start: 11-22-2022 End: 11-22-2022 Patient encounter procedure Elin Lawrence PA-C Work Phone: [facility] [place] Comment on above: Mixed hyperlipidemia (Primary Dx); Hypothyroidism, acquired; Dementia without behavioral disturbance (HCC); Cerebral amyloid angiopathy (CODE); At risk for falls; Heat intolerance; High vitamin D level; Magnesium deficiency Start: 11-17-2022 Refill Ashley Ortega Work Phone: [facility] [place] Comment on above: Refill Request Start: 08-16-2022 End: 08-16-2022 Patient encounter procedure Ashley Roberson MD Work Phone: [facility] [place] Comment on above: Hypothyroidism, acqu ired (Primary Dx); Osteopenia of multiple sites; Hyperlipidemia, unspecified hyperlipidemia type; Urinary tract infection without hematuria, site unspecified; Stage 3a chronic kidney disease (HCC); Dementia without behavioral disturbance (HCC) Start: 05-02-2022 Telephone encounter Ashley mccray MD Work Phone: [facility] [place] Comment on above: Patient Update Start: 01-17-2022 End: 01-17-2022 ambulatory [facility] Work Phone: Start: 01-17-2022 End: 01-17-2022 Patient encounter procedure [facility]-Outpatient Bone Densitometry Start: 01-09-2022 End: 01-09-2022 ambulatory Rosangela Vaughn MD Work Phone: Functional Medicine Comment on above: 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); Jaret albicans infection Start: 01-09-2022 End: 01-09-2022 Telemedicine consultation with patient Rosangela Vaughn MD Work Phone: [facility] Start: 12-23-2021 End: 12-23-2021 Patient encounter procedure Ashley Roberson MD Work Phone: [facility] [place] Comment on above: Urinary tract infect ion without hematuria, site unspecified (Primary Dx); Cerebral amyloid angiopathy (CODE); Dementia without behavioral disturbance, unspecified dementia type Start: 12-06-2021 ambulatory Brielle Max Work Phone: [employer] Start: 11-25-2021 Refill Ashley Ortega Work Phone: [facility] [place] Comment on above: Refill Request Start: 11-17-2021 End: 11-17-2021 ambulatory Rosangela Vaughn MD Work Phone: Functional Medicine Comment on above: Memory deficits (Amanda patti Dx); Deficiency of multiple nutrient elements; B12 deficiency; Essential fatty acid (EFA) deficiency Start: 11-17-2021 End: 11-17-2021 Telemedicine consultation with patient Rosangela Vaughn MD Work Phone: [facility] Start: 11-11-2021 End: 11-11-2021 Patient encounter procedure Yvonne Valente APRN.CNP Work Phone: [facility] [place] Comment on above: Hypothyroidism, acqu ired (Primary Dx); H/O neck surgery; Numbness of left hand; Memory deficits; Essential hypertension; B-complex deficiency; Anemia, unspecified type Start: 10-26-2021 ambulatory [facility] Comment on above: CDM Enrollment (inSi ght Enrollment) Start: 10-25-2021 ambulatory [facility] Comment on above: CDM Enrollment (InSi ght Enrollment MCM Sent) Start: 10-18-2021 ambulatory Ashley Ortega Work Phone: Internal Medicine [facility] Start: 09-12-2021 End: 09-12-2021 Patient encounter procedure Sahra Amador MD Work Phone: [facility] Comment on above: Closed nondisplaced fracture of sixth cervical vertebra with delayed healing, unspecified fracture morphology, subsequent encounter (Primary Dx) Start: 09-08-2021 Grabiel Tolentino MD Work Phone: Endocrinology Comment on above: Refill Request Start: 09-07-2021 Telephone encounter Ashley mccray MD Work Phone: [facility] [place] Comment on above: PT Plan of Care Start: 09-02-2021 Grabiel Tolentino MD Work Phone: Endocrinology Comment on above: Refill Request Start: 08-15-2021 End: 08-15-2021 Patient encounter procedure Sahra Amador MD Work Phone: [facility] Comment on above: Closed nondisplaced fracture of sixth cervical vertebra with delayed healing, unspecified fracture morphology, subsequent encounter (Primary Dx) Start: 08-15-2021 Telephone encounter Case ortega [facility] Comment on above: Home Care (Decline) Start: 08-09-2021 ambulatory Jacinta villarreal MD Work Phone: Endocrinology Comment on above: Alendronate Question Start: 08-02-2021 Telephone encounter Ashley mccray MD Work Phone: [facility] [place] Comment on above: OUTSIDE PT/OT ORDER Start: 08-01-2021 Telephone encounter Ashley mccray MD Work Phone: [facility] [place] Comment on above: Patient Request Start: 07-25-2021 End: 07-25-2021 Patient encounter procedure Sahra Amador MD Work Phone: [facility] Comment on above: Closed nondisplaced fracture of sixth cervical vertebra with delayed healing, unspecified fracture morphology, subsequent encounter (Primary Dx) Start: 07-07-2021 End: 07-07-2021 Orders Only Sahra Amador MD Work Phone: [facility] [facility] Comment on above: Closed traumatic non displaced fracture of sixth cervical vertebra with delayed healing (Primary Dx) Closed nondisplaced fracture of sixth cervical vertebra with delayed healing, unspecified fracture morphology, subsequent encounter (Primary Dx) Closed nondisplaced fracture of seventh cervical vertebra, unspecified fracture morphology, initial encounter (HCC) [S12.601A] Start: 07-04-2021 End: 07-04-2021 Patient encounter procedure Ashley Roberson MD Work Phone: Internal Medicine [place] Comment on above: Elevated troponin (P rimary Dx); Arthritis of right acromioclavicular joint; Arthritis of glenohumeral joint; Essential hypertension; Hypothyroidism, acquired; Dementia without behavioral disturbance, unspecified dementia type (HCC) Start: 07-03-2021 Refill Ashley Ortega Work Phone: Internal Medicine [place] Comment on above: Refill Request; Refi ll Request Start: 06-21-2021 ambulatory Ashley Ortega Work Phone: Internal Medicine [facility] [place] Start: 05-16-2021 End: 05-16-2021 Subsequent hospital visit by physician Karan [facility] Elena (I-Stat/1.5t) Radiology Procedures Date Procedure Procedure Detail Performing Clinician Start: 01-27-[address] Ashley Roberson MD Work Phone: Start: 01-24-[address] Ashley Roberson MD Work Phone: Start: 01-24-2025 End: 01-24-[address] Ashley Roberson MD Work Phone: Start: 01-24-2025 Gram stain microscopy D jono Roberson MD Work Phone: Start: 01-24-2025 Microbial culture, b iris fluid Dr. Ashley Roberson MD Work Phone: Start: 01-24-2025 Urnls dip stick/tabl et reagent auto microscopy Dr. Ashley Roberson MD Work Phone: Start: 01-24-2025 CT of head without contrast Dr. Ashley Roberson MD Work Phone: Start: 01-24-2025 Plain x-ray of wrist Dr Damon Roberson MD Work Phone: Start: 06-17-2024 Dual energy X-ray absorptiometry Dr. Ashley Roberson MD Work Phone: Start: 10-16-2023 Mri spinal canal cer vical w/o contrast matrl Myrna Plata MD Work Phone: Start: 06-27-2023 Ecg routine ecg w/le ast 12 lds i&r only Yvonne Valente LOFT WORKER.ICT ACCOUNT MANAGER Work Phone: Start: 12-08-2022 Urnls dip stick/tabl et rgnt auto w/o microscopy Lorna Mock LOFT WORKER.ICT ACCOUNT MANAGER Work Phone: Start: 01-17-2022 Dual energy X-ray absorptiometry Start: 12-23-2021 Urnls dip stick/tabl et rgnt auto w/o microscopy Ashley Roberson MD Work Phone: Start: 07-11-2021 Antibody screen Comment on above: Order Comment: Speci men Type: BLOOD SPECIMEN Ordering Facility: [facility] Address: [facility] [place] [address] Performed By: #### T SCR #### [facility] CLIA [id number] 1 [place] [address] [place] Start: 07-07-2021 Radex spine cervical 2 or 3 views Indira Villaseñor PA-C Work Phone: Start: 05-16-2021 MRI 3D POST PROCESSING Julio César Malik DO Work Phone: Start: 05-16-2021 Mri brain brain stem w/o contrast material Julio César Malik DO Work Phone: H/O: surgery H/O neck surgery Ashley umaña MD Work Phone: H/O: surgery H/O neck surgery Yvonne WILLETTICT ACCOUNT MANAGER Work Phone: Plan of Treatment Date Care Activity Detail Author Start: 07-31-2027 Urine microalbumin profile [facility] Start: 10-31-2026 [facility] Start: 10-17-2026 [facility] Start: 06-18-2026 [facility] Start: 11-22-2025 DIABETES SCREEN DIABETES SCREEN [facility] Start: 11-22-2025 [facility] Start: 02-26-2025 End: 02-26-2025 Patient encounter procedure 02/26/2025 4:00 PM EST Office Visit Geriatrics [address] [place], [place] [id number] Ashley Roberson MD [address] [place], [place] [phone] 3 Month follow up Geriatrics Comment on above: 3 Month follow up Start: 01-27-2025 Patient discharge [facility] Start: 01-26-2025 Consultation [facility] Start: 01-24-2025 Following clinical pathway protocol [facility] Start: 01-24-2025 Ambulation without limitation [facility] Start: 01-24-2025 Assessment of risk o f venous thromboembolism [facility] Start: 01-24-2025 Catheterization of vein [facility] Start: 01-24-2025 Consultation [facility] Start: 01-24-2025 Insertion of cathete r into peripheral vein [facility] Start: 01-24-2025 Providing care accor ding to standard [facility] Start: 01-24-2025 Referral for physica l therapy [facility] Start: 01-24-2025 Referral to occupati onal therapist [facility] Start: 01-24-2025 [facility] Start: 01-24-2025 Admission procedure [facility] Start: 01-23-2025 End: 01-23-2025 Patient encounter procedure 01/23/2025 9:00 AM EDT Office Visit Neurology [address] [place], [place] [phone] Myrna Plata Jr., MD [address] [place], [place] [phone] Follow up and medication discussion Neurology Comment on above: Follow up and medica tion discussion Start: 12-25-2024 End: 12-25-2024 Nursing evaluation of patient and report 12/25/2024 10:30 AM EDT Nurse Visit [facility] [place] [address] [place] [phone] [place] [address] [place] [phone] [facility] Comment on above: [facility] Start: 12-08-2024 Influenza vaccination Influenza Vacc ine (#1) [facility] Start: 11-11-2024 DIABETES SCREEN DIABETES SCREEN [facility] Start: 10-31-2024 End: 01-30-2025 Ascorbate [Mass/volume] in Serum or Plasma VITAMIN C Lab Routine Vitamin D deficiency Diarrhea, unspecified type Expected: 10/31/2024, Expires: 01/30/2025 [facility] Comment on above: Expected: 10/31/2024 , Expires: 01/30/2025 Start: 10-31-2024 End: 01-30-2025 C reactive protein [Mass/volume] in Serum or Plasma by High sensitivity method HIGH SENSITIVITY C-REACTIVE PROTEIN Lab Routine Vitamin D deficiency Diarrhea, unspecified type Expected: 10/31/2024, Expires: 01/30/2025 [facility] Comment on above: Expected: 10/31/2024 , Expires: 01/30/2025 Start: 10-31-2024 End: 01-30-2025 Cobalamin (Vitamin B12) [Mass/volume] in Serum or Plasma VITAMIN B12 Lab Routine Vitamin D deficiency Diarrhea, unspecified type Expected: 10/31/2024, Expires: 01/30/2025 [facility] Comment on above: Expected: 10/31/2024 , Expires: 01/30/2025 Start: 10-31-2024 End: 01-30-2025 COPPER BLOOD COPPER BLOOD Lab Routine Vitamin D deficiency Diarrhea, unspecified type Expected: 10/31/2024, Expires: 01/30/2025 [facility] Comment on above: Expected: 10/31/2024 , Expires: 01/30/2025 Start: 10-31-2024 End: 01-30-2025 MAGNESIUM RBC MAGNESIUM RBC Lab Routine Vitamin D deficiency Diarrhea, unspecified type Expected: 10/31/2024, Expires: 01/30/2025 [facility] Comment on above: Expected: 10/31/2024 , Expires: 01/30/2025 Start: 10-31-2024 End: 01-30-2025 OMEGACHECK OMEGACHECK Lab Routine Vitamin D deficiency Diarrhea, unspecified type Expected: 10/31/2024, Expires: 01/30/2025 [facility] Comment on above: Expected: 10/31/2024 , Expires: 01/30/2025 Start: 10-31-2024 End: 01-30-2025 Prealbumin [Mass/volume] in Serum or Plasma PREALBUMIN Lab Routine Vitamin D deficiency Diarrhea, unspecified type Expected: 10/31/2024, Expires: 01/30/2025 [facility] Comment on above: Expected: 10/31/2024 , Expires: 01/30/2025 Start: 10-31-2024 End: 01-30-2025 Pyridoxine [Mass/volume] in Serum or Plasma VITAMIN B6/PYRIDOXIN Lab Routine Vitamin D deficiency Diarrhea, unspecified type Expected: 10/31/2024, Expires: 01/30/2025 [facility] Comment on above: Expected: 10/31/2024 , Expires: 01/30/2025 Start: 10-31-2024 End: 01-30-2025 Retinol [Mass/volume] in Serum or Plasma VITAMIN A/RETINOL Lab Routine Vitamin D deficiency Diarrhea, unspecified type Expected: 10/31/2024, Expires: 01/30/2025 [facility] Comment on above: Expected: 10/31/2024 , Expires: 01/30/2025 Start: 10-31-2024 End: 01-30-2025 Riboflavin [Moles/volume] in Serum or Plasma VITAMIN B2/RIBOFLAV Lab Routine Vitamin D deficiency Diarrhea, unspecified type Expected: 10/31/2024, Expires: 01/30/2025 [facility] Comment on above: Expected: 10/31/2024 , Expires: 01/30/2025 Start: 10-31-2024 End: 01-30-2025 TMAO TMAO Lab Routine Vitamin D deficiency Diarrhea, unspecified type Expected: 10/31/2024, Expires: 01/30/2025 [facility] Comment on above: Expected: 10/31/2024 , Expires: 01/30/2025 Start: 10-31-2024 End: 01-30-2025 VITAMIN B1 (THIAMINE), WHOLE BLOOD VITAMIN B1 (THIAMINE), WHOLE BLOOD Lab Routine Vitamin D deficiency Diarrhea, unspecified type Expected: 10/31/2024, Expires: 01/30/2025 [facility] Comment on above: Expected: 10/31/2024 , Expires: 01/30/2025 Start: 10-31-2024 End: 01-30-2025 Zinc [Mass/volume] in Serum or Plasma ZINC BLD Lab Routine Vitamin D deficiency Diarrhea, unspecified type Expected: 10/31/2024, Expires: 01/30/2025 [facility] Comment on above: Expected: 10/31/2024 , Expires: 01/30/2025 Start: 10-22-2024 End: 10-22-2024 Patient encounter procedure 10/22/2024 3:30 PM EDT Office Visit Geriatrics [address] [place] [address] Ashley Roberson MD [address] [facility] [place], [place] [address] 3 mo follow up Geriatrics Comment on above: 3 mo follow up Start: 10-16-2024 End: 10-16-2024 Patient encounter procedure 10/16/2024 3:30 PM EDT Office Visit Geriatrics [address] [facility] [address] Ashley Roberson MD [address] [facility] [place] [address] 3 mo follow up Geriatrics Comment on above: 3 mo follow up Start: 09-30-2024 End: 09-30-2024 Patient encounter procedure 09/30/2024 1:40 PM EDT Office Visit Internal [facility] [place] [address] [place] [address] Kristin Dean, LOFT WORKER.ICT ACCOUNT MANAGER [address] [place] [address] cryo for wart back R hand [facility] [place] Comment on above: cryo for wart back R hand Start: 08-27-2024 End: 08-27-2024 Patient encounter procedure 08/27/2024 11:40 AM EDT Appointment Cat Scan [address] [place], [place] [phone] Fall, sequela [W19.XXXS] Cat Scan Comment on above: Fall, sequela [W19.X XXS] Start: 08-19-2024 End: 08-19-2024 Patient encounter procedure 08/19/2024 9:40 AM EDT Office Visit Internal [facility] [place] [address] [place] [address] Ashley Roberson MD [address] [facility] [place] [address] 6 mo follow up [facility] [place] Comment on above: 6 mo follow up Start: 08-05-2024 End: 11-04-2024 Lipid 1996 panel - Serum or Plasma LIPID PANEL, FASTING Lab Routine Mixed hyperlipidemia Expected: 08/05/2024, Expires: 11/04/2024 [facility] Work Phone: Comment on above: Expected: 08/05/2024 , Expires: 11/04/2024 Start: 08-05-2024 End: 11-04-2024 Thyrotropin [Units/volume] in Serum or Plasma THYROID STIMULATING HORMONE Lab Routine Hypothyroidism, acquired Expected: 08/05/2024, Expires: 11/04/2024 [facility] Comment on above: Expected: 08/05/2024 , Expires: 11/04/2024 Start: 07-28-2024 End: 07-28-2024 Patient encounter procedure 07/28/2024 9:40 AM EDT Office Visit Internal Medicine [place] [address] [facility] [place] [address] Ashley Roberson MD [address] [place], [place] [phone] 3 month follow up [facility] [place] Comment on above: 3 month follow up Start: 07-21-2024 Covid-19 Vaccine ( season) Covid-19 Vaccine () [facility] Start: 07-18-2024 DIABETES SCREEN DIABETES SCREEN [facility] Start: 07-17-2024 End: 07-17-2024 Patient encounter procedure 07/17/2024 11:00 AM EDT Office Visit Geriatrics [address] [place] [address] Ashley Roberson MD [address] [facility] [place] [address] 2 mo follow up Geriatrics Comment on above: 2 mo follow up Start: 07-07-2024 DIABETES SCREEN DIABETES SCREEN [facility] Start: 06-23-2024 End: 06-23-2024 Nursing evaluation of patient and report 06/23/2024 10:45 AM EDT Nurse Visit [facility] Medicine [place] [address] [facility] [place] [address] Nurse, Co [address] [place] [address] [facility] [place] Comment on above: [facility] Start: 06-22-2024 DIABETES SCREEN DIABETES SCREEN [facility] Start: 06-20-2024 End: 06-20-2024 Patient encounter procedure 06/20/2024 11:15 AM EDT Appointment Radiology [address] [place] [phone] Age related osteoporosis, unspecified pathological fracture presence [M81.0] Radiology Comment on above: Age related osteopor osis, unspecified pathological fracture presence [M81.0] Start: 05-30-2024 End: 05-30-2024 Patient encounter procedure 05/30/2024 10:20 AM EST Office Visit Neurology [address] [place] [address] Myrna Plata Jr., MD [address] [phone] f/u Neurology Comment on above: f/u Start: 05-26-2024 End: 05-26-2024 Patient encounter procedure Neurology Comment on above: f/u Dementia, etc....SAMANTHA 12/28/23 WJN- on memantine, Donepezil Start: 04-09-2024 Advance Directive Discussion Advance Directive Discussion [facility] Start: 04-09-2024 Medicare Advantage A nnual Wellness Visit Medicare Advantage Annual Wellness Visit [facility] Start: 02-20-2024 End: 02-20-2024 Patient encounter procedure [facility] [place] Comment on above: Per Dr. Roberson 3 month follow up Start: 02-19-2024 End: 02-19-2024 Patient encounter procedure 02/19/2024 11:40 AM EST Office Visit Internal Medicine [place] [address] [facility] [place] [address] Ashley Roberson MD [address] [place] [address] Medicare Wellness [facility] [place] Comment on above: Medicare Wellness Start: 12-28-2023 End: 12-28-2023 Patient encounter procedure 12/28/2023 10:40 AM EDT Office Visit Neurology [address] [place], [place] [address] Myrna Plata Jr., MD [address] [facility] [place] [phone] WJN (60 min if possible in either [place] or [place]). Neurology Comment on above: WJN (60 min if possi ble in either [place] or [place]). Start: 12-24-2023 End: 12-24-2023 Nursing evaluation of patient and report 12/24/2023 10:45 AM EDT Nurse Visit [facility] [place] [address] [facility] [place] [phone] Nurse, Co [address] [facility] [place] [address] [facility] Comment on above: [facility] Start: 12-09-2023 Covid-19 Vaccine () Covid-19 Vaccine () [facility] Start: 12-09-2023 Covid-19 Vaccine ( season) Covid-19 Vaccine () [facility] Start: 12-09-2023 Influenza vaccination Influenza Vacc ine (#1) [facility] Start: 12-03-2023 End: 12-03-2023 Patient encounter procedure 12/03/2023 9:10 PM EDT Office Visit Neurology [address] [place] [address] Obstructive sleep apnea syndrome [G47.33] Neurology Comment on above: Obstructive sleep ap mert syndrome [G47.33] Start: 11-21-2023 End: 11-21-2023 Patient encounter procedure [facility] [place] Comment on above: Per Dr. Roberson Start: 10-18-2023 End: 01-17-2024 Comprehensive metabolic 2000 panel - Serum or Plasma [facility] Comment on above: Expected: 10/18/2023 , Expires: 01/17/2024 Start: 10-18-2023 End: 01-17-2024 Ferritin [Mass/volume] in Serum or Plasma [facility] Comment on above: Expected: 10/18/2023 , Expires: 01/17/2024 Start: 10-18-2023 End: 01-17-2024 Iron and Iron binding capacity panel - Serum or Plasma [facility] Work Phone: Comment on above: Expected: 10/18/2023 , Expires: 01/17/2024 Start: 10-18-2023 End: 01-17-2024 Magnesium [Mass/volume] in Serum or Plasma [facility] Comment on above: Expected: 10/18/2023 , Expires: 01/17/2024 Start: 10-18-2023 End: 01-17-2024 Thyrotropin [Units/volume] in Serum or Plasma [facility] Comment on above: Expected: 10/18/2023 , Expires: 01/17/2024 Start: 10-18-2023 End: 10-18-2023 Patient encounter procedure 10/18/2023 11:40 AM EDT Office Visit Internal Medicine [place] [address] [place] [address] Ashley Roberson MD [address] [place] [address] 3 month follow up [facility] Medicine [place] Comment on above: 3 month follow up Start: 10-17-2023 End: 10-17-2023 Patient encounter procedure Radiology Comment on above: Ataxia [R27.0] Balance disorder [R2 6.89] Start: 10-16-2023 End: 10-16-2023 Patient encounter procedure 10/16/2023 1:40 PM EDT Appointment Radiology [place] [address] Balance disorder [R26.89]; Cervical myelopathy (HCC) [G95.9]; Ataxia [R27.0]; History of cervical fracture [Z87.81] Radiology Comment on above: Balance disorder [R2 6.89]; Cervical myelopathy (HCC) [G95.9]; Ataxia [R27.0]; History of cervical fracture [Z87.81] Start: 10-08-2023 End: 10-08-2023 Patient encounter procedure 10/08/2023 2:20 PM EDT Office Visit Neurology [address] [place] [address] Myrna Plata Jr., MD [address] [facility] [place] [phone] Balance disorder [R26.89]; Dementia without behavioral disturbance (HCC) [F03.90]; Shaking [R25.1] Neurology Comment on above: Balance disorder [R2 6.89]; Dementia without behavioral disturbance (HCC) [F03.90]; Shaking [R25.1] Start: 10-02-2023 End: 01-01-2024 Lipid 1996 panel - Serum or Plasma LIPID PANEL BASIC Lab Routine Mixed hyperlipidemia Expected: 10/02/2023, Expires: 01/01/2024 [facility] Work Phone: Comment on above: Expected: 10/02/2023 , Expires: 01/01/2024 Start: 09-13-2023 End: 09-13-2023 OT/PT/Speech Visit 09/13/2023 10:45 AM EDT OT/PT/Speech Visit [facility] [address] [place] [address] Burak Wilson PT R26.89 (ICD-10-CM) - Balance disorder [facility] Comment on above: R26.89 (ICD-10-CM) - Balance disorder Start: 09-06-2023 End: 09-06-2023 OT/PT/Speech Visit 09/06/2023 10:45 AM EDT OT/PT/Speech Visit [facility] [address] [place] [address] Burak Wilson PT R26.89 (ICD-10-CM) - Balance disorder [facility] Comment on above: R26.89 (ICD-10-CM) - Balance disorder Start: 08-30-2023 End: 08-30-2023 OT/PT/Speech Visit 08/30/2023 10:45 AM EDT OT/PT/Speech Visit [facility] [address] [place] [address] Burak Wilson, PT R26.89 (ICD-10-CM) - Balance disorder [facility] Comment on above: R26.89 (ICD-10-CM) - Balance disorder Start: 08-23-2023 End: 08-23-2023 OT/PT/Speech Visit 08/23/2023 10:45 AM EDT OT/PT/Speech Visit [facility] [address] [place] [address] Burak Wilson, PT R26.89 (ICD-10-CM) - Balance disorder [facility] Comment on above: R26.89 (ICD-10-CM) - Balance disorder Start: 08-16-2023 End: 08-16-2023 OT/PT/Speech Visit 08/16/2023 1:15 PM EDT OT/PT/Speech Visit [facility] [address] [place] [address] Burak Wilson, PT R26.89 (ICD-10-CM) - Balance disorder [facility] Comment on above: R26.89 (ICD-10-CM) - Balance disorder Start: 08-09-2023 End: 08-09-2023 OT/PT/Speech Visit 08/09/2023 12:30 PM EDT OT/PT/Speech Visit [facility] [address] [place] [address] Burak Wilson, PT R26.89 (ICD-10-CM) - Balance disorder [facility] Comment on above: R26.89 (ICD-10-CM) - Balance disorder Start: 07-28-2023 End: 10-27-2023 Thyroxine (T4) free [Mass/volume] in Serum or Plasma T4 FREE/FREE THYROX Lab Routine Hypothyroidism, acquired Expected: 07/28/2023, Expires: 10/27/2023 [facility] Work Phone: Comment on above: Expected: 07/28/2023 , Expires: 10/27/2023 Start: 06-28-2023 End: 09-27-2023 Bacteria identified in Urine by Culture [facility] Work Phone: Comment on above: Expected: 06/28/2023 , Expires: 09/27/2023 Start: 06-27-2023 End: 09-26-2023 Cobalamin (Vitamin B12) [Mass/volume] in Serum or Plasma [facility] Work Phone: Comment on above: Expected: 06/27/2023 , Expires: 09/26/2023 Start: 06-27-2023 End: 09-26-2023 Thyrotropin [Units/volume] in Serum or Plasma [facility] Work Phone: Comment on above: Expected: 06/27/2023 (Approximate), Expires: 09/26/2023 Start: 06-12-2023 End: 09-11-2023 CBC W Auto Differential panel - Blood CBC + DIFF Lab Routine Essential hypertension Osteopenia of multiple sites Hypothyroidism, acquired Expected: 06/12/2023, Expires: 09/11/2023 [facility] Work Phone: Comment on above: Expected: 06/12/2023 , Expires: 09/11/2023 Start: 06-12-2023 End: 09-11-2023 Comprehensive metabolic 2000 panel - Serum or Plasma COMP METABOLIC PANEL Lab Routine Essential hypertension Osteopenia of multiple sites Hypothyroidism, acquired Expected: 06/12/2023, Expires: 09/11/2023 [facility] Work Phone: Comment on above: Expected: 06/12/2023 , Expires: 09/11/2023 Start: 06-12-2023 End: 09-11-2023 Thyrotropin [Units/volume] in Serum or Plasma TSH BLD Lab Routine Hypothyroidism, acquired Expected: 06/12/2023, Expires: 09/11/2023 [facility] Work Phone: Comment on above: Expected: 06/12/2023 , Expires: 09/11/2023 Start: 06-08-2023 Covid-19 Vaccine () Covid-19 Vaccine () [facility] Start: 04-09-2023 Advance Directive Discussion Advance Directive Discussion [facility] Start: 03-12-2023 End: 06-11-2023 Calcium.ionized [Moles/volume] in Blood CALCIUM IONIZED BLOOD Lab Routine History of hypercalcemia Expected: 03/12/2023 (Approximate), Expires: 06/11/2023 [facility] Work Phone: Comment on above: Expected: 03/12/2023 (Approximate), Expires: 06/11/2023 Start: 01-26-2023 Covid-19 Vaccine () Covid-19 Vaccine () [facility] Start: 12-08-2022 Influenza vaccination [facility] Start: 11-22-2022 End: 01-22-2023 MAGNESIUM RBC [facility] Work Phone: Comment on above: Expected: 11/22/2022 , Expires: 01/22/2023 Start: 08-16-2022 End: 10-16-2022 Lipid 1996 panel - Serum or Plasma LIPID PANEL BASIC Lab Routine Hyperlipidemia, unspecified hyperlipidemia type Expected: 08/16/2022, Expires: 10/16/2022 [facility] Work Phone: Comment on above: Expected: 08/16/2022 , Expires: 10/16/2022 Start: 08-16-2022 End: 10-16-2022 Thyrotropin [Units/volume] in Serum or Plasma TSH BLD Lab Routine Hypothyroidism, acquired Expected: 08/16/2022, Expires: 10/16/2022 [facility] Work Phone: Comment on above: Expected: 08/16/2022 , Expires: 10/16/2022 Start: 08-16-2022 End: 10-16-2022 Urinalysis complete panel - Urine URINALYSIS, WITH MICROSCOPIC Lab Routine Urinary tract infection without hematuria, site unspecified Expected: 08/16/2022, Expires: 10/16/2022 [facility] Work Phone: Comment on above: Expected: 08/16/2022 , Expires: 10/16/2022 Start: 05-23-2022 COVID-19 VACCINE (7 - Moderna series) COVID-19 VACCINE (7 - Moderna series) [facility] Start: 04-09-2022 ADVANCE DIRECTIVE DISCUSSION ADVANCE DIRECTIVE DISCUSSION [facility] Start: 02-15-2022 End: 04-17-2022 Cobalamin (Vitamin B12) [Mass/volume] in Serum or Plasma VITAMIN B12 BLOOD Lab Routine B12 deficiency Expected: 02/15/2022 (Approximate), Expires: 04/17/2022 [facility] Work Phone: Comment on above: Expected: 02/15/2022 (Approximate), Expires: 04/17/2022 Start: 01-12-2022 Screening for osteoporosis Bone Density Screening [facility] Start: 12-08-2021 Influenza vaccination INFLUENZA (#1) [facility] Start: 11-17-2021 End: 01-17-2022 FM SQ NUTREVAL PANEL BLOOD AND URINE FM SQ NUTREVAL PANEL BLOOD AND URINE Lab Routine Memory deficits Deficiency of multiple nutrient elements B12 deficiency Essential fatty acid (EFA) deficiency Expected: 11/17/2021, Expires: 01/17/2022 [facility] Work Phone: Comment on above: Expected: 11/17/2021 , Expires: 01/17/2022 Start: 11-11-2021 End: 01-11-2022 Cobalamin (Vitamin B12) [Mass/volume] in Serum or Plasma [facility] Work Phone: Comment on above: Expected: 11/11/2021 , Expires: 01/11/2022 Start: 11-11-2021 End: 01-11-2022 Comprehensive metabolic 2000 panel - Serum or Plasma [facility] Work Phone: Comment on above: Expected: 11/11/2021 , Expires: 01/11/2022 Start: 10-18-2021 End: 12-18-2021 SCHEDULE LAB TESTING SCHEDULE LAB TESTING Lab Routine Expected: 10/18/2021, Expires: 12/18/2021 [facility] Work Phone: Comment on above: Expected: 10/18/2021 , Expires: 12/18/2021 Start: 10-18-2021 End: 12-18-2021 Thyrotropin [Units/volume] in Serum or Plasma TSH BLD Lab Routine Hypothyroidism, acquired Expected: 10/18/2021, Expires: 12/18/2021 [facility] Work Phone: Comment on above: Expected: 10/18/2021 , Expires: 12/18/2021 Start: 10-12-2021 COVID-19 VACCINE (5 - Booster for Moderna series) COVID-19 VACCINE (5 - Booster for Moderna series) [facility] Start: 07-04-2021 End: 09-03-2021 TROPONIN T [facility] Work Phone: Comment on above: Expected: 07/04/2021 , Expires: 09/03/2021 Start: 06-04-2021 COVID-19 VACCINE (4 - Booster for Moderna series) COVID-19 VACCINE (4 - Booster for Moderna series) [facility] Start: 04-09-2021 ADVANCE DIRECTIVE DISCUSSION ADVANCE DIRECTIVE DISCUSSION [facility] Start: 2000 RSV Vaccine (1 - 1-d ose 60+ series) RSV Vaccine (1 - 1-dose 60+ series) [facility] Bacteria identified in Urine by Culture URINE CULTURE Microbiology Routine Urinary frequency 12/08/2022 4:01 PM EDT [facility] Work Phone: End: 06-12-2025 BD DXA TRABECULAR BONE SCORE (TBS) BD DXA TRABECULAR BONE SCORE (TBS) Radiology Routine Age related osteoporosis, unspecified pathological fracture presence 1 Occurrences starting 05/13/2024 until 06/12/2025 [facility] Comment on above: 1 Occurrences starti ng 05/13/2024 until 06/12/2025 Clostridioides diffi cile toxin genes [Presence] in Stool by [place] with probe detection CLOSTRIDIUM DIFFICILE TOXIN BY PCR Lab Routine Diarrhea, unspecified type Incontinence of feces, unspecified fecal incontinence type Ordered: 04/25/2024 [facility] Comment on above: Ordered: 04/25/2024 End: 09-18-2025 CT Head WO contrast CT BRAIN WO IVCON Radiology Routine Fall, sequela 1 Occurrences starting 08/19/2024 until 09/18/2025 [facility] Work Phone: Comment on above: 1 Occurrences starti ng 08/19/2024 until 09/18/2025 End: 06-12-2025 DXA Skeletal system.axial Views for bone density DXA-AXIAL SKELETON Radiology Routine Age related osteoporosis, unspecified pathological fracture presence 1 Occurrences starting 05/13/2024 until 06/12/2025 [facility] Work Phone: Comment on above: 1 Occurrences starti ng 05/13/2024 until 06/12/2025 ECG COMPLETE ECG COMPLETE ECG 06/27/2023 10:56 AM EDT [facility] FECAL LACTOFERRIN/LEUKOCYTES FECAL LACTOFERRIN/LEUKOCYTES Lab Routine Diarrhea, unspecified type Incontinence of feces, unspecified fecal incontinence type Ordered: 04/25/2024 [facility] Work Phone: Comment on above: Ordered: 04/25/2024 FM GI EFFECTS, 3 STO OL SPECIMENS FM GI EFFECTS, 3 STOOL SPECIMENS Lab Routine Vitamin D deficiency Diarrhea, unspecified type Ordered: 10/31/2024 [facility] Work Phone: Comment on above: Ordered: 10/31/2024 End: 10-09-2024 MR Brain WO contrast MRI BRAIN WO IVCON Radiology Routine Ataxia Cerebral amyloid angiopathy (CODE) 1 Occurrences starting 09/10/2023 until 10/09/2024 [facility] Work Phone: Comment on above: 1 Occurrences starti ng 09/10/2023 until 10/09/2024 MR Brain WO contrast MRI BRAIN W O IVCON Radiology Routine Ataxia Cerebral amyloid angiopathy (CODE) 10/16/2023 2:23 PM EDT [facility] Work Phone: End: 10-09-2024 MR Cervical spine WO contrast MRI CERVICAL SPINE WO IVCON Radiology Routine Balance disorder Cervical myelopathy (HCC) Ataxia History of cervical fracture 1 Occurrences starting 09/10/2023 until 10/09/2024 [facility] Comment on above: 1 Occurrences starti ng 09/10/2023 until 10/09/2024 End: 11-20-2024 Polysomnogram POLYSOMNOGRAM (PSG) Procedures Routine Obstructive sleep apnea syndrome 1 Occurrences starting 11/21/2023 until 11/20/2024 [facility] Work Phone: Comment on above: 1 Occurrences starti ng 11/21/2023 until 11/20/2024 Radex spine cervical 2 or 3 views XR CERV GENERAL 2V AP/LAT Radiology Routine Closed nondisplaced fracture of sixth cervical vertebra with delayed healing, unspecified fracture morphology, subsequent encounter 09/12/2021 10:38 AM EDT [facility] Work Phone: UA DIP, URINE (POC) UA DIP, URIN E (POC) Lab Routine Memory change Ordered: 06/27/2023 [facility] Work Phone: Comment on above: Ordered: 06/27/2023 [facility] [place] [facility] Immunizations Immunization Date Immunization Notes Care Provider Fa [facility] 01-13-2025 influenza, high dose seasonal, preservative-free Dr. Ashley Roberson MD Work Phone: [facility] 01-13-2025 Pfizer Covid-19 (Comirnaty) Dr. Ashley Roberson MD Work Phone: [facility] 01-21-2024 Covid (Spikevax) Dr. Ashley Roberson MD Work Phone: [facility] 01-21-2024 influenza, high dose seasonal, preservative-free Dr. Ashley Roberson MD Work Phone: [facility] 01-21-2024 influenza virus vacc ine, unspecified formulation Ashley Roberson MD Work Phone: [facility] 03-22-2023 RSV Adult Recombinan t (Arexvy) Dr. Ashley Roberson MD Work Phone: [facility] 02-07-2023 Covid (Spikevax) Dr. Ashley Roberson MD Work Phone: [facility] 02-07-2023 influenza, injectabl e, quadrivalent, preservative free Dr. Ashley Roberson MD Work Phone: [facility] 02-07-2023 influenza virus vacc ine, unspecified formulation Keenan King ANNEMARIE Work Phone: [facility] 12-01-2022 Covid Moderna Bivale nt Booster Dr. Ashley Roberson MD Work Phone: [facility] 01-20-2022 Covid Moderna Bivale nt Booster Dr. Ashley Roberson MD Work Phone: [facility] 01-20-2022 influenza, injectabl e, quadrivalent, preservative free Dr. Ashley Roberson MD Work Phone: [facility] 01-20-2022 influenza virus vacc ine, unspecified formulation Mri (I-Stat/1.5t) [facility] 08-17-2021 Covid (Moderna) Dr. Ashley emerson MD Work Phone: [facility] 02-01-2021 Covid (Moderna) Dr. Ashley emerson MD Work Phone: [facility] 01-07-2021 influenza, high-dose , quadrivalent vaccine (FLUZONE HIGH DOSE QUADRIVALENT) Ashley Roberson MD Work Phone: [facility] Work Phone: 06-09-2020 COVID-19 vaccine, fu ll dose (MODERNA) Ashley Roberson MD Work Phone: [facility] 05-17-2020 zoster vaccine recombinant Ashley Roberson MD Work Phone: [facility] 04-29-2020 COVID-19 vaccine, fu ll dose (MODERNA) Ashley Roberson MD Work Phone: [facility] 01-13-2020 influenza (aIIV4) vaccine, age 65+ yr, quadrivalent, PF (FLUAD QUADRIVALENT) Ashley Roberson MD Work Phone: [facility] Work Phone: 01-13-2020 influenza, high dose seasonal, preservative-free Ashley Roberson MD Work Phone: [facility] 01-13-2020 influenza, injectabl e, quadrivalent, preservative free Dr. Ashley Roberson MD Work Phone: [facility] 01-13-2020 zoster vaccine recombinant Ashley Roberson MD Work Phone: [facility] 01-07-2019 Influenza virus vaccine [facility] 01-07-2019 influenza, seasonal, injectable, preservative free Ashley Roberson MD Work Phone: [facility] Work Phone: 01-07-2019 Seasonal trivalent influenza vaccine, adjuvanted, preservative free Ashley Roberson MD Work Phone: [facility] 01-11-2018 influenza, high dose seasonal, preservative-free Ashley Roberson MD Work Phone: [facility] 07-30-2017 tetanus toxoid, redu guevara diphtheria toxoid, and acellular pertussis vaccine, adsorbed Ashley Roberson MD Work Phone: [facility] Work Phone: 02-09-2017 influenza, high dose kristina, preservative-free Ashley Roberson MD Work Phone: [facility] 02-03-2016 influenza, high dose seasonal, preservative-free Ashley Roberson MD Work Phone: [facility] 01-19-2015 influenza, high dose seasonal, preservative-free Ashley Roberson MD Work Phone: [facility] 01-19-2015 pneumococcal conjuga te vaccine, 13 valent Ashley Roberson MD Work Phone: [facility] 02-02-2014 influenza, high dose seasonal, preservative-free Dr. Ashley Roberson MD Work Phone: [facility] 01-26-2014 influenza, high dose seasonal, preservative-free Ashley Roberson MD Work Phone: [facility] Work Phone: 01-17-2012 influenza virus vacc ine, unspecified formulation Ashley Roberson MD Work Phone: [facility] 12-06-2011 zoster vaccine, live Ashley Roberson MD Work Phone: [facility] 03-24-2010 influenza virus vacc ine, unspecified formulation Ashley Roberson MD Work Phone: [facility] 02-24-2009 influenza virus vacc ine, unspecified formulation Ashley Roberson MD Work Phone: [facility] Work Phone: 02-24-2008 influenza virus vacc ine, unspecified formulation Ashley Roberson MD Work Phone: [facility] Work Phone: 02-27-2007 influenza virus vacc ine, whole virus Ashley Roberson MD Work Phone: [facility] 02-27-2007 influenza, injectabl e, quadrivalent, preservative free Dr. Ashley Roberson MD Work Phone: [facility] 07-10-2006 pneumococcal polysaccharide vaccine, 23 valent Ashley Roberson MD Work Phone: [facility] Work Phone: Payers Date Payer Category Payer Self-pay [id number] 2024 Medicare [id number] 2021 Medicare AETNA MEDICARE A ETNA MEDICARE O [id number] 2021-Present [phone] [address] [place] [address] [facility] [id number] 2021 Medicare [id number] 2021 Medicare (Managed Care) [id number] 2021 Private Health Insurance [id number] Medicare [employer] MEDICARE PPO [id number] Medicare MEDICARE PART A B [id number] Private Health Insurance [facility] [id number] Private Health Insurance [facility] [id number] Unknown [id number] Unknown [id number] Unknown [id number] Unknown [id number] Unknown [id number] Unknown [id number] Social History Date Type Detail Facility Start: 11-14-2010 End: 01-24-2025 Tobacco smoking status NHIS Never smoked tobacco [facility] Work Phone: Start: 07-04-2021 End: 10-22-2024 Alcohol intake Current drinker of alcohol (finding) [facility] Start: 01-19-2021 End: 08-07-2022 History SDOH Alcohol Frequency 2 [facility] Start: 01-19-2021 End: 08-07-2022 History SDOH Alcohol Std Drinks 1 [facility] Start: 11-14-2010 History SDOH Alcohol Comment Occasionally wine [facility] Start: 01-19-2021 End: 08-07-2022 History SDOH Social Connections Phone 5 [facility] Start: 01-19-2021 End: 08-07-2022 History SDOH Social Connections Shinto 3 [facility] Start: 08-03-2019 Education 12 [facility] Start: 1940 Sex Assigned At Not on file [facility] Start: 04-06-2021 End: 12-23-2021 Exposure to SARS-CoV-2 (event) Not sure [facility] Work Phone: Start: 11-01-2021 End: 11-11-2021 Exposure to SARS-CoV-2 (event) Unable to assess [facility] Start: 11-14-2010 End: 12-23-2021 Tobacco use and exposure Smokeless tobacco non-user [facility] Work Phone: Start: 06-20-2021 Tobacco smoking status NHIS Unknown if ever smoked [facility] Work Phone: Start: 03-05-2019 Occasional [facility] Start: 03-05-2019 Spouse/ Significant Other [facility] Start: 1940 Sex Assigned At Female [facility] Start: 08-07-2022 End: 08-16-2022 History of Social function [facility] Work Phone: Start: 08-07-2022 End: 08-16-2022 Social connection and isolation panel [facility] Work Phone: Do you belong to any clubs or organizations such as presybeterian groups, unions, fraternal or athletic groups, or school groups? No [facility] Work Phone: Are you now , , , , never or living with a partner? [facility] Work Phone: How often to you hav e a drink containing alcohol? Monthly or less [facility] Work Phone: How many standard dr inks containing alcohol do you have on a typical day? 1 or 2 [facility] Work Phone: How often do you hav e 6 or more drinks on 1 occasion? Never [facility] Work Phone: Start: 03-10-2012 How hard is it for you to pay for the very basics like food, housing, medical care, and heating Not hard at all [facility] Work Phone: Do you feel stress - tense, restless, nervous, or anxious, or unable to sleep at night because your mind is troubled all the time - these days [OSQ] Not at all [facility] Work Phone: (I/We) worried wheakbar er (my/our) food would run out before (I/we) got money to buy more. Never true [facility] Work Phone: Do you belong to any clubs or organizations such as presybeterian groups, unions, fraternal or athletic groups, or school groups? Yes [facility] Start: 06-26-2024 Sex Female (finding) [facility] Medical Equipment Procedure Code Equipment Code Equipment Origin al Text Equipment Identifier Dates [place] Cont 3.5x80mm [id number] Start: 07-12-2021 Screw Bn 3.5mm 1 2mm [place] Spnl - [id number] Start: 07-12-2021 Polyaxial Screw Size 3.5mm X 14mm [id number] Start: 07-12-[address] Spnl Oc t [place] Ns Lf - [id number] Start: 07-12-2021 [place] Oct Polyax ial Screw Medial Lateral 4mm X 24mm [id number] Start: 07-12-2021 Goals Date Patient Goal Desired Activity /State Functional Status Date Assessment Result Facility 01-27-2025 Functional status Chair [facility] Work Phone: 01-26-2025 Functional status Tolerates Activity Fair [facility] Work Phone: 07-18-2021 Do you have difficul ty dressing or bathing No 07/18/2021 12:29 PM EDLiliana Kelly, TYRON No [facility] 07-18-2021 Because of a physica l, mental, or emotional condition, do you have difficulty doing errands alone such as visiting a physician's office or shopping No 07/18/2021 12:29 PM EDT Liliana Maher, TYRON No [facility] 07-18-2021 Are you deaf, or do you have serious difficulty hearing No 07/18/2021 12:10 PM EDT Liliana Maher RN No [facility] 07-18-2021 Are you blind, or do you have serious difficulty seeing, even when wearing glasses No 07/18/2021 12:10 PM EDT Liliana Maher RN No [facility] 07-18-2021 Do you have serious difficulty walking or climbing stairs No 07/18/2021 12:10 PM EDT Liliana Maher RN No [facility] Mental Status Date Assessment Result Facility 01-27-2025 Cognitive function [facility] Work Phone: 01-27-2025 Cognitive function Voice/Name [facility] Work Phone: 07-18-2021 Because of a physica l, mental, or emotional condition, do you have serious difficulty concentrating, remembering, or making decisions No 07/18/2021 12:10 PM EDT Liliana Maher RN No [facility] Clinical Notes 08-18-2019 to 02-05-2025 Note Date & Type Note Facility 02-05-2025 Note HNO ID: [id number] Author: LYN MCKEON MD Service: ? Author Type: Physician Type: Progress Notes Filed: 02/05/2025 16:56 Note Text: DISTANCE HEALTH VISIT This Team Access Model visit is a virtual encounter. It required patient-provider interaction for the medical decision making as documented below. Telemedicine Visit - Distance Health Virtual Visit Note Patient seen on [employer] Video Visit platform. Location of patient: [place] MD I have communicated my name and active licensure. The patient's identity and physical location were verified at the time of this visit. Either the patient or their legal sales representative sales manager has been informed of the risks and benefits of -- and alternatives to -- treatment through a remote evaluation and consents to proceed with the evaluation remotely. FUNCTIONAL MEDICINE FOLLOW-UP ASSESSMENT Patient: Fiona Gruber There is no height or weight on file to calculate BMI. Resting Metabolic Rate: 988 Waist measurement: No waist measurement recorded. ALLERGIES Allergen Reactions Amoxicillin Hives GI upset Oxycodone GI Upset Penicillins Hives Seasonal Allergies Itching Fall Current Outpatient Medications on File Prior to Visit Medication Sig sertraline (ZOLOFT) 50 mg tablet Take 1 tablet by mouth once daily. rosuvastatin (CRESTOR) 10 mg tablet Take 1 tablet by mouth daily at bedtime. cholestyramine (QUESTRAN) 4 gram packet Take 1 packet by mouth three times a day with meals. levothyroxine (SYNTHROID) 25 mcg tablet Take 1 tablet by mouth once daily. donepezil (ARICEPT) 10 mg tablet Take 1 tablet by mouth daily after breakfast. Current Facility-Administered Medications on File Prior to Visit Medication denosumab 60 mg injection (PROLIA) PAST MEDICAL HISTORY Diagnosis Date Age related osteoporosis DEMETRA (acute kidney injury) 08/18/2019 Arthritis of both knees 03/08/2015 Diarrhea Diverticulosis of colon (without mention of hemorrhage) Essential tremor 03/08/2016 Hypercalcemia 03/13/2018 Hyperparathyroidism, unspecified (HCC) Hypothyroidism, acquired 05/22/2020 Irritable bowel syndrome Osteopenia Pill dysphagia Sciatica Secondary hyperparathyroidism (HCC) 08/02/2010 Vitamin B 12 deficiency 08/18/2019 Vitamin D deficiency 01/19/2014 Family History Problem Relation Age of Onset Arthritis Mother other (Dementia) Mother Heart Father [place], bi-pass surgery X-2/diabetes Headache Sister Thyroid Sister Calcium Disorder No Family History Subjective ------- Patient presents with: Established Patient 02/05/2025 Lyn Mckeon MD Last Visit on Provider: Lyn Mckeon MD Functional Medicine History Fiona Gruber is a 84-year-old female, accompanied by her daughter, presenting for follow-up on stool test results and ongoing issues with loose stools. Fiona has been experiencing loose stools with inconsistent bowel movements, occurring once to twice weekly since October. She is currently taking cholestyramine to manage this symptom. Her daughter reports that Fiona has a variable appetite, sometimes skipping dinner, but generally consumes a variety of foods, including homegrown vegetables and homemade rye bread. Review of Systems Gastrointestinal: (+) diarrhea, (+) fecal incontinence, (+) decreased appetite Objective Vital Signs There were no vitals taken for this visit. Physical Exam Physical Exam Lab / Testing Results Labs: - Comprehensive stool analysis ([place]): - Digestion/Maldigestion: - Increased fecal protein consistent with maldigestion - Pancreatic function preserved - Microbiome: - Overall bacterial abundance adequate - Reduced microbial diversity with dysbiosis - Fusobacterium elevated - Akkermansia present - Proteobacteria detected - Eukaryotes detected - Reduced representation of multiple commensal taxa on PCR - Metabolites: - Short-chain fatty acids adequate - Beta-glucuronidase low - Pathogens: - Microscopy for ova/parasites: none detected - DNA probes for 6 common enteric pathogens: negative - Culture: no pathogenic bacteria isolated DIAGNOSIS/ASSESSMENT: R19.7 Diarrhea, unspecified type (primary encounter diagnosis) K59.89 Intestinal dysbiosis F03.90 Dementia without behavioral disturbance (HCC) 1. Diarrhea, unspecified type (R19.7): Persistent, intermittent loose stools occurring once or twice weekly. Continued cholestyramine as previously prescribed for partial symptomatic relief. Reinforced importance of adequate dietary fiber intake to help improve stool consistency. - Continue cholestyramine - Reinforce dietary fiber intake 2. Intestinal dysbiosis (K59.89): Stool analysis demonstrated imbalance of bacterial species with elevated Fusobacterium and limited diversity; no pathogenic organism (more content not included)... [facility] 02-02-2025 Note HNO ID: [id number] Author: ASHLEY ROBERSON MD Service: ? Author Type: Physician Type: Progress Notes Filed: 02/02/2025 13:17 Note Text: Reason for Visit Follow up HPI Fiona Gruber is a 84-year-old female with a history of pseudogout, dementia, and chronic diarrhea, presenting for follow-up after recent hospitalization for right wrist pain and acute pseudogouty arthritis. She is accompanied by her and daughter, who are providing history on her behalf. Fiona was admitted from 01/24 to 01/26 for right wrist pain, initially suspected to be septic arthritis. However, after a right wrist arthrocentesis revealed minimal cloudiness of the synovial fluid, septic arthritis was ruled out, and she was diagnosed with acute pseudogouty arthritis of the right wrist. She was treated with Prednisone for 5 days, which reportedly improved her symptoms. She still experiences some pain when pressure is applied to her hand, but denies current pain. Since her hospitalization, Fiona has been experiencing increased mood swings and crying spells. Her Lexapro was discontinued during her hospital stay. Prior to discontinuation, her had been administering it every other day, which he believes contributed to mood swings. When given daily, it reportedly caused lethargy. Fiona expresses a desire to go home, which her family believes is contributing to her emotional distress. Fiona has also been experiencing headaches over the past few days. She denies any recent falls. Fiona has a history of chronic diarrhea and has been prescribed cholestyramine, but she is non-compliant with the medication. Her daughter reports that even when taken regularly, the medication did not consistently prevent episodes of diarrhea. Recently, her stools have been solid, and she denies any current issues with diarrhea. She also denies constipation. Her daughter notes that Fiona does not go to the bathroom regularly and may go a couple of days without a bowel movement. She has an upcoming appointment with a functional medicine specialist to further investigate the cause of her diarrhea. Fiona is currently taking donepezil, but is non-compliant with memantine due to difficulty swallowing pills. She is also taking thyroid medication. Fiona reportedly sleeps 10-11 hours per night and takes naps during the day. She is able to eat independently but requires assistance with other activities of daily living, such as dressing, washing, and toileting. Her family notes that her ability to perform these tasks varies from day to day. She has been experiencing increased confusion and difficulty remembering family members, which her family believes is a progression of her dementia. SOCIAL HISTORY[1] Past medical history, appointments, medications, allergies reviewed. Pertinent Lab/Diagnostic Studies are reviewed and discussed today Current Outpatient Medications: rosuvastatin (CRESTOR) 10 mg tablet cholestyramine (QUESTRAN) 4 gram packet donepezil (ARICEPT) 10 mg tablet colestipol (COLESTID) 1 gram tablet predniSONE (DELTASONE) 20 mg tablet sertraline (ZOLOFT) 20 mg/mL concentrated solution levothyroxine (SYNTHROID) 25 mcg tablet Current Facility-Administered Medications: denosumab 60 mg injection (PROLIA) Health Maintenance Bone Density Screening Advance Directive Discussion Medicare Advantage Annual Wellness Visit@ Review Of Systems Constitutional: (+) excessive sleepiness Head: (+) headaches Gastrointestinal: (+) constipation, (-) diarrhea Musculoskeletal: (-) right wrist pain, (-) falls Neurological: (+) confusion, (+) memory impairment Psychiatric: (+) crying spells, (+) mood swings Physical Exam BP 110/73 Pulse 108 Resp 16 Wt 54.7 kg (120 lb 9.6 oz) BMI 20.70 kg/m? GENERAL: NAD, alert and oriented. SKIN: Unremarkable, no rash or skin lesions. HEAD: Normocephalic. EYES: PERRLA, EOMI, conjunctiva clear. NECK: Supple, no lymphadenopathy, normal thyroid, no carotid bruits. LUNGS: Clear to auscultation bilaterally, no wheezes/rhonchi/rales. HEART: Regular rate and rhythm, no murmurs. No ectopy. EXTREMITIES: Normal, no deformities, no skin discoloration, no edema. NEURO: Awake, alert and oriented x3, cranial nerves II-XII grossly intact, normal gait, no involuntary motions. 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 - Left knee: Pain attributed to a Dleong?s cyst. Assessment and Plan 1. 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, unspecified dementia severity (HCC) (G30.1) 2. Crying associated with mood (R45.89) Progressive cognitive decline with increased mood lability and frequent crying episodes; Lexapro was discontinued during recent hospitalization due to limited efficacy and lethargy when administered daily. (more content not included)... [facility] 01-27-2025 Consult note [facility] 01-27-2025 Consult note Note Date/Time January 27, 2025 2:08pm [facility] Medical Records Department [address] [place] [address] Counseling Note - Pharmacy 01/27/251134 MR#: [id number] Acct: [id number] Name: FIONA GRUBER Rep #:[id number] : 1940 84 From: Jennifer Alves PCP: Dr. Ashley Roberson MD Status:ADM I N Y Location: [place] [address] Pharmacy [facility] Counseling Pharmacy Service has performed discharge medication reconciliation and counseling for this patient. 1. PREDNISONE 40MG PO DAILY X 5 DAYS The patient's discharge medication list was reviewed for discrepancies and discrepancies were resolved. The patient was counseled on the following discharge medications and changes in medications for homegoing were reviewed. The Reason for Use, instructions for use, and potential side effects were reviewed for all new medications. The patient's questions regarding all of their medications were answered. The patient was able to verbally demonstrate an understanding of their dischargemedications. Medications at Discharge Home Medications levothyroxine 25 mcg tablet 25 mcg PO DAILY #1 TAB 05/18/20 alendronate 70 mg/75 mL oral solution 70 mg PO QWEEK 03/14/21 escitalopram oxalate 10 mg tablet 10 mg PO DAILY DEPRESSION 01/25/25 rosuvastatin 10 mg tablet 10 mg PO QHS CHOLESTEROL 01/25/25 prednisone 20 mg tablet 40 mg (2 x 20 mg) PO DAILY #10 tabs 01/27/25 01/27/25 1135 <Electronically signed by Jennifer Alves> Date _ Jennifer Saldana Signature (if applicable): Date CC: ~ Signed [facility] Work Phone: [phone]) 761-477510-21-2025 Discharge summary Author Jonah Mckoy [facility] Note Date/Time January 27, 2025 1 1:25am [facility] Medical Records Department [address] [place] [address] Discharge Summary 01/27/25 1018 MR#: [id number] Acct: [id number] Name: FIONA GRUBER Rep #:[id number] : 1940 84 From: Jonah Mckoy DO PCP: Dr. Ashley Roberson MD Status:ADM I N Location: [facility] AP355-5 Providers Date of Admission: 01/24/25 Primary Care Physician: Dr. Ashley Roberson MD Consultations 01/24/25 17:03 Consult: Orthopedics Routine Consulting Provider: Lico Chance Reason for Consult: Right wrist septic arthritis EMERGENT Consult: No Notified: Yes Date Notified: 01/24/25 Time Notified: 15:28 Method of Notification: Verbal 01/26/25 08:06 Consult: Infectious Disease Routine Consulting Provider: Oscar Saravia Reason for Consult: right wrist septic arthritis. 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 * patient will continue on Rocephin and vancomycin * ortho performed right wrist arthrocentesis. minimal cloudiness of the return of fluid. Compression stockinette was applied to the right hand and wrist. Ortho to reevaluate today for formal I+D. * Pathology showed crystals with calcium pyrophosphate and a few crystals of uric acid. WBCs 43 * Cultures negative for 48h. * DC with prednisone burst. 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 Chronic medical conditions: * hypothyroidism-patient is on Synthroid * dementia-complicates care, management, recovery, and prognosis VTE prophylaxis: SQ heparin. DW patient's at bedside. Medications at Discharge Home Medications levothyroxine 25 mcg tablet 25 mcg PO DAILY #1 TAB 05/18/20 alendronate 70 mg/75 mL oral solution 70 mg PO QWEEK 03/14/21 escitalopram oxalate 10 mg tablet 10 mg PO DAILY DEPRESSION 01/25/25 rosuvastatin 10 mg tablet 10 mg PO QHS CHOLESTEROL 01/25/25 prednisone 20 mg tablet 40 mg (2 x 20 mg) PO DAILY #10 tabs 01/27/25 Hospital Course Summary of Care Provided Hospital Course: Pt presents w right wrist pain and swelling. Started on abx give concern for septic arthritis. Arthrocentesis performed and cultures have been negative, however noted calcium pyrophosphate and uric acid crystals (see pathology). So, abx to be discontinued and she will receive a prednisone burst. Weight bearing as tolerated. Weight / BMI Weight Weight: 55.973 kg Body Mass Index (BMI) 20.5 ABG / Lab / Microbiology Data 01/27/25 05:10 01/27/25 05:10 Laboratory: Laboratory Results - last 24 hr 01/24/25 12:50: Fluid Crystals CALCIUM PYROPHOS, Synovial Path Comment Reviewed 01/27/25 05:10: WBC 8.0, RBC 3.98 L, Hgb 11.1 L, Hct 33.8 L, MCV 84.9, MCH 27.9,MCHC 32.8, RDW Std Deviation 45.2 H, RDW Coeff of Vidal 14.6, Plt Count 206, MPV 11.2, Immature Gran % (Auto) 0.400, Neut % (Auto) 62.3, Lymph % (Auto) 23.1, [place] % (Auto) 13.1 H, Eos % (Auto) 0.7, Baso % (Auto) 0.4, Absolute Neuts (auto) 5.0, Absolute Lymphs (auto) 1.85, Nucleated RBC % 0, Sodium 141, Potassium 3.4, Chloride 108, Carbon Dioxide 22.9, Anion Gap 10, BUN 13, Creatinine 0.57 L, Estim Creat Clear Calc 46.26 L, Est GFR (MDRD) Non-Af 90, BUN/Creatinine Ratio 23.0 H, Glucose 114 H, Calcium 8.7 Microbiology: Microbiology 01/24/25 12:50 Fluid - Synovial (joint) Gram Stain - Final 01/24/25 12:50 Fluid - Synovial (joint) Body Fluid Culture - Preliminary No growth-Final to follow 01/24/25 12:50 Fluid - Synovial (joint) Anaerobic Culture - Preliminary No growth in 48 hours. 01/24/25 15:35 Wound - Wrist Skin and Soft Tissue MRSA/MSSA (PCR - Final D/C Instructions DC O2, CPAP, BIPAP Needs Home O2 Discharge instructions: No Meaningful Use Info Meaningful Use Meaningful Use Diagnoses (Choose all that apply): None applicable Discharge Plan Admission Admit Date/Time: 01/24/25 15:24 Primary Reason for Your Visit: psuedogout of right wrist. Attending Provider: Jonah Mckoy Primary Care Provider: Ashley Roberson Consulting Providers: Lico Chance; Brice Avila; Oscar Saravia Instructions Additional Instructions / Restrictions: 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 It is not from an infection. To help this, you will be on prednisone. Put weight on wrist as you are able to tolerate. Discharge Orders/Prescriptions Prescriptions: New prednisone 20 mg tablet 40 mg PO DAILY Qty: 10 0RF Continued alendronate 70 mg/75 mL Solution 70 mg PO QWEEK escitalopram oxalate 10 mg tablet 10 mg PO DAILY rosuvastatin 10 mg tablet 10 mg PO QHS levothyroxine 25 mcg tablet 25 mcg PO DAILY Qty: 1 0RF Referrals / Follow Up: Ashley Roberson MD [Primary Care Provider, Internal Medicine] - Within 2 Weeks Disposition Disposition (needs filled in before D/C Order can be placed): Home, Self Care Charges/Coding Visit Charges Inpatient E&M: 71043 Disch Hosp 01/27/25 1025 <Electronically signed by Jonah Mckoy DO> Cosigner Signature (if applicable): CC: Dr. Ashley Roberson MD; Dr. Jonah Mckoy DO~ Signed [facility] Work Phone: 1(678) 145-215810-21-2025 Progress note Author Jonah Mckoy [facility] Note Date/Time January 27, 2025 1 1:18am [facility] Medical Records Department [address] [place] [id number] Progress Note - Hospitalist 01/27/25 0710 MR#: [id number] Acct: [id number] Name: FIONA GRUBER Rep #:[id number] : 1940 84 From: Jonah Mckoy DO PCP: Dr. Ashley Roberson MD Status:ADM I N Location: [facility] FF456-4 Reason for Visit Chief Complaint: Right wrist pain and swelling with redness Subjective Subjective Right wrist feeling better. No left knee pain today. Objective Data Objective Data Vital Signs: Vital Signs Temp Pulse Resp BP Pulse Ox O2 Del Method 36.6 C 71 14 129/67 H 96 Room Air 01/27/25 02:45 01/27/25 02:45 01/27/25 02:45 01/27/25 02:45 01/27/25 02:45 01/27/25 02:45 Oxygen Delivery Method Room Air Weight: 55.973 kg Body Mass Index (BMI) 20.5 Intake & Output: Intake and Output for Last 24 Hours 01/25/25 01/26/25 01/27/25 23:59 23:59 23:59 Intake Total 965.25 / 965.25 580 / 580 265 / 265 Balance 965.25 / 965.25 580 / 580 265 / 265 Lab / Micro Data 01/27/25 05:10 01/27/25 05:10 Labs: Laboratory Results - last 24 hr 01/24/25 12:50: Fluid Crystals CALCIUM PYROPHOS, Synovial Path Comment Reviewed 01/27/25 05:10: WBC 8.0, RBC 3.98 L, Hgb 11.1 L, Hct 33.8 L, MCV 84.9, MCH 27.9,MCHC 32.8, RDW Std Deviation 45.2 H, RDW Coeff of Vidal 14.6, Plt Count 206, MPV 11.2, Immature Gran % (Auto) 0.400, Neut % (Auto) 62.3, Lymph % (Auto) 23.1, [place] % (Auto) 13.1 H, Eos % (Auto) 0.7, Baso % (Auto) 0.4, Absolute Neuts (auto) 5.0, Absolute Lymphs (auto) 1.85, Nucleated RBC % 0, Sodium 141, Potassium 3.4, Chloride 108, Carbon Dioxide 22.9, Anion Gap 10, BUN 13, Creatinine 0.57 L, Estim Creat Clear Calc 46.26 L, Est GFR (MDRD) Non-Af 90, BUN/Creatinine Ratio 23.0 H, Glucose 114 H, Calcium 8.7 Micro: Microbiology 01/24/25 12:50 Fluid - Synovial (joint) Gram Stain - Final 01/24/25 12:50 Fluid - Synovial (joint) Body Fluid Culture - Preliminary No growth-Final to follow 01/24/25 12:50 Fluid - Synovial (joint) Anaerobic Culture - Preliminary No growth in 48 hours. 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 * patient will continue on Rocephin and vancomycin * ortho performed right wrist arthrocentesis. minimal cloudiness of the return of fluid. Compression stockinette was applied to the right hand and wrist. Ortho to reevaluate today for formal I+D. * Pathology showed crystals with calcium pyrophosphate and a few crystals of uric acid. WBCs 43 * Cultures negative for 48h. * DC with prednisone burst. 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 Chronic medical conditions: * hypothyroidism-patient is on Synthroid * dementia-complicates care, management, recovery, and prognosis VTE prophylaxis: SQ heparin. DW patient's at bedside. 01/27/25 1018 <Electronically signed by Jonah Mckoy DO> Cosigner Signature (if applicable): CC: ~ Signed [facility] Work Phone: [phone]) 729-773910-21-2025 Discharge summary [facility] Medical Records Department [address] [place] [address] Discharge Summary 01/27/25 1018 MR#: [id number] Acct: [id number] Name: FIONA GRUBER Rep #:[id number] : 1940 84 From: Jonah Mckoy DO PCP: Dr. Ashley Roberson MD Status:ADM I N Location: MS3 [id number] Providers Date of Admission: 01/24/25 Primary Care Physician: Dr. Ashley Roberson MD Consultations 01/24/25 17:03 Consult: Orthopedics Routine Consulting Provider: Lico Chance Reason for Consult: Right wrist septic arthritis EMERGENT Consult: No Notified: Yes Date Notified: 01/24/25 Time Notified: 15:28 Method of Notification: Verbal 01/26/25 08:06 Consult: Infectious Disease Routine Consulting Provider: Oscar Saravia Reason for Consult: right wrist septic arthritis. 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 * patient will continue on Rocephin and vancomycin * ortho performed right wrist arthrocentesis. minimal cloudiness of the return of fluid. Compression stockinette was applied to the right hand and wrist. Ortho to reevaluate today for formal I+D. * Pathology showed crystals with calcium pyrophosphate and a few crystals of uric acid. WBCs 43 * Cultures negative for 48h. * DC with prednisone burst. 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 Chronic medical conditions: * hypothyroidism-patient is on Synthroid * dementia-complicates care, management, recovery, and prognosis VTE prophylaxis: SQ heparin. DW patient's at bedside. Medications at Discharge Home Medications levothyroxine 25 mcg tablet 25 mcg PO DAILY #1 TAB 05/18/20 alendronate 70 mg/75 mL oral solution 70 mg PO QWEEK 03/14/21 escitalopram oxalate 10 mg tablet 10 mg PO DAILY DEPRESSION 01/25/25 rosuvastatin 10 mg tablet 10 mg PO QHS CHOLESTEROL 01/25/25 prednisone 20 mg tablet 40 mg (2 x 20 mg) PO DAILY #10 tabs 01/27/25 Hospital Course Summary of Care Provided Hospital Course: Pt presents w right wrist pain and swelling. Started on abx give concern for septic arthritis. Arthrocentesis performed and cultures have been negative, however noted calcium pyrophosphate and uric acid crystals (see pathology). So, abx to be discontinued and she will receive a prednisone burst. Weight bearing as tolerated. Weight / BMI Weight Weight: 55.973 kg Body Mass Index (BMI) 20.5 ABG / Lab / Microbiology Data 01/27/25 05:10 01/27/25 05:10 Laboratory: Laboratory Results - last 24 hr 01/24/25 12:50: Fluid Crystals CALCIUM PYROPHOS, Synovial Path Comment Reviewed 01/27/25 05:10: WBC 8.0, RBC 3.98 L, Hgb 11.1 L, Hct 33.8 L, MCV 84.9, MCH 27.9,MCHC 32.8, RDW Std Deviation 45.2 H, RDW Coeff of Vidal 14.6, Plt Count 206, MPV 11.2, Immature Gran % (Auto) 0.400, Neut% (Auto) 62.3, Lymph % (Auto) 23.1, [place] % (Auto) 13.1 H, Eos % (Auto) 0.7, Baso % (Auto) 0.4, Absolute Neuts (auto) 5.0, Absolute Lymphs (auto) 1.85, Nucleated RBC % 0, Sodium 141, Potassium 3.4, Chloride 108, Carbon Dioxide 22.9, Anion Gap 10, BUN 13, Creatinine 0.57 L, Estim Creat Clear Calc 46.26 L, Est GFR (MDRD) Non-Af 90, BUN/Creatinine Ratio 23.0 H, Glucose 114 H, Calcium 8.7 Microbiology: Microbiology 01/24/25 12:50 Fluid - Synovial (joint) Gram Stain - Final 01/24/25 12:50 Fluid - Synovial (joint) Body Fluid Culture - Preliminary No growth-Final to follow 01/24/25 12:50 Fluid - Synovial (joint) Anaerobic Culture - Preliminary No growth in 48 hours. 01/24/25 15:35 Wound - Wrist Skin and Soft Tissue MRSA/MSSA (PCR - Final D/C Instructions DC O2, CPAP, BIPAP Needs Home O2 Discharge instructions: No Meaningful Use Info Meaningful Use Meaningful Use Diagnoses (Choose all that apply): None applicable Discharge Plan Admission Admit Date/Time: 01/24/25 15:24 Primary Reason for Your Visit: psuedogout of right wrist. Attending Provider: Jonah Mckoy Primary Care Provider: Ashley Roberson Consulting Providers: Lico Chance; Brice Avila; Oscar Saravia Instructions Additional Instructions / Restrictions: 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 It is not from an infection. To help this, you will be on prednisone. Put weight on wrist as you are able to tolerate. Discharge Orders/Prescriptions Prescriptions: New prednisone 20 mg tablet 40 mg PO DAILY Qty: 10 0RF Continued alendronate 70 mg/75 mL Solution 70 mg PO QWEEK escitalopram oxalate 10 mg tablet 10 mg PO DAILY rosuvastatin 10 mg tablet 10 mg PO QHS levothyroxine 25 mcg tablet 25 mcg PO DAILY Qty: 1 0RF Referrals / Follow Up: Ashley Roberson MD [Primary Care Provider, Internal Medicine] - Within 2 Weeks Disposition Disposition (needs filled in before D/C Order can be placed): Home, Self Care Charges/Coding Visit Charges Inpatient E&M: 67982 Disch Hosp 01/27/25 1025 Cosigner Signature (if applicable): CC: Dr. Ashley Roberson MD; Dr. Jonah Mckoy DO~ Signed [facility]10-21-2025 Progress note [facility] Medical Records Department [address] [place] [address] Progress Note - Hospitalist 01/27/25 0710 MR#: [id number] Acct: [id number] Name: FIONA GRUBER Rep #:[id number] : 1940 84 From: Jonah Mckoy DO PCP: Dr. Ashley Roberson MD Status:ADM I N Location: MS3 [id number] Reason for Visit Chief Complaint: Right wrist pain and swelling with redness Subjective Subjective Right wrist feeling better. No left knee pain today. Objective Data Objective Data Vital Signs: Vital Signs Temp Pulse Resp BP Pulse Ox O2 Del Method 36.6 C 71 14 129/67 H 96 Room Air 01/27/25 02:45 01/27/25 02:45 01/27/25 02:45 01/27/25 02:45 01/27/25 02:45 01/27/25 02:45 Oxygen Delivery Method Room Air Weight: 55.973 kg Body Mass Index (BMI) 20.5 Intake & Output: Intake and Output for Last 24 Hours 01/25/25 01/26/25 01/27/25 23:59 23:59 23:59 Intake Total 965.25 / 965.25 580 / 580 265 / 265 Balance 965.25 / 965.25 580 / 580 265 / 265 Lab / Micro Data 01/27/25 05:10 01/27/25 05:10 Labs: Laboratory Results - last 24 hr 01/24/25 12:50: Fluid Crystals CALCIUM PYROPHOS, Synovial Path Comment Reviewed 01/27/25 05:10: WBC 8.0, RBC 3.98 L, Hgb 11.1 L, Hct 33.8 L, MCV 84.9, MCH 27.9,MCHC 32.8, RDW Std Deviation 45.2 H, RDW Coeff of Vidal 14.6, Plt Count 206, MPV 11.2, Immature Gran % (Auto) 0.400, Neut% (Auto) 62.3, Lymph % (Auto) 23.1, [place] % (Auto) 13.1 H, Eos % (Auto) 0.7, Baso % (Auto) 0.4, Absolute Neuts (auto) 5.0, Absolute Lymphs (auto) 1.85, Nucleated RBC % 0, Sodium 141, Potassium 3.4, Chloride 108, Carbon Dioxide 22.9, Anion Gap 10, BUN 13, Creatinine 0.57 L, Estim Creat Clear Calc 46.26 L, Est GFR (MDRD) Non-Af 90, BUN/Creatinine Ratio 23.0 H, Glucose 114 H, Calcium 8.7 Micro: Microbiology 01/24/25 12:50 Fluid - Synovial (joint) Gram Stain - Final 01/24/25 12:50 Fluid - Synovial (joint) Body Fluid Culture - Preliminary No growth-Final to follow 01/24/25 12:50 Fluid - Synovial (joint) Anaerobic Culture - Preliminary No growth in 48 hours. 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 * patient will continue on Rocephin and vancomycin * ortho performed right wrist arthrocentesis. minimal cloudiness of the return of fluid. Compression stockinette was applied to the right hand and wrist. Ortho to reevaluate today for formal I+D. * Pathology showed crystals with calcium pyrophosphate and a few crystals of uric acid. WBCs 43 * Cultures negative for 48h. * DC with prednisone burst. 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 Chronic medical conditions: * hypothyroidism-patient is on Synthroid * dementia-complicates care, management, recovery, and prognosis VTE prophylaxis: SQ heparin. DW patient's at bedside. 01/27/25 1018 Cosigner Signature (if applicable): CC: ~ Signed [facility]10-21-2025 [facility] Medical Records Department [address] [place] [address] Discharge Summary 01/27/25 1018 MR#: [id number] Acct: [id number] Name: FIONA GRUBER Rep #: [id number] : 1940 84 From: Jonah Mckoy DO PCP: Dr. Ashley Roberson MD Status:ADM IN Location: [place] [address] Providers Date of Admission: 01/24/25 Primary Care Physician: Dr. Ashley Roberson MD Consultations 01/24/25 17:03 Consult: Orthopedics Routine Consulting Provider: Lico Chance Reason for Consult: Right wrist septic arthritis EMERGENT Consult: No Notified: Yes Date Notified: 01/24/25 Time Notified: 15:28 Method of Notification: Verbal 01/26/25 08:06 Consult: Infectious Disease Routine Consulting Provider: Oscar Saravia Reason for Consult: right wrist septic arthritis. 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 * patient will continue on Rocephin and vancomycin * ortho performed right wrist arthrocentesis. minimal cloudiness of the return of fluid. Compression stockinette was applied to the right hand and wrist. Ortho to reevaluate today for formal I+D. * Pathology showed crystals with calcium pyrophosphate and a few crystals of uric acid. WBCs 43 * Cultures negative for 48h. * DC with prednisone burst. 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 Chronic medical conditions: * hypothyroidism-patient is on Synthroid * dementia-complicates care, management, recovery, and prognosis VTE prophylaxis: SQ heparin. DW patient's at bedside. Medications at Discharge Home Medications levothyroxine 25 mcg tablet 25 mcg PO DAILY #1 TAB 05/18/20 alendronate 70 mg/75 mL oral solution 70 mg PO QWEEK 03/14/21 escitalopram oxalate 10 mg tablet 10 mg PO DAILY DEPRESSION 01/25/25 rosuvastatin 10 mg tablet 10 mg PO QHS CHOLESTEROL 01/25/25 prednisone 20 mg tablet 40 mg (2 x 20 mg) PO DAILY #10 tabs 01/27/25 Hospital Course Summary of Care Provided Hospital Course: Pt presents w right wrist pain and swelling. Started on abx give concern for septic arthritis. Arthrocentesis performed and cultures have been negative, however noted calcium pyrophosphate and uric acid crystals (see pathology). So, abx to be discontinued and she will receive a prednisone burst. Weight bearing as tolerated. Weight / BMI Weight Weight: 55.973 kg Body Mass Index (BMI) 20.5 ABG / Lab / Microbiology Data 01/27/25 05:10 01/27/25 05:10 Laboratory: Laboratory Results - last 24 hr 01/24/25 12:50: Fluid Crystals CALCIUM PYROPHOS, Synovial Path Comment Reviewed 01/27/25 05:10: WBC 8.0, RBC 3.98 L, Hgb 11.1 L, Hct 33.8 L, MCV 84.9, MCH 27.9, MCHC 32.8, RDW Std Deviation 45.2 H, RDW Coeff of Vidal 14.6, Plt Count 206, MPV 11.2, Immature Gran % (Auto) 0.400, Neut % (Auto) 62.3, Lymph % (Auto) 23.1, [place] % (Auto) 13.1 H, Eos % (Auto) 0.7, Baso % (Auto) 0.4, Absolute Neuts (auto) 5.0, Absolute Lymphs (auto) 1.85, Nucleated RBC % 0, Sodium 141, Potassium 3.4, Chloride 108, Carbon Dioxide 22.9, Anion Gap 10, BUN 13, Creatinine 0.57 L, Estim Creat Clear Calc 46.26 L, Est GFR (MDRD) Non-Af 90, BUN/Creatinine Ratio 23.0 H, Glucose 114 H, Calcium 8.7 Microbiology: Microbiology 01/24/25 12:50 Fluid - Synovial (joint) Gram Stain - Final 01/24/25 12:50 Fluid - Synovial (joint) Body Fluid Culture - Preliminary No growth-Final to follow 01/24/25 12:50 Fluid - Synovial (joint) Anaerobic Culture - Preliminary No growth in 48 hours. 01/24/25 15:35 Wound - Wrist Skin and Soft Tissue MRSA/MSSA (PCR - Final D/C Instructions DC O2, CPAP, BIPAP Needs Home O2 Discharge instructions: No Meaningful Use Info Meaningful Use Meaningful Use Diagnoses (Choose all that apply): None applicable Discharge Plan Admission Admit Date/Time: 01/24/25 15:24 Primary Reason for Your Visit: psuedogout of right wrist. Attending Provider: Jonah Mckoy Primary Care Provider: Ashley Roberson Consulting Providers: Lico Chance; Brice Avila; Oscar Saravia Instructions Additional Instructions / Restrictions: 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 It is not from an infection. To help this, you will be on prednisone. Put weight on wrist as you are able to tolerate. Discharge Orders/Prescriptions Prescriptions: New (more content not included)...[facility]10-20-2025 Consult note Author Oscar Saravia [facility] Note Date/Time January 26, 2025 4 :56pm [facility] Medical Records Department [address] [place] [address] Consultation - Infectious Dx 01/26/25 1554 MR#: [id number] Acct: [id number] Name: FIONA GRUBER Rep #:[id number] : 1940 84 From: Oscar freedman MD PCP: Dr. Ashley Roberson MD Status:ADM I N Location: [place] [address] Assessment & Plan Assessment/Plan (1) Septic arthritis of right wrist: QUALIFIERS: Septic arthritis organism: due to unspecified organism Qualified Code(s): M00.9 - Pyogenic arthritis, unspecified PLAN: Fluid cx neg so far, improving on vanc/ceftriaxone will follow, thank you HPI Consult Data Date of Consult: 01/26/25 HPI Narrative Reason for Consultation: septic arthritis HPI Narrative: FIONA GRUBER, is a 84 F with h/o dementia, presented 01/24 to ED with two days progressive R wrist pain, swelling, redness. No fever or chiills, no known inciting event. Admitted here on vanc/ceftriaxone, wrist less sore. Full ROS performed and neg except as noted above PFSH Medical History Hyperparathyroidism HTN (hypertension) Hypercalcemia Hearing disorder History of back problems Arthritis Allergies Osteoporosis Home Medications ?Medication ?Instructions ?Recorded ?Last Taken ?Type levothyroxine 25 mcg tablet 25 mcg PO DAILY #1 TAB 12/28 Unknown Rx alendronate 70 mg/75 mL oral 70 mg PO QWEEK 03/14/21 U nknown History solution escitalopram oxalate 10 mg tablet 10 mg PO DAILY DEPRE SSION 01/25/25 Unknown History rosuvastatin 10 mg tablet 10 mg PO QHS CHOLESTEROL Unknown History Allergy/AdvReac Type Severity Reaction Status Date / Time amoxicillin Allergy Unknown Verified 01/24/25 09:15 Penicillins (PCN) Allergy Unknown Verified 01/24/25 09:15 Family History Other Asthma Social History Smoking Status: Never smoker alcohol intake: never substance use type: does not use Physical Exam Const alert and no apparent distress General Appearance: cooperative HEENT normocephalic and head/scalp atraumatic Eyes PERRL and EOMs intact bilaterally Neck supple and No nodes Resp normal air movement and clear to auscultation bilaterally Cardio regular rate and regular rhythm GI soft to palpation, non-tender and non-distended Extremity General Extremity: edema Skin Skin Narrative: R wrist swelling, warmth, tenderness Neuro CN's II-XII intact bilaterally Lab / Micro Data Attestation: I reviewed the patient's lab results. 01/26/25 03:00 01/26/25 03:00 Labs: Laboratory Results - last 24 hr 01/24/25 12:50: Fluid Crystals CALCIUM PYROPHOS, Synovial Path Comment Reviewed 01/26/25 03:00: WBC 10.4, RBC 3.85 L, Hgb 11.0 L, Hct 33.3 L, MCV 86.5, MCH 28.6, MCHC 33.0, RDW Std Deviation 46.0 H, RDW Coeff of Vidal 14.5, Plt Count 185,MPV 11.6, Immature Gran % (Auto) 0.300, Neut % (Auto) 67.8, Lymph % (Auto) 19.1,[place] % (Auto) 12.3 H, Eos % (Auto) 0.3, Baso % (Auto) 0.2, Absolute Neuts (auto)7.1, Absolute Lymphs (auto) 1.99, Nucleated RBC % 0, Sodium 138, Potassium 3.8, Chloride 106, Carbon Dioxide 23.9, Anion Gap 8, BUN 16, Creatinine 0.61 L, EstimCreat Clear Calc 46.26 L, Est GFR (MDRD) Non-Af 88, BUN/Creatinine Ratio 25.3 H,Glucose 102 H, Calcium 8.3, Vancomycin Trough 8.0 Micro: Microbiology 01/24/25 12:50 Fluid - Synovial (joint) Gram Stain - Final 01/24/25 12:50 Fluid - Synovial (joint) Body Fluid Culture - Preliminary No growth-Final to follow 01/24/25 12:50 Fluid - Synovial (joint) Anaerobic Culture - Preliminary No growth in 48 hours. 01/26/25 3378 <Electronically signed by Oscar Saravia MD> Cosigner Signature (if applicable): CC: Dr. Ashley Roberson MD~ Signed [facility] Work Phone: 1(365) 164-695510-20-2025 Consult note [facility] Medical Records Department [address] [place] [address] Consultation - Infectious Dx 01/26/25 1554 MR#: [id number] Acct: [id number] Name: FIONA GRUBER Rep #:[id number] : 1940 84 From: Oscar freedman MD PCP: Dr. Ashley Roberson MD Status:ADM I N Location: [facility] PT605-7 Assessment & Plan Assessment/Plan (1) Septic arthritis of right wrist: QUALIFIERS: Septic arthritis organism: due to unspecified organism Qualified Code(s): M00.9 - Pyogenic arthritis, unspecified PLAN: Fluid cx neg so far, improving on vanc/ceftriaxone will follow, thank you HPI Consult Data Date of Consult: 01/26/25 HPI Narrative Reason for Consultation: septic arthritis HPI Narrative: FIONA GRUBER, is a 84 F with h/o dementia, presented 01/24 to ED with two days progressive R wrist pain, swelling, redness. No fever or chiills, no known inciting event. Admitted here on vanc/ceftriaxone, wrist less sore. Full ROS performed and neg except as noted above [facility] Medical History Hyperparathyroidism HTN (hypertension) Hypercalcemia Hearing disorder History of back problems Arthritis Allergies Osteoporosis Home Medications ?Medication ?Instructions ?Recorded ?Last Taken ?Type levothyroxine 25 mcg tablet 25 mcg PO DAILY #1 TAB 12/28 Unknown Rx alendronate 70 mg/75 mL oral 70 mg PO QWEEK 03/14/21 U nknown History solution escitalopram oxalate 10 mg tablet 10 mg PO DAILY DEPRE SSION 01/25/25 Unknown History rosuvastatin 10 mg tablet 10 mg PO QHS CHOLESTEROL Unknown History Allergy/AdvReac Type Severity Reaction Status Date / Time amoxicillin Allergy Unknown Verified 01/24/25 09:15 Penicillins (PCN) Allergy Unknown Verified 01/24/25 09:15 Family History Other Asthma Social History Smoking Status: Never smoker alcohol intake: never substance use type: does not use Physical Exam Const alert and no apparent distress General Appearance: cooperative HEENT normocephalic and head/scalp atraumatic Eyes PERRL and EOMs intact bilaterally Neck supple and No nodes Resp normal air movement and clear to auscultation bilaterally Cardio regular rate and regular rhythm GI soft to palpation, non-tender and non-distended Extremity General Extremity: edema Skin Skin Narrative: R wrist swelling, warmth, tenderness Neuro CN's II-XII intact bilaterally Lab / Micro Data Attestation: I reviewed the patient's lab results. 01/26/25 03:00 01/26/25 03:00 Labs: Laboratory Results - last 24 hr 01/24/25 12:50: Fluid Crystals CALCIUM PYROPHOS, Synovial Path Comment Reviewed 01/26/25 03:00: WBC 10.4, RBC 3.85 L, Hgb 11.0 L, Hct 33.3 L, MCV 86.5, MCH 28.6, MCHC 33.0, RDW Std Deviation 46.0 H, RDW Coeff of Vidal 14.5, Plt Count 185,MPV 11.6, Immature Gran % (Auto) 0.300, Neut % (Auto) 67.8, Lymph % (Auto) 19.1,[place] % (Auto) 12.3 H, Eos % (Auto) 0.3, Baso % (Auto) 0.2, Absolute Neuts (auto)7.1, Absolute Lymphs (auto) 1.99, Nucleated RBC % 0, Sodium 138, Potassium 3.8, Chloride 106, Carbon Dioxide 23.9, Anion Gap 8, BUN 16, Creatinine 0.61 L, EstimCreat Clear Calc 46.26 L, Est GFR (MDRD) Non-Af 88, BUN/Creatinine Ratio 25.3 H,Glucose 102 H, Calcium 8.3, Vancomycin Trough 8.0 Micro: Microbiology 01/24/25 12:50 Fluid - Synovial (joint) Gram Stain - Final 01/24/25 12:50 Fluid - Synovial (joint) Body Fluid Culture - Preliminary No growth-Final to follow 01/24/25 12:50 Fluid - Synovial (joint) Anaerobic Culture - Preliminary No growth in 48 hours. 01/26/25 7042 Cosigner Signature (if applicable): CC: Dr. Ashley Roberson MD~ Signed [facility]10-20-2025 Progress note Author Lico Chance [facility] Note Date/Time January 26, 2025 2 :39pm [facility] Medical Records Department [address] [place] [address] Progress Note - Orthopedic 01/26/25 09 MR#: [id number] Acct: [id number] Name: FIONA GRUBER Rep #:[id number] : 1940 84 From: Lico leach DO PCP: Dr. Ashley Roberson MD Status:ADM I N Location: [place] VO087-4 Subjective Subjective Patient seen and examined this morning. Pain improved in her right wrist. Range of motion appears to be improving somewhat. Does complain of some left knee pain. Reports prior unicompartmental arthroplasty. Denies fevers, chills,nausea or vomiting, chest pain or shortness of breath. at bedside. Reports pain is drastically improved from admission in her right wrist. Objective Data Objective Data Vital Signs: Vital Signs Temp Pulse Resp BP Pulse Ox O2 Del Method 98.1 F 90 16 135/71 H 98 Room Air 01/26/25 06:44 01/26/25 06:44 01/26/25 06:44 01/26/25 06:44 01/26/25 06:44 01/26/25 06:44 Oxygen Delivery Method Room Air Weight: 123 lb 6.4 oz Body Mass Index (BMI) 20.5 Intake & Output: Intake and Output for Last 24 Hours 01/24/25 01/25/25 01/26/25 23:59 23:59 23:59 Intake Total 315 / 315 965.25 / 965.25 265 / 265 Balance 315 / 315 965.25 / 965.25 265 / 265 Lab / Micro Data 01/26/25 03:00 01/26/25 03:00 Labs: Laboratory Results - last 24 hr 01/26/25 03:00: WBC 10.4, RBC 3.85 L, Hgb 11.0 L, Hct 33.3 L, MCV 86.5, MCH 28.6, MCHC 33.0, RDW Std Deviation 46.0 H, RDW Coeff of Vidal 14.5, Plt Count 185,MPV 11.6, Immature Gran % (Auto) 0.300, Neut % (Auto) 67.8, Lymph % (Auto) 19.1,[place] % (Auto) 12.3 H, Eos % (Auto) 0.3, Baso % (Auto) 0.2, Absolute Neuts (auto)7.1, Absolute Lymphs (auto) 1.99, Nucleated RBC % 0, Sodium 138, Potassium 3.8, Chloride 106, Carbon Dioxide 23.9, Anion Gap 8, BUN 16, Creatinine 0.61 L, EstimCreat Clear Calc 46.26 L, Est GFR (MDRD) Non-Af 88, BUN/Creatinine Ratio 25.3 H,Glucose 102 H, Calcium 8.3, Vancomycin Trough 8.0 Micro: Microbiology 01/24/25 12:50 Fluid - Synovial (joint) Gram Stain - Final 01/24/25 12:50 Fluid - Synovial (joint) Body Fluid Culture - Preliminary No growth-Final to follow 01/24/25 15:35 Wound - Wrist Skin and Soft Tissue MRSA/MSSA (PCR - Final Physical Exam Narrative General -A&Ox3, NAD, appears stated age. Vital signs stable, afebrile. Respiratory -normal work of breathing, no intercostal retractions. CV -pulses regular, brisk capillary refill ?4 limbs. Abdomen-soft, nontender, nondistended. No guarding, rigidity, rebound tenderness. Musculoskeletal/neurologic - Right upper extremity: Edema and noted right wrist slightly improved. No significant swelling in the hand. Cardinal motions of the hand are intact. Range of motion improved right wrist still somewhat limited. Trace fluctuance within the wrist. No pain with short arc flexor or extensor tendon excursion. Brisk capillary refill in the digits. Small nevus noted dorsal wrist without subcutaneous purulence. Faint erythema noted right wrist without lymphangitis. Left knee: No effusion. No focal tenderness. No short arc range of motion pain. Stable varus valgus stressing. Sensation intact throughout. DF, PF, EHL5/5. DP 2+. Calf is soft nontender with a negative Homans. Assessment & Plan Assessment/Plan (1) Septic arthritis of right wrist: QUALIFIERS: Septic arthritis organism: due to unspecified organism Qualified Code(s): M00.9 - Pyogenic arthritis, unspecified PLAN: Patient seen and examined. She appears to be improving clinically with antibiotics and serial aspirations. I question if this is a true septic arthritis or reactive inflammatory arthritis secondary to adjacent cellulitis. I do not recommend surgical intervention at this time given the clinical improvement. Infectious disease has been consulted. I would suspect she would benefit from at least 2 weeks of antibiotics upon discharge for treatment of cellulitis at the very least. Continue strict elevation of the right hand. From my standpoint, close outpatient follow- up seems reasonable. Will defer to primary if discharge is indicated. I spoke with the patient and her . I am in the office 01/29 and would beokay with close follow-up and see the patient day to ensure continued clinical improvement. Otherwise I will plan to continue to follow the patient is admitted. With regards to her left knee, she has no effusion or signs of infection. She appears to be stiff from immobilization over the weekend. I encouraged the patient to exercise her knees in bed and get up and move as tolerated with assistance. No signs of DVT on exam. 01/26/25 0919 <Electronically signed by Lico Chance DO> Cosigner Signature (if applicable): CC: ~ Signed ADDENDUM by Dr. Lico Chance DO on 01/26/25 at 1339 Addendum Pathology review of arthrocentesis from 01/24/2025 shows pseudogout. No plan for surgery. Defer to primary with regards to medical treatment for pseudogout. I will plan to sign off at this time. Patient can follow-up at [facility] within the week or with her PCP. 01/26/25 7521<Electronically signed by Lico Chance DO> Cosigner Signature (if applicable): cc: ~* Signed [facility] Work Phone: 1(479) 108-380110-20-2025 Progress note Author Jonah Mckoy [facility] Note Date/Time January 26, 2025 1 :07pm [facility] Medical Records Department [address] [place] [address] Progress Note - Hospitalist 01/26/25 4144 MR#: [id number] Acct: [id number] Name: FIONA GRUBER Rep #:[id number] : 1940 84 From: Jonah Mckoy DO PCP: Dr. Ashley Roberson MD Status:ADM I N Location: [place] [id number] Reason for Visit Chief Complaint: Right wrist pain and swelling with redness Subjective Subjective Complaining of left knee pain. Objective Data Objective Data Vital Signs: Vital Signs Temp Pulse Resp BP Pulse Ox O2 Del Method 36.7 C 90 16 135/71 H 98 Room Air 01/26/25 06:44 01/26/25 06:44 01/26/25 06:44 01/26/25 06:44 01/26/25 06:44 01/26/25 06:44 Oxygen Delivery Method Room Air Weight: 55.973 kg Body Mass Index (BMI) 20.5 Intake & Output: Intake and Output for Last 24 Hours 01/24/25 01/25/25 01/26/25 23:59 23:59 23:59 Intake Total 315 / 315 965.25 / 965.25 265 / 265 Balance 315 / 315 965.25 / 965.25 265 / 265 Lab / Micro Data 01/26/25 03:00 01/26/25 03:00 Labs: Laboratory Results - last 24 hr 01/26/25 03:00: WBC 10.4, RBC 3.85 L, Hgb 11.0 L, Hct 33.3 L, MCV 86.5, MCH 28.6, MCHC 33.0, RDW Std Deviation 46.0 H, RDW Coeff of Vidal 14.5, Plt Count 185,MPV 11.6, Immature Gran % (Auto) 0.300, Neut % (Auto) 67.8, Lymph % (Auto) 19.1,[place] % (Auto) 12.3 H, Eos % (Auto) 0.3, Baso % (Auto) 0.2, Absolute Neuts (auto)7.1, Absolute Lymphs (auto) 1.99, Nucleated RBC % 0, Sodium 138, Potassium 3.8, Chloride 106, Carbon Dioxide 23.9, Anion Gap 8, BUN 16, Creatinine 0.61 L, EstimCreat Clear Calc 46.26 L, Est GFR (MDRD) Non-Af 88, BUN/Creatinine Ratio 25.3 H,Glucose 102 H, Calcium 8.3, Vancomycin Trough 8.0 Micro: Microbiology 01/24/25 12:50 Fluid - Synovial (joint) Gram Stain - Final 01/24/25 12:50 Fluid - Synovial (joint) Body Fluid Culture - Preliminary No growth-Final to follow 01/24/25 15:35 Wound - Wrist Skin and Soft Tissue MRSA/MSSA (PCR - Final Physical Exam Const alert and no apparent distress HEENT head/scalp atraumatic and moist oral mucous membranes Neck no lymphadenopathy Resp normal respiratory effort, no retractions, no use of accessory muscles and clearto auscultation bilaterally Cardio regular rate, regular rhythm, S1 normal heart sound and S2 normal heart sound GI normal to inspection, nondistended, normoactive bowel sounds, soft to palpation,non-tender and non-distended Extremity normal to inspection and full ROM Extremity Narrative: swelling right wrist. bogginess of posterior left knee w/o erythema. Neuro Sensorium / Orientation: awake and alert Assessment & Plan Assessment/Plan (1) Septic arthritis of right wrist: QUALIFIERS: Septic arthritis organism: due to unspecified organism Qualified Code(s): M00.9 - Pyogenic arthritis, unspecified PLAN: Plan Septic arthritis of the right wrist * patient will continue on Rocephin and vancomycin * ortho performed right wrist arthrocentesis. minimal cloudiness of the return of fluid. Compression stockinette was applied to the right hand and wrist. Ortho to reevaluate today for formal I+D. * no crystals on arthrocentesis. WBCs 43 * ortho felt not true septic arthritis but rather inflammatory arthritis v adjacent cellulitis. 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 Chronic medical conditions: * hypothyroidism-patient is on Synthroid * dementia-complicates care, management, recovery, and prognosis VTE prophylaxis: SQ heparin. DW patient's at bedside. Charges/Coding Visit Charges Inpatient E&M: 27710 Subs Hosp L2 01/26/25 1207 <Electronically signed by Jonah Mckoy DO> Cosigner Signature (if applicable): CC: ~ Signed [facility] Work Phone: 1([phone]) 515-102910-20-2025 Progress note [facility] Medical Records Department [address] [place] [address] Progress Note - Orthopedic 01/26/25 0911 MR#: [id number] Acct: [id number] Name: FIONA GRUBER Rep #:[id number] : 1940 84 From: Lico leach DO PCP: Dr. Ashley Roberson MD Status:ADM I N Location: [place] KY340-4 Subjective Subjective Patient seen and examined this morning. Pain improved in her right wrist. Range of motion appears to be improving somewhat. Does complain of some left knee pain. Reports prior unicompartmental arthroplasty. Denies fevers, chills,nausea or vomiting, chest pain or shortness of breath. at bedside. Reports pain is drastically improved from admission in her right wrist. Objective Data Objective Data Vital Signs: Vital Signs Temp Pulse Resp BP Pulse Ox O2 Del Method 98.1 F 90 16 135/71 H 98 Room Air 01/26/25 06:44 01/26/25 06:44 01/26/25 06:44 01/26/25 06:44 01/26/25 06:44 01/26/25 06:44 Oxygen Delivery Method Room Air Weight: 123 lb 6.4 oz Body Mass Index (BMI) 20.5 Intake & Output: Intake and Output for Last 24 Hours 01/24/25 01/25/25 01/26/25 23:59 23:59 23:59 Intake Total 315 / 315 965.25 / 965.25 265 / 265 Balance 315 / 315 965.25 / 965.25 265 / 265 Lab / Micro Data 01/26/25 03:00 01/26/25 03:00 Labs: Laboratory Results - last 24 hr 01/26/25 03:00: WBC 10.4, RBC 3.85 L, Hgb 11.0 L, Hct 33.3 L, MCV 86.5, MCH 28.6, MCHC 33.0, RDW Std Deviation 46.0 H, RDW Coeff of Vidal 14.5, Plt Count 185,MPV 11.6, Immature Gran % (Auto) 0.300, Neut % (Auto) 67.8, Lymph % (Auto) 19.1,[place] % (Auto) 12.3 H, Eos % (Auto) 0.3, Baso % (Auto) 0.2, Absolute Neuts (auto)7.1, Absolute Lymphs (auto) 1.99, Nucleated RBC % 0, Sodium 138, Potassium 3.8, Chloride 106, Carbon Dioxide 23.9, Anion Gap 8, BUN 16, Creatinine 0.61 L, EstimCreat Clear Calc 46.26 L, Est GFR (MDRD) Non-Af 88, BUN/Creatinine Ratio 25.3 H,Glucose 102 H, Calcium 8.3, Vancomycin Trough 8.0 Micro: Microbiology 01/24/25 12:50 Fluid - Synovial (joint) Gram Stain - Final 01/24/25 12:50 Fluid - Synovial (joint) Body Fluid Culture - Preliminary No growth-Final to follow 01/24/25 15:35 Wound - Wrist Skin and Soft Tissue MRSA/MSSA (PCR - Final Physical Exam Narrative General -A&Ox3, NAD, appears stated age. Vital signs stable, afebrile. Respiratory -normal work of breathing, no intercostal retractions. CV -pulses regular, brisk capillary refill ?4 limbs. Abdomen-soft, nontender, nondistended. No guarding, rigidity, rebound tenderness. Musculoskeletal/neurologic - Right upper extremity: Edema and noted right wrist slightly improved. No significant swelling in the hand. Cardinal motions of the hand are intact. Range of motion improved right wrist still somewhatlimited. Trace fluctuance within the wrist. No pain with short arc flexor or extensor tendon excursion. Brisk capillary refill in the digits. Small nevus noted dorsal wrist without subcutaneous purulence. Faint erythema noted right wrist without lymphangitis. Left knee: No effusion. No focal tenderness. No short arc range of motion pain. Stable varus valgusstressing. Sensation intact throughout. DF, PF, EHL5/5. DP 2+. Calf is soft nontender with a negative Homans. Assessment & Plan Assessment/Plan (1) Septic arthritis of right wrist: QUALIFIERS: Septic arthritis organism: due to unspecified organism Qualified Code(s): M00.9 - Pyogenic arthritis, unspecified PLAN: Patient seen and examined. She appears to be improving clinically with antibiotics and serialaspirations. I question if this is a true septic arthritis or reactive inflammatory arthritis secondary to adjacent cellulitis. I do not recommend surgical intervention at this time given the clinical improvement. Infectious disease has been consulted. I would suspect she would benefit from at least 2 weeks of antibiotics upon discharge for treatment of cellulitis at the very least. Continue strict elevation of the right hand. From my standpoint, close outpatient follow-up seems reasonable. Will defer to primary if discharge is indicated. I spoke with the patient and her . I am in the office 01/29 and would beokay with close follow-up and see the patient day to ensure continued clinical improvement. Otherwise I will plan to continue to follow the patient is admitted. With regards to her left knee, she has no effusion or signs of infection. She appears to be stiff from immobilization over the weekend. I encouraged the patient to exercise her knees in bed and get up and move as tolerated with assistance. No signs of DVT on exam. 01/26/25 0919 Cosigner Signature (if applicable): CC: ~ Signed ADDENDUM by Dr. Lico Chance DO on 01/26/25 at 1339 Addendum Pathology review of arthrocentesis from 01/24/2025 shows pseudogout. No plan for surgery. Defer to primary with regards to medical treatment for pseudogout. I will plan to sign off at this time. Patient can follow-up at [facility] within the week or with her PCP. 01/26/25 1339 Cosigner Signature (if applicable): cc: ~* Signed [facility]10-20-2025 Progress note [facility] Medical Records Department [address] [place] [address] Progress Note - Hospitalist 01/26/25 0759 MR#: [id number] Acct: [id number] Name: FIONA GRUBER Rep #:[id number] : 1940 84 From: Jonah Mckoy DO PCP: Dr. Ashley Roberson MD Status:ADM I N Location: [place] [address] Reason for Visit Chief Complaint: Right wrist pain and swelling with redness Subjective Subjective Complaining of left knee pain. Objective Data Objective Data Vital Signs: Vital Signs Temp Pulse Resp BP Pulse Ox O2 Del Method 36.7 C 90 16 135/71 H 98 Room Air 01/26/25 06:44 01/26/25 06:44 01/26/25 06:44 01/26/25 06:44 01/26/25 06:44 01/26/25 06:44 Oxygen Delivery Method Room Air Weight: 55.973 kg Body Mass Index (BMI) 20.5 Intake & Output: Intake and Output for Last 24 Hours 10/18/25 10/19/25 10/20/25 23:59 23:59 23:59 Intake Total 315 / 315 965.25 / 965.25 265 / 265 Balance 315 / 315 965.25 / 965.25 265 / 265 Lab / Micro Data 01/26/25 03:00 01/26/25 03:00 Labs: Laboratory Results - last 24 hr 01/26/25 03:00: WBC 10.4, RBC 3.85 L, Hgb 11.0 L, Hct 33.3 L, MCV 86.5, MCH 28.6, MCHC 33.0, RDW Std Deviation 46.0 H, RDW Coeff of Vidal 14.5, Plt Count 185,MPV 11.6, Immature Gran % (Auto) 0.300, Neut % (Auto) 67.8, Lymph % (Auto) 19.1,[place] % (Auto) 12.3 H, Eos % (Auto) 0.3, Baso % (Auto) 0.2, Absolute Neuts (auto)7.1, Absolute Lymphs (auto) 1.99, Nucleated RBC % 0, Sodium 138, Potassium 3.8, Chloride 106, Carbon Dioxide 23.9, Anion Gap 8, BUN 16, Creatinine 0.61 L, EstimCreat Clear Calc 46.26 L, Est GFR (MDRD) Non-Af 88, BUN/Creatinine Ratio 25.3 H,Glucose 102 H, Calcium 8.3, Vancomycin Trough 8.0 Micro: Microbiology 01/24/25 12:50 Fluid - Synovial (joint) Gram Stain - Final 01/24/25 12:50 Fluid - Synovial (joint) Body Fluid Culture - Preliminary No growth-Final to follow 01/24/25 15:35 Wound - Wrist Skin and Soft Tissue MRSA/MSSA (PCR - Final Physical Exam Const alert and no apparent distress HEENT head/scalp atraumatic and moist oral mucous membranes Neck no lymphadenopathy Resp normal respiratory effort, no retractions, no use of accessory muscles and clearto auscultation bilaterally Cardio regular rate, regular rhythm, S1 normal heart sound and S2 normal heart sound GI normal to inspection, nondistended, normoactive bowel sounds, soft to palpation,non-tender and non-distended Extremity normal to inspection and full ROM Extremity Narrative: swelling right wrist. bogginess of posterior left knee w/o erythema. Neuro Sensorium / Orientation: awake and alert Assessment & Plan Assessment/Plan (1) Septic arthritis of right wrist: QUALIFIERS: Septic arthritis organism: due to unspecified organism Qualified Code(s): M00.9 - Pyogenic arthritis, unspecified PLAN: Plan Septic arthritis of the right wrist * patient will continue on Rocephin and vancomycin * ortho performed right wrist arthrocentesis. minimal cloudiness of the return of fluid. Compression stockinette was applied to the right hand and wrist. Ortho to reevaluate today for formal I+D. * no crystals on arthrocentesis. WBCs 43 * ortho felt not true septic arthritis but rather inflammatory arthritis v adjacent cellulitis. 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 Chronic medical conditions: * hypothyroidism-patient is on Synthroid * dementia-complicates care, management, recovery, and prognosis VTE prophylaxis: SQ heparin. DW patient's at bedside. Charges/Coding Visit Charges Inpatient E&M: 18494 Subs Hosp L2 01/26/25 1205 Cosigner Signature (if applicable): CC: ~ Signed [facility]10-20-2025 Consult note Author Jan Esteves [facility] Note Date/Time January 26, 2025 6 :02am [facility] Medical Records Department [address] [place] [address] Pharmacokinetic/Renal -Consult 01/26/25 0501 MR#: [id number] Acct: [id number] Name: FIONA GRUBER Rep #:[id number] : 1940 84 From: Jan Rankin od PCP: Dr. Ashley Roberson MD Status:ADM I N Y Location: [place] [address] Consult Antibiotic Management Pharmacy has been consulted to manage selected antibiotic: Vancomycin Type of Intervention Type of Consult: Follow-up Labs Labs: Sodium 138 mmol/L (133-145) 01/26/25 03:00 Potassium 3.8 mmol/L (3.3-5.1) 01/26/25 03:00 Chloride 106 mmol/L (98-108) 01/26/25 03:00 Carbon Dioxide 23.9 mmol/L (21.0-32.0) 01/26/25 03:00 Anion Gap 8 (5-15) 01/26/25 03:00 BUN 16 mg/dL (4-19) 01/26/25 03:00 Creatinine 0.61 mg/dL (0.70-1.20) L 01/26/25 03:00 Est GFR (MDRD) Non-Af 88 (>60) 01/26/25 03:00 BUN/Creatinine Ratio 25.3 RATIO (10-20) H 01/26/25 03:00 Glucose 102 mg/dL (70-99) H 01/26/25 03:00 Vancomycin Trough 8.0 ug/mL (5.0-15.0) 01/26/25 03:00 Microbiology Microbiology: Microbiology 01/24/25 12:50 Fluid - Synovial (joint) Gram Stain - Final 01/24/25 12:50 Fluid - Synovial (joint) Body Fluid Culture - Preliminary No growth-Final to follow 01/24/25 15:35 Wound - Wrist Skin and Soft Tissue MRSA/MSSA (PCR - Final Goal Trough Goal Trough: 15-20 mcg/mL Pharmacy Plan for Drug Dosing Pharmacy Plan for Drug Dosing: Pharmacy Service will continue to monitor and adjust dosing as required. TROUGH 8.0 @ 13 HOURS. INCREASE TO 750MG Q12H AND DRAW TROUGH PRIOR TO 4TH DOSE Follow-Up Labs Follow-Up Labs: Trough: Vancomycin Date/Time Labs Ordered Labs to be done on [date and time ordered]: 01/27 @ 1530 01/26/25501 <Electronically signed by Jan norman> Date _ Jan Saldana Signature (if applicable): Date CC: ~ Signed [facility] Work Phone: 1(482) 414-935910-20-2025 Consult note [facility] Medical Records Department [address] [address] Pharmacokinetic/Renal -Consult 01/26/25500 MR#: [id number] Acct: [id number] Name: FIONA GRUBER Rep #:[id number] : 1940 84 From: Jan Rankin od PCP: Dr. Ashley Roberson MD Status:ADM I N Y Location: [place] [address] Consult Antibiotic Management Pharmacy has been consulted to manage selected antibiotic: Vancomycin Type of Intervention Type of Consult: Follow-up Labs Labs: Sodium 138 mmol/L (133-145) 01/26/25 03:00 Potassium 3.8 mmol/L (3.3-5.1) 01/26/25 03:00 Chloride 106 mmol/L (98-108) 01/26/25 03:00 Carbon Dioxide 23.9 mmol/L (21.0-32.0) 01/26/25 03:00 Anion Gap 8 (5-15) 01/26/25 03:00 BUN 16 mg/dL (4-19) 01/26/25 03:00 Creatinine 0.61 mg/dL (0.70-1.20) L 01/26/25 03:00 Est GFR (MDRD) Non-Af 88 (>60) 01/26/25 03:00 BUN/Creatinine Ratio 25.3 RATIO (10-20) H 01/26/25 03:00 Glucose 102 mg/dL (70-99) H 01/26/25 03:00 Vancomycin Trough 8.0 ug/mL (5.0-15.0) 01/26/25 03:00 Microbiology Microbiology: Microbiology 01/24/25 12:50 Fluid - Synovial (joint) Gram Stain - Final 01/24/25 12:50 Fluid - Synovial (joint) Body Fluid Culture - Preliminary No growth-Final to follow 01/24/25 15:35 Wound - Wrist Skin and Soft Tissue MRSA/MSSA (PCR - Final Goal Trough Goal Trough: 15-20 mcg/mL Pharmacy Plan for Drug Dosing Pharmacy Plan for Drug Dosing: Pharmacy Service will continue to monitor and adjust dosing as required. TROUGH 8.0 @ 13 HOURS. INCREASE TO 750MG Q12H AND DRAW TROUGH PRIOR TO 4TH DOSE Follow-Up Labs Follow-Up Labs: Trough: Vancomycin Date/Time Labs Ordered Labs to be done on [date and time ordered]: 01/27 @ 1530 01/26/25 0502 lood> Date _ Jan Saldana Signature (if applicable): Date CC: ~ Signed [facility]10-19-2025 Progress note Author Brice Avila [facility] Note Date/Time January 25, 2025 6 :02pm [facility] Medical Records Department [address] [place] [address] Progress Note - Hospitalist 01/25/25 1659 MR#: [id number] Acct: [id number] Name: FIONA GRUBER Rep #:[id number] : 1940 84 From: Brice Avila DO PCP: Dr. Ashley Roberson MD Status:ADM I N Location: [place] [address] Reason for Visit Chief Complaint: Right wrist pain and swelling with redness Subjective Subjective Patient was seen and examined today, talked with orthopedic surgery and they aregoing to reevaluate her tomorrow for possible washout of her right wrist, it maynot happen if the area looks better. Patient's PCR came back negative for staph, I have elected at this time to have her remain on Rocephin and vancomycin. Patient's white count has improved today. I talked to the who was in the room at the time of my examination. Objective Data Objective Data Vital Signs: Vital Signs Temp Pulse Resp BP Pulse Ox O2 Del Method 98.5 F 99 16 128/65 H 98 Room Air 01/25/25 14:22 01/25/25 14:22 01/25/25 14:22 01/25/25 14:22 01/25/25 14:22 01/25/25 14:22 Oxygen Delivery Method Room Air Weight: 55.973 kg Body Mass Index (BMI) 20.5 Intake & Output: Intake and Output for Last 24 Hours 01/23/25 01/24/25 01/25/25 23:59 23:59 23:59 Intake Total 315 / 315 615.25 / 615.25 Balance 315 / 315 615.25 / 615.25 Lab / Micro Data 01/25/25 03:27 01/25/25 03:27 Labs: Laboratory Results - last 24 hr 01/25/25 03:27: WBC 12.2 H, RBC 3.98 L, Hgb 11.2 L, Hct 34.3 L, MCV 86.2, MCH 28.1, MCHC 32.7, RDW Std Deviation 45.6 H, RDW Coeff of Vidal 14.5, Plt Count 173,MPV 11.9, Immature Gran % (Auto) 0.300, Neut % (Auto) 76.2 H, Lymph % (Auto) 10.5 L, [place] % (Auto) 12.7 H, Eos % (Auto) 0.1, Baso % (Auto) 0.2, Absolute Neuts (auto) 9.3 H, Absolute Lymphs (auto) 1.28, Nucleated RBC % 0, DifferentialComment SCANNED, Sodium 138, Potassium 3.6, Chloride 105, Carbon Dioxide 21.3, Anion Gap 12, BUN 14, Creatinine 0.62 L, Estim Creat Clear Calc 46.26 L, Est GFR(MDRD) Non-Af 88, BUN/Creatinine Ratio 21.8 H, Glucose 105 H, Calcium 8.7, TSH 2.050 Micro: Microbiology 01/24/25 12:50 Fluid - Synovial (joint) Gram Stain - Final 01/24/25 12:50 Fluid - Synovial (joint) Body Fluid Culture - Preliminary No growth-Final to follow 01/24/25 15:35 Wound - Wrist Skin and Soft Tissue MRSA/MSSA (PCR - Final Physical Exam Narrative Constitutional Narrative: Patient is alert but confused, she appears comfortable at this time, patient appears somewhat cachectic General Appearance: cooperative, well kempt and well developed Orientation / Consciousness: awake and confused HEENT normocephalic, head/scalp atraumatic, hearing grossly normal bilaterally and moist oral mucous membranes Eyes PERRL, EOMs intact bilaterally and conjunctivae normal Neck supple, no JVD, thyroid normal and no carotid bruits General: trachea midline Resp normal respiratory effort, no retractions, no use of accessory muscles and clearto auscultation bilaterally Auscultation: Negative for rales, rhonchi or wheezes Cardio regular rate, regular rhythm, S1 normal heart sound, S2 normal heart sound, no murmurs, no rub and no gallops GI normal to inspection, nondistended, normoactive bowel sounds, soft to palpation,non-tender and non-distended Extremity Extremity Narrative: There is a significant amount of edema in the right wrist along with redness andtenderness to palpation Skin Skin Narrative: Right wrist is reddened and swollen General Skin Exam: no breakdown Neuro CN's II-XII intact bilaterally, no focal motor deficits and no sensory deficits noted Neuro Narrative: Patient is confused Sensorium / Orientation: awake and alert Psych Psych Narrative: Patient is confused Assessment & Plan Assessment/Plan (1) Septic arthritis of right wrist: QUALIFIERS: Septic arthritis organism: due to unspecified organism Qualified Code(s): M00.9 - Pyogenic arthritis, unspecified PLAN: Plan 1. Septic arthritis of the right wrist-patient will continue on Rocephin and vancomycin, repeat CBC and BMP tomorrow #2 hypothyroidism-patient is on Synthroid #3 dementia-complicates care, management, recovery, and prognosis Total clinical time spent by myself addressing patient's medical issues, reviewing all of her data, and collaborating with patient's care team: 35 minutes Charges/Coding Visit Charges Inpatient E&M: 66677 Subs Hosp L2 01/25/25 1702 <Electronically signed by Brice Avila DO> Cosigner Signature (if applicable): CC: ~ Signed [facility] Work Phone: 1(590) 745-238010-19-2025 Progress note [facility] Medical Records Department [address] [place] [address] Progress Note - Hospitalist 01/25/25 1659 MR#: [id number] Acct: [id number] Name: FIONA GRUBER Rep #:[id number] : 1940 84 From: Brice Avila DO PCP: Dr. Ashley Roberson MD Status:ADM I N Location: [place] AJ[facility]-4 Reason for Visit Chief Complaint: Right wrist pain and swelling with redness Subjective Subjective Patient was seen and examined today, talked with orthopedic surgery and they aregoing to reevaluateher tomorrow for possible washout of her right wrist, it maynot happen if the area looks better. Patient's PCR came back negative for staph, I have elected at this time to have her remain on Rocephinand vancomycin. Patient's white count has improved today. I talked to the who was in the room at the time of my examination. Objective Data Objective Data Vital Signs: Vital Signs Temp Pulse Resp BP Pulse Ox O2 Del Method 98.5 F 99 16 128/65 H 98 Room Air 01/25/25 14:22 01/25/25 14:22 01/25/25 14:22 01/25/25 14:22 01/25/25 14:22 01/25/25 14:22 Oxygen Delivery Method Room Air Weight: 55.973 kg Body Mass Index (BMI) 20.5 Intake & Output: Intake and Output for Last 24 Hours 01/23/25 01/24/25 01/25/25 23:59 23:59 23:59 Intake Total 315 / 315 615.25 / 615.25 Balance 315 / 315 615.25 / 615.25 Lab / Micro Data 01/25/25 03:27 01/25/25 03:27 Labs: Laboratory Results - last 24 hr 01/25/25 03:27: WBC 12.2 H, RBC 3.98 L, Hgb 11.2 L, Hct 34.3 L, MCV 86.2, MCH 28.1, MCHC 32.7, RDW Std Deviation 45.6 H, RDW Coeff of Vidal 14.5, Plt Count 173,MPV 11.9, Immature Gran % (Auto) 0.300, Neut % (Auto) 76.2 H, Lymph % (Auto) 10.5 L, [place] % (Auto) 12.7 H, Eos % (Auto) 0.1, Baso % (Auto) 0.2, Absolute Neuts (auto) 9.3 H, Absolute Lymphs (auto) 1.28, Nucleated RBC % 0, DifferentialComment SCANNED, Sodium 138, Potassium 3.6, Chloride 105, Carbon Dioxide 21.3, Anion Gap 12, BUN 14, Creatinine 0.62 L, Estim Creat Clear Calc 46.26 L, Est GFR(MDRD) Non-Af 88, BUN/Creatinine Ratio 21.8 H, Glucose 105 H, Calcium 8.7, TSH 2.050 Micro: Microbiology 01/24/25 12:50 Fluid - Synovial (joint) Gram Stain - Final 01/24/25 12:50 Fluid - Synovial (joint) Body Fluid Culture - Preliminary No growth-Final to follow 01/24/25 15:35 Wound - Wrist Skin and Soft Tissue MRSA/MSSA (PCR - Final Physical Exam Narrative Constitutional Narrative: Patient is alert but confused, she appears comfortable at this time, patient appears somewhat cachectic General Appearance: cooperative, well kempt and well developed Orientation / Consciousness: awake and confused HEENT normocephalic, head/scalp atraumatic, hearing grossly normal bilaterally and moist oral mucous membranes Eyes PERRL, EOMs intact bilaterally and conjunctivae normal Neck supple, no JVD, thyroid normal and no carotid bruits General: trachea midline Resp normal respiratory effort, no retractions, no use of accessory muscles and clearto auscultation bilaterally Auscultation: Negative for rales, rhonchi or wheezes Cardio regular rate, regular rhythm, S1 normal heart sound, S2 normal heart sound, no murmurs, no rub and no gallops GI normal to inspection, nondistended, normoactive bowel sounds, soft to palpation,non-tender and non-distended Extremity Extremity Narrative: There is a significant amount of edema in the right wrist along with redness andtenderness to palpation Skin Skin Narrative: Right wrist is reddened and swollen General Skin Exam: no breakdown Neuro CN's II-XII intact bilaterally, no focal motor deficits and no sensory deficits noted Neuro Narrative: Patient is confused Sensorium / Orientation: awake and alert Psych Psych Narrative: Patient is confused Assessment & Plan Assessment/Plan (1) Septic arthritis of right wrist: QUALIFIERS: Septic arthritis organism: due to unspecified organism Qualified Code(s): M00.9 - Pyogenic arthritis, unspecified PLAN: Plan 1. Septic arthritis of the right wrist-patient will continue on Rocephin and vancomycin, repeat CBCand BMP tomorrow #2 hypothyroidism-patient is on Synthroid #3 dementia-complicates care, management, recovery, and prognosis Total clinical time spent by myself addressing patient's medical issues, reviewing all of her data,and collaborating with patient's care team: 35 minutes Charges/Coding Visit Charges Inpatient E&M: 82545 Subs Hosp L2 01/25/25 1702 Cosigner Signature (if applicable): CC: ~ Signed [facility]10-19-2025 Consult note Author Lico Chance [facility] Note Date/Time January 25, 2025 9 :49am [facility] Medical Records Department [address] [place] [address] Consultation - Orthopedics 01/25/25 0840 MR#: [id number] Acct: [id number] Name: FIONA GRUBER Rep #:[id number] : 1940 84 From: Lico leach DO PCP: Dr. Ashley Roberson MD Status:ADM I N Location: [place] [address]-1 HPI Consult Data Date of Consult: 01/25/25 HPI Narrative Reason for Consultation: Concern for right wrist septic arthritis HPI Narrative: FIONA GRUBER, is a 84 F who presented to [facility] emergency department 01/24/2025 with 1 day of right wrist pain and redness, swelling. Denies any injury predating the symptoms other than a nevus on the dorsal wrist that patient tends to pick at. Past medical history significant for CKD, osteopenia, dementia. Patient was seen in the emergency department by the ED physician and an arthrocentesis was performed. I saw patient in the emergency department yesterday and recommended admission with IV antibiotics and elevationof the right hand with possible surgery today. I evaluated the patient again this morning. Pain is improved and not present at rest. Her range of motion isslightly improving. She denies any fevers, chills, nausea vomiting, chest pain or shortness of breath. [facility] Medical History Hyperparathyroidism HTN (hypertension) Hypercalcemia Hearing disorder History of back problems Arthritis Allergies Osteoporosis Home Medications ?Medication ?Instructions ?Recorded ?Last Taken ?Type levothyroxine 25 mcg tablet 25 mcg PO DAILY #1 TAB 12/28 Unknown Rx alendronate 70 mg/75 mL oral 70 mg PO QWEEK 03/14/21 U nknown History solution escitalopram oxalate 10 mg tablet 10 mg PO DAILY DEPRE SSION 01/25/25 Unknown History rosuvastatin 10 mg tablet 10 mg PO QHS CHOLESTEROL Unknown History Allergy/AdvReac Type Severity Reaction Status Date / Time amoxicillin Allergy Unknown Verified 01/24/25 09:15 Penicillins (PCN) Allergy Unknown Verified 01/24/25 09:15 Family History Other Asthma Social History Smoking Status: Never smoker alcohol intake: never substance use type: does not use ROS ROS Narrative 12 point review systems obtained, negative unless otherwise noted in HPI. Vital Signs Vital Signs Vital Signs: 01/24/25 09:12 01/24/25 13:12 01/24/25 16:15 Temperature 98.4 F 98.5 F Temperature Source Oral Pulse Rate 104 H 90 98 Pulse Strength Respiratory Rate 14 18 18 Respiratory Effort Respiratory Depth Respiratory Pattern Blood Pressure 130/76 H 153/80 H 141/77 H Blood Pressure Mean 94 104 98 Blood Pressure Source Blood Pressure Position Blood Pressure Location Pulse Ox 95 95 99 Oxygen Delivery Method Room Air Room Air 01/24/25 16:17 01/24/25 17:21 01/24/25 17:46 Temperature 98.5 F 98.3 F Temperature Source Oral Oral Pulse Rate 95 100 Pulse Strength Respiratory Rate 18 16 Respiratory Effort Normal Non-Labored Respiratory Depth Normal Respiratory Pattern Normal Blood Pressure 141/77 H 159/79 H Blood Pressure Mean 98 105 Blood Pressure Source Monitor Blood Pressure Position Semi-Fowlers Blood Pressure Location Left Arm Pulse Ox 99 95 Oxygen Delivery Method Room Air Room Air Room Air 01/24/25 19:59 01/24/25 20:05 01/25/25 02:05 Temperature 98.1 F 98.5 F Temperature Source Oral Oral Pulse Rate 93 86 Pulse Strength Respiratory Rate 16 16 Respiratory Effort Normal Non-Labored Respiratory Depth Normal Respiratory Pattern Normal Blood Pressure 124/61 H 116/69 Blood Pressure Mean 82 84 Blood Pressure Source Monitor Monitor Blood Pressure Position Semi-Fowlers Semi-Fowlers Blood Pressure Location Left Arm Left Arm Pulse Ox 95 96 Oxygen Delivery Method Room Air Room Air Room Air 01/25/25 08:34 Temperature Temperature Source Pulse Rate Pulse Strength Normal (2+) Respiratory Rate Respiratory Effort Respiratory Depth Respiratory Pattern Blood Pressure Blood Pressure Mean Blood Pressure Source Blood Pressure Position Blood Pressure Location Pulse Ox Oxygen Delivery Method Weight Weight: 123 lb 6.4 oz Body Mass Index (BMI) 20.5 Physical Exam Narrative General -A&Ox3, NAD, appears stated age. Vital signs stable, afebrile. Respiratory -normal work of breathing, no intercostal retractions. CV -pulses regular, brisk capillary refill ?4 limbs. Abdomen-soft, nontender, nondistended. No guarding, rigidity, rebound tenderness. Musculoskeletal/neurologic -full range of motion and nontender left upper extremity bilateral lower extremities. Right upper extremity: Edema and noted right wrist slightly improved. No significant swelling in the hand. Cardinal motions of the hand are intact. Short arc range of motion pain is present in the right wrist, slightly improved from yesterday. Fluctuance within the wrist. No pain with short arc flexor or extensor tendon excursion. Brisk capillary refill in the digits. Small nevus noted dorsal wrist without subcutaneous purulence. Faint erythema noted right wrist without lymphangitis. Lab / Micro Data 01/25/25 03:27 01/25/25 03:27 Labs: Laboratory Results - last 24 hr 01/24/25 09:50: WBC 14.4 H, RBC 4.22, Hgb 12.1, Hct 36.3 L, MCV 86.0, MCH 28.7, MCHC 33.3, RDW Std Deviation 45.1 H, RDW Coeff of Vidal 14.4, Plt Count 180, MPV 11.5, Immature Gran % (Auto) 0.400, Neut % (Auto) 81.8 H, Lymph % (Auto) 6.7 L, [place] % (Auto) 10.9 H, Eos % (Auto) 0.1, Baso % (Auto) 0.1, Absolute Neuts (auto)11.8 H, Absolute Lymphs (auto) 0.96, Nucleated RBC % 0, Differential Comment SCANNED, ESR 61 H, Sodium 138, Potassium 4.0, Chloride 103, Carbon Dioxide 21.9,Anion Gap 13, BUN 14, Creatinine 0.77, Estim Creat Clear Calc 46.26 L, Est GFR (MDRD) Non-Af 76, BUN/Creatinine Ratio 18.1, Glucose 139 H, Lactic Acid < 1.0, Uric Acid 4.2, Calcium 9.1, C-React Prot Ext Range 86.90 H 01/24/25 12:22: Urine Color Yellow, Urine Clarity Clear, Urine pH 6.0, Ur Specific [place] 1.025, Urine Protein 30 H, Urine Glucose (UA) Normal, Urine Ketones 150 A*, Urine Occult Blood 250 H, Urine Nitrite Negative, Urine Bilirubin Negative, Urine Urobilinogen Normal, Ur Leukocyte Esterase Negative, Urine RBC 5-10 SEEN, Urine WBC 0-5 SEEN, Ur Squamous Epith Cells 0-5 SEEN, UrineBacteria 1+, Urine Mucus 0 SEEN 01/24/25 12:50: Fluid Source Cancelled, Fluid Color Cancelled, Fluid Appearance Cancelled, Fluid WBC Cancelled, Fluid RBC Cancelled, Fluid Tot Cell Count Cancelled, Fld Polynuclear WBCs # Cancelled, Fld Polynuclear WBCs % Cancelled, Fluid Mononuclear WBCs Cancelled, Fld Mononuclear WBCs % Cancelled, Fluid Neutrophils Cancelled, Fluid Lymphocytes Cancelled, Fluid Monocytes Cancelled, Fluid Plasma Cells Cancelled, Fluid Macrophages Cancelled, Fld Mesothelial CellsCancelled, Fluid Other Cells Cancelled, Fluid Crystals NO CRYSTALS SEEN, Fluid Crystal Source SYNOVIAL, Fl Pathologist Comment Cancelled, Fluid Comment 2 Cancelled, Synovial Source RIGHT WRIST, Synovial Color Red, Synovial Appearance Cloudy, Synovial WBC 42.9700 H, Synovial RBC 0.657 H, Synovial Tot Cell Ct 43.0700 H, Synov Polynuclear WBCs 35.746, Synov Mononuclear WBCs 6.092, SynovialNeutrophils 90 H, Synovial Lymphocytes 1, Synovial Monocytes 9, Synovial Polynuclear % 85.4, Synovial Mononuclear % 14.6, Synovial Path Comment May follow 01/24/25 15:35: MRSA (PCR) Cancelled 01/25/25 03:27: WBC 12.2 H, RBC 3.98 L, Hgb 11.2 L, Hct 34.3 L, MCV 86.2, MCH 28.1, MCHC 32.7, RDW Std Deviation 45.6 H, RDW Coeff of Vidal 14.5, Plt Count 173,MPV 11.9, Immature Gran % (Auto) 0.300, Neut % (Auto) 76.2 H, Lymph % (Auto) 10.5 L, [place] % (Auto) 12.7 H, Eos % (Auto) 0.1, Baso % (Auto) 0.2, Absolute Neuts (auto) 9.3 H, Absolute Lymphs (auto) 1.28, Nucleated RBC % 0, DifferentialComment SCANNED, Sodium 138, Potassium 3.6, Chloride 105, Carbon Dioxide 21.3, Anion Gap 12, BUN 14, Creatinine 0.62 L, Estim Creat Clear Calc 46.26 L, Est GFR(MDRD) Non-Af 88, BUN/Creatinine Ratio 21.8 H, Glucose 105 H, Calcium 8.7, TSH 2.050 Micro: Microbiology 01/24/25 15:35 Wound - Wrist Skin and Soft Tissue MRSA/MSSA (PCR - Final 01/24/25 12:50 Fluid - Synovial (joint) Gram Stain - Final Imaging Radiology Impression Wrist X-Ray 01/24/25 09:45 IMPRESSION: 1. Soft tissue swelling. 2. Possible widening of the scapholunate joint space could be projection or ligamentous injury. Correlation with point tenderness is recommended. Reading Location: [id number] Brain CT 01/24/25 11:16 IMPRESSION: No acute intracranial abnormalities. Reading Location: [id number] Assessment & Plan Assessment/Plan (1) Septic arthritis of right wrist: QUALIFIERS: Septic arthritis organism: due to unspecified organism Qualified Code(s): M00.9 - Pyogenic arthritis, unspecified PLAN: Patient seen and examined. Symptoms appear slightly improved today. White count is trending down. I do suspect septic arthritis. I discussed with patient and the gold standard for septic arthritis treatment is a surgical I&D with IV antibiotics. We also discussed nonsurgical they wish to avoid surgery if at all possible. With her improvement over the last 24 hours or so, I find it reasonable to nonsurgical treatment for at least another 24 hours with repeat aspiration at bedside today antibiotics. Procedure note: Informed consent was obtained for a right wrist arthrocentesis by patient and verbally. Dorsal wrist was prepped with ChloraPrep. Soft spot 1 cm distal to Eleazar's tubercle was palpated dorsally and a 21-gauge needle was passed through skin and subcutaneous tissue into the wrist joint. No fluid was aspirated. I injected 3 cc of normal saline and aspirated the fluid back. There is minimal cloudiness of the return of fluid noted in the syringe. Needlewas then withdrawn. Compressive dressing was applied. A compression stockinette was applied to the right hand and wrist. Hand was elevated above the heart level on 2 pillows. Patient tolerated the procedure well without complication. Recommended continued IV antibiotics. Follow cultures. Strict elevation right hand. Okay for diet today with n.p.o. after midnight tonight. I will reassess the patient tomorrow morning for possible I&D tomorrow. Possible repeat aspiration tomorrow also considered. 01/25/25 0849 <Electronically signed by Lico Chance DO> Cosigner Signature (if applicable): CC: Dr. Ashley Roberson MD~ Signed [facility] Work Phone: 1(214) 759-412910-19-2025 Consult note [facility] Medical Records Department [address] [place] [address] Consultation - Orthopedics 01/25/25 0840 MR#: [id number] Acct: [id number] Name: FIONA GRUBER Rep #:[id number] : 1940 84 From: Lico leach DO PCP: Dr. Ashley Roberson MD Status:ADM I N Location: [place] [address] HPI Consult Data Date of Consult: 01/25/25 HPI Narrative Reason for Consultation: Concern for right wrist septic arthritis HPI Narrative: FIONA GRUBER, is a 84 F who presented to [facility] emergency department 01/24/2025 with 1 day of right wrist pain and redness, swelling. Denies any injury predating the symptoms otherthan a nevus on the dorsal wrist that patient tends to pick at. Past medical history significant for CKD, osteopenia, dementia. Patient was seen in the emergency department by the ED physician and anarthrocentesis was performed. I saw patient in the emergency department yesterday and recommended admission with IV antibiotics and elevationof the right hand with possible surgery today. I evaluatedthe patient again this morning. Pain is improved and not present at rest. Her range of motion isslightly improving. She denies any fevers, chills, nausea vomiting, chest pain or shortness of breath. [facility] Medical History Hyperparathyroidism HTN (hypertension) Hypercalcemia Hearing disorder History of back problems Arthritis Allergies Osteoporosis Home Medications ?Medication ?Instructions ?Recorded ?Last Taken ?Type levothyroxine 25 mcg tablet 25 mcg PO DAILY #1 TAB 12/28 Unknown Rx alendronate 70 mg/75 mL oral 70 mg PO QWEEK 03/14/21 U nknown History solution escitalopram oxalate 10 mg tablet 10 mg PO DAILY DEPRE SSION 01/25/25 Unknown History rosuvastatin 10 mg tablet 10 mg PO QHS CHOLESTEROL Unknown History Allergy/AdvReac Type Severity Reaction Status Date / Time amoxicillin Allergy Unknown Verified 01/24/25 09:15 Penicillins (PCN) Allergy Unknown Verified 01/24/25 09:15 Family History Other Asthma Social History Smoking Status: Never smoker alcohol intake: never substance use type: does not use ROS ROS Narrative 12 point review systems obtained, negative unless otherwise noted in HPI. Vital Signs Vital Signs Vital Signs: 01/24/25 09:12 01/24/25 13:12 01/24/25 16:15 Temperature 98.4 F 98.5 F Temperature Source Oral Pulse Rate 104 H 90 98 Pulse Strength Respiratory Rate 14 18 18 Respiratory Effort Respiratory Depth Respiratory Pattern Blood Pressure 130/76 H 153/80 H 141/77 H Blood Pressure Mean 94 104 98 Blood Pressure Source Blood Pressure Position Blood Pressure Location Pulse Ox 95 95 99 Oxygen Delivery Method Room Air Room Air 01/24/25 16:17 01/24/25 17:21 01/24/25 17:46 Temperature 98.5 F 98.3 F Temperature Source Oral Oral Pulse Rate 95 100 Pulse Strength Respiratory Rate 18 16 Respiratory Effort Normal Non-Labored Respiratory Depth Normal Respiratory Pattern Normal Blood Pressure 141/77 H 159/79 H Blood Pressure Mean 98 105 Blood Pressure Source Monitor Blood Pressure Position Semi-Fowlers Blood Pressure Location Left Arm Pulse Ox 99 95 Oxygen Delivery Method Room Air Room Air Room Air 01/24/25 19:59 01/24/25 20:05 01/25/25 02:05 Temperature 98.1 F 98.5 F Temperature Source Oral Oral Pulse Rate 93 86 Pulse Strength Respiratory Rate 16 16 Respiratory Effort Normal Non-Labored Respiratory Depth Normal Respiratory Pattern Normal Blood Pressure 124/61 H 116/69 Blood Pressure Mean 82 84 Blood Pressure Source Monitor Monitor Blood Pressure Position Semi-Fowlers Semi-Fowlers Blood Pressure Location Left Arm Left Arm Pulse Ox 95 96 Oxygen Delivery Method Room Air Room Air Room Air 01/25/25 08:34 Temperature Temperature Source Pulse Rate Pulse Strength Normal (2+) Respiratory Rate Respiratory Effort Respiratory Depth Respiratory Pattern Blood Pressure Blood Pressure Mean Blood Pressure Source Blood Pressure Position Blood Pressure Location Pulse Ox Oxygen Delivery Method Weight Weight: 123 lb 6.4 oz Body Mass Index (BMI) 20.5 Physical Exam Narrative General -A&Ox3, NAD, appears stated age. Vital signs stable, afebrile. Respiratory -normal work of breathing, no intercostal retractions. CV -pulses regular, brisk capillary refill ?4 limbs. Abdomen-soft, nontender, nondistended. No guarding, rigidity, rebound tenderness. Musculoskeletal/neurologic -full range of motion and nontender left upper extremity bilateral lowerextremities. Right upper extremity: Edema and noted right wrist slightly improved. No significant swelling in the hand. Cardinal motions of the hand are intact. Short arc range of motion pain is present in the right wrist, slightly improved from yesterday. Fluctuance within the wrist. No pain with short arc flexor or extensor tendon excursion. Brisk capillary refill in the digits. Small nevus noted dorsal wrist without subcutaneous purulence. Faint erythema noted right wrist without lymphangitis. Lab / Micro Data 01/25/25 03:27 01/25/25 03:27 Labs: Laboratory Results - last 24 hr 01/24/25 09:50: WBC 14.4 H, RBC 4.22, Hgb 12.1, Hct 36.3 L, MCV 86.0, MCH 28.7, MCHC 33.3, RDW Std Deviation 45.1 H, RDW Coeff of Vidal 14.4, Plt Count 180, MPV 11.5, Immature Gran % (Auto) 0.400, Neut% (Auto) 81.8 H, Lymph % (Auto) 6.7 L, [place] % (Auto) 10.9 H, Eos % (Auto) 0.1, Baso % (Auto) 0.1, Absolute Neuts (auto)11.8 H, Absolute Lymphs (auto) 0.96, Nucleated RBC % 0, Differential Comment SCANNED, ESR 61 H, Sodium 138, Potassium 4.0, Chloride 103, Carbon Dioxide 21.9,Anion Gap 13, BUN 14, Creatinine 0.77, Estim Creat Clear Calc 46.26 L, Est GFR (MDRD) Non-Af 76, BUN/Creatinine Ratio 18.1,Glucose 139 H, Lactic Acid < 1.0, Uric Acid 4.2, Calcium 9.1, C-React Prot Ext Range 86.90 H 01/24/25 12:22: Urine Color Yellow, Urine Clarity Clear, Urine pH 6.0, Ur Specific Park 1.025, Urine Protein 30 H, Urine Glucose (UA) Normal, Urine Ketones 150 A*, Urine Occult Blood 250 H, Urine Nitrite Negative, Urine Bilirubin Negative, Urine Urobilinogen Normal, Ur Leukocyte Esterase Negative, Urine RBC 5-10 SEEN, Urine WBC 0-5 SEEN, Ur Squamous Epith Cells 0-5 SEEN, UrineBacteria 1+, Urine Mucus 0 SEEN 01/24/25 12:50: Fluid Source Cancelled, Fluid Color Cancelled, Fluid Appearance Cancelled, Fluid WBC Cancelled, Fluid RBC Cancelled, Fluid Tot Cell Count Cancelled, Fld Polynuclear WBCs # Cancelled, Fld Polynuclear WBCs % Cancelled, Fluid Mononuclear WBCs Cancelled, Fld Mononuclear WBCs % Cancelled, Fluid Neutrophils Cancelled, Fluid Lymphocytes Cancelled, Fluid Monocytes Cancelled, Fluid Plasma Cells Cancelled, Fluid Macrophages Cancelled, Fld Mesothelial CellsCancelled, Fluid Other Cells Cancelled, Fluid Crystals NO CRYSTALS SEEN, Fluid Crystal Source SYNOVIAL, Fl Pathologist Comment Cancelled, Fluid Comment 2 Cancelled, Synovial Source RIGHT WRIST, Synovial Color Red, Synovial Appearance Cloudy, Synovial WBC 42.9700 H, Synovial RBC 0.657 H, Synovial Tot Cell Ct 43.0700 H, Synov Polynuclear WBCs 35.746, Synov Mononuclear WBCs 6.092, SynovialNeutrophils 90 H, Synovial Lymphocytes 1, Synovial Monocytes 9, Synovial Polynuclear % 85.4, Synovial Mononuclear % 14.6, Synovial Path Comment May follow 01/24/25 15:35: MRSA (PCR) Cancelled 01/25/25 03:27: WBC 12.2 H, RBC 3.98 L, Hgb 11.2 L, Hct 34.3 L, MCV 86.2, MCH 28.1, MCHC 32.7, RDW Std Deviation 45.6 H, RDW Coeff of Vidal 14.5, Plt Count 173,MPV 11.9, Immature Gran % (Auto) 0.300, Neut % (Auto) 76.2 H, Lymph % (Auto) 10.5 L, [place] % (Auto) 12.7 H, Eos % (Auto) 0.1, Baso % (Auto) 0.2, Absolute Neuts (auto) 9.3 H, Absolute Lymphs (auto) 1.28, Nucleated RBC % 0, DifferentialComment SCANNED, Sodium 138, Potassium 3.6, Chloride 105, Carbon Dioxide 21.3, Anion Gap 12, BUN 14, Creatinine 0.62 L, Estim Creat Clear Calc 46.26 L, Est GFR(MDRD) Non-Af 88, BUN/Creatinine Ratio 21.8 H, Glucose 105 H, Calcium 8.7, TSH 2.050 Micro: Microbiology 01/24/25 15:35 Wound - Wrist Skin and Soft Tissue MRSA/MSSA (PCR - Final 01/24/25 12:50 Fluid - Synovial (joint) Gram Stain - Final Imaging Radiology Impression Wrist X-Ray 01/24/25 09:45 IMPRESSION: 1. Soft tissue swelling. 2. Possible widening of the scapholunate joint space could be projection or ligamentous injury. Correlation with point tenderness is recommended. Reading Location: [id number] Brain CT 01/24/25 11:16 IMPRESSION: No acute intracranial abnormalities. Reading Location: [id number] Assessment & Plan Assessment/Plan (1) Septic arthritis of right wrist: QUALIFIERS: Septic arthritis organism: due to unspecified organism Qualified Code(s): M00.9 - Pyogenic arthritis, unspecified PLAN: Patient seen and examined. Symptoms appear slightly improved today. White count is trending down. I do suspect septic arthritis. I discussed with patient and the gold standard for septic arthritis treatment is a surgical I&D with IV antibiotics. We also discussed nonsurgical they wish to avoid surgery if at all possible. With her improvement over the last 24 hours or so, I find it reasonable to nonsurgical treatment for at least another 24 hours with repeat aspiration at bedside today antibiotics. Procedure note: Informed consent was obtained for a right wrist arthrocentesis by patient and verbally. Dorsal wrist was prepped with ChloraPrep. Soft spot 1 cm distal to Eleazar's tubercle was palpated dorsally and a 21-gauge needle was passed through skin and subcutaneous tissue into the wrist joint. No fluid was aspirated. I injected 3 cc of normal saline and aspirated the fluid back. There is minimal cloudiness of the return of fluid noted in the syringe. Needlewas then withdrawn. Compressive dressing was applied. A compression stockinette was applied to the right hand and wrist. Hand was elevatedabove the heart level on 2 pillows. Patient tolerated the procedure well without complication. Recommended continued IV antibiotics. Follow cultures. Strict elevation right hand. Okay for diet today with n.p.o. after midnight tonight. I will reassess the patient tomorrow morning for possible I&D tomorrow. Possible repeat aspiration tomorrow also considered. 01/25/25 0849 Cosigner Signature (if applicable): CC: Dr. Ashley Roberson MD~ Signed [facility]10-18-2025 History and physical note Author [facility] Note Date/Time January 24, 2025 8 :16pm [facility] Medical Records Department [address] [place] [address] H&P Exam - Hospitalist 01/24/25 190 MR#: [id number] Acct: [id number] Name: FIONA GRUBER Rep #:[id number] : 1940 84 From: Brice Avila DO PCP: Dr. Ashley Roberson MD Status:ADM I N Location: [place] [address] HPI - General General Date of Admission: 01/24/25 Date of Service: 01/24/25 Chief Complaint: Right wrist pain and swelling with redness HPI Narrative FIONA GRUBER, is a 84 F who presents to the emergency room at [facility] with complaints of right wrist swelling, pain, and redness. The is providing medical history as the patient has dementia and is not ableto provide any information. It is unknown whether the patient had an injury to the wrist, she had been picking at skin on a mole on her wrist recently according to the . Workup in the emergency room included x-rays of the right wrist which shows softtissue swelling and possible widening of the joint space which could be due to projection or ligamentous injury. White blood cell count was 14.4, chemistry profile was unremarkable. Arthrocentesis of the right wrist was performed in the emergency room and 1 cc of bloody fluid was obtained for testing. I asked that a PCR be sent to rule out staph. The case was discussed with Dr. Chance who came to the ER to evaluate the patient, he advised admitting the patient for IV antibiotic treatment and possible washout of the right wrist tomorrow. Patient will be admitted to [facility] 3, I discussed CODE STATUS with the patient's -she jorge DNR CC arrest no intubation. [facility] Medical History Hyperparathyroidism HTN (hypertension) Hypercalcemia Hearing disorder History of back problems Arthritis Allergies Osteoporosis Home Medications ?Medication ?Instructions ?Recorded ?Last Taken ?Type magnesium 30 mg tablet 1,000 mg PO DAILY 12/23/19 U nknown History levothyroxine 25 mcg tablet 25 mcg PO DAILY #1 TAB 12/28 Unknown Rx alendronate 70 mg/75 mL oral 70 mg PO QWEEK 03/14/21 U nknown History solution Allergy/AdvReac Type Severity Reaction Status Date / Time amoxicillin Allergy Unknown Verified 01/24/25 09:15 Penicillins (PCN) Allergy Unknown Verified 01/24/25 09:15 Family History Other Asthma Social History Smoking Status: Never smoker alcohol intake: never substance use type: does not use ROS ROS Narrative Review of systems was unobtainable due to patient's dementia Vital Signs Vital Signs Vital Signs: 01/24/25 09:12 01/24/25 13:12 01/24/25 16:15 Temperature 98.4 F 98.5 F Temperature Source Oral Pulse Rate 104 H 90 98 Respiratory Rate 14 18 18 Respiratory Effort Respiratory Depth Respiratory Pattern Blood Pressure 130/76 H 153/80 H 141/77 H Blood Pressure Mean 94 104 98 Blood Pressure Source Blood Pressure Position Blood Pressure Location Pulse Ox 95 95 99 Oxygen Delivery Method Room Air Room Air 01/24/25 16:17 01/24/25 17:21 01/24/25 17:46 Temperature 98.5 F 98.3 F Temperature Source Oral Oral Pulse Rate 95 100 Respiratory Rate 18 16 Respiratory Effort Normal Non-Labored Respiratory Depth Normal Respiratory Pattern Normal Blood Pressure 141/77 H 159/79 H Blood Pressure Mean 98 105 Blood Pressure Source Monitor Blood Pressure Position Semi-Fowlers Blood Pressure Location Left Arm Pulse Ox 99 95 Oxygen Delivery Method Room Air Room Air Room Air Weight Weight: 55.973 kg Body Mass Index (BMI) 20.5 Physical Exam Const alert Constitutional Narrative: Patient is alert but confused, she appears comfortable at this time, patient appears somewhat cachectic General Appearance: cooperative, well kempt and well developed Orientation / Consciousness: awake and confused HEENT normocephalic, head/scalp atraumatic, hearing grossly normal bilaterally and moist oral mucous membranes Eyes PERRL, EOMs intact bilaterally and conjunctivae normal Neck supple, no JVD, thyroid normal and no carotid bruits General: trachea midline Resp normal respiratory effort, no retractions, no use of accessory muscles and clearto auscultation bilaterally Auscultation: Negative for rales, rhonchi or wheezes Cardio regular rate, regular rhythm, S1 normal heart sound, S2 normal heart sound, no murmurs, no rub and no gallops GI normal to inspection, nondistended, normoactive bowel sounds, soft to palpation,non-tender and non-distended Extremity Extremity Narrative: There is a significant amount of edema in the right wrist along with redness andtenderness to palpation Skin Skin Narrative: Right wrist is reddened and swollen General Skin Exam: no breakdown Neuro CN's II-XII intact bilaterally, no focal motor deficits and no sensory deficits noted Neuro Narrative: Patient is confused Sensorium / Orientation: awake and alert Psych Psych Narrative: Patient is confused Results Lab / Micro Data 01/24/25 09:50 01/24/25 09:50 Labs: Laboratory Results - last 24 hr 01/24/25 09:50: WBC 14.4 H, RBC 4.22, Hgb 12.1, Hct 36.3 L, MCV 86.0, MCH 28.7, MCHC 33.3, RDW Std Deviation 45.1 H, RDW Coeff of Vidal 14.4, Plt Count 180, MPV 11.5, Immature Gran % (Auto) 0.400, Neut % (Auto) 81.8 H, Lymph % (Auto) 6.7 L, [place] % (Auto) 10.9 H, Eos % (Auto) 0.1, Baso % (Auto) 0.1, Absolute Neuts (auto)11.8 H, Absolute Lymphs (auto) 0.96, Nucleated RBC % 0, Differential Comment SCANNED, ESR 61 H, Sodium 138, Potassium 4.0, Chloride 103, Carbon Dioxide 21.9,Anion Gap 13, BUN 14, Creatinine 0.77, Estim Creat Clear Calc 46.26 L, Est GFR (MDRD) Non-Af 76, BUN/Creatinine Ratio 18.1, Glucose 139 H, Lactic Acid < 1.0, Uric Acid 4.2, Calcium 9.1, C-React Prot Ext Range 86.90 H 01/24/25 12:22: Urine Color Yellow, Urine Clarity Clear, Urine pH 6.0, Ur Specific [place] 1.025, Urine Protein 30 H, Urine Glucose (UA) Normal, Urine Ketones 150 A*, Urine Occult Blood 250 H, Urine Nitrite Negative, Urine Bilirubin Negative, Urine Urobilinogen Normal, Ur Leukocyte Esterase Negative, Urine RBC 5-10 SEEN, Urine WBC 0-5 SEEN, Ur Squamous Epith Cells 0-5 SEEN, UrineBacteria 1+, Urine Mucus 0 SEEN 01/24/25 12:50: Fluid Source Cancelled, Fluid Color Cancelled, Fluid Appearance Cancelled, Fluid WBC Cancelled, Fluid RBC Cancelled, Fluid Tot Cell Count Cancelled, Fld Polynuclear WBCs # Cancelled, Fld Polynuclear WBCs % Cancelled, Fluid Mononuclear WBCs Cancelled, Fld Mononuclear WBCs % Cancelled, Fluid Neutrophils Cancelled, Fluid Lymphocytes Cancelled, Fluid Monocytes Cancelled, Fluid Plasma Cells Cancelled, Fluid Macrophages Cancelled, Fld Mesothelial CellsCancelled, Fluid Other Cells Cancelled, Fluid Crystals NO CRYSTALS SEEN, Fluid Crystal Source SYNOVIAL, Fl Pathologist Comment Cancelled, Fluid Comment 2 Cancelled, Synovial Source RIGHT WRIST, Synovial Color Red, Synovial Appearance Cloudy, Synovial WBC 42.9700 H, Synovial RBC 0.657 H, Synovial Tot Cell Ct 43.0700 H, Synov Polynuclear WBCs 35.746, Synov Mononuclear WBCs 6.092, SynovialNeutrophils 90 H, Synovial Lymphocytes 1, Synovial Monocytes 9, Synovial Polynuclear % 85.4, Synovial Mononuclear % 14.6, Synovial Path Comment May follow 01/24/25 15:35: MRSA (PCR) Cancelled Micro: Microbiology 01/24/25 15:35 Wound - Wrist Skin and Soft Tissue MRSA/MSSA (PCR - Final 01/24/25 12:50 Fluid - Synovial (joint) Gram Stain - Final Imaging Radiology Impression Wrist X-Ray 01/24/25 09:45 IMPRESSION: 1. Soft tissue swelling. 2. Possible widening of the scapholunate joint space could be projection or ligamentous injury. Correlation with point tenderness is recommended. Reading Location: [id number] Brain CT 01/24/25 11:16 IMPRESSION: No acute intracranial abnormalities. Reading Location: [id number] Assessment & Plan Assessment/Plan (1) Septic arthritis of right wrist: Procedure Criteria Elective Risks - COVID COVID Risk Discussion: 1. Septic arthritis of the right wrist-patient will be admitted to [place] [address], she will be given IV vancomycin and Rocephin, cultures are pending, orthopedic surgery will be consulted for possible washout of the right wrist. #2 hypothyroidism-patient is on Synthroid #3 dementia-complicates care, management, recovery, and prognosis Total clinical time spent by myself addressing patient's medical issues, reviewing all her data, and collaborating with patient's care team: 55 minutes Charges/Coding Visit Charges Inpatient E&M: 73694 Init Hosp L2 01/24/251915 <Electronically signed by Brice Avila DO> Cosigner Signature (if applicable): CC: Dr. Ashley Roberson MD; Dr. Brice Avila DO~ Signed [facility] Work Phone: 1(681) 475-223310-18-2025 Consult note Author Lico Alanis [facility] Note Date/Time January 24, 2025 6 :34pm [facility] Medical Records Department [address] [place] [address] Pharmacokinetic/Renal -Consult 01/24/25 1733 MR#: [id number] Acct: [id number] Name: FIONA GRUBER Rep #:[id number] : 1940 84 From: Lico [facility] PCP: Dr. Ashley Roberson MD Status:ADM I N Y Location: [place] [address] Consult Antibiotic Management Pharmacy has been consulted to manage selected antibiotic: Vancomycin Type of Intervention Type of Consult: New start Suspected Infection Suspected Infection: Skin/Soft tissue Labs Labs: Sodium 138 mmol/L (133-145) 01/24/25 09:50 Potassium 4.0 mmol/L (3.3-5.1) 01/24/25 09:50 Chloride 103 mmol/L (98-108) 01/24/25 09:50 Carbon Dioxide 21.9 mmol/L (21.0-32.0) 01/24/25 09:50 Anion Gap 13 (5-15) 01/24/25 09:50 BUN 14 mg/dL (4-19) 01/24/25 09:50 Creatinine 0.77 mg/dL (0.70-1.20) 01/24/25 09:50 Est GFR (MDRD) Non-Af 76 (>60) 01/24/25 09:50 BUN/Creatinine Ratio 18.1 RATIO (10-20) 01/24/25 09:50 Glucose 139 mg/dL (70-99) H 01/24/25 09:50 Microbiology Microbiology: Microbiology 01/24/25 15:35 Wound - Wrist Skin and Soft Tissue MRSA/MSSA (PCR - Final 01/24/25 12:50 Fluid - Synovial (joint) Gram Stain - Final Goal Trough Goal Trough: 15-20 mcg/mL Pharmacy Plan for Drug Dosing Pharmacy Plan for Drug Dosing: NEW START IV VANCOMYCIN Consulting Physician: Dr. Avila Indication: Cellulitis Goal Trough: 15-20 SrCr: 0.77 CrCl: 46ml/min Comments: pt received a 750mg dose of Vancomycin in the ER on 01/24/25 at 1527 Vancomycin Dose: based on patients weight and renal function, recommend an initial dose of 500mg q12h starting 01/25/25 at 0330. Trough prior to the 4th total dose Pending Level: 01/26/25 at 0300 Pharmacy Service will continue to monitor and adjust dosing as required. Follow-Up Labs Follow-Up Labs: Trough: Vancomycin (01/26/25 at 0300) 01/24/25 1734 <Electronically signed by Lico Alcantara [facility]> Date _ Lico Olivares [facility] Signature (if applicable): Date CC: ~ Signed [facility] Work Phone: 1(262) 576-783310-18-2025 History and physical note [facility] Medical Records Department [address] [place] [address] H&P Exam - Hospitalist 01/24/25 190 MR#: [id number] Acct: [id number] Name: FIONA GRUBER Rep #:[id number] : 1940 84 From: Brice Avila DO PCP: Dr. Ashley Roberson MD Status:ADM I N Location: [facility] [id number] HPI - General General Date of Admission: 01/24/25 Date of Service: 01/24/25 Chief Complaint: Right wrist pain and swelling with redness HPI Narrative FIONA GRUBER, is a 84 F who presents to the emergency room at [facility] with complaints of right wrist swelling, pain, and redness. The is providing medical history as the patient has dementia and is not ableto provide any information. It is unknown whether the patient had an injury to the wrist, she had been picking at skin on a mole on her wrist recently according to thesband. Workup in the emergency room included x-rays of the right wrist which shows softtissue swelling andpossible widening of the joint space which could be due to projection or ligamentous injury. White blood cell count was 14.4, chemistry profile was unremarkable. Arthrocentesis of the right wrist was performed in the emergency room and 1 cc of bloody fluid was obtained for testing. I asked that a PCR be sent to rule out staph. The case was discussed with Dr. Chance who came to the ER to evaluate the patient, he advised admitting the patient for IV antibiotic treatment and possible washout of the right wrist tomorrow. Patient will be admitted to [facility] 3, I discussed CODE STATUS with the patient's -she jorge DNR CC arrest no intubation. [facility] Medical History Hyperparathyroidism HTN (hypertension) Hypercalcemia Hearing disorder History of back problems Arthritis Allergies Osteoporosis Home Medications ?Medication ?Instructions ?Recorded ?Last Taken ?Type magnesium 30 mg tablet 1,000 mg PO DAILY 12/23/19 U nknown History levothyroxine 25 mcg tablet 25 mcg PO DAILY #1 TAB 12/28 Unknown Rx alendronate 70 mg/75 mL oral 70 mg PO QWEEK 03/14/21 U nknown History solution Allergy/AdvReac Type Severity Reaction Status Date / Time amoxicillin Allergy Unknown Verified 01/24/25 09:15 Penicillins (PCN) Allergy Unknown Verified 01/24/25 09:15 Family History Other Asthma Social History Smoking Status: Never smoker alcohol intake: never substance use type: does not use ROS ROS Narrative Review of systems was unobtainable due to patient's dementia Vital Signs Vital Signs Vital Signs: 01/24/25 09:12 01/24/25 13:12 01/24/25 16:15 Temperature 98.4 F 98.5 F Temperature Source Oral Pulse Rate 104 H 90 98 Respiratory Rate 14 18 18 Respiratory Effort Respiratory Depth Respiratory Pattern Blood Pressure 130/76 H 153/80 H 141/77 H Blood Pressure Mean 94 104 98 Blood Pressure Source Blood Pressure Position Blood Pressure Location Pulse Ox 95 95 99 Oxygen Delivery Method Room Air Room Air 01/24/25 16:17 01/24/25 17:21 01/24/25 17:46 Temperature 98.5 F 98.3 F Temperature Source Oral Oral Pulse Rate 95 100 Respiratory Rate 18 16 Respiratory Effort Normal Non-Labored Respiratory Depth Normal Respiratory Pattern Normal Blood Pressure 141/77 H 159/79 H Blood Pressure Mean 98 105 Blood Pressure Source Monitor Blood Pressure Position Semi-Fowlers Blood Pressure Location Left Arm Pulse Ox 99 95 Oxygen Delivery Method Room Air Room Air Room Air Weight Weight: 55.973 kg Body Mass Index (BMI) 20.5 Physical Exam Const alert Constitutional Narrative: Patient is alert but confused, she appears comfortable at this time, patient appears somewhat cachectic General Appearance: cooperative, well kempt and well developed Orientation / Consciousness: awake and confused HEENT normocephalic, head/scalp atraumatic, hearing grossly normal bilaterally and moist oral mucous membranes Eyes PERRL, EOMs intact bilaterally and conjunctivae normal Neck supple, no JVD, thyroid normal and no carotid bruits General: trachea midline Resp normal respiratory effort, no retractions, no use of accessory muscles and clearto auscultation bilaterally Auscultation: Negative for rales, rhonchi or wheezes Cardio regular rate, regular rhythm, S1 normal heart sound, S2 normal heart sound, no murmurs, no rub and no gallops GI normal to inspection, nondistended, normoactive bowel sounds, soft to palpation,non-tender and non-distended Extremity Extremity Narrative: There is a significant amount of edema in the right wrist along with redness andtenderness to palpation Skin Skin Narrative: Right wrist is reddened and swollen General Skin Exam: no breakdown Neuro CN's II-XII intact bilaterally, no focal motor deficits and no sensory deficits noted Neuro Narrative: Patient is confused Sensorium / Orientation: awake and alert Psych Psych Narrative: Patient is confused Results Lab / Micro Data 01/24/25 09:50 01/24/25 09:50 Labs: Laboratory Results - last 24 hr 01/24/25 09:50: WBC 14.4 H, RBC 4.22, Hgb 12.1, Hct 36.3 L, MCV 86.0, MCH 28.7, MCHC 33.3, RDW Std Deviation 45.1 H, RDW Coeff of Vidal 14.4, Plt Count 180, MPV 11.5, Immature Gran % (Auto) 0.400, Neut% (Auto) 81.8 H, Lymph % (Auto) 6.7 L, [place] % (Auto) 10.9 H, Eos % (Auto) 0.1, Baso % (Auto) 0.1, Absolute Neuts (auto)11.8 H, Absolute Lymphs (auto) 0.96, Nucleated RBC % 0, Differential Comment SCANNED, ESR 61 H, Sodium 138, Potassium 4.0, Chloride 103, Carbon Dioxide 21.9,Anion Gap 13, BUN 14, Creatinine 0.77, Estim Creat Clear Calc 46.26 L, Est GFR (MDRD) Non-Af 76, BUN/Creatinine Ratio 18.1,Glucose 139 H, Lactic Acid < 1.0, Uric Acid 4.2, Calcium 9.1, C-React Prot Ext Range 86.90 H 01/24/25 12:22: Urine Color Yellow, Urine Clarity Clear, Urine pH 6.0, Ur Specific [place] 1.025, Urine Protein 30 H, Urine Glucose (UA) Normal, Urine Ketones 150 A*, Urine Occult Blood 250 H, Urine Nitrite Negative, Urine Bilirubin Negative, Urine Urobilinogen Normal, Ur Leukocyte Esterase Negative, Urine RBC 5-10 SEEN, Urine WBC 0-5 SEEN, Ur Squamous Epith Cells 0-5 SEEN, UrineBacteria 1+, Urine Mucus 0 SEEN 01/24/25 12:50: Fluid Source Cancelled, Fluid Color Cancelled, Fluid Appearance Cancelled, Fluid WBC Cancelled, Fluid RBC Cancelled, Fluid Tot Cell Count Cancelled, Fld Polynuclear WBCs # Cancelled, Fld Polynuclear WBCs % Cancelled, Fluid Mononuclear WBCs Cancelled, Fld Mononuclear WBCs % Cancelled, Fluid Neutrophils Cancelled, Fluid Lymphocytes Cancelled, Fluid Monocytes Cancelled, Fluid Plasma Cells Cancelled, Fluid Macrophages Cancelled, Fld Mesothelial CellsCancelled, Fluid Other Cells Cancelled, Fluid Crystals NO CRYSTALS SEEN, Fluid Crystal Source SYNOVIAL, Fl Pathologist Comment Cancelled, Fluid Comment 2 Cancelled, Synovial Source RIGHT WRIST, Synovial Color Red, Synovial Appearance Cloudy, Synovial WBC 42.9700 H, Synovial RBC 0.657 H, Synovial Tot Cell Ct 43.0700 H, Synov Polynuclear WBCs 35.746, Synov Mononuclear WBCs 6.092, SynovialNeutrophils 90 H, Synovial Lymphocytes 1, Synovial Monocytes 9, Synovial Polynuclear % 85.4, Synovial Mononuclear % 14.6, Synovial Path Comment May follow 01/24/25 15:35: MRSA (PCR) Cancelled Micro: Microbiology 01/24/25 15:35 Wound - Wrist Skin and Soft Tissue MRSA/MSSA (PCR - Final 01/24/25 12:50 Fluid - Synovial (joint) Gram Stain - Final Imaging Radiology Impression Wrist X-Ray 01/24/25 09:45 IMPRESSION: 1. Soft tissue swelling. 2. Possible widening of the scapholunate joint space could be projection or ligamentous injury. Correlation with point tenderness is recommended. Reading Location: [id number] Brain CT 01/24/25 11:16 IMPRESSION: No acute intracranial abnormalities. Reading Location: [id number] Assessment & Plan Assessment/Plan (1) Septic arthritis of right wrist: Procedure Criteria Elective Risks - COVID COVID Risk Discussion: 1. Septic arthritis of the right wrist-patient will be admitted to [place] [address], she will be given IV vancomycin and Rocephin, cultures are pending, orthopedic surgery will be consulted for possible washout of the right wrist. #2 hypothyroidism-patient is on Synthroid #3 dementia-complicates care, management, recovery, and prognosis Total clinical time spent by myself addressing patient's medical issues, reviewing all her data, and collaborating with patient's care team: 55 minutes Charges/Coding Visit Charges Inpatient E&M: 25063 Init Hosp L2 01/24/25 191 Cosigner Signature (if applicable): CC: Dr. Ashley Roberson MD; Dr. Brice Avila, ~ Signed [facility]10-18-2025 Consult note [facility] Medical Records Department [address] [place] [address] Pharmacokinetic/Renal -Consult 01/24/25 1733 MR#: [id number] Acct: [id number] Name: FIONA GRUBER Rep #:[id number] : 1940 84 From: [facility] PCP: Dr. Ashley Roberson MD Status:ADM I N Y Location: [place] [address] Consult Antibiotic Management Pharmacy has been consulted to manage selected antibiotic: Vancomycin Type of Intervention Type of Consult: New start Suspected Infection Suspected Infection: Skin/Soft tissue Labs Labs: Sodium 138 mmol/L (133-145) 01/24/25 09:50 Potassium 4.0 mmol/L (3.3-5.1) 01/24/25 09:50 Chloride 103 mmol/L (98-108) 01/24/25 09:50 Carbon Dioxide 21.9 mmol/L (21.0-32.0) 01/24/25 09:50 Anion Gap 13 (5-15) 01/24/25 09:50 BUN 14 mg/dL (4-19) 01/24/25 09:50 Creatinine 0.77 mg/dL (0.70-1.20) 01/24/25 09:50 Est GFR (MDRD) Non-Af 76 (>60) 01/24/25 09:50 BUN/Creatinine Ratio 18.1 RATIO (10-20) 01/24/25 09:50 Glucose 139 mg/dL (70-99) H 01/24/25 09:50 Microbiology Microbiology: Microbiology 01/24/25 15:35 Wound - Wrist Skin and Soft Tissue MRSA/MSSA (PCR - Final 01/24/25 12:50 Fluid - Synovial (joint) Gram Stain - Final Goal Trough Goal Trough: 15-20 mcg/mL Pharmacy Plan for Drug Dosing Pharmacy Plan for Drug Dosing: NEW START IV VANCOMYCIN Consulting Physician: Dr. Avlia Indication: Cellulitis Goal Trough: 15-20 SrCr: 0.77 CrCl: 46ml/min Comments: pt received a 750mg dose of Vancomycin in the ER on 01/24/25 at 1527 Vancomycin Dose: based on patients weight and renal function, recommend an initial dose of 500mg q12h starting 01/25/25 at 0330. Trough prior to the 4th total dose Pending Level: 01/26/25 at 0300 Pharmacy Service will continue to monitor and adjust dosing as required. Follow-Up Labs Follow-Up Labs: Trough: Vancomycin (01/26/25 at 0300) 01/24/25 1734 malcom [facility]> Date _ Lico Alanis [facility] Cosigner Signature (if applicable): Date CC: ~ Signed [facility]10-18-2025 Discharge summary Author Dereck Warner [facility] Note Date/Time January 24, 2025 4 :25pm [facility] Medical Records Department [address] [place] [address] Emergency Department Summary 01/24/25 MR#: [id number] Acct: [id number] Name: FIONA GRUBER Rep #:[id number] : 1940 84 From: Dereck Warner MD PCP: Dr. Ashley Roberson MD Status:REG E R Location: ED HPI History of Present Illness Chief Complaint: Upper Extremity Injury Informant: patient and spouse/S.O. Narrative Narrative: Patient is an 84-year-old female with a history of dementia, presenting with acute right wrist pain and swelling. Patient is accompanied by who is supplementing history. - Onset of symptoms began last night. - No known trauma or injury to the wrist. - Family member reports patient has been picking at a mole on the wrist. - Severe pain with movement and palpation; unable to move wrist without significant discomfort. - Observed a linear area of erythema on the volar forearm last night. - Denies fever. - No history of gout or similar joint issues. - No history of DM or use of immunosuppressants. - Takes pravastatin and a thyroid medication. [facility] Medical History Hyperparathyroidism HTN (hypertension) Hypercalcemia Hearing disorder History of back problems Arthritis Allergies Osteoporosis Home Medications ?Medication ?Instructions ?Recorded ?Last Taken ?Type magnesium 30 mg tablet 1,000 mg PO DAILY 12/23/19 U nknown History levothyroxine 25 mcg tablet 25 mcg PO DAILY #1 TAB 12/28 Unknown Rx alendronate 70 mg/75 mL oral 70 mg PO QWEEK 03/14/21 U nknown History solution Allergy/AdvReac Type Severity Reaction Status Date / Time amoxicillin Allergy Unknown Verified 01/24/25 09:15 Penicillins (PCN) Allergy Unknown Verified 01/24/25 09:15 Family History Other Asthma Social History Smoking Status: Never smoker alcohol intake: never substance use type: does not use ROS ROS ED Review of Systems ROS Unobtainable: other Details: Limited due to dementia Constitutional Constitutional ED: Denies chills or fever(s) Cardiovascular Cardiovascular: Denies chest pain Respiratory/Chest Respiratory/Chest: Denies dyspnea Gastrointestinal Gastrointestinal: Denies abdominal pain, nausea or vomiting Musculoskeletal Musculoskeletal: Reports extremity pain; Denies back pain or neck pain Integumentary Reports rash Neurologic Neurologic: Denies headache(s), paresthesias or weakness EXAM Physical Exam Const Vital Signs: 01/24/25 09:12 Temperature 98.4 F Temperature Source Oral Pulse Rate 104 H Respiratory Rate 14 Blood Pressure 130/76 H Blood Pressure Mean 94 Pulse Ox 95 Oxygen Delivery Method Room Air Positive well nourished and well developed General Appearance ED: well developed and NAD Eyes PERRL and EOMs intact bilaterally Neck full ROM and supple Back/Spine normal ROM and normal to inspection Extremity Extremity Narrative: Very limited range of motion of the right wrist, any passive range of motion thepatient jerks in pain and has trouble moving it. Tender swollen erythema over the dorsum of the right wrist mainly. No clear spreading up the forearm although there is some faint erythema at the volar right forearm but not dorsally. No epitrochlear lymphadenopathy. Full range of motion of the elbow and shoulder without difficulty. Neuro no focal motor deficits and no sensory deficits noted Neuro Narrative: Disoriented, at baseline per spouse Sensorium / Orientation: alert Psych mental status grossly normal Skin no wounds Skin Narrative: Warm swollen erythema without fluctuance/abscess or obvious nidus for infection over the dorsum of the right wrist, mildly at the volar aspect, there is some mild erythema in the volar forearm, but no clear lymphangitis/streaking. MDM MDM MDM Narrative Medical decision making narrative: Concern here is for a monoarthritis of the right wrist. It is possible this could be cellulitis, but there is no induration, and the small mole lesion on the dorsum of the wrist, although within the area of erythema, does not appear different from other areas or necessarily infected. Therefore, I am less inclined to think this is cellulitis. Furthermore, the patient is reluctant to move the wrist at all, and any slight passive movement causes significant discomfort. I believe the joint should be evaluated for the possibility of infection versus an inflammatory monoarthritis.We obtained x-rays (three views of the right wrist), which show no acute fracture on my interpretation, and labs. The labs are notable for a leukocytosisof 14.4 with a leftward shift but no band, an ESR elevated at 61, and a CRP elevated at almost 87. The rest of her blood work is unremarkable. Calcium, uricacid, and lactate levels are normal, arguing against sepsis, although a normal uric acid does not rule out gout or pseudogout as potential causes. Given her age, I am avoiding NSAIDs. I attempted to treat her with oral Tylenol and colchicine to help alleviate her pain, but she was unable to swallow capsules. She was comfortable while resting as long as she did not move her wrist. I discussed the case with Dr. Mejia, who agreed with performing an arthrocentesis. We discussed the risks and benefits with her , who consented on her behalf due to the patient?s dementia. I performed the arthrocentesis (see procedure note) and was able to obtain 1 cc of bloody fluid, which was sent to the lab for testing. The fluid was contaminated with blood, but we performed cell count analysis showing a white blood cell count of approximately 43,000, predominantly neutrophils at 90%, and negative for crystals. A culture was also sent. I discussed the results with Dr. Chance with orthopedics, who evaluated the patient in the ER. They advised admitting her to the hospitalist service for empirical antibiotic treatment for possible septic arthritis at this time, and they will follow her. Lab Data Attestation: I reviewed the patient's lab results. Labs: Laboratory Tests 01/24/25 01/24/25 01/24/25 Range/Units 12:50 12:22 09:50 WBC 14.4 H (4.4-11.0) K/mm3 RBC 4.22 (4.2-5.4) M/mm3 Hgb 12.1 (12.0-15.0) g/dL Hct 36.3 L (37-47) % MCV 86.0 (81-99) fL MCH 28.7 (27.0-32.0) pg MCHC 33.3 (32-36) g/dL RDW Std Deviation 45.1 H (35.1-43.9) fl RDW Coeff of Vidal 14.4 (11.6-14.6) % Plt Count 180 (150-450) K/mm3 MPV 11.5 (6.2-12.0) fl Immature Gran % (Auto) 0.400 (0.0-0.9) % Neut % (Auto) 81.8 H (47-70) % Lymph % (Auto) 6.7 L (19-41) % [place] % (Auto) 10.9 H (0-10) % Eos % (Auto) 0.1 (0-5) % Baso % (Auto) 0.1 (0-1) % Absolute Neuts (auto) 11.8 H (2.0-7.7) X10^3/uL Absolute Lymphs (auto) 0.96 (0.83-4.51) X10^3/uL Nucleated RBC % 0 (0-5) % Differential Comment SCANNED ESR 61 H (0-30) mm/hr Sodium 138 (133-145) mmol/L Potassium 4.0 (3.3-5.1) mmol/L Chloride 103 (98-108) mmol/L Carbon Dioxide 21.9 (21.0-32.0) mmol/L Anion Gap 13 (5-15) BUN 14 (4-19) mg/dL Creatinine 0.77 (0.70-1.20) mg/dL Estim Creat Clear Calc 46.26 L (50-250) ml/min Est GFR (MDRD) Non-Af 76 (>60) BUN/Creatinine Ratio 18.1 (10-20) RATIO Glucose 139 H (70-99) mg/dL Lactic Acid < 1.0 (0.0-2.0) mmol/L Uric Acid 4.2 (2.6-6.0) mg/dL Calcium 9.1 (7.6-11.0) mg/dL C-React Prot Ext Range 86.90 H (0.0-3.0) mg/L Urine Color Yellow (Yellow) Urine Clarity Clear (Clear) Urine pH 6.0 (5.0 - 8.0) Ur Specific [place] 1.025 (1.002-1.030) Urine Protein 30 H (Negative) mg/dl Urine Glucose (UA) Normal (Normal) mg/dl Urine Ketones 150 A* (Negative) mg/dl Urine Occult Blood 250 H (Negative) /ul Urine Nitrite Negative (Negative) Urine Bilirubin Negative (Negative) mg/dL Urine Urobilinogen Normal (Normal) mg/dl Ur Leukocyte Esterase Negative (Negative) /ul Urine RBC 5-10 SEEN (0-5) /hpf Urine WBC 0-5 SEEN (0-5) /hpf Ur Squamous Epith Cells 0-5 SEEN (5-10) /hpf Urine Bacteria 1+ (None Seen) /hpf Urine Mucus 0 SEEN (<or=2+) /hpf Fluid Source Cancelled Fluid Color Cancelled Fluid Appearance Cancelled Fluid WBC Cancelled Fluid RBC Cancelled Fluid Tot Cell Count Cancelled Fld Polynuclear WBCs # Cancelled Fld Polynuclear WBCs % Cancelled Fluid Mononuclear WBCs Cancelled Fld Mononuclear WBCs % Cancelled Fluid Neutrophils Cancelled Fluid Lymphocytes Cancelled Fluid Monocytes Cancelled Fluid Plasma Cells Cancelled Fluid Macrophages Cancelled Fld Mesothelial Cells Cancelled Fluid Other Cells Cancelled Fluid Crystals NO CRYSTALS SEEN Fluid Crystal Source SYNOVIAL Fl Pathologist Comment Cancelled Fluid Comment 2 Cancelled Synovial Source RIGHT WRIST Synovial Color Red (Pale Yellow) Synovial Appearance Cloudy (CLEAR) Synovial WBC 42.9700 H (0.000-0.002) 10^3/uL Synovial RBC 0.657 H (0) 10^6/uL Synovial Tot Cell Ct 43.0700 H (0.000-0.000) 10^3/uL Synov Polynuclear WBCs 35.746 10^3/uL Synov Mononuclear WBCs 6.092 10^3/ul Synovial Neutrophils 90 H (0-25) % Synovial Lymphocytes 1 % Synovial Monocytes 9 % Synovial Polynuclear % 85.4 % Synovial Mononuclear % 14.6 % Synovial Path Comment May follow Radiography Diagnostic Testin views right wrist on my interpretation negative for fracture Management Discussion w/another healthcare provider: Hospitalist and Founder And Chief Technical Officer (ortho) Procedures Other Procedures Procedure(s): Arthrocentesis right wrist: After informed consent from the patient and , the patient's right wrist dorsal approach was prepped in a sterile fashion with Betadine, locally anesthetized with 1 cc of plain 1% lidocaine, and with an senior care assistant distracting the joint, with a dorsal approach just radial to the extensor indices tendon, at the level of the wrist just distal to the distal radius, was able to enter the joint with a 21-gauge sterileneedle, and aspirate 1 cc of bloody fluid, there was minimal blood loss she tolerated this well there were no complications and it was sent to the lab for testing. Discharge Plan Dx/Rx/DC Orders Clinical Impression: Septic arthritis of right wrist, Dementia without behavioral disturbance Disposition Disposition: Acute Care Hospital [facility] What to do if you have Problems For any increased pain, shortness of breath, bleeding, nausea or vomiting, chestpain, or any unexpected problems, contact your Primary Care Provider. Call [facility] ([phone]) or report to the closest Emergency Room. Call 911 if necessary. 01/24/25 1525 <Electronically signed by Dereck Warner MD> Cosigner Signature (if applicable): CC: Dr. Ashley Roberson MD ~ Signed [facility] Work Phone: [phone]) 629-844110-18-2025 Evaluation note* Diagnosis Onset Date Resolution Status Admit Date Dementia without behavioral disturbance inactive January 24 3:24pm Septic arthritis of right wrist deleted January 24 3:24pm [facility] Work Phone: [phone]) 393-910610-18-2025 Discharge summary [facility] Medical Records Department [address] [place] [address] Emergency Department Summary 01/24/25 MR#: [id number] Acct: [id number] Name: FIONA GRUBER Rep #:[id number] : 1940 84 From: Dereck Warner MD PCP: Dr. Ashley Roberson MD Status:REG E R Location: ED HPI History of Present Illness Chief Complaint: Upper Extremity Injury Informant: patient and spouse/S.O. Narrative Narrative: Patient is an 84-year-old female with a history of dementia, presenting with acute right wrist painand swelling. Patient is accompanied by who is supplementing history. - Onset of symptoms began last night. - No known trauma or injury to the wrist. - Family member reports patient has been picking at a mole on the wrist. - Severe pain with movement and palpation; unable to move wrist without significant discomfort. - Observed a linear area of erythema on the volar forearm last night. - Denies fever. - No history of gout or similar joint issues. - No history of DM or use of immunosuppressants. - Takes pravastatin and a thyroid medication. [facility] Medical History Hyperparathyroidism HTN (hypertension) Hypercalcemia Hearing disorder History of back problems Arthritis Allergies Osteoporosis Home Medications ?Medication ?Instructions ?Recorded ?Last Taken ?Type magnesium 30 mg tablet 1,000 mg PO DAILY 12/23/19 U nknown History levothyroxine 25 mcg tablet 25 mcg PO DAILY #1 TAB 12/28 Unknown Rx alendronate 70 mg/75 mL oral 70 mg PO QWEEK 03/14/21 U nknown History solution Allergy/AdvReac Type Severity Reaction Status Date / Time amoxicillin Allergy Unknown Verified 01/24/25 09:15 Penicillins (PCN) Allergy Unknown Verified 01/24/25 09:15 Family History Other Asthma Social History Smoking Status: Never smoker alcohol intake: never substance use type: does not use ROS ROS ED Review of Systems ROS Unobtainable: other Details: Limited due to dementia Constitutional Constitutional ED: Denies chills or fever(s) Cardiovascular Cardiovascular: Denies chest pain Respiratory/Chest Respiratory/Chest: Denies dyspnea Gastrointestinal Gastrointestinal: Denies abdominal pain, nausea or vomiting Musculoskeletal Musculoskeletal: Reports extremity pain; Denies back pain or neck pain Integumentary Reports rash Neurologic Neurologic: Denies headache(s), paresthesias or weakness EXAM Physical Exam Const Vital Signs: 01/24/25 09:12 Temperature 98.4 F Temperature Source Oral Pulse Rate 104 H Respiratory Rate 14 Blood Pressure 130/76 H Blood Pressure Mean 94 Pulse Ox 95 Oxygen Delivery Method Room Air Positive well nourished and well developed General Appearance ED: well developed and NAD Eyes PERRL and EOMs intact bilaterally Neck full ROM and supple Back/Spine normal ROM and normal to inspection Extremity Extremity Narrative: Very limited range of motion of the right wrist, any passive range of motion thepatient jerks in pain and has trouble moving it. Tender swollen erythema over the dorsum of the right wrist mainly. No clear spreading up the forearm although there is some faint erythema at the volar right forearm but not dorsally. No epitrochlear lymphadenopathy. Full range of motion of the elbow and shoulder without difficulty. Neuro no focal motor deficits and no sensory deficits noted Neuro Narrative: Disoriented, at baseline per spouse Sensorium / Orientation: alert Psych mental status grossly normal Skin no wounds Skin Narrative: Warm swollen erythema without fluctuance/abscess or obvious nidus for infection over the dorsum of the right wrist, mildly at the volar aspect, there is some mild erythema in the volar forearm, but no clear lymphangitis/streaking. MDM MDM MDM Narrative Medical decision making narrative: Concern here is for a monoarthritis of the right wrist. It is possible this could be cellulitis, but there is no induration, and the small mole lesion on the dorsum of the wrist, although within the area of erythema, does not appear different from other areas or necessarily infected. Therefore, I am less inclined to think this is cellulitis. Furthermore, the patient is reluctant to move the wrist at all, and any slight passive movement causes significant discomfort. I believe the joint should be evaluated for the possibility of infectionversus an inflammatory monoarthritis.We obtained x-rays (three views of the right wrist), which show no acute fracture on my interpretation, and labs. The labs are notable for a leukocytosisof 14.4 with a leftward shift but no band, an ESR elevated at 61, and a CRP elevated at almost 87. The rest of her blood work is unremarkable. Calcium, uricacid, and lactate levels are normal, arguing against sepsis, although a normal uric acid does not rule out gout or pseudogout as potential causes. Given her age, I am avoiding NSAIDs. I attempted to treat her with oral Tylenol and colchicine to help alleviate her pain, but she was unable to swallow capsules. She was comfortable while resting aslong as she did not move her wrist. I discussed the case with Dr. Mejia, who agreed with performing an arthrocentesis. We discussed the risks and benefits with her , who consented on her behalf due to the patient?s dementia. I performed the arthrocentesis (see procedure note) and was able to obtain 1 cc of bloody fluid, which was sent to the lab for testing. The fluid was contaminated with blood, but we performed cell count analysis showing a white blood cell count of approximately 43,000, predominantly neutrophils at 90%, and negative for crystals. A culture was also sent. I discussed the results with Dr. Chance with orthopedics, who evaluated the patient in the ER. They advised admitting her to the hospitalist service for empirical antibiotic treatment for possible septic arthritis at this time, and they will follow her. Lab Data Attestation: I reviewed the patient's lab results. Labs: Laboratory Tests 01/24/25 01/24/25 01/24/25 Range/Units 12:50 12:22 09:50 WBC 14.4 H (4.4-11.0) K/mm3 RBC 4.22 (4.2-5.4) M/mm3 Hgb 12.1 (12.0-15.0) g/dL Hct 36.3 L (37-47) % MCV 86.0 (81-99) fL MCH 28.7 (27.0-32.0) pg MCHC 33.3 (32-36) g/dL RDW Std Deviation 45.1 H (35.1-43.9) fl RDW Coeff of Vidal 14.4 (11.6-14.6) % Plt Count 180 (150-450) K/mm3 MPV 11.5 (6.2-12.0) fl Immature Gran % (Auto) 0.400 (0.0-0.9) % Neut % (Auto) 81.8 H (47-70) % Lymph % (Auto) 6.7 L (19-41) % [place] % (Auto) 10.9 H (0-10) % Eos % (Auto) 0.1 (0-5) % Baso % (Auto) 0.1 (0-1) % Absolute Neuts (auto) 11.8 H (2.0-7.7) X10^3/uL Absolute Lymphs (auto) 0.96 (0.83-4.51) X10^3/uL Nucleated RBC % 0 (0-5) % Differential Comment SCANNED ESR 61 H (0-30) mm/hr Sodium 138 (133-145) mmol/L Potassium 4.0 (3.3-5.1) mmol/L Chloride 103 (98-108) mmol/L Carbon Dioxide 21.9 (21.0-32.0) mmol/L Anion Gap 13 (5-15) BUN 14 (4-19) mg/dL Creatinine 0.77 (0.70-1.20) mg/dL Estim Creat Clear Calc 46.26 L (50-250) ml/min Est GFR (MDRD) Non-Af 76 (>60) BUN/Creatinine Ratio 18.1 (10-20) RATIO Glucose 139 H (70-99) mg/dL Lactic Acid < 1.0 (0.0-2.0) mmol/L Uric Acid 4.2 (2.6-6.0) mg/dL Calcium 9.1 (7.6-11.0) mg/dL C-React Prot Ext Range 86.90 H (0.0-3.0) mg/L Urine Color Yellow (Yellow) Urine Clarity Clear (Clear) Urine pH 6.0 (5.0 - 8.0) Ur Specific [place] 1.025 (1.002-1.030) Urine Protein 30 H (Negative) mg/dl Urine Glucose (UA) Normal (Normal) mg/dl Urine Ketones 150 A* (Negative) mg/dl Urine Occult Blood 250 H (Negative) /ul Urine Nitrite Negative (Negative) Urine Bilirubin Negative (Negative) mg/dL Urine Urobilinogen Normal (Normal) mg/dl Ur Leukocyte Esterase Negative (Negative) /ul Urine RBC 5-10 SEEN (0-5) /hpf Urine WBC 0-5 SEEN (0-5) /hpf Ur Squamous Epith Cells 0-5 SEEN (5-10) /hpf Urine Bacteria 1+ (None Seen) /hpf Urine Mucus 0 SEEN ( Fluid Source Cancelled Fluid Color Cancelled Fluid Appearance Cancelled Fluid WBC Cancelled Fluid RBC Cancelled Fluid Tot Cell Count Cancelled Fld Polynuclear WBCs # Cancelled Fld Polynuclear WBCs % Cancelled Fluid Mononuclear WBCs Cancelled Fld Mononuclear WBCs % Cancelled Fluid Neutrophils Cancelled Fluid Lymphocytes Cancelled Fluid Monocytes Cancelled Fluid Plasma Cells Cancelled Fluid Macrophages Cancelled Fld Mesothelial Cells Cancelled Fluid Other Cells Cancelled Fluid Crystals NO CRYSTALS SEEN Fluid Crystal Source SYNOVIAL Fl Pathologist Comment Cancelled Fluid Comment 2 Cancelled Synovial Source RIGHT WRIST Synovial Color Red (Pale Yellow) Synovial Appearance Cloudy (CLEAR) Synovial WBC 42.9700 H (0.000-0.002) 10^3/uL Synovial RBC 0.657 H (0) 10^6/uL Synovial Tot Cell Ct 43.0700 H (0.000-0.000) 10^3/uL Synov Polynuclear WBCs 35.746 10^3/uL Synov Mononuclear WBCs 6.092 10^3/ul Synovial Neutrophils 90 H (0-25) % Synovial Lymphocytes 1 % Synovial Monocytes 9 % Synovial Polynuclear % 85.4 % Synovial Mononuclear % 14.6 % Synovial Path Comment May follow Radiography Diagnostic Testin views right wrist on my interpretation negative for fracture Management Discussion w/another healthcare provider: Hospitalist and Founder And Chief Technical Officer (ortho) Procedures Other Procedures Procedure(s): Arthrocentesis right wrist: After informed consent from the patient and , the patient's right wrist dorsal approach was prepped in a sterile fashion with Betadine, locally anesthetized with 1 cc of plain 1% lidocaine, and with an senior care assistant distracting the joint, with a dorsal approach just radial to the extensor indices tendon, at the level of the wrist just distal to the distal radius, was able to enter the joint with a 21-gauge sterileneedle, and aspirate 1 cc of bloody fluid, there was minimal blood loss she tolerated this well there were no complications and it was sent to the lab for testing. Discharge Plan Dx/Rx/DC Orders Clinical Impression: Septic arthritis of right wrist, Dementia without behavioral disturbance Disposition Disposition: Acute Care Hospital [facility] What to do if you have Problems For any increased pain, shortness of breath, bleeding, nausea or vomiting, chestpain, or any unexpected problems, contact your Primary Care Provider. Call [facility] ([phone]) or report tothe closest Emergency Room. Call 911 if necessary. 01/24/25 1525 Cosigner Signature (if applicable): CC: Dr. Ashley Roberson MD ~ Signed [facility]10-18-2025 Radiology Diagnostic study note [facility] Imaging Services [address], [place] [address] Brain/Head without Contrast MR#: [id number] Acct: [id number] Name: FIONA GRUBER Rep #: [id number] : 1940 F 84 From: Alfonso Bermudez MD PCP: Dr. Ashley Roberson MD Status: REG E R Study:Brain/Head without Contrast Date of Exa m: 01/24/25 Exam# [id number] Ordering Dr: Jarocho Warner MD PROCEDURE: BRAIN/HEAD WITHOUT CONTRAST 01/24/2025 REASON FOR EXAM: CONFUSION, HX CAA TECHNIQUE: Procedure Code: CTBR Modality: CT Procedure: BRAIN/HEAD WITHOUT CONTRAST Coronal and Sagittal reconstruction series were provided. One or more dose reduction techniques were used (e.g., Automated exposure control, adjustment of the mA and/or kV according to patient size, use of iterative reconstruction technique. RADIATION DOSE SUMMARY: CTDlvol: 44.99 mGy DLP: 796.11 mGycm COMPARISON: None. FINDINGS: Brain: Extensive low density in the deep cerebral white matter most likely represents advanced chronic small vessel ischemic disease. No acute territorial infarction. No acute intracranial hemorrhage. No mass-effect or midline shift. CSF Spaces: Mild generalized cerebral atrophy Sinuses/Mastoids: Clear. Bones: No acute bony abnormalities. CT/Brain/Head without Contrast IMPRESSION: No acute intracranial abnormalities. Reading Location: [facility] CC: Dr. Dereck Warner MD; Dr. Ashley Roberson MD ~ Neonatologist: Signed [facility]10-18-2025 Radiology Diagnostic study note [facility] Imaging Services [address] [place] [id number] Wrist min 3 Views MR#: [id number] Acct: [id number] Name: FIONA GRUBER Rep #: [id number] : 1940 F 84 From: Melonie Santiago MD PCP: Dr. Ashley Roberson MD Status: REG E R Study:Wrist min 3 Views Date of Exam: Exam# [id number] Ordering Dr: Jarocho Warner MD EXAM: XR Right Wrist Complete, 3 or More Views CLINICAL INDICATION: PAIN TECHNIQUE: Frontal, lateral and oblique views of the right wrist. COMPARISON: No relevant prior studies available. FINDINGS: BONES/JOINTS: Mild degenerative changes of the intercarpal joints. Mild degenerative changes of the1st carpometacarpal joint. Possible widening of the scapholunate joint space could be projection or ligamentous injury. Correlation with point tenderness is recommended. No acute fracture. No dislocation. SOFT TISSUES: Soft tissue swelling. No radiopaque foreign body. RAD/Wrist min 3 Views IMPRESSION: 1. Soft tissue swelling. 2. Possible widening of the scapholunate joint space could be projection or ligamentous injury. Correlation with point tenderness is recommended. Reading Location: [facility] CC: Dr. Dereck Warner MD; Dr. Ashley Roberson MD ~ Neonatologist: Signed [facility]09-18-2025 NoteHNO ID: [id number] Author: ?, ?, ? Service: ? Author Type: Licensed Nurse Type: Progress Notes Filed: 12/25/2024 10:31 Note Text: Patient arrived with for Prolia injection. Reports that they recently received a bill for over $1000 for her last injection. has an information paper on contacts to reach out to for further instruction on what needs to be done to correct incorrect coding. Also recommended that they contact both the medical insurance and prescription insurance company to see who will cover the Prolia with their coverage. states that the did not have any issues last year, but they changed insurance this year. He will contact them and then let office know. Kailee Castillo, [facility]08-19-2025 Telephone encounter Note * Telephone Encounter - Nikki Higgins MA - 11/25/2024 4:44 PM EDT The following approved medication requests have been transmitted electronically. Requested Prescriptions Signed Prescriptions Disp Refills cholestyramine (QUESTRAN) 4 gram packet 90 packet 2 Sig: Take 1 packet by mouth three times a day with meals. Authorizing Provider: ASHLEY ROBERSON MA [facility]08-19-2025 Miscellaneous Notes* Telephone Encounter - Nikki Higgins MA - 11/25/2024 4:44 PM EDT The following approved medication requests have been transmitted electronically. Requested Prescriptions Signed Prescriptions Disp Refills cholestyramine (QUESTRAN) 4 gram packet 90 packet 2 Sig: Take 1 packet by mouth three times a day with meals. Authorizing Provider: ASHLEY ROBERSON MA * Telephone Encounter - Ashley Roberson MD - 11/25/2024 4:43 PM EDT I sent an rx to the local pharmacy Ashley Reyes MD * Telephone Encounter - Ann Thompson RN - 11/21/2024 5:00 PM EDT Called and spoke with pt and her Dong. Per pt has only been taking the Cholestyramine packets twice a day. They said originally they were taking it once a day and then Dr. Roberson told pt to take it twice a day. Pt's read the instructions on the box that say pt should be taking it three times a day with meals. Also noted on the box is 2 refills from [facility]. He isinstructed to call [facility] to get the refill to them as soon as possible. states ptonly has one packet left to use tomorrow. Pt did a virtual visit with Dr. Lyn Mckeon with functional medicine at [facility]. Per his msgs and notes, he documents that pt has been taking it BID and he stated the following in his post visit instructions: Patient Instructions We discussed your ongoing diarrhea and related symptoms: - You have been experiencing loose, watery stools with urgency and accidents for about a year. You have tried colestipol and cholestyramine twice daily without improvement. - I recommend stool microbiome testing (GI Effects by Par[facility]) to evaluate for potentialimbalances, inflammation, or other underlying causes. A kit will be mailed to you, and you should collect three separate stool samples (on the same or different days) and return them as instructed. Results typically take 3-4 weeks to process. - Continue taking cholestyramine but adjust the timing: take it at least 1 hour before or 4-6 hoursafter food, medications, or supplements to avoid interference with absorption. * Telephone Encounter - Izabella Nunez - 11/21/2024 1:08 PM EDT REROUTING * Telephone Encounter - Izabella Nunez - 11/21/2024 1:04 PM EDT Prescription Refill Information The patient has been identified by name and date of : Yes Caregiver verified no other encounters exist for this prescription request: Yes Caregiver confirmed with patient/requestor that no other refills are due, in the near future, with this provider at this time: Yes The last office visit in the department: 09-30-24 Does the patient have a future office visit with this provider/department: Yes Requested Prescriptions Pending Prescriptions Disp Refills cholestyramine (QUESTRAN) 4 gram packet 90 packet 2 Sig: Take 1 packet by mouth three times a day with meals. Patient has 1 pill left. Izabella Nunez November 21, 2024 1:05 PM [facility] Telephone encounter Note * Telephone Encounter - Ashley Roberson MD - 11/25/2024 4:43 PM EDT I sent an rx to the local pharmacy Ashley Reyes MD [facility]08-15-2025 Telephone encounter Note* Telephone Encounter - Ann Thompson RN - 11/21/2024 5:00 PM EDT Called and spoke with pt and her Dong. Per pt has only been taking the Cholestyramine packets twice a day. They said originally they were taking it once a day and then Dr. Roberson told pt to take it twice a day. Pt's read the instructions on the box that say pt should be taking it three times a day with meals. Also noted on the box is 2 refills from [facility]. He isinstructed to call [facility] to get the refill to them as soon as possible. states ptonly has one packet left to use tomorrow. Pt did a virtual visit with Dr. Lyn Mckeon with functional medicine at [facility]. Per his msgs and notes, he documents that pt has been taking it BID and he stated the following in his post visit instructions: Patient Instructions We discussed your ongoing diarrhea and related symptoms: - You have been experiencing loose, watery stools with urgency and accidents for about a year. You have tried colestipol and cholestyramine twice daily without improvement. - I recommend stool microbiome testing (GI Effects by Parudi) to evaluate for potentialimbalances, inflammation, or other underlying causes. A kit will be mailed to you, and you should collect three separate stool samples (on the same or different days) and return them as instructed. Results typically take 3-4 weeks to process. - Continue taking cholestyramine but adjust the timing: take it at least 1 hour before or 4-6 hoursafter food, medications, or supplements to avoid interference with absorption. [facility]08-15-2025 Telephone encounter Note* Telephone Encounter - Izabella Nunez - 11/21/2024 1:08 PM EDT REROUTING T [facility]08-15-2025 Telephone encounter Note* Telephone Encounter - Izabella Nunez - 11/21/2024 1:04 PM EDT Prescription Refill Information The patient has been identified by name and date of : Yes Caregiver verified no other encounters exist for this prescription request: Yes Caregiver confirmed with patient/requestor that no other refills are due, in the near future, with this provider at this time: Yes The last office visit in the department: 09-30-24 Does the patient have a future office visit with this provider/department: Yes Requested Prescriptions Pending Prescriptions Disp Refills cholestyramine (QUESTRAN) 4 gram packet 90 packet 2 Sig: Take 1 packet by mouth three times a day with meals. Patient has 1 pill left. Izabella Nunez November 21, 2024 1:[address]04-2025 Telephone encounter Note* Telephone Encounter - Chevy Narayan RN - 11/10/2024 5:43 PM EDT Pt's called and is notified of providers results and instructions. He voices understanding. Chevy Narayan RN [facility]08-04-2025 Miscellaneous Notes* Telephone Encounter - Chevy Narayan RN - 11/10/2024 5:43 PM EDT Pt's called and is notified of providers results and instructions. He voices understanding. Chevy Narayan RN * Telephone Encounter - Ashley Roberson MD - 11/10/2024 5:25 PM EDT Well we can stop the medication. For the first week take the pill every other day and then stop themedication. Regards, Ashley Roberson MD * Telephone Encounter - Radha Mario RN - 11/10/2024 2:54 PM EDT Spouse (Dong) calling with an update since patient was started on escitalopram 10 mg at bedtime. Dong reports that shortly after patient started taking the escitalopram (within a few days) theynoticed that patient was sleeping majority of the day as well as the usual at bedtime. Dong alsonoticed that patient is requiring assistance with dressing and ADL's that she was able to complete on her own prior to starting the escitalopram with occasional cuing. Also reports noticing increasedincontinence during the night with the escitalopram. Please review and advise, Radha Mario RN [facility] Telephone encounter Note * Telephone Encounter - Ashley Roberson MD - 11/10/2024 5:25 PM EDT Well we can stop the medication. For the first week take the pill every other day and then stop themedication. Regards, Ashley Roberson MD [facility]08-04-2025 Telephone encounter Note* Telephone Encounter - Radha Mario RN - 11/10/2024 2:54 PM EDT Spouse (Dong) calling with an update since patient was started on escitalopram 10 mg at bedtime. Dong reports that shortly after patient started taking the escitalopram (within a few days) theynoticed that patient was sleeping majority of the day as well as the usual at bedtime. Dong alsonoticed that patient is requiring assistance with dressing and ADL's that she was able to complete on her own prior to starting the escitalopram with occasional cuing. Also reports noticing increasedincontinence during the night with the escitalopram. Please review and advise, Radha Mario RN [facility]07-25-2025 NoteHNO ID: [id number] Author: LYN MCKEON MD Service: ? Author Type: Physician Type: Progress Notes Filed: 10/31/2024 16:28 Note Text: FUNCTIONAL MEDICINE INITIAL ASSESSMENT Patient: Fiona Gruber ALLERGIES Allergen Reactions Amoxicillin Hives GI upset Oxycodone GI Upset Penicillins Hives Seasonal Allergies Itching Fall Current Outpatient Medications Medication Sig Dispense Refill escitalopram oxalate (LEXAPRO) 10 mg tablet Take 1 tablet by mouth daily at bedtime. 30 tablet 3 levothyroxine (SYNTHROID) 25 mcg tablet Take 1 tablet by mouth once daily. 90 tablet 3 memantine (NAMENDA) 10 mg tablet Take 1 tablet by mouth two times a day. 60 tablet 3 cholestyramine (QUESTRAN) 4 gram packet Take 1 packet by mouth three times a day with meals. 90 packet 2 donepezil (ARICEPT) 10 mg tablet Take 1 tablet by mouth daily after breakfast. 90 tablet 3 colestipol (COLESTID) 1 gram tablet Take 1 tablet by mouth two times a day. 60 tablet 1 Current Facility-Administered Medications Medication Dose Route Frequency Provider Last Rate Last Admin denosumab 60 mg injection (PROLIA) 60 mg SUBCUTANEOUS Q 6 MONTH Elin Lawrence PA-C 60 mg at 06/23/24 1045 EVALUATION Patient Entered Questionnaire PROMIS Scale T-Scores -- HIGHER SCORES BETTER 04/24/2024 08/17/2024 10/31/2024 PROMIS Global Health - (T-Scores - the mean of general population = 50. Five points is a clinically meaningful difference.) Physical T-Score 42.3 42.3 32.4 Mental T-Score 43.5 48.3 36.3 Subjective Functional Medicine History Fiona Gruber is a 84-year-old female with a history of CAA, presenting with chronic diarrhea. History provided by daughter Marlen and spouse Dong who accompany Fiona on the telehealth visit. Fiona has been experiencing chronic diarrhea for approximately 1 year, characterized by loose, watery stools with a light brown color. The diarrhea is accompanied by urgency, leading to frequent accidents. She has been taking cholestyramine BID as prescribed by her PCP, but it has not provided relief. Tested for C. Difficile and Lactoferrin in Apr 2024 (negative). No seen by GI in past year. Adjustment at time of Aricept for memory along with Namenda but cannot attribute this to symptoms. She previously tried colestipol without improvement. Her daughter, who is present at the visit, reports that they have not been able to identify any dietary triggers for the diarrhea. Fiona has a varied diet, avoiding beef and consuming minimal dairy. She was vegan for about 10 years, ending in 2019. Her appetite fluctuates, with some days eating a lot and other days not feeling like eating. She consumes a good amount of vegetables and homemade rye bread. She denies any undigested food in her stools. She has not experienced significant weight loss, only a couple of pounds over the year. She also reports excessive flatulence, but denies bloating or nausea. 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 She had a recent fall out of bed in August, which resulted in more brain bleeds. She is currently on donepezil, started 2 years ago, and memantine, started about a year ago. She recently started Lexapro this week for issues at night, but has noticed increased fatigue. She is also taking vitamin D, Osteo Bi-Flex, and CBD for sleep, which has been helpful. She was previously taking MCT oil and a probiotic, but these were discontinued after a fall that resulted in a neck fracture. She is unable to swallow pills and prefers powders or liquids. Fiona has not seen a de ionizer operator for her symptoms. She has an intact gallbladder. Supplements Current Outpatient Medications on File Prior to Visit Medication Sig escitalopram oxalate (LEXAPRO) 10 mg tablet Take 1 tablet by mouth daily at bedtime. levothyroxine (SYNTHROID) 25 mcg tablet Take 1 tablet by mouth once daily. memantine (NAMENDA) 10 mg tablet Take 1 tablet by mouth two times a day. memantine (NAMENDA) 10 mg/5 mL oral liquid 5ml po twice daily (Patient not taking: Reported on 09/29/2024) cholestyramine (QUESTRAN) 4 gram packet Take 1 packet by mouth three times a day with meals. donepezil (ARICEPT) 10 mg tablet Take 1 tablet by mouth daily after breakfast. colestipol (COLESTID) 1 gram tablet Take 1 tablet by mouth two times a day. Current Facility-Administered Medications on File Prior to Visit Medication denosumab 60 mg injection (PROLIA) Review of Systems Constitutional: (+) fatigue, (-) unintentional weight loss Ears/Nose/Mouth/Throat: (+) difficulty swallowing pills Gastrointestinal: (+) watery diarrhea, (+) fecal urgency, (+) fecal incontinence, (+) excessive flatus, (+) decreased appetite Vital Signs There were no vitals taken for this visit. Physical Exam Vitals reviewed. Constitutional: Appearance: Normal appearance. HENT: Head: Normocephalic and atra (more content not included)...[facility]07-25-2025 History of Present illness Narrative* Lyn Mckeon MD - 10/31/2024 2:58 PM EDT FUNCTIONAL MEDICINE INITIAL ASSESSMENT Patient: Fiona Gruber ALLERGIES Allergen Reactions Amoxicillin Hives GI upset Oxycodone GI Upset Penicillins Hives Seasonal Allergies Itching Fall Current Outpatient Medications Medication Sig Dispense Refill escitalopram oxalate (LEXAPRO) 10 mg tablet Take 1 tablet by mouth daily at bedtime. 30 tablet 3 levothyroxine (SYNTHROID) 25 mcg tablet Take 1 tablet by mouth once daily. 90 tablet 3 memantine (NAMENDA) 10 mg tablet Take 1 tablet by mouth two times a day. 60 tablet 3 cholestyramine (QUESTRAN) 4 gram packet Take 1 packet by mouth three times a day with meals. 90 packet 2 donepezil (ARICEPT) 10 mg tablet Take 1 tablet by mouth daily after breakfast. 90 tablet 3 colestipol (COLESTID) 1 gram tablet Take 1 tablet by mouth two times a day. 60 tablet 1 Current Facility-Administered Medications Medication Dose Route Frequency Provider Last Rate Last Admin denosumab 60 mg injection (PROLIA) 60 mg SUBCUTANEOUS Q 6 MONTH Elin Lawrence PA-C 60 mg at 06/23/24 1045 EVALUATION Patient Entered Questionnaire PROMIS Scale T-Scores -- HIGHER SCORES BETTER 04/24/2024 08/17/2024 10/31/2024 PROMIS Global Health - (T-Scores - the mean of general population = 50. Five points is a clinicallymeaningful difference.) Physical T-Score 42.3 42.3 32.4 Mental T-Score 43.5 48.3 36.3 Subjective Functional Medicine History Fiona Gruber is a 84-year-old female with a history of CAA, presenting with chronic diarrhea. History provided by daughter Marlen and spouse Dong who accompany Fiona on the telehealth visit. Fiona has been experiencing chronic diarrhea for approximately 1 year, characterized by loose, watery stools with a light brown color. The diarrhea is accompanied by urgency, leading to frequent accidents. She has been taking cholestyramine BID as prescribed by her PCP, but it has not provided relief. Tested for C. Difficile and Lactoferrin in Apr 2024 (negative). No seen by GI in past year. Adjustment at time of Aricept for memory along with Namenda but cannot attribute this to symptoms. She previously tried colestipol without improvement. Her daughter, who is present at the visit, reports that they have not been able to identify any dietary triggers for the diarrhea. Fiona has a varied diet, avoiding beef and consuming minimal dairy. She was vegan for about 10 years, ending in 2018. Herappetite fluctuates, with some days eating a lot and other days not feeling like eating. She consumes a good amount of vegetables and homemade rye bread. She denies any undigested food in her stools.She has not experienced significant weight loss, only a couple of pounds over the year. She also reports excessive flatulence, but denies bloating or nausea. 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 She had a recent fall out of bed in August, which resulted in more brain bleeds. She is currently on donepezil, started 2 years ago, and memantine, started about a year ago. She recently started Lexapro this week for issues at night, but has noticed increased fatigue. She is also taking vitamin D, Osteo Bi-Flex, and CBD for sleep, which has been helpful. She was previously taking MCT oil and a probiotic, but these were discontinued after a fall that resulted in a neck fracture. She is unable to swallow pills and prefers powders or liquids. Fiona has not seen a de ionizer operator for her symptoms. She has an intact gallbladder. Supplements Current Outpatient Medications on File Prior to Visit Medication Sig escitalopram oxalate (LEXAPRO) 10 mg tablet Take 1 tablet by mouth daily at bedtime. levothyroxine (SYNTHROID) 25 mcg tablet Take 1 tablet by mouth once daily. memantine (NAMENDA) 10 mg tablet Take 1 tablet by mouth two times a day. memantine (NAMENDA) 10 mg/5 mL oral liquid 5ml po twice daily (Patient not taking: Reported on 09/29/2024) cholestyramine (QUESTRAN) 4 gram packet Take 1 packet by mouth three times a day with meals. donepezil (ARICEPT) 10 mg tablet Take 1 tablet by mouth daily after breakfast. colestipol (COLESTID) 1 gram tablet Take 1 tablet by mouth two times a day. Current Facility-Administered Medications on File Prior to Visit Medication denosumab 60 mg injection (PROLIA) Review of Systems Constitutional: (+) fatigue, (-) unintentional weight loss Ears/Nose/Mouth/Throat: (+) difficulty swallowing pills Gastrointestinal: (+) watery diarrhea, (+) fecal urgency, (+) fecal incontinence, (+) excessive flatus, (+) decreased appetite Vital Signs There were no vitals taken for this visit. Physical Exam Vitals reviewed. Constitutional: Appearance: Normal appearance. HENT: Head: Normocephalic and atraumatic. Right Ear: Hearing and external ear normal. Left Ear: Hearing and external ear normal. Eyes: General: Lids are normal. Extraocular Movements: Extraocular movements intact. Musculoskeletal: Cervical back: No pain with movement. Neurological: Mental Status: She is alert. Psychiatric: Attention and Perception: Attention and perception normal. Mood and Affect: Mood normal. Speech: Speech normal. Behavior: Behavior normal. Thought Content: Thought content normal. Cognition and Memory: Cognition and memory normal. Judgment: Judgment normal. Labs: (prior to initial visit via EPIC or discussed during visit ) Labs: Tests: Imaging: - Brain imaging: Additional small hemorrhages identified following a fall. - Brain imaging: Further small hemorrhages noted compared to a previous study. - Brain imaging: Multiple cerebral microhemorrhages consistent with cerebral amyloid angiopathy. Initial Functional Medicine Assessment Underlying Causes: trauma, toxins, adverse reaction to food, nutritional insufficiencies or excessess Matrix Nodes DIGESTION, ABSORPTION, RESPIRATION ASSIMILIATION: Dysbiosis and Malabsorption MEMBRANES, FASCIA, BACTERIAL TRANSLOCATION STRUCTURAL INTEGRITY: History of TBI and Intestinal Permeability HORMONES, NEUROTRANSMITTERS, CYTOKINESCOMMUNICATION: Depression (Neurotransmitter Dysfunction) and Menopause CARDIOVASCULAR AND LYMPHATIC TRANSPORT: Endothelial dysfunction IMMUNE FUNCTION , INFLAMMATION, INFECTION DEFENSE AND REPAIR: Dysbiosis PRODUCTION, REGULATION ? BIOTRANSFORMATION - DETOXIFICATION: Mold Exposure R19.7 Diarrhea, unspecified type (primary encounter diagnosis) R15.2 Fecal urgency E03.9 Hypothyroidism, acquired F03.90 Dementia without behavioral disturbance (HCC) I68.0 Cerebral amyloid angiopathy (CODE) E55.9 Vitamin D deficiency Z91.81 History of fall 1. Diarrhea, unspecified type (R19.7) Fecal urgency (R15.2) Chronic watery diarrhea with fecal urgency and incontinence for approximately one year. Current treatment with cholestyramine 2x daily is ineffective. Diet is varied with adequate fiber intake; no significant weight loss. Nocturnal gas is present. Onset coincides with initiation of memantine therapy. Gallbladder is intact. - Ordered comprehensive stool analysis (GI Effects by [facility]) to evaluate microbiome balance, presence of pathogens, and inflammatory markers. - Ordered lab tests including C-reactive protein, prealbumin, copper, zinc, magnesium, B vitamins (B1, B2, B6, B12), vitamin A, and vitamin C to assess nutritional status and inflammation. - Advised to take cholestyramine 1 hour before or 4-6 hours after meals and other medications to avoid binding essential nutrients and medications. - Consider referral to gastroenterology for further evaluation if symptoms persist after stool testresults. 2. Hypothyroidism, acquired (E03.9) Stable on current thyroid medication. 3. Dementia without behavioral disturbance (HCC) (F03.90) Cerebral amyloid angiopathy (CODE) (I68.0) Progressive cognitive decline over the past five years, attributed to cerebral amyloid angiopathy with multiple small brain bleeds. Currently managed with donepezil and memantine. - Continue current medications. - Monitor for any worsening of cognitive symptoms. 4. Vitamin D deficiency (E55.9) Currently taking vitamin D supplementation. 5. History of fall (Z91.81) Recent fall with no significant injuries reported. Plan and Lifestyle Prescription Patient Instructions We discussed your ongoing diarrhea and related symptoms: - You have been experiencing loose, watery stools with urgency and accidents for about a year. You have tried colestipol and cholestyramine twice daily without improvement. - I recommend stool microbiome testing (GI Effects by [facility]) to evaluate for potentialimbalances, inflammation, or other underlying causes. A kit will be mailed to you, and you should collect three separate stool samples (on the same or different days) and return them as instructed. Results typically take 3-4 weeks to process. GI effects stool test - (will be sent by mail to you in coming days) Please stop GI supplements for7-10 days before collecting your stool (ex:probiotics, betaine HCL, sweetish bitters, saccharomyces, biocidin, herbal antibiotics, GI revive, glutatamine). Digestive enzymes are appropriate to stay on - read the instructions! Testing takes at least 4 to 6 weeks after you submit the kit for result .We will go over this in the office as the level of detail exceeds use of [employer] for interpretationin 3 to 4 months. - Once the stool test results are available, please schedule a follow-up visit to review the findings and discuss next steps. - Continue taking cholestyramine but adjust the timing: take it at least 1 hour before or 4-6 hoursafter food, medications, or supplements to avoid interference with absorption. - If fiber is reintroduced into your diet, monitor for any worsening symptoms such as bloating or discomfort. A specific fiber supplement, PaleoFiber RS (by [employer]), may be considered after stool test results are reviewed. We discussed your nutritional status and supplements: - I will order blood tests to check for nutritional deficiencies, including copper, zinc, magnesium, prealbumin, B vitamins (B1, B2, B6, B12), and vitamins A and C. These labs do not require fasting and can be completed at the [facility]-affiliated site in [place] - You may consider adding a multivitamin or mineral supplement to support your nutrition, but we will confirm this after reviewing your lab results. - Hold off on starting a probiotic until stool test results are available, as the specific strains needed will depend on the findings. We discussed your medications and recent changes: - You recently started Lexapro (escitalopram). Monitor for any changes in bowel symptoms or side effects such as increased fatigue. If concerns arise, discuss with your prescribing provider. - Continue taking your current medications, including vitamin D, Osteo Bi-Flex, and CBD for sleep, as they appear to be helping. We discussed additional evaluations: - If the stool test and lab results do not provide clear answers, I may recommend a referral to a de ionizer operator to rule out other causes of your symptoms, such as structural issues in the gastrointestinal tract. This could include a colonoscopy if deemed necessary based on your symptoms. Next steps: - Complete the stool test and return the kit as instructed. - Complete the lab work at your convenience. - Monitor your symptoms and let us know if there are any significant changes or concerns. - Once the stool test results are available, schedule a follow-up visit to review the findings and develop a treatment plan. Please feel free to reach out if you have any questions or need assistance with scheduling. Testing Complete labs as ordered - we will review the results in the coming weeks with the [employer] result notes. Due to the complexity of the testing, we are unable to review your labs via [employer] or over the phone or [employer] in detail. However, please rest assured that if any of your labs show critical results, we will contact you promptly. Please do not make a separate appointment to go over labs before this time. LIFESTYLE PRESCRIPTION Functional Nutrition: Ensure enough fiber in diet 30 to 40 grams daily (mix of soluble and insoluble). Sources of fiber are not personalized and adjust if intolerant to food listed. Soluble Fiber Benefits: Dissolves in water to form a gel-like substance. Helps lower cholesterol and blood sugar levels. Slows down digestion, which can aid in blood sugar control. Sources: Oats: 1 cup cooked oats = 4 grams of soluble fiber. Beans: 1 cup cooked black beans = 5.4 grams. Apples: 1 medium apple = 1 gram. [place]cord Fruits: 1 orange = 1.8 grams. Psyllium: 1 tablespoon = 5 grams. Insoluble Fiber Benefits: Does not dissolve in water. Adds bulk to stool, helping with regular bowel movements. Helps prevent constipation and supports digestive health. Sources: Whole Wheat Flour: 1 cup = 12.8 grams of insoluble fiber. Nuts: 1 ounce of almonds = 3.5 grams. Vegetables: 1 cup of raw carrots = 2 grams. Berries: 1 cup of raspberries = 8 grams. Potatoes (with skin): 1 medium potato = 2 grams. It s important to include a mix of both soluble and insoluble fiber in your diet to reap the full health benefits. Start slowly if you re increasing your fiber intake to avoid digestive discomfort, and make sure to drink plenty of water. At [facility], we prioritize a holistic approach to health, addressing the mind, body, and spirit. Our dedicated health coaches are here to support you throughout your journey. Health coaching is a valuable and complimentary service offered to all our patients. Our health coaches play a crucial role in helping you implement your functional medicine care plan and achieve your health goals. Regular sessions with your health coach professional athletes can help you identify your next steps and establish a solid foundation for healing. Together, we will develop a personalized plan for movement, sleep, and stress management. Exercise and Movement: Consistent physical activity not only extends your lifespan but also enhances your overall quality of life, mental well-being, and self-perception. Regardless of your current fitness level, there is a suitable form of exercise for everyone! Our health coaches are equipped with valuable resources to share, provide accountability, assist with goal setting, and offer continuous encouragement. Optimizing Sleep Health: Achieving a restful night's sleep goes beyond mere duration; quality is equally important. Both factors are crucial for allowing the body and mind to repair and rejuvenate from daily activities. Alongside numerous health benefits, a good night's sleep enhances memory, strengthens the immune system,boosts mood, reduces stress hormones, and even alleviates pain! Discover how our Health Coaches can guide you in safeguarding your sleep. Your body and mind will express their gratitude! Exercise Prescription: Mix It Up: Incorporate a variety of exercises to keep things interesting and work different muscle groups. Listen to Your Body: Pay attention to how your body feels and adjust your workouts accordingly. Stay Hydrated: Drink plenty of water before, during, and after your workouts. Supplements Recommended: No orders of the defined types were placed in this encounter. Stress Management - Critical Cultivating Stress Resilience and Adventist: Don't let stress take the wheel! In a world filled with demands and stressors, prioritizing self-care through restorative activities is paramount. Activities such as meditation, guided imagery, breathing techniques, gratitude journaling, and mindfulness have been proven to not only calm the mind but also promote physical healing. During your health coaching session, you will acquire invaluable skills that empower you to not only manage stress but thrive! Collaborate with the health coaching team to develop a resilience plan. Devices to Consider ( Consider utilizing [employer] Uretim Neuro, a wearable device that uses new technology to retrain the brain and focus on nervous system reduction. Learn more about this technology by visiting: (dyg-vyf-duncy) https://[employer]/ Another valuable tool to explore is the Heart Rate Variability BioFeedback Tool (www.heartmath.org). The Research and Resources tabs on the website provide insights into the research behind this tool. You can use it as an celsa on your smartphone. To use the technology, you will need to purchase a sensor that plugs right into your phone (approximately $100). Start by getting one of the HeartMath booklets from [employer] that corresponds to your 'go-to' emotion, such as Transforming Anger, Anxiety, Stress, Depression, or PTSD. Five minutes, three times a day, is more effective than 15 minutes inone sitting. Engaging in regular, daily meditation practice for at least 15-20 minutes can bring about positive changes in your brain and genes. Preliminary studies indicate that gene expression is modified in individuals who meditate regularly, resulting in reduced inflammation and improved response to stress.While further research is needed, these findings suggest a definite role for meditation in treatingand preventing chronic inflammatory conditions. Consider the following smartphone apps to begin a meditative practice: Headspace (free for the first 10 days) Insight Meditation Timer (Free) - A versatile celsa for guided meditations of various types and lengths, as well as a tool to time and track your meditation practice. Calm (Free) Walking Meditations ($1.99) - Combine your walk and meditation in one. A great starting point for individuals who struggle with sitting still during meditation. Vagal Tone Explore the work of the following providers on harnessing the relaxation response. Choose the one that resonates with you: Polyvagal theory (Wero Tilley) - https://www.[employer].QuizFortune/ Dynamic Neural Retraining System (EmeliVir2us) - https://[employer]/WoowUp/ Mccall Program (Eliceo Mccall) - https://www.[employer]/ Allocate dedicated time for yourself (without multitasking) to focus on breathing and relaxation techniques. Work on cultivating yvonne! Follow-up: Please schedule a follow-up visit, either in-person or virtually, with the following caregivers: Provider: 4 months Dry Cleaning Teacher: 3 to 4 weeks after initial visit for individual session to incorporate labs Health Precision Lens Grinder Apprentice: 2 weeks to 4 weeks to set up if needing support to set and maintain realistic goals on this journey. Referrals Health Coaching: Please schedule an appointment with your Health Precision Lens Grinder Apprentice within the next two weeks to develop a personalized lifestyle plan. You can reach us at to schedule. Behavioral Health Therapist: If I recommend counseling or individual therapy, please [facility] after your visit today. Our Behavioral Health Therapist can help you identify and understand your emotions and behaviors, guide you through the processof positive change, and provide you with healthy coping skills. They specialize in both traditionaland holistic psychotherapy. Over the next 6-8 weeks, we will focus on your discussed diet plan, aiming for gentle detoxification and reducing inflammation. Meanwhile, we will gather your lab results and combine them with your complete medical history to create a highly personalized treatment plan. Lyn Mckeon MD Time spent with patient: I spent a total of 45 minutes on the date of the service which included preparing to see the patient, [id number] patient care, completing clinical documentation, obtaining and/or reviewing separately obtained history, performing a medically appropriate examination, counseling and educating the pat ient/family/caregiver, ordering medications, tests, or procedures, independently interpreting results (not separately reported), communicating results to the patient/family/caregiver, and care coordination (not separately reported). [facility] NoteHNO ID: [id number] Author: ASHLEY ROBERSON MD Service: ? Author Type: Physician Type: Progress Notes Filed: 10/22/2024 17:25 Note Text: Reason for Visit Follow up HPI Fiona Gruber is a 84-year-old female with a history of hypercholesterolemia, hypothyroidism, and dementia, presenting for evaluation of multiple concerns, accompanied by a family member who is providing history on behalf of Fiona. Fiona has a wart that was previously biopsied and confirmed to be benign. She inquires about the possibility of cryotherapy for removal. She also reports experiencing nocturnal leg cramps, which she believes are related to inadequate hydration. She has been increasing her water intake, consuming water with breakfast and lunch, but notes that her intake is still not substantial. She denies daily episodes of loose stools, but mentions occasional occurrences. Fiona is currently taking a stool softener and inquires about the proper timing of administration in relation to meals. She is also on Namenda, which she takes BID, and receives Prolia injections every 6 months. She denies any issues with these medications. Fiona has been experiencing dyspnea with prolonged ambulation, which she attributes to forgetting to breathe. She also has episodes of nocturnal crying, which she describes as a way to cope with emotional distress. She expresses a desire to return to her childhood home in [place] and frequently thinks about her younger sister, who lives there. She reports feeling confused about her current residence and misses her family. She also mentions feeling isolated when her family is outside, especially in hot weather, but states that she does not mind being alone as long as it is not for extended periods. Fiona's family member notes that she has been wetting her Depends more frequently. Recent laboratory results from 2 months ago show normal cholesterol and thyroid levels. Social History Tobacco Use Smoking status: Never Smokeless tobacco: Never Vaping Use Vaping status: Never Used Substance Use Topics Alcohol use: Yes Comment: Occasionally wine Drug use: No Past medical history, appointments, medications, allergies reviewed. Pertinent Lab/Diagnostic Studies are reviewed and discussed today Current Outpatient Medications: levothyroxine (SYNTHROID) 25 mcg tablet memantine (NAMENDA) 10 mg tablet cholestyramine (QUESTRAN) 4 gram packet donepezil (ARICEPT) 10 mg tablet colestipol (COLESTID) 1 gram tablet escitalopram oxalate (LEXAPRO) 10 mg tablet memantine (NAMENDA) 10 mg/5 mL oral liquid Current Facility-Administered Medications: denosumab 60 mg injection (PROLIA) Health Maintenance Bone Density Screening Advance Directive Discussion Medicare Advantage Annual Wellness Visit Covid-19 Vaccine()@ Review Of Systems Respiratory: (+) dyspnea on exertion Gastrointestinal: (+) intermittent diarrhea Genitourinary: (+) urinary incontinence Musculoskeletal: (+) nocturnal cramps Skin: (+) cutaneous wart Neurological: (+) confusion Psychiatric: (+) crying spells Physical Exam BP 117/76 Pulse 91 Resp 16 Wt 58.7 kg (129 lb 6.4 oz) SpO2 98% BMI 22.21 kg/m? GENERAL: NAD, alert and oriented SKIN: unremarkable, no rash or skin lesions. HEAD: normocephalic EYES: PERRLA, EOMI, conjunctiva clear EARS: external ears normal, canals clear, TM's normal. LUNGS: Clear to auscultation bilaterally, no wheezes/rhonchi/rales. HEART: Regular rate and rhythm, no murmurs. No ectopy. NEURO: Awake, alert and oriented x3, cranial nerves II-XII grossly intact, normal gait, no involuntary motions Labs: - Cholesterol test: Normal - Thyroid function test: Normal Tests: - Skin lesion biopsy: Benign wart Assessment and Plan 1. Depression, unspecified depression type (F32.A) Experiencing crying spells in the evening and night. - Initiated Lexapro to be taken at night. - Transmitted prescription to [facility]. - If no improvement, will consider trial of Zoloft. 2. Hypothyroidism, acquired (E03.9) Thyroid function tests were normal two months ago. 3. Essential hypertension (I10) Blood pressure readings are slightly elevated. - Recheck blood pressure. 4. Dementia without behavioral disturbance (HCC) (F03.90) Memory remains unchanged; requires prompting. Expresses desire to return to previous home and family, indicating some confusion about current residence. - Continue current management. 5. Muscle cramp (R25.2) Experiencing nocturnal muscle cramps. - Discontinue Crestor for 3 months to assess if it is contributing to muscle cramps. Voice recognition software was used to compose this office note. Please excuse any unintended typographical errors. Recording using [employer] software for draft documentation of the visit was discussed with the patient/authorized sales representative sales manager; all questions welcomed and answered. Patient/autho (more content not included)...[facility] 10-22-2024 History of Present illness Narrative* Ashley Roberson MD - 10/22/2024 5:23 PM EDT Reason for Visit Follow up HPI Fiona Gruber is a 84-year-old female with a history of hypercholesterolemia, hypothyroidism, and dementia, presenting for evaluation of multiple concerns, accompanied by a family member who is providing history on behalf of Fiona. Fiona has a wart that was previously biopsied and confirmed to be benign. She inquires about the possibility of cryotherapy for removal. She also reports experiencing nocturnal leg cramps, which she believes are related to inadequate hydration. She has been increasing her water intake, consuming water with breakfast and lunch, but notes that her intake is still not substantial. She denies daily episodes of loose stools, but mentions occasional occurrences. Fiona is currently taking a stool softener and inquires about the proper timing of administration in relation to meals. She is also on Namenda, which she takes BID, and receives Prolia injections every 6 months. She denies any issues with these medications. Fiona has been experiencing dyspnea with prolonged ambulation, which she attributes to forgetting to breathe. She also has episodes of nocturnal crying, which she describes as a way to cope with emotional distress. She expresses a desire to return to her childhood home in [place] and frequently thinks about her younger sister, who lives there. She reports feeling confused about her current residence and misses her family. She also mentions feeling isolated when her family is outside, especially in hot weather, but states that she does not mind being alone as long as it is not for extendedperiods. Fiona's family member notes that she has been wetting her Depends more frequently. Recent laboratory results from 2 months ago show normal cholesterol and thyroid levels. Social History Tobacco Use Smoking status: Never Smokeless tobacco: Never Vaping Use Vaping status: Never Used Substance Use Topics Alcohol use: Yes Comment: Occasionally wine Drug use: No Past medical history, appointments, medications, allergies reviewed. Pertinent Lab/Diagnostic Studies are reviewed and discussed today Current Outpatient Medications: levothyroxine (SYNTHROID) 25 mcg tablet memantine (NAMENDA) 10 mg tablet cholestyramine (QUESTRAN) 4 gram packet donepezil (ARICEPT) 10 mg tablet colestipol (COLESTID) 1 gram tablet escitalopram oxalate (LEXAPRO) 10 mg tablet memantine (NAMENDA) 10 mg/5 mL oral liquid Current Facility-Administered Medications: denosumab 60 mg injection (PROLIA) Health Maintenance Bone Density Screening Advance Directive Discussion Medicare Advantage Annual Wellness Visit Covid-19 Vaccine()@ Review Of Systems Respiratory: (+) dyspnea on exertion Gastrointestinal: (+) intermittent diarrhea Genitourinary: (+) urinary incontinence Musculoskeletal: (+) nocturnal cramps Skin: (+) cutaneous wart Neurological: (+) confusion Psychiatric: (+) crying spells Physical Exam BP 117/76 Pulse 91 Resp 16 Wt 58.7 kg (129 lb 6.4 oz) SpO2 98% BMI 22.21 kg/m GENERAL: NAD, alert and oriented SKIN: unremarkable, no rash or skin lesions. HEAD: normocephalic EYES: PERRLA, EOMI, conjunctiva clear EARS: external ears normal, canals clear, TM's normal. LUNGS: Clear to auscultation bilaterally, no wheezes/rhonchi/rales. HEART: Regular rate and rhythm, no murmurs. No ectopy. NEURO: Awake, alert and oriented x3, cranial nerves II-XII grossly intact, normal gait, no involuntary motions Labs: - Cholesterol test: Normal - Thyroid function test: Normal Tests: - Skin lesion biopsy: Benign wart Assessment and Plan 1. Depression, unspecified depression type (F32.A) Experiencing crying spells in the evening and night. - Initiated Lexapro to be taken at night. - Transmitted prescription to [facility]. - If no improvement, will consider trial of Zoloft. 2. Hypothyroidism, acquired (E03.9) Thyroid function tests were normal two months ago. 3. Essential hypertension (I10) Blood pressure readings are slightly elevated. - Recheck blood pressure. 4. Dementia without behavioral disturbance (HCC) (F03.90) Memory remains unchanged; requires prompting. Expresses desire to return to previous home and family, indicating some confusion about current residence. - Continue current management. 5. Muscle cramp (R25.2) Experiencing nocturnal muscle cramps. - Discontinue Crestor for 3 months to assess if it is contributing to muscle cramps. Voice recognition software was used to compose this office note. Please excuse any unintended typographical errors. Recording using [employer] software for draft documentation of the visit was discussed with the patient/authorized sales representative sales manager; all questions welcomed and answered. Patient/authorized sales representative sales manager agreed to proceed \ Ashley Roberson MD documented in this encounterM[facility]07-[facility]25 Instructions* Patient Instructions* Ashley Roberson MD - 10/22/2024 4:33 PM EDT We discussed several concerns and made adjustments to your care plan: 1. Crying Spells and Mood: - I prescribed Lexapro (10 mg once daily) to help with your crying spells. Please take this at night. The prescription has been sent to [facility]. - If Lexapro does not help, we will consider switching to Zoloft. 2. Cramps at Night: - Your nighttime cramps may be related to Crestor. We will stop Crestor for 3 months to see if the cramps improve. Let us know if the cramps persist or worsen. 3. Shortness of Breath: - You mentioned experiencing shortness of breath when walking. Please monitor this and let us know if it worsens or becomes more frequent. 4. Runny Stool: - Occasional runny stool is normal. Continue staying hydrated by drinking water with meals. 5. Blood Pressure: - Your blood pressure was slightly elevated today. We will recheck it at your next visit. 6. Prolia Injection: - You are due for your Prolia injection every 6 months. Your last injection was administered at [place]. Please ensure you stay on schedule for this treatment. 7. Cholesterol and Thyroid: - Your cholesterol and thyroid levels were checked 2 months ago and are within normal limits. No further action is needed at this time. 8. Namenda: - Continue taking Namenda twice daily as prescribed. It is okay to take it with or without food. Please monitor your symptoms and let us know if there are any changes or concerns. We will follow up on your blood pressure and the effects of stopping Crestor at your next visit. documented in this encounterM[facility]07-01-2025 Telephone encounter Note * Telephone Encounter - Kelley Reyes - 10/07/2024 8:11 AM EDT Prescription Refill Information The patient has been identified by name and date of : Yes Caregiver verified no other encounters exist for this prescription request: Yes Caregiver confirmed with patient/requestor that no other refills are due, in the near future, with this provider at this time: Yes The last office visit in the department: 09/30/24 Does the patient have a future office visit with this provider/department: Yes Requested Prescriptions Pending Prescriptions Disp Refills levothyroxine (SYNTHROID) 25 mcg tablet 90 tablet 3 Sig: Take 1 tablet by mouth once daily. rosuvastatin (CRESTOR) 10 mg tablet 90 tablet 3 Sig: Take 1 tablet by mouth daily at bedtime. Please re-submit to correct Pharmacy: [facility] October 07, 2024 8:11 AM [facility]07-01[facility] Miscellaneous Notes* Telephone Encounter - Kelley Reyes - 10/07/2024 8:11 AM EDT Prescription Refill Information The patient has been identified by name and date of : Yes Caregiver verified no other encounters exist for this prescription request: Yes Caregiver confirmed with patient/requestor that no other refills are due, in the near future, with this provider at this time: Yes The last office visit in the department: 09/30/24 Does the patient have a future office visit with this provider/department: Yes Requested Prescriptions Pending Prescriptions Disp Refills levothyroxine (SYNTHROID) 25 mcg tablet 90 tablet 3 Sig: Take 1 tablet by mouth once daily. rosuvastatin (CRESTOR) 10 mg tablet 90 tablet 3 Sig: Take 1 tablet by mouth daily at bedtime. Please re-submit to correct Pharmacy: [facility] October 07, 2024 8:11 AM * Telephone Encounter - Izabella Nunez - 09/29/2024 8:24 AM EDT Prescription Refill Information The patient has been identified by name and date of : Yes Caregiver verified no other encounters exist for this prescription request: Yes Caregiver confirmed with patient/requestor that no other refills are due, in the near future, with this provider at this time: Yes The last office visit in the department: 08-20-23 Does the patient have a future office visit with this provider/department: Yes Requested Prescriptions Pending Prescriptions Disp Refills rosuvastatin (CRESTOR) 10 mg tablet 90 tablet 3 Sig: Take 1 tablet by mouth daily at bedtime. levothyroxine (SYNTHROID) 25 mcg tablet 90 tablet 3 Sig: Take 1 tablet by mouth once daily. Izabella Nunez September 29, 2024 8:26 AM documented in this encounterMckitrick [facility]06-24-2025 NoteHNO ID: [id number] Author: KRISTIN DEAN APRN.MARCELA Service: ? Author Type: Nurse Practitioner Type: Progress Notes Filed: 09/30/2024 14:00 Note Text: CC: Patient presents with: Wart: RT hand x 6 months HPI Fiona Gruber is a 84 year old female who presents today for above. Skin lesion present for six months. Has tried numerous OTC treatments without effect. Lesion seems to be getting larger. Denies pain, drainage, itching. Denies history of skin cancer. BP 132/84 Pulse 100 Resp 12 Wt 59.3 kg (130 lb 11.7 oz) SpO2 99% BMI 22.44 kg/m? Physical Exam Vitals reviewed. Constitutional: Appearance: Normal appearance. Musculoskeletal: Arms: Neurological: Mental Status: She is alert. ASSESSMENT/PLAN: 1. Skin lesion of hand - ICD9: 709.9, ICD10: L98.9 Differentials include squamous cell carcinoma, actinic keratosis, viral wart. Recommend referral to dermatology for further evaluation and possible skin biopsy. Patient agreeable, prefers to stay local at [facility]. Order faxed and patient was given phone number to call and schedule. I spent a total of 20 minutes on the date of the service which included preparing to see the patient, nvjt-uq-lcha patient care, completing clinical documentation, performing a medically appropriate examination, and counseling and educating the patient/family/caregiver. Prescription instructions reviewed with patient as applicable. Potential red flag symptoms discussed with the patient. Reviewed appropriate action plan to take if red flag symptoms occur. Patient agreeable to treatment plan. Kristin Dean APRN.[facility] History of Present illness Narrative* Kristin Dean APRN.MARCELA - 09/30/2024 1:42 PM EDT Images from the original note were not included. CC: Patient presents with: Wart: RT hand x 6 months HPI Fiona Gruber is a 84 year old female who presents today for above. Skin lesion present for six months. Has tried numerous OTC treatments without effect. Lesion seems to be getting larger. Denies pain, drainage, itching. Denies history of skin cancer. BP 132/84 Pulse 100 Resp 12 Wt 59.3 kg (130 lb 11.7 oz) SpO2 99% BMI 22.44 kg/m Physical Exam Vitals reviewed. Constitutional: Appearance: Normal appearance. Musculoskeletal: Arms: Neurological: Mental Status: She is alert. ASSESSMENT/PLAN: 1. Skin lesion of hand - ICD9: 709.9, ICD10: L98.9 Differentials include squamous cell carcinoma, actinic keratosis, viral wart. Recommend referral todermatology for further evaluation and possible skin biopsy. Patient agreeable, prefers to stay local at [facility]. Order faxed and patient was given phone number to call and schedule. I spent a total of 20 minutes on the date of the service which included preparing to see the patient, ypjh-ec-glla patient care, completing clinical documentation, performing a medically appropriate examination, and counseling and educating the patient/family/caregiver. Prescription instructions reviewed with patient as applicable. Potential red flag symptoms discussed with the patient. Reviewed appropriate action plan to take if red flag symptoms occur. Patient agreeable to treatment plan. Kristin Dean APRN.CNP documented in this encounterMckitrick Hospital06-24-2025 Instructions* Patient Instructions* Kristin Dean APRN.CNP - 09/30/2024 1:42 PM EDT [facility] dermatology [phone] documented in this encounterMckitrick Hospital06-23-2025 Instructions* Patient Instructions* Lilia Vazquez APRN.CLASSIFICATION AND TREATMENT DIRECTOR - 09/29/2024 12:34 PM EDT - Stop using hydrogen peroxide on your belly button. - Clean the area gently with soap and water, then dry completely with a towel. - Apply the triple-antibiotic ointment provided to the sore area. - If you feel the urge to pick or dig at it, cover the area with dry gauze - The soreness should clear up in a few days, let us know if not continuing to improve documented in this encounterMckitrick Hospital06-23-2025 History of Present illness Narrative* Lilia Vazquez APRN.CNS - 09/29/2024 12:00 PM EDT Subjective Patient ID: Fiona is a 84 year old female who presents for inflammed navel. HPI Fiona Gruber is an 84-year-old female presenting with umbilical soreness and a wart on the back ofher hand. Umbilical Soreness: - Onset 2-3 weeks ago. - Noticed soreness after a particularly hot day. - No pruritus or malodor. - Applied peroxide to the area. - Denies any recent trauma or injury to the area. Wart on Hand: - Located on the back of the hand. - Has attempted to remove it multiple times using ofdx-uck-vqrmslg treatments without success. - Occasionally gets caught on clothing due to its protrusion. ROS Skin: (+) hand lesion, (-) umbilical pain, (-) pruritus, (-) umbilical discharge Objective BP 147/83 Pulse 94 Resp 16 Physical Exam Vitals and nursing note reviewed. Constitutional: Appearance: Normal appearance. HENT: Head: Normocephalic and atraumatic. Eyes: Conjunctiva/sclera: Conjunctivae normal. Cardiovascular: Rate and Rhythm: Normal rate. Pulmonary: Effort: Pulmonary effort is normal. Skin: General: Skin is warm and dry. Comments: Erythema and scant serous drainage present, proximal greater than distal at umbilicus. Noinduration or warmth. Wart anterior surface right hand Neurological: General: No focal deficit present. Mental Status: She is alert and oriented to person, place, and time. 1. Umbilicus discharge (R19.8) - Mild discomfort, not pruritic, no significant drainage or odor noted; has been applying hydrogen peroxide. - Advised to discontinue use of hydrogen peroxide due to its potential to irritate the skin. - Recommended cleaning the area with soap and water, ensuring thorough drying. - Prescribed application of triple antibiotic ointment to the umbilical area. - If factitious manipulation occurs, advised to cover the area with a dry gauze to prevent further irritation. 2. Common wart (B07.8) - Located on the back of the hand; previous attempts to remove with wgnw-vzg-xucwxvh treatments have been unsuccessful. - Scheduled for cryotherapy in the office to remove the wart. Lilia Vazquez APRN.CNS Medical Decision Making: Problems: Low: 2+ self-limited or minor problems Risk: Moderate: Drug management Medical Decision Making Level: 3 - Low documented in this encounterM[facility]itrick Hospital06-23-2025 NoteHNO ID: [id number] Author: LILIA VAZQUEZ APRN.CLASSIFICATION AND TREATMENT DIRECTOR Service: ? Author Type: Nurse Specialist Type: Progress Notes Filed: 09/29/2024 12:41 Note Text: Subjective Patient ID: Fiona is a 84 year old female who presents for inflammed navel. HPI Fiona Gruber is an 84-year-old female presenting with umbilical soreness and a wart on the back of her hand. Umbilical Soreness: - Onset 2-3 weeks ago. - Noticed soreness after a particularly hot day. - No pruritus or malodor. - Applied peroxide to the area. - Denies any recent trauma or injury to the area. Wart on Hand: - Located on the back of the hand. - Has attempted to remove it multiple times using ayjo-qmx-tgcruvn treatments without success. - Occasionally gets caught on clothing due to its protrusion. ROS Skin: (+) hand lesion, (-) umbilical pain, (-) pruritus, (-) umbilical discharge Objective BP 147/83 Pulse 94 Resp 16 Physical Exam Vitals and nursing note reviewed. Constitutional: Appearance: Normal appearance. HENT: Head: Normocephalic and atraumatic. Eyes: Conjunctiva/sclera: Conjunctivae normal. Cardiovascular: Rate and Rhythm: Normal rate. Pulmonary: Effort: Pulmonary effort is normal. Skin: General: Skin is warm and dry. Comments: Erythema and scant serous drainage present, proximal greater than distal at umbilicus. No induration or warmth. Wart anterior surface right hand Neurological: General: No focal deficit present. Mental Status: She is alert and oriented to person, place, and time. 1. Umbilicus discharge (R19.8) - Mild discomfort, not pruritic, no significant drainage or odor noted; has been applying hydrogen peroxide. - Advised to discontinue use of hydrogen peroxide due to its potential to irritate the skin. - Recommended cleaning the area with soap and water, ensuring thorough drying. - Prescribed application of triple antibiotic ointment to the umbilical area. - If factitious manipulation occurs, advised to cover the area with a dry gauze to prevent further irritation. 2. Common wart (B07.8) - Located on the back of the hand; previous attempts to remove with zaia-cpf-xydndst treatments have been unsuccessful. - Scheduled for cryotherapy in the office to remove the wart. Lilia Vazquez APRN.CLASSIFICATION AND TREATMENT DIRECTOR Medical Decision Making: Problems: Low: 2+ self-limited or minor problems Risk: Moderate: Drug management Medical Decision Making Level: 3 - LowChildren[facility]06-23-2025 Telephone encounter Note* Telephone Encounter - Izabella Nunez - 09/29/2024 8:24 AM EDT Prescription Refill Information The patient has been identified by name and date of : Yes Caregiver verified no other encounters exist for this prescription request: Yes Caregiver confirmed with patient/requestor that no other refills are due, in the near future, with this provider at this time: Yes The last office visit in the department: 08-20-23 Does the patient have a future office visit with this provider/department: Yes Requested Prescriptions Pending Prescriptions Disp Refills rosuvastatin (CRESTOR) 10 mg tablet 90 tablet 3 Sig: Take 1 tablet by mouth daily at bedtime. levothyroxine (SYNTHROID) 25 mcg tablet 90 tablet 3 Sig: Take 1 tablet by mouth once daily. Izabella Nunez September 29, 2024 8:26 AM [facility] Telephone encounter Note* Telephone Encounter - Nikki Higgins MA - 09/12/2024 9:27 AM EDT The following approved medication requests have been transmitted electronically. Requested Prescriptions Signed Prescriptions Disp Refills memantine (NAMENDA) 10 mg tablet 60 tablet 3 Sig: Take 1 tablet by mouth two times a day. Authorizing Provider: ASHLEY ROBERSON MA [facility]06-06-2025 Miscellaneous Notes* Telephone Encounter - Nikki Higgins MA - 09/12/2024 9:27 AM EDT The following approved medication requests have been transmitted electronically. Requested Prescriptions Signed Prescriptions Disp Refills memantine (NAMENDA) 10 mg tablet 60 tablet 3 Sig: Take 1 tablet by mouth two times a day. Authorizing Provider: ASHLEY ROBERSON MA * Telephone Encounter - Radha Mario RN - 09/11/2024 4:29 PM EDT Spouse returns call and messages below reviewed. Spouse reports that patient would be able to take medication in applesauce crushed and requests that prescription be sent to [facility]. Radha Mario RN * Telephone Encounter - Mary Omalley RPh - 09/11/2024 10:28 AM EDT Images from the original note were not included. Using a GoodRx coupon, she could get a 360 mL bottle of memantine 2mg/mL (36 day supply) for ~$144 at [facility]. A 3 month supply would be ~$432. That is still very expensive, but would this be affordable for the patient? [facility] coupon: I noticed on the med list that she takes some pills. Any chance she would be able to take [id number] tablets and take those if they were crushed and mixed with applesauce? That would be the most economical option if possible. Mary Omalley, Arian, [facility] Primary Care Clinical Pharmacist * Telephone Encounter - Ashley Roberson MD - 09/10/2024 4:42 PM EDT Unfortunately none that we know of I will ask my pharmacist to see if she has any ideas Regards, [facility], Memantine is costing them 600 dollars. Is there anything we can give that would not cost as much to the patient? Regards, Ashley Roberson MD * Telephone Encounter - Shanell Lyles LPN - 09/10/2024 1:54 PM EDT Patient Dong calling since the PA for Memantine was denied. said it would cost almost 6 hundred dollars for a 90 day rx, asking if there is another medication that would not be so costly? Patient uses [facility] for [facility]. Please advise documented in this encounterM[facility]06-05-2025 Telephone encounter Note * Telephone Encounter - Radha Mario RN - 09/11/2024 4:29 PM EDT Spouse returns call and messages below reviewed. Spouse reports that patient would be able to take medication in applesauce crushed and requests that prescription be sent to [facility]. Radha Mario RN [facility]06-05-2025 Telephone encounter Note* Telephone Encounter - Mary Omalley RP - 09/11/2024 10:28 AM EDT Images from the original note were not included. Using a GoodRx coupon, she could get a 360 mL bottle of memantine 2mg/mL (36 day supply) for ~$144 at [facility]. A 3 month supply would be ~$432. That is still very expensive, but would this be affordable for the patient? [facility] coupon: I noticed on the med list that she takes some pills. Any chance she would be able to take [id number] tablets and take those if they were crushed and mixed with applesauce? That would be the most economical option if possible. Mary Omalley, PharmD, [facility] Primary Care Clinical Pharmacist [facility] Work Phone: [phone] Telephone encounter Note* Telephone Encounter - Ashley Roberson MD - 09/10/2024 4:42 PM EDT Unfortunately none that we know of I will ask my pharmacist to see if she has any ideas Regards, [facility], Memantine is costing them 600 dollars. Is there anything we can give that would not cost as much to the patient? Regards, Ashley Roberson MD [facility]06-04-2025 Telephone encounter Note* Telephone Encounter - Shanell Lyles LPN - 09/10/2024 1:54 PM EDT Patient Dong calling since the PA for Memantine was denied. said it would cost almost 6 hundred dollars for a 90 day rx, asking if there is another medication that would not be so costly? Patient uses [facility] for [facility]. Please advise [facility]06-03-[facility] Telephone encounter Note* Telephone Encounter - Angelique Trevino LPN - 09/09/2024 2:55 PM EDT Fax rec'd and yes it was denied. Denial is in scanned documents. [facility]-03-[facility] Miscellaneous Notes* Telephone Encounter - Angelique Trevino LPN - 09/09/2024 2:55 PM EDT Fax rec'd and yes it was denied. Denial is in scanned documents. * Telephone Encounter - Radha Mario RN - 09/09/2024 2:30 PM EDT Spouse calls to report that he was contacted by insurance to let them know that the request has been denied for memantine. Spouse aware that we are waiting on faxed response. Radha Mario RN * Telephone Encounter - Angelique Trevino LPN - 09/09/2024 9:41 AM EDT Called [facility]. They report the memantine is a tier 4. They do not know the cost if the tier reduction is decreased to a tier 3. Clinical questions reviewed over the phone. They report 24-72 hours for review. They will fax response to the office and call and mail results to pt. This case number is [id number]. * Telephone Encounter - Shannan Santos LPN - 09/09/2024 8:59 AM EDT Pt's calls to report that Namenda 10 mg/5 ml is a Tier 5 and the cost is $1,000 a month. Insurance advised that they would split the cost so pt's portion would be $500 a month. reports that is still too expensive. Insurance advised if dr would call: [phone] and speak to insurance that [facility] and then would cost $110. is asking if office will do this. PRIOR AUTHORIZATION Medication for Prior Authorization: Namenda Other formulary meds available : unknown Insurance Company: [employer] phone number: [phone] Patient insurance ID number: [id number] Shannan Santos LPN documented in this encounterMckitrick Hospital06-03-2025 Telephone encounter Note * Telephone Encounter - Radha Mario RN - 09/09/2024 2:30 PM EDT Spouse calls to report that he was contacted by insurance to let them know that the request has been denied for memantine. Spouse aware that we are waiting on faxed response. Radha Mario RN [facility]06-03-[facility] Telephone encounter Note* Telephone Encounter - Angelique Trevino LPN - 09/09/2024 9:41 AM EDT Called [facility]. They report the memantine is a tier 4. They do not know the cost if the tier reduction is decreased to a tier 3. Clinical questions reviewed over the phone. They report 24-72 hours for review. They will fax response to the office and call and mail results to pt. This case number is [id number]. [facility]-03-[facility] Telephone encounter Note* Telephone Encounter - Shannan Santos LPN - 09/09/2024 8:59 AM EDT Pt's calls to report that Namenda 10 mg/5 ml is a Tier 5 and the cost is $1,000 a month. Insurance advised that they would split the cost so pt's portion would be $500 a month. reports that is still too expensive. Insurance advised if dr would call: [phone] and speak to insurance [facility] then would [facility]. is asking if office will do this. PRIOR AUTHORIZATION Medication for Prior Authorization: Namenda Other formulary meds available : unknown Insurance Company: [employer] phone number: [phone] Patient insurance ID number: [id number] Shannan Santos LPN [facility]06-02-2025 Telephone encounter Note* Telephone Encounter - Tsering Loo MA - 09/08/2024 3:14 PM EDT Faxed to [facility]. [facility]06-02-2025 Miscellaneous Notes* Telephone Encounter - Tsering Loo MA - 09/08/2024 3:14 PM EDT Faxed to [facility]. * Telephone Encounter - Yvonne Valente APRN.CNP - 09/08/2024 3:12 PM EDT Please fax namenda prescription to [facility] as our system will not eprescribe this. Thank you Yvonne Valente APRN.CNP [facility] Telephone encounter Note * Telephone Encounter - Yvonne Valente APRN.CNP - 09/08/2024 3:12 PM EDT Please fax namenda prescription to [facility] as our system will not eprescribe this. Thank you Yvonne Valente APRN.CNP [facility]06-02-2025 Telephone encounter Note* Telephone Encounter - Nery Knight - 09/08/2024 8:42 AM EDT Prescription Refill Information The patient has been identified by name and date of : Yes Caregiver verified no other encounters exist for this prescription request: Yes Caregiver confirmed with patient/requestor that no other refills are due, in the near future, with this provider at this time: Yes The last office visit in the department: 08/19/2024 Does the patient have a future office visit with this provider/department: Yes Requested Prescriptions Pending Prescriptions Disp Refills memantine (NAMENDA) 10 mg/5 mL oral liquid 900 mL 3 Siml po twice daily cholestyramine (QUESTRAN) 4 gram packet 90 packet 2 Sig: Take 1 packet by mouth three times a day with meals. Nery Goyal September 08, 2024 8:47 AM [facility]06-02-2025 Miscellaneous Notes* Telephone Encounter - Nery Knight - 09/08/2024 8:42 AM EDT Prescription Refill Information The patient has been identified by name and date of : Yes Caregiver verified no other encounters exist for this prescription request: Yes Caregiver confirmed with patient/requestor that no other refills are due, in the near future, with this provider at this time: Yes The last office visit in the department: 08/19/2024 Does the patient have a future office visit with this provider/department: Yes Requested Prescriptions Pending Prescriptions Disp Refills memantine (NAMENDA) 10 mg/5 mL oral liquid 900 mL 3 Siml po twice daily cholestyramine (QUESTRAN) 4 gram packet 90 packet 2 Sig: Take 1 packet by mouth three times a day with meals. Nery Goyal September 08, 2024 8:47 AM documented in this encounterM[facility]25 NoteHNO ID: [id number] Author: ASHLEY ROBERSON MD Service: ? Author Type: Physician Type: Progress Notes Filed: 08/19/2024 11:06 Note Text: Reason for Visit Fall HPI Fiona is a 84-year-old female, with a history of dementia, presenting for evaluation after a fall from bed. Fiona fell from her goodwin-sized bed at approximately 0330 on Sunday night. She reports attempting to sit up on the edge of the bed but scooted too far, resulting in a fall onto her side. She landed on her hand and then her head, with her head reportedly hitting the shelf of the nightstand. She denies loss of consciousness and was able to recall the event. She denies current cephalalgia but reports a sore spot on the side of her head, particularly above the ears. She also reports pain in her hand, which she attributes to the fall. She denies any visible bruising on her head. Fiona has a history of knee pain, which she reports has been worsening. She has had partial knee replacements in the past, which provided temporary relief. She also reports chronic neck pain, which is exacerbated by cold weather. She uses a neck covering at home to keep warm. Fiona has a history of diarrhea, for which she is taking cholestyramine powder once daily in the morning. She reports that the medication has been effective in managing her symptoms, but she experienced episodes of diarrhea recently despite not missing any doses. She also takes Namenda 5 mL twice daily for dementia. She denies any changes in her cognitive function since the fall. Fiona has ordered a bed rail to prevent future falls and is trying to sleep in the center of the bed to avoid getting too close to the edge. She also wears a life alert system for fall detection. Social History Tobacco Use Smoking status: Never Smokeless tobacco: Never Vaping Use Vaping status: Never Used Substance Use Topics Alcohol use: Yes Comment: Occasionally wine Drug use: No Past medical history, appointments, medications, allergies reviewed. Pertinent Lab/Diagnostic Studies are reviewed and discussed today Current Outpatient Medications: donepezil (ARICEPT) 10 mg tablet levothyroxine (SYNTHROID) 25 mcg tablet rosuvastatin (CRESTOR) 10 mg tablet cholestyramine (QUESTRAN) 4 gram packet colestipol (COLESTID) 1 gram tablet memantine (NAMENDA) 10 mg/5 mL oral liquid ubidecarenone/vitamin E mixed (COQ10 SG 100 ORAL) Ascorbic Acid (VITAMIN C) powd acetaminophen (TYLENOL) 325 mg tablet Current Facility-Administered Medications: denosumab 60 mg injection (PROLIA) Health Maintenance Bone Density Screening Advance Directive Discussion Covid-19 Vaccine( season)@ Review Of Systems Head: (+) head injury, (-) headache Neck: (+) neck pain Gastrointestinal: (+) diarrhea Musculoskeletal: (+) knee pain, (+) hand pain, (+) shoulder pain Neurological: (+) memory impairment, (+) balance difficulty Physical Exam BP 110/73 Pulse 102 Ht 162.6 cm (5' 4) Wt 59.9 kg (132 lb) SpO2 97% BMI 22.66 kg/m? GENERAL: NAD, alert and oriented. SKIN: Unremarkable, no rash or skin lesions. HEAD: Normocephalic, tenderness noted above the ears. EYES: PERRLA, EOMI, conjunctiva clear. EARS: External ears normal, canals clear, TM's normal. NOSE/SINUSES: Nares normal. Septum midline. OROPHARYNX: Lips, mucosa, and tongue normal, good dentition. No oral lesions noted. NECK: Supple, no lymphadenopathy, normal thyroid, no carotid bruits. LUNGS: Clear to auscultation bilaterally, no wheezes/rhonchi/rales. HEART: Regular rate and rhythm, no murmurs. No ectopy. EXTREMITIES: Normal, no deformities, no skin discoloration, no edema. NEURO: Awake, alert and oriented x3, cranial nerves II-XII grossly intact, normal gait, no involuntary motions. Labs: - Thyroid function test: Normal - Cholesterol: Normal Assessment and Plan 1. Fall, sequela (W19.XXXS) Contusion of scalp, sequela (S00.03XS) Recent fall from bed on Sunday night at 0330, resulting in a contusion on the scalp. No current headache reported, but tenderness noted above the ears. No fractures or significant injuries observed on physical examination. - Ordered CT scan of the head to rule out intracranial bleeding. - Monitor for any development of headaches or neurological changes; instructed to report immediately if these occur. - Bed rail to be installed on to prevent future falls. 2. Balance disorder (R26.89) Difficulty with balance noted, contributing to recent fall. No significant abnormalities observed on physical examination. - Continue monitoring balance and mobility. - Consider referral to physical therapy if balance issues persist or worsen. 3. Essential hypertension (I10) Blood pressure management not discussed in detail during this visit. 4. Dementia without behavioral disturbance (HCC) (F03.90) Currently managed with Aricept and Namenda 10 mg (5 mL) twice daily. No sign (more content not included)...[facility]05-13-2025 History of Present illness Narrative* Ashley Roberson MD - 08/19/2024 10:58 AM EDT Reason for Visit Fall HPI Fiona is a 84-year-old female, with a history of dementia, presenting for evaluation after a fall from bed. Fiona fell from her goodwin-sized bed at approximately 0330 on Sunday night. She reports attempting to sit up on the edge of the bed but scooted too far, resulting in a fall onto her side. She landed on her hand and then her head, with her head reportedly hitting the shelf of the nightstand. She denies loss of consciousness and was able to recall the event. She denies current cephalalgia but reports a sore spot on the side of her head, particularly above the ears. She also reports pain in her hand, which she attributes to the fall. She denies any visible bruising on her head. Fiona has a history of knee pain, which she reports has been worsening. She has had partial knee replacements in the past, which provided temporary relief. She also reports chronic neck pain, which is exacerbated by cold weather. She uses a neck covering at home to keep warm. Fiona has a history of diarrhea, for which she is taking cholestyramine powder once daily in the morning. She reports that the medication has been effective in managing her symptoms, but she experienced episodes of diarrhea recently despite not missing any doses. She also takes Namenda 5 mL twice daily for dementia. She denies any changes in her cognitive function since the fall. Fiona has ordered a bed rail to prevent future falls and is trying to sleep in the center of the bed to avoid getting too close to the edge. She also wears a life alert system for fall detection. Social History Tobacco Use Smoking status: Never Smokeless tobacco: Never Vaping Use Vaping status: Never Used Substance Use Topics Alcohol use: Yes Comment: Occasionally wine Drug use: No Past medical history, appointments, medications, allergies reviewed. Pertinent Lab/Diagnostic Studies are reviewed and discussed today Current Outpatient Medications: donepezil (ARICEPT) 10 mg tablet levothyroxine (SYNTHROID) 25 mcg tablet rosuvastatin (CRESTOR) 10 mg tablet cholestyramine (QUESTRAN) 4 gram packet colestipol (COLESTID) 1 gram tablet memantine (NAMENDA) 10 mg/5 mL oral liquid ubidecarenone/vitamin E mixed (COQ10 SG 100 ORAL) Ascorbic Acid (VITAMIN C) powd acetaminophen (TYLENOL) 325 mg tablet Current Facility-Administered Medications: denosumab 60 mg injection (PROLIA) Health Maintenance Bone Density Screening Advance Directive Discussion Covid-19 Vaccine( season)@ Review Of Systems Head: (+) head injury, (-) headache Neck: (+) neck pain Gastrointestinal: (+) diarrhea Musculoskeletal: (+) knee pain, (+) hand pain, (+) shoulder pain Neurological: (+) memory impairment, (+) balance difficulty Physical Exam BP 110/73 Pulse 102 Ht 162.6 cm (5' 4) Wt 59.9 kg (132 lb) SpO2 97% BMI 22.66 kg/m GENERAL: NAD, alert and oriented. SKIN: Unremarkable, no rash or skin lesions. HEAD: Normocephalic, tenderness noted above the ears. EYES: PERRLA, EOMI, conjunctiva clear. EARS: External ears normal, canals clear, TM's normal. NOSE/SINUSES: Nares normal. Septum midline. OROPHARYNX: Lips, mucosa, and tongue normal, good dentition. No oral lesions noted. NECK: Supple, no lymphadenopathy, normal thyroid, no carotid bruits. LUNGS: Clear to auscultation bilaterally, no wheezes/rhonchi/rales. HEART: Regular rate and rhythm, no murmurs. No ectopy. EXTREMITIES: Normal, no deformities, no skin discoloration, no edema. NEURO: Awake, alert and oriented x3, cranial nerves II-XII grossly intact, normal gait, no involuntary motions. Labs: - Thyroid function test: Normal - Cholesterol: Normal Assessment and Plan 1. Fall, sequela (W19.XXXS) Contusion of scalp, sequela (S00.03XS) Recent fall from bed on Sunday night at 0330, resulting in a contusion on the scalp. No current headache reported, but tenderness noted above the ears. No fractures or significant injuries observed on physical examination. - Ordered CT scan of the head to rule out intracranial bleeding. - Monitor for any development of headaches or neurological changes; instructed to report immediately if these occur. - Bed rail to be installed on to prevent future falls. 2. Balance disorder (R26.89) Difficulty with balance noted, contributing to recent fall. No significant abnormalities observed on physical examination. - Continue monitoring balance and mobility. - Consider referral to physical therapy if balance issues persist or worsen. 3. Essential hypertension (I10) Blood pressure management not discussed in detail during this visit. 4. Dementia without behavioral disturbance (HCC) (F03.90) Currently managed with Aricept and Namenda 10 mg (5 mL) twice daily. No significant changes in cognitive function observed post-fall. - Continue current medication regimen. - Monitor for any changes in cognitive function. 5. Diarrhea, unspecified type (R19.7) Intermittent episodes of diarrhea, managed with cholestyramine powder once daily. Recent increase in frequency and severity of episodes. - Increase cholestyramine to twice daily during episodes of watery stools. - Monitor stool consistency and frequency. Voice recognition software was used to compose this office note. Please excuse any unintended typographical errors. Recording using ambient eyeOS software for draft documentation of the visit was discussed with the patient/authorized sales representative sales manager; all questions welcomed and answered. Patient/authorized sales representative sales manager agreed to proceed Ashley Roberson MD documented in this encounterM[facility] Instructions* Patient Instructions* Ashley Roberson MD - 08/19/2024 10:22 AM EDT We discussed your recent fall: - You fell out of bed on Sunday night, landing on your side and hitting your head. You do not have a headache or any signs of a serious injury at this time. - I examined you and found no evidence of fractures or significant injuries. Your joints, shoulders, and neck appear to be fine, and there is no pain with movement. - If you develop a headache, confusion, dizziness, or any other concerning symptoms, please let me know immediately, as we may need to perform a CT scan of your head to rule out internal bleeding. - A bed rail has been ordered and will arrive soon. This will help prevent future falls and providesupport when getting in and out of bed. Please use it once it is installed. We discussed your diarrhea: - Continue taking the cholestyramine (Questran) powder once daily in the morning. - If your stools become very loose or watery, you may increase the dose to twice daily until symptoms improve, then return to once daily. - Let me know if your diarrhea persists or worsens despite these adjustments. We discussed your medications: - Continue taking Namenda (memantine) 5 mL twice daily as prescribed. - If you need a refill, I can provide it for you. We discussed your knee pain: - Your knees continue to bother you, likely due to your history of partial knee replacements. If the pain worsens or becomes unmanageable, let me know so we can explore additional treatment options. Follow-Up: - Please monitor for any new or worsening symptoms, especially after your fall. Contact me if you experience a headache, confusion, or other concerning changes. - Adjust your cholestyramine dose as needed based on your symptoms, and let me know if you have anyissues. - If you have any questions or concerns, please call our office. documented in this encounterM[facility]04[facility]25 NotePatient Outreach (INTMMN) FIONA GRUBER ([id number]) 1940 F T Date Time Provider Department 08/05/24 ASHLEY ROBERSON INTMMN During your visit today, we recorded the following information about you: Allergies As of Date: 08/05/2024 Noted Allergy Reaction AMOXICILLIN 05/04/2005 4 - Hives Comments: GI upset OXYCODONE 07/12/2021 8 - GI Upset PENICILLINS 11/11/2018 4 - Hives SEASONAL ALLERGIES 07/07/2021 9 - Itching Comments: Fall Date Reviewed: 07/17/2024 Reviewed by: Patti Oakes LPN - Fully Assessed Visit Diagnoses:Mixed hyperlipidemia [E78.2] Hypothyroidism, acquired [E03.9] Order(s):LIPID PANEL, FASTING [SQLIPB] Order #: [id number] FUTURE THYROID STIMULATING HORMONE [SQTSH] Order #: [id number] FUTURE Prescriptions as of 08/08/2024 - donepezil (ARICEPT) 10 mg tablet Take 1 tablet by mouth daily after breakfast. - levothyroxine (SYNTHROID) 25 mcg tablet Take 1 tablet by mouth once daily. - rosuvastatin (CRESTOR) 10 mg tablet Take 1 tablet by mouth daily at bedtime. - cholestyramine (QUESTRAN) 4 gram packet Take 1 Packet by mouth three times a day with meals. - colestipol (COLESTID) 1 gram tablet Take 1 tablet by mouth two times a day. - memantine (NAMENDA) 10 mg/5 mL oral liquid 5ml po twice daily - ubidecarenone/vitamin E mixed (COQ10 SG 100 ORAL) Take 1 tablet by mouth once daily. - Ascorbic Acid (VITAMIN C) powd Take 1 Each by mouth once daily. - acetaminophen (TYLENOL) 325 mg tablet Take 2 tablets by mouth every 4 hours as needed for pain (acute post operative pain). Facility-Administered Medications as of 08/08/2024 - denosumab 60 mg injection (PROLIA) Meds Comments as of 03/08/2015: Ebony Zamora Problem List As Of Date 08/05/2024 Noted Resolved Age-related osteoporosis without current pathol*02/06/2005 Dysmetabolic syndrome X [E88.810] 07/10/2006 03/08/2017 Spastic Colitis [K58.9] 02/24/2009 Diarrhea [R19.7] 04/12/2009 03/08/2016 Secondary hyperparathyroidism (HCC) [N25.81] 08/02/2010 03/08/2017 Vaginal dryness [N89.8] 11/26/2013 11/30/2014 Vitamin D deficiency [E55.9] 01/19/2014 Postmenopausal atrophic vaginitis [N95.2] 11/30/2014 Osteopenia [M85.80] 03/08/2015 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] 03/08/2015 Essential tremor [G25.0] 03/08/2016 Hypercalcemia [E83.52] 03/13/2018 08/25/2019 High vitamin D level [E67.3] 03/13/2018 Rotator cuff arthropathy of both shoulders [M12*09/20/2018 Essential hypertension [I10] 08/18/2019 CKD (chronic kidney disease), stage III (HCC) [*08/18/2019 DEMETRA (acute kidney injury) (HCC) [N17.9] 08/18/2019 08/25/2019 Vitamin B 12 deficiency [E53.8] 08/18/2019 08/25/2019 Fatigue [R53.83] 11/18/2019 Elevated LFTs [R79.89] 11/18/2019 Mold exposure [Z77.120] 11/18/2019 B-complex deficiency [E53.9] 01/29/2020 Essential fatty acid (EFA) deficiency [E63.0] 01/29/2020 Exposure to mercury [Z77.018] 01/29/2020 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 Dementia without behavioral disturbance (HCC) [*02/20/2020 Hypothyroidism, acquired [E03.9] 05/22/2020 Abnormal finding on thyroid function test [R94.*03/31/2021 Acute confusion [R41.0] 03/31/2021 Osteopenia determined by x-ray [M85.80] 03/31/2021 Vitamin D toxicity [T45.2X1A] 03/31/2021 Cerebral amyloid angiopathy (CODE) [I68.0] 06/06/2021 Cerebral microvascular disease [I67.89] 06/09/2021 Closed nondisplaced fracture of sixth cervical *06/22/2021 Closed nondisplaced fracture of seventh cervica*06/22/2021 Closed fracture of transverse process of cervic*06/22/2021 Fall [W19.XXXA] 06/22/2021 06/22/2021 C6 cervical fracture (HCC) [S12.500A] 07/07/2021 At high risk for fracture [Z91.89] 01/23/2023 Balance disorder [R26.89] 07/17/2023 Encounter Status:Closed by EPIC, PRODUSER on 08/08/24[facility] 07-17-2024 Instructions* Patient Instructions* Ashley Roberson MD - 07/17/2024 11:29 AM EDT We discussed your diarrhea: - Continue taking colestipol as needed to manage diarrhea. It appears to be helping when taken consistently. - Avoid large quantities of cheese, as this may be contributing to your symptoms. For example, broccoli and cheese soup or pizza with multiple types of cheese may worsen diarrhea. - If you choose to eat pizza, request light cheese or a single type of cheese. Alternatively, consider making homemade pizza with minimal cheese. - If you experience constipation after reducing cheese intake, you may stop taking colestipol. We discussed your memory and cognitive health: - I am increasing your Aricept dose from 5 mg to 10 mg daily. - Until the 10 mg tablets arrive, you may double your current 5 mg tablets to achieve the new dose. - Take this medication after breakfast. - The prescription has been sent to [facility] for mail delivery. We discussed your overall health: - Your blood pressure is well-controlled. - Your heart rate is slightly elevated but not concerning at this time. Follow-up: - I will see you back in 3 months for a follow-up visit. documented in this encounterM[facility]04-10-[facility]25 NoteHNO ID: [id number] Author: ASLHEY ROBERSON MD Service: ? Author Type: Physician Type: Progress Notes Filed: 07/17/2024 11:35 Note Text: Reason for Visit Diarrhea HPI Fiona is a 84-year-old female with a history of HTN, balance disorder, MTHFR gene mutation, hypothyroidism, osteoporosis, and CAA, presenting for follow-up on chronic diarrhea. Fiona has been experiencing chronic diarrhea, and was started on colestipol during the last visit. She reports that the medication has been effective in reducing the frequency of loose stools. However, she notes that she missed two doses recently, which coincided with episodes of loose stools, including one today prior to the visit. She denies any accidents and uses a pad for protection. Fiona has been consuming a diet that includes cheese, and her caregiver suspects that large quantities of cheese may be contributing to the diarrhea. She also reports occasional forgetfulness and asks about appointments multiple times. She is currently taking Aricept 5 mg and Namenda in liquid form, and her caregiver reports that she is tolerating these medications well. She engages in activities such as attending [employer] and singing, and plans to visit her sister for lunch today. Social History Tobacco Use Smoking status: Never Smokeless tobacco: Never Vaping Use Vaping status: Never Used Substance Use Topics Alcohol use: Yes Comment: Occasionally wine Drug use: No Past medical history, appointments, medications, allergies reviewed. Pertinent Lab/Diagnostic Studies are reviewed and discussed today Current Outpatient Medications: levothyroxine (SYNTHROID) 25 mcg tablet rosuvastatin (CRESTOR) 10 mg tablet cholestyramine (QUESTRAN) 4 gram packet colestipol (COLESTID) 1 gram tablet memantine (NAMENDA) 10 mg/5 mL oral liquid ubidecarenone/vitamin E mixed (COQ10 SG 100 ORAL) donepezil (ARICEPT) 10 mg tablet Ascorbic Acid (VITAMIN C) powd acetaminophen (TYLENOL) 325 mg tablet Current Facility-Administered Medications: denosumab 60 mg injection (PROLIA) Health Maintenance Bone Density Screening Advance Directive Discussion Covid-19 Vaccine( season)@ Review Of Systems Gastrointestinal: (+) diarrhea, (+) constipation Neurological: (+) forgetfulness Physical Exam BP 118/78 Pulse 102 Ht 162.6 cm (5' 4) Wt 59 kg (130 lb) SpO2 99% BMI 22.31 kg/m? GENERAL: NAD, alert and oriented SKIN: unremarkable, no rash or skin lesions. HEAD: normocephalic EYES: PERRLA, EOMI, conjunctiva clear EARS: external ears normal, canals clear, TM's normal. NOSE/SINUSES: Nares normal. Septum midline. OROPHARYNX: lips, mucosa, and tongue normal, good dentition. No oral lesions noted. NECK: Supple, no lymphadenopathy, normal thyroid, no carotid bruits. LUNGS: Clear to auscultation bilaterally, no wheezes/rhonchi/rales. HEART: Regular rate and rhythm, no murmurs. No ectopy. EXTREMITIES: Normal, No deformities, No skin discoloration, No edema. NEURO: Awake, alert and oriented x3, cranial nerves II-XII grossly intact, normal gait, no involuntary motions Labs: - Stool test for Clostridium difficile: Negative - WBC: Negative Assessment and Plan 1. 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 Dietary intake includes significant amounts of cheese, which may contribute to symptoms. - Continue colestipol as needed. - Advised reducing large quantities of cheese in the diet to potentially decrease diarrhea episodes. 2. Moderate late onset Alzheimer's dementia without behavioral disturbance, psychotic disturbance, mood disturbance, or anxiety (HCC) (G30.1) Currently managed with Aricept 5 mg and Namenda. Patient exhibits forgetfulness and repetitive questioning. - Increase Aricept to 10 mg daily; instructed to take after breakfast. - Sent prescription to [facility]. - Follow-up in 3 months. 3. Hypothyroidism, unspecified type (E03.9) Condition is stable. Voice recognition software was used to compose this office note. Please excuse any unintended typographical errors. The patient consented to the use of ambient eyeOS software for draft documentation of the visit consistent with [facility]?s Notice of Privacy Practices. Ashley Roberson [facility]04-10-2025 History of Present illness Narrative* Ashley Roberson MD - 07/17/2024 11:15 AM EDT Reason for Visit Diarrhea HPI Fiona is a 84-year-old female with a history of HTN, balance disorder, MTHFR gene mutation, hypothyroidism, osteoporosis, and CAA, presenting for follow-up on chronic diarrhea. Fiona has been experiencing chronic diarrhea, and was started on colestipol during the last visit. She reports that the medication has been effective in reducing the frequency of loose stools. However, she notes that she missed two doses recently, which coincided with episodes of loose stools, including one today prior to the visit. She denies any accidents and uses a pad for protection. Fiona has been consuming a diet that includes cheese, and her caregiver suspects that large quantities of cheese may be contributing to the diarrhea. She also reports occasional forgetfulness and asks about appointments multiple times. She is currently taking Aricept 5 mg and Namenda in liquid form, and her caregiver reports that sheis tolerating these medications well. She engages in activities such as attending [employer] and singing, and plans to visit her sister for lunch today. Social History Tobacco Use Smoking status: Never Smokeless tobacco: Never Vaping Use Vaping status: Never Used Substance Use Topics Alcohol use: Yes Comment: Occasionally wine Drug use: No Past medical history, appointments, medications, allergies reviewed. Pertinent Lab/Diagnostic Studies are reviewed and discussed today Current Outpatient Medications: levothyroxine (SYNTHROID) 25 mcg tablet rosuvastatin (CRESTOR) 10 mg tablet cholestyramine (QUESTRAN) 4 gram packet colestipol (COLESTID) 1 gram tablet memantine (NAMENDA) 10 mg/5 mL oral liquid ubidecarenone/vitamin E mixed (COQ10 SG 100 ORAL) donepezil (ARICEPT) 10 mg tablet Ascorbic Acid (VITAMIN C) powd acetaminophen (TYLENOL) 325 mg tablet Current Facility-Administered Medications: denosumab 60 mg injection (PROLIA) Health Maintenance Bone Density Screening Advance Directive Discussion Covid-19 Vaccine( season)@ Review Of Systems Gastrointestinal: (+) diarrhea, (+) constipation Neurological: (+) forgetfulness Physical Exam BP 118/78 Pulse 102 Ht 162.6 cm (5' 4) Wt 59 kg (130 lb) SpO2 99% BMI 22.31 kg/m GENERAL: NAD, alert and oriented SKIN: unremarkable, no rash or skin lesions. HEAD: normocephalic EYES: PERRLA, EOMI, conjunctiva clear EARS: external ears normal, canals clear, TM's normal. NOSE/SINUSES: Nares normal. Septum midline. OROPHARYNX: lips, mucosa, and tongue normal, good dentition. No oral lesions noted. NECK: Supple, no lymphadenopathy, normal thyroid, no carotid bruits. LUNGS: Clear to auscultation bilaterally, no wheezes/rhonchi/rales. HEART: Regular rate and rhythm, no murmurs. No ectopy. EXTREMITIES: Normal, No deformities, No skin discoloration, No edema. NEURO: Awake, alert and oriented x3, cranial nerves II-XII grossly intact, normal gait, no involuntary motions Labs: - Stool test for Clostridium difficile: Negative - WBC: Negative Assessment and Plan 1. 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 Dietary intake includes significant amounts of cheese, which may contribute to symptoms. - Continue colestipol as needed. - Advised reducing large quantities of cheese in the diet to potentially decrease diarrhea episodes. 2. Moderate late onset Alzheimer's dementia without behavioral disturbance, psychotic disturbance, mood disturbance, or anxiety (HCC) (G30.1) Currently managed with Aricept 5 mg and Namenda. Patient exhibits forgetfulness and repetitive questioning. - Increase Aricept to 10 mg daily; instructed to take after breakfast. - Sent prescription to [facility]. - Follow-up in 3 months. 3. Hypothyroidism, unspecified type (E03.9) Condition is stable. Voice recognition software was used to compose this office note. Please excuse any unintended typographical errors. The patient consented to the use of ambient eyeOS software for draft documentation of the visit consistent with [facility] s Notice of Privacy Practices. Ashley Roberson MD documented in this encounterM[facility]03-17-2025 NoteHNO ID: [id number] Author: ?, ?, ? Service: ? Author Type: LICENSED NURSE Type: Progress Notes Filed: 06/23/2024 10:45 Note Text: Patient presents for Prolia injection. Denies any problems at this time. Patient instructed on any SE of medication, verbalized understanding and agreed to proceed with treatment. Tolerated injection well. [facility] History of Present illness Narrative* KAILEE CASTILLO - 06/23/2024 10:38 AM EDT Patient presents for Prolia injection. Denies any problems at this time. Patient instructed on any SE of medication, verbalized understanding and agreed to proceed with treatment. Tolerated injectionwell. Kailee Castillo LPN documented in this encounterM[facility]03-06-2025 Telephone encounter Note * Telephone Encounter - Marian Freeman - 06/12/2024 10:51 AM EST Patient is now using [facility] and will need both meds sent for 90 days with 3 refills. [facility]03-06-2025 Miscellaneous Notes* Telephone Encounter - Marian Freeman - 06/12/2024 10:51 AM EST Patient is now using [facility] and will need both meds sent for 90 days with 3 refills. * Telephone Encounter - Marian Freeman - 06/12/2024 10:49 AM EST Prescription Refill Information The patient has been identified by name and date of : Yes Caregiver verified no other encounters exist for this prescription request: Yes Caregiver confirmed with patient/requestor that no other refills are due, in the near future, with this provider at this time: Yes The last office visit in the department: 05-13-24 Does the patient have a future office visit with this provider/department: Yes Requested Prescriptions Pending Prescriptions Disp Refills levothyroxine (SYNTHROID) 25 mcg tablet 30 tablet 0 Sig: Take 1 tablet by mouth once daily. rosuvastatin (CRESTOR) 10 mg tablet 90 tablet 3 Sig: Take 1 tablet by mouth daily at bedtime. Marian Ansari June 12, 2024 10:50 AM documented in this encounterM[facility] Hospital03-06-2025 Telephone encounter Note * Telephone Encounter - Marian Freeman - 06/12/2024 10:49 AM EST Prescription Refill Information The patient has been identified by name and date of : Yes Caregiver verified no other encounters exist for this prescription request: Yes Caregiver confirmed with patient/requestor that no other refills are due, in the near future, with this provider at this time: Yes The last office visit in the department: 05-13-24 Does the patient have a future office visit with this provider/department: Yes Requested Prescriptions Pending Prescriptions Disp Refills levothyroxine (SYNTHROID) 25 mcg tablet 30 tablet 0 Sig: Take 1 tablet by mouth once daily. rosuvastatin (CRESTOR) 10 mg tablet 90 tablet 3 Sig: Take 1 tablet by mouth daily at bedtime. Marian Ansari June 12, 2024 10:50 AM [facility]02-28-2025 Telephone encounter Note* Telephone Encounter - Jacinta Arevalo RN - 06/06/2024 3:16 PM EST Prescription Refill Information The patient has been identified by name and date of : Yes Caregiver verified no other encounters exist for this prescription request: Yes Caregiver confirmed with patient/requestor that no other refills are due, in the near future, with this provider at this time: Yes The last office visit in the department: Does the patient have a future office visit with this provider/department: Yes Requested Prescriptions Pending Prescriptions Disp Refills levothyroxine (SYNTHROID) 25 mcg tablet 30 tablet 0 Sig: Take 1 tablet by mouth once daily. patient is needing a short term rx sent to local pharmacy due to awaiting mail order Jacinta Arevalo RN June 06, 2024 3:16 PM [facility]02-28-2025 Miscellaneous Notes* Telephone Encounter - Jacinta Arevalo RN - 06/06/2024 3:16 PM EST Prescription Refill Information The patient has been identified by name and date of : Yes Caregiver verified no other encounters exist for this prescription request: Yes Caregiver confirmed with patient/requestor that no other refills are due, in the near future, with this provider at this time: Yes The last office visit in the department: Does the patient have a future office visit with this provider/department: Yes Requested Prescriptions Pending Prescriptions Disp Refills levothyroxine (SYNTHROID) 25 mcg tablet 30 tablet 0 Sig: Take 1 tablet by mouth once daily. patient is needing a short term rx sent to local pharmacy due to awaiting mail order Jacinta Arevalo RN June 06, 2024 3:16 PM documented in this encounterMckitrick Hospital02-28-2025 Telephone encounter Note * Telephone Encounter - Paty Schreiber LPN - 06/06/2024 9:45 AM EST Prescription Refill Information The patient has been identified by name and date of : Yes Caregiver verified no other encounters exist for this prescription request: Yes The last office visit in the department: 12/28/23 Assessment and Plan: ASSESSMENT/PLAN: 1. Dementia without behavioral disturbance, psychotic disturbance, mood disturbance, or anxiety, unspecified dementia severity, unspecified dementia type (HCC) - ICD9: 294.20, ICD10: F03.90 (primary diagnosis) 2. Cerebral amyloid angiopathy (CODE) - ICD9: 277.39, 437.9, ICD10: I68.0 Patient with cognitive decline, of which definite etiology unknown. Pt with evidence of CAA on MRI brain, but also question if second process such as neurodegenerative dementia (I.e. Alzheimer's disease) given family history of Alzheimer's and pattern of atrophy on MRI brain. Patient also to some extent has responded to both Aricept and Namenda. Ddx d/w pt and her family. D/w them more invasive means of testing including CSF evaluation, although likely would not change treatment as given evidence of CAA, pt would be high risk for hemorrhage with use of infusion type therapies if Alzheimer's disease was to be confirmed. We discussed treatment and will continue Namenda and Aricpet as pt taking with reminding them of possible SEs and ADRs. Encouraged brain exercises. As pt has been seen by CV in past, do not see benefit in repeat follow up. However, we did discuss avoiding all meds that could increase risk of hemorrhage including NSAIDs and anticoagulation. At the moment not on antiplt and would need to discuss safety in event antiplt therapy would be a necessity (I.e. MO). They agree with plan. All testing reviewed with pt and family. Follow up in Spring 2024. In meantime pt should not be driving or operating heavy machinery. Pt receiving essentially 24 hour care from family. 3. Balance disorder - ICD9: 781.99, ICD10: R26.89 4. Ataxia - ICD9: 781.3, ICD10: R27.0 5. Recurrent falls - ICD9: V15.88, ICD10: R29.6 6. History of recent traumatic injury of head - ICD9: V15.52, ICD10: Z87.820 7. History of cervical fracture - ICD9: V15.51, ICD10: Z87.81 Like cognition, likely multifactorial including CAA and C spine injuries in the past. Overall doingbetter with increased activity and use of assist device. With no new deficits on neuro exam, will continue to monitor. Encouraged continued use of assist device. Reviewed MRI C spine images with family. No additional recs at this time, but if progresses will then refer to PT. Follow up as above. Myrna Plata MD Does the patient have a future office visit with this provider/department: NO Requested Prescriptions Pending Prescriptions Disp Refills donepezil (ARICEPT) 5 mg tablet 90 tablet 3 Sig: Take 1 tablet by mouth daily with breakfast. Paty Schreiber LPN June 06, 2024 9:45 AM [facility]02-28-2025 Miscellaneous Notes* Telephone Encounter - Paty Schreiber LPN - 06/06/2024 9:45 AM EST Prescription Refill Information The patient has been identified by name and date of : Yes Caregiver verified no other encounters exist for this prescription request: Yes The last office visit in the department: 12/28/23 Assessment and Plan: ASSESSMENT/PLAN: 1. Dementia without behavioral disturbance, psychotic disturbance, mood disturbance, or anxiety, unspecified dementia severity, unspecified dementia type (HCC) - ICD9: 294.20, ICD10: F03.90 (primary diagnosis) 2. Cerebral amyloid angiopathy (CODE) - ICD9: 277.39, 437.9, ICD10: I68.0 Patient with cognitive decline, of which definite etiology unknown. Pt with evidence of CAA on MRI brain, but also question if second process such as neurodegenerative dementia (I.e. Alzheimer's disease) given family history of Alzheimer's and pattern of atrophy on MRI brain. Patient also to some extent has responded to both Aricept and Namenda. Ddx d/w pt and her family. D/w them more invasive means of testing including CSF evaluation, although likely would not change treatment as given evidence of CAA, pt would be high risk for hemorrhage with use of infusion type therapies if Alzheimer's disease was to be confirmed. We discussed treatment and will continue Namenda and Aricpet as pt taking with reminding them of possible SEs and ADRs. Encouraged brain exercises. As pt has been seen by CV in past, do not see benefit in repeat follow up. However, we did discuss avoiding all meds that could increase risk of hemorrhage including NSAIDs and anticoagulation. At the moment not on antiplt and would need to discuss safety in event antiplt therapy would be a necessity (I.e. MO). They agree with plan. All testing reviewed with pt and family. Follow up in Spring 2024. In meantime pt should not be driving or operating heavy machinery. Pt receiving essentially 24 hour care from family. 3. Balance disorder - ICD9: 781.99, ICD10: R26.89 4. Ataxia - ICD9: 781.3, ICD10: R27.0 5. Recurrent falls - ICD9: V15.88, ICD10: R29.6 6. History of recent traumatic injury of head - ICD9: V15.52, ICD10: Z87.820 7. History of cervical fracture - ICD9: V15.51, ICD10: Z87.81 Like cognition, likely multifactorial including CAA and C spine injuries in the past. Overall doingbetter with increased activity and use of assist device. With no new deficits on neuro exam, will continue to monitor. Encouraged continued use of assist device. Reviewed MRI C spine images with family. No additional recs at this time, but if progresses will then refer to PT. Follow up as above. Myrna Plata MD Does the patient have a future office visit with this provider/department: NO Requested Prescriptions Pending Prescriptions Disp Refills donepezil (ARICEPT) 5 mg tablet 90 tablet 3 Sig: Take 1 tablet by mouth daily with breakfast. Paty Schreiber LPN June 06, 2024 9:45 AM documented in this encounterM[facility]02-21-2025 Telephone encounter Note * Telephone Encounter - Chuy Nguyen RN - 05/30/2024 11:24 AM EST Faxed bone density orders to [facility] per request. Reports it's suppose to be done at the same place each time and patient's last one was done at [facility]. [facility]02-21-2025 Miscellaneous Notes* Telephone Encounter - Chuy Nguyen RN - 05/30/2024 11:24 AM EST Faxed bone density orders to [facility] per request. Reports it's suppose to be done at the same place each time and patient's last one was done at [facility]. documented in this encounterM[facility]it[facility] Hospital02-13-2025 Telephone encounter Note * Telephone Encounter - Patti Oakes LPN - 05/22/2024 3:28 PM EST Faxed orders and face sheet to [facility] radiology per patient spouse request. Patti Oakes LPN May 22, 2024 3:29 PM [facility]02-13-2025 Miscellaneous Notes* Telephone Encounter - Patti Oakes LPN - 05/22/2024 3:28 PM EST Faxed orders and face sheet to [facility] radiology per patient spouse request. Patti Oakes LPN May 22, 2024 3:29 PM * Telephone Encounter - Ena Martin - 05/22/2024 12:47 PM EST Spouse is requesting to have bone density order faxed to [facility]. Previous bone density scan was performed at their facility. Please fax to [phone]. documented in this encounterM[facility] Hospital02-13-2025 Telephone encounter Note * Telephone Encounter - Ena Martin - 05/22/2024 12:47 PM EST Spouse is requesting to have bone density order faxed to [facility]. Previous bone density scan was performed at their facility. Please fax to [phone]. [facility]02-04-2025 Telephone encounter Note* Telephone Encounter - Ashley Roberson MD - 05/13/2024 5:19 PM EST Discussed at office visit [facility] Work Phone: 1(863) 867-618502-04-2025 Miscellaneous Notes* Telephone Encounter - Ashley Roberson MD - 05/13/2024 5:19 PM EST Discussed at office visit * Telephone Encounter - Chevy Narayan RN - 05/12/2024 6:42 PM EST Pt and called and is notified of providers results and instructions. They voice understanding. Pts said she had diarrhea yesterday morning and this morning, right after she eats. Pt said it wasn't as runny, so the Colestipol must be helping. Chevy Narayan, RN * Telephone Encounter - Ashley Roberson MD - 05/12/2024 5:33 PM EST She has no infection and this could just be functional diarrhea possibly from some of her medications. Aricept could be 1 that is causing that. Did she have any improvement with the colestipol in terms of her stool consistency? Regards, Ashley Roberson MD * Telephone Encounter - Shannan Santos LPN - 05/12/2024 10:00 AM EST calls to report that pt has an appt 2/5 with de ionizer operator. reports pt submitted stool samples and those are resulted. is asking if pt still needs to see gastro on . Please review and advise. Shannan Santos LPN documented in this encounterM[facility]02-04-2025 Instructions* Patient Instructions* Ashley Roberson MD - 05/13/2024 11:27 AM EST Please take the colestipol once or twice a day as tolerated. If constipated, decrease as needed, to half once or twice. Start in the medication in morning and slowly add the evening Diet log Monitor the stool consistency when not having diarrhea documented in this encounterMckitrick Hospital02-04-2025 NoteHNO ID: [id number] Author: ASHLEY ROBERSON MD Service: ? Author Type: Physician Type: Progress Notes Filed: 05/13/2024 18:31 Note Text: Reason for Visit Patient presents with: Recheck: Bone density test Fiona Gruber is a 82 year old female who presents here today for Above Complaints.. Health Maintenance ADVANCE DIRECTIVE DISCUSSION HPI Fiona is 83-year-old woman with a past medical history of essential tremor, balance disorder, essential hypertension, MTHFR gene mutation, hypothyroidism, osteoporosis, CAA. Since the last time she saw me a lot has transpired. Since last visit diagnosed with osteoporosis and treated with Prolia, changed to Fosamax as it was thought Prolia may be causing worsening memory. Diagnosed with MTHFR mutation. Diagnosed with hypothyroidism and started on thyroxine. 10/30: Diarrhea: started a couple months ago, mostly in the night time, once is while she has it in the day. Watery and a lot of gas. Has not lost weight but gained some weight. No blood in diarrhea or changes in appetite She was started on aricept a couple months ago which she has been taking at night time, which coincides with her time line Leg cramps: has been having leg cramps at night , triggers seem to be dehydration. Has had it on and off for a long time but getting worse currently. Daughter started on magnesium. But levels was too high so that was stopped. She is using soap under her sheets, actually is putting it under sheets and he thinks it is helping her CAA: she is following up with Neurology. I wonder if diarrhea is a cause of the CAA> last year she had a cervical fracture post injury in a fall at home in June, she was taken to [facility] and they fused 6 vertebrae, had Physical Therapy at that time at [facility] for a week. Still has left hand numbness and jerky movements, neck does not hurt unless she is bent over a puzzle for a long time 04/25/24: notes diarrhea for the past 6 months or more, it happens once every 2 weeks, happens at night, so she has been using the depends now at night time. Watery and gassy, family member asked to use benefiber, but it has not helped much. This coincides with the time that she started aricept , notes that aricept definitely has helped her. Not clear if this is medication related, progression of dementia or organic issue going on. 05/13/2024: She has been having episodes of diarrhea, watery , brown, along with incontinence, since October 2023. There also is some urgency, can't wait to get to the restroom. It is not consistent, she is having diarrhea 3 times a week and sometimes once a week. The incontinence is a huge issue for patient and family. Last visit in evaluating this we did the C. difficile toxin and the fecal WBCs which were negative and have also given her colestipol but patient and family somehow missed taking the colestipol. Likely medication side effect. No problem-specific Assessment AND Plan notes found for this encounter. PAST MEDICAL HISTORY Diagnosis Date Age related osteoporosis DEMETRA (acute kidney injury) (HCC) 08/18/2019 Arthritis of both knees 03/08/2015 Diarrhea Diverticulosis of colon (without mention of hemorrhage) Essential tremor 03/08/2016 Hypercalcemia 03/13/2018 Hyperparathyroidism, unspecified (HCC) Hypothyroidism, acquired 05/22/2020 Irritable bowel syndrome Osteopenia Pill dysphagia Sciatica Secondary hyperparathyroidism (HCC) 08/02/2010 Vitamin B 12 deficiency 08/18/2019 Vitamin D deficiency 01/19/2014 PAST SURGICAL HISTORY Procedure Laterality Date ADENOIDECTOMY PRIMARY Adenoidectomy COLONOSCOPY FLX DX W/COLLJ SPEC WHEN PFRMD 08/19/1999 Colonoscopy COLONOSCOPY FLX DX W/COLLJ SPEC WHEN PFRMD 07/14/2009 Repeat in COLONOSCOPY FLX DX W/COLLJ SPEC WHEN PFRMD 09/30/2019 Colonoscopy NECK SURGERY HX 07/12/2021 C4-T2 Fusion and C5-7 Laminectomy PAST SURGICAL HISTORY OF Bilateral partial knee replacemenet TONSILLECTOMY PRIMARY/SECONDARY Tonsillectomy FAMILY HISTORY Problem Relation Age of Onset Arthritis Mother other (Dementia) Mother Heart Father [place], bi-pass surgery X-2/diabetes Headache Sister Thyroid Sister Calcium Disorder No Family History Social History Tobacco Use Smoking status: Never Smokeless tobacco: Never Vaping Use Vaping status: Never Used Substance Use Topics Alcohol use: Yes Comment: Occasionally wine Drug use: No Past medical history, appointments, medications, allergies reviewed. Pertinent Lab/Diagnostic Studies are reviewed and discussed today Current Outpatient Medications: colestipol (COLESTID) 1 gram tablet memantine (NAMENDA) 10 mg/5 mL oral liquid rosuvastatin (CRESTOR) 10 mg tablet ubidecarenone/vitamin E mixed (COQ10 SG 100 ORAL) donepezil (ARICEPT) 5 mg tablet levothyroxine (SYNTHROID) 25 mcg tablet levothyroxine (SYNTHROID) 25 mcg tablet Magnesium 2 (more content not included)...[facility]02-04-2025 History of Present illness Narrative* Ashley Roberson MD - 05/13/2024 11:00 AM EST Reason for Visit Patient presents with: Recheck: Bone density test Fiona Gruber is a 82 year old female who presents here today for Above Complaints.. Health Maintenance ADVANCE DIRECTIVE DISCUSSION HPI Fiona is 83-year-old woman with a past medical history of essential tremor, balance disorder, essential hypertension, MTHFR gene mutation, hypothyroidism, osteoporosis, CAA. Since the last time she saw me a lot has transpired. Since last visit diagnosed with osteoporosis and treated with Prolia, changed to Fosamax as it was thought Prolia may be causing worsening memory. Diagnosed with MTHFR mutation. Diagnosed with hypothyroidism and started on thyroxine. 10/30: Diarrhea: started a couple months ago, mostly in the night time, once is while she has it in the day. Watery and a lot of gas. Has not lost weight but gained some weight. No blood in diarrhea or changes in appetite She was started on aricept a couple months ago which she has been taking at night time, which coincides with her time line Leg cramps: has been having leg cramps at night , triggers seem to be dehydration. Has had it on and off for a long time but getting worse currently. Daughter started on magnesium. But levels was toohigh so that was stopped. She is using soap under her sheets, actually is putting it under sheets and he thinks it is helping her CAA: she is following up with Neurology. I wonder if diarrhea is a cause of the CAA> last year she had a cervical fracture post injury in a fall at home in June, she was taken to [facility] and they fused 6 vertebrae, had Physical Therapy at that time at [facility] for a week. Still has left hand numbness and jerky movements, neck does not hurt unless she is bent over a puzzle for a long time 04/25/24: notes diarrhea for the past 6 months or more, it happens once every 2 weeks, happens at night, so she has been using the depends now at night time. Watery and gassy, family member asked to use benefiber, but it has not helped much. This coincides with the time that she started aricept , notes that aricept definitely has helped her. Not clear if this is medication related, progression of dementia or organic issue going on. 05/13/2024: She has been having episodes of diarrhea, watery , brown, along with incontinence, since October 2023.There also is some urgency, can't wait to get to the restroom. It is not consistent, she is having diarrhea 3 times a week and sometimes once a week. The incontinence is a huge issue for patient and family. Last visit in evaluating this we did the C. difficile toxin and the fecal WBCs which were negative and have also given her colestipol but patient and family somehow missed taking the colestipol. Likely medication side effect. No problem-specific Assessment & Plan notes found for this encounter. PAST MEDICAL HISTORY Diagnosis Date Age related osteoporosis DEMETRA (acute kidney injury) (HCC) 08/18/2019 Arthritis of both knees 03/08/2015 Diarrhea Diverticulosis of colon (without mention of hemorrhage) Essential tremor 03/08/2016 Hypercalcemia 03/13/2018 Hyperparathyroidism, unspecified (HCC) Hypothyroidism, acquired 05/22/2020 Irritable bowel syndrome Osteopenia Pill dysphagia Sciatica Secondary hyperparathyroidism (HCC) 08/02/2010 Vitamin B 12 deficiency 08/18/2019 Vitamin D deficiency 01/19/2014 PAST SURGICAL HISTORY Procedure Laterality Date ADENOIDECTOMY PRIMARY <AGE 12 Adenoidectomy COLONOSCOPY FLX DX W/COLLJ SPEC WHEN PFRMD 08/19/1999 Colonoscopy COLONOSCOPY FLX DX W/COLLJ SPEC WHEN PFRMD 07/14/2009 Repeat in COLONOSCOPY FLX DX W/COLLJ SPEC WHEN PFRMD 09/30/2019 Colonoscopy NECK SURGERY HX 07/12/2021 C4-T2 Fusion and C5-7 Laminectomy PAST SURGICAL HISTORY OF Bilateral partial knee replacemenet TONSILLECTOMY PRIMARY/SECONDARY <AGE 12 Tonsillectomy FAMILY HISTORY Problem Relation Age of Onset Arthritis Mother other (Dementia) Mother Heart Father [place], bi-pass surgery X-2/diabetes Headache Sister Thyroid Sister Calcium Disorder No Family History Social History Tobacco Use Smoking status: Never Smokeless tobacco: Never Vaping Use Vaping status: Never Used Substance Use Topics Alcohol use: Yes Comment: Occasionally wine Drug use: No Past medical history, appointments, medications, allergies reviewed. Pertinent Lab/Diagnostic Studies are reviewed and discussed today Current Outpatient Medications: colestipol (COLESTID) 1 gram tablet memantine (NAMENDA) 10 mg/5 mL oral liquid rosuvastatin (CRESTOR) 10 mg tablet ubidecarenone/vitamin E mixed (COQ10 SG 100 ORAL) donepezil (ARICEPT) 5 mg tablet levothyroxine (SYNTHROID) 25 mcg tablet levothyroxine (SYNTHROID) 25 mcg tablet Magnesium 200 mg tab Ascorbic Acid (VITAMIN C) powd acetaminophen (TYLENOL) 325 mg tablet Current Facility-Administered Medications: [START ON 05/19/2024] denosumab 60 mg injection (PROLIA) Review of Systems CONSTITUTIONAL: No fevers, chills night sweats, unintended weight loss CARDIOVASCULAR: No chest pain, dyspnea, palpitations, orthopnea, PND, ankle edema. PULM: No dyspnea, unexplained cough. GI: No dysphagia/odynophagia, problematic reflux, constipation, diarrhea, changes in stool habits, hematochezia, melena. : No new urinary complaints, including dysuria, gross hematuria or pyuria. NEURO: No new balance problems, peripheral weakness/paresthesias or numbness of concern. Physical Exam BP 118/80 (BP Site: Right Arm) Pulse 106 Ht 162.6 cm (5' 4) Wt 59 kg (130 lb) SpO2 95% BMI 22.31 kg/m General appearance: Well appearing, alert, in no acute distress, well nourished. Skin: Skin color, texture, turgor normal, no suspicious rashes or lesions Head: Normocephalic, no masses, lesions, tenderness or abnormalities Eyes: Anicteric sclera. Pupils are equally round and reactive to light. Extraocular movements are intact. Lungs: Lungs clear to auscultation. No wheezing, rhonchi, rales Heart: RRR without murmur, gallop, or rubs. Extremities: No deformities, edema, skin discoloration, clubbing or cyanosis. Good capillary refill. Abdomen: soft, nondistended, nontender, no hepatosplenomegaly or masses, diffusely increased bowel sounds ASSESSMENT/PLAN: 1. Diarrhea, unspecified type - ICD9: 787.91, ICD10: R19.7 (primary diagnosis) Likely related to Aricept but it is helping her so trial of - COLESTIPOL 1 GRAM TABLET 2. Age related osteoporosis, unspecified pathological fracture presence - ICD9: 733.01, ICD10: M81.0 Follow-up bone density for her. - DXA-AXIAL SKELETON - BD DXA TRABECULAR BONE SCORE (TBS) Ashley Roberson MD [facility] Telephone encounter Note * Telephone Encounter - Chevy Narayan RN - 05/12/2024 6:42 PM EST Pt and called and is notified of providers results and instructions. They voice understanding. Pts said she had diarrhea yesterday morning and this morning, right after she eats. Pt said it wasn't as runny, so the Colestipol must be helping. Chevy Narayan RN [facility]02-03-2025 Telephone encounter Note* Telephone Encounter - Ashley Roberson MD - 05/12/2024 5:33 PM EST She has no infection and this could just be functional diarrhea possibly from some of her medications. Aricept could be 1 that is causing that. Did she have any improvement with the colestipol in terms of her stool consistency? Regards, Ashley Roberson MD [facility]02-03-2025 Telephone encounter Note* Telephone Encounter - Shannan Santos LPN - 05/12/2024 10:00 AM EST calls to report that pt has an appt 05/14 with de ionizer operator. reports pt submitted stool samples and those are resulted. is asking if pt still needs to see gastro on . Please review and advise. Shannan Santos LPN [facility]01-20-2025 Telephone encounter Note* Telephone Encounter - Sussy Shahid LPN - 04/28/2024 10:34 AM EST Spouse called in to request referral for GI be faxed to Dr. Sorensen. Done. Sussy Shahid LPN [facility]01-[facility] Miscellaneous Notes* Telephone Encounter - Sussy Shahid LPN - 04/28/2024 10:34 AM EST Spouse called in to request referral for GI be faxed to Dr. Sorensen. Eugenia. Sussy Shahid LPN documented [facility]01-[facility] Telephone encounter Note * Telephone Encounter - Teresa Caban RN - 04/25/2024 1:29 PM EST Vandana from [facility] calls and states that colestipol 5 gram packets have been discontinued by manufacture. Provider can order: the colestipol power suspension which comes with a scoop and each scoop is 5 grams. Bottles are 500grams which would be a 100 day supply. Colestipol 1 gram tablets. [facility] has both in stock. Teresa Caban RN [facility]01-[facility] Miscellaneous Notes* Telephone Encounter - Teresa Caban RN - 04/25/2024 1:29 PM EST Vandana from [facility] calls and states that colestipol 5 gram packets have been discontinued by manufacture. Provider can order: the colestipol power suspension which comes with a scoop and each scoop is 5 grams. Bottles are 500grams which would be a 100 day supply. Colestipol 1 gram tablets. [facility] has both in stock. Teresa Caban RN documented in this encounterM[facility]01-17-2025 NoteHNO ID: [id number] Author: ASHLEY ROBERSON MD Service: ? Author Type: Physician Type: Progress Notes Filed: 04/25/2024 13:02 Note Text: Reason for Visit Patient presents with: Diarrhea: Loose stool and incontinence Fiona Gruber is a 82 year old female who presents here today for Above Complaints.. Health Maintenance ADVANCE DIRECTIVE DISCUSSION HPI Fiona is 83-year-old woman with a past medical history of essential tremor, balance disorder, essential hypertension, MTHFR gene mutation, hypothyroidism, osteoporosis, CAA. Since the last time she saw me a lot has transpired. Since last visit diagnosed with osteoporosis and treated with Prolia, changed to Fosamax as it was thought Prolia may be causing worsening memory. Diagnosed with MTHFR mutation. Diagnosed with hypothyroidism and started on thyroxine. 10/30: Diarrhea: started a couple months ago, mostly in the night time, once is while she has it in the day. Watery and a lot of gas. Has not lost weight but gained some weight. No blood in diarrhea or changes in appetite She was started on aricept a couple months ago which she has been taking at night time, which coincides with her time line Leg cramps: has been having leg cramps at night , triggers seem to be dehydration. Has had it on and off for a long time but getting worse currently. Daughter started on magnesium. But levels was too high so that was stopped. She is using soap under her sheets, actually is putting it under sheets and he thinks it is helping her CAA: she is following up with Neurology. I wonder if diarrhea is a cause of the CAA> last year she had a cervical fracture post injury in a fall at home in June, she was taken to [facility] and they fused 6 vertebrae, had Physical Therapy at that time at [facility] for a week. Still has left hand numbness and jerky movements, neck does not hurt unless she is bent over a puzzle for a long time 04/25/24: notes diarrhea for the past 6 months or more, it happens once every 2 weeks, happens at night, so she has been using the depends now at night time. Watery and gassy, family member asked to use benefiber, but it has not helped much. This coincides with the time that she started aricept , notes that aricept definitely has helped her. Not clear if this is medication related, progression of dementia or organic issue going on. No problem-specific Assessment AND Plan notes found for this encounter. PAST MEDICAL HISTORY Diagnosis Date Age related osteoporosis DEMETRA (acute kidney injury) (HCC) 08/18/2019 Arthritis of both knees 03/08/2015 Diarrhea Diverticulosis of colon (without mention of hemorrhage) Essential tremor 03/08/2016 Hypercalcemia 03/13/2018 Hyperparathyroidism, unspecified (HCC) Hypothyroidism, acquired 05/22/2020 Irritable bowel syndrome Osteopenia Pill dysphagia Sciatica Secondary hyperparathyroidism (HCC) 08/02/2010 Vitamin B 12 deficiency 08/18/2019 Vitamin D deficiency 01/19/2014 PAST SURGICAL HISTORY Procedure Laterality Date ADENOIDECTOMY PRIMARY Adenoidectomy COLONOSCOPY FLX DX W/COLLJ SPEC WHEN PFRMD 08/19/1999 Colonoscopy COLONOSCOPY FLX DX W/COLLJ SPEC WHEN PFRMD 07/14/2009 Repeat in -2019 COLONOSCOPY FLX DX W/COLLJ SPEC WHEN PFRMD 09/30/2019 Colonoscopy NECK SURGERY HX 07/12/2021 C4-T2 Fusion and C5-7 Laminectomy PAST SURGICAL HISTORY OF Bilateral partial knee replacemenet TONSILLECTOMY PRIMARY/SECONDARY Tonsillectomy FAMILY HISTORY Problem Relation Age of Onset Arthritis Mother other (Dementia) Mother Heart Father [place], bi-pass surgery X-2/diabetes Headache Sister Thyroid Sister Calcium Disorder No Family History Social History Tobacco Use Smoking status: Never Smokeless tobacco: Never Vaping Use Vaping status: Never Used Substance Use Topics Alcohol use: Yes Comment: Occasionally wine Drug use: No Past medical history, appointments, medications, allergies reviewed. Pertinent Lab/Diagnostic Studies are reviewed and discussed today Current Outpatient Medications: memantine (NAMENDA) 10 mg/5 mL oral liquid rosuvastatin (CRESTOR) 10 mg tablet ubidecarenone/vitamin E mixed (COQ10 SG 100 ORAL) donepezil (ARICEPT) 5 mg tablet levothyroxine (SYNTHROID) 25 mcg tablet levothyroxine (SYNTHROID) 25 mcg tablet Magnesium 200 mg tab Ascorbic Acid (VITAMIN C) powd acetaminophen (TYLENOL) 325 mg tablet Current Facility-Administered Medications: [START ON 05/19/2024] denosumab 60 mg injection (PROLIA) Review of Systems CONSTITUTIONAL: No fevers, chills night sweats, unintended weight loss CARDIOVASCULAR: No chest pain, dyspnea, palpitations, orthopnea, PND, ankle edema. PULM: No dyspnea, unexplained cough. GI: No dysphagia/odynophagia, problematic reflux, constipation, diarrhea, changes in stool habits, hematochezia, melena. : No new urinary complaints, including dysuria, gross (more content not included)...[facility]01-17-2025 History of Present illness Narrative* Ashley Roberson MD - 04/25/2024 9:04 AM EST Reason for Visit Patient presents with: Diarrhea: Loose stool and incontinence Fiona Gruber is a 82 year old female who presents here today for Above Complaints.. Health Maintenance ADVANCE DIRECTIVE DISCUSSION HPI Fiona is 83-year-old woman with a past medical history of essential tremor, balance disorder, essential hypertension, MTHFR gene mutation, hypothyroidism, osteoporosis, CAA. Since the last time she saw me a lot has transpired. Since last visit diagnosed with osteoporosis and treated with Prolia, changed to Fosamax as it was thought Prolia may be causing worsening memory. Diagnosed with MTHFR mutation. Diagnosed with hypothyroidism and started on thyroxine. 10/30: Diarrhea: started a couple months ago, mostly in the night time, once is while she has it in the day. Watery and a lot of gas. Has not lost weight but gained some weight. No blood in diarrhea or changes in appetite She was started on aricept a couple months ago which she has been taking at night time, which coincides with her time line Leg cramps: has been having leg cramps at night , triggers seem to be dehydration. Has had it on and off for a long time but getting worse currently. Daughter started on magnesium. But levels was toohigh so that was stopped. She is using soap under her sheets, actually is putting it under sheets and he thinks it is helping her CAA: she is following up with Neurology. I wonder if diarrhea is a cause of the CAA> last year she had a cervical fracture post injury in a fall at home in June, she was taken to [facility] and they fused 6 vertebrae, had Physical Therapy at that time at [facility] for a week. Still has left hand numbness and jerky movements, neck does not hurt unless she is bent over a puzzle for a long time 04/25/24: notes diarrhea for the past 6 months or more, it happens once every 2 weeks, happens at night, so she has been using the depends now at night time. Watery and gassy, family member asked to use benefiber, but it has not helped much. This coincides with the time that she started aricept , notes that aricept definitely has helped her. Not clear if this is medication related, progression of dementia or organic issue going on. No problem-specific Assessment & Plan notes found for this encounter. PAST MEDICAL HISTORY Diagnosis Date Age related osteoporosis DEMETRA (acute kidney injury) (HCC) 08/18/2019 Arthritis of both knees 03/08/2015 Diarrhea Diverticulosis of colon (without mention of hemorrhage) Essential tremor 03/08/2016 Hypercalcemia 03/13/2018 Hyperparathyroidism, unspecified ([facility]) Hypothyroidism, acquired 05/22/2020 Irritable bowel syndrome Osteopenia Pill dysphagia Sciatica Secondary hyperparathyroidism (HCC) 08/02/2010 Vitamin B 12 deficiency 08/18/2019 Vitamin D deficiency 01/19/2014 PAST SURGICAL HISTORY Procedure Laterality Date ADENOIDECTOMY PRIMARY <AGE 12 Adenoidectomy COLONOSCOPY FLX DX W/COLLJ SPEC WHEN PFRMD 08/19/1999 Colonoscopy COLONOSCOPY FLX DX W/COLLJ SPEC WHEN PFRMD 07/14/2009 Repeat in COLONOSCOPY FLX DX W/COLLJ SPEC WHEN PFRMD 09/30/2019 Colonoscopy NECK SURGERY HX 07/12/2021 C4-T2 Fusion and C5-7 Laminectomy PAST SURGICAL HISTORY OF Bilateral partial knee replacemenet TONSILLECTOMY PRIMARY/SECONDARY <AGE 12 Tonsillectomy FAMILY HISTORY Problem Relation Age of Onset Arthritis Mother other (Dementia) Mother Heart Father [place], bi-pass surgery X-2/diabetes Headache Sister Thyroid Sister Calcium Disorder No Family History Social History Tobacco Use Smoking status: Never Smokeless tobacco: Never Vaping Use Vaping status: Never Used Substance Use Topics Alcohol use: Yes Comment: Occasionally wine Drug use: No Past medical history, appointments, medications, allergies reviewed. Pertinent Lab/Diagnostic Studies are reviewed and discussed today Current Outpatient Medications: memantine (NAMENDA) 10 mg/5 mL oral liquid rosuvastatin (CRESTOR) 10 mg tablet ubidecarenone/vitamin E mixed (COQ10 SG 100 ORAL) donepezil (ARICEPT) 5 mg tablet levothyroxine (SYNTHROID) 25 mcg tablet levothyroxine (SYNTHROID) 25 mcg tablet Magnesium 200 mg tab Ascorbic Acid (VITAMIN C) powd acetaminophen (TYLENOL) 325 mg tablet Current Facility-Administered Medications: [START ON 05/19/2024] denosumab 60 mg injection (PROLIA) Review of Systems CONSTITUTIONAL: No fevers, chills night sweats, unintended weight loss CARDIOVASCULAR: No chest pain, dyspnea, palpitations, orthopnea, PND, ankle edema. PULM: No dyspnea, unexplained cough. GI: No dysphagia/odynophagia, problematic reflux, constipation, diarrhea, changes in stool habits, hematochezia, melena. : No new urinary complaints, including dysuria, gross hematuria or pyuria. NEURO: No new balance problems, peripheral weakness/paresthesias or numbness of concern. Physical Exam BP 116/78 (BP Site: Right Arm) Pulse 90 Wt 58.3 kg (128 lb 8.5 oz) SpO2 99% BMI (P) 22.06 kg/m General appearance: Well appearing, alert, in no acute distress, well nourished. Skin: Skin color, texture, turgor normal, no suspicious rashes or lesions Head: Normocephalic, no masses, lesions, tenderness or abnormalities Eyes: Anicteric sclera. Pupils are equally round and reactive to light. Extraocular movements are intact. Lungs: Lungs clear to auscultation. No wheezing, rhonchi, rales Heart: RRR without murmur, gallop, or rubs. Extremities: No deformities, edema, skin discoloration, clubbing or cyanosis. Good capillary refill. Abdomen: soft, nondistended, nontender, no hepatosplenomegaly or masses, diffusely increased bowel sounds ASSESSMENT/PLAN: 1. Diarrhea, unspecified type - ICD9: 787.91, ICD10: R19.7 (primary diagnosis) - CONSULT TO GASTROENTEROLOGY - trial of colestipol to see if that would counter the affects of aricept 2. Incontinence of feces, unspecified fecal incontinence type - ICD9: 787.60, ICD10: R15.9 - CONSULT TO GASTROENTEROLOGY 3. Medication side effect - ICD9: 995.20, ICD10: T88.7XXA 4. Hypermagnesemia - ICD9: 275.2, ICD10: E83.41 Ashley Roberson MD documented [facility]01-[facility]25 Telephone encounter Note * Telephone Encounter - Tsering Loo MA - 04/16/2024 1:06 PM EST Dong notified order is ready for excelsior picker in Medical Records. [facility]01-08-2025 Miscellaneous Notes* Telephone Encounter - Tsering Loo MA - 04/16/2024 1:06 PM EST Dong notified order is ready for excelsior picker in Medical Records. * Telephone Encounter - Yvonne Valente APRN.ICT ACCOUNT MANAGER - 04/16/2024 11:14 AM EST Order placed as requested Thank you Yvonne Valente APRN.CNP * Telephone Encounter - Shanell Lyles LPN - 04/16/2024 10:32 AM EST Patient Dong calling asking for an order for a chair lift. His has been having issues falling and he does not want her falling down the stairs. He is calling his insurance to find outif covered and what DME to use. He would like to excelsior picker order when it is ready. Pending order put several diagnosis on order. Please advise documented [facility]01-[facility]25 Telephone encounter Note * Telephone Encounter - Yvonne Valente APRN.CNP - 04/16/2024 11:14 AM EST Order placed as requested Thank you Yvonne Valente APRN.CNP [facility]01-08-2025 Telephone encounter Note* Telephone Encounter - Shanell Lyles LPN - 04/16/2024 10:32 AM EST Patient Dong calling asking for an order for a chair lift. His has been having issues falling and he does not want her falling down the stairs. He is calling his insurance to find outif covered and what DME to use. He would like to excelsior picker order when it is ready. Pending order put several diagnosis on order. Please advise [facility] Note* Addendum Note - Myrna Plata Jr., MD - 03/14/2024 4:01 PM ESTAddended by: MYRNA PLATA on: 03/14/2024 04:01 PM Modules accepted: Orders [facility]12-06-2024 Miscellaneous Notes* Addendum Note - Myrna Plata Jr., MD - 03/14/2024 4:01 PM ESTAddended by: MYRNA PLATA on: 03/14/2024 04:01 PM Modules accepted: Orders * Addendum Note - Efren Bower OCCA - 03/14/2024 3:56 PM ESTAddended by: EFREN BOWER on: 03/14/2024 03:56 PM Modules accepted: Orders * Telephone Encounter - Paty Schreiber LPN - 03/14/2024 2:28 PM EST Prescription Refill Information The patient has been identified by name and date of : Yes Caregiver verified no other encounters exist for this prescription request: Yes The last office visit in the department: 12/28/23 ASSESSMENT/PLAN: 1. Dementia without behavioral disturbance, psychotic disturbance, mood disturbance, or anxiety, unspecified dementia severity, unspecified dementia type (HCC) - ICD9: 294.20, ICD10: F03.90 (primary diagnosis) 2. Cerebral amyloid angiopathy (CODE) - ICD9: 277.39, 437.9, ICD10: I68.0 Patient with cognitive decline, of which definite etiology unknown. Pt with evidence of CAA on MRI brain, but also question if second process such as neurodegenerative dementia (I.e. Alzheimer's disease) given family history of Alzheimer's and pattern of atrophy on MRI brain. Patient also to some extent has responded to both Aricept and Namenda. Ddx d/w pt and her family. D/w them more invasive means of testing including CSF evaluation, although likely would not change treatment as given evidence of CAA, pt would be high risk for hemorrhage with use of infusion type therapies if Alzheimer's disease was to be confirmed. We discussed treatment and will continue Namenda and Aricpet as pt taking with reminding them of possible SEs and ADRs. Encouraged brain exercises. As pt has been seen by CV in past, do not see benefit in repeat follow up. However, we did discuss avoiding all meds that could increase risk of hemorrhage including NSAIDs and anticoagulation. At the moment not on antiplt and would need to discuss safety in event antiplt therapy would be a necessity (I.e. [place]). They agree with plan. All testing reviewed with pt and family. Follow up in Spring 2024. In meantime pt should not be driving or operating heavy machinery. Pt receiving essentially 24 hour care from family. 3. Balance disorder - ICD9: 781.99, ICD10: R26.89 4. Ataxia - ICD9: 781.3, ICD10: R27.0 5. Recurrent falls - ICD9: V15.88, ICD10: R29.6 6. History of recent traumatic injury of head - ICD9: V15.52, ICD10: Z87.820 7. History of cervical fracture - ICD9: V15.51, ICD10: Z87.81 Like cognition, likely multifactorial including CAA and C spine injuries in the past. Overall doingbetter with increased activity and use of assist device. With no new deficits on neuro exam, will continue to monitor. Encouraged continued use of assist device. Reviewed MRI C spine images with family. No additional recs at this time, but if progresses will then refer to PT. Follow up as above. Myrna Plata MD Does the patient have a future office visit with this provider/department: Yes 05/26/24 [facility] Requested Prescriptions Pending Prescriptions Disp Refills memantine (NAMENDA) 10 mg/5 mL oral liquid 900 mL 3 Siml po twice daily Paty Schreiber LPN March 14, 2024 2:28 PM * Telephone Encounter - VickeyDionicio - 03/14/2024 1:58 PM EST Physician: Sherlyn Call from pharmacy requesting refill. Please E-Scribe Last office visit 12/28/2023 with Sherlyn in person Next office visit 05/26/2024 with Sherlyn in person Requested Prescriptions Pending Prescriptions Disp Refills memantine (NAMENDA) 10 mg/5 mL oral liquid 900 mL 3 Siml po twice daily [facility] Dionicio Hurd [facility]* Addendum Note - Efren Bower OCCA - 03/14/2024 3:56 PM ESTAddended by: EFREN BOWER on: 03/14/2024 03:56 PM Modules accepted: Orders [facility]12-06-[facility] Telephone encounter Note* Telephone Encounter - Paty Schreiber LPN - 03/14/2024 2:28 PM EST Prescription Refill Information The patient has been identified by name and date of : Yes Caregiver verified no other encounters exist for this prescription request: Yes The last office visit in the department: 12/28/23 ASSESSMENT/PLAN: 1. Dementia without behavioral disturbance, psychotic disturbance, mood disturbance, or anxiety, unspecified dementia severity, unspecified dementia type (HCC) - ICD9: 294.20, ICD10: F03.90 (primary diagnosis) 2. Cerebral amyloid angiopathy (CODE) - ICD9: 277.39, 437.9, ICD10: I68.0 Patient with cognitive decline, of which definite etiology unknown. Pt with evidence of CAA on MRI brain, but also question if second process such as neurodegenerative dementia (I.e. Alzheimer's disease) given family history of Alzheimer's and pattern of atrophy on MRI brain. Patient also to some extent has responded to both Aricept and Namenda. Ddx d/w pt and her family. D/w them more invasive means of testing including CSF evaluation, although likely would not change treatment as given evidence of CAA, pt would be high risk for hemorrhage with use of infusion type therapies if Alzheimer's disease was to be confirmed. We discussed treatment and will continue Namenda and Aricpet as pt taking with reminding them of possible SEs and ADRs. Encouraged brain exercises. As pt has been seen by in past, do not see benefit in repeat follow up. However, we did discuss avoiding all meds that could increase risk of hemorrhage including NSAIDs and anticoagulation. At the moment not on antiplt and would need to discuss safety in event antiplt therapy would be a necessity (I.e. MO). They agree with plan. All testing reviewed with pt and family. Follow up in Spring 2024. In meantime pt should not be driving or operating heavy machinery. Pt receiving essentially 24 hour care from family. 3. Balance disorder - ICD9: 781.99, ICD10: R26.89 4. Ataxia - ICD9: 781.3, ICD10: R27.0 5. Recurrent falls - ICD9: V15.88, ICD10: R29.6 6. History of recent traumatic injury of head - ICD9: V15.52, ICD10: Z87.820 7. History of cervical fracture - ICD9: V15.51, ICD10: Z87.81 Like cognition, likely multifactorial including CAA and C spine injuries in the past. Overall doingbetter with increased activity and use of assist device. With no new deficits on neuro exam, will continue to monitor. Encouraged continued use of assist device. Reviewed MRI C spine images with family. No additional recs at this time, but if progresses will then refer to PT. Follow up as above. Myrna Plata MD Does the patient have a future office visit with this provider/department: Yes 05/26/24 WValeriN Requested Prescriptions Pending Prescriptions Disp Refills memantine (NAMENDA) 10 mg/5 mL oral liquid 900 mL 3 Siml po twice daily Paty Schreiber LPN March 14, 2024 2:28 PM [facility] Telephone encounter Note* Telephone Encounter - Vickey Willianleeroyjerome - 03/14/2024 1:58 PM EST Physician: Sherlyn Call from pharmacy requesting refill. Please E-Scribe Last office visit 12/28/2023 with Sherlyn in person Next office visit 05/26/2024 with Sherlyn in person Requested Prescriptions Pending Prescriptions Disp Refills memantine (NAMENDA) 10 mg/5 mL oral liquid 900 mL 3 Siml po twice daily Pharm[facility]: [facility] Dionicio Hurd [facility]24 NoteHNO ID: [id number] Author: ASHLEY ROBERSON MD Service: ? Author Type: Physician Type: Progress Notes Filed: 02/19/2024 13:12 Note Text: Fiona Gruber is a 83 year old female here for a Medicare wellness visit. Medicare Health Risk Assessment General Health She does not exercise. But willing to go to [place]. Exercise: Minutes/Day 0 min Exercise: Days/Week 0 days Alcohol: Daily Use Monthly or less Alcohol: Drinks/Day 1 or 2 Alcohol: 6 or more drinks Never Feel off balance No Concerns: Teeth/Dentures No Concerns: Sexual function No Troubled by feelings No Frequency: Eating healthy diet No ADLs requiring help Mostly everything Safety precautions in home/vehicle Yes Smoke, vape, chews tobacco No Difficulty hearing No Difficulty seeing No Current Providers Specialists: I have reviewed specialist-related care of the patient in the medical record. Medical/Family history review Reviewed and updated problem list, medical/surgical/family/social history, medications, and allergies. Opioid use review Opioid Medications (last 90 days) No data to display Anxiety/Depression screening Recommendation: no further intervention at this time Cognitive screening Cognitive screening reviewed and No further action needed (score 3-5). Functional Observation Was the patient's Timed Up AND Go test unsteady or >= 12 seconds? No Advance Care Planning Surrogate decision maker and/or advance care plan documented Measurements BP 110/70 Pulse 73 Resp 16 Wt 56.7 kg (125 lb) BMI (P) 21.46 kg/m? Vision Screening: Follows with optometry/ophthalmology Assessment/Plan Medicare annual wellness visit, subsequent (Z00.00) - Counseled on healthy diet and regular exercise - Fall avoidance information provided - Personalized prevention plan provided.[facility]11-12-2024 History of Present illness Narrative* Ashley Roberson MD - 02/19/2024 12:07 PM EST Images from the original note were not included. Fiona Gruber is a 83 year old female here for a Medicare wellness visit. Medicare Health Risk Assessment General Health She does not exercise. But willing to go to [place]. Exercise: Minutes/Day 0 min Exercise: Days/Week 0 days Alcohol: Daily Use Monthly or less Alcohol: Drinks/Day 1 or 2 Alcohol: 6 or more drinks Never Feel off balance No Concerns: Teeth/Dentures No Concerns: Sexual function No Troubled by feelings No Frequency: Eating healthy diet No ADLs requiring help Mostly everything Safety precautions in home/vehicle Yes Smoke, vape, chews tobacco No Difficulty hearing No Difficulty seeing No Current Providers Specialists: I have reviewed specialist-related care of the patient in the medical record. Medical/Family history review Reviewed and updated problem list, medical/surgical/family/social history, medications, and allergies. Opioid use review Opioid Medications (last 90 days) No data to display Anxiety/Depression screening Recommendation: no further intervention at this time Cognitive screening Cognitive screening reviewed and No further action needed (score 3-5). Functional Observation Was the patient's Timed Up & Go test unsteady or >= 12 seconds? No Advance Care Planning Surrogate decision maker and/or advance care plan documented Measurements BP 110/70 Pulse 73 Resp 16 Wt 56.7 kg (125 lb) BMI (P) 21.46 kg/m Vision Screening: Follows with optometry/ophthalmology Assessment/Plan Medicare annual wellness visit, subsequent (Z00.00) - Counseled on healthy diet and regular exercise - Fall avoidance information provided - Personalized prevention plan provided. documented in [facility]11-04-2024 Telephone encounter Note * Telephone Encounter - Marian Freeman - 02/11/2024 9:50 AM EST Patient is out and is asking for a local pharmacy script to be called [place]. [facility] Miscellaneous Notes* Telephone Encounter - Marian Freeman - 02/11/2024 9:50 AM EST Patient is out and is asking for a local pharmacy script to be called in sea. * Telephone Encounter - Marian Freeman - 02/11/2024 9:48 AM EST Prescription Refill Information The patient has been identified by name and date of : Yes Caregiver verified no other encounters exist for this prescription request: Yes Caregiver confirmed with patient/requestor that no other refills are due, in the near future, with this provider at this time: Yes The last office visit in the department: 11-21-23 Does the patient have a future office visit with this provider/department: Yes Requested Prescriptions Pending Prescriptions Disp Refills levothyroxine (SYNTHROID) 25 mcg tablet 90 tablet 3 Sig: Take 1 tablet by mouth once daily. levothyroxine (SYNTHROID) 25 mcg tablet 21 tablet 0 Sig: Take 1 tablet by mouth once daily. Marian Ansari February 11, 2024 9:49 AM documented in this encounterM[facility]11-04-2024 Telephone encounter Note * Telephone Encounter - Marian Freeman - 02/11/2024 9:48 AM EST Prescription Refill Information The patient has been identified by name and date of : Yes Caregiver verified no other encounters exist for this prescription request: Yes Caregiver confirmed with patient/requestor that no other refills are due, in the near future, with this provider at this time: Yes The last office visit in the department: 11-21-23 Does the patient have a future office visit with this provider/department: Yes Requested Prescriptions Pending Prescriptions Disp Refills levothyroxine (SYNTHROID) 25 mcg tablet 90 tablet 3 Sig: Take 1 tablet by mouth once daily. levothyroxine (SYNTHROID) 25 mcg tablet 21 tablet 0 Sig: Take 1 tablet by mouth once daily. Marian Ansari February 11, 2024 9:49 AM [facility]10[facility] History of Present illness Narrative* Kelton Ellison - 02/05/2024 4:01 PM EDT Fiona Gruber is identified through a medication adherence outreach initiative based on pharmacy claims data from [employer] (insurer) for Statin medication(s). Patient is reviewed 02/05/24 due to medication adherence concerns with the following medications (name, strength, sig): rosuvastatin 10mg, take 1 tablet daily. Per data/report, last fill date and days supply: due 02/04/24 Per reconcile dispense, last fill date and days supply: filled 01/28/24 for 90 days Per call to pharmacy, last picked up date and days supply: shipped 02/01/24 Outcome of review/outreach: (choose outcome source and status) - Filled within 7 days of Next fill date per call to pharmacy Kelton Ellison documented in this [facility]10-14-2024 History of Present illness Narrative* Amada Ewing - 01/21/2024 10:33 AM EDT Fiona Gruber is identified through a medication adherence outreach initiative based on pharmacy claims data from [employer] (insurer) for Statin medication(s). Patient is reviewed 01/21/24 due to medication adherence concerns with the following medications (name, strength, sig): Rosuvastatin 10 mg 1 tablet every day . Per data/report, last fill date and days supply: Due 02/04/2024 Per reconcile dispense, last fill date and days supply: 11/06/2023 for 90 days Per call to pharmacy, last picked up date and days supply: NA Contacted patient: Irina Outcome of review/outreach: (choose outcome source and status) - MyChart reminder sent to patient Amada Ewing documented in this encounterM[facility]10-11-2024 Telephone encounter Note * Telephone Encounter - Tita Koroma LPN - 01/18/2024 10:13 AM EDT Prescription Refill Information The patient has been identified by name and date of : Yes Caregiver verified no other encounters exist for this prescription request: Yes Caregiver confirmed with patient/requestor that no other refills are due, in the near future, with this provider at this time: Yes The last office visit in the department: 11/21/23 Does the patient have a future office visit with this provider/department: Yes Requested Prescriptions Pending Prescriptions Disp Refills rosuvastatin (CRESTOR) 10 mg tablet 90 tablet 3 Sig: Take 1 tablet by mouth daily at bedtime. Tita Koroma LPN January 18, 2024 10:14 AM [facility] Miscellaneous Notes* Telephone Encounter - Tita Koroma LPN - 01/18/2024 10:13 AM EDT Prescription Refill Information The patient has been identified by name and date of : Yes Caregiver verified no other encounters exist for this prescription request: Yes Caregiver confirmed with patient/requestor that no other refills are due, in the near future, with this provider at this time: Yes The last office visit in the department: 11/21/23 Does the patient have a future office visit with this provider/department: Yes Requested Prescriptions Pending Prescriptions Disp Refills rosuvastatin (CRESTOR) 10 mg tablet 90 tablet 3 Sig: Take 1 tablet by mouth daily at bedtime. Tita Koroma LPN January 18, 2024 10:14 AM documented in this encounterM[facility]09-20-[facility] History of Present illness Narrative* Myrna Plata Jr., MD - 12/28/2023 10:48 AM EDT ESTABLISHED PATIENT VISIT CHIEF COMPLAINT: Follow Up HISTORY OF PRESENT ILLNESS: Fiona Gruber is a 83 year old female, BMI 21.52 kg/m2 with a PMH significant for and per last office visit of 09/10/23: 1. Dementia without behavioral disturbance, psychotic disturbance, mood disturbance, or anxiety, unspecified dementia severity, unspecified dementia type (HCC) - ICD9: 294.20, ICD10: F03.90 (primary diagnosis) Patient with long standing history of cognitive decline - most significant impairment being short term memory. While history of B12 deficiency and thyroid disorder, both have been corrected with no improvement of symptoms. Family history of dementia and suspect neurodegenerative process given person and family history. However, given more abrupt decline in recent months question if possible superimposed vascular component, CAA, or if secondary to recurrent head traumas (post concussive or underlying SDH). Last head image 2 years ago. Suspect transient episodes of increased confusion likely due to viruses such as UTI with daughter confirming dx of UTI with most events. Will further evaluate f or intracranial changes that may be contributing to symptoms including vascular event, and progression of atrophy by means of MRI brain. Will request volumetric studies which would further aid in diagnosis a neurodegenerative process. MOCA is worse than it was 2+ years ago. Will continue Aricept 5mg daily but will start on Namenda 5mg daily and titrate up by 5mg weekly to goal of 10mg BID. Note pt cannot swallow tablets or capsules and thus requesting oral liquid form of Namenda (10mg/5ml). SE and ADRs d/w pt and her daughter. 2. Balance disorder - ICD9: 781.99, ICD10: R26.89 3. Shaking - ICD9: 781.0, ICD10: R25.1 4. Cervical myelopathy (HCC) - ICD9: 721.1, ICD10: G95.9 5. Ataxia - ICD9: 781.3, ICD10: R27.0 6. Cerebral amyloid angiopathy (CODE) - ICD9: 277.39, 437.9, ICD10: I68.0 7. History of cervical fracture - ICD9: V15.51, ICD10: Z87.81 8. Recurrent falls - ICD9: V15.88, ICD10: R29.6 9. History of recent traumatic injury of head - ICD9: V15.52, ICD10: Z87.820 As with cognitive decline, difficult to determine exact cause of gait disturbance and other physical complaints at this time. That said, suspect Cervical cord injury (C spine fxs) likely cause. Further supported by LUE symptoms of numbness and jerking that correlation with levels of C spine injury. In addition UMN signs on exam of LUE. Will further evaluate with MRI C spine. No signs of neuropathy or focal weakness. No vertigo or other symptoms preceding falls. No s/s to suggest NPH triad. Thatsaid, still concern for possible intracranial cause of gait disturbance such as bleed or ischemic event that may also contribute to cognitive decline. Again, risk factors for such including possible CAA. To further evaluate will get MRI brain as noted above. MRI brain and C spine completed on 10/16/23 and per rad reports: IMPRESSION: * No evidence of an acute intracranial process or intracranial mass. * Mild generalized volume loss based on visual inspection, progressed. * Hippocampal volumes at the 29th percentile and whole brain volumes at the 26th percentile when compared to age matched normal controls by quantitative analysis, previously 63rd and 41st percentile, respectively. * Severe white matter disease which is nonspecific but likely reflective of chronic microvascular ischemia. * Innumerable remote microhemorrhages and multifocal sulcal hemosiderin deposition, compatible with cerebral amyloid angiopathy, progressed from 05/16/2021. Interval cervical posterior decompression and instrumented fusion with resolution of previous spinal canal stenosis at C5-6 and C6-7; no residual cord impingement. Residual degenerative foraminal stenosis described. Patient with no falls since last visit. present and feels nothing worse, including stability of memory. feels Namenda stabilizing condition. Still needs cane for gait stability outside the house. Goes up and down basement steps without issues. Tolerating Namenda without side effects. On 10mg BID. Reviewed all imaging with pt and family and agree with rad report (including CAA). Daughter also inon visit by phone. 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 MOCA: today (on paper - to be scanned). Most of visit spent answering questions of family and discussing diagnosis. REVIEW OF SYSTEMS GENERAL:No weight loss, malaise or fevers. HEENT:Negative for frequent or significant headaches, No changes in hearing or vision, no nose bleeds or other nasal problems NECK:Negative for lumps, goiter, pain and significant neck swelling RESPIRATORY: Negative for cough, wheezing or shortness of breath. CARDIOVASCULAR: Negative for chest pain, leg swelling or palpitations. GASTROINTESTINAL: Negative for abdominal discomfort, blood in stools or black stools or change in bowel habits GENITOURINARY: No history of dysuria, frequency or incontinence MUSCULOSKELETAL: Negative for joint pain or swelling, back pain or muscle pain. NEUROLOGIC:See HPI. SKIN:Negative for lesions, rash, and itching. LAB/IMAGING: Those performed since patient's last visit have been reviewed. WBC (k/uL) Date Value 06/19/2023 6.04 RBC (m/uL) Date Value 06/19/2023 4.82 Hemoglobin (g/dL) Date Value 06/19/2023 13.9 Hematocrit (%) Date Value 06/19/2023 42.9 MCV (fL) Date Value 06/19/2023 89.0 MCH (pg) Date Value 06/19/2023 28.8 MCHC (g/dL) Date Value 06/19/2023 32.4 RDW-CV (%) Date Value 06/19/2023 14.0 Platelet Count (k/uL) Date Value 06/19/2023 194 MPV (fL) Date Value 06/19/2023 11.9 Glucose (mg/dL) Date Value 11/01/2023 92 BUN (mg/dL) Date Value 11/01/2023 23 (H) Creatinine (mg/dL) Date Value 11/01/2023 0.87 Sodium (mmol/L) Date Value 11/01/2023 140 Potassium (mmol/L) Date Value 11/01/2023 4.3 Chloride (mmol/L) Date Value 11/01/2023 104 CO2 (mmol/L) Date Value 11/01/2023 28 Protein, Total (g/dL) Date Value 11/01/2023 7.1 Albumin (g/dL) Date Value 11/01/2023 4.4 Calcium, Total (mg/dL) Date Value 11/01/2023 9.7 Alkaline Phosphatase (U/L) Date Value 11/01/2023 55 Bilirubin, Total (mg/dL) Date Value 11/01/2023 0.4 AST (U/L) Date Value 11/01/2023 27 ALT (U/L) Date Value 11/01/2023 19 MEDICATIONS: ubidecarenone/vitamin E mixed (COQ10 SG 100 ORAL)^Take 1 tablet by mouth once daily.^Disp: ^Rfl: Magnesium 200 mg tab^Take 200 mg by mouth once daily.^Disp: ^Rfl: donepezil (ARICEPT) 5 mg tablet^Take 1 tablet by mouth daily with breakfast.^Disp: ^Rfl: memantine (NAMENDA) 10 mg/5 mL oral liquid^Take 2.5ml daily x1 week, then increase to 2.5ml twice dailiy x1 week, then increase to 5ml in AM and 2.5ml in PM x1 week, then increase to 5ml twice daily and continue.^Disp: 1080 mL^Rfl: 1 levothyroxine (SYNTHROID) 25 mcg tablet^Take 1 tablet by mouth once daily.^Disp: ^Rfl: 0 rosuvastatin (CRESTOR) 10 mg tablet^Take 1 tablet by mouth daily at bedtime.^Disp: 90 tablet^Rfl: 3 Ascorbic Acid (VITAMIN C) powd^Take 1 Each by mouth once daily.^Disp: ^Rfl: (Patient not taking: Reported on 12/28/2023) acetaminophen (TYLENOL) 325 mg tablet^Take 2 tablets by mouth every 4 hours as needed for pain (acute post operative pain).^Disp: ^Rfl: (Patient not taking: Reported on 12/28/2023) HISTORIES PAST MEDICAL HISTORY Diagnosis Date Age related osteoporosis DEMETRA (acute kidney injury) ([facility]) 08/18/2019 Arthritis of both knees 03/08/2015 Diarrhea Diverticulosis of colon (without mention of hemorrhage) Essential tremor 03/08/2016 Hypercalcemia 03/13/2018 Hyperparathyroidism, unspecified ([facility]) Hypothyroidism, acquired 05/22/2020 Irritable bowel syndrome Osteopenia Pill dysphagia Sciatica Secondary hyperparathyroidism ([facility]) 08/02/2010 Vitamin B 12 deficiency 08/18/2019 Vitamin D deficiency 01/19/2014 FAMILY HISTORY Problem Relation Age of Onset Arthritis Mother other (Dementia) Mother Heart Father [place], bi-pass surgery X-2/diabetes Headache Sister Thyroid Sister Calcium Disorder No Family History SOCIAL HISTORY Social History Tobacco Use Smoking status: Never Smokeless tobacco: Never Vaping Use Vaping status: Never Used Substance Use Topics Alcohol use: Yes Comment: Occasionally wine Drug use: No PHYSICAL EXAMINATION BP 111/68 (BP Site: Left Arm, BP Position: Sitting) Pulse 82 Wt 56.9 kg (125 lb 6.4 oz) SpO2 100% BMI (P) 21.52 kg/m GENERAL EXAM: NEUROLOGICAL EXAM: General: Awake, alert, fluent, no dysarthria; easily distracted but pleasant. MOCA as above. CN: PERRL, VFF to confrontation, facial sensation and strength are normal and symmetric, hearing isintact to finger rub bilaterally, palate and tongue movements are intact and symmetric. SCM and trapezius strength normal. Motor: Normal tone, decreased bulk in L thenar, strength (5/5) bilaterally (throughout extremities x4). Coordination: FNF, RENEE intact. No tremors. Sensation: Light touch, intact throughout. No evidence of neglect. Gait: Stable with normal stride but hold for balance.. Assessment and Plan: ASSESSMENT/PLAN: 1. Dementia without behavioral disturbance, psychotic disturbance, mood disturbance, or anxiety, unspecified dementia severity, unspecified dementia type (HCC) - ICD9: 294.20, ICD10: F03.90 (primary diagnosis) 2. Cerebral amyloid angiopathy (CODE) - ICD9: 277.39, 437.9, ICD10: I68.0 Patient with cognitive decline, of which definite etiology unknown. Pt with evidence of CAA on MRI brain, but also question if second process such as neurodegenerative dementia (I.e. Alzheimer's disease) given family history of Alzheimer's and pattern of atrophy on MRI brain. Patient also to some extent has responded to both Aricept and Namenda. Ddx d/w pt and her family. D/w them more invasive means of testing including CSF evaluation, although likely would not change treatment as given evidence of CAA, pt would be high risk for hemorrhage with use of infusion type therapies if Alzheimer's disease was to be confirmed. We discussed treatment and will continue Namenda and Aricpet as pt taking with reminding them of possible SEs and ADRs. Encouraged brain exercises. As pt has been seen by CV in past, do not see benefit in repeat follow up. However, we did discuss avoiding all meds that could increase risk of hemorrhage including NSAIDs and anticoagulation. At the moment not on antiplt and would need to discuss safety in event antiplt therapy would be a necessity (I.e. [place]). They agree with plan. All testing reviewed with pt and family. Follow up in Spring 2024. In meantime pt should not be driving or operating heavy machinery. Pt receiving essentially 24 hour care from family. 3. Balance disorder - ICD9: 781.99, ICD10: R26.89 4. Ataxia - ICD9: 781.3, ICD10: R27.0 5. Recurrent falls - ICD9: V15.88, ICD10: R29.6 6. History of recent traumatic injury of head - ICD9: V15.52, ICD10: Z87.820 7. History of cervical fracture - ICD9: V15.51, ICD10: Z87.81 Like cognition, likely multifactorial including CAA and C spine injuries in the past. Overall doingbetter with increased activity and use of assist device. With no new deficits on neuro exam, will continue to monitor. Encouraged continued use of assist device. Reviewed MRI C spine images with family. No additional recs at this time, but if progresses will then refer to PT. Follow up as above. Myrna Plata MD I spent a total of 45+ minutes on the date of the service which included preparing to see the patient, [id number] patient care, completing clinical documentation, obtaining and/or reviewing separately obtained history, performing a medically appropriate examination, counseling and educating the pa tient/family/caregiver, ordering medications, tests, or procedures, independently interpreting results (not separately reported), and communicating results to the patient/family/caregiver. documented in this [facility] History of Present illness Narrative* Kailee Castillo LPN - 12/24/2023 10:32 AM EDT Patient presents for Prolia injection. Denies any problems at this time. Patient instructed on any SE of medication, verbalized understanding and agreed to proceed with treatment. Tolerated injectionwell. Kailee Castillo LPN documented in this encounterM[facility]08-14-2024 Instructions* Patient Instructions* Ashley Roberson MD - 11/21/2023 11:50 AM EDT I would like you to exercise every day for 30 mins Please get the sleep study done, sleep apnea may be worsening cognition. Cont the aricept and Namenda Vit d levels are mildly lowPlease take OT vit d3 2000 IU daily with food. Please remember to come for your prolia shot in December of 2023 Eat more of a mediterranean diet documented in this encounterM[facility]08-14-[facility] History of Present illness Narrative* Ashley Roberson MD - 11/21/2023 10:42 AM EDT [facility] Initial Consult Fiona Gruber is a 83 year old year old female who comes for Comprehensive Geriatric Assessment. Pt accompanied by: Caregivers involved in care: HPI: She was dx with CAA, now with dementia, she is taking Aricept and Namenda for the past year. Memoryissues started in 2014. Any Family History of dementia? Her mother had issues with dementia, she was 92 years old. Are you or your spouse a ?no Alzheimer's Questionnaire ([place] 2010) THE CAREGIVER REPORTS THAT THE PATIENT: - Has memory loss - Has worse memory than a few years ago - Repeats questions, statements, or stories in the same day - Forgets appointments or needs caregiver to track events/appointments - Misplaces items more than once a month, or so that s/he cannot find them - Suspects others are moving/hiding/stealing items when s/he cannot find them - Frequently has trouble knowing the date, uses cues like newspaper or calendar more than once a day - Becomes disoriented in unfamiliar places - Becomes more confused outside the home or when traveling - Has difficulty handling money (e.g., calculating tips or change) - Has trouble handling bills or finances - Has trouble remembering to take medications - Has difficulty driving, or drives in way that concerns the caregiver, or has stopped driving - Has trouble using appliances - Has difficulty completing household tasks or repairs - Has significantly reduced recreational activities THE CAREGIVER DENIES THAT THE PATIENT: - Is getting lost in familiar surroundings - Has a decreased sense of direction - Has trouble finding words other than names - Confuses names of family members or friends - Has difficulty recognizing familiar people Alzheimer's Questionnaire score = 19 (21/21 questions answered) Long-term Memory: Difficulty remembering distant events from the past like childhood, previous employment, wedding: YES Behavioral/personality: Withdrawn/Depressed: NO Crying spells: NO Anxious: NO History of aggression: NO History of irritability: NO Apathy:NO Recent changes in weight or appetite: NO Alcohol or Drug use: wine Smoking? NO Sleep: Do you snore loudly (louder than talking or loud enough to be heard through closed doors)? YES Do you often feel tired, fatigued, or sleepy during daytime? YES Has anyone observed you stop breathing during your sleep? YES Are you restless when you sleep at night? NO Do you have problems falling a sleep? NO Do you have problems staying a sleep? NO Psychosis: Hallucinations or delusions: NO Suicidal or homicidal ideations: YES Obsessions, compulsions, or hoarding: NO Safety: Does pt know his/her address? YES What would you do if there was a fire? Get out the house How would you call for help?could not remember 911 Does he/she know 911? NO Are there any firearms in the home? Yes, in the safe in a basement If yes are they in a secure location? Yes Social History: Primary language: Trinidadian Marital Status: Living situation: Home w/ Spouse Socially engaged? (participates in activities such as clubs, [employer], community center, sports, games, visiting friends/relatives, etc?): YES They got to [employer] every Sunday, takes her everywhere, shopping, visiting people at [employer] and sister. Patient engages with people when they go. Patient gets out from time to time. She does go to the bathroom by herself. Caregiver Roxie and Stress Are your feeling overwhelmed? NO Do you have concerns about your own health? NO Are you neglecting your own needs? NO Do you have financial concerns? NO Do your fear loss of employment? NO Do you have concerns about verbal/physical abuse? NO Do you feel that you are still capable of taking care of your relative? NO Are you willing to continue being in the caregiver role? YES B-ADLs: (I=independent,A=assistance,D=dependent) ?Bathing: A, afraid of falling , so walks her into the shower and sit her down , sometimes needs help with washing hair. Dressing: I, she pick out her clothes and she dresses on her own Toileting: I, Transferring:I, Continence: I, has some urinary incontinence Feeding: I, I-ADLs: Ability to use phone: I she can call her sister or hair dressor and does not need help for that Shopping: A, can excelsior picker a few things, like bread. But would not be able to manage if she was living on her own Cooking: D, she can clean the beans , snap then , wash potatoes, can do a lot of the prep work. Housekeeping: she cleans the stoves and kitchen all the time. But cannot be relied on to do things on a consistent basis. Laundry: I, she does the laundry all the time, runs it even for a few things. Transportation:D, patient quit driving around 5 years ago. Forgetting where she was going and what she is doing. Medications: {D, Handle Finances: D. She used to do this all the time, stopped 5 years ago. PMHx: PAST MEDICAL HISTORY No date: Age related osteoporosis 08/18/2019: DEMETRA (acute kidney injury) ([facility]) 03/08/2015: Arthritis of both knees No date: Diarrhea No date: Diverticulosis of colon (without mention of hemorrhage) 03/08/2016: Essential tremor 03/13/2018: Hypercalcemia No date: Hyperparathyroidism, unspecified ([facility]) 05/22/2020: Hypothyroidism, acquired No date: Irritable bowel syndrome No date: Osteopenia No date: Pill dysphagia No date: Sciatica 08/02/2010: Secondary hyperparathyroidism ([facility]) 08/18/2019: Vitamin B 12 deficiency 01/19/2014: Vitamin D deficiency PSHx: PAST SURGICAL HISTORY No date: ADENOIDECTOMY PRIMARY <AGE 12 Comment: Adenoidectomy 08/19/1999: COLONOSCOPY FLX DX W/COLLJ SPEC WHEN PFRMD Comment: Colonoscopy 07/14/2009: COLONOSCOPY FLX DX W/COLLJ SPEC WHEN PFRMD Comment: Repeat in -201909/30/2019: COLONOSCOPY FLX DX W/COLLJ SPEC WHEN PFRMD Comment: Colonoscopy 07/12/2021: NECK SURGERY HX Comment: C4-T2 Fusion and C5-7 Laminectomy No date: PAST SURGICAL HISTORY OF; Bilateral Comment: partial knee replacemenet No date: TONSILLECTOMY PRIMARY/SECONDARY <AGE 12 Comment: Tonsillectomy Home Meds: Prior to Admission medications : Medication donepezil (ARICEPT) 5 mg tablet, Sig Take 1 tablet by mouth daily with breakfast., StartDate 10/18/23, End Date , Taking? Yes, Authorizing Provider Ashley Roberson MD Medication memantine (NAMENDA) 10 mg/5 mL oral liquid, Sig Take 2.5ml daily x1 week, then increase to 2.5ml twice dailiy x1 week, then increase to 5ml in AM and 2.5ml in PM x1 week, then increase to 5ml twice daily and continue., Start Date 09/10/23, End Date , Taking? Yes, Authorizing Provider Myrna Plata Jr., MD Medication levothyroxine (SYNTHROID) 25 mcg tablet, Sig Take 1 tablet by mouth once daily., Start Date 07/16/23, End Date , Taking? Yes, Authorizing Provider Yvonne Valente APRN.ICT ACCOUNT MANAGER Medication rosuvastatin (CRESTOR) 10 mg tablet, Sig Take 1 tablet by mouth daily at bedtime., StartDate 03/09/23, End Date , Taking? Yes, Authorizing Provider Yvonne Valente APRN.ICT ACCOUNT MANAGER Medication Ascorbic Acid (VITAMIN C) powd, Sig Take 1 Each by mouth once daily., Start Date 11/11/21,End Date , Taking? Yes, Authorizing Provider Yvonne Valente APRN.ICT ACCOUNT MANAGER Medication acetaminophen (TYLENOL) 325 mg tablet, Sig Take 2 tablets by mouth every 4 hours as needed for pain (acute post operative pain)., Start Date 07/18/21, End Date , Taking? Yes, Authorizing Provider Indira Villaseñor PA-C Medication cholecalciferol, vitamin D3, 50 mcg (2,000 unit) chew, Sig Take one daily with your largest meal, Start Date 01/23/23, End Date , Taking? , Authorizing Provider Lunane Craig MD Medication calcium citrate-vitamin D3 500 mg-12.5 mcg (500 unit) chew, Sig Take one tablet daily, Start Date 01/23/23, End Date , Taking? , Authorizing Provider Luanne Craig MD Medication Vitamin C with R-Lipoic Acid (MuscleGenes), Sig Use 8 pumps daily (1000mg of Vitamin C and 50 mg of R-Lipoate)., Start Date 01/09/22, End Date , Taking? , Authorizing Provider Rosangela Vaughn MD Medication PhytoMulti (Metagenics), Sig Take 2 tablets daily with food, Start Date 01/09/22, End Date , Taking? , Authorizing Provider Rosangela Vaughn MD Medication B-Complex Plus (Pure Encapsulations) - 1qD stress/energy/hormones/detox/weight loss, SigTake 1 capsule by mouth once daily., Start Date 11/17/21, End Date , Taking? , Authorizing Provider Rosangela Vaughn MD Other OTC med/supplements: None Medication Review: - ANY HIGH RISK MEDICATIONS (STOPP CRITERIA): YES ALLERGIES Allergen Reactions Amoxicillin Hives GI upset Oxycodone GI Upset Penicillins Hives Seasonal Allergies Itching Fall Review of Systems Difficulty chew/swallow: chews pills but this is not a change from what she was doing Pain: she does have some pain in her knees. But not much Tremor: her left hand is numb, from cervical issues, it is mostly in the left not the right., thereare some myclonic jerks. Incontinence - During the last 3 months did you leak urine? She does not have stress but sometimes has urge incontinence. Constipation/Change in bowel habits: NO Vision No vision problems reported Follows with sample processor:YES Hearing: - Hearing aid : Hearing impairment, no hearing aids Falls: .: Falls in the last 12 months: Positive: If + falls: she did have Physical Therapy. Physical Exam: General: Well-nourished, kempt Ambulatory: without assistance Mobility Aid: None Head: Normocephalic Eyes: conjunctiva/corneas normal, EOMI Ears: has b/l hearing aids Nose: clear Oropharynx: moist without lesions, teeth in good repair Neck: supple and no adenopathy Cardio: regular rate and rhythm Pulmonary: Lungs clear to auscultation bilaterally Extremities: Extremities normal. No deformities, edema, or skin discoloration. Musculoskeletal: Normal Gait Neuro:Deep Tendon reflexes :2/4 , Both Patient was unable to perform the lurias test Gait: Unsteadiness: YES Shuffling: NO Tremors: NO Slowness: YES Mini-Mental State Exam (MMSE): 23/30 CDR Dementia Scale 1) Subjective Memory Loss: YES 2) Measurable Memory Loss: YES 3) IADLs: YES 4) BADLs: NO Driving Safely: No < 50% 6) Medications: CHEI NMDA Level: CDR 1 Depression Screening/Evaluation: GDS:0/15 No Data Recorded Labs: patients thyroid and vit b12 are normal. Brain Imaging:None available today (F03.90) Dementia without behavioral disturbance (HCC) Comment: Plan: CONSULT TO GERIATRICS Assessment and Plan: I. Medical /Mental Status/Decision Making Capacity 1-Mentation # Subjective memory loss with measurable memory loss with MMSE 23/30, MOCA score of 14/30 ... Patient does have functional impairment with her iadls. 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 She does have apnea episodes per report which could be contributing to her cognitive issues. CDR 1 FAST 4 Plan: Patient and family are looking for preservation of function. - She is on the Aricept and Namenda and she is taking it on a regular basis. notes no decline but she is not doing all that much better - plan is to try it for a year and if there is no improvement we can try to get off the medication. - sleep apnea evaluation needs to completed and treated if positive 2-Mobility -- - has osteoporosis , is on prolia, calcium, encouraged her to take vit d daily. - she is slow and has fallen a couple time , completed Physical Therapy, but not doing Physical Therapy at home. Encouraged her to do 30 mins of daily physical activity and also to add strength training, and she agrees with the recommendations Plan - reminded for her of prolia shot next month and to take vit d - exercise as suggested . 3-Medications and chronic medical conditions - cont statin for reducing cvd risk Plan 4- Matters Most - [facility] has it in place Code status:full updated on ACP tab on EPIC. REFERRALS AND RECOMMENDATIONS I would like you to exercise every day for 30 mins Please get the sleep study done, sleep apnea may be worsening cognition. Cont the aricept and Namenda Vit d levels are mildly lowPlease take OT vit d3 2000 IU daily with food. Please remember to come for your prolia shot in December of 2023 Eat more of a mediterranean diet Ashley Roberson MD [facility] documented in this encounterM[facility]07-22-[facility] History of Present illness Narrative* Amada Ewing - 10/29/2023 2:05 PM EDT Fiona Gruber is identified through a medication adherence outreach initiative based on pharmacy claims data from [employer] (insurer) for Statin medication(s). Patient is reviewed 10/29/23 due to medication adherence concerns with the following medications (name, strength, sig): Rosuvastatin 10 mg 1 tablet every day . Per data/report, last fill date and days supply: Due 09/17/2023 Per reconcile dispense, last fill date and days supply: No data/Per portal 06/14/2023 for 90 days Per call to pharmacy, last picked up date and days supply: NA Contacted patient: No answer; left generic VM Outcome of review/outreach: (choose outcome source and status) - LVM for patient on husbands cell phone per [facility] notes. - [employer] message sent to patient Amada Ewing documented in this encounterM[facility]07-18-2024 Telephone encounter Note * Telephone Encounter - Efren Bower OCCA - 10/25/2023 11:26 AM EDT TC to patient and spouse who are informed of below and agreeable to see CV. Asking for provider to please place consult. RUDI Dailey [facility]07-18-[facility] Miscellaneous Notes* Telephone Encounter - Efren Bower OCCA - 10/25/2023 11:26 AM EDT TC to patient and spouse who are informed of below and agreeable to see CV. Asking for provider to please place consult. RUDI Dailey * Telephone Encounter - Rosy Shahid LPN - 10/18/2023 5:00 PM EDT Phone call placed, message not left as chart showing to speak with Dong or daughter Marlen. 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 Pt may benefit from follow up with CV clinic and consult can be placed if pt agrees. Myrna Plata MD documented in this encounterM[facility]07-12-2024 Telephone encounter Note * Telephone Encounter - Jennifer Ortez LPN - 10/19/2023 4:37 PM EDT Phone call to patient and was placed on speaker phone to review message with both patient and her . Both patient and her spouse voiced understanding and will repeat labs in one week. Jennifer Ortez LPN [facility] Miscellaneous Notes* Telephone Encounter - Jennifer Ortez LPN - 10/19/2023 4:37 PM EDT Phone call to patient and was placed on speaker phone to review message with both patient and her . Both patient and her spouse voiced understanding and will repeat labs in one week. Jennifer Ortez LPN * Telephone Encounter - Jennifer Ortez LPN - 10/19/2023 4:34 PM EDT ----- Message from Ashley Roberson MD sent at 10/19/2023 4:33 PM EDT ----- Please let patient know that she appears to have been very dehydrated the day she came to be testedbecause her creatinine and BUN were both elevated. Also her potassium was high. I see that even her magnesium is very elevated. If she is taking any supplements of magnesium I would ask her to quit the magnesium supplements immediately. For the hypokalemia hydrating her I think should be sufficient. I would like to recheck her blood work in a week's time documented in this encounterM[facility]07-12-2024 Telephone encounter Note * Telephone Encounter - Jennifer Ortez LPN - 10/19/2023 4:34 PM EDT ----- Message from Ashley Roberson MD sent at 10/19/2023 4:33 PM EDT ----- Please let patient know that she appears to have been very dehydrated the day she came to be testedbecause her creatinine and BUN were both elevated. Also her potassium was high. I see that even her magnesium is very elevated. If she is taking any supplements of magnesium I would ask her to quit the magnesium supplements immediately. For the hypokalemia hydrating her I think should be sufficient. I would like to recheck her blood work in a week's time [facility] Telephone encounter Note* Telephone Encounter - Ashley Roberson MD - 10/19/2023 4:33 PM EDT Labs ordered [facility] Miscellaneous Notes* Telephone Encounter - Ashley Roberson MD - 10/19/2023 4:33 PM EDT Labs ordered documented in this encounterM[facility] Hospital07-12-2024 Telephone encounter Note * Telephone Encounter - Elin Johnson MA - 10/19/2023 12:25 PM EDT Transferred to [facility] to schedule [facility] Miscellaneous Notes* Telephone Encounter - Elin Johnson MA - 10/19/2023 12:25 PM EDT Transferred to [facility] to schedule * Telephone Encounter - Yvonne Valente APRN.CNP - 10/19/2023 12:19 PM EDT Schedule with Dr. Roberson in [place] Yvonne Valente APRN.ICT ACCOUNT MANAGER * Telephone Encounter - Elin Johnson MA - 10/19/2023 10:01 AM EDT Per 10/18/23 OV note, pt would benefit from geriatric consult. Order pended, please file if agreeable. Elin Johnson MA documented in this encounterM[facility] Hospital07-12-2024 Telephone encounter Note * Telephone Encounter - Yvonne Valente APRN.CNP - 10/19/2023 12:19 PM EDT Schedule with Dr. Roberson in [place] Yvonne Valente APRN.ICT ACCOUNT MANAGER [facility]07-12-[facility] Telephone encounter Note* Telephone Encounter - Elin Johnson MA - 10/19/2023 10:01 AM EDT Per 10/18/23 OV note, pt would benefit from geriatric consult. Order pended, please file if agreeable. Elin Johnson MA [facility]07-[facility] Telephone encounter Note* Telephone Encounter - Rosy Shahid LPN - 10/18/2023 5:00 PM EDT Phone call placed, message not left as chart showing to speak with Dong or daughter Marlen. Rosy Shahid LPN [facility]07-[facility] History of Present illness Narrative* Ashley Roberson MD - 10/18/2023 12:20 PM EDT Reason for Visit Patient presents with: F/U 3 Month: Neuro and PT Fiona Gruber is a 82 year old female who presents here today for Above Complaints.. Health Maintenance ADVANCE DIRECTIVE DISCUSSION HPI Fiona is 83-year-old woman with a past medical history of essential tremor, balance disorder, essential hypertension, MTHFR gene mutation, hypothyroidism, osteoporosis CAA. Since the last time she saw me a lot has transpired. Since last visit diagnosed with osteoporosis and treated with Prolia, changed to Fosamax as it was thought Prolia may be causing worsening memory. Diagnosed with MTHFR mutation. Diagnosed with hypothyroidism and started on thyroxine. 10/30: Diarrhea: started a couple months ago, mostly in the night time, once is while she has it in the day. Watery and a lot of gas. Has not lost weight but gained some weight. No blood in diarrhea or changes in appetite She was started on aricept a couple months ago which she has been taking at night time, which coincides with her time line Leg cramps: has been having leg cramps at night , triggers seem to be dehydration. Has had it on and off for a long time but getting worse currently. Daughter started on magnesium. They have a new bottle that lights up when she needs to drink. CAA: she is following up with Neurology. Fiona Cottrell is a 81 year old female who presents today for routine follow up. Here with her . last year she had a cervical fracture post injury in a fall at home in June, she was taken to [facility] and they fused 6 vertebrae, had Physical Therapy at that time at [facility] for a week. Still has left hand numbness and jerky movements, neck does not hurt unless she is bent over a puzzle for a long time No problem-specific Assessment & Plan notes found for this encounter. PAST MEDICAL HISTORY Diagnosis Date Age related osteoporosis DEMETRA (acute kidney injury) (HCC) 08/18/2019 Arthritis of both knees 03/08/2015 Diarrhea Diverticulosis of colon (without mention of hemorrhage) Essential tremor 03/08/2016 Hypercalcemia 03/13/2018 Hyperparathyroidism, unspecified ([facility]) Hypothyroidism, acquired 05/22/2020 Irritable bowel syndrome Osteopenia Pill dysphagia Sciatica Secondary hyperparathyroidism (HCC) 08/02/2010 Vitamin B 12 deficiency 08/18/2019 Vitamin D deficiency 01/19/2014 PAST SURGICAL HISTORY Procedure Laterality Date ADENOIDECTOMY PRIMARY <AGE 12 Adenoidectomy COLONOSCOPY FLX DX W/COLLJ SPEC WHEN PFRMD 08/19/1999 Colonoscopy COLONOSCOPY FLX DX W/COLLJ SPEC WHEN PFRMD 07/14/2009 Repeat in -2019 COLONOSCOPY FLX DX W/COLLJ SPEC WHEN PFRMD 09/30/2019 Colonoscopy NECK SURGERY HX 07/12/2021 C4-T2 Fusion and C5-7 Laminectomy PAST SURGICAL HISTORY OF Bilateral partial knee replacemenet TONSILLECTOMY PRIMARY/SECONDARY <AGE 12 Tonsillectomy FAMILY HISTORY Problem Relation Age of Onset Arthritis Mother other (Dementia) Mother Heart Father [place], bi-pass surgery X-2/diabetes Headache Sister Thyroid Sister Calcium Disorder No Family History Social History Tobacco Use Smoking status: Never Smokeless tobacco: Never Substance Use Topics Alcohol use: Yes Comment: Occasionally wine Drug use: No Past medical history, appointments, medications, allergies reviewed. Pertinent Lab/Diagnostic Studies are reviewed and discussed today Current Outpatient Medications: memantine (NAMENDA) 10 mg/5 mL oral liquid levothyroxine (SYNTHROID) 25 mcg tablet donepezil (ARICEPT) 5 mg tablet rosuvastatin (CRESTOR) 10 mg tablet cholecalciferol, vitamin D3, 50 mcg (2,000 unit) chew calcium citrate-vitamin D3 500 mg-12.5 mcg (500 unit) chew Alendronate Sodium (FOSAMAX) 70 mg/75 mL solution Vitamin C with R-Lipoic Acid (MuscleGenes) PhytoMulti (Metagenics) Biocidin Advanced Formula ([employer]) B-Complex Plus (Pure Encapsulations) - 1qD stress/energy/hormones/detox/weight loss Ascorbic Acid (VITAMIN C) powd acetaminophen (TYLENOL) 325 mg tablet Current Facility-Administered Medications: denosumab 60 mg injection (PROLIA) [START ON 05/19/2024] denosumab 60 mg injection (PROLIA) Review of Systems CONSTITUTIONAL: No fevers, chills night sweats, unintended weight loss CARDIOVASCULAR: No chest pain, dyspnea, palpitations, orthopnea, PND, ankle edema. PULM: No dyspnea, unexplained cough. GI: No dysphagia/odynophagia, problematic reflux, constipation, diarrhea, changes in stool habits, hematochezia, melena. : No new urinary complaints, including dysuria, gross hematuria or pyuria. NEURO: No new balance problems, peripheral weakness/paresthesias or numbness of concern. Physical Exam BP 130/74 Pulse (!) 59 Resp 14 Wt 57.6 kg (127 lb) SpO2 96% BMI 22.50 kg/m General appearance: Well appearing, alert, in no acute distress, well nourished. Skin: Skin color, texture, turgor normal, no suspicious rashes or lesions Head: Normocephalic, no masses, lesions, tenderness or abnormalities Eyes: Anicteric sclera. Pupils are equally round and reactive to light. Extraocular movements are intact. Lungs: Lungs clear to auscultation. No wheezing, rhonchi, rales Heart: RRR without murmur, gallop, or rubs. Extremities: No deformities, edema, skin discoloration, clubbing or cyanosis. Good capillary refill. ASSESSMENT/PLAN: 1. Leg cramps - ICD9: 729.82, ICD10: R25.2 (primary diagnosis) - MAGNESIUM - COMPREHENSIVE METABOLIC PANEL - THYROID STIMULATING HORMONE 2. Diarrhea, unspecified type - ICD9: 787.91, ICD10: R19.7 Change the timing of Aricept from evening to morning, complete instructions were given to her aboutthe rationale of the morning dose completely 3. Iron deficiency - ICD9: 280.9, ICD10: E61.1 - IRON AND TIBC - FERRITIN 4. 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 Pt may benefit from follow up with CV clinic and consult can be placed if pt agrees. Myrna Plata MD [facility]07-[facility] History of Present illness Narrative* Merced Pinedo RT(R) - 10/16/2023 1:40 PM EDT Radiology Service Progress Note PATIENT NAME: Fiona Gruber DATE OF SERVICE: October 16, 2023 TIME: 1:42 PM PATIENT IDENTITY VERIFICATION COMPLETED USING TWO (2) IDENTIFIERS: Name and Date of confirmedby patient verbally. FALL SCREENING: Has the patient had 2 falls in the last year or 1 fall with injury or currently using an Ambulatory Assistive Device (Walker, Cane, Wheelchair, Crutches, etc.)? No PATIENT GENDER DATA: Female. status: : No status: NO. PATIENT RELEVANT IMPLANT DATA REVIEWED: Yes PATIENT PRESENTS WITH AN IMPLANTABLE OR ATTACHED CHILDREN'S NURSERY ASSISTANT: No RADIOLOGY DEPARTMENT: MR; Exam(s) Completed: Head: Routine Brain Spine: Cervical spine PERIPHERAL IV DATA: Not applicable SIGNED BY: RT Andre(Alvin) October 16, 2023 1:42 PM documented in this encounterM[facility]07-[facility]24 History of Present illness Narrative* Keenan Berger APRN.ICT ACCOUNT MANAGER - 10/08/2023 11:37 AM EDT Subjective HPI HPI Fiona Gruber is a 83 year old female who presents today for CC of right ear clogged, thinks has hearing aid piece left over. Has tried nothing for relief. Symptoms are worsened by nothing. Denies ear pain. .Patient presents with: Ear Problem: right ear -hearing aid stuck in ear x last night PAST MEDICAL HISTORY Diagnosis Date Age related osteoporosis DEMETRA (acute kidney injury) ([facility]) 08/18/2019 Arthritis of both knees 03/08/2015 Diarrhea Diverticulosis of colon (without mention of hemorrhage) Essential tremor 03/08/2016 Hypercalcemia 03/13/2018 Hyperparathyroidism, unspecified ([facility]) Hypothyroidism, acquired 05/22/2020 Irritable bowel syndrome Osteopenia Pill dysphagia Sciatica Secondary hyperparathyroidism ([facility]) 08/02/2010 Vitamin B 12 deficiency 08/18/2019 Vitamin D deficiency 01/19/2014 PAST SURGICAL HISTORY Procedure Laterality Date ADENOIDECTOMY PRIMARY <AGE 12 Adenoidectomy COLONOSCOPY FLX DX W/COLLJ SPEC WHEN PFRMD 08/19/1999 Colonoscopy COLONOSCOPY FLX DX W/COLLJ SPEC WHEN PFRMD 07/14/2009 Repeat in -2019 COLONOSCOPY FLX DX W/COLLJ SPEC WHEN PFRMD 09/30/2019 Colonoscopy NECK SURGERY HX 07/12/2021 C4-T2 Fusion and C5-7 Laminectomy PAST SURGICAL HISTORY OF Bilateral partial knee replacemenet TONSILLECTOMY PRIMARY/SECONDARY <AGE 12 Tonsillectomy ALLERGIES Amoxicillin, Oxycodone, Penicillins, and Seasonal Allergies MEDICATIONS memantine (NAMENDA) 10 mg/5 mL oral liquid^Take 2.5ml daily x1 week, then increase to 2.5ml twice dailiy x1 week, then increase to 5ml in AM and 2.5ml in PM x1 week, then increase to 5ml twice daily and continue.^Disp: 1080 mL^Rfl: 1 levothyroxine (SYNTHROID) 25 mcg tablet^Take 1 tablet by mouth once daily.^Disp: ^Rfl: 0 donepezil (ARICEPT) 5 mg tablet^Take 1 tablet by mouth daily at bedtime.^Disp: 30 tablet^Rfl: 11 rosuvastatin (CRESTOR) 10 mg tablet^Take 1 tablet by mouth daily at bedtime.^Disp: 90 tablet^Rfl: 3 cholecalciferol, vitamin D3, 50 mcg (2,000 unit) chew^Take one daily with your largest meal^Disp: 100 tablet^Rfl: 3 calcium citrate-vitamin D3 500 mg-12.5 mcg (500 unit) chew^Take one tablet daily^Disp: 100 tablet^Rfl: 3 B-Complex Plus (Pure Encapsulations) - 1qD stress/energy/hormones/detox/weight loss^Take 1 capsule by mouth once daily.^Disp: ^Rfl: 0 Ascorbic Acid (VITAMIN C) powd^Take 1 Each by mouth once daily.^Disp: ^Rfl: acetaminophen (TYLENOL) 325 mg tablet^Take 2 tablets by mouth every 4 hours as needed for pain (acute post operative pain).^Disp: ^Rfl: Alendronate Sodium (FOSAMAX) 70 mg/75 mL solution^Take 75 mL by mouth one time a week.^Disp: 900 mL^Rfl: 3 (Patient not taking: Reported on 09/10/2023) Vitamin C with R-Lipoic Acid (MuscleGenes)^Use 8 pumps daily (1000mg of Vitamin C and 50mg of R-Lipoate).^Disp: ^Rfl: PhytoMulti (Metagenics)^Take 2 tablets daily with food^Disp: ^Rfl: (Patient not taking: Reported on09/10/2023) Biocidin Advanced Formula (Yuyuto)^Take 5 Drops by mouth three times daily.^Disp: ^Rfl: FAMILY HISTORY Problem Relation Age of Onset Arthritis Mother other (Dementia) Mother Heart Father [place], bi-pass surgery X-2/diabetes Headache Sister Thyroid Sister Calcium Disorder No Family History Social History Tobacco Use Smoking status: Never Smokeless tobacco: Never Substance Use Topics Alcohol use: Yes Comment: Occasionally wine Drug use: No ROS Objective Blood pressure 118/70, pulse 66, temperature 36.6 C (97.9 F), resp. rate 16, weight 58.2 kg (128 lb4.9 oz), SpO2 96%. Physical Exam Constitutional: General: She is not in acute distress. Appearance: She is not toxic-appearing or diaphoretic. HENT: Head: Normocephalic and atraumatic. Right Ear: Hearing and external ear normal. Left Ear: Hearing, tympanic membrane, ear canal and external ear normal. Ears: Comments: Initially unable to see right tm d/t foreign body presence Procedure: Provider/curette/alligator forceps After procedure right canal clear and right tm normal Pulmonary: Effort: Pulmonary effort is normal. No accessory muscle usage or respiratory distress. Neurological: Mental Status: She is alert and oriented to person, place, and time. ASSESSMENT/PLAN: 1. Foreign body of right ear, initial encounter - ICD9: 931, E915, ICD10: T16.1XXA Successful right ear foreign body removal via provider/tools Discussed proper ear hygiene F/u for any new issues. Keenan Berger APRN.CNP documented in this encounterM[facility]06-[facility] History of Present illness Narrative* Myrna Plata Jr., MD - 09/10/2023 3:41 PM EDT NEW PATIENT (CONSULT) HISTORY AND PHYSICAL EXAM PRIMARY CARE PHYSICIAN: Ashley Roberson MD REASON FOR CONSULT: See below REFERRING PHYSICIAN: Yvonne Valente APRN.CNP CHIEF COMPLAINT: Memory problems, falls, worsening Consultation requested by Yvonne Valente APRN.CNP for an opinion regarding chief complaint of Patient presents with: New Patient: New Patient presented with daughter Marlen, balance issues, memory concerns short term onset 2019. and my final recommendations will be communicated back to the requesting physician by way of sharedmedical record or letter via [place] mail. HISTORY OF PRESENT ILLNESS: Fiona Gruber is a 83 year old female, BMI 22.5 kg/m2 with a PMH significant for that below who presents for balance and memory issues. Patient seen by Dr. Terrazas last in 05/17/21 (neurology) and per note: Patient is 81-year-old female who presents today with her daughter for the first time since November 2019. Since that time, a lot has transpired with her neurologic health. Her history is significant for hypercalcemia (now treated), secondary hyperparathyroidism, B12 deficiency, tremor. Since last visit diagnosed with osteoporosis and treated with Prolia, changed to Fosamax as it was thought Prolia may be causing worsening memory. Diagnosed with MTHFR mutation. Diagnosed with hypothyroidism and started on thyroxine. The last time I saw her her MoCA score was 26/30. I ordered MRI of the brain. There were a few punctate cortical susceptibility lesions. MRI brain repeated yesterday shows significant progression of this consistent with cerebral amyloid angiopathy. There has also been mild progression of microvascular disease which I would rate at least moderate in severity. Ventricular dilatation is proportionate to central and cortical volume loss.. I explained today in basic terms what CAA is, and explained the major risk factors for microvascular disease. Her daughter denies hypertension, hyperlipidemia, diabetes, former smoker still unclear if it is due to the MTHFR mutation, or if she does have episodes of hypertension as her systolic blood pressure today is 151 mmHg. She had a study called standard EEG brain map performed at the [facility]. The significance of this study is unclear. In general [facility] appears to be a holistic approach to cognitive decline. I explained to the daughter that she is welcome to continue following there but at a minimum I think her mother needs to see a cerebrovascular specialistfor the CAA and someone at the [facility] brain health for her overall worsening cognitive function. Ultimately I explained that both the microvascular disease in the CAA will continue to progress unless risk factors are identified and addressed. Whether she decides to continue treatment at the [facility] or at the [facility] is up to her but I did request that if she continues with the [facility], that she get all study results to us for reference. She may follow-up with me after being seen at the [facility] brain health in the cerebrovascular center, unless she chooses instead to continue at the [facility] brain wellness center. PLAN 1. Recommend consult with [facility] for appearance of CAA on MRI brain 05/16/2021. Last MRI brain does not have SWI sequences, so cannot compare to prior study for rate of progression. 2. Recommend consult to [facility]. Overall patient's daughter unsure if she wants to continue following at [facility] with Dr. Malik, or [facility] moving forward. I did explain that both the microvascular changes and the CAA are causes of progressive memory loss. CAA can also cause seizure activity, which is not a concern. Pt did see CV later that lynnette and per note of Dr. Valeri Baker on 06/09/21: Impression : Short-term memory changes ; incidentally noted cortical microhemorrhages mostly bifrontal --- without any prior history of spontaneous cerebral bleed; history of multiple mechanical falls prior to 2019 falls-without any overt subarachnoid hemorrhage or subdural hemorrhages --- Microhemorrhages unknown significance--considering her age 81 -possible cerebral amyloid angiopathy --- No prior history of liver disease/thrombocytopenia Plan : --- Discussed possible cerebral amyloid angiopathy --Patient independent of walking; no motor deficits; has completed fall precaution assessment with physical therapy in the past. --No significant coronary artery disease hypertension or atherosclerotic changes --- Total cholesterol 200 LDL 123 (06/07/2021) ----diet control and repeat testing in 3 to 6 months; and can consider statin therapy at that time; at 2018 visit LDL 93 cholesterol 200 --No previous TIA or ischemic stroke --For baseline cognitive function can follow-up with primary neurologist Dr. Terrazas or [facility] --No atherosclerotic risk factors at this time to start primary prevention antiplatelet regimen --In future if any indication for anticoagulants--- repeat MRI brainSWI sequence : noncontrast study to assess if any progression in microhemorrhages --Prior MRI brain in 2019 --- GRE sequence- few areas of microhemmorhages ; however no SWI changes seen. Last MRI brain 2021. Note also in 2021 patient with C spine fx due to fall at C6. Daughter presents with patient. Feels that memory and balance getting worse since the beginning of this year. However, rather than the slow progression, decline now abrupt and significant. Can forgetday, or what was told, and when has fever has difficulties coming up with words -- note usually in setting of UTI. Any type of virus results in an acute AMS. Note that since the C6 fracture left handhas been numb - unclear if from C spine or trauma directly to the hand following the fall. Also lots of jerking in the L hand. Patient also having more imbalance with 2 falls this past winter. Statesrecalls one fall in which she was at the kitchen sink and went to move leg and crossed it and next thing she fell. Daughter notes at least 6 falls in which she has struck head. Cognitively, bad sort term memory per daughter and feels she cannot be left alone at all. Never remembers anything she just did. does all the cooking and if patient goes to cook, she has difficulties. Does not drive - gave it up about 2018. MODIFIED MOCA: Immediate recall: 08/11 Number repeat: 2/2 Sentence repeat: 2 Serial 7s: 0 Abstract: 04/10 Orientation: 2023, Sunday, [place], ? 07/13 Delayed recall: 0 Namin/3 Cube copy: 0 Clock drawin/3 Total: No bladder incontinence. Mother with dementia. REVIEW OF SYSTEMS GENERAL:No weight loss, malaise or fevers. HEENT:Negative for frequent or significant headaches, No changes in hearing or vision, no nose bleeds or other nasal problems NECK:Negative for lumps, goiter, pain and significant neck swelling RESPIRATORY: Negative for cough, wheezing or shortness of breath. CARDIOVASCULAR: Negative for chest pain, leg swelling or palpitations. GASTROINTESTINAL: Negative for abdominal discomfort, blood in stools or black stools or change in bowel habits GENITOURINARY: No history of dysuria, frequency or incontinence MUSCULOSKELETAL: Negative for joint pain or swelling, back pain or muscle pain. NEUROLOGIC:See HPI. SKIN:Negative for lesions, rash, and itching. LAB/IMAGING: Reviewed and include: WBC (k/uL) Date Value 06/19/2023 6.04 RBC (m/uL) Date Value 06/19/2023 4.82 Hemoglobin (g/dL) Date Value 06/19/2023 13.9 Hematocrit (%) Date Value 06/19/2023 42.9 MCV (fL) Date Value 06/19/2023 89.0 MCH (pg) Date Value 06/19/2023 28.8 MCHC (g/dL) Date Value 06/19/2023 32.4 RDW-CV (%) Date Value 06/19/2023 14.0 Platelet Count (k/uL) Date Value 06/19/2023 194 MPV (fL) Date Value 06/19/2023 11.9 Glucose (mg/dL) Date Value 06/19/2023 87 BUN (mg/dL) Date Value 06/19/2023 21 Creatinine (mg/dL) Date Value 06/19/2023 0.82 Sodium (mmol/L) Date Value 06/19/2023 140 Potassium (mmol/L) Date Value 06/19/2023 4.2 Chloride (mmol/L) Date Value 06/19/2023 106 (H) CO2 (mmol/L) Date Value 06/19/2023 28 Protein, Total (g/dL) Date Value 06/19/2023 7.0 Albumin (g/dL) Date Value 06/19/2023 4.3 Calcium, Total (mg/dL) Date Value 06/19/2023 10.0 Alkaline Phosphatase (U/L) Date Value 06/19/2023 67 Bilirubin, Total (mg/dL) Date Value 06/19/2023 0.3 AST (U/L) Date Value 06/19/2023 28 ALT (U/L) Date Value 06/19/2023 22 MEDICATIONS: levothyroxine (SYNTHROID) 25 mcg tablet^Take 1 tablet by mouth once daily.^Disp: ^Rfl: 0 donepezil (ARICEPT) 5 mg tablet^Take 1 tablet by mouth daily at bedtime.^Disp: 30 tablet^Rfl: 11 rosuvastatin (CRESTOR) 10 mg tablet^Take 1 tablet by mouth daily at bedtime.^Disp: 90 tablet^Rfl: 3 cholecalciferol, vitamin D3, 50 mcg (2,000 unit) chew^Take one daily with your largest meal^Disp: 100 tablet^Rfl: 3 calcium citrate-vitamin D3 500 mg-12.5 mcg (500 unit) chew^Take one tablet daily^Disp: 100 tablet^Rfl: 3 B-Complex Plus (Pure Encapsulations) - 1qD stress/energy/hormones/detox/weight loss^Take 1 capsule by mouth once daily.^Disp: ^Rfl: 0 Ascorbic Acid (VITAMIN C) powd^Take 1 Each by mouth once daily.^Disp: ^Rfl: acetaminophen (TYLENOL) 325 mg tablet^Take 2 tablets by mouth every 4 hours as needed for pain (acute post operative pain).^Disp: ^Rfl: Alendronate Sodium (FOSAMAX) 70 mg/75 mL solution^Take 75 mL by mouth one time a week.^Disp: 900 mL^Rfl: 3 (Patient not taking: Reported on 09/10/2023) Vitamin C with R-Lipoic Acid (MuscleGenes)^Use 8 pumps daily (1000mg of Vitamin C and 50mg of R-Lipoate).^Disp: ^Rfl: PhytoMulti (j-Grab)^Take 2 tablets daily with food^Disp: ^Rfl: (Patient not taking: Reported on09/10/2023) Biocidin Advanced Formula (Yuyuto)^Take 5 Drops by mouth three times daily.^Disp: ^Rfl: HISTORIES PAST MEDICAL HISTORY Diagnosis Date Age related osteoporosis DEMETRA (acute kidney injury) (HCC) 08/18/2019 Arthritis of both knees 03/08/2015 Diarrhea Diverticulosis of colon (without mention of hemorrhage) Essential tremor 03/08/2016 Hypercalcemia 03/13/2018 Hyperparathyroidism, unspecified (HCC) Hypothyroidism, acquired 05/22/2020 Irritable bowel syndrome Osteopenia Pill dysphagia Sciatica Secondary hyperparathyroidism (HCC) 08/02/2010 Vitamin B 12 deficiency 08/18/2019 Vitamin D deficiency 01/19/2014 FAMILY HISTORY Problem Relation Age of Onset Arthritis Mother other (Dementia) Mother Heart Father [place], bi-pass surgery X-2/diabetes Headache Sister Thyroid Sister Calcium Disorder No Family History SOCIAL HISTORY Social History Tobacco Use Smoking status: Never Smokeless tobacco: Never Substance Use Topics Alcohol use: Yes Comment: Occasionally wine Drug use: No PHYSICAL EXAMINATION BP 136/74 Pulse 93 Resp 16 Wt 57.6 kg (127 lb) SpO2 96% BMI 22.50 kg/m GENERAL EXAM: General appearance: NAD, pleasant. HEENT: NC/AT, nasal congestion absent, no oral lesions, membranes moist. NECK: No masses, supple. Lungs: CTA bilaterally. CV: RRR nl S1, S2. No carotid bruits. Extr: No cyanosis, clubbing or edema. Skin: Cool to touch. NEUROLOGICAL EXAM: General: Awake, alert, oriented x3 (person,place,time), fluent, no dysarthria; MOCA as above. CN: PERRL, fundi with no evidence of papilledema, EOMI and without nystagmus, VFF to confrontation,facial sensation and strength are normal and symmetric, hearing is intact to finger rub bilaterally, palate and tongue movements are intact and symmetric. SCM and trapezius strength normal. Motor: Normal tone, decreased bulk in L thenar, strength (5/5) bilaterally (throughout extremities x4). Reflexes: Reflexes brisk in the LUE. Plantars equivocal. +Tafoya's in LUE. Coordination: FNF, RENEE, HTS intact. No tremors. Sensation: Light touch, vibration, temperature intact throughout. No evidence of neglect. Gait: Stable with normal stride and arm swing. Romberg normal. Assessment and Plan: ASSESSMENT/PLAN: 1. Dementia without behavioral disturbance, psychotic disturbance, mood disturbance, or anxiety, unspecified dementia severity, unspecified dementia type (HCC) - ICD9: 294.20, ICD10: F03.90 (primary diagnosis) Patient with long standing history of cognitive decline - most significant impairment being short term memory. While history of B12 deficiency and thyroid disorder, both have been corrected with no improvement of symptoms. Family history of dementia and suspect neurodegenerative process given person and family history. However, given more abrupt decline in recent months question if possible superimposed vascular component, CAA, or if secondary to recurrent head traumas (post concussive or underlying SDH). Last head image 2 years ago. Suspect transient episodes of increased confusion likely due to viruses such as UTI with daughter confirming dx of UTI with most events. Will further evaluate f or intracranial changes that may be contributing to symptoms including vascular event, and progression of atrophy by means of MRI brain. Will request volumetric studies which would further aid in diagnosis a neurodegenerative process. MOCA is worse than it was 2+ years ago. Will continue Aricept 5mg daily but will start on Namenda 5mg daily and titrate up by 5mg weekly to goal of 10mg BID. Note pt cannot swallow tablets or capsules and thus requesting oral liquid form of Namenda (10mg/5ml). SE and ADRs d/w pt and her daughter. 2. Balance disorder - ICD9: 781.99, ICD10: R26.89 3. Shaking - ICD9: 781.0, ICD10: R25.1 4. Cervical myelopathy (HCC) - ICD9: 721.1, ICD10: G95.9 5. Ataxia - ICD9: 781.3, ICD10: R27.0 6. Cerebral amyloid angiopathy (CODE) - ICD9: 277.39, 437.9, ICD10: I68.0 7. History of cervical fracture - ICD9: V15.51, ICD10: Z87.81 8. Recurrent falls - ICD9: V15.88, ICD10: R29.6 9. History of recent traumatic injury of head - ICD9: V15.52, ICD10: Z87.820 As with cognitive decline, difficult to determine exact cause of gait disturbance and other physical complaints at this time. That said, suspect Cervical cord injury (C spine fxs) likely cause. Further supported by LUE symptoms of numbness and jerking that correlation with levels of C spine injury. In addition UMN signs on exam of LUE. Will further evaluate with MRI C spine. No signs of neuropathy or focal weakness. No vertigo or other symptoms preceding falls. No s/s to suggest NPH triad. Thatsaid, still concern for possible intracranial cause of gait disturbance such as bleed or ischemic event that may also contribute to cognitive decline. Again, risk factors for such including possible CAA. To further evaluate will get MRI brain as noted above. Patient will follow up after imaging studies in approximately 8-12 weeks or sooner prn. Questions answered and concerns addressed. They will contact us if further question in the future. Myrna Plata MD I spent a total of 90 minutes on the date of the service which included preparing to see the patient, [id number] patient care, completing clinical documentation, obtaining and/or reviewing separately obtained history, performing a medically appropriate examination, counseling and educating the pat ient/family/caregiver, ordering medications, tests, or procedures, independently interpreting results (not separately reported), and communicating results to the patient/family/caregiver. * Rosy Shahid LPN - 09/10/2023 3:31 PM EDT 09/10/2023 Sleep Apnea Probability Snores loudly: No Tired, fatigued or sleepy in daytime: Yes Stops breathing or choking/gasping during sleep: No High blood pressure: No Sleep Apnea Probability Score: 36 (Sleep study not recommended) documented in this [facility]05-[facility] History of Present illness Narrative* Burak Wilson, PT - 08/17/2023 4:42 PM EDT Images from the original note were not included. Episode Visit Count: 4 Therapist That Will Accept/Oversee The Plan Of Care: Burak Wilson Start of Care Date: 07/17/23 Onset Date: 04/09/23 Plan of Care Certification Date: 07/17/23 Next Certification Due Date: 09/16/23 [facility] PHYSICAL THERAPY DISCONTINUANCE OF CARE PLAN OF CARE UPDATE: Assessment: Fiona Gruber is discontinued from Physical Therapy services due to goal achievement. and maximal benefit.. Patient was seen for 4 visits from Start of Care Date: 07/17/23 to 08/17/2023 and treatment included: Therapeutic exercise, Neuromuscular re-education, and Self-shelter management. Goals updated on 08/17/2023. Goals for Episode of Care: created on 07/17/23 through 09/16/23 [place] in home exercise program. Met Patient will Improve Timed Up and Go to 12.5 seconds to demonstrate decreased risk of falling. Met Normal gait. Met Patient will increase balance to 10 seconds/Normal with static standing balance and allow patient to demonstrate appropriate balance strategies to reduce risk for falls. Met Patient will report no falls. Met Improve score on 30 Second Chair Stand to 12 repetitions to reflect decreased fall risk. Met Perform insurance broker with decreased report of symptoms / pain. Met Patient Goals: Pt would like to be able to do chores w/ less help. SUBJECTIVE: Patient doing well overall. Notes no falls or near falls since starting therap,y continues to do exercises as prescribed. Overall feels less wobbly and sure footed. Pain: Pain Pain Level: 0 PROMIS Scales 07/26/2023 06/09/2021 Higher is Better Phys Func - Score 47 (within normal limits) 43 (mild dysfunction) Phys Func - Percentile 38 24 Self-Eff Symptom - Score 51 (Average) Self-Eff Symptom - Percentile 54 T-scores: mean of general population = 50. 5 points is clinically meaningfully difference Percentiles provide an indication of how the patient's score ranks in relation to the general population. Higher percentile rankings indicate better function/quality of life. 50th percentile is the average of the general population and indicates half of respondents had a worse score. OBJECTIVE MEASURES WITH LEVEL OF FUNCTION: Functional Performance Test Results 30 Second Chair Stand Test: 12 reps Timed Up and Go (sec): 12.3 sec 4 Stage Balance Test Narrow base of support (sec): 10 sec Semi-tandem base of support (sec): 10 sec Tandem base of support (sec): 10 sec Single leg stance - right (sec): 10 sec Single leg stance - left (sec): 10 sec TREATMENT: Therapeutic Exercise: 1: SciFit seat 10 x 6 min (1:1 entire time, discussed progress towards therapy goals and patient provided update) 2: STS x12 3: Objective measures obtained Skilled Intervention: Patient was educated in proper exercise technique and purpose for exercises. Skilled judgment was used in selection of appropriate interventions. Provided written instruction for home exercise program to facilitate proper performance and compliance. Correct performance of therapeutic exercises was facilitated with verbal, visual, and tactile cuing. Billing Therapeutic Exercise Treatment Minutes: 25 Skilled Treatment Time Minutes (timed and untimed codes): 25 Total Session Time (minutes): 25 Session Start Time : 1325 Session Stop Time : 1350 Burak Wilson PT * Burak Wilson PT - 08/16/2023 1:44 PM EDT Program_ID:[id number] Access Code: [email or web address] URL: [email or web address] Date: 08-16-2023 Prepared By: Burak Wilson Program Notes Exercises - Sit to Stand - 1 x daily - 7 x weekly - 3 sets - 12-15 reps - Sidelying Hip Abduction - 1 x daily - 7 x weekly - 3 sets - 10 reps - Clamshell - 1 x daily - 7 x weekly - 3 sets - 10 reps - Supine Active Straight Leg Raise - 1 x daily - 7 x weekly - 3 sets - 10 reps - Forward Step Up - 1 x daily - 7 x weekly - 3 sets - 10 reps [facility] History of Present illness Narrative* Burak Wilson PT - 08/02/2023 3:50 PM EDT Episode Visit Count: 3 Therapist That Will Accept/Oversee The Plan Of Care: Burak Wilson Start of Care Date: 07/17/23 Onset Date: 04/09/23 Plan of Care Certification Date: 07/17/23 Next Certification Due Date: 09/16/23 REHABILITATION AND SPORTS THERAPY PHYSICAL THERAPY TREATMENT NOTE ASSESSMENT: Fiona Valeri Davismike tolerated the session with no issues. She demonstrated difficulty with dynamic balance w/ soft surfaces and improvements in sit to stand quality from chair w/ arm rests. Thepatient will continue to benefit from ongoing skilled physical therapy to progress toward set goals. PLAN FOR NEXT VISIT: Progress static balance exercise and implement more dynamic balance exercise. Implement eye-hand coordination exercises as well. SUBJECTIVE: Pt reports to clinic in great mood. No reports of falls. No complaints of feeling offtoday. Pain: Pain Pain Level: 0 OBJECTIVE MEASURES WITH LEVEL OF FUNCTION: Demonstrated impaired dynamic balance. Heavy reliance on arms when completing completing sit-> stand transfer. TREATMENT: Therapeutic Exercise: 1: SciFit seat 10 x 6 min 2: STS 3x12 3: Steps up, B lateral and downs GRN step 1.5# x20 Skilled Intervention: Patient was educated in proper exercise technique and purpose for exercises. Skilled judgment was used in selection of appropriate interventions. Correct performance of therapeutic exercises was facilitated with verbal and tactile cuing. Educated patient on rationale for performing exercises in regards to including balance, increase ease of ADL, and ROM and function . Neuromuscular Re-Education: 1: semi-tandem 2x30 Full tandem 1x30 2: Rocker board x15 ea side and forward; 2x30 holds in both directions too finger tip holds 3: Rd foam pad hip march and side kicks 3x10 1.5# 4: Balance beam walks in parallel bars x4 laps each way, finger tip holds 5: Ball tosses in seated postiion w/ off center throws intermittently for seated balance challenge x35 Skilled Intervention: Skilled judgment used to assess appropriate program for balance and coordination activity. Education in proprioceptive/kinesthetic awareness during sitting, standing, and dynamic activities. Education and demonstration for posture and positioning for tone management. Ensured patient safety with use of gait belt w/ intermittent swapping of CGA and SBA from PT Billing Therapeutic Exercise Treatment Minutes: 17 Neuromuscular Re-Education Treatment Minutes: 30 Skilled Treatment Time Minutes (timed and untimed codes): 47 Total Session Time (minutes): 47 Session Start Time : 1459 Session Stop Time : 1546 MELODY Weber Supervising therapist was present and guided the care of the patient for the entire session on thisdate. All documentation was reviewed and agreed upon. Burak Wilson PT documented in this encounterM[facility]04-18-[facility]24 History of Present illness Narrative* Burak Wilson PT - 07/26/2023 3:03 PM EDT Episode Visit Count: 2 Therapist That Will Accept/Oversee The Plan Of Care: Burak Wilson Start of Care Date: 07/17/23 Onset Date: 04/09/23 Plan of Care Certification Date: 07/17/23 Next Certification Due Date: 09/16/23 REHABILITATION AND SPORTS THERAPY PHYSICAL THERAPY TREATMENT NOTE ASSESSMENT: Fiona Gruber tolerated the session with expected muscle soreness and no issues. She demonstrated difficulty with balance activity and standing up from chair w/o UE assist. The patient will continue to benefit from ongoing skilled physical therapy to progress toward set goals. PLAN FOR NEXT VISIT: Progress difficulty of exercise as to challenge balance and LE strength. SUBJECTIVE: Pt reports to clininc w/ general complaints of imbalance. Reports no near falls, but feels off. Pain: Pain Pain Level: 0 OBJECTIVE MEASURES WITH LEVEL OF FUNCTION: Pt had knee valgus in step exercise. CGA with balance exercises TREATMENT: Therapeutic Exercise: 1: SciFit seat 10 x 5min 2: STS 3x12 seconds (CGA FOR ALL EXERCISE (Not SciFit)) 3: Steps up and downs GRN step x20 Skilled Intervention: Patient was educated in proper exercise technique and purpose for exercises. Skilled judgment was used in selection of appropriate interventions. Educated patient on rationale for performing exercises in regards to including balance and increaseease of ADL. Neuromuscular Re-Education: 1: Rocker board x15 ea side and forward; 2x30 holds in both directions too 2: Semi-tandem stance 3x30 sec 3: Rd foam pad hip march and side kicks 3x10 Skilled Intervention: Skilled judgment used to assess appropriate program for balance and coordination activity. Education in proprioceptive/kinesthetic awareness during standing. Ensured patient safety with use of gait belt Correct performance of home program was facilitated with verbal, visual, and tactile cueing. Billing Therapeutic Exercise Treatment Minutes: 16 Neuromuscular Re-Education Treatment Minutes: 16 Skilled Treatment Time Minutes (timed and untimed codes): 32 Total Session Time (minutes): 32 Session Start Time : 1316 Session Stop Time : 1348 MELODY Weber Supervising therapist was present and guided the care of the patient for the entire session on thisdate. All documentation was reviewed and agreed upon. Burak Wilson PT documented in this encounterM[facility]04-[facility] History of Present illness Narrative* Burak Wilson PT - 07/17/2023 11:12 AM EDT Images from the original note were not included. Episode Visit Count: 1 Therapist That Will Accept/Oversee The Plan Of Care: Burak Wilson Start of Care Date: 07/17/23 Onset Date: 04/09/23 Plan of Care Certification Date: 07/17/23 Next Certification Due Date: 09/16/23 Patient Identified by Name and Date of : Yes REHABILITATION AND SPORTS THERAPY PHYSICAL THERAPY EVALUATION PLAN OF CARE: Assessment: Fiona Gruber presents with chief complaint of balance loss that interferes with risingfrom a chair, standing, walking, walking in the community, walking in the house, stair negotiation,recreational activities, physical activities, cleaning, cooking, dressing . She presents with impairments in ADL's, balance, gait, and stress management. PROMIS (Patient-Reported Outcomes MeasurementInformation System) scores were reviewed and identified as within normal limits. Prognosis for therapy is Fair due to: multiple co- morbidities, clinical presentation, advanced age, coping skills, limited compliance with previous therapy, limited support system, memory deficits, poor understanding of deficits, poor historian, Prognosis may be improved by good support system/ coping skills. She will benefit from skilled therapy services to meet the goals established for this plan of care as noted below. Assessment Fall Risk : Inactive at risk Classification Movement System Diagnosis: Force Production Deficit Secondary Movement System Diagnosis: Sensory Selection and Weighting Deficit Goals for Episode of Care: created on 07/17/23 through 09/16/23 [place] in home exercise program. Patient will Improve Timed Up and Go to 12.5 seconds to demonstrate decreased risk of falling. Normal gait. Patient will increase balance to 10 seconds/Normal with static standing balance and allow patient to demonstrate appropriate balance strategies to reduce risk for falls. Patient will report no falls. Improve score on 30 Second Chair Stand to 13 repetitions to reflect decreased fall risk. Perform insurance broker with decreased report of symptoms / pain. Patient Goals: Pt would like to be able to do chores w/ less help. Planned Interventions, Frequency, and Duration: Current Frequency: 1x/week Duration: 8 weeks Total Number of Visits Planned: 8 Planned Treatment Interventions: Therapeutic exercise (28006), Self-shelter management (73641) PLAN FOR NEXT VISIT: Assess tolerance and adherence to HEP; begin proprioceptive balance training in office w/ STS training. Patient demonstrates fair understanding of plan of care and treatment. The above goals and plan of care were discussed and agreed upon by patient/family. SUBJECTIVE: Pt reports to clinic w/ infrequent sensations of loss of balance. Reports last sensation of fallinglast year. Pt was confused and was mis-remembering locations she was at for previous episodes of care. Pt did not have a health partner with her to confirm details of care. Pt repeatedly noted the tremor in the L hand, as well as how infrequent the balance impairments are. Pt noted no pain when ques tioned by PT. (Pt denies any altered B&B function, or sensation. Pt denies any feelings of overall weakness or numbess/tingling.) Patient Goals: Pt would like to be able to do chores w/ less help. Functional Limitations: rising from a chair, standing, walking, walking in the community, walking in the house, stair negotiation, recreational activities, physical activities, cleaning, cooking, dressing Falls History # of falls in past year: 1 # of falls resulting in an injury in past year: 1 Pain: Pain Pain Level: 0 Description: Other: See comment (Reports no pain, only infrequent falls) PROMIS Scales 06/09/2021 Higher is Better Phys Func - Score 43 (mild dysfunction) Phys Func - Percentile 24 T-scores: mean of general population = 50. 5 points is clinically meaningfully difference Percentiles provide an indication of how the patient's score ranks in relation to the general population. Higher percentile rankings indicate better function/quality of life. 50th percentile is the average of the general population and indicates half of respondents had a worse score. OBJECTIVE MEASURES WITH LEVEL OF FUNCTION: Cognition Cognition: Communication Deficits, Orientation Deficits, Attention Deficits, Safety Judgement Communication Deficits: Receptive Deficits Orientation Deficits: Confused Attention Deficits: Difficulty maintaining selective or sustained attention, Difficulty with divided or alternating attention, Adequate for daily routines Safety Judgment: Appropriate awareness of safety precautions, Decreased awareness of need for assistance Spine Observations Spine Observations: Prominent process on C6; location for spinal hardware. UE and Cervical Strength Strength Tested: Myotome Cervical/Shoulder R Elbow Extension (C7): 5/5 R Elbow Flexion (C6): 4+/5 R Wrist Extension: 5/5 R Finger Adduction/Interossei (T1): 5/5 L Elbow Extension (C7): 5/5 L Elbow Flexion (C6): 4+/5 L Wrist Extension: 5/5 L Finger Adduction/Interossei (T1): 5/5 Mobility Sit To Stand: Modified Independent Stand To Sit: Modified Independent Gait Weight Bearing Status: FWB Gait: Stand By Assistance Gait Device: None Gait Deviations: General Deviations General Deviations/Observations: Narrow Base of Support, Step length decreased, Lateral sway increased Functional Performance Test Results 30 Second Chair Stand Test: 4 reps (with use of arms) Timed Up and Go (sec): 16.66 sec 4 Stage Balance Test Narrow base of support (sec): 10 sec Semi-tandem base of support (sec): 10 sec Tandem base of support (sec): 2 sec Single leg stance - right (sec): 0 sec Single leg stance - left (sec): 0 sec Vitals BP: 163/92 Pulse: 73 Education: Education Education Provided: Yes, see treatment interventions for education provided Education Provided To: Patient Education Mode/Type: Explanation/Discussion, Demonstration Response to Education/Teach Back: States/Identifies, Requires Review/Additional Education TREATMENT: PT Treatment Interventions: Therapeutic Exercise, Self-Long Term Management Evaluation Evaluation Therapeutic Exercise: 1: *Clamshells 3x10 2: *SL leg lifts 3x10 3: *Supine SL raise 3x10 4: *STS w/ arm use 3x8. Skilled Intervention: Patient was educated in proper exercise technique and purpose for exercises. Skilled judgment was used in selection of appropriate interventions. Educated patient on rationale for performing exercises in regards to including balance, increase ease of ADL, and ROM and function . Patient education as noted. Self-Long Term Management: 1: Pt was edu in HEP and importance of having external support from other person at home for STS exercise. Pt was edu to take rest breaks as needed for HEP. Pt was educated in objecitve findings in relation to balance. Skilled Intervention: Skilled judgment in the selection of proper modification for activity of daily living/home management based on clinical presentation, deficits, and needs. Educated the patient regarding recommendations and provided written instruction to facilitate compliance. Reviewed and educated patient on additions/changes for home program Billing * Evaluation Moderate Complexity: 1 Unit Therapeutic Exercise Treatment Minutes: 13 Self-Care/Home Management Treatment Minutes: 12 Skilled Treatment Time Minutes (timed and untimed codes): 37 Total Session Time (minutes): 37 Session Start Time : 1006 Session Stop Time : 1043 MELODY Weber Supervising therapist was present and guided the care of the patient for the entire session on thisdate. All documentation was reviewed and agreed upon. Burak Wilson PT * Burak Wilson, PT - 07/17/2023 10:33 AM EDT Program_ID:[id number] Access Code: [email or web address] URL: [email or web address] Date: 07-17-2023 Prepared By: Burak Wilson Program Notes Exercises - Sit to Stand - 1 x daily - 7 x weekly - 3 sets - 8 reps - Sidelying Hip Abduction - 1 x daily - 7 x weekly - 3 sets - 10 reps - Clamshell - 1 x daily - 7 x weekly - 3 sets - 10 reps - Supine Active Straight Leg Raise - 1 x daily - 7 x weekly - 3 sets - 10 reps documented in this encounterM[facility]04-[facility] History of Present illness Narrative* Yvonne Valente APRN.ICT ACCOUNT MANAGER - 07/16/2023 9:02 AM EDT CC: Patient presents with: Follow Up HPI Fiona Gruber is a 83 year old female who presents today for memory, shaking and balance, concerns.Was seen 2 weeks ago and returns today to review blood work and do MMSE. Memory concerns: last visit Shaking has been increasing over the last few months. Shaking mainly to left hand when trying to use her hand. Is right handed. Denies weakness, numbness, injury, or edema. Memory issues progressing over the past few years but seems to worsen over the last few months. Does not always recognize the route when is driving, forgets where she is, why she is there, forgets names, and forgets dates. does cooking and driving. Also with balance issues over the past few years but had large amount this past Sunday. Has continued since Sunday. Feel going up the steps a few days ago. Denies loss of consciousness or hitting herhead. Just hit her left knee but is no longer painful. Never increased levothyroxine to extra 1/2 tablet on Sundays and levels have normalized. Denies any new concerns, no further falls but still with feeling unsteady. REVIEW OF SYSTEMS General: no fevers, no chills, no night sweats, no recurrent infections, no change in appetite, no change in energy, and no significant changes in weight Respiratory: no cough, no wheezing, no shortness of breath, no hemoptysis Cardiovascular: no chest pain, no chest pressure, no palpitations, and no swelling PAST MEDICAL HISTORY Diagnosis Date Age related osteoporosis DEMETRA (acute kidney injury) ([facility]) 08/18/2019 Arthritis of both knees 03/08/2015 Diarrhea Diverticulosis of colon (without mention of hemorrhage) Essential tremor 03/08/2016 Hypercalcemia 03/13/2018 Hyperparathyroidism, unspecified ([facility]) Hypothyroidism, acquired 05/22/2020 Irritable bowel syndrome Osteopenia Pill dysphagia Sciatica Secondary hyperparathyroidism ([facility]) 08/02/2010 Vitamin B 12 deficiency 08/18/2019 Vitamin D deficiency 01/19/2014 PAST SURGICAL HISTORY Procedure Laterality Date ADENOIDECTOMY PRIMARY <AGE 12 Adenoidectomy COLONOSCOPY FLX DX W/COLLJ SPEC WHEN PFRMD 08/19/1999 Colonoscopy COLONOSCOPY FLX DX W/COLLJ SPEC WHEN PFRMD 07/14/2009 Repeat in COLONOSCOPY FLX DX W/COLLJ SPEC WHEN PFRMD 09/30/2019 Colonoscopy NECK SURGERY HX 07/12/2021 C4-T2 Fusion and C5-7 Laminectomy PAST SURGICAL HISTORY OF Bilateral partial knee replacemenet TONSILLECTOMY PRIMARY/SECONDARY <AGE 12 Tonsillectomy ALLERGIES Amoxicillin, Oxycodone, Penicillins, and Seasonal Allergies MEDICATIONS levothyroxine (SYNTHROID) 25 mcg tablet^Take 1 tablet by mouth once daily.^Disp: ^Rfl: 0 rosuvastatin (CRESTOR) 10 mg tablet^Take 1 tablet by mouth daily at bedtime.^Disp: 90 tablet^Rfl: 3 cholecalciferol, vitamin D3, 50 mcg (2,000 unit) chew^Take one daily with your largest meal^Disp: 100 tablet^Rfl: 3 calcium citrate-vitamin D3 500 mg-12.5 mcg (500 unit) chew^Take one tablet daily^Disp: 100 tablet^Rfl: 3 Alendronate Sodium (FOSAMAX) 70 mg/75 mL solution^Take 75 mL by mouth one time a week.^Disp: 900 mL^Rfl: 3 Vitamin C with R-Lipoic Acid (MuscleGenes)^Use 8 pumps daily (1000mg of Vitamin C and 50mg of R-Lipoate).^Disp: ^Rfl: PhytoMulti (Metagenics)^Take 2 tablets daily with food^Disp: ^Rfl: Biocidin Advanced Formula (Yuyuto)^Take 5 Drops by mouth three times daily.^Disp: ^Rfl: B-Complex Plus (Pure Encapsulations) - 1qD stress/energy/hormones/detox/weight loss^Take 1 capsule by mouth once daily.^Disp: ^Rfl: 0 Ascorbic Acid (VITAMIN C) powd^Take 1 Each by mouth once daily.^Disp: ^Rfl: acetaminophen (TYLENOL) 325 mg tablet^Take 2 tablets by mouth every 4 hours as needed for pain (acute post operative pain).^Disp: ^Rfl: FAMILY HISTORY Problem Relation Age of Onset Arthritis Mother other (Dementia) Mother Heart Father [place], bi-pass surgery X-2/diabetes Headache Sister Thyroid Sister Calcium Disorder No Family History Social History Tobacco Use Smoking status: Never Smokeless tobacco: Never Substance Use Topics Alcohol use: Yes Comment: Occasionally wine Drug use: No PHYSICAL EXAM BP 128/70 (BP Site: Left Arm, BP Position: Sitting, BP Cuff Size: Regular Adult) Pulse 88 Temp 36.6 C (97.9 F) Resp 12 Ht 160 cm (5' 3) Wt 56.7 kg (125 lb) SpO2 98% BMI 22.14 kg/m General Appearance: well appearing, in no acute distress, alert Pysch: mood and affect broad and appropriate Skin: Skin color, texture, turgor normal for age; Eyes: PERRLA, EOM's intact, conjunctiva pink and moist, no icterus, sclera white, non-injected Neck: Thyroid normal size and symmetric without palpable nodules, Neck supple, No adenopathy Lymph nodes: No cervical lymphadenopathy and No supraclavicular lymphadenopathy Lungs: Lungs clear to auscultation. No wheezing, rhonchi, rales. Heart: RRR without murmur, gallop, or rubs. No ectopy Neurological: Gait normal but needing assistance to get up on exam table. Reflexes normal and symmetric. Sensation intact., Negative findings: speech normal, muscle tone normal, muscle strength normal 07/16/20[address] [place] [address] Orientation [address] 5 Registration 3 ATTENTION & CALCULATION 3 Recall 1 Language 2 Repeat 0 FOLLOW 3-STEP COMMAND 3 Read & Obey 1 WRITE A SENTENCE 1 Copy Pentagons 0 Score: 21 Health maintenance reviewed with patient: Advance Directive Discussion due on 04/09/2023 Diabetes Screening due on 06/18/2026 DTaP,Tdap,Td Vaccine(2 - Td or Tdap) due on 07/31/2027 Bone Density Screening Completed Influenza Vaccine Completed RSV Vaccine Completed Shingrix Vaccine Completed Covid-19 Vaccine Completed Pneumococcal Vaccine: 65+ Completed Colorectal Cancer Screening Discontinued DATA REVIEWED: Most recent labs ASSESSMENT/PLAN: 1. Dementia without behavioral disturbance (HCC) - ICD9: 294.20, ICD10: F03.90 (primary diagnosis) - MMSE but patient trying to make jokes during assessment so unsure if she would be able to answer some questions in appropriate amount of time - DONEPEZIL 5 MG TABLET - CONSULT TO NEUROLOGY - if no appointment with neurology within 6 weeks follow up with me 2. Balance disorder - ICD9: 781.99, ICD10: R26.89 Needs strengthening and improvement in balance to lower risk of falls - CONSULT TO NEUROLOGY - CONSULT TO PHYSICAL THERAPY 3. Shaking - ICD9: 781.0, ICD10: R25.1 - unsure on cause. Neuro assessment normal - CONSULT TO NEUROLOGY 4. Hypothyroidism, acquired - ICD9: 244.9, ICD10: E03.9 - Instructed patient on importance of taking on an empty stomach either first thing in the morning or at bedtime. - LEVOTHYROXINE 25 MCG TABLET TSH stable Prescription instructions reviewed with patient as applicable. Potential red flag symptoms discussed with the patient. Reviewed appropriate action plan to take if red flag symptoms occur. Patient agreeable to treatment plan. Yvonne Valente APRN.CNP documented in this encounterM[facility]03-21-2024 Miscellaneous Notes* Telephone Encounter - Efren Bower OCCA - 06/28/2023 12:59 PM EDT TC to patient who verbalized understanding of providers message below. Patient will come in to giveurine sample later today. RUDI Dailey * Telephone Encounter - Yvonne Valente APRN.CNP - 06/28/2023 11:58 AM EDT Blood work in normal ranges. For some reason urine culture was not completed. I am ordering this and she can stop by any time to have completed. Thank you Yvonne Valente APRN.CNP documented in this encounterM[facility]03-20-2024 History of Present illness Narrative* Yvonne Valente APRN.CNP - 06/27/2023 11:27 AM EDT CC: Patient presents with: Recheck: 4 month follow up HPI Fiona Gruber is a 83 year old female who presents today for routine follow up but with patient and daughter on phone with multiple concerns. Reports shaking, memory concerns, and balance issues. Shaking has been increasing over the last few months. Shaking mainly to left hand when trying to use her hand. Is right handed. Denies weakness, numbness, injury, or edema. Memory issues progressing over the past few years but seems to worsen over the last few months. Does not always recognize the route when is driving, forgets where she is, why she is there, forgets names, and forgets dates. does cooking and driving. Also with balance issues over the past few years but had large amount this past Sunday. Has continued since Sunday. Feel going up the steps a few days ago. Denies loss of consciousness or hitting herhead. Just hit her left knee but is no longer painful. has noticed increased urinary incontinence. Denies weakness, edema, fever, chills, numbness, severe headaches, fever, chills, pain with urination, abdominal pain, or syncope. reports a few days ago had a few moments of chest pain while sitting. Patient pointed to her epigastric region and shortly self resolved. Denies any other concerns like nausea, sweating, fatigue, palpitations, or edema. Hypothyroidism: taking medication as ordered. Denies any abnormal change in weight or energy. Osteoporosis: On prolia injections and seeing endocrinology. REVIEW OF SYSTEMS See HPI PAST MEDICAL HISTORY Diagnosis Date Age related osteoporosis DEMETRA (acute kidney injury) (HCC) 08/18/2019 Arthritis of both knees 03/08/2015 Diarrhea Diverticulosis of colon (without mention of hemorrhage) Essential tremor 03/08/2016 Hypercalcemia 03/13/2018 Hyperparathyroidism, unspecified (HCC) Hypothyroidism, acquired 05/22/2020 Irritable bowel syndrome Osteopenia Pill dysphagia Sciatica Secondary hyperparathyroidism (HCC) 08/02/2010 Vitamin B 12 deficiency 08/18/2019 Vitamin D deficiency 01/19/2014 PAST SURGICAL HISTORY Procedure Laterality Date ADENOIDECTOMY PRIMARY <AGE 12 Adenoidectomy COLONOSCOPY FLX DX W/COLLJ SPEC WHEN PFRMD 08/19/1999 Colonoscopy COLONOSCOPY FLX DX W/COLLJ SPEC WHEN PFRMD 07/14/2009 Repeat in COLONOSCOPY FLX DX W/COLLJ SPEC WHEN PFRMD 09/30/2019 Colonoscopy NECK SURGERY HX 07/12/2021 C4-T2 Fusion and C5-7 Laminectomy PAST SURGICAL HISTORY OF Bilateral partial knee replacemenet TONSILLECTOMY PRIMARY/SECONDARY <AGE 12 Tonsillectomy ALLERGIES Amoxicillin, Fall Allergy [Other], Oxycodone, Penicillins, and Seasonal Allergies MEDICATIONS rosuvastatin (CRESTOR) 10 mg tablet^Take 1 tablet by mouth daily at bedtime.^Disp: 90 tablet^Rfl: 3 cholecalciferol, vitamin D3, 50 mcg (2,000 unit) chew^Take one daily with your largest meal^Disp: 100 tablet^Rfl: 3 calcium citrate-vitamin D3 500 mg-12.5 mcg (500 unit) chew^Take one tablet daily^Disp: 100 tablet^Rfl: 3 Alendronate Sodium (FOSAMAX) 70 mg/75 mL solution^Take 75 mL by mouth one time a week.^Disp: 900 mL^Rfl: 3 levothyroxine (SYNTHROID) 25 mcg tablet^Take 1 tablet by mouth once daily.^Disp: 90 tablet^Rfl: 3 Vitamin C with R-Lipoic Acid (MuscleGenes)^Use 8 pumps daily (1000mg of Vitamin C and 50mg of R-Lipoate).^Disp: ^Rfl: PhytoMulti (j-Grab)^Take 2 tablets daily with food^Disp: ^Rfl: Biocidin Advanced Formula ([employer])^Take 5 Drops by mouth three times daily.^Disp: ^Rfl: B-Complex Plus (Pure Encapsulations) - 1qD stress/energy/hormones/detox/weight loss^Take 1 capsule by mouth once daily.^Disp: ^Rfl: 0 Ascorbic Acid (VITAMIN C) powd^Take 1 Each by mouth once daily.^Disp: ^Rfl: acetaminophen (TYLENOL) 325 mg tablet^Take 2 tablets by mouth every 4 hours as needed for pain (acute post operative pain).^Disp: ^Rfl: FAMILY HISTORY Problem Relation Age of Onset Arthritis Mother other (Dementia) Mother Heart Father [place], bi-pass surgery X-2/diabetes Headache Sister Thyroid Sister Calcium Disorder No Family History Social History Tobacco Use Smoking status: Never Smokeless tobacco: Never Substance Use Topics Alcohol use: Yes Comment: Occasionally wine Drug use: No PHYSICAL EXAM BP 152/84 Pulse 90 Resp 16 Wt 57.6 kg (127 lb) SpO2 97% BMI 22.50 kg/m General Appearance: well appearing, in no acute distress, alert Pysch: mood and affect broad and appropriate Skin: Skin color, texture, turgor normal for age; Eyes: PERRLA, EOM's intact, conjunctiva pink and moist, no icterus, sclera white, non-injected Neck: Thyroid normal size and symmetric without palpable nodules, Neck supple, No adenopathy Lymph nodes: No cervical lymphadenopathy and No supraclavicular lymphadenopathy Lungs: Lungs clear to auscultation. No wheezing, rhonchi, rales. Heart: RRR without murmur, gallop, or rubs. No ectopy Abdomen: Abdomen soft, non-tender. Bowel sounds normal. No masses, organomegaly Neurological: Gait slow and deliberate. Reflexes normal and symmetric. Sensation intact., Negative findings: speech normal, mental status intact, muscle tone normal, muscle strength normal. No tremors noted on exam. Health maintenance reviewed with patient: Advance Directive Discussion due on 04/09/2023 Diabetes Screening due on 06/18/2026 DTaP,Tdap,Td Vaccine(2 - Td or Tdap) due on 07/31/2027 Bone Density Screening Completed Influenza Vaccine Completed RSV Vaccine Completed Shingrix Vaccine Completed Covid-19 Vaccine Completed Pneumococcal Vaccine: 65+ Completed Colorectal Cancer Screening Discontinued DATA REVIEWED: Most recent labs EKG Interpretation: RHYTHM: Normal sinus rhythm at 85 beats per minute and sinus arrythmia AXIS: Normal axis INTERVALS: Normal NC interval QRS COMPLEX: Right bundle branch block ST SEGMENT: Normal ST-T segments QT INTERVAL: Normal COMPARED WITH PRIOR: unchanged ASSESSMENT/PLAN: 1. Memory change - ICD9: 780.93, ICD10: R41.3 (primary diagnosis) - probable underlying dementia but with recent worsening possibly related to unknown uti or other cause - routine in 2 weeks for MMSE and re-evaluation may need to do imaging and see neuro. - UA DIP, URINE (POC) - patient unable to provide sample in office so will return to do in lab - URINALYSIS WITH MICROSCOPIC, REFLEX CULTURE - VITAMIN B12 BLOOD 2. Balance disorder - ICD9: 781.99, ICD10: R26.89 As above Consulted to PT 3. Tremor - ICD9: 781.0, ICD10: R25.1 None noted on exam. Possible essential tremor? Will further evaluate at follow up 4. Chest pain, unspecified type - ICD9: 786.50, ICD10: R07.9 More epigastric region with no other symptoms. Patient with poor memory and denying any concerns soEKG completed without any change from previous - ECG COMPLETE 5. Hypothyroidism, acquired - ICD9: 244.9, ICD10: E03.9 - slightly increasing levothyroxine - Instructed patient on importance of taking on an empty stomach either first thing in the morning or at bedtime. - LEVOTHYROXINE 25 MCG TABLET - TSH BLD - T4 FREE/FREE THYROX 6. Age-related osteoporosis without current pathological fracture - ICD9: 733.01, ICD10: M81.0 - continue with recommendations by endocrinology. - Reviewed the need for Calcium and Vitamin D supplements and weight bearing exercise as tolerated Prescription instructions reviewed with patient as applicable. Potential red flag symptoms discussed with the patient. Reviewed appropriate action plan to take if red flag symptoms occur. Patient agreeable to treatment plan. Yvonne Valente APRN.CNP documented in this encounter[facility]03-15-[facility]24 History of Present illness Narrative* Kailee Castillo LPN - 06/22/2023 11:29 AM EDT Patient presents for Prolia injection. Denies any problems at this time. Patient instructed on any SE of medication, verbalized understanding and agreed to proceed with treatment. Tolerated injectionwell. Kailee Castillo LPN documented in this encounterM[facility]03-04-2024 Miscellaneous Notes* Telephone Encounter - Elin Lawrence PA-C - 06/11/2023 2:09 PM EST New order signed. Elin Lawrence PA-C * Telephone Encounter - Kailee Castillo LPN - 06/11/2023 8:47 AM EST Pt scheduled to receive Prolia injection on 06/21/23, current order is set to begin in May of 2024. [address] new order for 2023. Kailee Castillo LPN documented in this encounterM[facility]03-01-2024 Miscellaneous Notes* Telephone Encounter - Angelique Trevino LPN - 06/08/2023 12:01 PM EST Called [employer] and this has been approved from today until a year. PA approval [id number]. Pt notified and appt arranged. * Telephone Encounter - Elin Lawrence PA-C - 06/06/2023 3:00 PM EST See staff message from Dr. Craig: Place the order for the drug in her medical record. Next, make sure that the drug is covered by the patient's insurance -- usually someone in my officecalls the insurance company. Once it is approved, notify the pharmacy that services your office. They should provide you the drug a few days ahead of time -- just keep it refrigerated until just a few minutes before giving the injection. There is only one dose -- 60 mg -- and it comes in a single-dose injector; it is given SQ It is to be given every 6 months -- there is a 30-day window of forgiveness but after that there can be rapid bone loss and an increased risk for spine fracture. I tell all of my patients before starting Prolia that if they want to stop the Prolia at any time to tell me BEFORE their next injection so that another, longer acting drug ( I use Reclast) to lock in the bone improvements. Could you assist with this? Checking with insurance coverage and ordering to our pharmacy that services our office- I understand you do this ordering, is that correct? I have the rx pending but unsure as to where it needs sent or how to go about this exactly? Elin Lawrence PA-C documented in this encounterM[facility]11-30-2023 Miscellaneous Notes* Telephone Encounter - Shanell Lyles LPN - 03/08/2023 1:47 PM EST Patient has been identified by name and date of : Spouse phones for refill(s): Requested Prescriptions Pending Prescriptions Disp Refills rosuvastatin (CRESTOR) 10 mg tablet 90 tablet 3 Sig: Take 1 tablet by mouth daily at bedtime. Date of last office visit in primary care: 02/26/2023 Date of next office visit in primary care: 06/27/2023 Last 2 Encounter Wt Readings: Date: Wt: 02/26/2023 56.2 kg (124 lb) 12/08/2022 57.7 kg (127 lb 3.2 oz) Previous labs/tests for medication: Cholesterol: HDL Cholesterol (mg/dL) Date Value 11/22/2022 64 03/11/2018 58 LDL Cholesterol (mg/dL) Date Value 11/22/2022 61 03/11/2018 93 ALT (U/L) Date Value 11/22/2022 28 12/20/2020 11 Non HDL Cholesterol (mg/dL) Date Value 11/22/2022 70 03/11/2018 110 Please advise. Thank you. Shanell Lyles LPN. Rx was sent for 30 to mail away pharmacy needs changed to 90 day please. documented in this encounterM[facility]11-21-2023 Miscellaneous Notes* Telephone Encounter - Diane Terrazas - 02/27/2023 1:26 PM EST Patient has been identified by name and date of : No Patient phones for refill(s): Requested Prescriptions Pending Prescriptions Disp Refills rosuvastatin (CRESTOR) 10 mg tablet 30 tablet 5 Sig: Take 1 tablet by mouth daily at bedtime. Date of last office visit in primary care: 02/26/2023 Date of next office visit in primary care: 06/27/2023 Last 2 Encounter Wt Readings: Date: Wt: 02/26/2023 56.2 kg (124 lb) 12/08/2022 57.7 kg (127 lb 3.2 oz) Previous labs/tests for medication: Cholesterol: HDL Cholesterol (mg/dL) Date Value 11/22/2022 64 03/11/2018 58 LDL Cholesterol (mg/dL) Date Value 11/22/2022 61 03/11/2018 93 ALT (U/L) Date Value 11/22/2022 28 12/20/2020 11 Non HDL Cholesterol (mg/dL) Date Value 11/22/2022 70 03/11/2018 110 Please advise. Thank you. Diane Terrazas. * Telephone Encounter - Izabella Nunez - 02/27/2023 1:15 PM EST Patient has been identified by name and date of : Yes Requested Prescriptions Pending Prescriptions Disp Refills rosuvastatin (CRESTOR) 10 mg tablet 30 tablet 5 Sig: Take 1 tablet by mouth daily at bedtime. Asking for 90 day prescription. RX INSTRUCTIONS: Patient aware RX will be sent to pharmacy. No need to notify patient. Izabella Nunez documented in this encounterM[facility]it[facility]11-20-2023 History of Present illness Narrative* Elin Lawrenec PA-C - 02/26/2023 8:30 AM EST CC: Patient presents with: Follow Up: labs and questions about med- fosamax HPI Fiona Gruber is a 82 year old female who presents today for 3 mo routine f/u. LV was on 11/22/22. HLD- recently started on crestor, labs rechecked at prior visit. LDL came down nicely. Patient reports that she is tolerating this fine, without any myalgias or other adverse effects. Age-related osteoporosis-saw endocrinology (Dr. Craig) for consult on 01/23/2023, who felt alendronate was not the best choice for her and recommended denosumab (prolia) every 6 months. Previouslythought memory changes were related to prolia Hx of cervical spine fracture status post fall a couple years. Per endo, advised- low dose CaCIT 500 mg daily - low dose D3 2000 IU daily with largest meal --they just wanted to make sure that this was okay given patient's history. History significant for hypercalcemia in 2019, which they thought to be related to vitamin D toxicity -- was so severe she couldn't stand up, had severe memory issues, couldn't use the bathroom on her own. So daughter, Marlen (on the phone) states they were a little apprehensive about starting vitamin D and calcium REVIEW OF SYSTEMS See HPI All other systems negative. PAST MEDICAL HISTORY Diagnosis Date Age related osteoporosis DEMETRA (acute kidney injury) (HCC) 08/18/2019 Arthritis of both knees 03/08/2015 Diarrhea Diverticulosis of colon (without mention of hemorrhage) Essential tremor 03/08/2016 Hypercalcemia 03/13/2018 Hyperparathyroidism, unspecified (HCC) Hypothyroidism, acquired 05/22/2020 Irritable bowel syndrome Osteopenia Pill dysphagia Sciatica Secondary hyperparathyroidism (HCC) 08/02/2010 Vitamin B 12 deficiency 08/18/2019 Vitamin D deficiency 01/19/2014 PAST SURGICAL HISTORY Procedure Laterality Date ADENOIDECTOMY PRIMARY <AGE 12 Adenoidectomy COLONOSCOPY FLX DX W/COLLJ SPEC WHEN PFRMD 08/19/1999 Colonoscopy COLONOSCOPY FLX DX W/COLLJ SPEC WHEN PFRMD 07/14/2009 Repeat in -2019 COLONOSCOPY FLX DX W/COLLJ SPEC WHEN PFRMD 09/30/2019 Colonoscopy NECK SURGERY HX 07/12/2021 C4-T2 Fusion and C5-7 Laminectomy PAST SURGICAL HISTORY OF Bilateral partial knee replacemenet TONSILLECTOMY PRIMARY/SECONDARY <AGE 12 Tonsillectomy ALLERGIES Amoxicillin, Fall Allergy [Other], Oxycodone, Penicillins, and Seasonal Allergies MEDICATIONS cholecalciferol, vitamin D3, 50 mcg (2,000 unit) chew Take one daily with your largest meal calcium citrate-vitamin D3 500 mg-12.5 mcg (500 unit) chew Take one tablet daily Alendronate Sodium (FOSAMAX) 70 mg/75 mL solution Take 75 mL by mouth one time a week. levothyroxine (SYNTHROID) 25 mcg tablet Take 1 tablet by mouth once daily. rosuvastatin (CRESTOR) 10 mg tablet Take 1 tablet by mouth daily at bedtime. Vitamin C with R-Lipoic Acid ([employer]) Use 8 pumps daily (1000mg of Vitamin C and 50mg of R-Lipoate). PhytoMulti ([employer]) Take 2 tablets daily with food Biocidin Advanced Formula ([employer]) Take 5 Drops by mouth three times daily. B-Complex Plus (Pure Encapsulations) - 1qD stress/energy/hormones/detox/weight loss Take 1 capsule by mouth once daily. Ascorbic Acid (VITAMIN C) powd Take 1 Each by mouth once daily. acetaminophen (TYLENOL) 325 mg tablet Take 2 tablets by mouth every 4 hours as needed for pain (acute post operative pain). FAMILY HISTORY Problem Relation Age of Onset Arthritis Mother other (Dementia) Mother Heart Father [place], bi-pass surgery X-2/diabetes Headache Sister Thyroid Sister Calcium Disorder No Family History Social History Tobacco Use Smoking status: Never Smokeless tobacco: Never Substance Use Topics Alcohol use: Yes Comment: Occasionally wine Drug use: No PHYSICAL EXAM BP 130/56 (BP Site: Right Arm, BP Position: Sitting, BP Cuff Size: Regular Adult) Pulse 97 Temp36.3 C (97.3 F) Resp 12 Ht 160 cm (5' 3) Wt 56.2 kg (124 lb) SpO2 98% BMI 21.97 kg/m General Appearance: well appearing, in no acute distress, alert Psych: mood and affect broad and appropriate Skin: Skin color, texture, turgor normal for age Lungs: Lungs clear to auscultation. No wheezing, rhonchi, rales. Heart: RRR without murmur, gallop, or rubs. Extremities: No gross deformities, significant edema, skin discoloration, clubbing or cyanosis. Neurological: Gait normal. No focal neurological deficits. Sensation grossly intact. ASSESSMENT/PLAN: 1. Mixed hyperlipidemia - ICD9: 272.2, ICD10: E78.2 (primary diagnosis) - Controlled - Continue current medications - Counseled on healthy diet and regular exercise 2. Vitamin D insufficiency - ICD9: 268.9, ICD10: E55.9 Mildly low on most recent labs. Proceed with plan per drawbridge operator to start on 2000 IUs vitamin D once daily 3. History of hypercalcemia - ICD9: V12.29, ICD10: Z86.39 Per patient and 's request, we will recheck calcium in 1 month after she starts recommended dosage - CALCIUM IONIZED BLOOD 4. Age-related osteoporosis without current pathological fracture - ICD9: 733.01, ICD10: M81.0 Currently on alendronate; Discussed pros and cons of switching treatment to Prolia, as advised by Endo. We will finish out alendronate as planned, and patient will let me know what she decides, if she wants to pursue Prolia injections or not. Discussed sending Endo a message to see if she is able to order the Prolia injections, if they are to be obtained here at a [facility] facility [facility] - Reviewed the need for Calcium and Vitamin D supplements and weight bearing exercise as tolerated Follow-up routine issues in 3 to 4 months Prescription instructions reviewed with patient as applicable. Potential red flag symptoms discussed with the patient. Reviewed appropriate action plan to take if red flag symptoms occur. Patient agreeable to treatment plan. Elin Lawrence PA-C documented in this encounterM[facility]10-17-2023 NoteHNO ID: [id number] Author: Luanne Craig MD Service: ? Author Type: Physician Type: Progress Notes Filed: 01/23/2023 1:28 PM Note Text: ENDOCRINE CALCIUM CLINIC REFERRAL Patient seen at the request of / referral from:Elin Lawrence PA-C RE:OP IF THIS IS A VIRTUAL VISIT: I have communicated my name and licensure. The patient's identity and location were verified. Either the patient or their legal sales representative sales manager has been informed of the risks, benefits, and alternatives based on a remote evaluation, and consents to proceed remotely per [place] law. I will communicate my recommendations and findings via shared medical record and/or USPS CC: HPI: Fiona Gruber is a 82 year old female who presents in referral for my expert opinion regarding OP treated with Alendronate for a few years. - started with shots Prolia -- 2 injections only and then switched - developed memory issues - changed to alendronate weekly since fall of 2020 - Calcium: no milk, limited yogurt, no supplement with ? elevated calcium -- likely D toxicity - D supplement -- none at this point and she is low REVIEW OF SYSTEMS GENERAL: wt is rel stabled HEENT: vision is ok ENDO/NECK: Denies jaw pain, but cannot swallow pills CARDIOVASCULAR: GI: : NEPHROLITHIASIS: ENDO/MECHANIC AND WELDER: ENDO/MUSCULOSKELETAL/BONE: falls and unstable; L hand is numb FRACTURES: neck fused due to a fall -- crushed vertebra; -- due to a fall SKIN: PSYCH: HEMATOLOGY/LYMPHOLOGY NEURO: unstable with falls Risk Factors for Osteoporosis and Fracture: Personal history of fracture since age 40, Loss of height of one inch or more, Postmenopausal, Frequent falls, and Weight of less than 127 pounds as an adult Risk Factors for Falls - Advanced age noted - Last known fall: recently - Mobility limited - Mental status: mild cognitive changes - Communication / Sensory: - Behavioral MEDICAL HISTORY: PAST MEDICAL HISTORY Diagnosis Date Age related osteoporosis DEMETRA (acute kidney injury) ([facility]) 08/18/2019 Arthritis of both knees 03/08/2015 Diarrhea Diverticulosis of colon (without mention of hemorrhage) Essential tremor 03/08/2016 Hypercalcemia 03/13/2018 Hyperparathyroidism, unspecified ([facility]) Hypothyroidism, acquired 05/22/2020 Irritable bowel syndrome Osteopenia Pill dysphagia Sciatica Secondary hyperparathyroidism ([facility]) 08/02/2010 Vitamin B 12 deficiency 08/18/2019 Vitamin D deficiency 01/19/2014 SURGICAL HISTORY: PAST SURGICAL HISTORY Procedure Laterality Date ADENOIDECTOMY PRIMARY Adenoidectomy COLONOSCOPY FLX DX W/COLLJ SPEC WHEN PFRMD 08/19/1999 Colonoscopy COLONOSCOPY FLX DX W/COLLJ SPEC WHEN PFRMD 07/14/2009 Repeat in COLONOSCOPY FLX DX W/COLLJ SPEC WHEN PFRMD 09/30/2019 Colonoscopy NECK SURGERY HX 07/12/2021 C4-T2 Fusion and C5-7 Laminectomy PAST SURGICAL HISTORY OF Bilateral partial knee replacemenet TONSILLECTOMY PRIMARY/SECONDARY Tonsillectomy FAMILY HISTORY: Family History Problem Relation Age of Onset Arthritis Mother other (Dementia) Mother Heart Father [place], bi-pass surgery X-2/diabetes Headache Sister Thyroid Sister Calcium Disorder No Family History SOCIAL HISTORY: Social History Marital status: Spouse name: Years of education: Number of children: Social History Main Topics Drug use: Unknown DXA: LABS: Component Latest Ref Rng AND Units 11/22/2022 Protein, Total 6.3 - 8.0 g/dL 7.1 Albumin 3.9 - 4.9 g/dL 4.4 Calcium 8.5 - 10.2 mg/dL 9.7 Bilirubin, Total 0.2 - 1.3 mg/dL 0.3 Alkaline Phosphatase 34 - 123 U/L 75 AST 13 - 35 U/L 34 ALT 7 - 38 U/L 28 Glucose 74 - 99 mg/dL 77 BUN 7 - 21 mg/dL 24 (H) Creatinine 0.58 - 0.96 mg/dL 0.79 Sodium 136 - 144 mmol/L 143 Potassium 3.7 - 5.1 mmol/L 4.3 Chloride 97 - 105 mmol/L 107 (H) CO2 22 - 30 mmol/L 26 Anion Gap 9 - 18 mmol/L 10 eGFR >=60 mL/min/1.73mA? 75 Vitamin D 25 Hydroxy 31.0 - 80.0 ng/mL 30.9 (L) Current Medications Current Outpatient Medications on File Prior to Visit Medication Sig Alendronate Sodium (FOSAMAX) 70 mg/75 mL solution Take 75 mL by mouth one time a week. levothyroxine (SYNTHROID) 25 mcg tablet Take 1 tablet by mouth once daily. rosuvastatin (CRESTOR) 10 mg tablet Take 1 tablet by mouth daily at bedtime. Vitamin C with R-Lipoic Acid ([employer]) Use 8 pumps daily (1000mg of Vitamin C and 50 mg of R-Lipoate). PhytoMulti (j-Grab) Take 2 tablets daily with food Biocidin Advanced Formula ([employer]) Take 5 Drops by mouth three times daily. B-Complex Plus (Pure Encapsulations) - 1qD stress/energy/hormones/detox/weight loss Take 1 capsule by mouth once daily. Ascorbic Acid (VITAMIN C) powd Take 1 Each by mouth once daily. acetaminophen (TYLENOL) 325 mg tablet Take 2 tablets by mouth every 4 hours as needed for pain (acute post operative pain). No current facility-administe (more content not included)...[facility] 12-10-2022 Miscellaneous Notes* Telephone Encounter - Yolie Siu MA - 12/10/2022 12:59 PM EDT Patient notified of results, verbalized understanding of instructions given as listed below. Yolie Siu MA * Telephone Encounter - Zoey Ma APRN.CNP - 12/10/2022 12:52 PM EDT Patient is on the correct medication according to the urine culture. If symptoms are improving patient should continue medication until gone. If symptoms are getting worse not better patient needs tofollow-up with primary care. documented in this encounterM[facility]09-01-2023 Instructions* Patient Instructions* Chico Mattson APRN.CNP - 12/08/2022 3:51 PM EDT URINARY TRACT INFECTION GENERAL INFORMATION: A urinary tract infection (UTI) is an infection of the bladder or kidneys. A bladder infection, called cystitis, is the more common type. If the infection travels up to the kidneys, it is called pyelonephritis. This can be more serious. UTIs are a common problem in women. Having sexual relations can leave a woman more susceptible to developing a UTI, but it is not sexually transmitted like gonorrhea. Some women have a problem with recurrent UTIs. INSTRUCTIONS: 1. Your doctor prescribed an antibiotic to treat the UTI. Take exactly as directed. Be sure to takeall the medication prescribed, even if your symptoms disappear. If you stop treatment early, the infection may not be fully treated and the symptoms could come back again. 2. Get plenty of rest. You may take acetaminophen for fever and aches. 3. Drink 6 to 8 glasses of fluids, especially water, every day. This helps wash out germs from yoururinary tract. Cranberry juice or other sources of vitamin C are also good for you. 4. Urinate often, as soon as you feel the urge. Empty your bladder completely. Urinate before and after you have sex. 5. Always wipe from front to back after going to the bathroom. This pushes germs away from your bladder, rather than towards it. 6. Showers are better than baths, and you should wash the genital area daily. Avoid bubble bath or bath oils if you do take a bath. 7. Wear underwear and pantyhose with a cotton crotch. CONTACT YOUR DOCTOR: 1. You have a temperature over 102F (38.8C) after 48 hours on medication. 2. You notice blood in your urine. 3. Your symptoms don't improve in 2 days. 4. You develop nausea, vomiting, diarrhea, or a rash. 5. You develop new or unexplained symptoms. These may be related to the medication you are taking. 6. Your symptoms return after you finish treatment. RETURN TO THE EMERGENCY DEPARTMENT IF: You develop vomiting and can't keep your medication or fluids down. documented in this [facility] History of Present illness Narrative* Chico Mattson APRN.MARCELA - 12/08/2022 3:43 PM EDT Subjective HPI Nontoxic-appearing female presents urgent care chief complaint possible UTI. Duration of symptoms 2weeks. Associated symptoms urinary frequency and urgency. States history of UTIs this feels similar. Last UTI was August of this year. Positive for Klebsiella. Has used OTC medications does help. Presents today for evaluation. No known sick contacts. Overall feels well. Denies any fever body aches chills productive cough chest pain shortness of breath pleuritic pain hemoptysis nausea vomiting abdominal pain change in bowel or bladder habits. Past medical history prescription medication use and allergies reviewed. .Patient presents with: Urinary Frequency: X2 weeks PAST MEDICAL HISTORY Diagnosis Date Age related osteoporosis DEMETRA (acute kidney injury) (HCC) 08/18/2019 Arthritis of both knees 03/08/2015 Diarrhea Diverticulosis of colon (without mention of hemorrhage) Essential tremor 03/08/2016 Hypercalcemia 03/13/2018 Hyperparathyroidism, unspecified ([facility]) Hypothyroidism, acquired 05/22/2020 Irritable bowel syndrome Osteopenia Pill dysphagia Sciatica Secondary hyperparathyroidism (HCC) 08/02/2010 Vitamin B 12 deficiency 08/18/2019 Vitamin D deficiency 01/19/2014 PAST SURGICAL HISTORY Procedure Laterality Date ADENOIDECTOMY PRIMARY <AGE 12 Adenoidectomy COLONOSCOPY FLX DX W/COLLJ SPEC WHEN PFRMD 08/19/1999 Colonoscopy COLONOSCOPY FLX DX W/COLLJ SPEC WHEN PFRMD 07/14/2009 Repeat in -2019 COLONOSCOPY FLX DX W/COLLJ SPEC WHEN PFRMD 09/30/2019 Colonoscopy NECK SURGERY HX 07/12/2021 C4-T2 Fusion and C5-7 Laminectomy PAST SURGICAL HISTORY OF Bilateral partial knee replacemenet TONSILLECTOMY PRIMARY/SECONDARY <AGE 12 Tonsillectomy ALLERGIES Amoxicillin, Fall Allergy [Other], Oxycodone, Penicillins, and Seasonal Allergies MEDICATIONS Alendronate Sodium (FOSAMAX) 70 mg/75 mL solution Take 75 mL by mouth one time a week. levothyroxine (SYNTHROID) 25 mcg tablet Take 1 tablet by mouth once daily. rosuvastatin (CRESTOR) 10 mg tablet Take 1 tablet by mouth daily at bedtime. Vitamin C with R-Lipoic Acid (MuscleGenes) Use 8 pumps daily (1000mg of Vitamin C and 50mg of R-Lipoate). PhytoMulti (j-Grab) Take 2 tablets daily with food Biocidin Advanced Formula (Yuyuto) Take 5 Drops by mouth three times daily. B-Complex Plus (Pure Encapsulations) - 1qD stress/energy/hormones/detox/weight loss Take 1 capsule by mouth once daily. Ascorbic Acid (VITAMIN C) powd Take 1 Each by mouth once daily. acetaminophen (TYLENOL) 325 mg tablet Take 2 tablets by mouth every 4 hours as needed for pain (acute post operative pain). FAMILY HISTORY Problem Relation Age of Onset Arthritis Mother other (Dementia) Mother Heart Father [place], bi-pass surgery X-2/diabetes Headache Sister Thyroid Sister Calcium Disorder No Family History Social History Tobacco Use Smoking status: Never Smokeless tobacco: Never Substance Use Topics Alcohol use: Yes Comment: Occasionally wine Drug use: No BP 135/76 Pulse 84 Temp 37.3 C (99.2 F) Resp 18 Wt 57.7 kg (127 lb 3.2 oz) SpO2 100% BMI 22.53 kg/m Review of Systems Constitutional: Negative for chills, fever and malaise/fatigue. HENT: Negative for congestion, ear discharge, ear pain, sinus pain and sore throat. Eyes: Negative for blurred vision, pain, discharge and redness. Respiratory: Negative for cough, hemoptysis, sputum production, shortness of breath, wheezing and stridor. Cardiovascular: Negative for chest pain. Gastrointestinal: Negative for abdominal pain, diarrhea, nausea and vomiting. Genitourinary: Positive for frequency and urgency. Negative for dysuria, flank pain and hematuria. Musculoskeletal: Negative for myalgias. Skin: Negative for itching and rash. Neurological: Negative for dizziness and headaches. Objective Physical Exam Vitals and nursing note reviewed. Constitutional: General: She is not in acute distress. Appearance: She is not toxic-appearing or diaphoretic. HENT: Head: Normocephalic. Jaw: No trismus. Right Ear: Hearing normal. No decreased hearing noted. No drainage, swelling or tenderness. Tympanic membrane is not perforated, erythematous or bulging. Left Ear: Hearing normal. No decreased hearing noted. No drainage, swelling or tenderness. Tympanicmembrane is not perforated, erythematous or bulging. Nose: Nose normal. Mouth/Throat: Pharynx: Uvula midline. No uvula swelling. Tonsils: No tonsillar abscesses. Eyes: Pupils: Pupils are equal, round, and reactive to light. Cardiovascular: Rate and Rhythm: Normal rate and regular rhythm. Pulses: Normal pulses. Pulmonary: Effort: Pulmonary effort is normal. No respiratory distress. Breath sounds: Normal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 sprayed with ROUND UP Vinyl luis e, picked up carpets Well water tested and high for lead, researching next steps House Built in 1950s GPL-TOX profile JAN 2021 1, 4, 11, , 172 at or above 75 percentile Component Latest Ref Rng & Units 01/28/2021 Mercury Blood <=10.0 ug/L 2.7 Lead 0.0 - 4.9 ug/dL <1.0 GGT 6 - 46 U/L 18 Hormonal Function: Osteopenia Hypercalcemia-Endocrine wants of off calcium and Vit D supplement-followed by Endocrine Thyroid labs now normal with Levothyroxine Structural Function: Knee surgery X 2 , Dec and Jan 2019 with ABX, Anesthesia Hearing aids 6-7 head injuries, 2014, 2016, 2017, 2018, 2020 X2 Plan and Lifestyle Prescription Plan/Instructions/Resources: Testing Recommendations: None Other Recommendations: Nutrients Eat protein at every meal. Consider one serving of collagen powder daily. Anti-jaret diet-NO sugar, refined flours, alcohol Filter drinking water -change filter every 3 months Continue: [place]-3 one tsp Magnesium complex one TBSP daily BodyBio PC tsp daily Zinc Hydroxo B12 one lozenge Buffered vit C powder tsp daily-CHANGE vitamin C/lipoic acid pump Cranberry concentrate Seeking Health Glutathione if fine aim for 250-400 mg twice daily and B-minus - changing to B-complex plus ADD Phytomulti with food 2. Gut Balance-bacteria and fungal dysbiosis Orthobiotic probiotic 2 servings daily Start Herbal Therapy: Biocidin in water for 12 weeks Follow up: Please schedule a follow up visit with the following Caregivers: Provider 8-12 weeks or next available appointment Medication orders placed this encounter Biocidin Advanced Formula (Yuyuto) Sig: Take 5 Drops by mouth three times daily. PhytoMulti (j-Grab) Sig: Take 2 tablets daily with food Vitamin C with R-Lipoic Acid (MuscleGenes) Sig: Use 8 pumps daily (1000mg of Vitamin C and 50 mg of R-Lipoate). [facility] Cynny at [email or web address] Code: functional LIFESTYLE PRESCRIPTION Functional Nutrition: Anti jaret diet Sleep: Sleep goal for most adults is a minimum of 7-9 hours nightly. Exercise Prescription: Numerous studies confirm the benefits of regular moderate aerobic exercise (walking, swimming, elliptical machine, cycling, etc.) for 30 min 5 days per week (150 min goal). Stress Management: 1) Please look into this Heart Rate Variability BioFeedback Tool (www.heartmath.org). 2) A regular, daily meditation practice of at least 15-20 minutes will change your brain--as well as your genes! Behavioral Health Therapist: If I recommended counseling or individual therapy, please schedule an individual appointment with our Functional Medicine Behavioral Health Therapist after your visit today. The Behavioral Health Therapist helps patients identify and understand feelings and behaviors, experience the process of making positive change, and gain healthy coping skills. Health Coaching: Please consider scheduling with our [place] for Functional Medicine health coaches for a phone or virtual visit for accountability, goal setting and help with behavior change control specialist the next 6-8 weeks to be successful with your goals. [phone]. Smart phone apps to begin a meditative practice: Headspace (free for first 10 days) Insight Meditation Timer- (Free)-Great all-around celsa to use for guided meditations of many different types and lengths or just to use as a tool to time and track your meditation practice. This is myabsolute favorite! Calm- (Free) Walking Meditations-($1.99)- Get your walk AND meditation done together. A good way to start out for individuals who feel they just can't sit still to begin a meditative practice. Medications/Supplements Recommended: Medication orders placed this encounter Biocidin Advanced Formula (Yuyuto) Sig: Take 5 Drops by mouth three times daily. PhytoMulti (Metagenics) Sig: Take 2 tablets daily with food Vitamin C with R-Lipoic Acid (MuscleGenes) Sig: Use 8 pumps daily (1000mg of Vitamin C and 50 mg of R-Lipoate). I recommend the supplements from the [facility] Store Online Store at [email or web address] as we have thoroughly evaluated the research and use only highest quality supplements. If you are a new patient, enter the following provider code: functional During the next 6-8 weeks you'll be working on your diet plan discussed with our elementary science teacher, allowing for gentle detoxification and decreasing inflammation - while we are gathering your lab resultsand combining those with your complete history to formulate a very personalized treatment plan. LAB results: Due to the complexity of the testing performed, we are not able to review labs via Source[employer] or over the phone, but please know, if any of your labs are critical we will contact you. Otherwise, we will review all your labs at your next visit. Make sure to schedule with the elementary science teacher (this will not happen automatically) as you did with your first visit so that she can review nutritional aspects of your treatment plan. By your 3rd visit, as things are improving, we will likely transition you to one of our very capable Certified Nurse Practitioners/Physician Assistants for further follow-up. Potential future labs: Any [employer] labs ordered take about 4 weeks to return. Do them as soon as possible so that we have the results before your next appointment. You can access them on the [employer] website and it can be beneficial if you review them prior to your next visit. www.LIBCASTx.net. Read about NutrEval/GI Effects if this was ordered. Time spend with patient: I spent 30 minutes minutes of time virtually with the patient. At least 50% of this time was spent in counseling, explanation of diagnosis, planning of further management, and coordination of care. Rosangela Vaughn MD documented in this encounter[facility]09-[facility] History of Present illness Narrative* Ashley Roberson MD - 12/23/2021 8:55 AM EDT Reason for Visit Patient presents with: Same Day Appointment: reoccurring fevers 12/13, 12/20 treated with tylenol Fiona Gruber is a 81 year old female who presents here today for Above Complaints.. Health Maintenance ADVANCE DIRECTIVE DISCUSSION INFLUENZA(1) HPI Patient had fevers on Sunday evening, with urinary urgency, and fever over 100, she gets disoriented with the fever, she was very confused. After taking tylenol she felt better. Tested 2 times for covid and it was negative. No fever after Sunday. Her son who hugged her on last , found out he had a fever on Sunday so they think some exposure was present. Today no issues with balance, she feels completely normal CARDIOVASCULAR: No chest pain, dyspnea, palpitations, orthopnea, PND, ankle edema. PULM: No dyspnea, unexplained cough. GI: No dysphagia/odynophagia, problematic reflux, constipation, diarrhea, changes in stool habits, hematochezia, melena. : No new urinary complaints, including dysuria, gross hematuria or pyuria. NEURO: when she has fever she looses balance no peripheral weakness/paresthesias or numbness of concern. No problem-specific Assessment & Plan notes found for this encounter. PAST MEDICAL HISTORY Diagnosis Date Age related osteoporosis DEMETRA (acute kidney injury) (HCC) 08/18/2019 Arthritis of both knees 03/08/2015 Diarrhea Diverticulosis of colon (without mention of hemorrhage) Essential tremor 03/08/2016 Hypercalcemia 03/13/2018 Hyperparathyroidism, unspecified (HCC) Hypothyroidism, acquired 05/22/2020 Irritable bowel syndrome Osteopenia Pill dysphagia Sciatica Secondary hyperparathyroidism (HCC) 08/02/2010 Vitamin B 12 deficiency 08/18/2019 Vitamin D deficiency 01/19/2014 PAST SURGICAL HISTORY Procedure Laterality Date ADENOIDECTOMY PRIMARY <AGE 12 Adenoidectomy COLONOSCOPY FLX DX W/COLLJ SPEC WHEN PFRMD 08/19/1999 Colonoscopy COLONOSCOPY FLX DX W/COLLJ SPEC WHEN PFRMD 07/14/2009 Repeat in COLONOSCOPY FLX DX W/COLLJ SPEC WHEN PFRMD 09/30/2019 Colonoscopy NECK SURGERY HX 07/12/2021 C4-T2 Fusion and C5-7 Laminectomy PAST SURGICAL HISTORY OF Bilateral partial knee replacemenet TONSILLECTOMY PRIMARY/SECONDARY <AGE 12 Tonsillectomy FAMILY HISTORY Problem Relation Age of Onset Arthritis Mother other (Dementia) Mother Heart Father [place], bi-pass surgery X-2/diabetes Headache Sister Thyroid Sister Calcium Disorder No Family History Social History Tobacco Use Smoking status: Never Smokeless tobacco: Never Substance Use Topics Alcohol use: Yes Comment: Occasionally wine Drug use: No Past medical history, appointments, medications, allergies reviewed. Pertinent Lab/Diagnostic Studies are reviewed and discussed today Current Outpatient Medications: B-Complex Plus (Pure Encapsulations) - 1qD stress/energy/hormones/detox/weight loss levothyroxine (SYNTHROID) 25 mcg tablet Ascorbic Acid (VITAMIN C) powd Alendronate Sodium (FOSAMAX) 70 mg/75 mL solution acetaminophen (TYLENOL) 325 mg tablet Physical Exam BP 118/60 (BP Site: Right Arm, BP Position: Sitting, BP Cuff Size: Regular Adult) Pulse 64 Temp36.7 C (98 F) Resp 12 Ht 160 cm (5' 3) Wt 52.2 kg (115 lb) SpO2 99% BMI 20.37 kg/m General appearance: Well appearing, alert, in no acute distress, well nourished. Skin: Skin color, texture, turgor normal, no suspicious rashes or lesions Head: Normocephalic, no masses, lesions, tenderness or abnormalities Eyes: Anicteric sclera. Pupils are equally round and reactive to light. Extraocular movements are intact. Lungs: Lungs clear to auscultation. No wheezing, rhonchi, rales Heart: RRR without murmur, gallop, or rubs. Extremities: No deformities, edema, skin discoloration, clubbing or cyanosis. Good capillary refill. ASSESSMENT/PLAN: 1. Urinary tract infection without hematuria, site unspecified - ICD9: 599.0, ICD10: N39.0 (primarydiagnosis) Urinary dip is showing positive leucks and blood but trace Trial of abx. Went over the side effect profile for the drug with the patient, mentioned every one of it , discussed appropriate concerns , alternatives and benefits of the drug, Patient involved in shared decision making for management of her medical issues. History and medications reviewed. Epic updated as needed Refills taken care of and meds adjusted as indicated after reviewed history, exam and labs. Health Maintenance reviewed. Updated record and/or ordered tests as recorded. - UA DIP, URINE (POC) Probiotics with antibiotics Drink a lot of water 2. Cerebral amyloid angiopathy (CODE) - ICD9: 277.39, 437.9, ICD10: I68.0 3. Dementia without behavioral disturbance, unspecified dementia type - ICD9: 294.20, ICD10: F03.90 Stable. Ashley Roberson MD documented in this encounterM[facility]08-30-[facility]22 History of Present illness Narrative* Brielle Clark RN - 12/06/2021 1:30 PM EDT [facility] Enrollment Provider Action/FYI: Pt spouse, validated is involved in patient's care, declines enrollment, pt family uses [facility] frequently and is in close communication with Functional medicine and PCP Pt was offered enrollment last month and declined then also Patient referred by: [facility] [place] Contact made with patient: Yes - Patient identified by name and . Discussed care with spouse Ap this is Brielle Clark RN and I am calling from Ashley Roberson MD office at the [facility]. I am a RN Skidder Lever Operator with our [facility] Chronic Disease Management program. Ashley Roberson MD wanted me to reach out to help you manage your health at home. Our goal is to keep you well at home.We want to help you manage your chronic disease by providing a safety net of resources around you, getting you the care you need in a timely manner, and hopefully keep you out of the ED and hospital.I will send you a few questions once a week through your [employer] account. It will automatically show up for you to complete. There are simple questions that will help us identify if you have any concerns or symptoms and I will call you to help get what you need. We will be able to connect you, review your symptoms, do an on demand visit, or communicate with Ashley Roberson MD if needed. I am going to sign you up for the program now. Enrollment Questions: Let's get you enrolled in the program. No, reason: I am not interested in home monitoring at all Closing: PATIENT DECLINES - Thank you for your time today. I understand you are not interested participatingin our program at this time. I will be sure to let your primary care doctor know we discussed your option to enroll in the program and that, for now, you have chosen to opt-out. If you decide at any time that you would like to be involved in the program, please let your primary care doctor know, and he/she can refer you back to our program. documented in this encounterMckitrick Hospital08-19-2022 Miscellaneous Notes* Telephone Encounter - Angelique Trevino LPN - 11/25/2021 9:52 AM EDT Last seen MANAGEMENT CONSULTING 11/11/21. Next appt with MANAGEMENT CONSULTING 02/10/22. In review this is a mail away pharmacy. * Telephone Encounter - Izabella Nunez - 11/25/2021 8:56 AM EDT Patient has been identified by name and date of : Yes Requested Prescriptions Pending Prescriptions Disp Refills Alendronate Sodium (FOSAMAX) 70 mg/75 mL solution 300 mL 11 Sig: Take 75 mL by mouth one time a week. RX INSTRUCTIONS: Patient aware RX will be sent to pharmacy. No need to notify patient. Izabella Nunez documented in this encounterM[facility]itrick Hospital08-11-2022 History of Present illness Narrative* Rosangela Vaughn MD - 11/17/2021 3:30 PM EDT Virtual Follow-up Visit This Team Access Model visit is a virtual encounter. It required patient- provider interaction for the medical decision making as documented below. There is no height or weight on file to calculate BMI. RMR can't be calculated - Weight unrecorded in last 120 days. ALLERGIES Allergen Reactions Amoxicillin Hives GI upset Fall Allergy [Other] Oxycodone GI Upset Penicillins Hives Seasonal Allergies Itching Fall PAST MEDICAL HISTORY Diagnosis Date Age related osteoporosis DEMETRA (acute kidney injury) ([facility]) 08/18/2019 Arthritis of both knees 03/08/2015 Diarrhea Diverticulosis of colon (without mention of hemorrhage) Essential tremor 03/08/2016 Hypercalcemia 03/13/2018 Hyperparathyroidism, unspecified ([facility]) Hypothyroidism, acquired 05/22/2020 Irritable bowel syndrome Osteopenia Pill dysphagia Sciatica Secondary hyperparathyroidism ([facility]) 08/02/2010 Vitamin B 12 deficiency 08/18/2019 Vitamin D deficiency 01/19/2014 PAST SURGICAL HISTORY Procedure Laterality Date ADENOIDECTOMY PRIMARY <AGE 12 Adenoidectomy COLONOSCOPY FLX DX W/COLLJ SPEC WHEN PFRMD 08/19/1999 Colonoscopy COLONOSCOPY FLX DX W/COLLJ SPEC WHEN PFRMD 07/14/2009 Repeat in COLONOSCOPY FLX DX W/COLLJ SPEC WHEN PFRMD 09/30/2019 Colonoscopy NECK SURGERY HX 07/12/2021 C4-T2 Fusion and C5-7 Laminectomy PAST SURGICAL HISTORY OF Bilateral partial knee replacemenet TONSILLECTOMY PRIMARY/SECONDARY <AGE 12 Tonsillectomy Social History Tobacco Use Smoking status: Never Smokeless tobacco: Never Substance Use Topics Alcohol use: Yes Comment: Occasionally wine Drug use: No Functional Medicine Timeline Patient Entered Questionnaire PROMIS Scale T-Scores -- HIGHER SCORES BETTER PROMIS Global Health - (T-Scores - the mean of general population = 50. Five points is a clinicallymeaningful difference.) 06/03/2021 07/01/2021 11/17/2021 Physical T-Score 47.7 26.7 47.7 Mental T-Score 41.1 31.3 43.5 Depression Screening: PHQ-9 11/30/2019 05/12/2020 05/17/2021 Score 1 1 0 PHQ-9 Self Harm 11/30/2019 05/12/2020 05/17/2021 Question 9 Not at all Not at all Not at all PHQ-9 Self-Harm (Item 9) response options: 0 Not at all 1 Several days 2 More than half the days 3 Nearly every day PHQ-9 Levels: 0-4 Minimal depression 5-9 Mild depression 10-14 Moderate depression 15-19 Moderately severe depression 20-27 Severe depression Subjective: 11/17/21 Dr. Vaughn virtual visit Her daughter and are present for visit/zoom Reports good and bad days Her reports she gets disoriented at times and has trouble remembering with her pill She had surgery on her neck s/p fall and her daughter reports her memory has been worse since procedure Reviewed one day diet with her and family Supplements-vit C, methyl B12 lozenge 1/d (decreased to 04/10) , B-minus complex, BodyBio PC, vit C, NAC instead of Trifotify due to cost, zinc, ASA, magnesium liquid, probiotic, ProOmega liquid, cranberry Her daughter 06/06/21 Dr. Roderick dowling Her daughter is present on Zoom with us today She saw Dr. Enrike Malik at [facility] for a consultation. She has a Brain map and MOCA was 19. Referred for Brain MRI Brain MRI showed CAA-cerebral amyloid angiopathy and referred to cerebrovascular center (this ) and center for brain health Dr. Malik recommended stopping some supplements- L-glutamine, digestive enzymes, GI Detox, Mediclay, calcium. He started BodyBio PC and seeking health olinic acid/[id number] SL tabs. She has more energy with B12 supplement She is doing the treadmill, bands, weights 03/22/21 Dr. Roderick dowling Her daughter is present for the visit Some days has fatigue No change in memory or could be slightly worse Plans to schedule consult with Dr. Enrike Malik for cognitive decline Started Seeking Health B-Minus supplement Seen at ER for fever and confusion last week, evaluation negative and given acetaminophen without recurrence Review of Systems: The remainder of the review of systems is noncontributory Addendum-Consult from Dr. Enrike Adames: I met with the very nice 80+ yo F that you referred to me with dementia and hypercalcemia and toxicities. She has a touch of Lewey Body/Parkinsonism in addition to her classic amnestic type Alzheimer's symptoms. In brief, I have seen some folks with dementia get worse with detoxification. I shared this with her, but also told her I have seen people improve and that I would have done everything you did had I not had the advantage of look back. She is going to see you back I think later this month or maybe in May. I tweaked some of the supplements as follows: -Stopped Mediclay, extra Calcium Citrate, L-glutamine/GI Detox/Medi-hasmukh in case this is agitating. -Added Folinic acid and [id number] (nothing fancy) -PhosCholine Body Bio PC liquid since she has pill dysphagia. I started her on 3 but could go up to6 if you think when you see her IMO. -She is going to get a sleep study and see a sleep doc back in [place], [place] soon. -She will follow up with her neurologist. 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 -I may start her on a presciption medication like namenda depending on how she is doing. -her teeth may be contributing to this...see what you think if you see her in person. -there is more to do in the future but need to see how she does with this first round of recommendations. thank you for sending this very nice lady and I hope you are well, Rosangela. Enrike thomas DO, MBA Chief Scientific Wellness Officer [employer] [address] [place] [address] [address] [place] [address] [employer] - [phone] [place] [phone] (mobile) Objective: Virtual Physical Exam: Virtual Assessment Assessment: R41.3 Memory deficits (primary encounter diagnosis) E61.7 Deficiency of multiple nutrient elements E53.8 B12 deficiency E63.0 Essential fatty acid (EFA) deficiency CURRENT Functional Medicine Assessment/ PLAN Nutritional Assessment Vit B12 def Nocturnal leg cramps Vegan for 8 years, eating small amounts of poultry and pork since 2019 Supplements-magnesium, fiber well gummies NE 2019-reviewed this visit Elevated RBC tin and mercury High lipid peroxides Very depleted of b vitamins High need for Mn, lipoic acid, other minerals and antioxidants Bacterial and fungal dysbiosis Toxin markers + Compounded Heterozyous MTHFR variant Digestive Function Tubular adenoma of colon MAY 2019 probable food poisoning VIOME stool profile-significant imbalance-see scanned documents Alternating diarrhea and constipation, GONE Luba GI Effects stool Profile 2019 Maldigestion 3 Inflammation 0 Dysbiosis 10 Metabolic Imbalance 10 Infection 1 Low diversity Total SCFAs low Mild elevation beta glucuronidase Pancreatic elastase decreased 228 Commensal bacteria by PCR 09/29 high Low Lactobacillus Bacterial and dysbiosis by culture -Klebsiella oxytoca No parasites Inflammation/Immune Function Elevated AST, ?RUQ sonogram performed to assess liver, last liver panel normal, now normal CKD stage III, ? Renal Consult previously, creatinine more recently normal range HTN Hyperlipidemia Hx sinus infections Achy after exercise Episode of SOB, WEBB in FEB-seen in ER, persistent for 2 weeks Energy Production/Function: Fatigue MCI/Dementia-s/p Neurology Consult work up in progress, referred for Neuropsychiatric evaluation MOCA 26, now 16 Detoxification Function Hx flooding in basement, self treated Roof leak, roof replaced Other leaks and mold exposures Exposure most likely prior home Testing of current home -swabs, plates not significant Compounded MTHFR variant COMT intermediate [facility] Mycotoxins Jul 2020 Ochratoxins 18.42 Stachy Verrucarin 11.37 Fusarium Enniatin B .64 Zearalenone 12.38 Citrinin 163.91 Many mercury amalgams Dom harvey Lives on [address] and lives by farmland with pesticide spraying, well water Eating perch and walleye, tuna once a week Oil well on property and they get their gas from the well, they have [address] Use bomb fumigants in the house twice a year Eating non-organic almonds and almond butter Ditch close th them is sprayed with ROUND UP Vinyl luis e, picked up carpets Well water tested and high for lead, researching next steps House Built in GPL-TOX profile JAN 2021 1, 4, 11, , 172 at or above 75 percentile Component Latest Ref Rng & Units 01/28/2021 Mercury Blood <=10.0 ug/L 2.7 Lead 0.0 - 4.9 ug/dL <1.0 GGT 6 - 46 U/L 18 Hormonal Function: Osteopenia Hypercalcemia-Endocrine wants of off calcium and Vit D supplement-followed by Endocrine Thyroid labs now normal with Levothyroxine Structural Function: Knee surgery X 2 , Dec and Jan 2019 with ABX, Anesthesia Hearing aids 6-7 head injuries, 2013, 2016, 2017, 2018, 2020 X2 Plan and Lifestyle Prescription Plan/Instructions/Resources: Testing Recommendations: Repeat Nutreval Profile -stop supplements for 4 days before testing Other Recommendations: Finish up the B-minus the stop it and change to B-complex Plus one daily with food Seeking Health optimal liposomal glutathione 1 tsp daily Follow up: Please schedule a follow up visit with the following Caregivers: Provider 12-16 weeks or next available appointment LIFESTYLE PRESCRIPTION Functional Nutrition: Per CFM RD Sleep: Sleep goal for most adults is a minimum of 7-9 hours nightly. Exercise Prescription: Numerous studies confirm the benefits of regular moderate aerobic exercise (walking, swimming, elliptical machine, cycling, etc.) for 30 min 5 days per week (150 min goal). Stress Management: 1) Please look into this Heart Rate Variability BioFeedback Tool (www.heartPinkelStarth.org). 2) A regular, daily meditation practice of at least 15-20 minutes will change your brain--as well as your genes! Behavioral Health Therapist: If I recommended counseling or individual therapy, please schedule an individual appointment with our Functional Medicine Behavioral Health Therapist after your visit today. The Behavioral Health Therapist helps patients identify and understand feelings and behaviors, experience the process of making positive change, and gain healthy coping skills. Health Coaching: Please consider scheduling with our [place] [facility] Functional Medicine health coaches for a phone or virtual visit for accountability, goal setting and help with behavior change control specialist the next 6-8 weeks to be successful with your goals. [phone]. Smart phone apps to begin a meditative practice: Headspace (free for first 10 days) Insight Meditation Timer- (Free)-Great all-around celsa to use for guided meditations of many different types and lengths or just to use as a tool to time and track your meditation practice. This is myabsolute favorite! Calm- (Free) Walking Meditations-($1.99)- Get your walk AND meditation done together. A good way to start out for individuals who feel they just can't sit still to begin a meditative practice. Medications/Supplements Recommended: Medication orders placed this encounter B-Complex Plus (Pure Encapsulations) - 1qD stress/energy/hormones/detox/weight loss Sig: Take 1 capsule by mouth once daily. Refill: 0 I recommend the supplements from the [facility] Store Online Store at [email or web address]://store.adQ.QuizFortune/ as we have thoroughly evaluated the research and use only highest quality supplements. If you are a new patient, enter the following provider code: functional During the next 6-8 weeks you'll be working on your diet plan discussed with our elementary science teacher, allowing for gentle detoxification and decreasing inflammation - while we are gathering your lab resultsand combining those with your complete history to formulate a very personalized treatment plan. LAB results: Due to the complexity of the testing performed, we are not able to review labs via [email or web address] or over the phone, but please know, if any of your labs are critical we will contact you. Otherwise, we will review all your labs at your next visit. Make sure to schedule with the elementary science teacher (this will not happen automatically) as you did with your first visit so that she can review nutritional aspects of your treatment plan. By your 3rd visit, as things are improving, we will likely transition you to one of our very capable Certified Nurse Practitioners/Physician Assistants for further follow-up. Potential future labs: Any [employer] labs ordered take about 4 weeks to return. Do them as soon as possible so that we have the results before your next appointment. You can access them on the [employer] website and it can be beneficial if you review them prior to your next visit. www.[employer].net. Read about NutrEval/GI Effects if this was ordered. Time spend with patient: I spent 30 minutes minutes of time virtually with the patient. At least 50% of this time was spent in counseling, explanation of diagnosis, planning of further management, and coordination of care. Rosangela Vaughn MD documented in this [facility] History of Present illness Narrative* Yvonne Valente APRN.ICT ACCOUNT MANAGER - 11/11/2021 10:06 AM EDT CC: Patient presents with: Recheck: 4 month follow up HPI Fiona Gruber is a 81 year old female who presents today for 4 month follow up. Since last visit, patient had fallen at home fracturing her neck and requiring surgery. Last saw neurosurgery in September with only needing to follow up as needed. Since injury, patient reports left hand numbness that has never subsided, but denies any other numbness tingling weakness or pain. At September visit patient had developed a large lump to the right of incision that there were concerns for possible hardware shifting, but xray was reviewed by neurosurgery and had no change from previous. Still has firm lump without it getting larger/smaller, red, tender, or any other changes. Dementia: Has trouble remembering to take medications. Was diagnosed with dementia years ago. Patient and spouse says it has worsened over the years, but not too terrible. Nothing seems to have increased since injury or surgery. Has been seeing Dr. Vaughn in [place] for memory issues and tried numerous supplements for memory. They were wanting to discuss this today and do not remember her having a memory test completed. Mother has history of dementia and in her mid 90s. Hypothyroidism: Denies fatigue, intolerance to heat/cold, abnormal weight changes, or edema. states prior to diagnosis she had high blood pressure, but since being treated has had normal blood pressure readings since. REVIEW OF SYSTEMS General: no fevers, no chills, no night sweats, no recurrent infections, no change in appetite, no change in energy and no significant changes in weight Respiratory: no cough, no wheezing, no shortness of breath, no hemoptysis Cardiovascular: no chest pain, no chest pressure, no palpitations and no swelling GI: No nausea, vomiting, or diarrhea Endocrine: no fatigue, no cold intolerance, no heat intolerance, no polyuria, no polyphagia and no polydipsia Neurologic: No headache, weakness, numbness, tingling, dizziness, syncope. PAST MEDICAL HISTORY Diagnosis Date Age related osteoporosis DEMETRA (acute kidney injury) ([facility]) 08/18/2019 Arthritis of both knees 03/08/2015 Diarrhea Diverticulosis of colon (without mention of hemorrhage) Essential tremor 03/08/2016 Hypercalcemia 03/13/2018 Hyperparathyroidism, unspecified ([facility]) Hypothyroidism, acquired 05/22/2020 Irritable bowel syndrome Osteopenia Pill dysphagia Sciatica Secondary hyperparathyroidism ([facility]) 08/02/2010 Vitamin B 12 deficiency 08/18/2019 Vitamin D deficiency 01/19/2014 PAST SURGICAL HISTORY Procedure Laterality Date ADENOIDECTOMY PRIMARY <AGE 12 Adenoidectomy COLONOSCOPY FLX DX W/COLLJ SPEC WHEN PFRMD 08/19/1999 Colonoscopy COLONOSCOPY FLX DX W/COLLJ SPEC WHEN PFRMD 07/14/2009 Repeat in COLONOSCOPY FLX DX W/COLLJ SPEC WHEN PFRMD 09/30/2019 Colonoscopy NECK SURGERY HX 07/12/2021 C4-T2 Fusion and C5-7 Laminectomy PAST SURGICAL HISTORY OF Bilateral partial knee replacemenet TONSILLECTOMY PRIMARY/SECONDARY <AGE 12 Tonsillectomy ALLERGIES Amoxicillin, Fall Allergy [Other], Oxycodone, Penicillins, and Seasonal Allergies MEDICATIONS levothyroxine (SYNTHROID) 25 mcg tablet Take 1 tablet by mouth once daily. Alendronate Sodium (FOSAMAX) 70 mg/75 mL solution Take 75 mL by mouth one time a week. acetaminophen (TYLENOL) 325 mg tablet Take 2 tablets by mouth every 4 hours as needed for pain (acute post operative pain). cyclobenzaprine (FLEXERIL) 5 mg tablet Take 1 tablet by mouth three times daily. melatonin 3 mg tablet Take 1 tablet by mouth daily at bedtime. ondansetron (ZOFRAN) 4 mg tablet Take 1 tablet by mouth every 6 hours as needed. heparin 5,000 unit/mL injection Inject 1 mL subcutaneously every 12 hours. magnesium hydroxide (MOM) 400 mg/5 mL suspension 30 mL by ORAL/FEEDING TUBE route once daily as needed. senna-docusate (SENNA-S) 8.6-50 mg per tablet 1 tablet by ORAL/FEEDING TUBE route twice daily. bisacodyl (DULCOLAX) 10 mg supp 1 Suppository by RECTAL route once daily as needed. TriFortify Waldo Gel ([employer]) Squeeze tube to fill 1 teaspoon, then swallow twicedaily as toleratedStart with 1/4 tsp FAMILY HISTORY Problem Relation Age of Onset Arthritis Mother other (Dementia) Mother Heart Father [place], bi-pass surgery X-2/diabetes Headache Sister Thyroid Sister Calcium Disorder No Family History Social History Tobacco Use Smoking status: Never Smoker Smokeless tobacco: Never Used Substance Use Topics Alcohol use: Yes Comment: Occasionally wine Drug use: No PHYSICAL EXAM BP 118/76 Pulse 64 Resp 16 Wt 52.6 kg (116 lb) BMI 20.55 kg/m General Appearance: well appearing, in no acute distress, alert Skin: Skin color, texture, turgor normal for age; Eyes: PERRLA, conjunctiva pink and moist, no icterus, sclera white, non-injected Neck: Thyroid normal size and symmetric without palpable nodules, No adenopathy, firm mass noted toright side of incision. Mass is not tender, red, immovable, and is firm without fluctuation Incision fully healed and approximated without redness, tenderness, or drainage. Lymph nodes: No cervical lymphadenopathy and No supraclavicular lymphadenopathy Lungs: Lungs clear to auscultation. No wheezing, rhonchi, rales. Heart: RRR without murmur, gallop, or rubs. No ectopy BUE Extremities: No deformities, edema, skin discoloration, clubbing or cyanosis. Good capillary refill. Strength to bilateral hands 5/5, patient with reports of decreased sensation to left hand MINI-MENTAL STATE EXAMINATION (MMSE) Make the patient comfortable and establish rapport. Ask questions in the order listed. Total possible score is 30. ORIENTATION 1. What is the (year) (season) (date) (day) (month)? Max score=5 Patient's score=3 2. Where are we? (state) (county) (town or city) (hospital) (floor)? Max score=5 Patient's score=5 REGISTRATION Ask the patient if you may test his/her memory. Then say the names of 3 unrelated objects, clearly and slowly, about one second for each (eg, apple, table, madan). After you have said all 3, ask him/her to repeat them. This first repetition determines the score(0-3), but keep saying them until he/she can repeat all 3, up to 6 trials. Max score=3 Patient's score=3 ATTENTION AND CALCULATION Ask the patient to begin with 100 and count backwards by 7. Stop after 5 subtractions (93, 86, 79, 72, 65). Score the total number of correct answers. If the patient cannot or will not perform the serial 7s task, ask him/her to spell the word WORLD backwards. The score is the number of letters in the correct order (eg, DLROW=5; DLRW=4; DLORW, DLW=3; OW=2; DRLWO=1). Max score=5 Patient's score=4 RECALL Ask the patient to recall the 3 items repeated above (eg, apple, table, madan). Max score=3 Patient's score=2 LANGUAGE Naming: Show the patient a wristwatch and ask him/her what it is. Repeat for pencil. Max score=2 Patient's score=2 Repetition: Ask the patient to repeat the phrase No ifs, ands, or buts: after you. Max score=1 Patient's score=1 3-Stage Command: Give the patient a piece of blank paper and ask him/her to take a piece of paper in your right hand, fold it in half, put it on the floor. Score 1 point for each part correctly executed. Max score=3 Patient's score=3 Reading: On a blank piece of paper, print the sentence CLOSE YOUR EYES in letters large enough for the patient to see clearly. Ask him/her to read it and do what it says. Score 1 point only if he/sheactually closes his/her eyes. Max score=1 Patient's score=1 Writing: Give the patient a blank piece of paper and ask him/her to write a sentence. Do not dictate a sentence; it is to be written spontaneously. It must contain a subject and verb and be sensible.Correct grammar and punctuation are not necessary. Max score=1 Patient's score=1 Copying: Ask the patient to copy the figure of intersecting pentagons exactly as it is. All 10 angles must be present and 2 must intersect to form a 4-sided figure to score 1 point. Tremor and rotation are ignored. Max score=1 Patient's score=1 MAXIMUM TOTAL SCORE = 30 TOTAL SCORE = 26/30 Suggested guideline for determining the severity of cognitive impairment: Mild: MMSE>21 Moderate: MMSE 10-20 Severe: MMSE<9 Expected decline in MMSE scores in untreated mild to moderate Alzheimer's patient is 2 to 4 points per year. *Adapted from Folstein et al.1 and Gaby and Regstein2. (c) 1974, 1997 [employer] Used withpermission. References: 1. Folstein MF, Folstein SE, Missy NC. Mini-Mental State: a practical method for grading the cognitive state of patients for the clinician. J Psychiatr Res. 1975; 12:189-198. 2. JR Gaby, Tessa NAVARRETE, Mini-Mental State Examination (MMSE). Psychopharm Bull. 1988;24:689-692. 3. Rankin JT, Amparo FJ, Traci RD, John A, Pema F. Neuropsychological function in Alzheimer's disease: pattern of impairment and rates of progression. Arch Neurol. 1988;45:263-268. 4. Laila RODRIGUEZ, Bisi B,Dmitriy SLiuP, Divya AGUIRRE. Predictors of cognitive and functional progression in patients with probable Alzheimer's disease. Neurology. 1992;42:4908-6250. Health maintenance reviewed with patient: ADVANCE DIRECTIVE DISCUSSION Never done INFLUENZA(1) due on 12/08/2021 DIABETES SCREEN due on 07/18/2024 DTAP,TDAP,TD(2 - Td or Tdap) due on 07/31/2027 BONE DENSITY Completed SHINGRIX VACCINE Completed COVID-19 VACCINE Completed PNEUMOCOCCAL: 65+ Completed DATA REVIEWED: Most recent labs ASSESSMENT/PLAN: 1. Hypothyroidism, acquired - ICD9: 244.9, ICD10: E03.9 (primary diagnosis) - Instructed patient on importance of taking on an empty stomach either first thing in the morning or at bedtime. - asymptomatic and TSH normal 2. H/O neck surgery - ICD9: V15.29, ICD10: Z98.890 - Healed well - unsure on firm mass - discussed with patient that for any changes to alert us for further diagnostics. 3. Numbness of left hand - ICD9: 782.0, ICD10: R20.0 - no change in this, caused by neck injury. 4. Memory deficits - ICD9: 780.93, ICD10: R41.3 - MMSE showing mild cognitive impairment. Discussed option of starting namenda or aricept to help slow progression of dementia. Patient to follow up with functional medicine and let us know if she decides to start taking one of the above medications - VITAMIN B12 BLOOD - CBC + DIFF - COMP METABOLIC PANEL 5. Essential hypertension - ICD9: 401.9, ICD10: I10 - was diagnosed with this previously but with 's account this seems more of a secondary hypertension related to hypothyroid which is resolved with thyroid supplementation - continue thyroid supplement as prescribed - CBC + DIFF - COMP METABOLIC PANEL 6. B-complex deficiency - ICD9: 266.9, ICD10: E53.9 - VITAMIN B12 BLOOD 7. Anemia, unspecified type - ICD9: 285.9, ICD10: D64.9 - not checked since surgery - CBC + DIFF Prescription instructions reviewed with patient as applicable. Potential red flag symptoms discussed with the patient. Reviewed appropriate action plan to take if red flag symptoms occur. Patient agreeable to treatment plan. Yvonne Valente APRN.CNP documented in this encounter[facility]07-[facility]22 History of Present illness Narrative* Rachell Rivera RN - 10/26/2021 2:08 PM EDT [facility] Enrollment Provider Action/FYI: CDM - CKD Declined CDM 10/26/21 Patient uses [facility], declines at this time. If needed, will consider later. Patient aware to contact PCP to be referred back to our program if needed at later date. Patient referred by: [facility] Baljeet Contact made with patient: Patient not outreached at this time. Closing: PATIENT DECLINES - Thank you for your time today. I understand you are not interested participatingin our program at this time. I will be sure to let your primary care doctor know we discussed your option to enroll in the program and that, for now, you have chosen to opt-out. If you decide at any time that you would like to be involved in the program, please let your primary care doctor know, and he/she can refer you back to our program. END OUTREACH documented in this encounterM[facility]07-19-[facility]22 History of Present illness Narrative* Rachell Rivera RN - 10/25/2021 7:00 PM EDT [facility] Enrollment Provider Action/FYI: CDM - CKD Enrollment MCM Sent Patient referred by: [facility] Baljeet Contact made with patient: No - Left Message: Hi my name is Rachell Rivera RN and I am calling from the [facility] on behalf of your PCP, Ashley Roberson MD. We are excited to share with you a new program to help you manage your health. Please call me back at # between the hours of 8am-5pm Sunday-Sunday. You will receive another phone call from me within the next two business days. I hope you can take the time to speak with me. (Keep encounter open and attempt 2nd outreach in two business days from today) END OUTREACH documented in this encounterM[facility]06-06-2022 NoteHNO ID: [id number] Author: Sahra Amador MD Service: ? Author Type: Physician Type: Progress Notes Filed: 09/12/2021 10:33 AM Note Text: NEUROSURGERY POST-OP NOTE Sahra Amador MD PhD Date of visit: September 12, 2021 Patient Name: Ms.Diane Valeri Gruber Date of : 1940 Current Age: [age] year old Sex: female MRN/E# [id number] Last Office Visit: 08/15/2021 SURGERY: Cervical 4-Thoracic 2 posterior instrumented fusion, Cervical 5-7 laminectomy decompression ? Pre-Surgical Symptoms:numbness to left thumb, gait imbalance with falls, weakness to arms bilaterally d/t fall? ? Patient is having their 9 week post operative visit. Patient feels that surgery has helped with her post operative symptoms. She states she still is having left hand numbness. States she has not yet started physical therapy, first session is tomorrow 09/13/2021. States she feels weak in her upper extremities and has some neck stiffness. States she has a hard lump to the right of her incision, denies pain. States she wears the cervical collar intermittently for comfort while driving in the car. States she is taking tylenol intermittently for pain. Denies bowel or bladder dysfunction, gait instability. Denies fever or chills. She is here for evaluation and plan of care. Incision: Healed Current Outpatient Medications Medication Sig Dispense Refill - Alendronate Sodium (FOSAMAX) 70 mg/75 mL solution Take 75 mL by mouth one time a week. 300 mL 11 - acetaminophen (TYLENOL) 325 mg tablet Take 2 tablets by mouth every 4 hours as needed for pain (acute post operative pain). - levothyroxine (SYNTHROID) 25 mcg tablet Take 1 tablet by mouth once daily. - melatonin 3 mg tablet Take 1 tablet by mouth daily at bedtime. - ondansetron (ZOFRAN) 4 mg tablet Take 1 tablet by mouth every 6 hours as needed. - heparin 5,000 unit/mL injection Inject 1 mL subcutaneously every 12 hours. - magnesium hydroxide (MOM) 400 mg/5 mL suspension 30 mL by ORAL/FEEDING TUBE route once daily as needed. - TriFortify Waldo Gel ([employer]) Squeeze tube to fill 1 teaspoon, then swallow twice daily as tolerated Start with 04/12 tsp - cyclobenzaprine (FLEXERIL) 5 mg tablet Take 1 tablet by mouth three times daily. (Patient not taking: Reported on 09/12/2021 ) - senna-docusate (SENNA-S) 8.6-50 mg per tablet 1 tablet by ORAL/FEEDING TUBE route twice daily. (Patient not taking: Reported on 09/12/2021 ) - bisacodyl (DULCOLAX) 10 mg supp 1 Suppository by RECTAL route once daily as needed. (Patient not taking: Reported on 09/12/2021 ) No current facility-administered medications for this visit. Review of Systems Constitutional: Negative for appetite change, chills and fever. HENT: Negative for ear discharge, tinnitus and trouble swallowing. Eyes: Negative for pain, redness and visual disturbance. Respiratory: Negative for cough, shortness of breath and wheezing. Cardiovascular: Negative for chest pain, palpitations and leg swelling. Gastrointestinal: Negative for diarrhea, nausea and vomiting. Endocrine: Negative for cold intolerance and heat intolerance. Genitourinary: Negative for difficulty urinating, frequency and urgency. Musculoskeletal: Positive for neck pain and neck stiffness. Negative for back pain and gait problem. Skin: Negative for color change, rash and wound. Allergic/Immunologic: Negative for environmental allergies and food allergies. Neurological: Positive for numbness. Negative for weakness and headaches. Hematological: Does not bruise/bleed easily. Psychiatric/Behavioral: Negative for agitation and confusion. The patient is not nervous/anxious. PAIN EVALUATION 09/12/2021 0947 Pain Level: 2 Pain Location: Neck Description: Stiffness Duration Units: Weeks Frequency: Intermittent Intervention/Comfort measure: Medication;Therapeutic techniques-CPRP PHYSICAL EXAM: WOUND ASSESSMENT: Incision healing, Well approximated incision, Non-reddened Hard perisagittal lump along right side of incision line w/out breakdown of skin around lump Aaox3, nad, follows commands Strength: L: Delt?5/5, Bi?5/5, Tri?5/5, Refrigerating Machine Operator?5/5, Intrins?5/5 R: Delt?5/5, Bi?5/5, Tri?5/5, Refrigerating Machine Operator?5/5, Intrins?5/5 L: HF?5/5, KE?5/5, DF?5/5, EHL?5/5, PF?5/5 R: HF?5/5, KE?5/5, DF?5/5, EHL?5/5, PF?5/5 Numbness along distal 2-5 digits on left hand Mild left sided thenar eminence wasting ? Negative tafoya's bilaterally No clonus ? Narrow based gait 81 y/o?F?s/p mechanical fall w/ resultant left sided C6/7 facet fracture w/ less than 50% facet fracture area and very mild subluxation?w/?upper extremity weakness, gait imbalance and coronally imbalanced cervical spine w/ widening of right sided C5/6 facet joint s/p C4-T2 PSF, C5-7 decompression now 10 wks post op w/ hard lump around right periincisional line concerning for ?hardware pullout This note was partially generated using [employer] voice recognition system, a (more content not included)...[facility]06-06-2022 History of Present illness Narrative* Sahra Amador MD - 09/12/2021 10:00 AM EDT NEUROSURGERY POST-OP NOTE Sahra Amador MD PhD Date of visit: September 12, 2021 Patient Name: Ms.Diane Valeri Gruber Date of : 1940 Current Age: [age] year old Sex: female MRN/E# [id number] Last Office Visit: 08/15/2021 SURGERY: Cervical 4-Thoracic 2 posterior instrumented fusion, Cervical 5-7 laminectomy decompression Pre-Surgical Symptoms:numbness to left thumb, gait imbalance with falls, weakness to arms bilaterally d/t fall Patient is having their 9 week post operative visit. Patient feels that surgery has helped with her post operative symptoms. She states she still is having left hand numbness. States she has not yet started physical therapy, first session is tomorrow 09/13/2021. States she feels weak in her upper extremities and has some neck stiffness. States she has a hard lump to the right of her incision, denies pain. States she wears the cervical collar intermittently for comfort while driving in the car. States she is taking tylenol intermittently for pain. Denies bowel or bladder dysfunction, gait instability. Denies fever or chills. She is here for evaluation and plan of care. Incision: Healed Current Outpatient Medications Medication Sig Dispense Refill Alendronate Sodium (FOSAMAX) 70 mg/75 mL solution Take 75 mL by mouth one time a week. 300 mL 11 acetaminophen (TYLENOL) 325 mg tablet Take 2 tablets by mouth every 4 hours as needed for pain (acute post operative pain). levothyroxine (SYNTHROID) 25 mcg tablet Take 1 tablet by mouth once daily. melatonin 3 mg tablet Take 1 tablet by mouth daily at bedtime. ondansetron (ZOFRAN) 4 mg tablet Take 1 tablet by mouth every 6 hours as needed. heparin 5,000 unit/mL injection Inject 1 mL subcutaneously every 12 hours. magnesium hydroxide (MOM) 400 mg/5 mL suspension 30 mL by ORAL/FEEDING TUBE route once daily as needed. TriFortify Waldo Gel (Oravel) Squeeze tube to fill 1 teaspoon, then swallow twicedaily as tolerated Start with 1/4 tsp cyclobenzaprine (FLEXERIL) 5 mg tablet Take 1 tablet by mouth three times daily. (Patient not taking: Reported on 09/12/2021 ) senna-docusate (SENNA-S) 8.6-50 mg per tablet 1 tablet by ORAL/FEEDING TUBE route twice daily. (Patient not taking: Reported on 09/12/2021 ) bisacodyl (DULCOLAX) 10 mg supp 1 Suppository by RECTAL route once daily as needed. (Patient not taking: Reported on 09/12/2021 ) No current facility-administered medications for this visit. Review of Systems Constitutional: Negative for appetite change, chills and fever. HENT: Negative for ear discharge, tinnitus and trouble swallowing. Eyes: Negative for pain, redness and visual disturbance. Respiratory: Negative for cough, shortness of breath and wheezing. Cardiovascular: Negative for chest pain, palpitations and leg swelling. Gastrointestinal: Negative for diarrhea, nausea and vomiting. Endocrine: Negative for cold intolerance and heat intolerance. Genitourinary: Negative for difficulty urinating, frequency and urgency. Musculoskeletal: Positive for neck pain and neck stiffness. Negative for back pain and gait problem. Skin: Negative for color change, rash and wound. Allergic/Immunologic: Negative for environmental allergies and food allergies. Neurological: Positive for numbness. Negative for weakness and headaches. Hematological: Does not bruise/bleed easily. Psychiatric/Behavioral: Negative for agitation and confusion. The patient is not nervous/anxious. PAIN EVALUATION 09/12/2021 0947 Pain Level: 2 Pain Location: Neck Description: Stiffness Duration Units: Weeks Frequency: Intermittent Intervention/Comfort measure: Medication;Therapeutic techniques-CPRP PHYSICAL EXAM: WOUND ASSESSMENT: Incision healing, Well approximated incision, Non-reddened Hard perisagittal lump along right side of incision line w/out breakdown of skin around lump Aaox3, nad, follows commands Strength: L: Delt 5/5, Bi 5/5, Tri 5/5, Refrigerating Machine Operator 5/5, Intrins 5/5 R: Delt 5/5, Bi 5/5, Tri 5/5, Refrigerating Machine Operator 5/5, Intrins 5/5 L: HF 5/5, KE 5/5, DF 5/5, EHL 5/5, PF 5/5 R: HF 5/5, KE 5/5, DF 5/5, EHL 5/5, PF 5/5 Numbness along distal 2-5 digits on left hand Mild left sided thenar eminence wasting Negative tafoya's bilaterally No clonus Narrow based gait 81 y/o F s/p mechanical fall w/ resultant left sided C6/7 facet fracture w/ less than 50% facet fracture area and very mild subluxation w/ upper extremity weakness, gait imbalance and coronally imbalanced cervical spine w/ widening of right sided C5/6 facet joint s/p C4-T2 PSF, C5-7 decompression now 10 wks post op w/ hard lump around right periincisional line concerning for ?hardware pullout This note was partially generated using [employer] voice recognition system, and there may be some incorrect words, spellings, and punctuation that were not noted in checking the note before saving. - will obtain upright ap and lateral cervical xrays to evaluate for hardware loosening or failure - patient with improving weakness, scheduled for physical therapy starting tomorrow - will discuss imaging results with patient when obtained - if imaging negative for hardware failure, pt ok to follow up as needed - all questions answered The following portions of the patient's history were reviewed, confirmed, and updated as necessary:allergies, current medications, past family history, past medical history, past social history, past surgical history, problem list, HPI, and ROS obtained by others. Some elements may be copied from a previous office note and have been reviewed/updated where appropriate. All portions reflect current medical decision making from today. The clinical and radiographic findings as well as the risks, benefits and alternatives of treatmenthave been reviewed in detail with the patient. Advised to call the office if symptoms worsen or new symptoms develop. Patient expressed understanding and is in agreement with plan. Sahra Amador MD, PhD Neurosurgery Pager: [phone] September 12, 2021 10:33 AM documented in this encounter[facility]06[facility] Miscellaneous Notes* Telephone Encounter - Ollie Richardson RN - 09/08/2021 2:26 PM EDT Please see 09/02/21 refill encounter. documented in this encounterM[facility]06-01-2022 Miscellaneous Notes* Telephone Encounter - Yvonne Valente APRN.CNP - 09/07/2021 11:54 AM EDT Agree with orders. Yvonne Valente APRN.CNP * Telephone Encounter - Carolyn Steele RN - 09/07/2021 11:20 AM EDT Melody, a PT with [facility] calling with PT plan of care. Patient was evaluated yesterdayand will be seen 1 time per week for 1 week, then 2 times per week for 1 week, then 1 time per weekfor 1 week. No call back needed if agreeable. Thank you. documented in this encounterM[facility]05-27-2022 Miscellaneous Notes* Telephone Encounter - Jaquelin Tolentino MD - 09/02/2021 2:31 PM EDT The following approved medication requests have been transmitted electronically. Refused Prescriptions Disp Refills Alendronate Sodium (FOSAMAX) 70 mg/75 mL solution 300 mL 11 Sig: Take 75 mL by mouth one time a week. DOE: No Refused By: JAQUELIN TOLENTINO Reason for Refusal: Patient needs appointment Jaquelin Tolentino MD * Telephone Encounter - Marlen Vargas Pss - 09/02/2021 9:44 AM EDT Patient has been identified by name and date of : Yes Last office visit in this department: Visit date not found RX INSTRUCTIONS: Patient aware RX escripted to mail away pharmacy. No need to notify patient. Patient phones requesting refills as follows: Pending Prescriptions Disp Refills ALENDRONATE 70 MG/75 ML ORAL SOLUTION 300 mL 11 Sig: Take 75 mL by mouth one time a week. DOE: No Please review and advise. Marlen Vargas Pss documented in this encounterM[facility]05-09-2022 NoteHNO ID: [id number] Author: Sahra Amador MD Service: ? Author Type: Physician Type: Progress Notes Filed: 08/15/2021 2:27 PM Note Text: NEUROSURGERY POST-OP NOTE Sahra Amador MD PhD Date of visit: August 15, 2021 Patient Name: Ms.Diane Valeri Gruber Date of : 1940 Current Age: [age] year old Sex: female MRN/E# [id number] Last Office Visit: 07/25/2021 SURGERY: Cervical 4-Thoracic 2 posterior instrumented fusion, Cervical 5-7 laminectomy decompression ? Pre-Surgical Symptoms:numbness to left thumb, gait imbalance with falls, weakness to arms bilaterally d/t fall Patient is having their 6 week post operative visit. Patient feels that surgery has improved her presurgical symptoms. She notes some neck pain and stiffness to the right side, but notes this is improving. She states 1-2 weeks after her last post operative appointment she developed all digit numbness to her left hand without any weakness. She denies any weakness to her bilateral upper extremities. She notes her weakness to her bilateral lower extremities has improved. Overall, she is pleased with surgery. Incision: Dry and intact, without redness Current Outpatient Medications Medication Sig Dispense Refill - Alendronate Sodium (FOSAMAX) 70 mg/75 mL solution Take 75 mL by mouth one time a week. 300 mL 11 - acetaminophen (TYLENOL) 325 mg tablet Take 2 tablets by mouth every 4 hours as needed for pain (acute post operative pain). - levothyroxine (SYNTHROID) 25 mcg tablet Take 1 tablet by mouth once daily. - cyclobenzaprine (FLEXERIL) 5 mg tablet Take 1 tablet by mouth three times daily. - melatonin 3 mg tablet Take 1 tablet by mouth daily at bedtime. - ondansetron (ZOFRAN) 4 mg tablet Take 1 tablet by mouth every 6 hours as needed. - heparin 5,000 unit/mL injection Inject 1 mL subcutaneously every 12 hours. - magnesium hydroxide (MOM) 400 mg/5 mL suspension 30 mL by ORAL/FEEDING TUBE route once daily as needed. - senna-docusate (SENNA-S) 8.6-50 mg per tablet 1 tablet by ORAL/FEEDING TUBE route twice daily. - bisacodyl (DULCOLAX) 10 mg supp 1 Suppository by RECTAL route once daily as needed. - TriFortify Waldo Gel ([employer]) Squeeze tube to fill 1 teaspoon, then swallow twice daily as tolerated Start with 1/4 tsp No current facility-administered medications for this visit. Review of Systems Constitutional: Negative for chills, fatigue and fever. HENT: Negative for congestion and sore throat. Eyes: Negative for discharge, itching and visual disturbance. Respiratory: Negative for cough and shortness of breath. Cardiovascular: Negative for chest pain and palpitations. Gastrointestinal: Negative for constipation, diarrhea, nausea and vomiting. Endocrine: Negative for cold intolerance and heat intolerance. Genitourinary: Negative for difficulty urinating, frequency and urgency. Musculoskeletal: Positive for neck pain and neck stiffness. Negative for back pain and gait problem. Skin: Negative for rash and wound. Allergic/Immunologic: Negative for environmental allergies and food allergies. Neurological: Negative for dizziness, weakness, light-headedness, numbness and headaches. Hematological: Does not bruise/bleed easily. Psychiatric/Behavioral: Negative for agitation. The patient is not nervous/anxious. PAIN EVALUATION No data found in the last 1 encounters. PHYSICAL EXAM: WOUND ASSESSMENT: Well approximated incision, Non-reddened Aaox3, nad, follows commands Strength: L: Delt 5/5, Bi 5/5, Tri 5/5, Refrigerating Machine Operator 5/5, Intrins 5/5 R: Delt 5/5, Bi 5/5, Tri 5/5, Refrigerating Machine Operator 5/5, Intrins 5/5 L: HF 5/5, KE 5/5, DF 5/5, EHL 5/5, PF 5/5 R: HF 5/5, KE 5/5, DF 5/5, EHL 5/5, PF 5/5 Numbness along distal 2-5 digits on left hand Mild left sided thenar eminence wasting ? Negative tafoya's bilaterally No clonus ? Narrow based gait 81 y/o?F?s/p mechanical fall w/ resultant left sided C6/7 facet fracture w/ less than 50% facet fracture area and very mild subluxation w/ upper extremity weakness, gait imbalance and coronally imbalanced cervical spine w/ widening of right sided C5/6 facet joint s/p C4-T2 PSF, C5-7 decompression now 6 wks post op recovering appropriately This note was partially generated using [employer] voice recognition system, and there may be some incorrect words, spellings, and punctuation that were not noted in checking the note before saving. - no emergent neurosurgical intervention required - patient with improving weakness; no need for further imaging or medication at this time or if symptoms continue to improve - will monitor left hand numbness for now - patient to follow up in 4 weeks to assess continued improvement in symptoms - ok for patient to wear collar for comfort, no need for C collar when upright - all questions answered The following portions of the patient's history were reviewed, confirmed, and updated as necessary: allergies, current (more content not included)...[facility]05-09-2022 Miscellaneous Notes* Telephone Encounter - VICKI Figueroa - 08/15/2021 2:34 PM EDT Thank you for the referral of your patient to [facility]. At this time, we are at capacity and are unable to accept your patient. In order to help your patient receive quality home care, we have included reputable agencies that service this area: [facility] [phone] or [facility] [phone]. Please contact this agency and they will work with your patient to arrange timely services. Thank you, VICKI Figueroa 08/15/2021 2:34 PM documented in this encounterMckitrick [facility]05-09-2022 History of Present illness Narrative* Sahra Amador MD - 08/15/2021 2:00 PM EDT NEUROSURGERY POST-OP NOTE Sahra Amador MD PhD Date of visit: August 15, 2021 Patient Name: Ms.Diane Valeri Gruber Date of : 1940 Current Age: [age] year old Sex: female MRN/E# [id number] Last Office Visit: 07/25/2021 SURGERY: Cervical 4-Thoracic 2 posterior instrumented fusion, Cervical 5-7 laminectomy decompression Pre-Surgical Symptoms:numbness to left thumb, gait imbalance with falls, weakness to arms bilaterally d/t fall Patient is having their 6 week post operative visit. Patient feels that surgery has improved her presurgical symptoms. She notes some neck pain and stiffness to the right side, but notes this is improving. She states 1-2 weeks after her last post operative appointment she developed all digit numbness to her left hand without any weakness. She denies any weakness to her bilateral upper extremities. She notes her weakness to her bilateral lower extremities has improved. Overall, she is pleased with surgery. Incision: Dry and intact, without redness Current Outpatient Medications Medication Sig Dispense Refill Alendronate Sodium (FOSAMAX) 70 mg/75 mL solution Take 75 mL by mouth one time a week. 300 mL 11 acetaminophen (TYLENOL) 325 mg tablet Take 2 tablets by mouth every 4 hours as needed for pain (acute post operative pain). levothyroxine (SYNTHROID) 25 mcg tablet Take 1 tablet by mouth once daily. cyclobenzaprine (FLEXERIL) 5 mg tablet Take 1 tablet by mouth three times daily. melatonin 3 mg tablet Take 1 tablet by mouth daily at bedtime. ondansetron (ZOFRAN) 4 mg tablet Take 1 tablet by mouth every 6 hours as needed. heparin 5,000 unit/mL injection Inject 1 mL subcutaneously every 12 hours. magnesium hydroxide (MOM) 400 mg/5 mL suspension 30 mL by ORAL/FEEDING TUBE route once daily as needed. senna-docusate (SENNA-S) 8.6-50 mg per tablet 1 tablet by ORAL/FEEDING TUBE route twice daily. bisacodyl (DULCOLAX) 10 mg supp 1 Suppository by RECTAL route once daily as needed. TriFortify Waldo Gel (Oravel) Squeeze tube to fill 1 teaspoon, then swallow twicedaily as tolerated Start with / tsp No current facility-administered medications for this visit. Review of Systems Constitutional: Negative for chills, fatigue and fever. HENT: Negative for congestion and sore throat. Eyes: Negative for discharge, itching and visual disturbance. Respiratory: Negative for cough and shortness of breath. Cardiovascular: Negative for chest pain and palpitations. Gastrointestinal: Negative for constipation, diarrhea, nausea and vomiting. Endocrine: Negative for cold intolerance and heat intolerance. Genitourinary: Negative for difficulty urinating, frequency and urgency. Musculoskeletal: Positive for neck pain and neck stiffness. Negative for back pain and gait problem. Skin: Negative for rash and wound. Allergic/Immunologic: Negative for environmental allergies and food allergies. Neurological: Negative for dizziness, weakness, light-headedness, numbness and headaches. Hematological: Does not bruise/bleed easily. Psychiatric/Behavioral: Negative for agitation. The patient is not nervous/anxious. PAIN EVALUATION No data found in the last 1 encounters. PHYSICAL EXAM: WOUND ASSESSMENT: Well approximated incision, Non-reddened Aaox3, nad, follows commands Strength: L: Delt 5/5, Bi 5/5, Tri 5/5, Refrigerating Machine Operator 5/5, Intrins 5/5 R: Delt 5/5, Bi 5/5, Tri 5/5, Refrigerating Machine Operator 5/5, Intrins 5/5 L: HF 5/5, KE 5/5, DF 5/5, EHL 5/5, PF 5/5 R: HF 5/5, KE 5/5, DF 5/5, EHL 5/5, PF 5/5 Numbness along distal 2-5 digits on left hand Mild left sided thenar eminence wasting Negative tafoya's bilaterally No clonus Narrow based gait 81 y/o F s/p mechanical fall w/ resultant left sided C6/7 facet fracture w/ less than 50% facet fracture area and very mild subluxation w/ upper extremity weakness, gait imbalance and coronally imbalanced cervical spine w/ widening of right sided C5/6 facet joint s/p C4-T2 PSF, C5-7 decompression now 6 wks post op recovering appropriately This note was partially generated using [employer] voice recognition system, and there may be some incorrect words, spellings, and punctuation that were not noted in checking the note before saving. - no emergent neurosurgical intervention required - patient with improving weakness; no need for further imaging or medication at this time or if symptoms continue to improve - will monitor left hand numbness for now - patient to follow up in 4 weeks to assess continued improvement in symptoms - ok for patient to wear collar for comfort, no need for C collar when upright - all questions answered The following portions of the patient's history were reviewed, confirmed, and updated as necessary:allergies, current medications, past family history, past medical history, past social history, past surgical history, problem list, HPI, and ROS obtained by others. Some elements may be copied from a previous office note and have been reviewed/updated where appropriate. All portions reflect current medical decision making from today. The clinical and radiographic findings as well as the risks, benefits and alternatives of treatmenthave been reviewed in detail with the patient. Advised to call the office if symptoms worsen or new symptoms develop. Patient expressed understanding and is in agreement with plan. Sahra Amador MD, PhD Neurosurgery Pager: [phone] August 15, 2021 2:27 PM documented in this encounterM[facility]05-04-2022 Miscellaneous Notes* Telephone Encounter - Jaquelin Tolentino MD - 08/10/2021 1:13 PM EDT The following approved medication requests have been transmitted electronically. Signed Prescriptions Disp Refills Alendronate Sodium (FOSAMAX) 70 mg/75 mL solution 300 mL 11 Sig: Take 75 mL by mouth one time a week. DOE: No Jaquelin Tolentino MD documented in this encounterMckitrick Hospital04-27-2022 Miscellaneous Notes* Telephone Encounter - Tsering Loo Ma - 08/03/2021 8:20 AM EDT Order faxed to [phone] as requested. * Telephone Encounter - Ashley Roberson MD - 08/03/2021 8:09 AM EDT I ordered for it. * Telephone Encounter - Shanell Lyles LPN - 08/02/2021 10:46 AM EDT Patient dong calling to check status of request. He said it is difficult to get up and down the steps to go to outpatient therapy. Pending order needs diagnosis. Please advise * Telephone Encounter - Ashley Roberson MD - 08/01/2021 5:43 PM EDT Noted and agree * Telephone Encounter - Carolyn Steele RN - 08/01/2021 3:27 PM EDT Patient's spouse Dong calling and states patient was recently discharged from [facility] after surgery to the back of her neck. He states patient needs to continue therapy and patient would like to receive in home PT and OT. They wish to use [facility], which they used last month. They are requesting Home PT and OT orders be sent to [facility] at FAX #: [phone]. Please call spouse with update on order and fax request. Thank you. documented in this encounterMckitrick Hospital04-26-2022 Miscellaneous Notes* Telephone Encounter - Abeba Thompson - 08/02/2021 11:18 AM EDT Recvd order for PT and OT from Dr Herrera. Called his office to confirm if patient needs OT and if so will need to go elsewhere as OT is not offered here in [place]. Office will be calling back. documented in this encounterMckitrick Hospital04-18-2022 NoteHNO ID: [id number] Author: Sahra Amador MD Service: ? Author Type: Physician Type: Progress Notes Filed: 07/26/2021 10:01 AM Note Text: NEUROSURGERY POST-OP NOTE Sahra Amador MD PhD Date of visit: July 25, 2021 Patient Name: Ms.Diane Valeri Gruber Date of : 1940 Current Age: [age] year old Sex: female MRN/E# [id number] Last Office Visit: 07/07/2021 SURGERY: Cervical 4-Thoracic 2 posterior instrumented fusion, Cervical 5-7 laminectomy decompression Pre-Surgical Symptoms:numbness to left thumb, gait imbalance with falls, weakness to arms bilaterally d/t fall Patient is having their 1st post operative visit. Patient feels that she is improving since her surgery. She notes cervical pain and stiffness, but notes this has improved. She reports numbness into her her first two fingers to her left hand, but also notes this has improved. She reports her bilateral upper extremity weakness has improved. She denies any recent falls. She reports taking Tylenol as needed for pain. Overall, she is pleased with surgery. Incision: Dry and intact, without redness. [place] removed, patient tolerated well. Current Outpatient Medications Medication Sig Dispense Refill - acetaminophen (TYLENOL) 325 mg tablet Take 2 tablets by mouth every 4 hours as needed for pain (acute post operative pain). - levothyroxine (SYNTHROID) 25 mcg tablet Take 1 tablet by mouth once daily. - cyclobenzaprine (FLEXERIL) 5 mg tablet Take 1 tablet by mouth three times daily. - melatonin 3 mg tablet Take 1 tablet by mouth daily at bedtime. - ondansetron (ZOFRAN) 4 mg tablet Take 1 tablet by mouth every 6 hours as needed. - heparin 5,000 unit/mL injection Inject 1 mL subcutaneously every 12 hours. - magnesium hydroxide (MOM) 400 mg/5 mL suspension 30 mL by ORAL/FEEDING TUBE route once daily as needed. - senna-docusate (SENNA-S) 8.6-50 mg per tablet 1 tablet by ORAL/FEEDING TUBE route twice daily. - bisacodyl (DULCOLAX) 10 mg supp 1 Suppository by RECTAL route once daily as needed. - TriFortify Waldo Gel (Oravel) Squeeze tube to fill 1 teaspoon, then swallow twice daily as tolerated Start with / tsp No current facility-administered medications for this visit. Review of Systems Constitutional: Negative for chills, fatigue and fever. HENT: Negative for congestion and sore throat. Eyes: Negative for discharge, itching and visual disturbance. Respiratory: Negative for cough and shortness of breath. Cardiovascular: Negative for chest pain and palpitations. Gastrointestinal: Negative for constipation, diarrhea, nausea and vomiting. Endocrine: Negative for cold intolerance and heat intolerance. Genitourinary: Negative for difficulty urinating, frequency and urgency. Musculoskeletal: Positive for neck pain. Negative for back pain, gait problem and neck stiffness. Skin: Negative for rash and wound. Allergic/Immunologic: Negative for environmental allergies and food allergies. Neurological: Negative for dizziness, weakness, light-headedness, numbness and headaches. Hematological: Does not bruise/bleed easily. Psychiatric/Behavioral: Negative for agitation. The patient is not nervous/anxious. PAIN EVALUATION No data found in the last 1 encounters. PHYSICAL EXAM: WOUND ASSESSMENT: Incision healing, Well approximated incision, Non-reddened Aaox3, nad, follows commands Strength: L: Delt 5/5, Bi 5/5, Tri 5/5, Refrigerating Machine Operator 5/5, Intrins 5/5 R: Delt 5/5, Bi 5/5, Tri 5/5, Refrigerating Machine Operator 5/5, Intrins 5/5 L: HF 5/5, KE 5/5, DF 5/5, EHL 5/5, PF 5/5 R: HF 5/5, KE 5/5, DF 5/5, EHL 5/5, PF 5/5 Mild numbness along C8 distribution of left hand Negative tafoya's bilaterally No clonus Narrow based gait 81 y/o?F?s/p mechanical fall w/ resultant left sided C6/7 facet fracture w/ less than 50% facet fracture area and very mild subluxation w/ upper extremity weakness, gait imbalance and coronally imbalanced cervical spine w/ widening of right sided C5/6 facet joint s/p C4-T2 PSF, C5-7 decompression now 2 wks post op recovering appropriately This note was partially generated using [employer] voice recognition system, and there may be some incorrect words, spellings, and punctuation that were not noted in checking the note before saving. - no emergent neurosurgical intervention required - patient recovering appropriately, edin removed while in office - patient with improving weakness, and with residual numbness that is also improving; no need for further imaging or medication at this time or if symptoms continue to improve - patient to follow up in 4 weeks to assess continued improvement in symptoms - patient to wear collar when up and mobile, and with physical therapy, ok to take collar off when recumbent - all questions answered The following portions of the patient's history were reviewed, confirmed, and updated as necessary: allergies, current medications, past family history, (more content not included)...[facility]04-18-2022 History of Present illness Narrative* Sahra Amador MD - 07/25/2021 11:00 AM EDT NEUROSURGERY POST-OP NOTE Sahra Amador MD PhD Date of visit: July 25, 2021 Patient Name: Ms.Diane Valeri Gruber Date of : 1940 Current Age: [age] year old Sex: female MRN/E# [id number] Last Office Visit: 07/07/2021 SURGERY: Cervical 4-Thoracic 2 posterior instrumented fusion, Cervical 5-7 laminectomy decompression Pre-Surgical Symptoms:numbness to left thumb, gait imbalance with falls, weakness to arms bilaterally d/t fall Patient is having their 1st post operative visit. Patient feels that she is improving since her surgery. She notes cervical pain and stiffness, but notes this has improved. She reports numbness into her her first two fingers to her left hand, but also notes this has improved. She reports her bilateral upper extremity weakness has improved. She denies any recent falls. She reports taking Tylenol as needed for pain. Overall, she is pleased with surgery. Incision: Dry and intact, without redness. [place] removed, patient tolerated well. Current Outpatient Medications Medication Sig Dispense Refill acetaminophen (TYLENOL) 325 mg tablet Take 2 tablets by mouth every 4 hours as needed for pain (acute post operative pain). levothyroxine (SYNTHROID) 25 mcg tablet Take 1 tablet by mouth once daily. cyclobenzaprine (FLEXERIL) 5 mg tablet Take 1 tablet by mouth three times daily. melatonin 3 mg tablet Take 1 tablet by mouth daily at bedtime. ondansetron (ZOFRAN) 4 mg tablet Take 1 tablet by mouth every 6 hours as needed. heparin 5,000 unit/mL injection Inject 1 mL subcutaneously every 12 hours. magnesium hydroxide (MOM) 400 mg/5 mL suspension 30 mL by ORAL/FEEDING TUBE route once daily as needed. senna-docusate (SENNA-S) 8.6-50 mg per tablet 1 tablet by ORAL/FEEDING TUBE route twice daily. bisacodyl (DULCOLAX) 10 mg supp 1 Suppository by RECTAL route once daily as needed. TriFortify Waldo Gel (Oravel) Squeeze tube to fill 1 teaspoon, then swallow twicedaily as tolerated Start with 1/4 tsp No current facility-administered medications for this visit. Review of Systems Constitutional: Negative for chills, fatigue and fever. HENT: Negative for congestion and sore throat. Eyes: Negative for discharge, itching and visual disturbance. Respiratory: Negative for cough and shortness of breath. Cardiovascular: Negative for chest pain and palpitations. Gastrointestinal: Negative for constipation, diarrhea, nausea and vomiting. Endocrine: Negative for cold intolerance and heat intolerance. Genitourinary: Negative for difficulty urinating, frequency and urgency. Musculoskeletal: Positive for neck pain. Negative for back pain, gait problem and neck stiffness. Skin: Negative for rash and wound. Allergic/Immunologic: Negative for environmental allergies and food allergies. Neurological: Negative for dizziness, weakness, light-headedness, numbness and headaches. Hematological: Does not bruise/bleed easily. Psychiatric/Behavioral: Negative for agitation. The patient is not nervous/anxious. PAIN EVALUATION No data found in the last 1 encounters. PHYSICAL EXAM: WOUND ASSESSMENT: Incision healing, Well approximated incision, Non-reddened Aaox3, nad, follows commands Strength: L: Delt 5/5, Bi 5/5, Tri 5/5, Refrigerating Machine Operator 5/5, Intrins 5/5 R: Delt 5/5, Bi 5/5, Tri 5/5, Refrigerating Machine Operator 5/5, Intrins 5/5 L: HF 5/5, KE 5/5, DF 5/5, EHL 5/5, PF 5/5 R: HF 5/5, KE 5/5, DF 5/5, EHL 5/5, PF 5/5 Mild numbness along C8 distribution of left hand Negative tafoya's bilaterally No clonus Narrow based gait 81 y/o F s/p mechanical fall w/ resultant left sided C6/7 facet fracture w/ less than 50% facet fracture area and very mild subluxation w/ upper extremity weakness, gait imbalance and coronally imbalanced cervical spine w/ widening of right sided C5/6 facet joint s/p C4-T2 PSF, C5-7 decompression now 2 wks post op recovering appropriately This note was partially generated using [employer] voice recognition system, and there may be some incorrect words, spellings, and punctuation that were not noted in checking the note before saving. - no emergent neurosurgical intervention required - patient recovering appropriately, edin removed while in office - patient with improving weakness, and with residual numbness that is also improving; no need for further imaging or medication at this time or if symptoms continue to improve - patient to follow up in 4 weeks to assess continued improvement in symptoms - patient to wear collar when up and mobile, and with physical therapy, ok to take collar off when recumbent - all questions answered The following portions of the patient's history were reviewed, confirmed, and updated as necessary:allergies, current medications, past family history, past medical history, past social history, past surgical history, problem list, HPI, and ROS obtained by others. Some elements may be copied from a previous office note and have been reviewed/updated where appropriate. All portions reflect current medical decision making from today. The clinical and radiographic findings as well as the risks, benefits and alternatives of treatmenthave been reviewed in detail with the patient. Advised to call the office if symptoms worsen or new symptoms develop. Patient expressed understanding and is in agreement with plan. Sahra Amador MD, PhD Neurosurgery Pager: [phone] July 26, 2021 10:00 AM [facility] NoteHNO ID: [id number] Author: Merced Almanza RN Service: Care Management Author Type: Registered Nurse Type: Care Mgt Progress Note Filed: 07/18/2021 12:33 PM Note Text: CARE MANAGEMENT DISCHARGE NOTE SERVICE DATE: 07/18/2021 SERVICE TIME: 12:31 PM LOS: 11 days Admission Date: 07/07/2021 DISCHARGE ARRANGEMENT (list agency and phone number) Discharge Arrangement: [facility] Was an expedited discharge program used?: No CAREGIVER ASSESSMENT: Caregiver is ready, willing and able to meet the patient's needs as recommended by the inter-professional team:: Yes Does the patient have an acute stroke diagnosis, or has the patient had a stroke during this admission?: No Patient's transition needs and plan for meeting these needs: patient is discharging to a SNF HANDOFF COMMUNICATION: Handoff to: Primary Care Physician Primary Care Physician Name/Phone: Ashley Roberson MD PCP - General Internal Medicine [phone] TRANSPORTATION ARRANGEMENTS: Transportation Arrangements: Car Discharge Information Row Name Admission (Current) from 07/07/2021 in OR 81 NEURO/CARD [facility] Agency [facility], [facility]. Patient is discharging to [facility] today. is going to drive her to the facility. COVID test and discharge instructions were sent to facility. Confirmed bed availability and insurance authorization. Nurse was provided phone number for hand off. SIGNATURE: Merced Almanza RN PATIENT NAME: Fiona Gruber DATE: July 18, 2021 TIME: 12:31 PM PAGER/CONTACT #: [phone] NoteHNO ID: [id number] Author: Chandan Tolentino MD Service: Hospital Medicine Author Type: Physician Type: Progress Notes Filed: 07/18/2021 10:27 AM Note Text: INPATIENT PROGRESS NOTE CHIEF COMPLAINT: medical management INTERVAL HPI: No new symptoms. Sitting in the chair. BP is stable. PHYSICAL EXAM: BP 127/67 Pulse 97 Temp (Src) 97.5 (Oral) Resp 18 Ht 5' 3.858 (1.62m) Wt 115 lb 15.4 oz (52.6kg) SpO2 97% BMI 19.99 kg/(m2). O2 Therapy: Room Air GENERAL: Alert, no distress, cooperative, wearing a c-collar. drain in place, patient sitting in the chair. Family at bedside. LUNGS: Lungs clear to auscultation, Good diaphragmatic excursion CARDIAC: Normal S1 and S2; no rubs, murmurs, or gallops ABDOMEN: Abdomen soft, non-tender, BS normal, No masses or organomegaly EXTREMITIES: No edema DATA: Diagnostic tests reviewed for today's visit: CBC, Coags, BMP, Mg, Phos Recent Labs 07/18/21 0415 WBC 9.62 HB 10.2* HCT 31.8* PLT 307 NA 135* K 3.7 CHLOR 99 CO2 25 BUN 15 CREAT 0.67 GLUC 95 CA 9.0 Assessment/Plan #C6/7 fracture secondary to fall admitted with worsening left triceps weakness and underwent C4-T2 fusion surgery Patient briefly required ICU stay for hypotension treated with pressors. Patient currently hemodynamically stable. Pain control per primary. #Hypothyroidism-continue with home dose of Synthroid #DVT prophylaxis -patient on heparin PT/OT recommends SNF at discharge. Chandan tolentino MD Staff Hospital Medicine July 18, 2021 10:27 [facility]04-10-2022 NoteHNO ID: [id number] Author: Chandan Tolentino MD Service: Hospital Medicine Author Type: Physician Type: Progress Notes Filed: 07/17/2021 1:11 PM Note Text: INPATIENT PROGRESS NOTE CHIEF COMPLAINT: medical management INTERVAL HPI: No new symptoms. PHYSICAL EXAM: BP 137/69 Pulse 81 Temp (Src) 97.9 (Oral) Resp 18 Ht 5' 3.858 (1.62m) Wt 115 lb 15.4 oz (52.6kg) SpO2 97% BMI 19.99 kg/(m2). O2 Therapy: Room Air GENERAL: Alert, no distress, cooperative, wearing a c-collar. drain in place, patient sitting in the chair. Family at bedside. LUNGS: Lungs clear to auscultation, Good diaphragmatic excursion CARDIAC: Normal S1 and S2; no rubs, murmurs, or gallops ABDOMEN: Abdomen soft, non-tender, BS normal, No masses or organomegaly EXTREMITIES: No edema DATA: Diagnostic tests reviewed for today's visit: CBC, Coags, BMP, Mg, Phos Assessment/Plan #C6/7 fracture secondary to fall admitted with worsening left triceps weakness and underwent C4-T2 fusion surgery Patient briefly required ICU stay for hypotension treated with pressors. Patient currently hemodynamically stable. Pain control per primary. #Hypothyroidism-continue with home dose of Synthroid #DVT prophylaxis -patient on heparin PT/OT recommends SNF at discharge. Chandan tolentino MD Staff [facility] Medicine July 17, 2021 1:11 [facility]04-10-2022 NoteHNO ID: [id number] Author: Shiv Ignacio PA-C Service: Neurosurgery Author Type: Physician Zipper Setter Chainstitch Type: Progress Notes Filed: 07/17/2021 4:01 PM Note Text: Neurosurgery Progress Note SERVICE DATE: 07/17/2021 SUBJECTIVE: Mildly elevated SBPs overnight. Denies any numbness/tingling other than previously in left index. Wants to go home. OBJECTIVE: Vitals: Temp (24hrs), Av.9 ?C (98.4 ?F), Min:36.8 ?C (98.2 ?F), Max:37 ?C (98.6 ?F) BP 152/76 Pulse 95 Temp 37 ?C (98.6 ?F) (Oral) Resp 18 Ht 162.2 cm (5' 3.86) Wt 52.6 kg (115 lb 15.4 oz) SpO2 96% BMI 19.99 kg/m? O2 Therapy: Room Air MEDICATIONS: Current Facility-Administered Medications Medication Dose Route Frequency - levothyroxine 25 mcg tab(s) (SYNTHROID) 25 mcg ORAL DAILY - NaCl 0.9% iv flush bag 20 mL INTRAVENOUS PRN - acetaminophen 650 mg tab(s) (TYLENOL) 650 mg ORAL q 4 H PRN - HYDROcodone 5 mg - acetaminophen 325 mg tablet (NORCO) 1-2 tablet ORAL q 6 H PRN - melatonin 3 mg tab(s) 3 mg ORAL DAILY (8 PM) - ondansetron 4 mg tab(s) (ZOFRAN) 4 mg ORAL q 6 H PRN Or - ondansetron (PF) 4 mg injection (ZOFRAN) 4 mg INTRAVENOUS q 6 H PRN - magnesium hydroxide 400 mg/5 mL 30 mL (MOM) 30 mL ORAL/FEEDING TUBE DAILY PRN - bisacodyl 10 mg suppository (DULCOLAX) 10 mg RECTAL DAILY PRN - cyclobenzaprine 5 mg tab(s) (FLEXERIL) 5 mg ORAL TID - senna-docusate 8.6-50 mg 1 tablet (SENNA-S) 1 tablet ORAL/FEEDING TUBE BID - heparin 5,000 Units injection 5,000 Units SUBCUTANEOUS q 12 H Physical Exam Performed: General - Alert, cooperative, appropriate Resp - even, unlabored GI - abdomen soft, non-tender, non-distended HEENT - Normocephalic. Atraumatic. Neck/Back -?Aquacel covering incision, which is c/d/i. Neuro -?GCS 15.?A+O x3, PERRL, makes eye contact, speech clear, cranial nerves 2-12 grossly intact, MANRIQUE RUE- 5/5 with exception of 4/5 pain limited deltoids LUE- 5/5 with exception of 3/5 left triceps, 4/5 pain limited deltoids, and 4+/5 left intrinsics RLE- 5/5 LLE- 5/5 Extremities- Grossly normal. Symmetrical. No edema, deformity, coloration changes. Pulses- 2+ DP, 2+ radial Labs: CBC, Coags, BMP, Mg, Phos Cardiac Enzymes ABGs Diagnostic tests reviewed for today's visit: Most recent labs and imaging results. ASSESSMENT AND PLAN: Active Hospital Problems Diagnosis Date Noted - C6 cervical fracture (HCC) 07/07/2021 - Hypothyroidism, acquired 05/22/2020 Fiona Gruber is a 81 year old female?admitted on 06/20 for a fall. Found to have left C6 and C7 facet fractures.?Patient?was?direct admit after follow up?visit?found to have worsening?xrays?and left tricep weakness. POD #5?posterior fusion C4-T2? ? -Neuro as above, stable -Pain control: continue regimen -Imaging: No new imaging, uprights complete -Diet: Regular -Dressing(s): LANDRY -Drain(s): Removed -Antibiotic(s): post op vancomycin -Activity/bracing: Cervical collar at all times -Dispo: PT/OT rec SNF/[facility], precert initiated, anticipate patient will not be d/c'ed over weekend -DVT ppx: subq heparin Medication and Non-Pharmacologic VTE Prophylaxis/Anticoagulants Anticoagulant AND Antiplatelet Medications (From admission, onward) Start Dose Route Frequency Last Action Ordered Stop 07/15/21 09 heparin 5,000 Units injection 5,000 Units SUBCUTANEOUS EVERY 12 HOURS Given, 07/17 93007/14/211950 -- 07/12/211814 pneumatic compression stockings (nc,nm) 07/12/211814 activity - mobilize patient ([place], [place]) VTE Prophylaxis: VTE prophylaxis appropriate SIGNATURE: Shiv Ignacio PA-C PATIENT NAME: Fiona Gruber DATE: July 17, 2021 TIME: 9:35 AM [facility]: [phone] NoteHNO ID: [id number] Author: Shiv Ignacio PA-C Service: Neurosurgery Author Type: Physician Zipper Setter Chainstitch Type: Progress Notes Filed: 07/16/2021 12:58 PM Note Text: Neurosurgery Progress Note SERVICE DATE: 07/16/2021 SUBJECTIVE: Patient states neck pain has continued to improve. Denies any new or worsening pain, numbness, tingling, or weakness. Family in room with patient. OBJECTIVE: Vitals: Temp (24hrs), Av.7 ?C (98 ?F), Min:36.4 ?C (97.5 ?F), Max:36.9 ?C (98.4 ?F) BP 132/77 Pulse 95 Temp 36.6 ?C (97.9 ?F) (Oral) Resp 16 Ht 162.2 cm (5' 3.86) Wt 52.6 kg (115 lb 15.4 oz) SpO2 98% BMI 19.99 kg/m? O2 Therapy: Room Air MEDICATIONS: Current Facility-Administered Medications Medication Dose Route Frequency - levothyroxine 25 mcg tab(s) (SYNTHROID) 25 mcg ORAL DAILY - NaCl 0.9% iv flush bag 20 mL INTRAVENOUS PRN - acetaminophen 650 mg tab(s) (TYLENOL) 650 mg ORAL q 4 H PRN - HYDROcodone 5 mg - acetaminophen 325 mg tablet (NORCO) 1-2 tablet ORAL q 6 H PRN - melatonin 3 mg tab(s) 3 mg ORAL DAILY (8 PM) - ondansetron 4 mg tab(s) (ZOFRAN) 4 mg ORAL q 6 H PRN Or - ondansetron (PF) 4 mg injection (ZOFRAN) 4 mg INTRAVENOUS q 6 H PRN - magnesium hydroxide 400 mg/5 mL 30 mL (MOM) 30 mL ORAL/FEEDING TUBE DAILY PRN - bisacodyl 10 mg suppository (DULCOLAX) 10 mg RECTAL DAILY PRN - cyclobenzaprine 5 mg tab(s) (FLEXERIL) 5 mg ORAL TID - senna-docusate 8.6-50 mg 1 tablet (SENNA-S) 1 tablet ORAL/FEEDING TUBE BID - heparin 5,000 Units injection 5,000 Units SUBCUTANEOUS q 12 H Physical Exam Performed: General - Alert, cooperative, appropriate Resp - even, unlabored GI - abdomen soft, non-tender, non-distended HEENT - Normocephalic. Atraumatic. Neck/Back - Aquacel covering incision, which is c/d/i. Neuro -?GCS 15.?A+O x3, PERRL, makes eye contact, speech clear, cranial nerves 2-12 grossly intact, MANRIQUE RUE- 5/5 with exception of 4/5 pain limited deltoids LUE- 5/5 with exception of 3/5 left triceps, 4/5 pain limited deltoids, and 4+/5 left intrinsics RLE- 5/5 LLE- 5/5 Extremities- Grossly normal. Symmetrical. No edema, deformity, coloration changes. Pulses- 2+ DP, 2+ radial Labs: CBC, Coags, BMP, Mg, Phos Recent Labs 07/14/21 0457 WBC 11.49* HB 10.6* HCT 32.8* PLT 243 NA 139 K 3.6* CHLOR 108* CO2 23 BUN 8 CREAT 0.47* GLUC 88 CA 8.3* MG 1.8 P 2.1* Diagnostic tests reviewed for today's visit: Most recent labs and imaging results. ASSESSMENT AND PLAN: Active Hospital Problems Diagnosis Date Noted - C6 cervical fracture (HCC) 07/07/2021 - Hypothyroidism, acquired 05/22/2020 Fiona Gruber is a 81 year old female?admitted on 06/20 for a fall. Found to have left C6 and C7 facet fractures.?Patient was direct admit after follow up visit?found to have worsening xrays and left tricep weakness. POD #4 posterior fusion C4-T2? -Neuro as above, stable -Pain control: continue regimen -Imaging: No new imaging, uprights complete -Diet: Regular -Dressing(s): Aquacel until POD #5 -Drain(s): Removed -Antibiotic(s): post op vancomycin -Activity/bracing: Cervical collar at all times -Dispo: PT/OT rec SNF/[facility], precert initiated, anticipate patient will not be d/c'ed over weekend -DVT ppx: subq heparin Medication and Non-Pharmacologic VTE Prophylaxis/Anticoagulants Anticoagulant AND Antiplatelet Medications (From admission, onward) Start Dose Route Frequency Last Action Ordered Stop 07/15/21 0900 heparin 5,000 Units injection 5,000 Units SUBCUTANEOUS EVERY 12 HOURS Given, 07/16 91007/14/211950 -- 07/12/211814 pneumatic compression stockings ([place], [place]) 07/12/211814 activity - mobilize patient ([place], [place]) VTE Prophylaxis: VTE prophylaxis appropriate SIGNATURE: Shiv Ignacio PA-C PATIENT NAME: Fiona Gruber DATE: July 16, 2021 TIME: 11:22 AM [facility]: [phone]04[facility] NoteHNO ID: [id number] Author: Interface Note Service: ? Author Type: ? Type: Progress Notes Filed: 07/16/2021 3:10 AM Note Text: Epic Scheduled Downtime: 07/16/2021 1:08:47 AM to 07/16/2021 2:53:47 [facility]04-08-2022 NoteHNO ID: [id number] Author: Merced Almanza RN Service: Care Management Author Type: Registered Nurse Type: Care Mgt Progress Note Filed: 07/15/2021 4:03 PM Note Text: CARE MANAGEMENT PROGRESS NOTE SERVICE DATE: 07/15/2021 SERVICE TIME: 4:01 PM LOS: 8 days Needs Prior to Discharge: Precertification;Discharge Transportation No weekend discharge anticipated. Referrals were sent to [facility] and [facility] SNF's per patient and choice. [facility] was not able to accept because there was no available beds. [facility] is able to accept. Additional clinicals were sent to facility. Precert was initiated. Informed the family. SIGNATURE: Merced Almanza RN PATIENT NAME: Fiona Gruber DATE: July 15, 2021 TIME: 4:01 PM PAGER/CONTACT #: [phone] NoteHNO ID: [id number] Author: Rodney Bethea MD Service: Hospital Medicine Author Type: Physician Type: Progress Notes Filed: 07/15/2021 1:13 PM Note Text: INPATIENT PROGRESS NOTE CHIEF COMPLAINT: medical management INTERVAL HPI: Transferred out of an SICU. Briefly after her cervical fusion surgery patient required in SICU care for blood pressure management. She was noted to be hypotensive requiring pressors. And she is weaned off of pressors she is transferred to medical floor. Patient today denies any new complaints. Denies any tingling or numbness. Has some numbness of right index finger that has been a chronic issue. Denies chest pain or shortness of breath. PHYSICAL EXAM: BP 137/73 Pulse 89 Temp (Src) 95.5 (Oral) Resp 18 Ht 5' 3.858 (1.62m) Wt 115 lb 15.4 oz (52.6kg) SpO2 96% BMI 19.99 kg/(m2). O2 Therapy: Room Air GENERAL: Alert, no distress, cooperative, wearing a c-collar. drain in place, patient sitting in the chair. Family at bedside. LUNGS: Lungs clear to auscultation, Good diaphragmatic excursion CARDIAC: Normal S1 and S2; no rubs, murmurs, or gallops ABDOMEN: Abdomen soft, non-tender, BS normal, No masses or organomegaly EXTREMITIES: No edema DATA: Diagnostic tests reviewed for today's visit: CBC, Coags, BMP, Mg, Phos Recent Labs 07/14/21 0457 07/13/21 0421 WBC 11.49* 13.61* HB 10.6* 11.5 HCT 32.8* 35.6* PLT 243 274 INR -- <0.9* APTT -- 24.5 NA 139 134* K 3.6* 4.2 CHLOR 108* 104 CO2 23 20* BUN 8 11 CREAT 0.47* 0.59 GLUC 88 144* CA 8.3* 8.6 MG 1.8 1.7 P 2.1* 2.9 Assessment/Plan #C6/7 fracture secondary to fall admitted with worsening left triceps weakness and underwent C4-T2 fusion surgery Patient briefly required ICU stay for hypotension treated with pressors. Patient currently hemodynamically stable. Pain control per primary. #Hypothyroidism-continue with home dose of Synthroid #DVT prophylaxis -patient on heparin PT/OT recommends SNF at discharge. SIGNATURE: Rodney Bethea MD PATIENT NAME: Fiona Gruber DATE: July 15, 2021 TIME: 1:05 PM PAGER:[facility]04-08-2022 NoteHNO ID: [id number] Author: Shiv Ignacio PA-C Service: Neurosurgery Author Type: Physician Zipper Setter Chainstitch Type: Progress Notes Filed: 07/15/2021 10:16 AM Note Text: Neurosurgery Progress Note SERVICE DATE: 07/15/2021 SUBJECTIVE: NAEON. Patient continues with neck pain and left index numbness she has had prior to injury. Denies any new or worsening numbness/tingling or weakness. OBJECTIVE: Vitals: Temp (24hrs), Av.6 ?C (97.9 ?F), Min:36.3 ?C (97.3 ?F), Max:37 ?C (98.6 ?F) BP 155/79 Pulse 84 Temp 37 ?C (98.6 ?F) (Oral) Resp 18 Ht 162.2 cm (5' 3.86) Wt 52.6 kg (115 lb 15.4 oz) SpO2 96% BMI 19.99 kg/m? O2 Therapy: Room Air MEDICATIONS: Current Facility-Administered Medications Medication Dose Route Frequency - levothyroxine 25 mcg tab(s) (SYNTHROID) 25 mcg ORAL DAILY - NaCl 0.9% iv flush bag 20 mL INTRAVENOUS PRN - acetaminophen 650 mg tab(s) (TYLENOL) 650 mg ORAL q 4 H PRN - HYDROcodone 5 mg - acetaminophen 325 mg tablet (NORCO) 1-2 tablet ORAL q 6 H PRN - melatonin 3 mg tab(s) 3 mg ORAL DAILY (8 PM) - ondansetron 4 mg tab(s) (ZOFRAN) 4 mg ORAL q 6 H PRN Or - ondansetron (PF) 4 mg injection (ZOFRAN) 4 mg INTRAVENOUS q 6 H PRN - magnesium hydroxide 400 mg/5 mL 30 mL (MOM) 30 mL ORAL/FEEDING TUBE DAILY PRN - bisacodyl 10 mg suppository (DULCOLAX) 10 mg RECTAL DAILY PRN - cyclobenzaprine 5 mg tab(s) (FLEXERIL) 5 mg ORAL TID - senna-docusate 8.6-50 mg 1 tablet (SENNA-S) 1 tablet ORAL/FEEDING TUBE BID - NaCl 0.9% iv infusion 5-30 mL/hr INTRAVENOUS CONTINUOUS - heparin 5,000 Units injection 5,000 Units SUBCUTANEOUS q 12 H Physical Exam Performed: General - Alert, cooperative, appropriate Resp - even, unlabored GI - abdomen soft, non-tender, non-distended HEENT - Normocephalic. Atraumatic. Neck/Back - Aquacel covering incision, which is c/d/i Neuro - GCS 15. A+O x3, PERRL, makes eye contact, speech clear, cranial nerves 2-12 grossly intact, MANRIQUE RUE- 5/5 with exception of 4/5 pain limited deltoids LUE- 5/5 with exception of 3/5 left triceps and 4/5 pain limited deltoids RLE- 5/5 LLE- 5/5 Extremities- Grossly normal. Symmetrical. No edema, deformity, coloration changes. Pulses- 2+ DP, 2+ radial Labs: CBC, Coags, BMP, Mg, Phos Recent Labs 07/14/21 0457 07/13/21 0421 WBC 11.49* 13.61* HB 10.6* 11.5 HCT 32.8* 35.6* PLT 243 274 INR -- <0.9* APTT -- 24.5 NA 139 134* K 3.6* 4.2 CHLOR 108* 104 CO2 23 20* BUN 8 11 CREAT 0.47* 0.59 GLUC 88 144* CA 8.3* 8.6 MG 1.8 1.7 P 2.1* 2.9 Cardiac Enzymes ABGs Diagnostic tests reviewed for today's visit: Most recent labs and imaging results. ASSESSMENT AND PLAN: Active Hospital Problems Diagnosis Date Noted - C6 cervical fracture (HCC) 07/07/2021 - Hypothyroidism, acquired 05/22/2020 Fiona Gruber is a 81 year old female?admitted on 06/20 for a fall. Found to have left C6 and C7 facet fractures.?Patient was direct admit after follow up visit?found to have worsening xrays and left tricep weakness. POD #3 posterior fusion C4-T2 -Neuro as above. Continues with left triceps weakness -Pain control: continue regimen -Imaging: No new imaging, uprights complete -Diet: Regular -Dressing(s): Aquacel until POD #5 -Drain(s): removed -Antibiotic(s): Vancomycin complete -Activity/bracing: collar at all times -Dispo: PT/OT rec SNF/[facility], needs FOC and insurance auth -DVT ppx: okay for subq heparin Medication and Non-Pharmacologic VTE Prophylaxis/Anticoagulants Anticoagulant AND Antiplatelet Medications (From admission, onward) Start Dose Route Frequency Last Action Ordered Stop 07/15/21 0900 heparin 5,000 Units injection 5,000 Units SUBCUTANEOUS EVERY 12 HOURS Given, 07/15 0807/14/211950 -- 07/12/211814 pneumatic compression stockings ([place], [place]) 07/12/21 181 activity - mobilize patient ([place]) VTE Prophylaxis: VTE prophylaxis appropriate SIGNATURE: Shiv Ignacio PA-C PATIENT NAME: Fiona Gruber DATE: July 15, 2021 TIME: 8:13 AM Pager: [address] [place], [place] 5023504-07-2022 NoteHNO ID: [id number] Author: Gris Gilliland RN Service: Care Management Author Type: Registered Nurse Type: Care Mgt Progress Note Filed: 07/14/2021 3:15 PM Note Text: CARE MANAGEMENT PROGRESS NOTE SERVICE DATE: 07/14/2021 SERVICE TIME: 1705 LOS: 7 days [place] of Choice Given: Yes Level of Care Discussed: [facility] Facility Financial Disclosure Provided: Yes Financial Disclosure Comments: CC Affiliation Provider List: [facility] Facility Provider list within the patient's requested geographic area shared with the patient/family: Yes within: 20 miles of zip code: [address] Quality and resource use metrics shared with the patient that are relevant to the patient's goals of care and treatment preferences:: Yes Metrics: Skin Integrity;Potentially Preventable 30-day Post Discharge Readmission Rates;Resource Use;Incidence of Major Falls Needs Prior to Discharge: To Be Determined;Accepting Facility;Bed Availability;Facility or Agency Choices;Discharge Transportation Chart reviewed, patient is s/p posterior fusion C4-T 2, secondary to C6 and C7 facet fractures. PT OT evaluations completed, and are recommending SNF LOC. Met with patient and spouse at bedside. Provided them with FOC list. Will need FOC, insurance auth prior to d/c. Will continue to follow. SIGNATURE: Gris Gilliland RN PATIENT NAME: Fiona Gruber DATE: July 14, 2021 TIME: 3:05 PM PAGER/CONTACT #: [phone] NoteHNO ID: [id number] Author: Nikki Lynn [facility]: Pharmacy Author Type: Pharmacist Type: Plan of Care Filed: 07/14/2021 11:56 AM Note Text: PHARMACY MEDICATION REVIEW Patient Name: Fiona Gruber : 1940 The following medications were updated within the SALES SUPPORT ASSISTANT medication list: Medications ADDED to SALES SUPPORT ASSISTANT medication list ? Medications CHANGED on SALES SUPPORT ASSISTANT medication list ? Medications REMOVED from SALES SUPPORT ASSISTANT medication list MEDICATION, NON-DATABASE Discontinued by Patient MEDICATION, NON-DATABASE Discontinued by Patient ProOmega Liquid ([employer]) Course of therapy completed Probiotic 50B (Pure Encapsulations) Course of therapy completed ? Additional comments: Verified medication information with [facility] pharmacy and chart review. Did not confirm with patient/family. Did not check taking box. Patient discharge from [facility] 06/22/2021 for Cervical Spine Fracture. Remove medication, non-database from med list per note stating patient note taking and other medication, non-database incorrectly done - list multiple medications under one heading. Removed proOmega Liquid and Probiotic 50B - note stating patient's doctor stopped on med list. [facility] confirmed current fill dates for Fosamax and levothyroxine. The below information represents the best possible medication history: Yes Medication history completed by: Rn Progressive Care: Tsering Gomez ([employer]) Source of history: Pharmacy records: [employer] [facility] [employer] [phone] and [facility] records Medication nonadherence identified: Unable to assess Reconciliation completed: Yes Completed by: NSICU team All SALES SUPPORT ASSISTANT medications addressed by LIP Patient interested in Bedside Delivery Services or using CC OP Pharmacy at discharge? Unable to assess Preferred outpatient pharmacy: e- [facility]/pharmacy #[id number] [place] [address] - [address] - [phone] [facility] [address] [id number] [employer] [facility] [place] [address] [address] [facility] [phone] Portal to Registered [facility] Sites Allergies: Amoxicillin Hives Comment:GI upset Fall Allergy [Other] Oxycodone GI Upset Penicillins Hives Seasonal Allergies Itching Comment:Fall Prior to Admission Medications Prescriptions Last Dose Informant Patient Reported? Taking? Alendronate Sodium (FOSAMAX) 70 mg/75 mL solution No No Sig: Take 75 mL by mouth one time a week. TriFortify [place] Gel ([employer]) No No Sig: Squeeze tube to fill 1 teaspoon, then swallow twice daily as tolerated Start with 1/4 tsp acetaminophen (TYLENOL EXTRA STRENGTH) 500 mg tablet Yes No Sig: Take 500 mg by mouth every 8 hours as needed. aspirin 81 mg chewable tablet No No Sig: Take 1 tablet by mouth once daily. levothyroxine (SYNTHROID) 25 mcg tablet No No Sig: Take 1 tablet by mouth once daily. Take on empty stomach. For thyroid. Facility-Administered Medications: None Tsering Gomez ([employer])[id number] 07/14/2021[facility]04-07-2022 NoteHNO ID: [id number] Author: Indira Villaseñor PA-C Service: Neurosurgery Author Type: Physician Zipper Setter Chainstitch Type: Progress Notes Filed: 07/14/2021 8:47 AM Note Text: Neurosurgery Progress Note SERVICE DATE: 07/14/2021 SUBJECTIVE: Patient seen and examined at bedside. NAEON. Awake and alert. Maintaining MAP >80, off levo. Denies new numbness, tingling, or weakness since surgery. denies pain in the neck or extremities. LUE weakness and left index finger tingling still present. Able to ambulate to bedside commode with nurse assist. OBJECTIVE: Vitals: Temp (24hrs), Av.4 ?C (97.6 ?F), Min:36.3 ?C (97.3 ?F), Max:36.6 ?C (97.9 ?F) BP 167/88 Pulse 77 Temp 36.5 ?C (97.7 ?F) (Temporal) Resp 19 Ht 162.2 cm (5' 3.86) Wt 52.6 kg (115 lb 15.4 oz) SpO2 97% BMI 19.99 kg/m? O2 Therapy: Room Air IANDO: Date 07/13/21699 - 07/14/2165807/14/21699 - 07/15/21 0659 Shift 6056-9883 5358-8105 2274-1078 24 Hour Total 7506-1716 3448-8567 8189-2248 24 Hour Total INTAKE PO 100 100 PO 100 100 IV 298.6 75 373.6 Volume (mL) 8.6 8.6 Volume (mL) (NaCl 0.9% iv infusion) 290 75 365 Shift Total 398.6 75 473.6 OUTPUT Urine 330 091 871 9266 Void (ml) 975 184 2947 Output ([REMOVED] Indwelling Urinary Catheter 07/12/21 Stone 16 Fr 07/13/21 1630) 330 520 850 Tubes 75 75 Drain/Tube Output (Drain/Tube 07/12/21 1531 Hemovac Midline Posterior Neck Drain #1) 75 75 Shift Total 330 784 264 0089 Weight (kg) 52.6 52.6 52.6 52.6 52.6 52.6 52.6 52.6 Medications: Current Facility-Administered Medications Medication Dose Route Frequency - NORepinephrine iv infusion 16 mg in D5W 250 mL (LEVOPHED) 0.6-30 mcg/min INTRAVENOUS CONTINUOUS - cyclobenzaprine 5 mg tab(s) (FLEXERIL) 5 mg ORAL TID - senna-docusate 8.6-50 mg 1 tablet (SENNA-S) 1 tablet ORAL/FEEDING TUBE BID - NaCl 0.9% iv infusion 75 mL/hr INTRAVENOUS CONTINUOUS - potassium chloride ER 20-40 mEq tab(s) (K-DUR, KLOR-CON) 20-40 mEq ORAL/FEEDING TUBE PRN Or - potassium chloride iv piggyback 20 mEq/100 mL 20 mEq INTRAVENOUS PRN - magnesium sulfate 2 g in sterile water 50 ml 2 g INTRAVENOUS PRN - phosphorus 500 mg tab(s) (K PHOS NEUTRAL) 500 mg ORAL/FEEDING TUBE PRN(NO DISPENSE) - calcium gluconate 4 g in NaCl 0.9% 250 mL 4 g INTRAVENOUS PRN - ondansetron 4 mg tab(s) (ZOFRAN) 4 mg ORAL q 6 H PRN Or - ondansetron (PF) 4 mg injection (ZOFRAN) 4 mg INTRAVENOUS q 6 H PRN - magnesium hydroxide 400 mg/5 mL 30 mL (MOM) 30 mL ORAL/FEEDING TUBE DAILY PRN - bisacodyl 10 mg suppository (DULCOLAX) 10 mg RECTAL DAILY PRN - sodium chloride 0.9 % (flush) 3-5 mL (BD POSIFLUSH) 3-5 mL INTRAVENOUS q 12 H - dexAMETHasone sodium phosphate 2 mg injection (DECADRON) 2 mg INTRAVENOUS q 12 HR - melatonin 3 mg tab(s) 3 mg ORAL DAILY (8 PM) - levothyroxine 25 mcg tab(s) (SYNTHROID) 25 mcg ORAL DAILY - NaCl 0.9% iv flush bag 20 mL INTRAVENOUS PRN - acetaminophen 650 mg tab(s) (TYLENOL) 650 mg ORAL q 4 H PRN - HYDROcodone 5 mg - acetaminophen 325 mg tablet (NORCO) 1-2 tablet ORAL q 6 H PRN Labs: Recent Labs 07/14/21 0457 07/13/21 0421 07/11/21 1009 NA 139 134* -- K 3.6* 4.2 -- CHLOR 108* 104 -- CO2 23 20* -- BUN 8 11 -- CREAT 0.47* 0.59 -- GLUC 88 144* -- ANION 8* 10 -- CA 8.3* 8.6 -- MG 1.8 1.7 -- P 2.1* 2.9 -- WBC 11.49* 13.61* -- HB 10.6* 11.5 -- HCT 32.8* 35.6* -- PLT 243 274 -- INR -- <0.9* 1.0 Imaging: Cervical XR performed 07/13/2021 IMPRESSION: Status post posterior fusion C4-T2 and laminectomy changes at C4-C7. Fractures of C6 and C7 are not well-seen on this study. Exam: GENERAL: No distress, Alert, resting comfortably in bed NEURO: oriented x 3, makes eye contact, speech clear and fluent, hearing grossly intact RUE ALIXE D 4-/5 D 4-/5 B 5/5 B 5/5 T 5/5 T 4-/5 G 5/5 G 5/5 RLE LLE HF 5/5 HF 5/5 KE 5/5 KE 5/5 KF 5/5 KF 5/5 DF 5/5 DF 5/5 PF 5/5 PF 5/5 Sensory: normal sensation to touch in the UE and LE Motor: normal muscle tone, no tremor or spasticity, no pronator drift HEENT: normocephalic, atraumatic NECK/BACK: cervical collar in place LUNGS: Unlabored reathing CARDIAC: Regular rate and rhythm as above EXTREMITIES: MANRIQUE, No deformities, No edema PSYCH: appropriate mood, affect, and conversation ASSESSMENT AND PLAN: Active Hospital Problems Diagnosis Date Noted - C6 cervical fracture (HCC) 07/07/2021 - Hypothyroidism, acquired 05/22/2020 Fiona Gruber is a 81 year old female?admitted on 06/20 for a fall. Found to have left C6 and C7 facet fractures.?Patient is a direct admit after outpatient visit?found to have worsening XR and left tricep weakness. S/p posterior fusion C4-T2 POD2 ? -neuro as above -post-op XR reviewed -pain controlled with tylenol and flexeril -continue [place] J at all times -PT/OT -ICU for 48 hours post-op maintain MAP > 80 - after 5pm (48h post-op) ok to transfer to floor, start DVT, and d/c decadron Portions of (more content not included)...[facility]04-07-2022 NoteHNO ID: [id number] Author: Lucy Martin PA-C Service: Neurology ICU Author Type: Physician Zipper Setter Chainstitch Type: Progress Notes Filed: 07/14/2021 5:33 AM Note Text: Attestation signed by Dong Martínez DO at 07/14/2021 11:30 AM Neuro ICU Progress Note (Staff Addendum) THE NEURO ICU MANAGEMENT OF THIS PATIENT WAS DISCUSSED WITH THE NSICU TEAM UNDER DR. MARTÍNEZ I have reviewed the progress note obtained and documented by the advanced practice provider Lucy Martin. I have personally seen and examined the patient and discussed their management with the CELSA. I reviewed the CELSA note and agree with the documented findings and plan of care. Please see the documented [id number] plan in the updated problem list. PATIENT PROBLEMS I REVIEWED, REVISED AND/OR INITIATED: The care of this patient required my full attention and direct personal management of: Active Problems: Hypothyroidism, acquired C6 cervical fracture (HCC) Resolved Problems: * No resolved hospital problems. * Summary/Impression: Post-op cervical fusion s/p recent fracture. Motor and sensory changes during decompression. NSGY consult to NSICU for BP management and pressors. MAP goal > 80. Brief Exam Findings and Data: Patient is awake and alert. C-Collar in place Pain in posterior neck LUE slightly weaker than RUE; otherwise intact on exam. We made the following changes during rounds: Sustaining MAP without support Transfer to [facility] after 1700 Remove A line Actions/Plans: 81 year old female status post-op cervical fusion due to recent fracture. Concerning for motor and sensory changes during decompression. NSGY consult to NSICU for BP management and pressors. MAP goal > 80. 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 No home anticoagulants, maintain blood pressure control (discussed with family and patient at bedside). Will need to continue daily 81mg ASA for 3 months due to concern for vertebral artery trauma in May. Discussed with NSGY. Ok to start per NSICU. - Norepinephrine now off - Mild tachycardia during evaluation; no home rate-control medications. Patient denies uncontrolled pain, currently only requesting tylenol for pain control. - Tolerating PO diet - Continue optimization of blood pressures for 48 hours - Plan to transfer to [facility] on 07/14 Plan of care discussed with: Patient, Family/Significant Other: Patient's and Son, at bedside, ICU Team, RN, and Pharmacist. ==== STAFF COORDINATION OF CRITICAL CARE [facility] Staff Physician note of personal involvement in Care The patient is critically ill because of imminent risk of acute brain damage and continues to require intensive support and observation. This patient has a high probability of sudden, clinically significant deterioration, which requires the highest level of physician preparedness to intervene urgently. I managed/supervized life or organ supporting interventions that required frequent physician assessment. I devoted my full attention to the direct care of this patient for the amount of time indicated below. Time I spent with family or surrogate(s) is included only if the patient was incapable of providing the necessary information or participating in medical decision making. Time devoted to teaching or to any procedures I billed separately is not included. CRITICAL CARE: I personally spent 60 minutes of critical care time involved in the care of this patient. ==== Dong Martínez DO Staff, Neurointensive Care [facility] Date of Service: 07/14/2021 Time of Service: 11:30 AM SERVICE DATE: 07/14/2021 SERVICE TIME: 4:50AM NEURO ICU PROGRESS NOTE DATE OF ADMISSION: 07/07/2021 Subjective Hospital Course: 07/13: No acute overnight events. Did require low dose levo gtt this AM to maintain MAP >80. Neurologically stable, LUE weakness and left index finger sensory changes remain unchanged. 07/14: No acute events overnight. Maintaining MAP goal >80 without requiring pressor support. Neuro exam unchanged. Objective BP 150/83 Pulse 85 Temp 36.5 ?C (97.7 ?F) (Temporal) Resp 17 Ht 162.2 cm (5' 3.86) Wt 52.6 kg (115 lb 15.4 oz) SpO2 98% BMI 19.99 kg/m? Weight change: Neuro: GCS: Eyes: 4. Spontaneous Verbal: 5: Oriented Motor: 6: Obeys Motor commands Total: 15 MOTOR STRENGTH: 5/5 RUE/RLE, 4/5 LUE (tricep weakness), 5/5 LLE SENSATION: Intact light touch. Left index finger and thumb chronic numbness CV: RRR Pulm: CTA bilaterally, unlabored on RA GI/: Abdomen soft, non tender Skin/Extremities: Edema- No Peripheral pulses- Present all extremities Wounds/Drsgs- Yes Diagnostic tests reviewed for today's visit: Most recent labs and imaging results. personally reviewed Lines, Drains, (more content not included)...[facility] 07-14-2021 NoteHNO ID: [id number] Author: Teri Koroma RN Service: Nursing Author Type: Registered Nurse Type: Nursing Progress Note Filed: 07/13/2021 10:10 PM Note Text: [facility]21 NoteHNO ID: [id number] Author: Rossy Patel RN Service: Nursing Author Type: Registered Nurse Type: Nursing Progress Note Filed: 07/13/2021 8:31 AM Note Text: Rehab services at bedside for evaluation and treatment[facility]-2022 NoteHNO ID: [id number] Author: Rossy Patel RN Service: Nursing Author Type: Registered Nurse Type: Nursing Progress Note Filed: 07/13/2021 6:33 PM Note Text: Report called to Lexus ACKERMAN in NSICU awaiting room to be [facility]Mount [facility]04-[facility]-2022 NoteHNO ID: [id number] Author: Megan Peraza PA-C Service: Neurosurgery Author Type: Physician Zipper Setter Chainstitch Type: Progress Notes Filed: 07/13/2021 7:42 AM Note Text: Attestation signed by Dong Martínez DO at 07/13/2021 2:17 PM Neuro ICU Progress Note (Staff Addendum) THE NEURO ICU MANAGEMENT OF THIS PATIENT WAS DISCUSSED WITH THE NSICU TEAM UNDER DR. MARTÍNEZ I have reviewed the progress note obtained and documented by the advanced practice provider Lucy Martin. I have personally seen and examined the patient and discussed their management with the CELSA. I reviewed the CELSA note and agree with the documented findings and plan of care. Please see the documented [id number] plan in the updated problem list. PATIENT PROBLEMS I REVIEWED, REVISED AND/OR INITIATED: The care of this patient required my full attention and direct personal management of: Active Problems: Hypothyroidism, acquired C6 cervical fracture (HCC) Resolved Problems: * No resolved hospital problems. * Summary/Impression: Post-op cervical fusion s/p recent fracture. Motor and sensory changes during decompression. NSGY consult to NSICU for BP management and pressors. MAP goal > 80. Brief Exam Findings and Data: Patient is awake and alert. C-Collar in place Pain in posterior neck LUE slightly weaker than RUE; otherwise intact on exam. We made the following changes during rounds: Evaluated patient at bedside Ordered 500ccs NS to determine effect on blood pressure Attempted to down-titrate norepinephrine Actions/Plans: 81 year old female status post-op cervical fusion due to recent fracture. Concerning for motor and sensory changes during decompression. NSGY consult to NSICU for BP management and pressors. MAP goal > 80. - Patient continues on low dose norepinephrine. - Tylenol given for pain, patient refused stronger pain medication - Tolerating PO diet - Continue optimization of blood pressures for 48 hours Plan of care discussed with: Patient, ICU Team, RN, and Pharmacist. ==== STAFF COORDINATION OF CRITICAL CARE [facility] Staff Physician note of personal involvement in Care The patient is critically ill because of imminent risk of acute brain damage and continues to require intensive support and observation. This patient has a high probability of sudden, clinically significant deterioration, which requires the highest level of physician preparedness to intervene urgently. I managed/supervized life or organ supporting interventions that required frequent physician assessment. I devoted my full attention to the direct care of this patient for the amount of time indicated below. Time I spent with family or surrogate(s) is included only if the patient was incapable of providing the necessary information or participating in medical decision making. Time devoted to teaching or to any procedures I billed separately is not included. CRITICAL CARE: I personally spent 60 minutes of critical care time involved in the care of this patient. ==== Dong Martínez DO Staff, Neurointensive Care [facility] Date of Service: 07/13/2021 Time of Service: 2:16 PM PROGRESS NOTE NEUROSURGERY SERVICE DATE: 07/13/2021 Subjective INTERVAL HPI Patient POD 1 posterior cervical fusion. Patient c/o pain in posterior neck, across shoulder blades and into right shoulder. Patient reports chronic left thumb and pointer finger numbness. Denies new areas of paresthesias. Current Facility-Administered Medications Medication Dose Route Frequency - levothyroxine 25 mcg tab(s) (SYNTHROID) 25 mcg ORAL DAILY - NaCl 0.9% iv flush bag 20 mL INTRAVENOUS PRN - acetaminophen 650 mg tab(s) (TYLENOL) 650 mg ORAL q 4 H PRN - HYDROcodone 5 mg - acetaminophen 325 mg tablet (NORCO) 1-2 tablet ORAL q 6 H PRN - melatonin 3 mg tab(s) 3 mg ORAL DAILY (8 PM) - NaCl 0.9% iv infusion 75 mL/hr INTRAVENOUS CONTINUOUS - potassium chloride ER 20-40 mEq tab(s) (K-DUR, KLOR-CON) 20-40 mEq ORAL/FEEDING TUBE PRN Or - potassium chloride iv piggyback 20 mEq/100 mL 20 mEq INTRAVENOUS PRN - magnesium sulfate 2 g in sterile water 50 ml 2 g INTRAVENOUS PRN - phosphorus 500 mg tab(s) (K PHOS NEUTRAL) 500 mg ORAL/FEEDING TUBE PRN(NO DISPENSE) - calcium gluconate 4 g in NaCl 0.9% 250 mL 4 g INTRAVENOUS PRN - ondansetron 4 mg tab(s) (ZOFRAN) 4 mg ORAL q 6 H PRN Or - ondansetron (PF) 4 mg injection (ZOFRAN) 4 mg INTRAVENOUS q 6 H PRN - docusate sodium 100 mg cap(s) (COLACE) 100 mg ORAL BID - magnesium hydroxide 400 mg/5 mL 30 mL (MOM) 30 mL ORAL/FEEDING TUBE DAILY PRN - bisacodyl 10 mg suppository (DULCOLAX) 10 mg RECTAL DAILY PRN - sodium chloride 0.9 % (flush) 3-5 mL (BD POSIFLUSH) 3-5 mL INTRAVENOUS q 12 H - vancomycin iv piggyback 1 g (more content not included)...[facility]04-06-2022 NoteHNO ID: [id number] Author: Lucy Martin PA-C Service: Neurology ICU Author Type: Physician Zipper Setter Chainstitch Type: Progress Notes Filed: 07/13/2021 5:59 AM Note Text: SERVICE DATE: 07/13/2021 SERVICE TIME: 5:58 AM NEURO ICU PROGRESS NOTE DATE OF ADMISSION: 07/07/2021 Subjective Hospital Course: 07/13: No acute overnight events. Did require low dose levo gtt this AM to maintain MAP >80. Neurologically stable, LUE weakness and left index finger sensory changes remain unchanged. Objective BP 151/72 Pulse 91 Temp 37.3 ?C (99.1 ?F) (Temporal) Resp 17 Ht 162.2 cm (5' 3.86) Wt 52.6 kg (115 lb 15.4 oz) SpO2 99% BMI 19.99 kg/m? Weight change: Neuro: GCS: Eyes: 4. Spontaneous Verbal: 5: Oriented Motor: 6: Obeys Motor commands Total: 15 MOTOR STRENGTH: 5/5 RUE/RLE, 4/5 LUE (tricep weakness) 5/5 LLE SENSATION: Intact light touch and temperature CV: RRR Pulm: CTA bilaterally, unlabored on RA GI/: Abdomen soft, non tender Skin/Extremities: Edema- No Peripheral pulses- Present all extremities Wounds/Drsgs- Yes Diagnostic tests reviewed for today's visit: Most recent labs and imaging results. personally reviewed Lines, Drains, and Airways Line Arterial Line/Sheath 07/12/21 1621 Left Radial <1 day Peripheral 07/12/21 1045 Short Right Antecubital 20 Gauge <1 day Peripheral 07/12/21 1300 Assessment Short Left Hand 18 Gauge <1 day Drain Indwelling Urinary Catheter 07/12/21 Stone 16 Fr 1 day Drain/Tube 07/12/21 1531 Hemovac Midline Posterior Neck Drain #1 <1 day ICU Checklist A= Assess, Prevent, Manage Pain C= Choice of Sedation and Analgesia B= Both Spontaneous Awakening and Breathing Trials D= Delirium: Assess, Prevent and Manage E= Early Mobility/Excercise ICU Mobility: F= Family Engagement and Empowerment ICU Disposition: Prevention: VTE Prophylaxis: PERSONAL INVOLVEMENT IN CARE: Reviewing initiation, responses and adjustments to therapies, coordination of care, and updating family with Staff Physician, Dr. Martínez. Assessment AND Plan Active Hospital Problems as of 07/13/2021 Noted - Resolved [facility] Hypothyroidism, acquired 05/22/2020 - Present Yes C6 cervical fracture (HCC) 07/07/2021 - Present Yes Current Assessment AND Plan 07/12: Dr. Amador PLAN: - Admit to NSICU - NSGY following. Fu recs - Neuro checks q1h - MAP goal > 80 - Norepinephrine infusion PRN to maintain MAP Goal >80 - Daily labs - Post-Op pain management: PRN fentanyl, hydromorphone, oxycodone, acetaminophen - DVT ppx: IPCs. Hold SQ hepatin for now Medication and Non-Pharmacologic VTE Prophylaxis/Anticoagulants 07/12/211814 vte pharmacologic prophylaxis contraindicated ([place], [place]) 07/12/211814 pneumatic compression stockings ([place] 07/12/211814 activity - mobilize patient ([place]) VTE Prophylaxis: pneumatic compression stockings Plan of care discussed with: Patient, ICU Team and RN This patient has a high probability of sudden, clinically significant deterioration, which requires the highest level of provider preparedness to intervene urgently. I managed/supervised life or organ supporting interventions that required frequent provider assessment. I devoted my full attention to the direct care of this patient for the amount of time indicated below. Time I spent with family or surrogate(s) is included only if the patient was incapable of providing the necessary information or participating in medical decision making. Time devoted to teaching and to any procedures I billed separately is not included. Critical Care Documentation: The patient has the following organ/system impairment(s): Complex life-threatening medical problem(s), Respiratory failure (Acute and/or Chronic), acute neurologic event and/or Severe electrolyte imbalance. Part of my note may have been copied from previous documentation. It has been reviewed and is accurate. Critical care time spent with patient: 35 mins SIGNATURE: Lucy Martin PA-C PATIENT NAME: Fiona Gruber DATE: July 13, 2021 TIME: 5:58 AM [facility]04-05-2022 NoteHNO ID: [id number] Author: Chico Osorio RN Service: ? Author Type: Registered Nurse Type: Nursing Progress Note Filed: 07/12/2021 7:42 PM Note Text: Veinapuncture x 1 to rt forearm, [facility]work [facility]21 NoteHNO ID: [id number] Author: Chico Osorio RN Service: ? Author Type: Registered Nurse Type: Nursing Progress Note Filed: 07/12/2021 7:41 PM Note Text: Dr Strong in to eval pt. Ileostomy changed of blackish/mushy material- new bag appliedMount [facility]04-[facility]-2022 NoteHNO ID: [id number] Author: Adore Mccoy DO Service: Hospital Medicine Author Type: Physician Type: Plan of Care Filed: 07/12/2021 5:17 PM Note Text: Patient was seen briefly in the hallway this morning but she was getting wheeled to surgery. Chart was reviewed. She has remained in the OR throughout the rest of the day. Internal medicine will see the patient tomorrow postoperatively once she is back in her room. Please call with questionsMount [facility] Hospital04-05-2022 NoteHNO ID: [id number] Author: Violeta Schmitt APRN.CRNA Service: Anesthesiology Author Type: Nurse Coke Oven Patcher Type: Anesthesia Procedure Notes Filed: 07/12/2021 4:21 PM Note Text: ANESTHESIOLOGY PROCEDURE NOTE A-Line General Information Patient location during procedure: OR Timeout Performed Pre-procedure: timeout performed Indication: continuous blood pressure monitoring Staffing SRNA: ANDREI Lawson Performed by: ANDREI Preparation Sterility Preparation: hand hygiene performed prior to procedure, sterile gloves, drapes, and procedure tray, surgical cap used, mask used, skin prep agent completely dried prior to procedure Site Prep: Chloraprep Procedure Details Catheter Length: 1.75 in Micropuncture Kit Used: Yes Guidewire Used: Yes Guidewire Removed Intact: YesLaterality: left Site: radial artery Ultrasound Guided: NoLine Secured: Tegaderm and tape Events Events: patient tolerated procedure well with no complications SIGNATURE: Violeta Schmitt APRN.CRNA PATIENT NAME: Fiona Gruber DATE: July 12, 2021 TIME: 4:20 PM CSN: [id number] Desert Island Hospital04-05-2022 NoteHNO ID: [id number] Author: Chico Kim APRN.DRAFTER STRUCTURAL Service: Anesthesiology Author Type: Nurse Coke Oven Patcher Type: Anesthesia Procedure Notes Filed: 07/12/2021 1:04 PM Note Text: ANESTHESIOLOGY PROCEDURE NOTE Airway General Information Procedure Start Time/Medication Administration: 07/12/2021 12:56 PM Patient location during procedure: OR Patient identity confirmed: arm band Staffing DRAFTER STRUCTURAL: Chico Kim APRN.DRAFTER STRUCTURAL Performed by: DRAFTER STRUCTURAL Indications and Patient Condition Preoxygenated: yes Manual In-Line Stabilization: Yes Difficult Mask: No Indications for airway management: anesthesia anesthesia circuit Method: asleep Cricoid Pressure: No Final Airway Details Final airway type: endotracheal airway Final Endotracheal Airway: ETT Cuffed: yes Successful intubation technique: direct laryngoscopy Devices used: Glidescope Endotracheal tube insertion site: oral Blade: Morenita Blade size: #3 ETT size (mm): 7.0 Measured from: lips Measurement (cm): 21 Placement verified by: chest auscultation and capnometry Cormack-Lehane Classification: grade I - full view of glottis SIGNATURE: Grabiel Kim APRN.CRNA PATIENT NAME: Fiona Gruber DATE: July 12, 2021 TIME: 1:03 PM CSN: [id number] Desert Island Hospital04-04-2022 NoteHNO ID: [id number] Author: Adore Mccoy DO Service: Hospital Medicine Author Type: Physician Type: Progress Notes Filed: 07/11/2021 10:37 AM Note Text: DEPARTMENT OF HOSPITAL MEDICINE PROGRESS NOTE SERVICE DATE: 07/11/2021 SERVICE TIME: 10:26 AM Hospital Medicine/Primary Attending: Adore Mccoy DO NIGHT AND WEEKEND COVERAGE: [place] COVERAGE: After 7pm, please call cross cover pager #[phone] Subjective INTERVAL HPI: Patient seen and examined. Patient more confused overnight-apologizes for this now. at bedside. Intermittent confusion at home from time to time. Denies fever, chills, CP, SOB. MEDICATIONS: Reviewed Objective PHYSICAL EXAM: BP 110/65 Pulse 91 Temp (Src) 98.2 (Oral) Resp 17 Ht 5' 3.858 (1.62m) Wt 115 lb 15.4 oz (52.6kg) SpO2 98% BMI 19.99 kg/(m2). O2 Therapy: Room Air Physical Exam Performed Constitutional - Vitals as above, not in acute distress Resp - Clear to auscultate both sides, no wheezes, crackles or rales, no labored breathing CVS- RRR. No murmur, gallop or rub, pulse 2+ GI - NTND, bowel sounds normally heard, no mass palpable CLASSIFICATION AND TREATMENT DIRECTOR- cranial nerves 2 to 12 grossly intact Psych- A ANDO x 3, mood normal Skin- Normal tugor, no ulcers or rashes Lines, Drains, and Airways Line Peripheral 07/07/21 1616 Short Left Hand 20 Gauge 3 days Reviewed lines and needs to be continued: REASONS: Difficulty in obtaining/maintaining access DATA: Diagnostic tests reviewed for today's visit: Most recent labs and imaging results. Assessment/Plan #C6/7 fracture with concern for worsening and worsening weakness noted in tricpes-management as per NS, surgery on Sunday with NS #Possible left vertebral artery injury recently after fall-management as per trauma and NS, had recommend patient to be on asa daily, defer antiplatelet to NS team pending surgery #hypothyroidism-continue synthroid #hx vitamin d deficiency #RBBB-present back to 2018 on chart review #suspect some forgetfulness and possible mild cognitive impairment-patient a and 0 x 3 but repetitive question asking, could have a small degree of delirium going to add melatonin for bed, day/night cycle, can follow up with pcp, discussed with patient and family and NS that likely will worsen with surgery Medication and Non-Pharmacologic VTE Prophylaxis/Anticoagulants Anticoagulant AND Antiplatelet Medications (From admission, onward) Start Dose Route Frequency Last Action Ordered Stop 07/07/21 1700 heparin 5,000 Units injection (Surgical Risk Categories) 5,000 Units SUBCUTANEOUS EVERY 12 HOURS Given, 07/11 0931 07/07/21 1652 07/11/21 2003 VTE Prophylaxis: per primary Disposition: per primary Plan of care discussed with: Provider, RN, Patient SIGNATURE: Adore Mccoy DO PATIENT NAME: Fiona Gruber DATE: July 11, 2021 TIME: 10:26 AM etx [id number] Desert Island Hospital04-04-2022 NoteHNO ID: [id number] Author: Shiv Ignacio PA-C Service: Neurosurgery Author Type: Physician Zipper Setter Chainstitch Type: Progress Notes Filed: 07/11/2021 10:53 AM Note Text: Neurosurgery Progress Note SERVICE DATE: 07/11/2021 SUBJECTIVE: Patient confused this morning, code jim called at 0654. Currently, patient in bed, no acute distress. Denies any neck pain, complains more of needing to wear cervical collar. OBJECTIVE: Vitals: Temp (24hrs), Av.1 ?C (98.8 ?F), Min:36.6 ?C (97.9 ?F), Max:37.5 ?C (99.5 ?F) BP 151/77 Pulse 92 Temp 37.1 ?C (98.8 ?F) (Axillary) Resp 16 Ht 162.2 cm (5' 3.86) Wt 52.6 kg (115 lb 15.4 oz) SpO2 98% BMI 19.99 kg/m? O2 Therapy: Room Air MEDICATIONS: Current Facility-Administered Medications Medication Dose Route Frequency - levothyroxine 25 mcg tab(s) (SYNTHROID) 25 mcg ORAL DAILY - heparin 5,000 Units injection 5,000 Units SUBCUTANEOUS q 12 H - NaCl 0.9% iv flush bag 20 mL INTRAVENOUS PRN - sodium chloride 0.9 % (flush) 3-5 mL (BD POSIFLUSH) 3-5 mL INTRAVENOUS q 12 H - acetaminophen 650 mg tab(s) (TYLENOL) 650 mg ORAL q 4 H PRN - docusate sodium 100 mg cap(s) (COLACE) 100 mg ORAL BID - HYDROcodone 5 mg - acetaminophen 325 mg tablet (NORCO) 1-2 tablet ORAL q 6 H PRN - melatonin 3 mg tab(s) 3 mg ORAL DAILY (8 PM) Physical Exam Performed: General - Alert, cooperative, appropriate Resp - even, unlabored GI - abdomen soft, non-tender, non-distended HEENT - Normocephalic. Atraumatic. [place] Valeri in place. Neck/Back - No midline or paraspinal tenderness. No gross bony deformities. Neuro - GCS 15. A+O x3, PERRL, makes eye contact, speech clear, cranial nerves 2-12 grossly intact, MANRIQUE, strength 5/5 BUE and BLE and equal with exception of 3/5 L Triceps. Extremities- Grossly normal. Symmetrical. No edema, deformity, coloration changes. Pulses- 2+ DP, 2+ radial Labs: CBC, Coags, BMP, Mg, Phos Recent Labs 07/11/21 0319 NA 136 K 3.8 CHLOR 103 CO2 23 BUN 16 CREAT 0.67 GLUC 114* CA 9.4 MG 2.0 Cardiac Enzymes ABGs Diagnostic tests reviewed for today's visit: Most recent labs and imaging results. 07/10/21 CT Cervical IMPRESSION: Fractures of the C6 and C7 facets with minimal progressed anterior location of the fracture fragment at the C6 facet. Widening of the C6-C7 facet articulation on the right with new grade 1 anterolisthesis of C6 on C7 worrisome for ligamentous injury. No new fracture. Anatomic Variant: ?None. ?Assume 7 cervical vertebrae with counting from the craniocervical junction. ASSESSMENT AND PLAN: Active Hospital Problems Diagnosis Date Noted - C6 cervical fracture (HCC) 07/07/2021 Fiona Gruber is a 81 year old female?admitted on 06/20 for a fall. Found to have left C6 and C7 facet fractures.?Patient is a direct admit after outpatient visit?found to have worsening XR and left tricep weakness -Neuro as above, continues to have L triceps weakness -Imaging: CT cervical demonstrates listhesis at C6 on C7 with widening of the C6-7 facets -Pain control: continue current regimen -Brace/Collar: [place] J at all times -Drain(s): n/a -Diet: NPO after midnight -DVT PPX: okay for DVT ppx until Sunday evening -Plan is to proceed with cervical surgery Medication and Non-Pharmacologic VTE Prophylaxis/Anticoagulants Anticoagulant AND Antiplatelet Medications (From admission, onward) Start Dose Route Frequency Last Action Ordered Stop 07/07/21 1700 heparin 5,000 Units injection (Surgical Risk Categories) 5,000 Units SUBCUTANEOUS EVERY 12 HOURS Given, 07/10 220607/07/21 1652 -- VTE Prophylaxis: VTE prophylaxis appropriate SIGNATURE: Shiv Oneail, PA-C PATIENT NAME: Fiona Gruber DATE: July 11, 2021 TIME: 8:23 AM P[facility]: [phone] NoteHNO ID: [id number] Author: Megan Peraza PA-C Service: Neurosurgery Author Type: Physician Zipper Setter Chainstitch Type: Progress Notes Filed: 07/10/2021 1:30 PM Note Text: PROGRESS NOTE NEUROSURGERY SERVICE DATE: 07/10/2021 Subjective INTERVAL HPI NAEON. Patient sitting up in chair w/ son at bedside. No new complaints. Current Facility-Administered Medications Medication Dose Route Frequency - levothyroxine 25 mcg tab(s) (SYNTHROID) 25 mcg ORAL DAILY - heparin 5,000 Units injection 5,000 Units SUBCUTANEOUS q 12 H - NaCl 0.9% iv flush bag 20 mL INTRAVENOUS PRN - sodium chloride 0.9 % (flush) 3-5 mL (BD POSIFLUSH) 3-5 mL INTRAVENOUS q 12 H - acetaminophen 650 mg tab(s) (TYLENOL) 650 mg ORAL q 4 H PRN - docusate sodium 100 mg cap(s) (COLACE) 100 mg ORAL BID - HYDROcodone 5 mg - acetaminophen 325 mg tablet (NORCO) 1-2 tablet ORAL q 6 H PRN Objective Physical Exam Performed: General - Alert, cooperative, appropriate Resp - even, unlabored GI - non-distended HEENT - Normocephalic. Atraumatic. Neuro - A+O x3, PERRL, makes eye contact, speech clear, cranial nerves 2-12 grossly intact, MANRIQUE, strength 5/5 BUE and BLE except left tricep 4/5. No sensory deficits Extremities- Grossly normal. Symmetrical. Pulses- 2+ DP, 2+ radial VITAL SIGNS 24 HOUR REVIEW: Patient Vitals for the past 24 hrs: BP Temp Temp src Pulse Resp SpO2 07/10/21 1200 127/73 36.6 ?C (97.9 ?F) Oral 87 16 100 % 07/10/21 0810 132/70 36.6 ?C (97.9 ?F) Oral 82 16 100 % 07/10/21 0355 158/81 ? ? 79 16 100 % 07/09/21 2232 137/74 36.5 ?C (97.7 ?F) Oral 83 16 100 % 07/09/21 1912 130/80 36.6 ?C (97.9 ?F) Oral 80 16 99 % 07/09/21 1427 142/75 36.6 ?C (97.9 ?F) Oral 71 16 100 % Assessment/Plan Fiona Gruber is a 81 year old female?admitted on 06/20 for a fall. Found to have left C6 and C7 facet fractures. Patient is a direct admit after outpatient visit found to have worsening XR and left tricep weakness ? -neuro as above -CT cervical ordered for preop planning -pain control -continue Cherri Trammell at all times -plan for OR lauren carolina/ Dr. Amador for posterior cervical decompression/fixation -sound on board for preop clearance -ok for DVT ppx until Sunday evening Medication and Non-Pharmacologic VTE Prophylaxis/Anticoagulants Anticoagulant AND Antiplatelet Medications (From admission, onward) Start Dose Route Frequency Last Action Ordered Stop 07/07/21 1700 heparin 5,000 Units injection (Surgical Risk Categories) 5,000 Units SUBCUTANEOUS EVERY 12 HOURS Given, 07/10 0755 07/07/21 1652 -- VTE Prophylaxis: VTE prophylaxis appropriate SIGNATURE: Megan Peraza PA-C PATIENT NAME: Fiona Gruber DATE: July 10, 2021 TIME: 1:29 PM P[phone]22 NoteHNO ID: [id number] Author: Adore Mccoy DO Service: Hospital Medicine Author Type: Physician Type: Progress Notes Filed: 07/10/2021 1:42 PM Note Text: DEPARTMENT OF HOSPITAL MEDICINE PROGRESS NOTE SERVICE DATE: 07/10/2021 SERVICE TIME: 11:45 AM Hospital Medicine/Primary Attending: Adore Mccoy DO NIGHT AND WEEKEND COVERAGE: [place] COVERAGE: After 7pm, please call cross cover pager #[phone] Subjective INTERVAL HPI: Patient seen and examined. No acute events overnight. Denies fever or chills, cp or sob. Son at bedside and visiting. No new complaint. MEDICATIONS: Reviewed Objective PHYSICAL EXAM: BP 127/73 Pulse 87 Temp (Src) 97.9 (Oral) Resp 16 Ht 5' 3.858 (1.62m) Wt 115 lb 15.4 oz (52.6kg) SpO2 100% BMI 19.99 kg/(m2). O2 Therapy: Room Air Physical Exam Performed Constitutional - Vitals as above, not in acute distress Resp - Clear to auscultate both sides, no wheezes, crackles or rales, no labored breathing CVS- RRR. No murmur, gallop or rub, pulse 2+ GI - NTND, bowel sounds normally heard, no mass palpable CLASSIFICATION AND TREATMENT DIRECTOR- cranial nerves 2 to 12 grossly intact Psych- A ANDO x 3, mood normal Skin- Normal tugor, no ulcers or rashes Lines, Drains, and Airways Line Peripheral 07/07/21 1616 Short Left Hand 20 Gauge 2 days Reviewed lines and needs to be continued: REASONS: Difficulty in obtaining/maintaining access DATA: Diagnostic tests reviewed for today's visit: Most recent labs and imaging results. Assessment/Plan #C6/7 fracture with concern for worsening and worsening weakness noted in tricpes-management as per NS, surgery on Sunday with NS #Possible left vertebral artery injury recently after fall-management as per trauma and NS, had recommend patient to be on asa daily, defer antiplatelet to NS team pending surgery #hypothyroidism-continue synthroid #hx vitamin d deficiency #RBBB-present back to 2019 on chart review #suspect some forgetfulness and possible mild cognitive impairment-patient a and 0 x 3 but repetitive question asking, could have a small degree of delirium going to add melatonin for bed, day/night cycle, can follow up with pcp but could worsen after surgery Medication and Non-Pharmacologic VTE Prophylaxis/Anticoagulants Anticoagulant AND Antiplatelet Medications (From admission, onward) Start Dose Route Frequency Last Action Ordered Stop 07/07/21 1700 heparin 5,000 Units injection (Surgical Risk Categories) 5,000 Units SUBCUTANEOUS EVERY 12 HOURS Given, 07/10 0755 07/07/21 1652 -- VTE Prophylaxis: per primary Disposition: per primary Plan of care discussed with: Provider, RN, Patient SIGNATURE: Adore Mccoy DO PATIENT NAME: Fiona Gruber DATE: July 10, 2021 TIME: 11:45 AM etx [id number] [facility]04-[facility] NoteHNO ID: [id number] Author: Megan Peraza PA-C Service: Neurosurgery Author Type: Physician Zipper Setter Chainstitch Type: Progress Notes Filed: 07/09/2021 1:00 PM Note Text: PROGRESS NOTE NEUROSURGERY SERVICE DATE: 07/09/2021 Subjective INTERVAL HPI JIMY. Patient sitting up in chair w/ son at bedside. Answered questions regarding upcoming surgery to patient's satisfaction. C/o mild left sided neck pain and known left pointer finger numbness. Current Facility-Administered Medications Medication Dose Route Frequency - levothyroxine 25 mcg tab(s) (SYNTHROID) 25 mcg ORAL DAILY - heparin 5,000 Units injection 5,000 Units SUBCUTANEOUS q 12 H - NaCl 0.9% iv flush bag 20 mL INTRAVENOUS PRN - sodium chloride 0.9 % (flush) 3-5 mL (BD POSIFLUSH) 3-5 mL INTRAVENOUS q 12 H - acetaminophen 650 mg tab(s) (TYLENOL) 650 mg ORAL q 4 H PRN - docusate sodium 100 mg cap(s) (COLACE) 100 mg ORAL BID - HYDROcodone 5 mg - acetaminophen 325 mg tablet (NORCO) 1-2 tablet ORAL q 6 H PRN Objective Physical Exam Performed: General - Alert, cooperative, appropriate Resp - even, unlabored GI - non-distended HEENT - Normocephalic. Atraumatic. Neuro - A+O x3, PERRL, makes eye contact, speech clear, cranial nerves 2-12 grossly intact, MANRIQUE, strength 5/5 BUE and BLE except left tricep 4/5. No sensory deficits Extremities- Grossly normal. Symmetrical. Pulses- 2+ DP, 2+ radial VITAL SIGNS 24 HOUR REVIEW: Patient Vitals for the past 24 hrs: BP Temp Temp src Pulse Resp SpO2 07/09/21 0736 145/78 36.4 ?C (97.5 ?F) Oral 73 18 99 % 07/09/21 0342 149/90 36.4 ?C (97.6 ?F) Temporal 84 16 99 % 07/09/21 0108 150/70 36.5 ?C (97.7 ?F) Oral 73 16 98 % 07/08/21 1849 121/66 36.1 ?C (97 ?F) Oral 74 16 100 % 07/08/21 1536 122/60 36.3 ?C (97.3 ?F) Oral 82 16 100 % LABS: CBC, Coags, BMP, Mg, Phos Recent Labs 07/07/21 1757 WBC 7.29 HB 13.1 HCT 40.9 PLT 297 NA 137 K 4.3 CHLOR 101 CO2 25 BUN 16 CREAT 0.66 GLUC 93 CA 9.6 Assessment/Plan Fiona Gruber is a 81 year old female admitted on 06/20 for a fall. Found to have left C6 and C7 facet fractures. Patient is a direct admit after outpatient visit found to have worsening XR and left tricep weakness -neuro as above -pain control -continue Cherri Trammell at all times -plan for OR lauren [place]/ Dr. Amador for posterior cervical decompression/fixation -sound on board for preop clearance -ok for DVT ppx until Sunday evening Medication and Non-Pharmacologic VTE Prophylaxis/Anticoagulants Anticoagulant AND Antiplatelet Medications (From admission, onward) Start Dose Route Frequency Last Action Ordered Stop 07/07/21 1700 heparin 5,000 Units injection (Surgical Risk Categories) 5,000 Units SUBCUTANEOUS EVERY 12 HOURS Given, 07/09 0841 07/07/21 1652 -- VTE Prophylaxis: VTE prophylaxis appropriate SIGNATURE: Megan Peraza PA-C PATIENT NAME: Fiona Gruber DATE: July 09, 2021 TIME: 12:54 PM [phone]22 NoteHNO ID: [id number] Author: Adore Mccoy DO Service: Hospital Medicine Author Type: Physician Type: Progress Notes Filed: 07/09/2021 4:29 PM Note Text: DEPARTMENT OF HOSPITAL MEDICINE PROGRESS NOTE SERVICE DATE: 07/09/2021 SERVICE TIME: 12:00 PM Hospital Medicine/Primary Attending: Adore Mccoy DO NIGHT AND WEEKEND COVERAGE: [place] COVERAGE: After 7pm, please call cross cover pager #[phone] Subjective INTERVAL HPI: Patient seen and examined. No acute events overnight. Denies fever or chills, cp or sob. Family at bedside and visiting. No new complaint. MEDICATIONS: Reviewed Objective PHYSICAL EXAM: BP 142/75 Pulse 71 Temp (Src) 97.9 (Oral) Resp 16 Ht 5' 3.858 (1.62m) Wt 115 lb 15.4 oz (52.6kg) SpO2 100% BMI 19.99 kg/(m2). O2 Therapy: Room Air Physical Exam Performed Constitutional - Vitals as above, not in acute distress Resp - Clear to auscultate both sides, no wheezes, crackles or rales, no labored breathing CVS- RRR. No murmur, gallop or rub, pulse 2+ GI - NTND, bowel sounds normally heard, no mass palpable CLASSIFICATION AND TREATMENT DIRECTOR- cranial nerves 2 to 12 grossly intact Psych- A ANDO x 3, mood normal Skin- Normal tugor, no ulcers or rashes Lines, Drains, and Airways Line Peripheral 07/07/21 1616 Short Left Hand 20 Gauge 2 days Reviewed lines and needs to be continued: REASONS: Difficulty in obtaining/maintaining access DATA: Diagnostic tests reviewed for today's visit: Most recent labs and imaging results. Assessment/Plan #C6/7 fracture with concern for worsening and worsening weakness noted in tricpes-management as per NS, surgery on Sunday with NS #Possible left vertebral artery injury recently after fall-management as per trauma and NS, had recommend patient to be on asa daily, defer antiplatelet to NS team pending surgery #hypothyroidism-continue synthroid #hx vitamin d deficiency #RBBB-present back to 2019 on chart review Medication and Non-Pharmacologic VTE Prophylaxis/Anticoagulants Anticoagulant AND Antiplatelet Medications (From admission, onward) Start Dose Route Frequency Last Action Ordered Stop 07/07/21 1700 heparin 5,000 Units injection (Surgical Risk Categories) 5,000 Units SUBCUTANEOUS EVERY 12 HOURS Given, 07/09 0841 07/07/21 1652 -- VTE Prophylaxis: per primary Disposition: per primary Plan of care discussed with: Provider, RN, Patient SIGNATURE: Adore Mccoy DO PATIENT NAME: Fiona Gruber DATE: July 09, 2021 TIME: 12:00 PM etx [id number] NoteHNO ID: [id number] Author: Merced Almanza RN Service: Care Management Author Type: Registered Nurse Type: Care Mgt Initial Assessment Filed: 07/08/2021 4:04 PM Note Text: CARE MANAGEMENT: ASSESSMENT AND DISCHARGE PLAN SERVICE DATE: July 08, 2021 SERVICE TIME: 3:59 PM PRIMARY CARE PHYSICIAN: Ashley Roberson MD ADMISSION STATUS: Inpatient Needs Prior to Discharge: To Be Determined MEDICAL: [employer] MEDICARE HMO Patient/Circular [place] Stated Goals: To have reduction in pain;To improve my functional status Health Insurance: [facility] Medicare Health Issues Impacting Discharge Plan: Chronic Last Discharge Date: 06/22/21 Is this Within the Past 30 days? Last discharge within 30 days: Yes Is this a planned readmission?: No Unplanned Reason: Not Applicable Followed Up with Appointment Prior to Admission: Appointment completed Advance Directive: Health LiteracyHow often do you need to have someone help you when you read instructions, pamphlets, or other written material from your doctor or pharmacy? : 1 - Never How confident are you filling out medical forms by yourself?: 1 - Extremely If Patient scores > 3 on either question, the following interventions were put into place:: Patient did not score > 3 on either question. Baseline Mental Status Prior to this Illness what was the patient's Baseline Mental Status?: Alert AND Oriented Prior to this illness, has anyone described the patient having any of the following behaviors?: Not Applicable Relationship of the informant to the patient:: Self;Spouse Functional Status: Needs Assistance Does Patient Currently Receive Any Community Services or Home Care?: None Equipment Prior to Admission: Cane SOCIAL: Living Arrangements: Home Lives With: Spouse Primary Contact: Extended Emergency Contact Information Primary Emergency Contact: Dong Gruber Mobile Relation: Spouse Caregiver AssessmentCaregiver is ready, willing and able to meet the patient's needs as recommended by the inter-professional team:: Yes Does the patient have an acute stroke diagnosis, or has the patient had a stroke during this admission?: No Patient's transition needs and plan for meeting these needs: lives with who assists with care as needed Patient's perception of need for this admission: fall / fracture Medication Adherance I am convinced of the importance of my prescription medication: 0 - Agree Completely I worry that my prescription medication will do more harm than good to me : 0 - Disagree Completely I feel financially burdened by my [id number] expenses for my prescription medication:: 0 - Disagree Completely Risk Score: 0 Patient is categorized as: Low risk < 2 Are you interested in bedside delivery of your medications? No Is Patient Psychosocially Complex?: No ASSESSMENT AND PLAN: Medical Needs: Medical Needs: Fall risk or frequent falls Psychosocial Needs: Psychosocial Needs: None FREEDOM OF CHOICE EXPLAINED: [place] of Choice Given: No Reason Not Given: Unable to complete with this assessment - revisit POTENTIAL TRANSITION PLANS To Be Determined Per chart review, patient is 81 year old female with PMHx of DEMETRA, diverticulosis, essential tremor, hypercalcemia, hypothyroidism, osteopenia, vitamin B deficiency, and Vitamin D deficiency. Patient previously admitted from 06/20-06/23 subsequent to fall while at home on 06/20. Patient admitted to [facility] from an outside hospital where imaging demonstrated C6 and C7 facet fractures. Patient was discharged from [facility] to home with healthcare in cervical collar to be worn at all times, and started on aspirin 81 mg due to grade 1 left vertebral artery injury versus vasospasm. Patient seen in the clinic today by Dr. Amador, where follow up imaging demonstrated worsening stability centered at C6/C7. Met with patient and at bedside; introduced self and CM role. Prior to admission, patient was independent with ADLs. After previous hospitalization, she required a little bit of assistance which she received from her . During last admission, patient was discharged with [facility]. She is no longer active with them because she achieved her PT goals. Awaiting PT/OT recommendations for post-acute needs. CM will continue to follow and place referrals as appropriate. Patient is scheduled for surgery and will need OT/PT recs after this. No weekend discharge anticipated. SIGNATURE: Merced Almanza RN PATIENT NAME: Fiona Gruber DATE: July 08, 2021 TIME: 3:59 PM PAGER/CONTACT #: [phone] NoteHNO ID: [id number] Author: Indira Villaseñor PA-C Service: Neurosurgery Author Type: Physician Zipper Setter Chainstitch Type: Progress Notes Filed: 07/08/2021 3:33 PM Note Text: Neurosurgery Progress Note SERVICE DATE: 07/08/2021 SUBJECTIVE: NAEON. Patient denies neck pain. Denies new numbness, tingling, or radicular pain. Admits to left arm weakness, states this is unchanged from previous days. Admits to left index finger numbness/tingling, this has been present since her fall on 06/20. Denies lower extremity numbness, tingling, weakness, or radicular pain. OBJECTIVE: Vitals: Temp (24hrs), Av.4 ?C (97.6 ?F), Min:36.3 ?C (97.3 ?F), Max:36.5 ?C (97.7 ?F) BP 133/63 Pulse 68 Temp 36.5 ?C (97.7 ?F) (Oral) Resp 16 Ht 162.2 cm (5' 3.86) Wt 52.6 kg (115 lb 15.4 oz) SpO2 98% BMI 19.99 kg/m? O2 Therapy: Room Air IANDO: Date 07/07/21 1500 - 07/08/21 0659 07/08/21 0700 - 07/09/21 0659 Shift 3340-1265 6423-2320 24 Hour Total 4532-7418 7029-0824 9841-5183 24 Hour Total INTAKE Shift Total OUTPUT Urine Urine Not Saved. 1 x 1 x 1 x 1 x # of BMs Number of BMs 1 x 1 x Shift Total Weight (kg) 52.6 52.6 52.6 52.6 52.6 52.6 52.6 Medications: Current Facility-Administered Medications Medication Dose Route Frequency - levothyroxine 25 mcg tab(s) (SYNTHROID) 25 mcg ORAL DAILY - heparin 5,000 Units injection 5,000 Units SUBCUTANEOUS q 12 H - NaCl 0.9% iv flush bag 20 mL INTRAVENOUS PRN - sodium chloride 0.9 % (flush) 3-5 mL (BD POSIFLUSH) 3-5 mL INTRAVENOUS q 12 H - acetaminophen 650 mg tab(s) (TYLENOL) 650 mg ORAL q 4 H PRN - docusate sodium 100 mg cap(s) (COLACE) 100 mg ORAL BID - HYDROcodone 5 mg - acetaminophen 325 mg tablet (NORCO) 1-2 tablet ORAL q 6 H PRN Labs: Recent Labs 07/07/21 1757 NA 137 K 4.3 CHLOR 101 CO2 25 BUN 16 CREAT 0.66 GLUC 93 ANION 11 CA 9.6 WBC 7.29 HB 13.1 HCT 40.9 PLT 297 Exam: Cranial Nerves: CN II: Visual hill intact CN III, IV, : Extraocular movements intact bilaterally. PERRL bilaterally CN V: Facial sensation is normal bilaterally CN VII: Face is symmetric, no weakness CN VIII: Hearing is intact CN IX, X: Palate elevates symmetrically CN XI: Shoulder shrug strength is normal. CN XII: Tongue midline without atrophy or fasciculations. Strength: RUE ALIXE D 4+/5 D 5/5 B 5/5 B 5/5 T 5/5 T 4/5 G 5/5 G 5/5 RLE LLE HF 5/5 HF 5/5 KE 5/5 KE 5/5 KF 5/5 KF 5/5 DF 5/5 DF 5/5 PF 5/5 PF 5/5 Sensation: Intact to light touch in throughout the upper and lower extremtites except mildly decreased sensation in L index Muscle Tone: Normal, Muscle Bulk: Normal, no spasticity or tremor Reflexes: 3+ biceps and brachioradialis, 2+ bilateral ankle and patella, Positive Right Tafoya's, no ankle clonus Coordination: not examined Gait: not examined Pronator Drift: not examined ASSESSMENT AND PLAN: Active Hospital Problems Diagnosis Date Noted - C6 cervical fracture (HCC) 07/07/2021 Fiona Gruber is a 81 year old female admitted on 06/20 for a fall. Found to have left C6 and C7 facet fractures. Presented to clinic yesterday and found to have worsening XR and left tricep weakness - neuro as above - imaging- reviewed by Dr Amador yes - Cherri granados at all times - planning for surgery on Sunday with Dr Amador - boaz c/s for surgical clearance, EKG and labs pending - pain is controlled- continue current regimen - DVT ppx: ok for subQ heparin - regular diet Portions of text from this note were copied. All relevant information was reviewed and updated accordingly on 07/08/2021 SIGNATURE: Indira Villaseñor PA-C PATIENT NAME: Fiona Gruber DATE: July 08, 2021 TIME: 3:11 PM Pager: [phone]01-[facility] NoteHNO ID: [id number] Author: Adore Mccoy DO Service: Hospital Medicine Author Type: Physician Type: Progress Notes Filed: 07/08/2021 10:34 AM Note Text: DEPARTMENT OF HOSPITAL MEDICINE PROGRESS NOTE SERVICE DATE: 07/08/2021 SERVICE TIME: 10:30 AM Hospital Medicine/Primary Attending: Adore Mccoy DO NIGHT AND WEEKEND COVERAGE: [place] COVERAGE: After 7pm, please call cross cover pager #[phone] Subjective INTERVAL HPI: Patient seen and examined. No acute events overnight. Denies fever or chills, cp or sob. Thinks weakness is about the same. No other change. is at bedside. MEDICATIONS: Reviewed Objective PHYSICAL EXAM: BP 133/63 Pulse 68 Temp (Src) 97.7 (Oral) Resp 16 Ht 5' 3.858 (1.62m) Wt 115 lb 15.4 oz (52.6kg) SpO2 98% BMI 19.99 kg/(m2). O2 Therapy: Room Air Physical Exam Performed Constitutional - Vitals as above, not in acute distress Resp - Clear to auscultate both sides, no wheezes, crackles or rales, no labored breathing CVS- RRR. No murmur, gallop or rub, pulse 2+ GI - NTND, bowel sounds normally heard, no mass palpable CLASSIFICATION AND TREATMENT DIRECTOR- cranial nerves 2 to 12 grossly intact Psych- A ANDO x 3, mood normal Skin- Normal tugor, no ulcers or rashes Lines, Drains, and Airways Line Peripheral 07/07/21 1616 Short Left Hand 20 Gauge <1 day Reviewed lines and needs to be continued: REASONS: Difficulty in obtaining/maintaining access DATA: Diagnostic tests reviewed for today's visit: Most recent labs and imaging results. Assessment/Plan #C6/7 fracture with concern for worsening and worsening weakness noted in tricpes-management as per NS, EKG and labs are pending, will await these, patient will be at some increased surgical risk given her age and she is aware of this, pending ekg and labs, nothing to acutely stop her from proceeding with this surgery to restore neurological function, noted recent normal troponin 07/04 looks like done with pcp, normal stress test 2018, RCRI with class 1 risk which is 3.9% 30 day risk of , MO or cardiac arrest #Possible left vertebral artery injury recently after fall-management as per trauma and NS, had recommend patient to be on asa daily, defer antiplatelet to NS team pending surgery #hypothyroidism-continue synthroid #hx vitamin d deficiency #RBBB-present back to 2019 on chart review Medication and Non-Pharmacologic VTE Prophylaxis/Anticoagulants Anticoagulant AND Antiplatelet Medications (From admission, onward) Start Dose Route Frequency Last Action Ordered Stop 07/07/21 1700 heparin 5,000 Units injection (Surgical Risk Categories) 5,000 Units SUBCUTANEOUS EVERY 12 HOURS Given, 07/08 0815 07/07/21 1652 -- VTE Prophylaxis: per primary Disposition: per primary Plan of care discussed with: Provider, RN, Patient SIGNATURE: Adore Mccoy DO PATIENT NAME: Fiona Gruber DATE: July 08, 2021 TIME: 10:30 AM etx [id number] [facility]03-31-2022 NoteHNO ID: [id number] Author: Sahra Amador MD Service: ? Author Type: Physician Type: Progress Notes Filed: 07/07/2021 11:01 PM Note Text: NEUROSURGERY CONSULT NOTE Sahra Amador MD PhD Date of visit: July 07, 2021 Patient Name: Ms.Diane Valeri Gruber Date of : 1940 Current Age: [age] year old Sex: female MRN/E# [id number] Chief Complaint: Patient presents with: Established Patient: hospital discharge HISTORY OF PRESENT ILLNESS : The patient is a 81 year old female with a past medical history of demetra, tremor, hypercalcemia, IS, osteopenia, sciatica, hyperparathyroidism, b12 and d deficiency who is here for a follow up after hospital discharge. The patient was evaluated at [facility] after a ground level fall in her home. CT imaging demonstrated a left C6 superior facet and C7 inferior fracture. Patient was transferred to [facility] ER on 06/20/21. At the time she noted numbness in her left thumb. She did not require surgical intervention at this time. She was to wear her cervical collar and follow up outpatient, prompting her visit today. Today she states symptoms are worsening. She notes increased gait imbalance since the fall. She continues to have unchanged sensory deficits in the left hand. Additionally notes weakness in her triceps bilaterally. She denies further falls. She denies bowel or bladder incontinence. Upright cervical xrays from 07/07/21 demonstrated coronally imbalanced cervical spine w/ widening of right sided C5/6 facet joint PREVIOUS CONSERVATIVE TREATMENTS: Cervical collar PREVIOUS SURGERY: none PAIN EVALUATION 07/07/2021 1301 Pain Level: 5 Pain Location: Neck Description: Aching;Sore;Spasm Duration Units: Weeks Frequency: Continuous Intervention/Comfort measure: Medication PAST MEDICAL HISTORY Diagnosis Date - Age related osteoporosis - DEMETRA (acute kidney injury) (HCC) 08/18/2019 - Arthritis of both knees 03/08/2015 - Diarrhea - Diverticulosis of colon (without mention of hemorrhage) - Essential tremor 03/08/2016 - Hypercalcemia 03/13/2018 - Hyperparathyroidism, unspecified (HCC) - Hypothyroidism, acquired 05/22/2020 - Irritable bowel syndrome - Osteopenia - Pill dysphagia - Sciatica - Secondary hyperparathyroidism (HCC) 08/02/2010 - Vitamin B 12 deficiency 08/18/2019 - Vitamin D deficiency 01/19/2014 PAST SURGICAL HISTORY Procedure Laterality Date - ADENOIDECTOMY PRIMARY Adenoidectomy - COLONOSCOPY FLX DX W/COLLJ SPEC WHEN PFRMD 08/19/1999 Colonoscopy - COLONOSCOPY FLX DX W/COLLJ SPEC WHEN PFRMD 07/14/2009 Repeat in - COLONOSCOPY FLX DX W/COLLJ SPEC WHEN PFRMD 09/30/2019 Colonoscopy - PAST SURGICAL HISTORY OF Bilateral partial knee replacemenet - TONSILLECTOMY PRIMARY/SECONDARY Tonsillectomy FAMILY HISTORY Problem Relation Age of Onset - Arthritis Mother - other (Dementia) Mother - Heart Father MO, bi-pass surgery X-2/diabetes - Headache Sister - Thyroid Sister - Calcium Disorder No Family History ALLERGIES Allergen Reactions - Amoxicillin Hives GI upset - Fall Allergy [Other] - Penicillins Hives - Seasonal Allergies Itching Fall Current Outpatient Medications Medication Sig Dispense Refill - acetaminophen (TYLENOL EXTRA STRENGTH) 500 mg tablet Take 500 mg by mouth every 8 hours as needed. - levothyroxine (SYNTHROID) 25 mcg tablet Take 1 tablet by mouth once daily. Take on empty stomach. For thyroid. 90 tablet 3 - aspirin 81 mg chewable tablet Take 1 tablet by mouth once daily. 30 tablet 2 - Alendronate Sodium (FOSAMAX) 70 mg/75 mL solution Take 75 mL by mouth one time a week. 300 mL 11 - TriFortify Waldo Gel ([employer]) Squeeze tube to fill 1 teaspoon, then swallow twice daily as tolerated Start with 1/4 tsp - Probiotic 50B (Pure Encapsulations) Take 1 capsule daily - ProOmega Liquid ([employer] Take one teaspoonful daily with food - MEDICATION, NON-DATABASE Levothyroxine 25 mcg ProOmega Liquid - 1 tsp daily L-Glutamine Powder - 1 tsp twice daily Digestive Enzymes Ultra - 1 capsule with small meal, 2 with large meal G.I. Detox - 1 capsule, 2 times a week Medi-Hasmukh 500mg - 1 capsule, 2 times a week Ortho Biotic Probiotic - 1 capsule daily Trifortify Waldo Gel - 1/4 tsp daily (will increase by 1/4 tsp each week up to 1 tsp daily) NAC 600 mg - Has not started yet. Was supposed to be started after she got to 3 capsules Medi-Hasmukh. (Patient not taking: Reported on 06/09/2021 ) - MEDICATION, NON-DATABASE Take 1 tablet by mouth once daily. MagEnhance (Magnesium) (Patient not taking: Reported on 07/07/2021 ) No current facility-administered medications for this visit. REVIEW OF SYSTEMS Review of Systems Constitutional: Negative for chills, diaphoresis and fever. HENT: Negative for congestion, drooling and tinnitus. Eyes: Negative for photophobia, redness and visual disturbance. Respiratory: Negative for cough, shortness of b (more content not included)... [facility]03-31-[facility] NoteHNO ID: [id number] Author: RT Nancy(R) Service: Radiology Author Type: Technologist Type: Progress Notes Filed: 07/07/2021 12:49 PM Note Text: Radiology Service Progress Note PATIENT NAME: Fiona Gruber DATE OF SERVICE: July 07, 2021 TIME: 12:48 PM PATIENT IDENTITY VERIFICATION COMPLETED USING TWO (2) IDENTIFIERS: Name and Date of confirmed by patient verbally. FALL SCREENING: Has the patient had 2 falls in the last year or 1 fall with injury or currently using an Ambulatory Assistive Device (Walker, Cane, Wheelchair, Crutches, etc.)? Yes, Patient High Risk for Falls What interventions were put in place to prevent falls during this visit? Offered Assistance with Transfers/Clothing, Instructed Patient to Remain Seated (Not on Exam Table) Until Exam, and Increased Observations by Caregivers PATIENT GENDER DATA: Female. status: : No status: NO. PATIENT RELEVANT IMPLANT DATA REVIEWED: Not Applicable RADIOLOGY DEPARTMENT: General X-ray: Exam(s) Completed: Spine X-Ray(s): Cervical AP / LAT PERIPHERAL IV DATA: Not applicable SIGNED BY: RT Nancy(R) July 07, 2021 12:48 [facility]03-31-2022 History of Present illness Narrative* Sahra Amador MD - 07/07/2021 1:00 PM EDT NEUROSURGERY CONSULT NOTE Sahra Amador MD PhD Date of visit: July 07, 2021 Patient Name: Ms.Diane Valeri Gruber Date of : 1940 Current Age: [age] year old Sex: female MRN/E# [id number] Chief Complaint: Patient presents with: Established Patient: hospital discharge HISTORY OF PRESENT ILLNESS : The patient is a 81 year old female with a past medical history of demetra, tremor, hypercalcemia, IS, osteopenia, sciatica, hyperparathyroidism, b12 and d deficiency who is here for a follow up after hospital discharge. The patient was evaluated at [facility] after a ground level fall in her home. CT imaging demonstrated a left C6 superior facet and C7 inferior fracture. Patient was transferred to [facility] ER on 06/20/21. At the time she noted numbness in her left thumb. She did not require surgical intervention at this time. She was to wear her cervical collar and follow up outpatient, prompting her visit today. Today she states symptoms are worsening. She notes increased gait imbalance since the fall. She continues to have unchanged sensory deficits in the left hand. Additionally notes weakness in her triceps bilaterally. She denies further falls. She denies bowel or bladder incontinence. Upright cervical xrays from 07/07/21 demonstrated coronally imbalanced cervical spine w/ widening ofright sided C5/6 facet joint PREVIOUS CONSERVATIVE TREATMENTS: Cervical collar PREVIOUS SURGERY: none PAIN EVALUATION 07/07/2021 1301 Pain Level: 5 Pain Location: Neck Description: Aching;Sore;Spasm Duration Units: Weeks Frequency: Continuous Intervention/Comfort measure: Medication PAST MEDICAL HISTORY Diagnosis Date Age related osteoporosis DEMETRA (acute kidney injury) (HCC) 08/18/2019 Arthritis of both knees 03/08/2015 Diarrhea Diverticulosis of colon (without mention of hemorrhage) Essential tremor 03/08/2016 Hypercalcemia 03/13/2018 Hyperparathyroidism, unspecified (HCC) Hypothyroidism, acquired 05/22/2020 Irritable bowel syndrome Osteopenia Pill dysphagia Sciatica Secondary hyperparathyroidism (HCC) 08/02/2010 Vitamin B 12 deficiency 08/18/2019 Vitamin D deficiency 01/19/2014 PAST SURGICAL HISTORY Procedure Laterality Date ADENOIDECTOMY PRIMARY <AGE 12 Adenoidectomy COLONOSCOPY FLX DX W/COLLJ SPEC WHEN PFRMD 08/19/1999 Colonoscopy COLONOSCOPY FLX DX W/COLLJ SPEC WHEN PFRMD 07/14/2009 Repeat in COLONOSCOPY FLX DX W/COLLJ SPEC WHEN PFRMD 09/30/2019 Colonoscopy PAST SURGICAL HISTORY OF Bilateral partial knee replacemenet TONSILLECTOMY PRIMARY/SECONDARY <AGE 12 Tonsillectomy FAMILY HISTORY Problem Relation Age of Onset Arthritis Mother other (Dementia) Mother Heart Father [place], bi-pass surgery X-2/diabetes Headache Sister Thyroid Sister Calcium Disorder No Family History ALLERGIES Allergen Reactions Amoxicillin Hives GI upset Fall Allergy [Other] Penicillins Hives Seasonal Allergies Itching Fall Current Outpatient Medications Medication Sig Dispense Refill acetaminophen (TYLENOL EXTRA STRENGTH) 500 mg tablet Take 500 mg by mouth every 8 hours as needed. levothyroxine (SYNTHROID) 25 mcg tablet Take 1 tablet by mouth once daily. Take on empty stomach. For thyroid. 90 tablet 3 aspirin 81 mg chewable tablet Take 1 tablet by mouth once daily. 30 tablet 2 Alendronate Sodium (FOSAMAX) 70 mg/75 mL solution Take 75 mL by mouth one time a week. 300 mL 11 TriFortify Waldo Gel ([employer]) Squeeze tube to fill 1 teaspoon, then swallow twicedaily as tolerated Start with 1/4 tsp Probiotic 50B (Pure Encapsulations) Take 1 capsule daily ProOmega Liquid ([employer]) Take one teaspoonful daily with food MEDICATION, NON-DATABASE Levothyroxine 25 mcg ProOmega Liquid - 1 tsp daily L-Glutamine Powder - 1 tsp twice daily Digestive Enzymes Ultra - 1 capsule with small meal, 2 with large meal G.I. Detox - 1 capsule, 2 times a week Medi-Hasmukh 500mg - 1 capsule, 2 times a week Ortho Biotic Probiotic - 1 capsule daily Trifortify Waldo Gel - 1/4 tsp daily (will increase by 1/4 tsp each week up to 1 tsp daily) NAC 600 mg - Has not started yet. Was supposed to be started after she got to 3 capsules Medi-Hasmukh.(Patient not taking: Reported on 06/09/2021 ) MEDICATION, NON-DATABASE Take 1 tablet by mouth once daily. MagEnhance (Magnesium) (Patient not taking: Reported on 07/07/2021 ) No current facility-administered medications for this visit. REVIEW OF SYSTEMS Review of Systems Constitutional: Negative for chills, diaphoresis and fever. HENT: Negative for congestion, drooling and tinnitus. Eyes: Negative for photophobia, redness and visual disturbance. Respiratory: Negative for cough, shortness of breath and wheezing. Cardiovascular: Negative for chest pain, palpitations and leg swelling. Gastrointestinal: Negative for constipation, diarrhea, nausea and vomiting. Endocrine: Negative for cold intolerance and heat intolerance. Genitourinary: Negative for difficulty urinating, dysuria, frequency and urgency. Musculoskeletal: Positive for arthralgias, gait problem, myalgias and neck stiffness. Negative for back pain and neck pain. Skin: Negative for rash and wound. Allergic/Immunologic: Negative for environmental allergies and food allergies. Neurological: Positive for weakness and numbness. Negative for dizziness and light-headedness. Hematological: Negative for adenopathy. Does not bruise/bleed easily. Psychiatric/Behavioral: Negative for agitation and confusion. The patient is not nervous/anxious. OBJECTIVE: BP 133/60 Pulse 98 Temp 98.2 Ht 5' 4 (1.63m) Wt 116 lb (52.6kg) SpO2 97% BMI 19.90 kg/(m^2). PHYSICAL EXAM: Aaox3, nad, follows commands Strength: L: Delt 5/5, Bi 5/5, Tri 4/5, WF 5/5, WE 5/5, Refrigerating Machine Operator 5/5, Intrins 5/5 R: Delt 5/5, Bi 5/5, Tri 4/5, WF 5/5, WE 5/5, Refrigerating Machine Operator 5/5, Intrins 5/5 L: HF 5/5, KE 5/5, Inversion 5/5, Eversion 5/5, DF 5/5, EHL 5/5, PF 5/5 R: HF 5/5, KE 5/5, Inversion 5/5, Eversion 5/5, DF 5/5, EHL 5/5, PF 5/5 SILT Negative tafoya's bilaterally No clonus Data Review IMAGING STUDIES: Upright cervical xrays from 07/07/21 demonstrated coronally imbalanced cervical spine w/ widening of right sided C5/6 facet joint 81 y/o F s/p mechanical fall w/ resultant left sided C6/7 facet fracture w/ less than 50% facet fracture area and very mild subluxation initially managed conservatively presenting w/ worsening upper extremity weakness, gait imbalance and coronally imbalanced cervical spine w/ widening of right sided C5/6 facet joint This note was partially generated using Dragon voice recognition system, and there may be some incorrect words, spellings, and punctuation that were not noted in checking the note before saving. - patient is demonstrating signs of instability of cervical spine and progressive deformity, and will need surgical decompression and fixation; approaches from an anterior or posterior approach were discussed but due to the patient's age and concerns for swallowing post operatively following a 2 level ACDF, I would recommend a posterior approach - discussed risks/benefits/alternatives to posterior cervical decompression and fusion including epidural hematomas, spinal cord injury, durotomies, nerve root injuries, patient expressed understanding and wishes to undergo C4-T2 posterior instrumented fusion and C5-7 decompression - patient consented in office - will admit patient to [facility] for surgery in an more urgent manner - bed control notified - all questions answered The following portions of the patient's history were reviewed, confirmed, and updated as necessary:allergies, current medications, past family history, past medical history, past social history, past surgical history, problem list, HPI, and ROS obtained by others. Some elements may be copied from a previous office note and have been reviewed/updated where appropriate. All portions reflect current medical decision making from today. The clinical and radiographic findings as well as the risks, benefits and alternatives of treatmenthave been reviewed in detail with the patient. Advised to call the office if symptoms worsen or new symptoms develop. Patient expressed understanding and is in agreement with plan. Sahra Amador MD, PhD Neurosurgery Pager: [phone] July 07, 2021 11:00 PM documented [facility] History of Present illness Narrative* RT Nancy(R) - 07/07/2021 12:45 PM EDT Radiology Service Progress Note PATIENT NAME: Fiona Gruber DATE OF SERVICE: July 07, 2021 TIME: 12:48 PM PATIENT IDENTITY VERIFICATION COMPLETED USING TWO (2) IDENTIFIERS: Name and Date of confirmedby patient verbally. FALL SCREENING: Has the patient had 2 falls in the last year or 1 fall with injury or currently using an Ambulatory Assistive Device (Walker, Cane, Wheelchair, Crutches, etc.)? Yes, Patient High Riskfor Falls What interventions were put in place to prevent falls during this visit? Offered Assistance with Transfers/Clothing, Instructed Patient to Remain Seated (Not on Exam Table) Until Exam, and Increased Observations by Caregivers PATIENT GENDER DATA: Female. status: : No status: NO. PATIENT RELEVANT IMPLANT DATA REVIEWED: Not Applicable RADIOLOGY DEPARTMENT: General X-ray: Exam(s) Completed: Spine X-Ray(s): Cervical AP / LAT PERIPHERAL IV DATA: Not applicable SIGNED BY: RT Nancy(R) July 07, 2021 12:48 PM documented in this encounterM[facility] History of Present illness Narrative* Ashley Roberson MD - 07/04/2021 11:05 AM EDT Reason for Visit Patient presents with: Established Patient: 3 month follow up- fell fracture C 6-7 Fiona Gruber is a 81 year old female who presents here today for Above Complaints.. Health Maintenance ADVANCE DIRECTIVE DISCUSSION HPI Fall: was making hot chocolate, went to pick something on the other side of the kitchen , her legs got tangled and she fell like a ton of bricks. Fractured her C6 and C7, it was a closed head injury without loss of consciousness. She had a pretty rough Couple weeks... tylenol helped her some. Sincethen she is wearing the neck brace we are hoping for conservative therapy Daughter had questions he wanted addressed 1. Trop was high , so I will check it. 2. Shoulder and hand pain: she has duputrens contracture of the left hand- on the hand that was used to stop the falls. Could have swelled and worsened the contracture. The shoulder pains her only when she uses it, she has degenerative changes in the right AC and Glenohumeral joints. She should see ortho to get injections 3. Currently patient does not need much pain medications. 4. Ok to take baby aspirin 5. The cut on the scalp is well healed. 6. I read the note about her possible amyloid She is having a follow up with the cervical spine surgeon and the brain health Unfortunately the patient likely has dementia and the source of it is not identified, there is somethought that this could be from amyloid? No problem-specific Assessment & Plan notes found for this encounter. PAST MEDICAL HISTORY Diagnosis Date Age related osteoporosis DEMETRA (acute kidney injury) (HCC) 08/18/2019 Arthritis of both knees 03/08/2015 Diarrhea Diverticulosis of colon (without mention of hemorrhage) Essential tremor 03/08/2016 Hypercalcemia 03/13/2018 Hyperparathyroidism, unspecified (HCC) Hypothyroidism, acquired 05/22/2020 Irritable bowel syndrome Osteopenia Pill dysphagia Sciatica Secondary hyperparathyroidism (HCC) 08/02/2010 Vitamin B 12 deficiency 08/18/2019 Vitamin D deficiency 01/19/2014 PAST SURGICAL HISTORY Procedure Laterality Date ADENOIDECTOMY PRIMARY <AGE 12 Adenoidectomy COLONOSCOPY FLX DX W/COLLJ SPEC WHEN PFRMD 08/19/1999 Colonoscopy COLONOSCOPY FLX DX W/COLLJ SPEC WHEN PFRMD 07/14/2009 Repeat in -2019 COLONOSCOPY FLX DX W/COLLJ SPEC WHEN PFRMD 09/30/2019 Colonoscopy PAST SURGICAL HISTORY OF Bilateral partial knee replacemenet TONSILLECTOMY PRIMARY/SECONDARY <AGE 12 Tonsillectomy FAMILY HISTORY Problem Relation Age of Onset Arthritis Mother other (Dementia) Mother Heart Father [place], bi-pass surgery X-2/diabetes Headache Sister Thyroid Sister Calcium Disorder No Family History Social History Tobacco Use Smoking status: Never Smoker Smokeless tobacco: Never Used Substance Use Topics Alcohol use: Yes Comment: Occasionally wine Drug use: No Past medical history, appointments, medications, allergies reviewed. Pertinent Lab/Diagnostic Studies are reviewed and discussed today Current Outpatient Medications: aspirin 81 mg chewable tablet Alendronate Sodium (FOSAMAX) 70 mg/75 mL solution levothyroxine (SYNTHROID) 25 mcg tablet MEDICATION, NON-DATABASE TriFortify Waldo Gel (Researched Nutritionals) Probiotic 50B (Pure Encapsulations) ProOmega Liquid ([place] [employer]) MEDICATION, NON-DATABASE Review of Systems CONSTITUTIONAL: No fevers, chills night sweats, unintended weight loss CARDIOVASCULAR: No chest pain, dyspnea, palpitations, orthopnea, PND, ankle edema. PULM: No dyspnea, unexplained cough. GI: No dysphagia/odynophagia, problematic reflux, constipation, diarrhea, changes in stool habits, hematochezia, melena. : No new urinary complaints, including dysuria, gross hematuria or pyuria. NEURO: No new balance problems, peripheral weakness/paresthesias or numbness of concern. Physical Exam BP 130/60 (BP Site: Right Arm, BP Position: Sitting, BP Cuff Size: Regular Adult) Pulse 83 Temp36.6 C (97.9 F) Resp 12 Ht 163.8 cm (5' 4.5) Wt 52.6 kg (116 lb) SpO2 98% BMI 19.60 kg/m General appearance: Well appearing, alert, in no acute distress, well nourished. Skin: Skin color, texture, turgor normal, no suspicious rashes or lesions Head: Normocephalic, no masses, lesions, tenderness or abnormalities Eyes: Anicteric sclera. Pupils are equally round and reactive to light. Extraocular movements are intact. Lungs: Lungs clear to auscultation. No wheezing, rhonchi, rales Heart: RRR without murmur, gallop, or rubs. Extremities: No deformities, edema, skin discoloration, clubbing or cyanosis. Good capillary refill. ASSESSMENT/PLAN: 1. Elevated troponin - ICD9: 790.6, ICD10: R77.8 (primary diagnosis) - TROPONIN T 2. Arthritis of right acromioclavicular joint - ICD9: 716.91, ICD10: M19.011 - CONSULT TO ORTHOPAEDICS 3. Arthritis of glenohumeral joint - ICD9: 716.91, ICD10: M19.019 - CONSULT TO ORTHOPAEDICS 4. Essential hypertension - ICD9: 401.9, ICD10: I10 - good control - Recommended regular aerobic exercise. - Recommend home blood pressure monitoring, to bring results in on next visit - Goal of BP <130/80 5. Hypothyroidism, acquired - ICD9: 244.9, ICD10: E03.9 - Instructed patient on importance of taking on an empty stomach either first thing in the morning or at bedtime. Stable - Continue current medications 6. Dementia without behavioral disturbance, unspecified dementia type (HCC) - ICD9: 294.20, ICD10: F03.90 See hpi Ashley Roberson MD documented in this encounterM[facility]03[facility] History of Past illness Narrative* Problem Noted Date Resolved Date fall06/22/2021 06/22/2021 DEMETRA (acute kidney injury) 08/18/20192019 Vitamin B 12 deficiency 08/18/2019 08/25/19 20 Hypercalcemia 03/13/2018 08/25/2019 Vitamin D deficiency 01/19/2014 07/04/2017 Vaginal dryness 11/26/2013 11/30/2014 Secondary hyperparathyroidism 08/02/2010 Diarrhea 04/12/2009 03/08/2016 Dysmetabolic syndrome X 07/10/2006 03/08/20 17 documented as of this encounter (statuses as of 07/04/2021) [address]16-2022 History of Past illness Narrative* Problem Noted Date Resolved Date Fall 06/22/2021 06/22/2021 DEMETRA (acute kidney injury) 08/18/20192019 Vitamin B 12 deficiency 08/18/2019 08/25/19 20 Hypercalcemia 03/13/2018 08/25/2019 Vitamin D deficiency 01/19/2014 07/04/2017 Vaginal dryness 11/26/2013 11/30/2014 Secondary hyperparathyroidism 08/02/2010 Diarrhea 04/12/2009 03/08/2016 Dysmetabolic syndrome X 07/10/2006 03/08/20 17 documented as of this encounter (statuses as of 07/04/2021) [address]16-2022 History of Past illness Narrative* Problem Noted Date Resolved Date Fall 06/22/2021 06/22/2021 DEMETRA (acute kidney injury) 08/18/20192019 Vitamin B 12 deficiency 08/18/2019 08/25/19 20 Hypercalcemia 03/13/2018 08/25/2019 Vitamin D deficiency 01/19/2014 07/04/2017 Vaginal dryness 11/26/2013 11/30/2014 Secondary hyperparathyroidism 08/02/2010 Diarrhea 04/12/2009 03/08/2016 Dysmetabolic syndrome X 07/10/2006 03/08/20 17 documented as of this encounter (statuses as of 07/07/2021) [address]16-2022 History of Past illness Narrative* Problem Noted Date Resolved Date Fall 06/22/2021 06/22/2021 DEMETRA (acute kidney injury) 08/18/20192019 Vitamin B 12 deficiency 08/18/2019 08/25/19 20 Hypercalcemia 03/13/2018 08/25/2019 Vitamin D deficiency 01/19/2014 07/04/2017 Vaginal dryness 11/26/2013 11/30/2014 Secondary hyperparathyroidism 08/02/2010 Diarrhea 04/12/2009 03/08/2016 Dysmetabolic syndrome X 07/10/2006 03/08/20 17 documented as of this encounter (statuses as of 07/08/2021) [address]16-2022 History of Past illness Narrative* Problem Noted Date Resolved Date Fall 06/22/2021 06/22/2021 DEMETRA (acute kidney injury) 08/18/20192019 Vitamin B 12 deficiency 08/18/2019 08/25/19 20 Hypercalcemia 03/13/2018 08/25/2019 Vitamin D deficiency 01/19/2014 07/04/2017 Vaginal dryness 11/26/2013 11/30/2014 Secondary hyperparathyroidism 08/02/2010 Diarrhea 04/12/2009 03/08/2016 Dysmetabolic syndrome X 07/10/2006 03/08/20 17 documented as of this encounter (statuses as of 07/22/2021) [address]16-2022 History of Past illness Narrative* Problem Noted Date Resolved Date Fall 06/22/2021 06/22/2021 DEMETRA (acute kidney injury) 08/18/20192019 Vitamin B 12 deficiency 08/18/2019 08/25/19 20 Hypercalcemia 03/13/2018 08/25/2019 Vitamin D deficiency 01/19/2014 07/04/2017 Vaginal dryness 11/26/2013 11/30/2014 Secondary hyperparathyroidism 08/02/2010 Diarrhea 04/12/2009 03/08/2016 Dysmetabolic syndrome X 07/10/2006 03/08/20 17 documented as of this encounter (statuses as of 07/26/2021) [address]16-2022 History of Past illness Narrative* Problem Noted Date Resolved Date Fall 06/22/2021 06/22/2021 DEMETRA (acute kidney injury) 08/18/20192019 Vitamin B 12 deficiency 08/18/2019 08/25/19 20 Hypercalcemia 03/13/2018 08/25/2019 Vitamin D deficiency 01/19/2014 07/04/2017 Vaginal dryness 11/26/2013 11/30/2014 Secondary hyperparathyroidism 08/02/2010 Diarrhea 04/12/2009 03/08/2016 Dysmetabolic syndrome X 07/10/2006 03/08/20 17 documented as of this encounter (statuses as of 08/03/2021) [facility] Narrative* Problem Noted Date Resolved Date Fall 06/22/2021 06/22/2021 DEMETRA (acute kidney injury) 08/18/20192019 Vitamin B 12 deficiency 08/18/2019 08/25/19 20 Hypercalcemia 03/13/2018 08/25/2019 Vitamin D deficiency 01/19/2014 07/04/2017 Vaginal dryness 11/26/2013 11/30/2014 Secondary hyperparathyroidism 08/02/2010 Diarrhea 04/12/2009 03/08/2016 Dysmetabolic syndrome X 07/10/2006 03/08/20 17 documented as of this encounter (statuses as of 08/10/2021) [facility] Narrative* Problem Noted Date Resolved Date Fall 06/22/2021 06/22/2021 DEMETRA (acute kidney injury) 08/18/20192019 Vitamin B 12 deficiency 08/18/2019 08/25/19 20 Hypercalcemia 03/13/2018 08/25/2019 Vitamin D deficiency 01/19/2014 07/04/2017 Vaginal dryness 11/26/2013 11/30/2014 Secondary hyperparathyroidism 08/02/2010 Diarrhea 04/12/2009 03/08/2016 Dysmetabolic syndrome X 07/10/2006 03/08/20 17 documented as of this encounter (statuses as of 08/15/2021) [facility] Narrative* Problem Noted Date Resolved Date Fall 06/22/2021 06/22/2021 DEMETRA (acute kidney injury) 08/18/20192019 Vitamin B 12 deficiency 08/18/2019 08/25/19 20 Hypercalcemia 03/13/2018 08/25/2019 Vitamin D deficiency 01/19/2014 07/04/2017 Vaginal dryness 11/26/2013 11/30/2014 Secondary hyperparathyroidism 08/02/2010 Diarrhea 04/12/2009 03/08/2016 Dysmetabolic syndrome X 07/10/2006 03/08/20 17 documented as of this encounter (statuses as of 08/15/2021) [address]16-2022 History of Past illness Narrative* Problem Noted Date Resolved Date Fall 06/22/2021 06/22/2021 DEMETRA (acute kidney injury) 08/18/20192019 Vitamin B 12 deficiency 08/18/2019 08/25/19 20 Hypercalcemia 03/13/2018 08/25/2019 Vitamin D deficiency 01/19/2014 07/04/2017 Vaginal dryness 11/26/2013 11/30/2014 Secondary hyperparathyroidism 08/02/2010 Diarrhea 04/12/2009 03/08/2016 Dysmetabolic syndrome X 07/10/2006 03/08/20 17 documented as of this encounter (statuses as of 09/02/2021) [facility] Narrative* Problem Noted Date Resolved Date Fall 06/22/2021 06/22/2021 DEMETRA (acute kidney injury) 08/18/20192019 Vitamin B 12 deficiency 08/18/2019 08/25/19 20 Hypercalcemia 03/13/2018 08/25/2019 Vitamin D deficiency 01/19/2014 07/04/2017 Vaginal dryness 11/26/2013 11/30/2014 Secondary hyperparathyroidism 08/02/2010 Diarrhea 04/12/2009 03/08/2016 Dysmetabolic syndrome X 07/10/2006 03/08/20 17 documented as of this encounter (statuses as of 09/07/2021) [address]16-2022 History of Past illness Narrative* Problem Noted Date Resolved Date Fall 06/22/2021 06/22/2021 DEMETRA (acute kidney injury) 08/18/20192019 Vitamin B 12 deficiency 08/18/2019 08/25/19 20 Hypercalcemia 03/13/2018 08/25/2019 Vitamin D deficiency 01/19/2014 07/04/2017 Vaginal dryness 11/26/2013 11/30/2014 Secondary hyperparathyroidism 08/02/2010 Diarrhea 04/12/2009 03/08/2016 Dysmetabolic syndrome X 07/10/2006 03/08/20 17 documented as of this encounter (statuses as of 09/08/2021) [facility] Narrative* Problem Noted Date Resolved Date Fall 06/22/2021 06/22/2021 DEMETRA (acute kidney injury) 08/18/20192019 Vitamin B 12 deficiency 08/18/2019 08/25/19 20 Hypercalcemia 03/13/2018 08/25/2019 Vitamin D deficiency 01/19/2014 07/04/2017 Vaginal dryness 11/26/2013 11/30/2014 Secondary hyperparathyroidism 08/02/2010 Diarrhea 04/12/2009 03/08/2016 Dysmetabolic syndrome X 07/10/2006 03/08/20 17 documented as of this encounter (statuses as of 09/12/2021) [facility] Narrative* Problem Noted Date Resolved Date Fall 06/22/2021 06/22/2021 DEMETRA (acute kidney injury) 08/18/20192019 Vitamin B 12 deficiency 08/18/2019 08/25/19 20 Hypercalcemia 03/13/2018 08/25/2019 Vitamin D deficiency 01/19/2014 07/04/2017 Vaginal dryness 11/26/2013 11/30/2014 Secondary hyperparathyroidism 08/02/2010 Diarrhea 04/12/2009 03/08/2016 Dysmetabolic syndrome X 07/10/2006 03/08/20 17 documented as of this encounter (statuses as of 10/21/2021) [facility] Narrative* Problem Noted Date Resolved Date Fall 06/22/2021 06/22/2021 DEMETRA (acute kidney injury) 08/18/20192019 Vitamin B 12 deficiency 08/18/2019 08/25/19 20 Hypercalcemia 03/13/2018 08/25/2019 Vitamin D deficiency 01/19/2014 07/04/2017 Vaginal dryness 11/26/2013 11/30/2014 Secondary hyperparathyroidism 08/02/2010 Diarrhea 04/12/2009 03/08/2016 Dysmetabolic syndrome X 07/10/2006 03/08/20 17 documented as of this encounter (statuses as of 10/25/2021) [address]16-2022 History of Past illness Narrative* Problem Noted Date Resolved Date Fall 06/22/2021 06/22/2021 DEMETRA (acute kidney injury) 08/18/20192019 Vitamin B 12 deficiency 08/18/2019 08/25/19 20 Hypercalcemia 03/13/2018 08/25/2019 Vitamin D deficiency 01/19/2014 07/04/2017 Vaginal dryness 11/26/2013 11/30/2014 Secondary hyperparathyroidism 08/02/2010 Diarrhea 04/12/2009 03/08/2016 Dysmetabolic syndrome X 07/10/2006 03/08/20 17 documented as of this encounter (statuses as of 10/26/2021) [facility] Narrative* Problem Noted Date Resolved Date Fall 06/22/2021 06/22/2021 DEMETRA (acute kidney injury) 08/18/20192019 Vitamin B 12 deficiency 08/18/2019 08/25/19 20 Hypercalcemia 03/13/2018 08/25/2019 Vitamin D deficiency 01/19/2014 07/04/2017 Vaginal dryness 11/26/2013 11/30/2014 Secondary hyperparathyroidism 08/02/2010 Diarrhea 04/12/2009 03/08/2016 Dysmetabolic syndrome X 07/10/2006 03/08/20 17 documented as of this encounter (statuses as of 11/11/2021) [facility] Narrative* Problem Noted Date Resolved Date Fall 06/22/2021 06/22/2021 DEMETRA (acute kidney injury) 08/18/20192019 Vitamin B 12 deficiency 08/18/2019 08/25/19 20 Hypercalcemia 03/13/2018 08/25/2019 Vitamin D deficiency 01/19/2014 07/04/2017 Vaginal dryness 11/26/2013 11/30/2014 Secondary hyperparathyroidism 08/02/2010 Diarrhea 04/12/2009 03/08/2016 Dysmetabolic syndrome X 07/10/2006 03/08/20 17 documented as of this encounter (statuses as of 11/17/2021) [facility] Narrative* Problem Noted Date Resolved Date Fall 06/22/2021 06/22/2021 DEMETRA (acute kidney injury) 08/18/20192019 Vitamin B 12 deficiency 08/18/2019 08/25/19 20 Hypercalcemia 03/13/2018 08/25/2019 Vitamin D deficiency 01/19/2014 07/04/2017 Vaginal dryness 11/26/2013 11/30/2014 Secondary hyperparathyroidism 08/02/2010 Diarrhea 04/12/2009 03/08/2016 Dysmetabolic syndrome X 07/10/2006 03/08/20 17 documented as of this encounter (statuses as of 11/25/2021) [address]16-2022 History of Past illness Narrative* Problem Noted Date Resolved Date Fall 06/22/2021 06/22/2021 DEMETRA (acute kidney injury) 08/18/20192019 Vitamin B 12 deficiency 08/18/2019 08/25/19 20 Hypercalcemia 03/13/2018 08/25/2019 Vitamin D deficiency 01/19/2014 07/04/2017 Vaginal dryness 11/26/2013 11/30/2014 Secondary hyperparathyroidism 08/02/2010 Diarrhea 04/12/2009 03/08/2016 Dysmetabolic syndrome X 07/10/2006 03/08/20 17 documented as of this encounter (statuses as of 12/06/2021) [address]16-2022 History of Past illness Narrative* Problem Noted Date Resolved Date Fall 06/22/2021 06/22/2021 DEMETRA (acute kidney injury) 08/18/20192019 Vitamin B 12 deficiency 08/18/2019 08/25/19 20 Hypercalcemia 03/13/2018 08/25/2019 Vitamin D deficiency 01/19/2014 07/04/2017 Vaginal dryness 11/26/2013 11/30/2014 Secondary hyperparathyroidism 08/02/2010 Diarrhea 04/12/2009 03/08/2016 Dysmetabolic syndrome X 07/10/2006 03/08/20 17 documented as of this encounter (statuses as of 12/23/2021) [address]16-2022 History of Past illness Narrative* Problem Noted Date Resolved Date Fall 06/22/2021 06/22/2021 DEMETRA (acute kidney injury) 08/18/20192019 Vitamin B 12 deficiency 08/18/2019 08/25/19 20 Hypercalcemia 03/13/2018 08/25/2019 Vitamin D deficiency 01/19/2014 07/04/2017 Vaginal dryness 11/26/2013 11/30/2014 Secondary hyperparathyroidism 08/02/2010 Diarrhea 04/12/2009 03/08/2016 Dysmetabolic syndrome X 07/10/2006 03/08/20 17 documented as of this encounter (statuses as of 01/09/2022) [address]16-2022 History of Past illness Narrative* Problem Noted Date Resolved Date Fall 06/22/2021 06/22/2021 DEMETRA (acute kidney injury) 08/18/20192019 Vitamin B 12 deficiency 08/18/2019 08/25/19 20 Hypercalcemia 03/13/2018 08/25/2019 Vitamin D deficiency 01/19/2014 07/04/2017 Vaginal dryness 11/26/2013 11/30/2014 Secondary hyperparathyroidism 08/02/2010 Diarrhea 04/12/2009 03/08/2016 Dysmetabolic syndrome X 07/10/2006 03/08/20 17 documented as of this encounter (statuses as of 03/01/2022) [address]16-2022 History of Past illness Narrative* Problem Noted Date Resolved Date Fall 06/22/2021 06/22/2021 DEMETRA (acute kidney injury) 08/18/20192019 Vitamin B 12 deficiency 08/18/2019 08/25/19 20 Hypercalcemia 03/13/2018 08/25/2019 Vitamin D deficiency 01/19/2014 07/04/2017 Vaginal dryness 11/26/2013 11/30/2014 Secondary hyperparathyroidism 08/02/2010 Diarrhea 04/12/2009 03/08/2016 Dysmetabolic syndrome X 07/10/2006 03/08/20 17 documented as of this encounter (statuses as of 05/03/2022) [address]16-2022 History of Past illness Narrative* Problem Noted Date Resolved Date Fall 06/22/2021 06/22/2021 DEMETRA (acute kidney injury) 08/18/20192019 Vitamin B 12 deficiency 08/18/2019 08/25/19 20 Hypercalcemia 03/13/2018 08/25/2019 Vitamin D deficiency 01/19/2014 07/04/2017 Vaginal dryness 11/26/2013 11/30/2014 Secondary hyperparathyroidism 08/02/2010 Diarrhea 04/12/2009 03/08/2016 Dysmetabolic syndrome X 07/10/2006 03/08/20 documented as of this encounter (statuses as of 08/17/2022) [facility] Narrative* Problem Noted Date Diagnosed Date Resolved Date Fall 06/22/2021 06/22/2021 DEMETRA (acute kidney injury) 08/18/2019 Vitamin B 12 deficiency 08/18/201908/07 Hypercalcemia 03/13/2018 08/25/2019 Vitamin D deficiency 01/19/2014 018 Vaginal dryness 11/26/2013 11/30/2014 Secondary hyperparathyroidism 08/02/2010 03/08/2017 Diarrhea 04/12/2009 03/08/2016 Dysmetabolic syndrome X 07/10/200602/09 documented as of this encounter (statuses as of 11/21/2022) [facility] Narrative* Problem Noted Date Diagnosed Date Resolved Date Fall 06/22/2021 06/22/2021 DEMETRA (acute kidney injury) 08/18/2019 Vitamin B 12 deficiency 08/18/201908/07 Hypercalcemia 03/13/2018 08/25/2019 Vitamin D deficiency 01/19/2014 018 Vaginal dryness 11/26/2013 11/30/2014 Secondary hyperparathyroidism 08/02/2010 03/08/2017 Diarrhea 04/12/2009 03/08/2016 Dysmetabolic syndrome X 07/10/200602/09 documented as of this encounter (statuses as of 11/23/2022) [address]16-2022 History of Past illness Narrative* Problem Noted Date Diagnosed Date Resolved Date Fall 06/22/2021 06/22/2021 DEMETRA (acute kidney injury) 08/18/2019 Vitamin B 12 deficiency 08/18/201908/07 Hypercalcemia 03/13/2018 08/25/2019 Vitamin D deficiency 01/19/2014 018 Vaginal dryness 11/26/2013 11/30/2014 Secondary hyperparathyroidism 08/02/2010 03/08/2017 Diarrhea 04/12/2009 03/08/2016 Dysmetabolic syndrome X 07/10/200602/09 documented as of this encounter (statuses as of 12/08/2022) [facility] Narrative* Problem Noted Date Diagnosed Date Resolved Date Fall 06/22/2021 06/22/2021 DEMETRA (acute kidney injury) 08/18/2019 Vitamin B 12 deficiency 08/18/201908/07 Hypercalcemia 03/13/2018 08/25/2019 Vitamin D deficiency 01/19/2014 018 Vaginal dryness 11/26/2013 11/30/2014 Secondary hyperparathyroidism 08/02/2010 03/08/2017 Diarrhea 04/12/2009 03/08/2016 Dysmetabolic syndrome X 07/10/200602/09 documented as of this encounter (statuses as of 12/10/2022) [facility] Narrative* Problem Noted Date Diagnosed Date Resolved Date Fall 06/22/2021 06/22/2021 DEMETRA (acute kidney injury) 08/18/2019 Vitamin B 12 deficiency 08/18/201908/07 Hypercalcemia 03/13/2018 08/25/2019 Vaginal dryness 11/26/2013 11/30/2014 Secondary hyperparathyroidism 08/02/2010 03/08/2017 Diarrhea 04/12/2009 03/08/2016 Dysmetabolic syndrome X 07/10/200602/09 documented as of this encounter (statuses as of 02/26/2023) [address]16-2022 History of Past illness Narrative* Problem Noted Date Diagnosed Date Resolved Date Fall 06/22/2021 06/22/2021 DEMETRA (acute kidney injury) 08/18/2019 Vitamin B 12 deficiency 08/18/201908/07 Hypercalcemia 03/13/2018 08/25/2019 Vaginal dryness 11/26/2013 11/30/2014 Secondary hyperparathyroidism 08/02/2010 03/08/2017 Diarrhea 04/12/2009 03/08/2016 Dysmetabolic syndrome X 07/10/200602/09 documented as of this encounter (statuses as of 02/28/2023) [address]16-2022 History of Past illness Narrative* Problem Noted Date Diagnosed Date Resolved Date Fall 06/22/2021 06/22/2021 DEMETRA (acute kidney injury) 08/18/2019 Vitamin B 12 deficiency 08/18/201908/07 Hypercalcemia 03/13/2018 08/25/2019 Vaginal dryness 11/26/2013 11/30/2014 Secondary hyperparathyroidism 08/02/2010 03/08/2017 Diarrhea 04/12/2009 03/08/2016 Dysmetabolic syndrome X 07/10/200602/09 documented as of this encounter (statuses as of 03/09/2023) [address]16-2022 History of Past illness Narrative* Problem Noted Date Diagnosed Date Resolved Date Fall 06/22/2021 06/22/2021 DEMETRA (acute kidney injury) 08/18/2019 Vitamin B 12 deficiency 08/18/201908/07 Hypercalcemia 03/13/2018 08/25/2019 Vaginal dryness 11/26/2013 11/30/2014 Secondary hyperparathyroidism 08/02/2010 03/08/2017 Diarrhea 04/12/2009 03/08/2016 Dysmetabolic syndrome X 07/10/200602/09 documented as of this encounter (statuses as of 06/08/2023) [address]16-2022 History of Past illness Narrative* Problem Noted Date Diagnosed Date Resolved Date Fall 06/22/2021 06/22/2021 DEMETRA (acute kidney injury) 08/18/2019 Vitamin B 12 deficiency 08/18/201908/07 Hypercalcemia 03/13/2018 08/25/2019 Vaginal dryness 11/26/2013 11/30/2014 Secondary hyperparathyroidism 08/02/2010 03/08/2017 Diarrhea 04/12/2009 03/08/2016 Dysmetabolic syndrome X 07/10/200602/09 documented as of this encounter (statuses as of 06/11/2023) [address]16-2022 History of Past illness Narrative* Problem Noted Date Diagnosed Date Resolved Date Fall 06/22/2021 06/22/2021 DEMETRA (acute kidney injury) 08/18/2019 Vitamin B 12 deficiency 08/18/201908/07 Hypercalcemia 03/13/2018 08/25/2019 Vaginal dryness 11/26/2013 11/30/2014 Secondary hyperparathyroidism 08/02/2010 03/08/2017 Diarrhea 04/12/2009 03/08/2016 Dysmetabolic syndrome X 07/10/200602/09 documented as of this encounter (statuses as of 06/12/2023) [address]16-2022 History of Past illness Narrative* Problem Noted Date Diagnosed Date Resolved Date Fall 06/22/2021 06/22/2021 DEMETRA (acute kidney injury) 08/18/2019 Vitamin B 12 deficiency 08/18/201908/07 Hypercalcemia 03/13/2018 08/25/2019 Vaginal dryness 11/26/2013 11/30/2014 Secondary hyperparathyroidism 08/02/2010 03/08/2017 Diarrhea 04/12/2009 03/08/2016 Dysmetabolic syndrome X 07/10/200602/09 documented as of this encounter (statuses as of 06/22/2023) [address]16-2022 History of Past illness Narrative* Problem Noted Date Diagnosed Date Resolved Date Fall 06/22/2021 06/22/2021 DEMETRA (acute kidney injury) 08/18/2019 Vitamin B 12 deficiency 08/18/201908/07 Hypercalcemia 03/13/2018 08/25/2019 Vaginal dryness 11/26/2013 11/30/2014 Secondary hyperparathyroidism 08/02/2010 03/08/2017 Diarrhea 04/12/2009 03/08/2016 Dysmetabolic syndrome X 07/10/200602/09 documented as of this encounter (statuses as of 06/27/2023) [address]16-2022 History of Past illness Narrative* Problem Noted Date Diagnosed Date Resolved Date Fall 06/22/2021 06/22/2021 DEMETRA (acute kidney injury) 08/18/2019 Vitamin B 12 deficiency 08/18/201908/07 Hypercalcemia 03/13/2018 08/25/2019 Vaginal dryness 11/26/2013 11/30/2014 Secondary hyperparathyroidism 08/02/2010 03/08/2017 Diarrhea 04/12/2009 03/08/2016 Dysmetabolic syndrome X 07/10/200602/09 documented as of this encounter (statuses as of 06/28/2023) [address]16-2022 History of Past illness Narrative* Problem Noted Date Diagnosed Date Resolved Date Fall 06/22/2021 06/22/2021 DEMETRA (acute kidney injury) 08/18/2019 Vitamin B 12 deficiency 08/18/201908/07 Hypercalcemia 03/13/2018 08/25/2019 Vaginal dryness 11/26/2013 11/30/2014 Secondary hyperparathyroidism 08/02/2010 03/08/2017 Diarrhea 04/12/2009 03/08/2016 Dysmetabolic syndrome X 07/10/200602/09 documented as of this encounter (statuses as of 07/16/2023) [address]16-2022 History of Past illness Narrative* Problem Noted Date Diagnosed Date Resolved Date Fall 06/22/2021 06/22/2021 DEMETRA (acute kidney injury) 08/18/2019 Vitamin B 12 deficiency 08/18/201908/07 Hypercalcemia 03/13/2018 08/25/2019 Vaginal dryness 11/26/2013 11/30/2014 Secondary hyperparathyroidism 08/02/2010 03/08/2017 Diarrhea 04/12/2009 03/08/2016 Dysmetabolic syndrome X 07/10/200602/09 documented as of this encounter (statuses as of 07/18/2023) [facility]03-16-2022 History of Past illness Narrative* Problem Noted Date Diagnosed Date Resolved Date Fall 06/22/2021 06/22/2021 DEMETRA (acute kidney injury) 08/18/2019 Vitamin B 12 deficiency 08/18/201908/07 Hypercalcemia 03/13/2018 08/25/2019 Vaginal dryness 11/26/2013 11/30/2014 Secondary hyperparathyroidism 08/02/2010 03/08/2017 Diarrhea 04/12/2009 03/08/2016 Dysmetabolic syndrome X 07/10/200602/09 documented as of this encounter (statuses as of 07/27/2023) [address]16-[address]22 NoteHNO ID: [id number] Author: Indira Villaseñor PA-C Service: Neurosurgery Author Type: Physician Zipper Setter Chainstitch Type: Progress Notes Filed: 06/22/2021 9:51 AM Note Text: Neurosurgery Progress Note SERVICE DATE: 06/22/2021 SUBJECTIVE: NAEON. Patient seen and examined at bedside. at bedside. Patient states she is feeling much better today. Patient states she has mild pain in the right paraspinal muscles. She is wearing [place] collar. Denies issues with bowel or bladder function. Denies radicular pain, weakness, or new numbness tingling. Numbness located in left index finger and left great toe. OBJECTIVE: Vitals: Temp (24hrs), Av.7 ?C (98 ?F), Min:36.4 ?C (97.5 ?F), Max:37 ?C (98.6 ?F) BP 169/93 Pulse 99 Temp 36.6 ?C (97.9 ?F) (Oral) Resp 16 Ht 163.8 cm (5' 4.5) Wt 52.7 kg (116 lb 2.9 oz) SpO2 98% BMI 19.63 kg/m? O2 Therapy: Room Air IANDO: Date 06/21/21 07 - 06/22/21 0659 06/22/21 07 - 06/23/21 0659 Shift 5456-5984 2835-1973 9752-3724 24 Hour Total 7516-9319 5874-8583 9080-3225 24 Hour Total INTAKE PO 200 360 560 PO 200 360 560 Shift Total 200 360 560 OUTPUT Urine 800 1500 2300 Output ( External Collection Device 06/20/214) 800 1500 2300 Shift Total 800 1500 2300 Weight (kg) 52.7 52.7 52.7 52.7 52.7 52.7 52.7 52.7 Medications: Current Facility-Administered Medications Medication Dose Route Frequency - amLODIPine 2.5 mg tab(s) (NORVASC) 2.5 mg ORAL DAILY - senna-docusate 8.6-50 mg 1 tablet (SENNA-S) 1 tablet ORAL BID - NaCl 0.9% iv flush bag 20 mL INTRAVENOUS PRN - levothyroxine 25 mcg tab(s) (SYNTHROID) 25 mcg ORAL BEFORE BREAKFAST DAILY - sodium chloride 0.9 % (flush) 3-5 mL (BD POSIFLUSH) 3-5 mL INTRAVENOUS q 12 H - ondansetron 4 mg tab(s) (ZOFRAN) 4 mg ORAL q 6 H PRN Or - ondansetron (PF) 4 mg injection (ZOFRAN) 4 mg INTRAVENOUS q 6 H PRN - acetaminophen 975 mg tab(s) (TYLENOL) 975 mg ORAL QID - oxyCODONE IR 5 mg tab(s) (ROXICODONE) 5 mg ORAL q 4 H PRN Labs: Recent Labs 06/22/21 0340 06/21/21 0411 06/20/21 2136 NA 139 140 136 K 3.7 4.0 4.1 CHLOR 105 104 101 CO2 25 24 24 BUN 10 12 14 CREAT 0.62 0.66 0.73 GLUC 106* 118* 115* ANION 9 12 11 CA 8.9 8.6 9.6 ALB -- -- 4.2 AST -- -- 58* ALT -- -- 28 ALKPHOS -- -- 86 TBILI -- -- 0.2 WBC 9.62 10.36 12.48* HB 13.1 13.2 14.1 HCT 40.2 40.9 43.7 PLT 211 208 217 Imaging: MRI performed on 06/21/20 at 4:41pm IMPRESSION: Acute left C6-C7 facet joint fracture. Nuchal ligament and right paraspinous muscle injury. 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 ?Normal cord signal. Severe foraminal stenosis at left C5-6 and C6-7. CT cervical spine performed 06/20/21 at 11:15 pm IMPRESSION: Minimal caliber change and luminal wall irregularity of the left C6 and C7 extracranial first segment vertebral artery which could reflect either some degree of vasospasm versus minimal grade 1 arterial injury. This can be further evaluated with follow-up CTA if determined clinically warranted. Otherwise, no evidence of acute arterial injury on CTA neck. Comminuted left C6 and C7 facet fractures with some degree of slight subluxation without overt perching or non articulation. Finding is concerning for some degree of possible ligamentous injury and can be conclusively evaluated with MRI if determined clinically warranted. Nondisplaced left C7 transverse process fracture. Some degree of minimal C6 superior endplate vertebral body irregularity which cannot be conclusively evaluated given extent of respiratory motion. This could also be further evaluated for acute edema/fracture with MRI if clinically warranted. ? Exam: GENERAL: No distress, Alert, pleasant mood NEURO: oriented x 3, makes eye contact, speech is clear and fluent, hard of hearing. Strength is 5/5 in BUE and BLE. No sensory deficits. HEENT: face symmetric, normocephalic, atraumatic NECK/BACK: wearing aspen collar LUNGS: Unlabored breathing CARDIAC: Regular rate and rhythm as above EXTREMITIES: MANRIQUE, No deformities, No edema PSYCH: appropriate conversation, pleasant mood, normal affect ASSESSMENT AND PLAN: Active Hospital Problems Diagnosis Date Noted - Cervical spine fracture (HCC) 06/20/2021 Fiona Gruber is a 81 year old female who presented to [facility] 06/20 following a GLF in her kitchen. She hit her head on a lazy luanne but did not have LOC. On imaging she was found to have a left C6 and left C7 facet fractures, C7 transverse process fracture. - neuro stable - cervical collar on at all times - no urgent or emergent neurosurgical intervention is required at this time - ok for normal diet from NS standpoint - PT/OT can mobilize patient as tolerated - discussed with Dr Amador, patient will follow-up as outpatient with repeat imaging - will continue to follow pending cervical xrays - pain is well controlled Portions of text from this note were copied. All releva (more content not included)...[facility]03-16-2022 NoteHNO ID: [id number] Author: Renetta Hernandez APRN.MARCELA Service: General Surgery Author Type: Nurse Practitioner Type: Progress Notes Filed: 06/22/2021 9:57 AM Note Text: Trauma Surgery Progress Note SERVICE DATE: 06/22/2021 Trauma Service Pager: For questions or concerns Mon-Fri 6a-5p please page [phone]. After 5pm and on Weekends and Holidays, please page [phone] if in ICU or [phone] if on RNF. SUBJECTIVE: NAEON. Patient reports tingling to left index finger and generalized soreness. Otherwise has no complaints, is hoping to be able to ambulate today. Tolerating diet. Denies headache, dizziness, chest pain, SOB, n/v. OBJECTIVE: Vitals: Temp (24hrs), Av.7 ?C (98 ?F), Min:36.4 ?C (97.5 ?F), Max:37 ?C (98.6 ?F) BP 169/93 Pulse 99 Temp 36.6 ?C (97.9 ?F) (Oral) Resp 16 Ht 163.8 cm (5' 4.5) Wt 52.7 kg (116 lb 2.9 oz) SpO2 98% BMI 19.63 kg/m? O2 Therapy: Room Air IANDO: Date 06/21/21 07 - 06/22/21 0659 06/22/21699 - 06/23/21 0659 Shift 9848-5018 5765-5675 6400-7820 24 Hour Total 0067-6747 6693-2336 4814-0761 24 Hour Total INTAKE PO 200 360 560 PO 200 360 560 Shift Total 200 360 560 OUTPUT Urine 800 1500 2300 Output ( External Collection Device 06/20/214) 800 1500 2300 Shift Total 800 1500 2300 Weight (kg) 52.7 52.7 52.7 52.7 52.7 52.7 52.7 52.7 MEDICATIONS: Current Facility-Administered Medications Medication Dose Route Frequency - amLODIPine 2.5 mg tab(s) (NORVASC) 2.5 mg ORAL DAILY - senna-docusate 8.6-50 mg 1 tablet (SENNA-S) 1 tablet ORAL BID - enoxaparin 30 mg injection (LOVENOX) 30 mg SUBCUTANEOUS q 12 HR - NaCl 0.9% iv flush bag 20 mL INTRAVENOUS PRN - levothyroxine 25 mcg tab(s) (SYNTHROID) 25 mcg ORAL BEFORE BREAKFAST DAILY - sodium chloride 0.9 % (flush) 3-5 mL (BD POSIFLUSH) 3-5 mL INTRAVENOUS q 12 H - ondansetron 4 mg tab(s) (ZOFRAN) 4 mg ORAL q 6 H PRN Or - ondansetron (PF) 4 mg injection (ZOFRAN) 4 mg INTRAVENOUS q 6 H PRN - acetaminophen 975 mg tab(s) (TYLENOL) 975 mg ORAL QID - oxyCODONE IR 5 mg tab(s) (ROXICODONE) 5 mg ORAL q 4 H PRN Labs: Recent Labs 06/22/21 0340 06/21/21 0411 06/20/21 2136 NA 139 140 136 K 3.7 4.0 4.1 CHLOR 105 104 101 CO2 25 24 24 BUN 10 12 14 CREAT 0.62 0.66 0.73 GLUC 106* 118* 115* ANION 9 12 11 CA 8.9 8.6 9.6 ALB -- -- 4.2 AST -- -- 58* ALT -- -- 28 ALKPHOS -- -- 86 TBILI -- -- 0.2 WBC 9.62 10.36 12.48* HB 13.1 13.2 14.1 HCT 40.2 40.9 43.7 PLT 211 208 217 PHYSICAL EXAM: Genl: Appears age appropriate. No acute distress. Resting comfortably. Head/Face: Normocephalic. Atraumatic. Eyes: EOMI. Sclera not icteric, not injected Neck: [place] collar in place. Resp: Lung sounds are clear bilat. No wheezes. No rales. Breathing is non-labored on RA @99%. CVS: RRR as above; 2+ pulses at RA, DP, PT bilat. GI: Abdomen is soft, non-tender, not distended. Bowel sounds normoactive. No peritonitis. MSK: Extremities without clubbing, cyanosis, edema. Normal ROM x 4. Skin: Warm and dry. Not jaundiced. Neuro: AANDOx3. Strength and sensation normal. MANRIQUE. GCS15. Psych: Normal mood. Normal affect. Appropriate insight into current situation. ASSESSMENT AND PLAN: Active Hospital Problems Diagnosis Date Noted - Closed nondisplaced fracture of sixth cervical vertebra (HCC) 06/22/2021 - Closed nondisplaced fracture of seventh cervical vertebra (HCC) 06/22/2021 - Closed fracture of transverse process of cervical vertebra (HCC) 06/22/2021 - Fall 06/22/2021 81 year old female s/p GLF Imaging performed: 1. CT NCAP, CTA HN (06/20) 2. MRI c-spine, XR R shoulder (06/21) Traumatic Injuries: 1. Comminuted left C6 and C7 facet fractures 2. Nondisplaced left C7 TP fracture 3. Right supraclavicular fat stranding/soft tissue hematoma without associated fracture or arterial injury 4. Minimal caliber change and luminal wall irregularity of the left C6 and C7 extracranial first segment vertebral artery which could reflect either some degree of vasospasm versus minimal grade 1 arterial injury. Operations/Procedures: 1. None Care Plan: 1. C6-7 fxs 1. NSGY following 2. Maintain aspen collar ([place] ordered) 3. MRI showing ligament injury 4. Upright XR pending 5. OK to mobilize 6. SALES ASSISTANT consult 2. Possible left vertebral artery injury 1. Will discuss on rounds today, possible ASA 81mg daily on discharge 3. Current diet order: DIET REGULAR 4. Pain regimen: Scheduled tylenol; prn oxy 5. Bowel regimen: Senna-s 6. Labs: As above PPX: 1. DVT: Lovenox, SCDs, mobilize 2. Ulcer: n/a 3. Vit D level if > 65 yo: WNL Consulted Services: 1. Neurosurgery 2. SALES ASSISTANT Dispo Plannin. PT/OT recs pending. Case management following. Incidentals: 1. None Follow Up Needs: 1. NSGY - Dr. Amador Staff Trauma Surgeon: Dr. Nicholson SIGNATURE: Renetta Hernandez APRN.CNP PATIENT NAME: Fiona Gruber DATE: 06/22/2021 TIME: 9:13 AM Pager: see below Tr (more content not included)...[facility]03-15-2022 NoteHNO ID: [id number] Author: Indira Villaseñor PA-C Service: Neurosurgery Author Type: Physician Zipper Setter Chainstitch Type: Progress Notes Filed: 06/21/2021 3:25 PM Note Text: Neurosurgery Progress Note SERVICE DATE: 06/21/2021 SUBJECTIVE: Patient was seen and examined at bedside. She is resting in bed with [place] collar on. at bedside. She admits she does have moderate pain 5/10 in the midline cervical region. She admits to numbness/tingling in the left index finger and thumb as well as left great toe. She denies radicular pain into the extremities. She does have pain with shoulder abduction. She denies weakness in the extremities. OBJECTIVE: Vitals: Temp (24hrs), Av.7 ?C (98.1 ?F), Min:36.5 ?C (97.7 ?F), Max:36.9 ?C (98.4 ?F) BP 144/67 Pulse 66 Temp 36.5 ?C (97.7 ?F) (Oral) Resp 16 Ht 163.8 cm (5' 4.5) Wt 52.7 kg (116 lb 2.9 oz) SpO2 98% BMI 19.63 kg/m? O2 Therapy: Room Air IANDO: Medications: Current Facility-Administered Medications Medication Dose Route Frequency - iv contrast (radiology procedure) INTRAVENOUS DIRECTED PRN - NaCl 0.9% iv flush bag 20 mL INTRAVENOUS PRN - iv contrast (radiology procedure) INTRAVENOUS DIRECTED PRN - iv contrast (radiology procedure) INTRAVENOUS DIRECTED PRN - levothyroxine 25 mcg tab(s) (SYNTHROID) 25 mcg ORAL BEFORE BREAKFAST DAILY - sodium chloride 0.9 % (flush) 3-5 mL (BD POSIFLUSH) 3-5 mL INTRAVENOUS q 12 H - lactated ringers iv infusion 75 mL/hr INTRAVENOUS CONTINUOUS - ondansetron 4 mg tab(s) (ZOFRAN) 4 mg ORAL q 6 H PRN Or - ondansetron (PF) 4 mg injection (ZOFRAN) 4 mg INTRAVENOUS q 6 H PRN - acetaminophen 975 mg tab(s) (TYLENOL) 975 mg ORAL QID - oxyCODONE IR 5 mg tab(s) (ROXICODONE) 5 mg ORAL q 4 H PRN Labs: Recent Labs 06/21/21 0411 06/20/21 2136 NA 140 136 K 4.0 4.1 CHLOR 104 101 CO2 24 24 BUN 12 14 CREAT 0.66 0.73 GLUC 118* 115* ANION 12 11 CA 8.6 9.6 ALB -- 4.2 AST -- 58* ALT -- 28 ALKPHOS -- 86 TBILI -- 0.2 WBC 10.36 12.48* HB 13.2 14.1 HCT 40.9 43.7 PLT 208 217 Imaging: CT cervical spine performed 06/20/21 at 11:15 pm IMPRESSION: Minimal caliber change and luminal wall irregularity of the left C6 and C7 extracranial first segment vertebral artery which could reflect either some degree of vasospasm versus minimal grade 1 arterial injury. This can be further evaluated with follow-up CTA if determined clinically warranted. Otherwise, no evidence of acute arterial injury on CTA neck. Comminuted left C6 and C7 facet fractures with some degree of slight subluxation without overt perching or non articulation. Finding is concerning for some degree of possible ligamentous injury and can be conclusively evaluated with MRI if determined clinically warranted. Nondisplaced left C7 transverse process fracture. Some degree of minimal C6 superior endplate vertebral body irregularity which cannot be conclusively evaluated given extent of respiratory motion. This could also be further evaluated for acute edema/fracture with MRI if clinically warranted. Exam: GENERAL: No distress, Alert, pleasant mood NEURO: CN II: Visual hill intact CN III, IV, : Extraocular movements intact bilaterally. PERRL bilaterally CN V: Facial sensation is normal bilaterally CN VII: Face is symmetric, no weakness CN VIII: Hearing is decreased b/l CN IX, X: Palate elevates symmetrically CN XI: Shoulder shrug strength is normal. CN XII: Tongue midline without atrophy or fasciculations. Motor: normal muscle tone, no tremor or spasticity, no pronator drift RUE LUE D 4/5 D 5/5 B 5/5 B 5/5 T 5/5 T 5/5 G 5/5 G 5/5 RLE LLE HF 5/5 HF 5/5 KE 5/5 KE 5/5 KF 5/5 KF 5/5 DF 5/5 DF 5/5 PF 5/5 PF 5/5 Sensory: normal sensation to touch in the UE and LE HEENT: normocephalic, atraumatic LUNGS: Unlabored breathing CARDIAC: Regular rate and rhythm as above EXTREMITIES: MANRIQUE, No deformities, No edema SKIN: Skin color, texture, turgor normal, No rashes or lesions PSYCH: appropriate conversation, mood, and affect ASSESSMENT AND PLAN: Active Hospital Problems Diagnosis Date Noted - Cervical spine fracture (HCC) 06/20/2021 Fiona Gruber is a 81 year old female who presented to [facility] yesterday following a GLF. On imaging she was found to have a left C6 and left C7 facet fractures, C7 transverse process fracture. - cervical collar on at all times, Cherri Trammell ordered and pending - cervical MRI pending - pain control per trauma - ok for diet today from NS perspective - discussed with Dr Amador, will manage conservatively at this time Portions of text from this note were copied. All relevant information was reviewed and updated accordingly on 06/21/2021 SIGNATURE: Indira Villaseñor PA-C PATIENT NAME: Fiona Gruber DATE: June 21, 2021 TIME: 12:46 PM Pager: [phone] NoteHNO ID: [id number] Author: Eli Nicholson MD Service: General Surgery Author Type: Physician Type: Progress Notes Filed: 06/21/2021 12:47 PM Note Text: Summary: Trauma Surgery Progress Note SERVICE DATE: 06/21/2021 Trauma Service Pager: For questions or concerns Mon-Fri 6a-5p please page [phone]. After 5pm and on Weekends and Holidays, please page [phone] if in ICU or [phone] if on RNF. SUBJECTIVE: Pain improved this morning. Denies nausea/vomiting, sob/chest pain. Denies sensory/motor deficits this morning. C-collar in place. OBJECTIVE: Vitals: Temp (24hrs), Av.7 ?C (98.1 ?F), Min:36.5 ?C (97.7 ?F), Max:36.9 ?C (98.4 ?F) BP 154/77 Pulse 70 Temp 36.9 ?C (98.4 ?F) (Oral) Resp 16 Ht 163.8 cm (5' 4.5) Wt 52.7 kg (116 lb 2.9 oz) SpO2 98% BMI 19.63 kg/m? O2 Therapy: Room Air IANDO: MEDICATIONS: Current Facility-Administered Medications Medication Dose Route Frequency - iv contrast (radiology procedure) INTRAVENOUS DIRECTED PRN - NaCl 0.9% iv flush bag 20 mL INTRAVENOUS PRN - iv contrast (radiology procedure) INTRAVENOUS DIRECTED PRN - iv contrast (radiology procedure) INTRAVENOUS DIRECTED PRN - levothyroxine 25 mcg tab(s) (SYNTHROID) 25 mcg ORAL BEFORE BREAKFAST DAILY - sodium chloride 0.9 % (flush) 3-5 mL (BD POSIFLUSH) 3-5 mL INTRAVENOUS q 12 H - lactated ringers iv infusion 75 mL/hr INTRAVENOUS CONTINUOUS - ondansetron 4 mg tab(s) (ZOFRAN) 4 mg ORAL q 6 H PRN Or - ondansetron (PF) 4 mg injection (ZOFRAN) 4 mg INTRAVENOUS q 6 H PRN - acetaminophen 975 mg tab(s) (TYLENOL) 975 mg ORAL QID - oxyCODONE IR 5 mg tab(s) (ROXICODONE) 5 mg ORAL q 4 H PRN Labs: Recent Labs 06/21/21 0411 06/20/21 2136 NA 140 136 K 4.0 4.1 CHLOR 104 101 CO2 24 24 BUN 12 14 CREAT 0.66 0.73 GLUC 118* 115* ANION 12 11 CA 8.6 9.6 ALB -- 4.2 AST -- 58* ALT -- 28 ALKPHOS -- 86 TBILI -- 0.2 WBC 10.36 12.48* HB 13.2 14.1 HCT 40.9 43.7 PLT 208 217 Exam: General: Alert and oriented x 3. No acute distress. HEENT: c-collar in place. CV: Regular rate Respiratory: Unlabored breathing on RA, equal chest rise bilaterally. Abdomen: Soft, nondistended, NTP, no rebound, guarding. Neuro: AANDOx3, CNII-XII grossly intact, sensorimotor function grossly intact. Heme: No bleeding, no ecchymoses Skin: Skin warm and dry. MSK: AROM grossly wnl in all four extremities. ASSESSMENT AND PLAN: Active Hospital Problems Diagnosis Date Noted - Cervical spine fracture (HCC) 06/20/2021 81 year old female s/p GLF on 06/20/2021 ? Imaging performed: 1. CTA Neck, CT NCAP (06/21) ? Traumatic Injuries: - Comminuted left C6 and C7 facet fractures with some degree of slight subluxation without overt perching or non articulation - Non-displaced Left C7 Transverse Process Fx - Right supraclavicular fat stranding/soft tissue hematoma without associated fracture or arterial injury ? Operations/Procedures: 1. None ? Care Plan: 1. C6/C7 Comminuted fx, C7 transverse Fx 1. Spine consult 2. MRI pending this morning. 3. C-Collar at all times, Spine Precautions 4. Hold DVT PPX 1. Current diet order: DIET NPO 3. Pain regimen: Tylenol Stephanie, PRN Oxycodone 4. Bowel regimen: None 5. Labs: CBC, BMP ? PPX: 1. DVT: Holding LVX, SCD 2. Ulcer: None 3. Vit D level if > 65 yo: Pending ? Consulted Services: 1. Spine 2. Trauma ? Dispo Plannin. PT/OT recs Pending. Case management following. ? Incidentals: 1. None ? Follow Up Needs: 1. TBD ? Staff Trauma Surgeon: Dr. Nicholson. SIGNATURE: Kerwin Newman DO PATIENT NAME: Fiona Gruber DATE: 06/21/2021 TIME: 8:43 AM Pager: see below Trauma Service Pager: For questions or concerns Mon-Fri 6a-5p please page [phone]. After 5pm and on Weekends and Holidays, please page [phone] if in ICU or [phone] if on RNF. Trauma Staff Addendum: I have seen and examined this patient with the Trauma Surgery resident team, and I agree with the assessment and plan of care documented in the electronic medical record with the following comments. I have reviewed the necessary labs and imaging. Tertiary trauma survey completed on rounds this AM, no occult injury detected. Neck pain controlled No distal neurol deficits No hypotension or hypoxia. No arrhythmias. No CHINCHILLA, blurred vision, or tinnitus. No dysphonia/dysphagia or dysarthria. No epistaxis or otorrhea. No SOB or chest pain. No abdominal pain, hematemesis, hematochezia, hematuria, abdominal distension, or nausea/vomiting. No new onset extremity pain. On examination: no cephalohematoma, scleral injection, or subconjunctival hemorrhage. Midface stable. Cervical collar in place. Lungs clear to auscultation bilaterally. No flail segment or crepitus. CV reg (more content not included)...[id number] History of Present illness Narrative* Elva Reed RT(R) - 05/16/2021 4:40 PM EST Radiology Service Progress Note PATIENT NAME: Fiona Gruber DATE OF SERVICE: May 16, 2021 TIME: 5:49 PM PATIENT IDENTITY VERIFICATION COMPLETED USING TWO (2) IDENTIFIERS: Name and Date of confirmedby patient verbally. FALL SCREENING: Has the patient had 2 falls in the last year or 1 fall with injury or currently using an Ambulatory Assistive Device (Walker, Cane, Wheelchair, Crutches, etc.)? No PATIENT GENDER DATA: Female. status: : No status: NO. PATIENT RELEVANT IMPLANT DATA REVIEWED: Yes RADIOLOGY DEPARTMENT: MR; Exam(s) Completed: Head: Routine Brain PERIPHERAL IV DATA: Not applicable SIGNED BY: RT Sergio(R) May 16, 2021 5:49 PM [facility] of Past illness Narrative* Problem Noted Date Diagnosed Date Resolved Date DEMETRA (acute kidney injury) 08/18/2019 Vitamin B 12 deficiency 08/18/201908/07 Hypercalcemia 03/13/2018 08/25/2019 Vaginal dryness 11/26/2013 11/30/2014 Secondary hyperparathyroidism 08/02/2010 03/08/2017 Diarrhea 04/12/2009 03/08/2016 Dysmetabolic syndrome X 07/10/200602/09 documented as of this encounter (statuses as of 02/11/2023) [facility] [place] [facility] Diagnosis Elevated troponin- Primary Other abnormal blood chemistry Arthritis of right acromioclavicular joint Unspecified arthropathy, shoulder region Arthritis of glenohumeral joint Essential hypertension Unspecified essential hypertension Hypothyroidism, acquired Unspecified hypothyroidism Dementia without behavioral disturbance, unspecified dementia type (HCC) [facility] [place] [facility]* Diagnosis Closed traumatic nondisplaced fracture of sixth cervical vertebra with delayed healing- Primary [facility] [place] [facility]* Diagnosis Closed nondisplaced fracture of sixth cervical vertebra with delayed healing, unspecified fracture morphology, subsequent encounter- Primary documented in this encounter [facility] note* Diagnosis Closed nondisplaced fracture of seventh cervical vertebra, unspecified fracture morphology, initial encounter ([facility]) documented in this encounter [facility] note* Diagnosis Closed nondisplaced fracture of sixth cervical vertebra with delayed healing, unspecified fracture morphology, subsequent encounter- Primary documented in this encounter [facility] note* Diagnosis S/P neck surgery, follow-up exam- Primary Follow-up examination, following other surgery Bedbound H/O neck surgery Personal history of surgery to other organs Impairment of mobility associated with impaired vision documented in this encounter [facility] note* Diagnosis Closed nondisplaced fracture of sixth cervical vertebra with delayed healing, unspecified fracture morphology, subsequent encounter- Primary documented in this encounter [facility] note* Diagnosis Closed nondisplaced fracture of sixth cervical vertebra with delayed healing, unspecified fracture morphology, subsequent encounter- Primary documented in this encounter [facility] note* Diagnosis Hypothyroidism, acquired Unspecified hypothyroidism documented in this encounter [facility] note* Diagnosis CKD (chronic kidney disease) stage 1, GFR 90 ml/min or greater- Primary Chronic kidney disease, Stage I documented in this encounter [facility] note* Diagnosis Hypothyroidism, acquired- Primary Unspecified hypothyroidism H/O neck surgery Personal history of surgery to other organs Numbness of left hand Memory deficits Memory loss Essential hypertension Unspecified essential hypertension B-complex deficiency Unspecified vitamin B deficiency Anemia, unspecified type documented in this encounter [facility] note* Diagnosis Memory deficits- Primary Memory loss Deficiency of multiple nutrient elements Other nutritional deficiency B12 deficiency Other B-complex deficiencies Essential fatty acid (EFA) deficiency Other nutritional deficiency documented in this encounter [facility] note* Diagnosis Urinary tract infection without hematuria, site unspecified- Primary Cerebral amyloid angiopathy (CODE) Dementia without behavioral disturbance, unspecified dementia type documented in this encounter [facility] note* Diagnosis Deficiency of multiple nutrient elements- Primary Other nutritional deficiency Jaret albicans infection Candidiasis of unspecified site documented in this encounter [facility] noteNo assessment information availableWSumma [facility] Work Phone: Evaluation note* Diagnosis Hypothyroidism, acquired- Primary Unspecified hypothyroidism Osteopenia of multiple sites Hyperlipidemia, unspecified hyperlipidemia type Urinary tract infection without hematuria, site unspecified Stage 3a chronic kidney disease (HCC) Dementia without behavioral disturbance (HCC) Dementia, unspecified, without behavioral disturbance [facility] Diagnosis Mixed hyperlipidemia- Primary Hypothyroidism, acquired Unspecified hypothyroidism Dementia without behavioral disturbance (HCC) Dementia, unspecified, without behavioral disturbance Cerebral amyloid angiopathy (CODE) At risk for falls Personal history of fall Heat intolerance Unspecified effects of heat and light High vitamin D level Hypervitaminosis D Magnesium deficiency Disorders of magnesium metabolism [facility] [place] [facility]* Diagnosis Urinary frequency- Primary [facility] Diagnosis Mixed hyperlipidemia- Primary Vitamin D insufficiency Unspecified vitamin D deficiency History of hypercalcemia Personal history of other endocrine, metabolic, and immunity disorders Age-related osteoporosis without current pathological fracture Senile osteoporosis [facility] Diagnosis Hyperlipidemia, unspecified hyperlipidemia type [facility] [place] [facility]* Diagnosis Hyperlipidemia, unspecified hyperlipidemia type [facility] Diagnosis Age-related osteoporosis without current pathological fracture- Primary Senile osteoporosis [facility] Age-related osteoporosis without current pathological fracture- Primary Senile osteoporosis [facility] Diagnosis Essential hypertension- Primary Unspecified essential hypertension Osteopenia of multiple sites Hypothyroidism, acquired Unspecified hypothyroidism [facility] Diagnosis Osteopenia of multiple sites- Primary [facility] Diagnosis Memory change- Primary Memory loss Balance disorder Other symptoms involving nervous and musculoskeletal systems Tremor Abnormal involuntary movements Chest pain, unspecified type Hypothyroidism, acquired Unspecified hypothyroidism Age-related osteoporosis without current pathological fracture Senile osteoporosis [facility] Diagnosis Memory change- Primary Memory loss Urine leukocytes Other cells and casts in urine [facility]* Diagnosis Dementia without behavioral disturbance (HCC)- Primary Dementia, unspecified, without behavioral disturbance Balance disorder Other symptoms involving nervous and musculoskeletal systems Shaking Abnormal involuntary movements Hypothyroidism, acquired Unspecified hypothyroidism [facility]* Diagnosis Balance disorder- Primary Other symptoms involving nervous and musculoskeletal systems [facility] Diagnosis Balance disorder- Primary Other symptoms involving nervous and musculoskeletal systems [facility] Diagnosis Balance disorder- Primary Other symptoms involving nervous and musculoskeletal systems [facility] Diagnosis Dementia without behavioral disturbance, psychotic disturbance, mood disturbance, or anxiety, unspecified dementia severity, unspecified dementia type (HCC)- Primary Balance disorder Other symptoms involving nervous and musculoskeletal systems Shaking Abnormal involuntary movements Cervical myelopathy (HCC) Cervical spondylosis with myelopathy Ataxia Lack of coordination Cerebral amyloid angiopathy (CODE) History of cervical fracture Personal history of traumatic fracture Recurrent falls Personal history of fall History of recent traumatic injury of head [facility] [place] [facility] Diagnosis Mixed hyperlipidemia [facility] Diagnosis Foreign body of right ear, initial encounter- Primary [facility] Diagnosis Ataxia Lack of coordination Cerebral amyloid angiopathy (CODE) Balance disorder Other symptoms involving nervous and musculoskeletal systems Cervical myelopathy (HCC) Cervical spondylosis with myelopathy History of cervical fracture Personal history of traumatic fracture [facility] Diagnosis Leg cramps- Primary Cramp of limb Diarrhea, unspecified type Iron deficiency Iron deficiency anemia, unspecified Dementia without behavioral disturbance (HCC) Dementia, unspecified, without behavioral disturbance [facility] Diagnosis Dementia without behavioral disturbance (HCC)- Primary Dementia, unspecified, without behavioral disturbance [facility]* Diagnosis Cerebral amyloid angiopathy (CODE)- Primary [facility] [place] [facility]* Diagnosis Dementia without behavioral disturbance (HCC)- Primary Dementia, unspecified, without behavioral disturbance Obstructive sleep apnea syndrome Obstructive sleep apnea (adult) (pediatric) [facility]* Diagnosis Closed nondisplaced fracture of sixth cervical vertebra with delayed healing, unspecified fracture morphology, subsequent encounter- Primary Other closed nondisplaced fracture of seventh cervical vertebra with delayed healing, subsequent encounter C6 cervical fracture (HCC) Closed fracture of sixth cervical vertebra without mention of spinal cord injury Hypothyroidism, acquired Unspecified hypothyroidism Osteopenia of multiple sites- Primary [facility] Diagnosis Closed nondisplaced fracture of sixth cervical vertebra with delayed healing, unspecified fracture morphology, subsequent encounter- Primary Other closed nondisplaced fracture of seventh cervical vertebra with delayed healing, subsequent encounter C6 cervical fracture (HCC) Closed fracture of sixth cervical vertebra without mention of spinal cord injury Hypothyroidism, acquired Unspecified hypothyroidism Dementia without behavioral disturbance, psychotic disturbance, mood disturbance, or anxiety, unspecified dementia severity, unspecified dementia type (HCC)- Primary Cerebral amyloid angiopathy (CODE) Balance disorder Other symptoms involving nervous and musculoskeletal systems Ataxia Lack of coordination Recurrent falls Personal history of fall History of recent traumatic injury of head History of cervical fracture Personal history of traumatic fracture [facility] [place] [facility] Diagnosis Closed nondisplaced fracture of sixth cervical vertebra with delayed healing, unspecified fracture morphology, subsequent encounter- Primary Other closed nondisplaced fracture of seventh cervical vertebra with delayed healing, subsequent encounter C6 cervical fracture (HCC) Closed fracture of sixth cervical vertebra without mention of spinal cord injury Hypothyroidism, acquired Unspecified hypothyroidism Hyperlipidemia, unspecified hyperlipidemia type [facility] [place] [facility]* Diagnosis Closed nondisplaced fracture of sixth cervical vertebra with delayed healing, unspecified fracture morphology, subsequent encounter- Primary Other closed nondisplaced fracture of seventh cervical vertebra with delayed healing, subsequent encounter C6 cervical fracture (HCC) Closed fracture of sixth cervical vertebra without mention of spinal cord injury Hypothyroidism, acquired Unspecified hypothyroidism Hypothyroidism, acquired Unspecified hypothyroidism [facility] [place] [facility]* Diagnosis Closed nondisplaced fracture of sixth cervical vertebra with delayed healing, unspecified fracture morphology, subsequent encounter- Primary Other closed nondisplaced fracture of seventh cervical vertebra with delayed healing, subsequent encounter C6 cervical fracture (HCC) Closed fracture of sixth cervical vertebra without mention of spinal cord injury Hypothyroidism, acquired Unspecified hypothyroidism Medicare annual wellness visit, subsequent- Primary Routine general medical examination at a health care facility Stage 3a chronic kidney disease (HCC) [facility] [place] [facility]* Diagnosis Closed nondisplaced fracture of sixth cervical vertebra with delayed healing, unspecified fracture morphology, subsequent encounter- Primary Other closed nondisplaced fracture of seventh cervical vertebra with delayed healing, subsequent encounter C6 cervical fracture (HCC) Closed fracture of sixth cervical vertebra without mention of spinal cord injury Hypothyroidism, acquired Unspecified hypothyroidism Dementia without behavioral disturbance, psychotic disturbance, mood disturbance, or anxiety, unspecified dementia severity, unspecified dementia type ([facility]) [facility] [place] [facility]* Diagnosis Closed nondisplaced fracture of sixth cervical vertebra with delayed healing, unspecified fracture morphology, subsequent encounter- Primary Other closed nondisplaced fracture of seventh cervical vertebra with delayed healing, subsequent encounter C6 cervical fracture (HCC) Closed fracture of sixth cervical vertebra without mention of spinal cord injury Hypothyroidism, acquired Unspecified hypothyroidism Balance disorder- Primary Other symptoms involving nervous and musculoskeletal systems At risk for falls Personal history of fall Dementia without behavioral disturbance (HCC) Dementia, unspecified, without behavioral disturbance Age-related osteoporosis without current pathological fracture Senile osteoporosis documented in this encounter [facility] note* Diagnosis Closed nondisplaced fracture of sixth cervical vertebra with delayed healing, unspecified fracture morphology, subsequent encounter- Primary Other closed nondisplaced fracture of seventh cervical vertebra with delayed healing, subsequent encounter C6 cervical fracture (HCC) Closed fracture of sixth cervical vertebra without mention of spinal cord injury Hypothyroidism, acquired Unspecified hypothyroidism Diarrhea, unspecified type- Primary Incontinence of feces, unspecified fecal incontinence type Medication side effect Unspecified adverse effect of unspecified drug, medicinal and biological substance Hypermagnesemia Disorders of magnesium metabolism documented in this encounter [facility] note* Diagnosis Closed nondisplaced fracture of sixth cervical vertebra with delayed healing, unspecified fracture morphology, subsequent encounter- Primary Other closed nondisplaced fracture of seventh cervical vertebra with delayed healing, subsequent encounter C6 cervical fracture (HCC) Closed fracture of sixth cervical vertebra without mention of spinal cord injury Hypothyroidism, acquired Unspecified hypothyroidism Diarrhea, unspecified type- Primary Age related osteoporosis, unspecified pathological fracture presence documented in this encounter [facility] note* Diagnosis Closed nondisplaced fracture of sixth cervical vertebra with delayed healing, unspecified fracture morphology, subsequent encounter- Primary Other closed nondisplaced fracture of seventh cervical vertebra with delayed healing, subsequent encounter C6 cervical fracture (HCC) Closed fracture of sixth cervical vertebra without mention of spinal cord injury Hypothyroidism, acquired Unspecified hypothyroidism Dementia without behavioral disturbance (HCC) Dementia, unspecified, without behavioral disturbance documented in this encounter [facility] note* Diagnosis Closed nondisplaced fracture of sixth cervical vertebra with delayed healing, unspecified fracture morphology, subsequent encounter- Primary Other closed nondisplaced fracture of seventh cervical vertebra with delayed healing, subsequent encounter C6 cervical fracture (HCC) Closed fracture of sixth cervical vertebra without mention of spinal cord injury Hypothyroidism, acquired Unspecified hypothyroidism Hypothyroidism, acquired Unspecified hypothyroidism [facility] Closed nondisplaced fracture of sixth cervical vertebra with delayed healing, unspecified fracture morphology, subsequent encounter- Primary Other closed nondisplaced fracture of seventh cervical vertebra with delayed healing, subsequent encounter C6 cervical fracture (HCC) Closed fracture of sixth cervical vertebra without mention of spinal cord injury Hypothyroidism, acquired Unspecified hypothyroidism Hypothyroidism, acquired Unspecified hypothyroidism [facility] Diagnosis Closed nondisplaced fracture of sixth cervical vertebra with delayed healing, unspecified fracture morphology, subsequent encounter- Primary Other closed nondisplaced fracture of seventh cervical vertebra with delayed healing, subsequent encounter C6 cervical fracture (HCC) Closed fracture of sixth cervical vertebra without mention of spinal cord injury Hypothyroidism, acquired Unspecified hypothyroidism Hypothyroidism, acquired Unspecified hypothyroidism Hyperlipidemia, unspecified hyperlipidemia type [facility] [place] [facility]* Diagnosis Closed nondisplaced fracture of sixth cervical vertebra with delayed healing, unspecified fracture morphology, subsequent encounter- Primary Other closed nondisplaced fracture of seventh cervical vertebra with delayed healing, subsequent encounter C6 cervical fracture (HCC) Closed fracture of sixth cervical vertebra without mention of spinal cord injury Hypothyroidism, acquired Unspecified hypothyroidism Hypomagnesemia- Primary Disorders of magnesium metabolism [facility] [place] [facility]* Diagnosis Closed nondisplaced fracture of sixth cervical vertebra with delayed healing, unspecified fracture morphology, subsequent encounter- Primary Other closed nondisplaced fracture of seventh cervical vertebra with delayed healing, subsequent encounter C6 cervical fracture (HCC) Closed fracture of sixth cervical vertebra without mention of spinal cord injury Hypothyroidism, acquired Unspecified hypothyroidism Osteopenia of multiple sites- Primary [facility] [place] [facility]* Diagnosis Closed nondisplaced fracture of sixth cervical vertebra with delayed healing, unspecified fracture morphology, subsequent encounter- Primary Other closed nondisplaced fracture of seventh cervical vertebra with delayed healing, subsequent encounter C6 cervical fracture (HCC) Closed fracture of sixth cervical vertebra without mention of spinal cord injury Hypothyroidism, acquired Unspecified hypothyroidism 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, psychotic disturbance, mood disturbance, or anxiety (HCC) Hypothyroidism, unspecified type [facility] [place] [facility]* Diagnosis Closed nondisplaced fracture of sixth cervical vertebra with delayed healing, unspecified fracture morphology, subsequent encounter- Primary Other closed nondisplaced fracture of seventh cervical vertebra with delayed healing, subsequent encounter C6 cervical fracture (HCC) Closed fracture of sixth cervical vertebra without mention of spinal cord injury Hypothyroidism, acquired Unspecified hypothyroidism Mixed hyperlipidemia Hypothyroidism, acquired Unspecified hypothyroidism [facility] [place] [facility]* Diagnosis Closed nondisplaced fracture of sixth cervical vertebra with delayed healing, unspecified fracture morphology, subsequent encounter- Primary Other closed nondisplaced fracture of seventh cervical vertebra with delayed healing, subsequent encounter C6 cervical fracture (HCC) Closed fracture of sixth cervical vertebra without mention of spinal cord injury Hypothyroidism, acquired Unspecified hypothyroidism Fall, sequela- Primary Balance disorder Other symptoms involving nervous and musculoskeletal systems Essential hypertension Unspecified essential hypertension Dementia without behavioral disturbance (HCC) Dementia, unspecified, without behavioral disturbance Contusion of scalp, sequela Diarrhea, unspecified type [facility] [place] [facility]* Diagnosis Closed nondisplaced fracture of sixth cervical vertebra with delayed healing, unspecified fracture morphology, subsequent encounter- Primary Other closed nondisplaced fracture of seventh cervical vertebra with delayed healing, subsequent encounter C6 cervical fracture (HCC) Closed fracture of sixth cervical vertebra without mention of spinal cord injury Hypothyroidism, acquired Unspecified hypothyroidism Dementia without behavioral disturbance, psychotic disturbance, mood disturbance, or anxiety, unspecified dementia severity, unspecified dementia type (HCC) [facility] [place] [facility]* Diagnosis Closed nondisplaced fracture of sixth cervical vertebra with delayed healing, unspecified fracture morphology, subsequent encounter- Primary Other closed nondisplaced fracture of seventh cervical vertebra with delayed healing, subsequent encounter C6 cervical fracture (HCC) Closed fracture of sixth cervical vertebra without mention of spinal cord injury Hypothyroidism, acquired Unspecified hypothyroidism Dementia without behavioral disturbance, psychotic disturbance, mood disturbance, or anxiety, unspecified dementia severity, unspecified dementia type (HCC) [facility] [place] [facility]* Diagnosis Closed nondisplaced fracture of sixth cervical vertebra with delayed healing, unspecified fracture morphology, subsequent encounter- Primary Other closed nondisplaced fracture of seventh cervical vertebra with delayed healing, subsequent encounter C6 cervical fracture (HCC) Closed fracture of sixth cervical vertebra without mention of spinal cord injury Hypothyroidism, acquired Unspecified hypothyroidism Dementia without behavioral disturbance (HCC)- Primary Dementia, unspecified, without behavioral disturbance documented in this encounter [facility] [place] [facility]* Diagnosis Closed nondisplaced fracture of sixth cervical vertebra with delayed healing, unspecified fracture morphology, subsequent encounter- Primary Other closed nondisplaced fracture of seventh cervical vertebra with delayed healing, subsequent encounter C6 cervical fracture (HCC) Closed fracture of sixth cervical vertebra without mention of spinal cord injury Hypothyroidism, acquired Unspecified hypothyroidism Umbilicus discharge- Primary Other symptoms involving abdomen and pelvis Common wart Other specified viral warts [facility] [place] [facility] Diagnosis Closed nondisplaced fracture of sixth cervical vertebra with delayed healing, unspecified fracture morphology, subsequent encounter- Primary Other closed nondisplaced fracture of seventh cervical vertebra with delayed healing, subsequent encounter C6 cervical fracture (HCC) Closed fracture of sixth cervical vertebra without mention of spinal cord injury Hypothyroidism, acquired Unspecified hypothyroidism Skin lesion of hand- Primary Unspecified disorder of skin and subcutaneous tissue documented in this encounter [facility] [place] [facility]* Diagnosis Closed nondisplaced fracture of sixth cervical vertebra with delayed healing, unspecified fracture morphology, subsequent encounter- Primary Other closed nondisplaced fracture of seventh cervical vertebra with delayed healing, subsequent encounter C6 cervical fracture (HCC) Closed fracture of sixth cervical vertebra without mention of spinal cord injury Hypothyroidism, acquired Unspecified hypothyroidism Hyperlipidemia, unspecified hyperlipidemia type Hypothyroidism, acquired Unspecified hypothyroidism [facility] [place] [facility] Diagnosis Closed nondisplaced fracture of sixth cervical vertebra with delayed healing, unspecified fracture morphology, subsequent encounter- Primary Other closed nondisplaced fracture of seventh cervical vertebra with delayed healing, subsequent encounter C6 cervical fracture (HCC) Closed fracture of sixth cervical vertebra without mention of spinal cord injury Hypothyroidism, acquired Unspecified hypothyroidism Depression, unspecified depression type- Primary Hypothyroidism, acquired Unspecified hypothyroidism Essential hypertension Unspecified essential hypertension Dementia without behavioral disturbance (HCC) Dementia, unspecified, without behavioral disturbance Muscle cramp Cramp of limb documented in this encounter [facility] note* Diagnosis Closed nondisplaced fracture of sixth cervical vertebra with delayed healing, unspecified fracture morphology, subsequent encounter- Primary Other closed nondisplaced fracture of seventh cervical vertebra with delayed healing, subsequent encounter C6 cervical fracture (HCC) Closed fracture of sixth cervical vertebra without mention of spinal cord injury Hypothyroidism, acquired Unspecified hypothyroidism Diarrhea, unspecified type- Primary Fecal urgency Hypothyroidism, acquired Unspecified hypothyroidism Dementia without behavioral disturbance (HCC) Dementia, unspecified, without behavioral disturbance Cerebral amyloid angiopathy (CODE) Vitamin D deficiency Unspecified vitamin D deficiency History of fall Personal history of fall documented in this encounter [facility] [place] [facility]* Diagnosis Closed nondisplaced fracture of sixth cervical vertebra with delayed healing, unspecified fracture morphology, subsequent encounter- Primary Other closed nondisplaced fracture of seventh cervical vertebra with delayed healing, subsequent encounter C6 cervical fracture (HCC) Closed fracture of sixth cervical vertebra without mention of spinal cord injury Hypothyroidism, acquired Unspecified hypothyroidism Dementia without behavioral disturbance (HCC) Dementia, unspecified, without behavioral disturbance documented in this encounter [facility] Discharge instructionsAdditional Instructions 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 It is not from an infection. To help this, you will be on prednisone. Put weight on wrist as you are able to tolerate.[facility] Work Phone: Reason for referral (narrative)* Diagnostic Procedure Only (Routine) - Closed Specialty Diagnoses / Procedures Referred By Contac t Referred To Contact XR IMAGING Diagnoses Closed nondisplaced fracture of seventh cervical vertebra, unspecified fracture morphology, initial encounter ([facility]) Procedures XR CERV GENERAL 2V AP/LAT RADEX SPINE CERVICAL 2 OR 3 VIEWS [facility] Provider Adult [address] [place] [address] Xr Imaging Referral ID Status Reason Start Date Expiration Date V isits Requested Visits Authorized [id number] Closed Auto-Generate d Referral 07/06/2021 07/22/2022 1 1 [facility] for referral (narrative)* Diagnostic Procedure Only (Routine) - Closed Specialty Diagnoses / Procedures Referred By Contac t Referred To Contact XR IMAGING Diagnoses Closed nondisplaced fracture of sixth cervical vertebra with delayed healing, unspecified fracture morphology, subsequent encounter Procedures XR CERV GENERAL 2V AP/LAT RADEX SPINE CERVICAL 2 OR 3 VIEWS Sahra Amador MD [address] [place] [address] Xr Imaging Referral ID Status Reason Start Date Expiration Date V isits Requested Visits Authorized [id number] Closed Auto-Generate d Referral 09/12/2021 10/12/2022 1 1 [facility] for referral (narrative)* Diagnostic Procedure Only (Routine) - Authorized Specialty Diagnoses / Procedures Referred By Contac t Referred To Contact XR IMAGING Diagnoses Age related osteoporosis, unspecified pathological fracture presence Procedures DXA-AXIAL SKELETON DXA BONE DENSITY STUDY 1/> SITES AXIAL Ashley Thomas MD [address] [place] [address] [place] [address] Referral ID Status Reason Start Date Expiration Date Visits Requested Visits Authorized [id number] Authorized Auto-Generat ed Referral 05/13/2024 06/12/2025 1 1 [facility]No reason for referral information availableWSum[facility] Work Phone: Reason for visit Narrative* Diagnostic Procedure Only (Routine) - Closed Specialty Diagnoses / Procedures Referred By Contac t Referred To Contact XR IMAGING Diagnoses Closed nondisplaced fracture of seventh cervical vertebra, unspecified fracture morphology, initial encounter (HCC) Procedures XR CERV GENERAL 2V AP/LAT RADEX SPINE CERVICAL 2 OR 3 VIEWS Ak Provider Adult [address] [place] [address] Xr Imaging Referral ID Status Reason Start Date Expiration Date V isits Requested Visits Authorized [id number] Closed Auto-Generate d Referral 07/06/2021 07/22/2022 1 1 [facility] Summary Purpose Family History Relationship Condition Age at Onset Recorded Date/T dez Not Specified Asthma Unknown Advance Directives Documents on File Type Date Recorded 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 Advance Directive(s) 06/20/2021 10:29 PM Advance Directive(s) 09/30/2019 7:51 AM Advance Directive(s) 09/12/2019 9:20 AM Documents on File Type Date Recorded 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 Advance Directive(s) 06/20/2021 10:29 PM Advance Directive(s) 09/30/2019 7:51 AM Advance Directive(s) 09/12/2019 9:20 AM Documents on File Type Date Recorded 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 Advance Directive(s) 07/07/2021 2:33 PM Advance Directive(s) 06/20/2021 10:29 PM Advance Directive(s) 09/30/2019 7:51 AM Advance Directive(s) 09/12/2019 9:20 AM Documents on File Type Date Recorded 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 [address] [address] Referral ID Status Reason Start Date Expiration Date Visits Requested Visits Authorized [id number] Pending Review Auto-Generat ed Referral 11/22/2022 11/22/2023 1 1 Specialty Diagnoses / Procedures Referred By Contac t Referred To Contact [facility] Diagnoses Balance disorder Procedures CONSULT TO PHYSICAL THERAPY PHYSICAL THERAPY EVALUATION HIGH COMPLEX 45 MINS Yvonne Valente APRN.CNP [address] [place] [address] [facility] [place] [address] Referral ID Status Reason Start Date Expiration Date Visits Requested Visits Authorized [id number] Pending Review Auto-Generat ed Referral 06/27/2023 06/26/2024 1 1 Specialty Diagnoses / Procedures Referred By Contac t Referred To Contact [facility] Diagnoses Chest pain, unspecified type Procedures ECG COMPLETE ECG ROUTINE ECG W/LEAST 12 LDS W/I&R Yvonne Valente APRN.ICT ACCOUNT MANAGER [address] [place] [address] [facility] [address] [place] [address] Referral ID Status Reason Start Date Expiration Date Visits Requested Visits Authorized [id number] Pending Review Auto-Generat ed Referral 06/27/2023 06/26/2024 1 1 Referral ID Status Reason Start Date Expiration Date Visits Requested Visits Authorized [id number] Authorized Auto-Generat ed Referral 04/09/2023 04/08/2024 99 99 Specialty Diagnoses / Procedures Referred By Contac t Referred To Contact Neurology Diagnoses Balance disorder Dementia without behavioral disturbance (HCC) Shaking Procedures CONSULT TO NEUROLOGY OFFICE/OUTPATIENT [facility] 60 MINUTES Yvonne Valente APRN.ICT ACCOUNT MANAGER [address] [place] [address] Referral ID Status Reason Start Date Expiration Date Visits Requested Visits Authorized [id number] Pending Review PCP Requested Referral 07/16/2023 07/15/2024 1 1 Specialty Diagnoses / Procedures Referred By Contac t Referred To Contact MR IMAGING Diagnoses Balance disorder Cervical myelopathy (HCC) Ataxia History of cervical fracture Procedures MRI CERVICAL SPINE WO IVCON MRI SPINAL CANAL CERVICAL W/O CONTRAST MATRL Myrna Plata Jr., MD [address] [facility] [address] [place] [address] [place] [address] Referral ID Status Reason Start Date Expiration Date Visits Requested Visits Authorized [id number] Authorized Auto-Generat ed Referral 09/10/2023 10/09/2024 1 1 Specialty Diagnoses / Procedures Referred By Contac t Referred To Contact MR IMAGING Diagnoses Ataxia Cerebral amyloid angiopathy (CODE) Procedures MRI BRAIN WO IVCON MRI BRAIN BRAIN STEM W/O CONTRAST MATERIAL Myrna Plata Jr., MD [address] [facility] [address] [place] [address] [place] [address] Referral ID Status Reason Start Date Expiration Date Visits Requested Visits Authorized [id number] Authorized Auto-Generat ed Referral 09/10/2023 10/09/2024 1 1 Referral ID Status Reason Start Date Expiration Date V isits Requested Visits Authorized [id number] Closed Auto-Generate d Referral 09/10/2023 10/09/2024 1 1 Specialty Diagnoses / Procedures Referred By Contac t Referred To Contact Gerontology Diagnoses Dementia without behavioral disturbance (HCC) Procedures CONSULT TO GERIATRICS OFFICE/OUTPATIENT [facility] 60 MINUTES Yvonne Valente APRN.CNP [address] [place] [address] Referral ID Status Reason Start Date Expiration Date Visits Requested Visits Authorized [id number] Pending Review PCP Requested Referral 10/19/2023 10/18/2024 1 1 Specialty Diagnoses / Procedures Referred By Contac t Referred To Contact Neurology Diagnoses Cerebral amyloid angiopathy (CODE) Procedures CONSULT TO NEUROLOGY OFFICE/OUTPATIENT [facility] 60 MINUTES Myrna Plata Jr., MD [address] [address] Referral ID Status Reason Start Date Expiration Date Visits Requested Visits Authorized [id number] Pending Review PCP Requested Referral 10/25/2023 10/24/2024 1 1 Specialty Diagnoses / Procedures Referred By Contac t Referred To Contact Gastroenterology Diagnoses Diarrhea, unspecified type Incontinence of feces, unspecified fecal incontinence type Procedures CONSULT TO GASTROENTEROLOGY OFFICE/OUTPATIENT [facility] 60 MINUTES Ashley Roberson MD [address] [place] [address] Referral ID Status Reason Start Date Expiration Date Visits Requested Visits Authorized [id number] Authorized PCP Requested Referral 04/25/2024 04/25/2025 1 1 Health Concerns Infection Onset Date Last Indicated Resolved Time COVID-19 Rule-Out 06/20/2021 06/20/2021 06/21/2021 12:49 AM EDT COVID-19 Rule-Out 07/11/2021 07/11/2021 07/11/2021 1:04 PM EDT COVID-19 Rule-Out 07/18/2021 07/18/2021 07/18/2021 11:15 AM EDT Chief Complaint and Reason for Visit Chief Complaint SCREENING Chief Complaint Admit Date SCREENING June 17, 2024 9:5 4am Chief Complaint Admit Date SEPTIC RIGHT WRIST JOINT January 24, 025 3:24pm SEPTIC RIGHT WRIST JOINT January 24, 025 7:09pm AM EKG January 25, 2025 4 :39am SEPTIC RIGHT WRIST JOINT January 25 025 4:59pm SEPTIC RIGHT WRIST JOINT January 26 025 7:59am SEPTIC RIGHT WRIST JOINT January 27 025 7:10am Reason for Visit Admit Date Dementia without behavioral disturbance January 24, 2025 3:24pm 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, 2025 3:24pm Additional Source Comments INFORMATION SOURCE (unrecogn ized section and content) DATE CREATED AUTHOR 08/23/2019 [facility] [place] [facility] DATE CREATED AUTHOR AUTHOR'S ORGANIZ ATION 05/28/2021 [facility] DATE CREATED AUTHOR AUTHOR'S ORGANIZ ATION 09/14/2021 [facility] DATE CREATED AUTHOR AUTHOR'S ORGANIZ ATION 01/24/2023 [facility] DATE CREATED AUTHOR AUTHOR'S ORGANIZ ATION 02/05/2025 [facility] DATE CREATED AUTHOR AUTHOR'S ORGANIZ ATION 02/07/2025 [facility] Source Comments (unrecognize d section and content) In the event this informatio n is protected by the Federal Confidentiality of Alcohol and Drug Abuse Patient Records regulations: The Federal rules restrict any use of the information to criminally investigate or prosecute any alcohol or drug abuse patient.[facility] the event this information is protected by the Federal Confidentiality of Alcohol and Drug Abuse Patient Records regulations: The Federal rules restrict any use of the information to criminally investigate or prosecute any alcohol or drug abuse patient.[facility] the event this information is protected by the Federal Confidentiality of Alcohol and Drug Abuse Patient Records regulations: The Federal rules restrict any use of the information to criminally investigate or prosecute any alcohol or drug abuse patient.[facility] the event this information is protected by the Federal Confidentiality of Alcohol and Drug Abuse Patient Records regulations: The Federal rules restrict any use of the information to criminally investigate or prosecute any alcohol or drug abuse patient.[facility] the event this information is protected by the Federal Confidentiality of Alcohol and Drug Abuse Patient Records regulations: The Federal rules restrict any use of the information to criminally investigate or prosecute any alcohol or drug abuse patient.[facility] Hospital[facility] the event this information is protected by the Federal Confidentiality of Alcohol and Drug Abuse Patient Records regulations: The Federal rules restrict any use of the information to criminally investigate or prosecute any alcohol or drug abuse patient.[facility] HospitalIn the event this information is protected by the Federal Confidentiality of Alcohol and Drug Abuse Patient Records regulations: The Federal rules restrict any use of the information to criminally investigate or prosecute any alcohol or drug abuse patient.[facility] HospitalIn the event this information is protected by the Federal Confidentiality of Alcohol and Drug Abuse Patient Records regulations: The Federal rules restrict any use of the information to criminally investigate or prosecute any alcohol or drug abuse patient.[facility] HospitalIn the event this information is protected by the Federal Confidentiality of Alcohol and Drug Abuse Patient Records regulations: The Federal rules restrict any use of the information to criminally investigate or prosecute any alcohol or drug abuse patient.[facility] the event this information is protected by the Federal Confidentiality of Alcohol and Drug Abuse Patient Records regulations: The Federal rules restrict any use of the information to criminally investigate or prosecute any alcohol or drug abuse patient.[facility] HospitalIn the event this information is protected by the Federal Confidentiality of Alcohol and Drug Abuse Patient Records regulations: The Federal rules restrict any use of the information to criminally investigate or prosecute any alcohol or drug abuse patient.[facility] HospitalIn the event this information is protected by the Federal Confidentiality of Alcohol and Drug Abuse Patient Records regulations: The Federal rules restrict any use of the information to criminally investigate or prosecute any alcohol or drug abuse patient.[facility] HospitalIn the event this information is protected by the Federal Confidentiality of Alcohol and Drug Abuse Patient Records regulations: The Federal rules restrict any use of the information to criminally investigate or prosecute any alcohol or drug abuse patient.[facility] HospitalIn the event this information is protected by the Federal Confidentiality of Alcohol and Drug Abuse Patient Records regulations: The Federal rules restrict any use of the information to criminally investigate or prosecute any alcohol or drug abuse patient.[facility] HospitalIn the event this information is protected by the Federal Confidentiality of Alcohol and Drug Abuse Patient Records regulations: The Federal rules restrict any use of the information to criminally investigate or prosecute any alcohol or drug abuse patient.[facility] HospitalIn the event this information is protected by the Federal Confidentiality of Alcohol and Drug Abuse Patient Records regulations: The Federal rules restrict any use of the information to criminally investigate or prosecute any alcohol or drug abuse patient.[facility] HospitalIn the event this information is protected by the Federal Confidentiality of Alcohol and Drug Abuse Patient Records regulations: The Federal rules restrict any use of the information to criminally investigate or prosecute any alcohol or drug abuse patient.[facility] HospitalIn the event this information is protected by the Federal Confidentiality of Alcohol and Drug Abuse Patient Records regulations: The Federal rules restrict any use of the information to criminally investigate or prosecute any alcohol or drug abuse patient.[facility] HospitalIn the event this information is protected by the Federal Confidentiality of Alcohol and Drug Abuse Patient Records regulations: The Federal rules restrict any use of the information to criminally investigate or prosecute any alcohol or drug abuse patient.[facility] HospitalIn the event this information is protected by the Federal Confidentiality of Alcohol and Drug Abuse Patient Records regulations: The Federal rules restrict any use of the information to criminally investigate or prosecute any alcohol or drug abuse patient.[facility] HospitalIn the event this information is protected by the Federal Confidentiality of Alcohol and Drug Abuse Patient Records regulations: The Federal rules restrict any use of the information to criminally investigate or prosecute any alcohol or drug abuse patient.[facility] HospitalIn the event this information is protected by the Federal Confidentiality of Alcohol and Drug Abuse Patient Records regulations: The Federal rules restrict any use of the information to criminally investigate or prosecute any alcohol or drug abuse patient.[facility] HospitalIn the event this information is protected by the Federal Confidentiality of Alcohol and Drug Abuse Patient Records regulations: The Federal rules restrict any use of the information to criminally investigate or prosecute any alcohol or drug abuse patient.[facility] HospitalIn the event this information is protected by the Federal Confidentiality of Alcohol and Drug Abuse Patient Records regulations: The Federal rules restrict any use of the information to criminally investigate or prosecute any alcohol or drug abuse patient.[facility] HospitalIn the event this information is protected by the Federal Confidentiality of Alcohol and Drug Abuse Patient Records regulations: The Federal rules restrict any use of the information to criminally investigate or prosecute any alcohol or drug abuse patient.[facility] HospitalIn the event this information is protected by the Federal Confidentiality of Alcohol and Drug Abuse Patient Records regulations: The Federal rules restrict any use of the information to criminally investigate or prosecute any alcohol or drug abuse patient.[facility] HospitalIn the event this information is protected by the Federal Confidentiality of Alcohol and Drug Abuse Patient Records regulations: The Federal rules restrict any use of the information to criminally investigate or prosecute any alcohol or drug abuse patient.[facility] HospitalIn the event this information is protected by the Federal Confidentiality of Alcohol and Drug Abuse Patient Records regulations: The Federal rules restrict any use of the information to criminally investigate or prosecute any alcohol or drug abuse patient.[facility] HospitalIn the event this information is protected by the Federal Confidentiality of Alcohol and Drug Abuse Patient Records regulations: The Federal rules restrict any use of the information to criminally investigate or prosecute any alcohol or drug abuse patient.[facility] the event this information is protected by the Federal Confidentiality of Alcohol and Drug Abuse Patient Records regulations: The Federal rules restrict any use of the information to criminally investigate or prosecute any alcohol or drug abuse patient.[facility] HospitalIn the event this information is protected by the Federal Confidentiality of Alcohol and Drug Abuse Patient Records regulations: The Federal rules restrict any use of the information to criminally investigate or prosecute any alcohol or drug abuse patient.[facility] HospitalIn the event this information is protected by the Federal Confidentiality of Alcohol and Drug Abuse Patient Records regulations: The Federal rules restrict any use of the information to criminally investigate or prosecute any alcohol or drug abuse patient.[facility] the event this information is protected by the Federal Confidentiality of Alcohol and Drug Abuse Patient Records regulations: The Federal rules restrict any use of the information to criminally investigate or prosecute any alcohol or drug abuse patient.[facility] HospitalIn the event this information is protected by the Federal Confidentiality of Alcohol and Drug Abuse Patient Records regulations: The Federal rules restrict any use of the information to criminally investigate or prosecute any alcohol or drug abuse patient.[facility] HospitalIn the event this information is protected by the Federal Confidentiality of Alcohol and Drug Abuse Patient Records regulations: The Federal rules restrict any use of the information to criminally investigate or prosecute any alcohol or drug abuse patient.[facility] HospitalIn the event this information is protected by the Federal Confidentiality of Alcohol and Drug Abuse Patient Records regulations: The Federal rules restrict any use of the information to criminally investigate or prosecute any alcohol or drug abuse patient.[facility] HospitalIn the event this information is protected by the Federal Confidentiality of Alcohol and Drug Abuse Patient Records regulations: The Federal rules restrict any use of the information to criminally investigate or prosecute any alcohol or drug abuse patient.[facility] HospitalIn the event this information is protected by the Federal Confidentiality of Alcohol and Drug Abuse Patient Records regulations: The Federal rules restrict any use of the information to criminally investigate or prosecute any alcohol or drug abuse patient.[facility] HospitalIn the event this information is protected by the Federal Confidentiality of Alcohol and Drug Abuse Patient Records regulations: The Federal rules restrict any use of the information to criminally investigate or prosecute any alcohol or drug abuse patient.[facility] HospitalIn the event this information is protected by the Federal Confidentiality of Alcohol and Drug Abuse Patient Records regulations: The Federal rules restrict any use of the information to criminally investigate or prosecute any alcohol or drug abuse patient.[facility] HospitalIn the event this information is protected by the Federal Confidentiality of Alcohol and Drug Abuse Patient Records regulations: The Federal rules restrict any use of the information to criminally investigate or prosecute any alcohol or drug abuse patient.[facility] HospitalIn the event this information is protected by the Federal Confidentiality of Alcohol and Drug Abuse Patient Records regulations: The Federal rules restrict any use of the information to criminally investigate or prosecute any alcohol or drug abuse patient.[facility] HospitalIn the event this information is protected by the Federal Confidentiality of Alcohol and Drug Abuse Patient Records regulations: The Federal rules restrict any use of the information to criminally investigate or prosecute any alcohol or drug abuse patient.[facility] HospitalIn the event this information is protected by the Federal Confidentiality of Alcohol and Drug Abuse Patient Records regulations: The Federal rules restrict any use of the information to criminally investigate or prosecute any alcohol or drug abuse patient.[facility] HospitalIn the event this information is protected by the Federal Confidentiality of Alcohol and Drug Abuse Patient Records regulations: The Federal rules restrict any use of the information to criminally investigate or prosecute any alcohol or drug abuse patient.[facility] HospitalIn the event this information is protected by the Federal Confidentiality of Alcohol and Drug Abuse Patient Records regulations: The Federal rules restrict any use of the information to criminally investigate or prosecute any alcohol or drug abuse patient.[facility] HospitalIn the event this information is protected by the Federal Confidentiality of Alcohol and Drug Abuse Patient Records regulations: The Federal rules restrict any use of the information to criminally investigate or prosecute any alcohol or drug abuse patient.[facility] HospitalIn the event this information is protected by the Federal Confidentiality of Alcohol and Drug Abuse Patient Records regulations: The Federal rules restrict any use of the information to criminally investigate or prosecute any alcohol or drug abuse patient.[facility] HospitalIn the event this information is protected by the Federal Confidentiality of Alcohol and Drug Abuse Patient Records regulations: The Federal rules restrict any use of the information to criminally investigate or prosecute any alcohol or drug abuse patient.[facility] HospitalIn the event this information is protected by the Federal Confidentiality of Alcohol and Drug Abuse Patient Records regulations: The Federal rules restrict any use of the information to criminally investigate or prosecute any alcohol or drug abuse patient.[facility] HospitalIn the event this information is protected by the Federal Confidentiality of Alcohol and Drug Abuse Patient Records regulations: The Federal rules restrict any use of the information to criminally investigate or prosecute any alcohol or drug abuse patient.[facility] HospitalIn the event this information is protected by the Federal Confidentiality of Alcohol and Drug Abuse Patient Records regulations: The Federal rules restrict any use of the information to criminally investigate or prosecute any alcohol or drug abuse patient.[facility] HospitalIn the event this information is protected by the Federal Confidentiality of Alcohol and Drug Abuse Patient Records regulations: The Federal rules restrict any use of the information to criminally investigate or prosecute any alcohol or drug abuse patient.[facility] HospitalIn the event this information is protected by the Federal Confidentiality of Alcohol and Drug Abuse Patient Records regulations: The Federal rules restrict any use of the information to criminally investigate or prosecute any alcohol or drug abuse patient.[facility] HospitalIn the event this information is protected by the Federal Confidentiality of Alcohol and Drug Abuse Patient Records regulations: The Federal rules restrict any use of the information to criminally investigate or prosecute any alcohol or drug abuse patient.[facility] HospitalIn the event this information is protected by the Federal Confidentiality of Alcohol and Drug Abuse Patient Records regulations: The Federal rules restrict any use of the information to criminally investigate or prosecute any alcohol or drug abuse patient.[facility] HospitalIn the event this information is protected by the Federal Confidentiality of Alcohol and Drug Abuse Patient Records regulations: The Federal rules restrict any use of the information to criminally investigate or prosecute any alcohol or drug abuse patient.[facility] HospitalIn the event this information is protected by the Federal Confidentiality of Alcohol and Drug Abuse Patient Records regulations: The Federal rules restrict any use of the information to criminally investigate or prosecute any alcohol or drug abuse patient.[facility] HospitalIn the event this information is protected by the Federal Confidentiality of Alcohol and Drug Abuse Patient Records regulations: The Federal rules restrict any use of the information to criminally investigate or prosecute any alcohol or drug abuse patient.[facility] HospitalIn the event this information is protected by the Federal Confidentiality of Alcohol and Drug Abuse Patient Records regulations: The Federal rules restrict any use of the information to criminally investigate or prosecute any alcohol or drug abuse patient.[facility] HospitalIn the event this information is protected by the Federal Confidentiality of Alcohol and Drug Abuse Patient Records regulations: The Federal rules restrict any use of the information to criminally investigate or prosecute any alcohol or drug abuse patient.[facility] HospitalIn the event this information is protected by the Federal Confidentiality of Alcohol and Drug Abuse Patient Records regulations: The Federal rules restrict any use of the information to criminally investigate or prosecute any alcohol or drug abuse patient.[facility] HospitalIn the event this information is protected by the Federal Confidentiality of Alcohol and Drug Abuse Patient Records regulations: The Federal rules restrict any use of the information to criminally investigate or prosecute any alcohol or drug abuse patient.[facility] HospitalIn the event this information is protected by the Federal Confidentiality of Alcohol and Drug Abuse Patient Records regulations: The Federal rules restrict any use of the information to criminally investigate or prosecute any alcohol or drug abuse patient.[facility] HospitalIn the event this information is protected by the Federal Confidentiality of Alcohol and Drug Abuse Patient Records regulations: The Federal rules restrict any use of the information to criminally investigate or prosecute any alcohol or drug abuse patient.[facility] HospitalIn the event this information is protected by the Federal Confidentiality of Alcohol and Drug Abuse Patient Records regulations: The Federal rules restrict any use of the information to criminally investigate or prosecute any alcohol or drug abuse patient.[facility] HospitalIn the event this information is protected by the Federal Confidentiality of Alcohol and Drug Abuse Patient Records regulations: The Federal rules restrict any use of the information to criminally investigate or prosecute any alcohol or drug abuse patient.[facility] HospitalIn the event this information is protected by the Federal Confidentiality of Alcohol and Drug Abuse Patient Records regulations: The Federal rules restrict any use of the information to criminally investigate or prosecute any alcohol or drug abuse patient.[facility] HospitalIn the event this information is protected by the Federal Confidentiality of Alcohol and Drug Abuse Patient Records regulations: The Federal rules restrict any use of the information to criminally investigate or prosecute any alcohol or drug abuse patient.[facility] HospitalIn the event this information is protected by the Federal Confidentiality of Alcohol and Drug Abuse Patient Records regulations: The Federal rules restrict any use of the information to criminally investigate or prosecute any alcohol or drug abuse patient.[facility] HospitalIn the event this information is protected by the Federal Confidentiality of Alcohol and Drug Abuse Patient Records regulations: The Federal rules restrict any use of the information to criminally investigate or prosecute any alcohol or drug abuse patient.[facility] HospitalIn the event this information is protected by the Federal Confidentiality of Alcohol and Drug Abuse Patient Records regulations: The Federal rules restrict any use of the information to criminally investigate or prosecute any alcohol or drug abuse patient.[facility] HospitalIn the event this information is protected by the Federal Confidentiality of Alcohol and Drug Abuse Patient Records regulations: The Federal rules restrict any use of the information to criminally investigate or prosecute any alcohol or drug abuse patient.[facility] HospitalIn the event this information is protected by the Federal Confidentiality of Alcohol and Drug Abuse Patient Records regulations: The Federal rules restrict any use of the information to criminally investigate or prosecute any alcohol or drug abuse patient.[facility] HospitalIn the event this information is protected by the Federal Confidentiality of Alcohol and Drug Abuse Patient Records regulations: The Federal rules restrict any use of the information to criminally investigate or prosecute any alcohol or drug abuse patient.[facility] HospitalIn the event this information is protected by the Federal Confidentiality of Alcohol and Drug Abuse Patient Records regulations: The Federal rules restrict any use of the information to criminally investigate or prosecute any alcohol or drug abuse patient.[facility] HospitalIn the event this information is protected by the Federal Confidentiality of Alcohol and Drug Abuse Patient Records regulations: The Federal rules restrict any use of the information to criminally investigate or prosecute any alcohol or drug abuse patient.[facility] HospitalIn the event this information is protected by the Federal Confidentiality of Alcohol and Drug Abuse Patient Records regulations: The Federal rules restrict any use of the information to criminally investigate or prosecute any alcohol or drug abuse patient.[facility] HospitalIn the event this information is protected by the Federal Confidentiality of Alcohol and Drug Abuse Patient Records regulations: The Federal rules restrict any use of the information to criminally investigate or prosecute any alcohol or drug abuse patient.[facility] the event this information is protected by the Federal Confidentiality of Alcohol and Drug Abuse Patient Records regulations: The Federal rules restrict any use of the information to criminally investigate or prosecute any alcohol or drug abuse patient.[facility] HospitalIn the event this information is protected by the Federal Confidentiality of Alcohol and Drug Abuse Patient Records regulations: The Federal rules restrict any use of the information to criminally investigate or prosecute any alcohol or drug abuse patient.[facility] HospitalIn the event this information is protected by the Federal Confidentiality of Alcohol and Drug Abuse Patient Records regulations: The Federal rules restrict any use of the information to criminally investigate or prosecute any alcohol or drug abuse patient.[facility] ClinicIn the event this information is protected by the Federal Confidentiality of Alcohol and Drug Abuse Patient Records regulations: The Federal rules restrict any use of the information to criminally investigate or prosecute any alcohol or drug abuse patient.[facility] HospitalIn the event this information is protected by the Federal Confidentiality of Alcohol and Drug Abuse Patient Records regulations: The Federal rules restrict any use of the information to criminally investigate or prosecute any alcohol or drug abuse patient.[facility] HospitalIn the event this information is protected by the Federal Confidentiality of Alcohol and Drug Abuse Patient Records regulations: The Federal rules restrict any use of the information to criminally investigate or prosecute any alcohol or drug abuse patient.[facility] HospitalIn the event this information is protected by the Federal Confidentiality of Alcohol and Drug Abuse Patient Records regulations: The Federal rules restrict any use of the information to criminally investigate or prosecute any alcohol or drug abuse patient.[facility] HospitalIn the event this information is protected by the Federal Confidentiality of Alcohol and Drug Abuse Patient Records regulations: The Federal rules restrict any use of the information to criminally investigate or prosecute any alcohol or drug abuse patient.[facility] HospitalIn the event this information is protected by the Federal Confidentiality of Alcohol and Drug Abuse Patient Records regulations: The Federal rules restrict any use of the information to criminally investigate or prosecute any alcohol or drug abuse patient.[facility] HospitalIn the event this information is protected by the Federal Confidentiality of Alcohol and Drug Abuse Patient Records regulations: The Federal rules restrict any use of the information to criminally investigate or prosecute any alcohol or drug abuse patient.[facility] HospitalIn the event this information is protected by the Federal Confidentiality of Alcohol and Drug Abuse Patient Records regulations: The Federal rules restrict any use of the information to criminally investigate or prosecute any alcohol or drug abuse patient.[facility] HospitalIn the event this information is protected by the Federal Confidentiality of Alcohol and Drug Abuse Patient Records regulations: The Federal rules restrict any use of the information to criminally investigate or prosecute any alcohol or drug abuse patient.[facility] HospitalIn the event this information is protected by the Federal Confidentiality of Alcohol and Drug Abuse Patient Records regulations: The Federal rules restrict any use of the information to criminally investigate or prosecute any alcohol or drug abuse patient.[facility] HospitalIn the event this information is protected by the Federal Confidentiality of Alcohol and Drug Abuse Patient Records regulations: The Federal rules restrict any use of the information to criminally investigate or prosecute any alcohol or drug abuse patient.[facility] HospitalIn the event this information is protected by the Federal Confidentiality of Alcohol and Drug Abuse Patient Records regulations: The Federal rules restrict any use of the information to criminally investigate or prosecute any alcohol or drug abuse patient.[facility] HospitalIn the event this information is protected by the Federal Confidentiality of Alcohol and Drug Abuse Patient Records regulations: The Federal rules restrict any use of the information to criminally investigate or prosecute any alcohol or drug abuse patient.[facility] Reason for Visit (unrecogniz ed section and content) Reason Comments PT Discharge Specialty Diagnoses / Procedures Referred By Tony t Referred To Contact [facility] Diagnoses Balance disorder Procedures CONSULT TO PHYSICAL THERAPY PHYSICAL THERAPY EVALUATION HIGH COMPLEX 45 MINS Older, Yvonne, CICI.ICT ACCOUNT MANAGER [address] [place] [address] [facility] [address] [place] [address] [place] [address] Referral ID Status Reason Start Date Expiration Date Visits Requested Visits Authorized [id number] Authorized Auto-Generat ed Referral 04/09/2023 04/08/2024 99 99 Reason Comments Physical Therapy Reason Comments Established Patient 3 month follow up- f ell fracture C 6-7 Reason Onset Date Comments Refill Request 07/03/2021 Refill Request 07/04/2021 Reason Comments Established Patient hospital discharge Reason Comments Established Patient Reason Comments Patient Request Reason Comments Post-Op Visit Reason Comments Home Care Decline Reason Onset Date Comments Refill Request 09/02/2021 Reason Comments PT Plan of Care Reason Onset Date Comments Refill Request 09/08/2021 Reason Comments Post-Op Visit Reason Onset Date Comments CDM Enrollment 10/25/2021 [facility] Enrollme nt MCM Sent Reason Onset Date Comments CDM Enrollment 10/26/2021 [facility]Sight Enrollme nt Reason Comments Recheck 4 month follow up Reason Onset Date Comments Refill Request 11/25/2021 Reason Comments Same Day Appointment reoccurring fevers 12/13, 12/20 treated with tylenol Reason Comments OUTSIDE PT/OT ORDER Reason Comments Patient Update Reason Comments F/U 6 months possible uti and hea d issues Reason Onset Date Comments Refill Request 11/17/2022 Reason Comments Follow Up labs from August Reason Comments Urinary Frequency X2 weeks Reason Comments Results Reason Comments Radiology MRI Reason Comments Follow Up labs and questions a bout med- fosamax Reason Onset Date Comments Refill Request 02/27/2023 Reason Onset Date Comments Refill Request 03/08/2023 Reason Comments Orders Reason Comments Imm/Inj Specialty Diagnoses / Procedures Referred By Contac t Referred To Contact Internal Medicine / FAMILY MEDICINE Diagnoses Age-related osteoporosis without current pathological fracture prolia Procedures [place] [address] [place] [address] Luanne Craig MD Referral ID Status Reason Start Date Expiration Date V isits Requested Visits Authorized [id number] Authorized 06/11/2023 06/10/2024 99 99 Reason Comments Recheck 4 month follow up Reason Comments Follow Up Reason Comments PT Eval Reason Comments New Patient New Patient presente d with daughter Marlen, balance issues, memory concerns short term onset 2019. Specialty Diagnoses / Procedures Referred By Contac t Referred To Contact Neurology / NEUROLOGY Diagnoses Balance disorder Dementia without behavioral disturbance (HCC) Shaking Procedures CONSULT TO NEUROLOGY OFFICE/OUTPATIENT NEW HIGH MDM 60 MINUTES Older, CICI [email or web address] ACCOUNT MANAGER [address] [place] [address] Neur Adult [facility] [address] [place] [address] Referral ID Status Reason Start Date Expiration Date V isits Requested Visits Authorized [id number] Closed PCP Requested Referral 09/07/2023 04/08/2024 1 1 Reason Comments Ear Problem right ear -hearing a id stuck in ear x last night Specialty Diagnoses / Procedures Referred By Contac t Referred To Contact MR IMAGING Diagnoses Balance disorder Cervical myelopathy (HCC) Ataxia History of cervical fracture Procedures MRI CERVICAL SPINE WO IVCON MRI SPINAL CANAL CERVICAL W/O CONTRAST MATRMyrna Quiñones Jr., MD [address] [facility] [address] [place] [address] Mr Imaging [place] [address] Referral ID Status Reason Start Date Expiration Date V isits Requested Visits Authorized [id number] Closed Auto-Generate d Referral 09/10/2023 10/09/2024 1 1 Reason Comments F/U 3 Month Neuro and PT Reason Comments Consult Reason Onset Date Comments Allied Health Visit 10/29/2023 Medication A dherence Outreach Reason Comments Consult Specialty Diagnoses / Procedures Referred By Contac t Referred To Contact Gerontology Diagnoses Dementia without behavioral disturbance (HCC) Procedures CONSULT TO GERIATRICS OFFICE/OUTPATIENT [facility] 60 MINUTES Yvonne Valente APRN.ICT ACCOUNT MANAGER [address] [place] [address] [address] [place] [address] Referral ID Status Reason Start Date Expiration Date Visits Requested Visits Authorized [id number] Authorized PCP Requested Referral 04/09/2023 04/08/2024 99 99 Reason Comments Established Patient Memory problems, fal ls worsening Specialty Diagnoses / Procedures Referred By Contac t Referred To Contact Neurology Diagnoses Cerebral amyloid angiopathy (CODE) Procedures CONSULT TO NEUROLOGY OFFICE/OUTPATIENT [facility] 60 MINUTES Myrna Plata Jr., MD [address] [facility] [address] [place] [address] Neur Adult [facility] [address] [place] [address] Referral ID Status Reason Start Date Expiration Date Visits Requested Visits Authorized [id number] Authorized PCP Requested Referral 10/25/2023 04/08/2024 99 99 Reason Onset Date Comments Refill Request 01/18/2024 Reason Onset Date Comments Allied Health Visit 01/21/2024 Medication A dherence Outreach Reason Onset Date Comments Allied Health Visit 02/05/2024 Medication A dherence Outreach Reason Onset Date Comments Refill Request 02/11/2024 Reason Comments Medicare Wellness Exam Reason Onset Date Comments Refill Request 03/14/2024 Reason Comments Diarrhea Loose stool and inco ntinence Reason Comments Medication Problem Reason Comments referral to outside' Reason Comments lab results/appointment question Reason Comments Recheck Bone density test Reason Comments External Referrals/resources Bone Densit y Reason Comments Faxed to [facility] Reason Onset Date Comments Refill Request 06/05/2024 Reason Onset Date Comments Refill Request 06/06/2024 Reason Onset Date Comments Refill Request 06/12/2024 Specialty Diagnoses / Procedures Referred By Contac t Referred To Contact Internal Medicine / FAMILY MEDICINE Diagnoses Age-related osteoporosis without current pathological fracture prolia Procedures [place] [address] [place] [address] Phone: tel: fax: Luanne Craig MD [address] [facility] [place] [place] [address] Phone: tel: fax: Referral ID Status Reason Start Date Expiration Date V isits Requested Visits Authorized [id number] Authorized 06/02/2024 04/08/2025 99 99 Reason Comments Follow Up Geriatric follow up with Ilan Reason Comments F/U 6 months Fell out of bed on S unday night Reason Comments Refill Request Reason Comments Insurance Authorization Reason Comments Medication Question Reason Comments inflammed navel Reason Comments Wart RT hand x 6 months Reason Onset Date Comments Refill Request 09/29/2024 Changed the Phar oskar to local [facility] Reason Comments Established Patient Follow-Up 3 month f/ u Reason Onset Date Comments Refill Request 11/15/2024 Reason Onset Date Comments Refill Request 11/21/2024 Care Teams (unrecognized sec tion and content) Die Cast Supervisor Relationship Specialty Start Date End Date Ashley Roberson MD [address] [place], [place] [id number] PCP - General Internal Medicine 01/19/21 Die Cast Supervisor Relationship Specialty Start Date End Date Ashley Roberson MD [address] [place], [place] [id number] PCP - General Internal Medicine 01/19/21 Die Cast Supervisor Relationship Specialty Start Date End Date Ashley Roberson MD [address] [facility] [place] [address] PCP - General Internal Medicine 01/19/21 Die Cast Supervisor Relationship Specialty Start Date End Date Ashley Roberson MD [address] [facility] [place] [address] PCP - General Internal Medicine 01/19/21 Die Cast Supervisor Relationship Specialty Start Date End Date Ashley Roberson MD [address] [facility] [place] [address] PCP - General Internal Medicine 01/19/21 Die Cast Supervisor Relationship Specialty Start Date End Date Ashley Roberson MD [address] [facility] [place] [address] PCP - General Internal Medicine 01/19/21 Die Cast Supervisor Relationship Specialty Start Date End Date Ashley Roberson MD [address] [facility] [place] [address] PCP - General Internal Medicine 01/19/21 Die Cast Supervisor Relationship Specialty Start Date End Date Ashley Roberson MD [address] [facility] [place] [address] PCP - General Internal Medicine 01/19/21 Die Cast Supervisor Relationship Specialty Start Date End Date Ashley Roberson MD [address] [facility] [place] [address] PCP - General Internal Medicine 01/19/21 Die Cast Supervisor Relationship Specialty Start Date End Date Ashley Roberson MD [address] [facility] [place] [address] PCP - General Internal Medicine 01/19/21 Die Cast Supervisor Relationship Specialty Start Date End Date Ashley Roberson MD [address] [facility] [place] [address] PCP - General Internal Medicine 01/19/21 Die Cast Supervisor Relationship Specialty Start Date End Date Ashley Roberson MD [address] [place] [address] PCP - General Internal Medicine 01/19/21 Die Cast Supervisor Relationship Specialty Start Date End Date Ashley Roberson MD [address] [place] [address] PCP - General Internal Medicine 01/19/21 Die Cast Supervisor Relationship Specialty Start Date End Date Ashley Roberson MD [address] [facility] [place] [address] PCP - General Internal Medicine 01/19/21 Die Cast Supervisor Relationship Specialty Start Date End Date Ashley Roberson MD [address] [facility] [place] [address] PCP - General Internal Medicine 01/19/21 Die Cast Supervisor Relationship Specialty Start Date End Date Ashley Roberson MD [address] [facility] [place] [address] PCP - General Internal Medicine 01/19/21 Die Cast Supervisor Relationship Specialty Start Date End Date Ashley Roberson MD [address] [facility] [place] [address] PCP - General Internal Medicine 01/19/21 Die Cast Supervisor Relationship Specialty Start Date End Date Ashley Roberson MD [address] [facility] [place] [address] PCP - General Internal Medicine 01/19/21 Die Cast Supervisor Relationship Specialty Start Date End Date Ashley Roberson MD [address] [place] [address] PCP - General Internal Medicine 01/19/21 Die Cast Supervisor Relationship Specialty Start Date End Date Ashley Roberson MD [address] [place] [address] PCP - General Internal Medicine 01/19/21 Die Cast Supervisor Relationship Specialty Start Date End Date Ashley Roberson MD [address] [facility] [place] [address] PCP - General Internal Medicine 01/19/21 Die Cast Supervisor Relationship Specialty Start Date End Date Ashley Roberson MD [address] [facility] [place] [address] PCP - General Internal Medicine 01/19/21 Die Cast Supervisor Relationship Specialty Start Date End Date Ashley Roberson MD [address] [facility] [place] [address] PCP - General Internal Medicine 01/19/21 Die Cast Supervisor Relationship Specialty Start Date End Date Ashley Roberson MD [address] [facility] [place] [address] PCP - General Internal Medicine 01/19/21 Die Cast Supervisor Relationship Specialty Start Date End Date Ashley Roberson MD [address] [facility] [place] [address] PCP - General Internal Medicine 01/19/21 Die Cast Supervisor Relationship Specialty Start Date End Date Ashley Roberson MD [address] [facility] [place] [address] PCP - General Internal Medicine 01/19/21 Die Cast Supervisor Relationship Specialty Start Date End Date Ashley Roberson MD [address] [facility] [place] [address] PCP - General Internal Medicine 01/19/21 Die Cast Supervisor Relationship Specialty Start Date End Date Ashley Roberson MD [address] [facility] [place] [address] PCP - General Internal Medicine 01/19/21 Die Cast Supervisor Relationship Specialty Start Date End Date Ashley Roberson MD [address] [place] [address] PCP - General Internal Medicine 01/19/21 Die Cast Supervisor Relationship Specialty Start Date End Date Ashley Roberson MD [address] [place] [address] PCP - General Internal Medicine 01/19/21 Die Cast Supervisor Relationship Specialty Start Date End Date Ashley Roberson MD [address] [place] [address] PCP - General Internal Medicine 01/19/21 Die Cast Supervisor Relationship Specialty Start Date End Date Ashley Roberson MD [address] [place] [address] PCP - General Internal Medicine 01/19/21 Die Cast Supervisor Relationship Specialty Start Date End Date Ashlye Roberson MD [address] [place] [address] PCP - General Internal Medicine 01/19/21 Die Cast Supervisor Relationship Specialty Start Date End Date Ashley Roberson MD [address] [place] [address] PCP - General Internal Medicine 01/19/21 Die Cast Supervisor Relationship Specialty Start Date End Date Ashley Roberson MD [address] [place] [address] PCP - General Internal Medicine 01/19/21 Die Cast Supervisor Relationship Specialty Start Date End Date Ashley Roberson MD [address] [place] [address] PCP - General Internal Medicine 01/19/21 Die Cast Supervisor Relationship Specialty Start Date End Date Ashley Roberson MD [address] [place] [address] PCP - General Internal Medicine 01/19/21 Die Cast Supervisor Relationship Specialty Start Date End Date Ashley Roberson MD [address] [place] [address] PCP - General Internal Medicine 01/19/21 Die Cast Supervisor Relationship Specialty Start Date End Date Ashley Roberson MD [address] [place] [address] PCP - General Internal Medicine 01/19/21 Die Cast Supervisor Relationship Specialty Start Date End Date Ashley Roberson MD [address] [place] [address] PCP - General Internal Medicine 01/19/21 Die Cast Supervisor Relationship Specialty Start Date End Date Ashley Roberson MD [address] [place] [address] PCP - General Internal Medicine 01/19/21 Die Cast Supervisor Relationship Specialty Start Date End Date Ashley Roberson MD [address] [place] [address] PCP - General Internal Medicine 01/19/21 Die Cast Supervisor Relationship Specialty Start Date End Date Ashley Roberson MD [address] [place] [address] PCP - General Internal Medicine 01/19/21 Die Cast Supervisor Relationship Specialty Start Date End Date Ashley Roberson MD [address] [place], [place] [address] PCP - General Internal Medicine 01/19/21 Die Cast Supervisor Relationship Specialty Start Date End Date Ashley Roberson MD [address] [place] [address] PCP - General Internal Medicine 01/19/21 Die Cast Supervisor Relationship Specialty Start Date End Date Ashley Roberson MD [address] [place] [address] PCP - General Internal Medicine 01/19/21 Die Cast Supervisor Relationship Specialty Start Date End Date Ashley Roberson MD [address] [place] [address] PCP - General Internal Medicine 01/19/21 Die Cast Supervisor Relationship Specialty Start Date End Date Ashley Roberson MD [address] [place] [address] PCP - General Internal Medicine 01/19/21 Die Cast Supervisor Relationship Specialty Start Date End Date Ashley Roberson MD [address] [place] [address] PCP - General Internal Medicine 01/19/21 Elin Lawrence PA-C [address] [place] [address] Asset Liability Analyst Family Medicine 03/16/24 Yvonne Valente APRN.CNP [address] [place] [address] Asset Liability Analyst Internal Medicine 03/16/24 Mi Burns PA-C [address] [place] [address] Asset Liability Analyst Family [facility] 03/16/24 Die Cast Supervisor Relationship Specialty Start Date End Date Ashley Roberson MD [address] [place] [address] PCP - General Internal Medicine 01/19/21 Elin Lawrence PA-C [address] [place] [address] [phone] Asset Liability Analyst Family Medicine 03/16/24 Yvonne Valente APRN.ICT ACCOUNT MANAGER [address] [place] [address] Asset Liability Analyst Internal Medicine 03/16/24 Mi Burns PA-C [address] [place] [address] [facility] 03/16/24 Die Cast Supervisor Relationship Specialty Start Date End Date Ashley Roberson MD [address] [place] [address] PCP - General Internal Medicine 01/19/21 Elin Lawrence PA-C [address] [place] [phone] Asset Liability Analyst Family Medicine 03/16/24 Yvonne Valente, LOFT WORKER.ICT ACCOUNT MANAGER [address] [place] [address] Asset Liability Analyst Internal Medicine 03/16/24 Mi Burns PA-C [address] [place] [address] Asset Liability Analyst Family Medicine 03/16/24 Die Cast Supervisor Relationship Specialty Start Date End Date Ashley Roberson MD [address] [facility] [place] [address] PCP - General Internal Medicine 01/19/21 Elin Lawrence PA-C [address] [place] [address] Asset Liability Analyst Family Medicine 03/16/24 Yvonne Valente APRN.ICT ACCOUNT MANAGER [address] [place] [address] Asset Liability Analyst Internal Medicine 03/16/24 Mi Burns PA-C [address] [facility] [place] [address] Asset Liability Analyst Family Medicine 03/16/24 Die Cast Supervisor Relationship Specialty Start Date End Date Ashley Roberson MD [address] [facility] [place] [address] PCP - General Internal Medicine 01/19/21 Elin Lawrence PA-C [address] [place] [address] Asset Liability Analyst Family Medicine 03/16/24 Yvonne Valente APRN.ICT ACCOUNT MANAGER [address] [place] [address] Asset Liability Analyst Internal Medicine 03/16/24 Mi Burns PA-C [address] [facility] [place] [address] Asset Liability Analyst Family Medicine 03/16/24 Die Cast Supervisor Relationship Specialty Start Date End Date Ashley Roberson MD [address] [facility] [place] [address] PCP - General Internal Medicine 01/19/21 Elin Lawrence PA-C [address] [place] [address] Asset Liability Analyst Family Medicine 03/16/24 Yvonne Valente APRN.ICT ACCOUNT MANAGER [address] [place] [address] Asset Liability Analyst Internal Medicine 03/16/24 Mi Burns PA-C [address] [place] [address] Asset Liability Analyst Family [facility] 03/16/24 Die Cast Supervisor Relationship Specialty Start Date End Date Ashley Roberson MD [address] [place] [address] PCP - General Internal Medicine 01/19/21 Elin Lawrence PA-C [address] [place] [address] Asset Liability Analyst Family Medicine 03/16/24 Yvonne Valente APRN.ICT ACCOUNT MANAGER [address] [place] [address] Asset Liability Analyst Internal Medicine 03/16/24 Mi Burns PA-C [address] [place] [address] Asset Liability Analyst Family Medicine 03/16/24 Die Cast Supervisor Relationship Specialty Start Date End Date Ashley Roberson MD [address] [place] [address] PCP - General Internal Medicine 01/19/21 Elin Lawrence PA-C [address] [place], [place] [phone] Asset Liability Analyst Family Medicine 03/16/24 Yvonne Valente APRN.ICT ACCOUNT MANAGER [address] [place] [address] Asset Liability Analyst Internal Medicine 03/16/24 Mi Burns PA-C [address] [place] [address] Asset Liability Analyst Family Medicine 03/16/24 Die Cast Supervisor Relationship Specialty Start Date End Date Ashley Roberson MD [address] [place] [address] PCP - General Internal Medicine 01/19/21 Elin Lawrence PA-C [address] [place] [address] Asset Liability Analyst Family Medicine 03/16/24 Yvonne Valente APRN.ICT ACCOUNT MANAGER [address] [place] [address] Asset Liability Analyst Internal Medicine 03/16/24 Mi Burns PA-C [address] [place] [address] Asset Liability Analyst Family [facility] 03/16/24 Die Cast Supervisor Relationship Specialty Start Date End Date Ashley Roberson MD [address] [place] [address] PCP - General Internal Medicine 01/19/21 Elin Lawrence PA-C [address] [place], [place] [id number] Asset Liability Analyst Family Medicine 03/16/24 Yvonne Valente APRN.ICT ACCOUNT MANAGER [address] [place] [address] Asset Liability Analyst Internal Medicine 03/16/24 Mi Burns PA-C [address] [place] [address] Asset Liability Analyst Family Medicine 03/16/24 Die Cast Supervisor Relationship Specialty Start Date End Date Ashley Roberson MD [address] [place] [address] PCP - General Internal Medicine 01/19/21 Elin Lawrence PA-C [address] [place] [address] Asset Liability Analyst Family Medicine 03/16/24 Yvonne Valente, LOFT WORKER.ICT ACCOUNT MANAGER [address] [place] [address] Asset Liability Analyst Internal Medicine 03/16/24 Mi Burns PA-C [address] [place] [address] Asset Liability Analyst Family Medicine 03/16/24 Die Cast Supervisor Relationship Specialty Start Date End Date Ashley Roberson MD [address] [place] [address] PCP - General Internal Medicine 01/19/21 Elin Lawrence PA-C [address] [place] [address] Asset Liability Analyst Family Medicine 03/16/24 Yvonne Valente APRN.ICT ACCOUNT MANAGER [address] [facility] [place] [address] Asset Liability Analyst Internal Medicine 03/16/24 Mi Burns PA-C [address] [place] [address] Asset Liability Analyst Family Medicine 03/16/24 Team Status: Active Member Role Status Dates Dr. Ashley Roberson MD Primary Care Provider Active Team Status: Inactive Member Role Status Dates Dr. Ashley Roberson MD Primary Care Provider Active Start: June 17, 2024 End: June 17, 2024 Dr. Ashley Roberson MD Attending Provider Active Start: June 17, 2024 End: June 17, 2024 Dr. Ashley Roberson MD Referring Provider Active Start: June 17, 2024 End: June 17, 2024 Die Cast Supervisor Relationship Specialty Start Date End Date Ashley Roberson MD [address] [place] [address] PCP - General Internal Medicine 01/19/21 Yvonne Valente APRN.ICT ACCOUNT MANAGER [address] [facility] [place] [address] Asset Liability Analyst Internal Medicine 03/16/24 Die Cast Supervisor Relationship Specialty Start Date End Date Ashley Roberson MD [address] [place] [address] PCP - General Internal Medicine 01/19/21 Yvonne Valente APRN.ICT ACCOUNT MANAGER [address] [facility] [place] [address] Asset Liability Analyst Internal Medicine 03/16/24 Die Cast Supervisor Relationship Specialty Start Date End Date Ashley Roberson MD [address] [place] [address] PCP - General Internal Medicine 01/19/21 Yvonne Valente APRN.ICT ACCOUNT MANAGER [address] [place] [address] Asset Liability Analyst Internal Medicine 03/16/24 Die Cast Supervisor Relationship Specialty Start Date End Date Ashley Roberson MD [address] [place] [address] PCP - General Internal Medicine 01/19/21 Yvonne Valente APRN.ICT ACCOUNT MANAGER [address] [place] [address] Asset Liability Analyst Internal Medicine 03/16/24 Die Cast Supervisor Relationship Specialty Start Date End Date Ashley Roberson MD [address] [place] [address] PCP - General Internal Medicine 01/19/21 Yvonne Valente APRN.ICT ACCOUNT MANAGER [address] [place] [address] Asset Liability Analyst Internal Medicine 03/16/24 Die Cast Supervisor Relationship Specialty Start Date End Date Ashley Roberson MD [address] [place] [address] PCP - General Internal Medicine 01/19/21 Yvonne Valente APRN.ICT ACCOUNT MANAGER [address] [facility] [place] [address] Asset Liability Analyst Internal Medicine 03/16/24 Die Cast Supervisor Relationship Specialty Start Date End Date Ashley Roberson MD [address] [place] [address] PCP - General Internal Medicine 01/19/21 Yvonne Valente LOFT WORKER.ICT ACCOUNT MANAGER [address] [place] [address] Asset Liability Analyst Internal Medicine 03/16/24 Die Cast Supervisor Relationship Specialty Start Date End Date Ashley Roberson MD [address] [place] [address] PCP - General Internal Medicine 01/19/21 Yvonen Valente LOFT WORKER.ICT ACCOUNT MANAGER [address] [place] [address] Asset Liability Analyst Internal Medicine 03/16/24 Die Cast Supervisor Relationship Specialty Start Date End Date Ashley Roberson MD [address] [place] [address] PCP - General Internal Medicine 01/19/21 Yvonne Valente, LOFT WORKER.ICT ACCOUNT MANAGER [address] [place] [address] Asset Liability Analyst Internal Medicine 03/16/24 Die Cast Supervisor Relationship Specialty Start Date End Date Ashley Roberson MD [address] [place] [address] PCP - General Internal Medicine 01/19/21 Yvonne Valente, LOFT WORKER.ICT ACCOUNT MANAGER [address] [place] [address] Asset Liability Analyst Internal Medicine 03/16/24 Die Cast Supervisor Relationship Specialty Start Date End Date Ashley Roberson MD [address] [place] [address] PCP - General Internal Medicine 01/19/21 Older, Yvonne, LOFT WORKER.ICT ACCOUNT MANAGER [address] [facility], [place] [address] Asset Liability Analyst Internal Medicine 03/16/24 Die Cast Supervisor Relationship Specialty Start Date End Date Ashley Roberson MD [address] [facility] [place], [place] [address] PCP - General Internal Medicine 01/19/21 Yvonne Valente, LOFT WORKER.ICT ACCOUNT MANAGER [address] [facility], [place] [address] Asset Liability Analyst Internal Medicine 03/16/24 Die Cast Supervisor Relationship Specialty Start Date End Date Ashley Roberson MD [address] [facility] [place], [place] [address] PCP - General Internal Medicine 01/19/21 Yvonne Valente, LOFT WORKER.ICT ACCOUNT MANAGER [address] [facility], [place] [address] Asset Liability Analyst Internal Medicine 03/16/24 Team Status: Active Member Role/Relationship Status Dates Dr. Ashley Roberson MD Primary care physician Active Team Status: Inactive Member Role/Relationship Status Dates Dr. Ashley Roberson MD Primary care physician Active Start: January 24, 2025 End: January 27, 2025 Dr. Dereck Warner MD Emergency Depart ment Physician Active Start: January 24, 2025 End: January 27, 2025 Dr. Brice Avila , Admitting physician Active Start: January 24, 2025 End: January 27, 2025 Dr. Brice Avila , Nurse Practitioner Active Start: January 24, 2025 End: January 27, 2025 Dr. Lico Chance , Nurse Practitioner Active Start: January 24, 2025 End: January 27, 2025 Dr. Jonah Mckoy , Attending physician Active Start: January 24, 2025 End: January 27, 2025 Dr. Oscar Saravia MD Nurse Practitioner Active Start: January 24, 2025 End: January 27, 2025 Team Status: Active Member Role/Relationship Status Dates Dr. Ashley Roberson MD Primary care physician Active Start: January 24, 2025 Dr. Dereck Warner MD Emergency Depart ment Physician Active Start: January 24, 2025 Dr. Brice Avila DO Admitting physician Active Start: January 24, 2025 Dr. Brice Avila DO Attending physician Active Start: January 24, 2025 Dr. Brice Avila DO Nurse Practitioner Active Start: January 24, 2025 Dr. Lico Chance DO Nurse Practitioner Active Start: January 24, 2025 Team Status: Active Member Role/Relationship Status Dates Dr. Ashley Roberson MD Primary care physician Active Start: January 25, 2025 Dr. Alec Jack MD Attending physician Active Start: January 25, 2025 Dr. Brice Avila DO Referring Provider Active Start: January 25, 2025 Team Status: Active Member Role/Relationship Status Dates Dr. Ashley Roberson MD Primary care physician Active Start: January 25, 2025 Dr. Dereck Warner MD Emergency Depart ment Physician Active Start: January 25, 2025 Dr. Brice Avila DO Admitting physician Active Start: January 25, 2025 Dr. Brice Avila DO Attending physician Active Start: January 25, 2025 Dr. Brice Avila DO Nurse Practitioner Active Start: January 25, 2025 Dr. Lico Chance DO Nurse Practitioner Active Start: January 25, 2025 Team Status: Active Member Role/Relationship Status Dates Dr. Ashley Roberson MD Primary care physician Active Start: January 26, 2025 Dr. Dereck Warner MD Emergency Depart ment Physician Active Start: January 26, 2025 Dr. Brice Avila DO Admitting physician Active Start: January 26, 2025 Dr. Brice Avila DO Nurse Practitioner Active Start: January 26, 2025 Dr. Lico Chance DO Nurse Practitioner Active Start: January 26, 2025 Dr. Jonah Mckoy DO Attending physician Active Start: January 26, 2025 Dr. Jonah Mckoy DO Nurse Practitioner Active Start: January 26, 2025 Dr. Oscar Saravia MD Nurse Practitioner Active Start: January 26, 2025 Team Status: Active Member Role/Relationship Status Dates Dr. Ashley Roberson MD Primary care physician Active Start: January 27, 2025 Dr. Dereck Warner MD Emergency Depart ment Physician Active Start: January 27, 2025 Dr. Brice Avila DO Admitting physician Active Start: January 27, 2025 Dr. Brice Avila , DO Nurse Practitioner Active Start: January 27, 2025 Dr. Lico Chance , Nurse Practitioner Active Start: January 27, 2025 Dr. Jonah Mckoy , Attending physician Active Start: January 27, 2025 Dr. Jonah Mckoy , DO Nurse Practitioner Active Start: January 27, 2025 Dr. Oscar Saravia MD Nurse Practitioner Active Start: January 27, 2025 Goals (unrecognized section and content) Goals may be documented in a n alternate sectionGoals may be documented in an alternate section Active Administered Medications - up to 3 most recent administrations Administered Medications (un recognized section and content) Medication Order MAR Action Action Date Dose Rate Site denosumab 60 mg injection (PROLIA) 60 mg, SUBCUTANEOUS, EVERY 6 MONTHS, 2 doses, First dose on Heidi 06/21/23 at 0000, Last dose on 12/18/23 at 0000, Allow To Come To Room Temperature Before Administration. REFRIGERATE Given 06/22/2023 11:33 AM EDT 60 mg Arm, Left FOR RECORDS PERTAINING TO PATIENTS WHO ARE OR HAVE BEEN ENROLLED IN A CHEMICAL DEPENDENCY/SUBSTANCEABUSE PROGRAM, SOME INFORMATION MAY BE OMITTED. This clinical summary was aggregated from multiple sources. Caution should be exercised in using it in the provision of clinical care. This summary normalizes information from multiple sources, and as a consequence, information in this document may materially change the coding, format and clinical context of patient data. In addition, data may be omitted in some cases. CLINICAL DECISIONS SHOULD BE BASED ON THE PRIMARY CLINICAL RECORDS. [employer] provides no warranty or guarantee of the accuracy or completeness of information in this document.
[2025-03-11 08:37] VITALS: BP 139/82; PULSE 101; RESP 16; O2SAT 98
[2025-03-11 09:00] VITALS: BP 139/82; PULSE 96; RESP 16; TEMP 36.7; O2SAT 98
--- NOTE | 2025-03-11 09:06 | ED.RN ---
Patient ambulated with walker. Patient assisted out of bed with RN help. Patient states she walks with a walker. Patient ambulates independently with walker. Dr. Hatch in hallway watching patient ambulate. patient and S.O. state she is walking how she normally does and feel safe to take her home.
== END 2025-03-11 09:18 | disposition home or self-care (01) ==
PROVIDERS: Emergency Provider Student in an Organized Health Care Education/Training Program; PCP Internal Medicine; Visit Provider Student in an Organized Health Care Education/Training Program
DX: M25.562 Pain in left knee (principal); F03.90 Unspecified dementia, unspecified severity, without behavioral disturbance, psychotic disturbance, mood disturbance, and anxiety; M79.89 Other specified soft tissue disorders
CPT/HCPCS: 73564; 93971; 99284